=== PATIENT | female | born 1945 | race Caucasian/White ===

== ENCOUNTER → 2017-10-24 10:29 | Outpatient (CLI) | payer MEDICARE, SELFPAY ==
--- NOTE | 2017-10-24 10:39 | NM_ITS ---
CLINICAL: 71-year-old female with reported history of carcinoma of the breast presenting for evaluation of resting left ventricular myocardial function. RESTING RADIONUCLIDE VENTRICULOGRAPHY COMPARISON: None available FINDINGS: Following the intravenous administration of 25.8 mCi of 99m Tc Ultratag RBCs, the resting labeled blood pool radionuclide ventriculogram reveals: 1. The left ventricular ejection fraction was calculated to be 59.0 % by equilibrium technique. 2. Left and right ventricular wall motion is considered normal and uniform in all projections. NM/MUGA Rest or Stress - Multi IMPRESSION: 1. NORMAL resting labeled blood pool radionuclide ventriculography. A. Preservation of left ventricular systolic function as described above. Electronically Signed: Rayo Melvin DO at 12:44 EDT Tel , Service support ,
== END ==
PROVIDERS: Visit Provider Internal Medicine Medical Oncology
DX: Z01.818 Encounter for other preprocedural examination (principal); C50.911 Malignant neoplasm of unspecified site of right female breast
CPT/HCPCS: 78473; A9560

== ENCOUNTER 2017-10-28 08:47 | Day surgery (SDC) | payer MEDICARE, SELFPAY ==
[2017-10-28] VITALS (8 sets, daily range): BP systolic 123–142; BP diastolic 61–89; PULSE 53–79; RESP 14–18; TEMP 36.4–36.6; O2SAT 92–100; BMI 32.3
[2017-10-28] MEDS: Cefazolin 2 GM in 0.9% Normal Saline 100 ML IV (10:00)
[2017-10-28] MEDS: Bupivacaine Mpf 0.5% 30 ML VIAL (10:18)
--- NOTE | 2017-10-28 11:00 | RAD_ITS ---
STUDY: X-RAY CHEST REASON FOR EXAM: Female, 71 years old. Post port placement. TECHNIQUE: Single AP portable view of the chest. COMPARISON: None. FINDINGS: A left-sided portacatheter has been inserted. The tip is in the midportion of the superior vena cava. Scattered calcified granulomas. Mild lingular scarring. There is no demonstrated pleural abnormality. Normal size heart. Normal mediastinum and rah. Normal visualized pulmonary arteries. There is atherosclerotic calcification of the aortic arch with tortuosity. Normal visualized thoracic spine. Normal visualized ribs, clavicles, and shoulders. There is no demonstrated abnormality of the visualized soft tissue structures of the upper abdomen. RAD/Chest 1 View (Portable) IMPRESSION: The tip of the port is in the midportion of the superior vena cava. Electronically Signed: Chang Shepard MD at 11:59 EDT Tel [phone], Service support ,
--- NOTE | 2017-10-28 11:16 | DCINST_ITS ---
Discharge Diet: No Restrictions - Pain medication may cause nausea. You should typically eat light foods as you take your pain medication. Discharge Activity: Return to Normal Activity, May Shower - with your bandage in place in 1-2 days after surgery. DO NOT SHOWER WHEN YOUR PORT IS ACCESSED. Call your doctor if your incision/area has: Continuous Slow Oozing, Sudden Increased Bleeding, Increased Pain/ Swelling, Increased Redness Call your doctor if you observe: Fever of 101 or Higher Remove Dressing in (days):: 2 - When you remove the bandage, leave the steri- strips intact until they fall off. Allergies/Adverse Reactions: Allergies No Known Allergies Allergy (Verified 10/24/17 09:32) Medications to take at Discharge Albuterol Aerosols [Ventolin Aerosols] PRN 10/21/17 Albuterol Inhaler [Ventolin Hfa] INHALATION DAILY 10/21/17 Fluticasone/Vilanterol [Breo Ellipta 200-25 Mcg INH] INHALATION QODAY 10/21/17 Levothyroxine [Synthroid] 137 mcg PO DAILY 10/21/17 Metformin HCl [Metformin HCl ER] 500 mg PO DAILY 10/21/17 Primary Care Physician: Bessy Asher [Primary Care Provider] - Please Follow Up With: Laith English MD When: call tomorrow to make 7-10 day appt for suture removal [phone]
--- NOTE | 2017-10-28 11:16 | PCM.OPRPT ---
Problem List (1) Breast cancer, right breast Status: Chronic Qualifiers: Breast location: upper outer quadrant of breast Estrogen receptor status: positive Patient sex: female Qualified Code(s): C50.411 - Malignant neoplasm of upper-outer quadrant of right female breast; Z17.0 - Estrogen receptor positive status [ER+] (2) Encounter for insertion of venous access port Status: Acute Report of Operation Date of Procedure: 10/28/17 Pre-Operative Diagnosis: Breast cancer. Encounter for venous vascular device Post-Operative Diagnosis: Same Surgery/Procedure Performed:: Ultrasound and fluoroscopy-guided left chest port placement utilizing left IJ Description of Procedure: After obtaining informed consent patient was brought back to the operating room MAC anesthesia was induced and the left chest and neck were prepped in normal sterile fashion. Ultrasound was used to evaluate both IJ is in the left IJ was selected. Next, using a needle, the left IJ was accessed and a guidewire was passed on into the superior vena cava under fluoroscopy guidance. A small incision was made over the puncture site and the dilator introducer was placed over the guidewire. Next this was capped and the pocket was made for the port. 1% lidocaine with epinephrine was injected in the proposed port site. An incision was made with scalpel. Electrocautery was used to make a pocket under the skin and subcutaneous tissue. Hemostasis was obtained. Next, the catheter was tunneled up to the neck incision site and placed through the introducer. The peel-away introducer was removed and the position of the catheter was confirmed on fluoroscopy. Next, the catheter was trimmed and attached to the port with the locking device. Interrupted 2-0 PDS were used to anchor the port to the chest wall and then the port was placed inside the pocket. The pocket was then flushed with saline and the port irrigated with saline. There was good blood return and the port flushed easily. Next, heparin was injected into the port. The skin was closed with subcutaneous interrupted 3-0 Vicryl sutures and interrupted skin 3-0 nylon sutures. A single 3-0 Vicryl sutures placed under the skin at the neck incision site. Steri-Strips were placed as well as op sites. Patient tolerated procedure well, was taken to PACU in stable condition. Chest x-ray will be obtained. Grafts/Implants Used: 8 [employer] - Admit VTE Documentation VTE Present on Admission: Yes
== END 2017-10-28 13:01 | disposition home or self-care (01) ==
LOC: SDC 08:48 → AC 08:50
PROVIDERS: Visit Provider Surgery
PROC: (CPT 36561; principal; 2017-10-28 10:15)
DX: Z45.2 Encounter for adjustment and management of vascular access device (principal); C50.411 Malignant neoplasm of upper-outer quadrant of right female breast; Z17.0 Estrogen receptor positive status [ER+]; F17.200 Nicotine dependence, unspecified, uncomplicated; J45.909 Unspecified asthma, uncomplicated
CPT/HCPCS: 36561; 96372; 71045; 77001; J7120; C1788

== ENCOUNTER → 2018-01-06 14:17 | Outpatient (CLI) | payer MEDICARE, SELFPAY ==
--- NOTE | 2018-01-06 14:20 | ECHOD_ITS ---
Reason For Study: Breast Cancer, high risk meds. Procedure This was a 2D Doppler, Color Flow transthoracic echocardiogram. The study was technically difficult. Exam performed in department. Left Ventricle Normal LV size. Left ventricular systolic function is normal. The estimated ejection fraction is 55 %. No regional wall motion abnormalities noted. Right Ventricle Normal RV size. Normal systolic function. Atria The left atrium is mildly enlarged. Normal right atrium. No doppler evidence for ASD. Mitral Valve There is no mitral annular calcification. Mild focal mitral valve calcification of the posterior leaflet. Mild (1+) mitral valve insufficiency. Tricuspid Valve Normal tricuspid valve. Trivial tricuspid valve insufficiency. Unable to estimate RV systolic pressure/pulmonary artery pressure due to technically difficult study. Aortic Valve The aortic valve is not well visualized. Pulmonic Valve The pulmonic valve is not well visualized. Great Vessels Normal sized aortic root. Pericardium/Pleural No pericardial effusion. MMode/2D Measurements & Calculations LVIDd: 5.3 cm IVSd: 1.1 cm Ao root diam: 2.6 cm LVIDs: 3.2 cm LVPWd: 1.2 cm LA dimension: 3.9 cm RVDd: 3.5 cm FS: 39.0 % LAV(MOD-bp): 90.8 ml LA A4 area: 25.0 cm2 RA A4 area: 14.8 cm2 LAV(MOD-bp) Indexed: 49.4 ml/m2 LAV(MOD-sp2): 87.8 ml LAV(MOD-sp4): 88.2 ml Doppler Measurements & Calculations MV E max jefry: 109.0 cm/sec Lat Peak E' Jefry: 9.7 cm/sec Med Peak E' Jefry: 8.0 cm/sec MV A max jefry: 103.1 cm/sec E/E' lat: 11.2 E/E' med: 13.6 MV E/A: 1.1 Ao V2 max: 148.7 cm/sec LV V1 max: 106.4 cm/sec PA V2 max: 91.3 cm/sec Ao max P.8 mmHg LV V1 max P.5 mmHg Interpretation Summary The study was technically difficult. Left ventricular systolic function is normal. The estimated ejection fraction is 55 %. The left atrium is mildly enlarged. Mild focal mitral valve calcification of the posterior leaflet. Mild (1+) mitral valve insufficiency. Trivial tricuspid valve insufficiency. Unable to estimate RV systolic pressure/pulmonary artery pressure due to technically difficult study. Transmitral diastolic flow velocities suggest diastolic dysfunction (pseudonormal pattern). Ordering Physician: Eloise New Referring Physician: Gayle Asher Performed By: Carissa Chow, ALEXANDRA, RVT
== END ==
DX: C50.919 Malignant neoplasm of unspecified site of unspecified female breast (principal); Z79.899 Other long term (current) drug therapy
CPT/HCPCS: 93306

== ENCOUNTER → 2018-02-10 11:52 | Outpatient (CLI) | payer MEDICARE, SELFPAY | PROVIDERS: Visit Provider Internal Medicine Medical Oncology | DX: R19.7 Diarrhea, unspecified (principal) | CPT/HCPCS: 87493 ==

== ENCOUNTER 2018-02-12 12:16 | Inpatient (IN) | payer MEDICARE, SELFPAY ==
[2018-02-12] VITALS (12 sets, daily range): BP systolic 108–127; BP diastolic 38–94; PULSE 69–116; RESP 16–19; TEMP 36.5–37.4; O2SAT 95–100; BMI 27.8; BMI 28.0; BMI 28.1
--- NOTE | 2018-02-12 12:51 | EKG12_ITS ---
Test Reason : ABN LABS Blood Pressure : / mmHG Vent. Rate : 090 BPM Atrial Rate : 090 BPM P-R Int : 150 ms QRS Dur : 084 ms QT Int : 378 ms P-R-T Axes : 034 072 257 degrees QTc Int : 462 ms Sinus rhythm with Premature atrial complexes ST & T wave abnormality, consider inferior ischemia ST & T wave abnormality, consider anterolateral ischemia Abnormal ECG Confirmed by JAZMINE SALDIVAR, ELLIOT ([id number]), make up editor KATLYN ALBERTO ([id number]) on 02/16/2018 3:01:11 PM Referred By: ANANT Confirmed By:ELLIOT LUCERO MD
[2018-02-12] MEDS: Ondansetron 4 MG/2 ML Vial IV ×2 (12:57→20:14)
[2018-02-12] MEDS: 0.9% Normal Saline 1,000 ML 150 ML IV ×2 (12:57→19:28)
--- NOTE | 2018-02-12 12:57 | ED.RN ---
NO OLD EKG
--- NOTE | 2018-02-12 13:25 | HP.PCM_ITS ---
Problem List (1) Diarrhea Status: Acute Qualifiers: Diarrhea type: unspecified type Qualified Code(s): R19.7 - Diarrhea, unspecified (2) Chemotherapy-induced nausea Status: Acute (3) Asthma with COPD Status: Chronic (4) Tobacco use Status: Chronic (5) History of alcohol abuse Status: Chronic (6) Prediabetes Status: Chronic (7) Hypothyroidism (acquired) Status: Chronic (8) Breast cancer, right breast Status: Chronic Qualifiers: Breast location: upper outer quadrant of breast Estrogen receptor status: positive Patient sex: female Qualified Code(s): C50.411 - Malignant neoplasm of upper-outer quadrant of right female breast; Z17.0 - Estrogen receptor positive status [ER+] History of Present Illness Date of Admission: 02/12/18 Chief Complaint: Malaise, Weakness, Diarrhea, Electrolyte disturbances The patient is a 72 y/o F w/ PMHx: Asthma w/ Suspected Chronic COPD, Ongoing Tobacco use, Prediabetes, History of EtOH Abuse, Hyperthyroidism s/p irradiation -->hypothyroidism, 07/2017 Dx R Breast CA right breast specifically invasive ductal carcinoma, and metastatic disease in Right Axillary lymph node, ER/CA positive, HER-2 3+ positive following w/ Dr. Hoyt who presents to the [facility] ED on 02/12/18 per recommendation of oncology with history of recent treatment change to C5D1 on 02/03/2018 with following onset more severe than prior nausea, emesis and profuse diarrhea starting on 02/08/18 and ongoing without improvement w/ imodium administration with Oncology visit x 3 with notable hypokalemia on day of current presentation prompting referral. . She developed nausea/vomiting and watery diarrhea on 02/08/2018. She was noted to have had her stool assessed for c- diff per Oncology office at onset which was noted to be negative. She was also given IVF supplementation in their office but did not improve. She notes she has only been able to tolerate clears and has had no appetite. In the ED work- up included T 97.7, heart rate 86, BP 116/64, respiratory rate 16, 100% on room air, recent oncology obtained CBC with WBC 15.7, hemoglobin 11, platelet 179 with noted recent administration of Neulasta, CMP with potassium 2.4, glucose 118, AST/ALT 13/24, alkaline phosphatase 140, EKG with nonspecific ST and T- wave changes. In the emergency room patient administered potassium chloride 40 mEq IV, normal saline 1 L, Zofran. Past Medical History Past Medical History (Chronic Problems): Chronic Problems (Last Reviewed 02/12/18 @ 11:29 by Didi Chahal) Breast cancer, right breast (Chronic) Asthma with COPD (Chronic) Tobacco use (Chronic) History of alcohol abuse (Chronic) Prediabetes (Chronic) Hypothyroidism (acquired) (Chronic) Medical History: Medical History (Last Reviewed 02/12/18 @ 11:29 by Didi Chahal) Fracture, skull S02.91XA Abnormal breast biopsy R89.7 right breast 08/19/17 Asthma J45.909 Breast cancer C50.919 History of elevated glucose Z86.39 pre-diabetic Hyperthyroidism E05.90 port placement 10-28-17 Allergies No Known Allergies Allergy (Verified 02/12/18 12:19) Home Medications: Ambulatory Orders Medication Instructions Recorded Albuterol Aerosols [Ventolin 1 puff INHALATION DAILY 10/21/17 Aerosols] Albuterol Inhaler [Ventolin Hfa] 1 puff INHALATION DAILY 10/21/17 Fluticasone/Vilanterol [Breo 1 puff INHALATION QODAY 10/21/17 Ellipta 200-25 Mcg INH] Levothyroxine [Synthroid] 137 mcg PO DAILY 10/21/17 Metformin HCl [Metformin HCl ER] 500 mg PO DAILY 10/21/17 Dexamethasone [Decadron] 8 mg PO BID 63 Days #36 tab 10/30/17 Lidocaine/Prilocaine 30 gm TP DAILY PRN PRN 30 Days #1 10/30/17 [Lidocaine-Prilocaine Cream] cream..g. Ondansetron HCl [Zofran] 4 mg PO Q8H PRN PRN 10 Days #30 tab 10/30/17 Surgical History: Surgical History (Last Reviewed 02/12/18 @ 11:29 by Didi Chahal) H/O toe surgery Z98.890 cyst removed History of appendectomy Z90.49 History of back surgery Z98.890 Surgical History: - - Lumbar back surgery, left great toe surgery, port placement, appendectomy, possible intervention for fracture school as , right breast node ?2 and lymph node biopsies. Psychiatric History: No pertinent psych hx [employer] History: No pertinent [employer] history Lives: Spouse/ Significant Other - Patient lives with her spouse who she notes is in the initial stages of mild to moderate dementia. Smoking Status: Current every day smoker Tobacco Use: Cigarettes - Patient continues to smoke, notes less than 1 pack per day since age 19 years old. Alcohol: Sober - Patient has been sober since October 2017 but prior to this drink at least 4 beers per day. Drugs: None - *Family History Maternal Family History: Family History (Last Reviewed 02/12/18 @ 11:29 by Didi Chahal) Brother Cancer Father Lung cancer Aunt Cancer History Items: - - Patient notes a maternal family history of heart disease including heart failure in addition to pulmonary ongoing issues during her lifetime with history of premature . Paternal Family History: Family History (Last Reviewed 02/12/18 @ 11:29 by Didi Chahal) Brother Cancer Father Lung cancer Aunt Cancer History Items: - - She notes a paternal family history of lung cancer but is unclear the type and states that it was outside the lung but progressed into the lung. Review of Systems Constitutional: Reports: Anorexia, Malaise, Weakness, Fatigue. Denies: Chills, Fever, Weight Change HEENT: Denies: Head Aches, Sinus Congestion, Sinus Drainage Cardiovascular: Denies: Chest Pain, Palpitations Respiratory: Reports: Shortness of breath upon exertion, Wheezing. Denies: Cough, Shortness of breath at rest, Sputum production Gastrointestinal: Reports: Abdominal Pain, Diarrhea, Nausea, Vomiting Genitourinary: Denies: Dysuria Musculoskeletal: Denies: Joint Pain, Joint Tenderness Skin: Denies: Rash, Wounds Neurological: Denies: Numbness, Tingling, Focal weakness Psychiatric: Denies: Anxiety, Depression, Homicidal Ideations, Suicidal Ideations Hematologic/ Lymphatic: Reports: Anemia. Denies: Easy Bruising, Easy Bleeding VTE Information - Inpt Only VTE Present on Admission: No VTE Mechan Device Prophylaxis: SCD's VTE Pharm Prophylaxis ordered?: Yes Patient Problems: Active and Suspected Problems (Last Reviewed 02/12/18 @ 11:29 by Didi Chahal) Educational circumstance (Acute) Chemotherapy-induced nausea (Acute) Encounter for monitoring cardiotoxic drug therapy (Acute) Chemotherapy management, encounter for (Acute) Exertional dyspnea (Acute) Chemotherapy management, encounter for (Acute) Diarrhea (Acute) - Physical Exam Vital Signs Temp Pulse Resp BP Pulse Ox 97.7 F L 109 H 18 119/59 L 98 02/12/18 12:17 02/12/18 13:21 02/12/18 13:21 02/12/18 13:21 02/12/18 13:21 Oxygen Delivery Method Room Air Weight: 162 lb Body Mass Index (BMI) 27.8 Assessment/Plan All Active Problems (Last Reviewed 02/12/18 @ 11:29 by Didi Chahal) Encounter for insertion of venous access port (Acute) Educational circumstance (Acute) Chemotherapy-induced nausea (Acute) Encounter for monitoring cardiotoxic drug therapy (Acute) Chemotherapy management, encounter for (Acute) Exertional dyspnea (Acute) Sore throat (Resolved) Perineal pain (Resolved) Chemotherapy management, encounter for (Acute) Diarrhea (Acute) The patient is a 72 y/o F w/ PMHx: Asthma w/ Suspected Chronic COPD, Ongoing Tobacco use, Prediabetes, History of EtOH Abuse, Hyperthyroidism s/p irradiation -->hypothyroidism, 07/2017 Dx R Breast CA right breast specifically invasive ductal carcinoma, and metastatic disease in Right Axillary lymph node, ER/CA positive, HER-2 3+ positive following w/ Dr. Hoyt who presents to the [facility] ED on 02/12/18 per recommendation of oncology with history of recent treatment change to C5D1 on 02/03/2018 with following onset more severe than prior nausea, emesis and profuse diarrhea starting on 02/08/18 and ongoing without improvement w/ imodium administration with Oncology visit x 3 with notable hypokalemia on day of current presentation prompting referral. (1) N/V/D, ? Gastroenteritis, Suspected more likely secondary to her New Chemotherapeutic Agent: Will admit to telemetry given severe hypokalemia, will continue aggressive hydration, will obtain c-diff, stool cx, O[place] with repeat AM CBC. Will not start antibiotics at this time given unclear source pending stool studies and as noted suspect more likely secondary to her chemotherapy. Anti-emetics, pain regimen PRN. (2) Invasive ductal carcinoma, R Breast w/ Metastatic Disease: 07/2017 Dx R Breast CA right breast specifically invasive ductal carcinoma, and metastatic disease in Right Axillary lymph node, ER/CA positive, HER-2 3+ positive following w/ Dr. Hoyt, mag 1.8, given 1 gm and obtain phos level with supplementation as needed. Presentation may be secondary to recent new chemotherapeutic agent. If stool cultures negative may consider initiation of immodium and if needed may consider sandostatin. (3) Hypokalemia: Admission K+ 2.4, supplementation given in the ED, will repeat level this evening and repeat level in AM. (4) Prediabetes: Hold oral home regimen, clears-->ADA diet once able to tolerate , accu checks w/ ISS, HgbA1c. (5) Asthma w/ Suspected Chronic COPD: ATC duonebs, PRN albuterol, HOB, IS parameters. (6) History of alcohol abuse: Patient sober since 10/2017 but prior to this noted at least 4 EtOH drinks per day prior. Maintain on MVI, thiamine and folic acid. (7) Tobacco Abuse: Encouraged cessation, inpatient consultation per RT, NR if desired. (8) Hypothyroidism: Continue home synthroid regimen, history of hyperthyroidism s/p irradiation. (9) GERD: Famotidine. (10) Chronic Anemia, Macrocytic, secondary to her Chemotherapeutic and #2: As noted given EtOH history also started on MVI, thiamine and folic acid. Fe panel , ferritin, vitamin B12 and folic acid levels pending. (11) DVT Prophylaxis: SCDs, lovenox. (12) CODE status: Patient does have living will in place and HCPOA. Currently it is listed as 1st her who has dementia thus it would pass to her 2nd listed her son. She notes this has not been updated in ~ 20 years. Encouraged her to review this and make updates given the prolonged time of review. Discussed CODE status at length including difference between FULL code, DNR-CCA and DNR-CC status. Following discussions about the differences in these status, requested Full Code status w/ her Living Will to then transition to withdrawal of care if futile. Advanced Care Planning Face to Face Time: 17 minutes. Code Visit Inpatient E&M: 20829 Init Hosp L3
--- NOTE | 2018-02-12 13:56 | NURSING ---
CALLED BETSY IN ER. [facility] TO SEND PT TO FLOOR.
--- NOTE | 2018-02-12 14:11 | ED.DCSUM_ITS ---
- ER Visit Summary Date of Service: 02/12/18 Chief Complaint: Nausea, vomiting, diarrhea History of Present Illness: The patient is a 72 F with history of breast cancer for which she is undergoing treatment. She finished her last chemotherapy cycle on February 03. She has had diarrhea over the past 6 days. She was seen by the oncology office twice this week. Outpatient C. difficile test was reportedly negative. Repeat labs at today's visit shows potassium of 2.4. Patient continues to have nausea with mild vomiting as well as copious diarrhea. She states she gets abdominal cramping just before bowel movements. She denies fever. Physical Examination: Vital signs are unremarkable. Patient sitting upright in bed no acute distress. Heart is regular rate and rhythm. Lung sounds are clear. Abdomen is soft nontender. Active bowel sounds noted throughout. Test Results: Lab results from this morning are reviewed. White count is 15.7 but I was advised she had recently received Neulasta. Hemoglobin is 11.0. Chemistry studies were potassium of 2.4 and glucose of 118. EKG obtained here shows mild inferior lateral ST depression with sinus rhythm at a rate of 90. There are no prior studies available for comparison. Emergency Department Course and Treatment: Patient is given IV fluids and Zofran. Potassium chloride IV is started. Patient was discussed with Dr. Bueno and will be admitted for further treatment. Treatment Plan: [] Disposition: Admit Impression: Hypokalemia This note was generated with [employer] dictation software. It may contain incorrect words, spelling, and punctuation that were not noted in review of the chart prior to signing ED Disposition - Plan for ED Patient: Disposition: Acute Care Hospital [facility] Chief Complaint: Abn Labs
[2018-02-12] MEDS: Ipratropium/Albuterol Sulfate 3 ML AMPUL.NEB INHALATION (15:25)
--- NOTE | 2018-02-12 15:51 | ONC.CONS.INP ---
Subjective Date of Service:: 02/12/18 Chief Complaint: Breast cancer History of Present Illness: Ms. Berenice Larose is a very pleasant 72-year-old woman with a PMH for COPD, tobacco use and hypothyroidism, diagnosed with invasive ductal carcinoma, stage IIB on 08/22/17. 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 No other evidence to suggest distant metastatic disease. Thus, she began neoadjuvant, HER2 targeted therapy with Taxotere/Cytoxan/Perjeta/Herceptin on 11/10/17. Has tolerated fair with the exception of fatigue, nausea-typically well controlled with PO antiemetics and diarrhea-again typically well controlled with supportive medications. She received cycle 5 on 02/03/18, supported with G-CSF on day 2. Developed vomiting and diarrhea on 02/08/18. Was evaluated in the ambulatory clinic setting, supported with IV hydration. Stool for Cdiff was found to be negative at that time, however diarrhea persisted. Found to exhibit severe hypokalemia, taken to [facility] ED and subsequently admitted for management of hypokalemia and diarrhea. Upon entering the room, patient is sitting upright in bed eating sherbet. States I feel better already in terms of dizziness and nausea. Although admits to 2 episodes of diarrhea in the last 2 hours. Continues to describe as watery and black. Otherwise denies any outstanding complaints since she was evaluated by me earlier today in clinic. Past Medical History: Chronic Problems (Last Reviewed 02/12/18 @ 11:29 by Didi Chahal) Breast cancer, right breast (Chronic) Asthma with COPD (Chronic) Tobacco use (Chronic) History of alcohol abuse (Chronic) Prediabetes (Chronic) Hypothyroidism (acquired) (Chronic) Past Medical/Surgical History: Past Medical History - Most Recent Inpatient Visit Past Medical History Start: 02/12/18 14:30 Text: Status: Complete Freq: ONCE Protocol: Document 02/12/18 14:59 MJO (Rec: 02/12/18 15:03 MJO [id number]) BMI Required to complete PMH What is Patient's BMI 28.1 Past Medical History Unable History Recalled Yes Query Text:Pt Unable/Family Not Present Neurologic Medical History Hx Stroke/TIA No Hx Dementia/Alzheimer's No Hx Parkinson's Disease No Hx Seizures No Hx Multiple Sclerosis No Hx Migraines Yes Cardiac Medical History VTE Present on Admission No Hx of Deep Vein Thrombosis/VTE/PE No Hx Hypertension No Hx Chest Pain/Angina No Hx Heart Attack No Hx Cardiac Surgery/Stents/Etc. No Hx Heart Failure No Hx Pacemaker/AICD No Hx Irregular Heartbeat and/or Afib No Hx Anticoagulant Therapy No Query Text:(Coumadin, Aspirin, Plavix, Xarelto, etc.) Hx Pain in Legs when Walking/Leg Cramps No Respiratory Medical History Hx COPD No Hx Emphysema No Hx Smoking Yes Smoking Status Current every day smoker Tobacco Use Cigarettes Years Smoking 40 Hx Smoking Cessation Counseling No Hx Smoking Exposure Yes Hx Tobacco Use in last 12 months Yes Sent to PSN Yes Hx of Pipe Smoking No Hx of Cigar Smoking No Hx Sleep Apnea No Do you snore loudly (louder than talking No or can be heard through closed doors)? Do you often feel tired/ fatigued/ No sleepy during daytime? Has anyone observed you stop breathing No during sleep? STOP Results Negative GI Medical History Hx Ulcer No Hx Hepatitis No Hx Cirrhosis No Hx GI Bleed No Hx Unplanned Weight Loss Yes Genitourinary Medical History Indwelling Catheter in Place on Arrival/ No Admission Hx Renal Disease No Hx Dialysis No Musculoskeletal History Hx Arthritis Yes: fingers Hx Rheumatoid Arthritis No Endocrine Medical History Hx Diabetes Yes: pre diabetes Hx Thyroid Disease Yes: on meds Hematologic Medical History Hx of Blood Transfusion No Hx of Transfusion in last 3 Months No Ever experience any problems with No transfusion(s)? Hx of Preganancy in last 3 Months No Nurse Filling Out Transfusion & MORR Questions: Date: 02/12/18 Time: 15:02 Psycho/Social Medical History Hx Depression No Hx Anxiety No Hx Behavior Disorder No Hx Alcohol Use Yes: 4 beers and several drinks daily Hx Substance Use No Other Medical History Hx Blood Disorders No Hx Anemia No Hx Cancer Yes: BREAST Hx Drug Resistant Organism No Wound/Pressure Injury Present on Arrival No /Admission Query Text:If yes, chart assessment in Shift/Clinical Findings Central Line/PICC/VAD Present on Arrival Yes /Admission Antibiotics within last 7 days? No Methicillin Resistant Staphylococcus aureus Screening Active MRSA No Risk for Readmission Number of Risk Factors 6 At Risk for Readmission Patient is At Risk For Readmission Patient is eligible for Call Back Y Past Medical History (Last Reviewed 02/12/18 @ 11:29 by Didi Chahal) Fracture, skull (Acute) Abnormal breast biopsy (Acute) Asthma (Acute) Breast cancer (Acute) History of elevated glucose (Acute) Hyperthyroidism (Acute) port placement (Acute) Past Surgical History (Last Reviewed 02/12/18 @ 11:29 by Didi Chahal) H/O toe surgery (Acute) History of appendectomy (Acute) History of back surgery (Acute) Maternal Family History: Family History (Last Reviewed 02/12/18 @ 11:29 by Didi Chahal) Brother Cancer Father Lung cancer Aunt Cancer Family History: - - Patient notes a maternal family history of heart disease including heart failure in addition to pulmonary ongoing issues during her lifetime with history of premature . Paternal Family History: Family History (Last Reviewed 02/12/18 @ 11:29 by Didi Chahal) Brother Cancer Father Lung cancer Aunt Cancer Family History: - - She notes a paternal family history of lung cancer but is unclear the type and states that it was outside the lung but progressed into the lung. - Social History Lives: Spouse/ Significant Other - Patient lives with her spouse who she notes is in the initial stages of mild to moderate dementia. Smoking Status: Current every day smoker Tobacco Use: Cigarettes Alcohol: Sober - Patient has been sober since October 2017 but prior to this drink at least 4 beers per day. Drugs: None Allergies/Adverse Reactions: Allergy/AdvReac Type Severity Reaction Status Date / Time No Known Allergies Allergy Verified 02/12/18 12:19 Review of Systems Constitutional:: Reports: Weakness, Fatigue. Denies: Fever, Sweats, Weight loss, Appetite change, Chills Cardiovascular:: Reports: Dyspnea on exertion. Denies: Chest pain, Palpitations, Orthopnea, PND, Shortness of breath Respiratory: Reports: Cough, Wheezing. Denies: Hemoptysis, Shortness of Breath Gastrointestinal:: Reports: Nausea, Diarrhea. Denies: Abdominal pain, Vomiting, Constipation, Hematochezia Genitourinary: Denies: Dysuria, Hematuria, Abnormal vaginal bleeding, Flank pain Musculoskeletal:: Denies: Back pain, Myalgia, Arthralgia Skin: Denies: Rash, Skin Changes, Wounds Neurological:: Denies: Headache, Dizziness, Numbness, Tingling, Visual changes, Tinnitus, Hearing loss Psychiatric: Denies: Anxiety, Depression, Homicidal Ideations, Suicidal Ideations Vital Signs Height 5 ft 4 in Weight: 163 lb 9.328 oz Weight in Pounds 163.6 lbs Pulse Ox 99 Temperature 99.4 F Pulse Rate 69 Respiratory Rate 16 Blood Pressure 123/67 Blood Pressure Position Semi-Fowlers - Physical Exam General: Alert, Oriented x3, No apparent distress HEENT: Atraumatic, Normocephalic, - - wears glasses Oropharynx:: Dry mucosa. Negative for: Ulcerated lesions Neck:: Supple, Trachea midline. Negative for: JVD, bilateral Cardiac:: Regular rate, Regular rhythm, Normal S1, Normal S2 Lungs: Wheezes - faint expiratory, Diminished, Excusion symmetrical. Negative for: Rhonchi, Tachypneic, Increased respiratory effort Abdomen:: Bowel sounds x 4, Soft, Non-tender, Non-distended. Negative for: Hepatosplenomegaly Extremities:: Negative for: Cyanosis, Edema Neurological: Neuro grossly intact Skin:: - - port right upper chest accessed with gripper covered with DSD. Negative for: Lesions, Rash, Petechiae, Ecchymosis Psychiatric:: Appropriate affect, Euthymic Lymphatics:: Negative for: Cervical lymphadenopathy, Supraclavicular lymphadenopathy, Axillary lymphadenopathy Assessment and Plan 1. Stage IIB(cT2 cN1 M0), invasive ductal carcinoma upper outer quadrant right breast, ER/[place] positive, Her2 3+ positive by IHC- Began neoadjuvant Taxotere/carboplatin/Perjeta/Herceptin on 11/10/17. Overall, has tolerated treatment and Neulasta well with c/o N/V/D controlled with Zofran and Imodium and moderate to severe fatigue although subsequent to cycle 5 administered on 02/03/18 toxicity seems to have increased. Echo 01/06/18 shows normal LV function and ejection fraction 55%. CBC values are acceptable for GOPI, leukocytosis reflects support with Neulasta on day 2. 2. Hypokalemia secondary to diarrhea- as evidenced by K 2.4. Being addressed by primary team. 3. Diarrhea- Cdiff obtained 02/10/18 negative. It appears orders have been placed for enteric pathogen panel, cx and O&P. May consider adding guaiac given her description of black stools. Then if stools studies negative, aggressive management at least initially, with loperamide. 4. Chemotherapy induced anemia- As evidenced by Hgb 11 today. Continue to monitor. She was in agreement with the aforementioned plan. Eloise New, MSN, [employer], AOCNP Medications: Medications Added to Medication List This Visit Category Date Time Status 0.9% Normal Saline 1,000 ml Med 02/12/18 15:20 Active IV 150 mls/hr 0.9% Normal Saline 1,000 ml Med 02/12/18 15:20 Active IV 999 mls/hr 0.9% Saline Lock Med 02/12/18 15:06 Active 5 - 30 ml IV UD PRN Albuterol Aerosols [Ventolin Aerosols] Med 02/12/18 14:25 Active 2.5 mg INHALATION Q2H PRN PRN Enoxaparin [Lovenox] Med 02/13/18 10:00 Active 40 mg SC DAILY@1000 Ensure Clear Med 02/12/18 18:00 Active 120 ml PO 4X/DAY Famotidine [Pepcid] Med 02/12/18 22:00 Active 20 mg PO BID Folic Acid Med 02/13/18 08:00 Active 1 mg PO DAILY@0800 Hydrocodone Bitart/Apap 5-325 [[place] 5MG-325MG] Med 02/12/18 14:25 Active 1 - 2 tablet PO Q6H PRN PRN Insulin Lispro [Humalog kwikpen (BKC)] Med 02/12/18 16:00 Active See Protocol SC ACHS Ipratropium/Albuterol Sulfate [Duoneb] Med 02/12/18 14:25 Active 3 ml INHALATION Q6HWA.RT Labetalol [Trandate] Med 02/12/18 15:19 Active 10 mg IV Q4H PRN PRN Mag Hydrox/Al Hydrox/Simeth [Mylanta II] Med 02/12/18 14:25 Active 30 ml PO Q6H PRN PRN Magnesium Hydroxide [Milk Of Magnesia] Med 02/12/18 14:25 Active 30 ml PO DAILY PRN Magnesium Sulfate 1 gm Med 02/12/18 15:00 Active 0.9% Normal Saline 100 ml IV X1 Multivitamins,Ther W-Minerals [Multivitamin With Med 02/13/18 08:00 Active Minerals] 1 tablet PO DAILYCM Nicotine [Nicoderm Cq (PBKC)] Med 02/12/18 14:25 Active 7 mg TRANSDERM. DAILY PRN Ondansetron [Zofran] Med 02/12/18 14:25 Active 4 mg IV Q8H PRN PRN Temazepam [Restoril] Med 02/12/18 14:25 Active 15 mg PO QHS PRN PRN Thiamine Hydrochloride [Vitamin B1] Med 02/13/18 08:00 Active 100 mg PO DAILYCM morphine Inj Med 02/12/18 14:25 Active 1 - 2 mg IV Q4H PRN PRN proMETHazine [Phenergan] Med 02/12/18 14:25 Active 12.5 mg IV Q6H PRN PRN Primary Care Provider: Mike Asher MD Referring Provider: - Problem List (1) Breast cancer, right breast Status: Chronic Qualifiers: Breast location: upper outer quadrant of breast Estrogen receptor status: positive Patient sex: female Qualified Code(s): C50.411 - Malignant neoplasm of upper-outer quadrant of right female breast; Z17.0 - Estrogen receptor positive status [ER+] (2) Diarrhea Status: Acute Qualifiers: Diarrhea type: unspecified type Qualified Code(s): R19.7 - Diarrhea, unspecified (3) Chemotherapy-induced nausea Status: Acute
--- NOTE | 2018-02-12 16:00 | CON.PCM_ITS ---
Subjective Date of Service:: 02/12/18 Chief Complaint: Breast cancer History of Present Illness: Ms. Berenice Larose is a very pleasant 72-year-old woman with a PMH for COPD, tobacco use and hypothyroidism, diagnosed with invasive ductal carcinoma, stage IIB on 08/22/17. 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 No other evidence to suggest distant metastatic disease. Thus, she began neoadjuvant, HER2 targeted therapy with Taxotere/Cytoxan/Perjeta/ Herceptin on 11/10/17. Has tolerated fair with the exception of fatigue, nausea- typically well controlled with PO antiemetics and diarrhea-again typically well controlled with supportive medications. She received cycle 5 on 02/03/18, supported with G-CSF on day 2. Developed vomiting and diarrhea on 02/08/18. Was evaluated in the ambulatory clinic setting, supported with IV hydration. Stool for Cdiff was found to be negative at that time, however diarrhea persisted. Found to exhibit severe hypokalemia, taken to [facility] ED and subsequently admitted for management of hypokalemia and diarrhea. Upon entering the room, patient is sitting upright in bed eating sherbet. States I feel better already in terms of dizziness and nausea. Although admits to 2 episodes of diarrhea in the last 2 hours. Continues to describe as watery and black. Otherwise denies any outstanding complaints since she was evaluated by me earlier today in clinic. Past Medical History: Chronic Problems (Last Reviewed 02/12/18 @ 11:29 by Didi Chahal) Breast cancer, right breast (Chronic) Asthma with COPD (Chronic) Tobacco use (Chronic) History of alcohol abuse (Chronic) Prediabetes (Chronic) Hypothyroidism (acquired) (Chronic) Past Medical/Surgical History: Past Medical History - Most Recent Inpatient Visit Past Medical History Start: 02/12/18 14: 30 Text: Status: Complete Freq: ONCE Protocol: Document 02/12/18 14:59 MJO (Rec: 02/12/18 15:03 MJO [id number]) BMI Required to complete PMH What is Patient's BMI 28.1 Past Medical History Unable History Recalled Yes Query Text:Pt Unable/Family Not Present Neurologic Medical History Hx Stroke/TIA No Hx Dementia/Alzheimer's No Hx Parkinson's Disease No Hx Seizures No Hx Multiple Sclerosis No Hx Migraines Yes Cardiac Medical History VTE Present on Admission No Hx of Deep Vein Thrombosis/VTE/PE No Hx Hypertension No Hx Chest Pain/Angina No Hx Heart Attack No Hx Cardiac Surgery/Stents/Etc. No Hx Heart Failure No Hx Pacemaker/AICD No Hx Irregular Heartbeat and/or Afib No Hx Anticoagulant Therapy No Query Text:(Coumadin, Aspirin, Plavix, Xarelto, etc.) Hx Pain in Legs when Walking/Leg Cramps No Respiratory Medical History Hx COPD No Hx Emphysema No Hx Smoking Yes Smoking Status Current every day smoker Tobacco Use Cigarettes Years Smoking 40 Hx Smoking Cessation Counseling No Hx Smoking Exposure Yes Hx Tobacco Use in last 12 months Yes Sent to PSN Yes Hx of Pipe Smoking No Hx of Cigar Smoking No Hx Sleep Apnea No Do you snore loudly (louder than talking No or can be heard through closed doors)? Do you often feel tired/ fatigued/ No sleepy during daytime? Has anyone observed you stop breathing No during sleep? STOP Results Negative GI Medical History Hx Ulcer No Hx Hepatitis No Hx Cirrhosis No Hx GI Bleed No Hx Unplanned Weight Loss Yes Genitourinary Medical History Indwelling Catheter in Place on Arrival/ No Admission Hx Renal Disease No Hx Dialysis No Musculoskeletal History Hx Arthritis Yes: fingers Hx Rheumatoid Arthritis No Endocrine Medical History Hx Diabetes Yes: pre diabetes Hx Thyroid Disease Yes: on meds Hematologic Medical History Hx of Blood Transfusion No Hx of Transfusion in last 3 Months No Ever experience any problems with No transfusion(s)? Hx of Preganancy in last 3 Months No Nurse Filling Out Transfusion & MORR Questions: Date: 02/12/18 Time: 15:02 Psycho/Social Medical History Hx Depression No Hx Anxiety No Hx Behavior Disorder No Hx Alcohol Use Yes: 4 beers and several drinks daily Hx Substance Use No Other Medical History Hx Blood Disorders No Hx Anemia No Hx Cancer Yes: BREAST Hx Drug Resistant Organism No Wound/Pressure Injury Present on Arrival No /Admission Query Text:If yes, chart assessment in Shift/Clinical Findings Central Line/PICC/VAD Present on Arrival Yes /Admission Antibiotics within last 7 days? No Methicillin Resistant Staphylococcus aureus Screening Active MRSA No Risk for Readmission Number of Risk Factors 6 At Risk for Readmission Patient is At Risk For Readmission Patient is eligible for Call Back Y Past Medical History (Last Reviewed 02/12/18 @ 11:29 by Didi Chahal) Fracture, skull (Acute) Abnormal breast biopsy (Acute) Asthma (Acute) Breast cancer (Acute) History of elevated glucose (Acute) Hyperthyroidism (Acute) port placement (Acute) Past Surgical History (Last Reviewed 02/12/18 @ 11:29 by Didi Chahal) H/O toe surgery (Acute) History of appendectomy (Acute) History of back surgery (Acute) Maternal Family History: Family History (Last Reviewed 02/12/18 @ 11:29 by Didi Chahal) Brother Cancer Father Lung cancer Aunt Cancer Family History: - - Patient notes a maternal family history of heart disease including heart failure in addition to pulmonary ongoing issues during her lifetime with history of premature . Paternal Family History: Family History (Last Reviewed 02/12/18 @ 11:29 by Didi Chahal) Brother Cancer Father Lung cancer Aunt Cancer Family History: - - She notes a paternal family history of lung cancer but is unclear the type and states that it was outside the lung but progressed into the lung. - Social History Lives: Spouse/ Significant Other - Patient lives with her spouse who she notes is in the initial stages of mild to moderate dementia. Smoking Status: Current every day smoker Tobacco Use: Cigarettes Alcohol: Sober - Patient has been sober since October 2017 but prior to this drink at least 4 beers per day. Drugs: None Allergies/Adverse Reactions: Allergy/AdvReac Type Severity Reaction Status Date / Time No Known Allergies Allergy Verified 02/12/18 12:19 Review of Systems Constitutional:: Reports: Weakness, Fatigue. Denies: Fever, Sweats, Weight loss , Appetite change, Chills Cardiovascular:: Reports: Dyspnea on exertion. Denies: Chest pain, Palpitations , Orthopnea, PND, Shortness of breath Respiratory: Reports: Cough, Wheezing. Denies: Hemoptysis, Shortness of Breath Gastrointestinal:: Reports: Nausea, Diarrhea. Denies: Abdominal pain, Vomiting , Constipation, Hematochezia Genitourinary: Denies: Dysuria, Hematuria, Abnormal vaginal bleeding, Flank pain Musculoskeletal:: Denies: Back pain, Myalgia, Arthralgia Skin: Denies: Rash, Skin Changes, Wounds Neurological:: Denies: Headache, Dizziness, Numbness, Tingling, Visual changes, Tinnitus, Hearing loss Psychiatric: Denies: Anxiety, Depression, Homicidal Ideations, Suicidal Ideations Vital Signs Height 5 ft 4 in Weight: 163 lb 9.328 oz Weight in Pounds 163.6 lbs Pulse Ox 99 Temperature 99.4 F Pulse Rate 69 Respiratory Rate 16 Blood Pressure 123/67 Blood Pressure Position Semi-Fowlers - Physical Exam General: Alert, Oriented x3, No apparent distress HEENT: Atraumatic, Normocephalic, - - wears glasses Oropharynx:: Dry mucosa. Negative for: Ulcerated lesions Neck:: Supple, Trachea midline. Negative for: JVD, bilateral Cardiac:: Regular rate, Regular rhythm, Normal S1, Normal S2 Lungs: Wheezes - faint expiratory, Diminished, Excusion symmetrical. Negative for: Rhonchi, Tachypneic, Increased respiratory effort Abdomen:: Bowel sounds x 4, Soft, Non-tender, Non-distended. Negative for: Hepatosplenomegaly Extremities:: Negative for: Cyanosis, Edema Neurological: Neuro grossly intact Skin:: - - port right upper chest accessed with gripper covered with DSD. Negative for: Lesions, Rash, Petechiae, Ecchymosis Psychiatric:: Appropriate affect, Euthymic Lymphatics:: Negative for: Cervical lymphadenopathy, Supraclavicular lymphadenopathy, Axillary lymphadenopathy Assessment and Plan 1. Stage IIB(cT2 cN1 M0), invasive ductal carcinoma upper outer quadrant right breast, ER/[place] positive, Her2 3+ positive by IHC- Began neoadjuvant Taxotere/ carboplatin/Perjeta/Herceptin on 11/10/17. Overall, has tolerated treatment and Neulasta well with c/o N/V/D controlled with Zofran and Imodium and moderate to severe fatigue although subsequent to cycle 5 administered on toxicity seems to have increased. Echo 01/06/18 shows normal LV function and ejection fraction 55%. CBC values are acceptable for GOPI, leukocytosis reflects support with Neulasta on day 2. 2. Hypokalemia secondary to diarrhea- as evidenced by K 2.4. Being addressed by primary team. 3. Diarrhea- Cdiff obtained 02/10/18 negative. It appears orders have been placed for enteric pathogen panel, cx and O&P. May consider adding guaiac given her description of black stools. Then if stools studies negative, aggressive management at least initially, with loperamide. 4. Chemotherapy induced anemia- As evidenced by Hgb 11 today. Continue to monitor. She was in agreement with the aforementioned plan. Eloise New, MSN, [employer]ATOR-[employer], AOCNP Medications: Medications Added to Medication List This Visit Category Date Time Status 0.9% Normal Saline 1,000 ml Med 02/12/18 15:20 Active IV 150 mls/hr 0.9% Normal Saline 1,000 ml Med 02/12/18 15:20 Active IV 999 mls/hr 0.9% Saline Lock Med 02/12/18 15:06 Active 5 - 30 ml IV UD PRN Albuterol Aerosols [Ventolin Aerosols] Med 02/12/18 14:25 Active 2.5 mg INHALATION Q2H PRN PRN Enoxaparin [Lovenox] Med 02/13/18 10:00 Active 40 mg SC DAILY@1000 Ensure Clear Med 02/12/18 18:00 Active 120 ml PO 4X/DAY Famotidine [Pepcid] Med 02/12/18 22:00 Active 20 mg PO BID Folic Acid Med 02/13/18 08:00 Active 1 mg PO DAILY@0800 Hydrocodone Bitart/Apap 5-325 [[place] 5MG-325MG] Med 02/12/18 14:25 Active 1 - 2 tablet PO Q6H PRN PRN Insulin Lispro [Humalog kwikpen (BKC)] Med 02/12/18 16:00 Active See Protocol SC ACHS Ipratropium/Albuterol Sulfate [Duoneb] Med 02/12/18 14:25 Active 3 ml INHALATION Q6HWA.RT Labetalol [Trandate] Med 02/12/18 15:19 Active 10 mg IV Q4H PRN PRN Mag Hydrox/Al Hydrox/Simeth [Mylanta II] Med 02/12/18 14:25 Active 30 ml PO Q6H PRN PRN Magnesium Hydroxide [Milk Of Magnesia] Med 02/12/18 14:25 Active 30 ml PO DAILY PRN Magnesium Sulfate 1 gm Med 02/12/18 15:00 Active 0.9% Normal Saline 100 ml IV X1 Multivitamins,Ther W-Minerals [Multivitamin With Med 02/13/18 08:00 Active Minerals] 1 tablet PO DAILYCM Nicotine [Nicoderm Cq (PBKC)] Med 02/12/18 14:25 Active 7 mg TRANSDERM. DAILY PRN Ondansetron [Zofran] Med 02/12/18 14:25 Active 4 mg IV Q8H PRN PRN Temazepam [Restoril] Med 02/12/18 14:25 Active 15 mg PO QHS PRN PRN Thiamine Hydrochloride [Vitamin B1] Med 02/13/18 08:00 Active 100 mg PO DAILYCM morphine Inj Med 02/12/18 14:25 Active 1 - 2 mg IV Q4H PRN PRN proMETHazine [Phenergan] Med 02/12/18 14:25 Active 12.5 mg IV Q6H PRN PRN Primary Care Provider: Mike Asher MD Referring Provider: - Problem List (1) Breast cancer, right breast Status: Chronic Qualifiers: Breast location: upper outer quadrant of breast Estrogen receptor status: positive Patient sex: female Qualified Code(s): C50.411 - Malignant neoplasm of upper-outer quadrant of right female breast; Z17.0 - Estrogen receptor positive status [ER+] (2) Diarrhea Status: Acute Qualifiers: Diarrhea type: unspecified type Qualified Code(s): R19.7 - Diarrhea, unspecified (3) Chemotherapy-induced nausea Status: Acute
[2018-02-12 16:10] LABS: Ferritin 833 ng/mL (8-252); Hemoglobin A1c 5.4 % (4.2-6.3); Iron 90 ug/dL (50-170); Iron Binding Capacity,Total 246 ug/dL (250-450); PERCENT IRON SATURATION 36.6 % (15.0-55.0); Phosphorus 3.9 mg/dL (2.5-4.9)
[2018-02-12 16:26] LABS: Bedside Glucose 93 mg/dL (70-110)
[2018-02-12] MEDS: 0.9% Normal Saline 1,000 ML 999 ML IV (18:15)
[2018-02-12] MEDS: Magnesium Sulfate 1 GM in 0.9% Normal Saline 100 ML IV (19:28)
[2018-02-12] MEDS: 0.9% NaCl Peripheral Flush Adult/Peds IV ×2 (20:14→22:37)
[2018-02-12 21:40] LABS: Anion Gap 10 (5-15); BUN 14 mg/dL (7-18); BUN/Creat Ratio 20.8 RATIO (10-20); Calcium,Total 7.5 mg/dL (8.5-10.1); Chloride 109 mmol/L (98-107); Creatinine, Serum 0.67 mg/dL (0.55-1.02); EST Glomerular Filtration Rate 92 mL/min (>60); Est Glom Filt Rate - Afr Amer 111 mL/min (>60); Glucose 88 mg/dL (74-106); Potassium 2.3 mmol/L (3.5-5.1); Sodium Level 142 mmol/L (136-145)
[2018-02-12] MEDS: Famotidine 20 MG Tablet PO (22:26)
[2018-02-12] MEDS: proMETHazine 25 MG/ML Syringe 12.5 MG IV (22:37)
[2018-02-12 22:50] LABS: Bedside Glucose 96 mg/dL (70-110)
[2018-02-13] VITALS (13 sets, daily range): BP systolic 98–118; BP diastolic 44–61; PULSE 62–94; RESP 16–18; TEMP 36.6–37; O2SAT 97–99
[2018-02-13] MEDS: 0.9% Normal Saline 1,000 ML 150 ML IV ×3 (02:34→15:58)
[2018-02-13] MEDS: Levothyroxine 137 MCG Tablet PO (05:27)
[2018-02-13] MEDS: 0.9% NaCl Peripheral Flush Adult/Peds IV ×3 (05:38→19:35)
[2018-02-13 06:08] LABS: AST(SGOT) 13 U/L (15-37); Alanine Aminotransfer ALT/SGPT 22 U/L (13-56); Albumin, Serum 2.7 g/dL (3.2-5.0); Alkaline Phosphatase 113 U/L (45-117); Anion Gap 9 (5-15); BUN 9 mg/dL (7-18); BUN/Creat Ratio 17.9 RATIO (10-20); Calcium,Total 7.5 mg/dL (8.5-10.1); Chloride 111 mmol/L (98-107); EST Glomerular Filtration Rate 128 mL/min (>60); Est Glom Filt Rate - Afr Amer 155 mL/min (>60); Globulin 2.6 g/dL (2.2-4.2); Glucose 72 mg/dL (74-106); Magnesium 1.9 mg/dL (1.6-2.6); Phosphorus 2.7 mg/dL (2.5-4.9); Protein, Total 5.3 g/dL (6.4-8.2); Sodium Level 144 mmol/L (136-145)
[2018-02-13 06:12] LABS: Absolute Lymphocyte Count 1.62 X10^3/ul (0.83-4.51); Absolute Neutrophil Count 17.6 X10^3/uL (2.0-7.7); Basophil# 0.04 X10^3/uL; Basophil% 0.2 % (0-1); Hematocrit 26.5 % (37-47); Hemoglobin 8.9 g/dl (12.0-15.0); Lymphocyte # 1.62 X10^3/ul (4.0); Lymphocyte % 7.7 % (19-41); Mean Corp Hgb Conc 33.6 g/gl (32-36); Mean Corpuscular Hgb 35.3 pg (27.0-32.0); Mean Corpuscular Volume 105.2 fL (81-99); Monocyte# 1.38 X10^3/uL; Monocyte% 6.6 % (0-10); Neutrophil # 17.58 X10^3/uL (2.7-7.7); Neutrophil % 83.8 % (47-70); Platelet Count 152 K/mm3 (150-450); RBC Distribution Width CV 19.3 % (11.6-14.6); RBC Distribution Width SD 70.4 fl (35.1-43.9); Red Blood Count 2.52 M/mm3 (4.2-5.4)
[2018-02-13 06:14] LABS: Differential Indicated SCAN CRITERIA MET; POSITIVE COUNT NO; POSITIVE DIFFERENTIAL NO; POSITIVE MORPHOLOGY YES
[2018-02-13 06:55] LABS: Bedside Glucose 64 mg/dL (70-110)
[2018-02-13] MEDS: Ipratropium/Albuterol Sulfate 3 ML AMPUL.NEB INHALATION ×3 (07:19→21:24)
[2018-02-13 08:32] LABS: Vitamin B12 > 2000 pg/mL (211-911)
[2018-02-13] MEDS: Folic Acid 1 MG Tablet PO (09:11)
[2018-02-13] MEDS: Multivitamins,Ther W-Minerals Tablet 1 TABLET PO (09:11)
[2018-02-13] MEDS: Enoxaparin 40 MG/0.4 ML Syringe SC (09:11)
[2018-02-13] MEDS: Thiamine Hydrochloride 100 MG Tablet PO (09:11)
[2018-02-13] MEDS: Famotidine 20 MG Tablet PO (09:11)
[2018-02-13] MEDS: Diphenoxylate/Atrop 1 Tablet 2 TABLET PO ×2 (10:41→13:43)
--- NOTE | 2018-02-13 10:52 | CASEMGMT ---
Face to Face with patient for initial transition planning/care coordination assessment. RN ALONDRA introduced self and role at [facility], pt voices understanding and consents to assessment at this time. Pt is sitting up in bed in no distress at this time. Pt is A/Ox4 at this time and answers all questions appropriately at this time. Care providers, pharmacy, and demographics verified. See attached link. Pt voices no further concerns/needs at this time. Advised pt to ask for CM if any further questions/concerns/needs arise, voices understanding. CM to follow for any further discharge planning/needs. PLAN: [place] [facility]
[2018-02-13 11:55] LABS: Bedside Glucose 86 mg/dL (70-110)
[2018-02-13] MEDS: Glucerna Shake 120 ML LIQUID PO (13:36)
[2018-02-13] MEDS: Mag Hydrox/Al Hydrox/Simeth 30 ML UDC PO (15:59)
[2018-02-13 16:10] LABS: Bedside Glucose 99 mg/dL (70-110)
--- NOTE | 2018-02-13 16:37 | PCM.PN.HOSP ---
Patient Problems: Active and Suspected Problems (Last Reviewed 02/12/18 @ 11:29 by Didi Chahal) Educational circumstance (Acute) Chemotherapy-induced nausea (Acute) Encounter for monitoring cardiotoxic drug therapy (Acute) Chemotherapy management, encounter for (Acute) Exertional dyspnea (Acute) Chemotherapy management, encounter for (Acute) Diarrhea (Acute) Subjective: f/u for intractable diarrhea, weakness and feeling unwell Had initially been feeling better this morning, however over the last few hours has begun to feel worse with upper abdominal distension, cramping discomfort, nausea and vomiting. States she feels like she is Only abdominal surgery she has ever had was an appendicectomy as a kid Vitals/I&O's: Vital Signs Temp Pulse Resp BP Pulse Ox 97.8 F 73 16 110/48 L 99 02/13/18 15:05 02/13/18 15:09 02/13/18 15:05 02/13/18 15:05 02/13/18 15:05 Oxygen Delivery Method Room Air Weight: 74.2 kg Body Mass Index (BMI) 28.0 Intake and Output for Last 24 Hours 02/11/18 02/12/18 02/13/18 23:59 23:59 23:59 Intake Total 3332 / 3332 2254 / 2254 Balance 3332 / 3332 2254 / 2254 General: Alert, Oriented x3, - - acutely ill looking and in distress and restless as well HEENT: Atraumatic Oral: Dry Mucosa Neck: Supple Lungs: - - non labored Cardiovascular: Regular rate Abdomen: Hyperactive Bowel Sounds, Distended, Obese, - - abdomin distended especailly upper abdomen, tympanitic to percussion, BS are hyperactive, mild tenderness but no guarding diffusely Extremities: No clubbing Skin: No rashes Neurological: Cranial nerves II-XII grossly intact, Neuro grossly intact Psych/Mental Status: Normal Affect, Appropriate, Agitated, Anxious Microbiology Past 72 Hours 02/12/18 15:41 Stool C. difficile DNA Amplification - Final Laboratory Results 02/12/18 20:35: Sodium 142, Potassium 2.3 L*, Chloride 109 H, Carbon Dioxide 23.0, Anion Gap 10, BUN 14, Creatinine 0.67, Estim Creat Clear Calc 45.20, Est GFR (MDRD) Af Amer 111, Est GFR (MDRD) Non-Af 92, BUN/Creatinine Ratio 20.8 H, Glucose 88, Calcium 7.5 L 02/12/18 22:26: POC Glucose 96 02/13/18 05:35: WBC 21.0 H, RBC 2.52 L, Hgb 8.9 L, Hct 26.5 L, MCV 105.2 H, MCH 35.3 H, MCHC 33.6, RDW 19.3 H, RDW Differential 70.4 H, Plt Count 152, MPV 10.0, Immature Gran % (Auto) 1.700 H, Neut % (Auto) 83.8 H, Lymph % (Auto) 7.7 L, Aiken % (Auto) 6.6, Eos % (Auto) 0.0, Baso % (Auto) 0.2, Absolute Neuts (auto) 17.6 H, Absolute Lymphs (auto) 1.62, Total Counted Not Reportable 02/13/18 05:35: Sodium 144, Potassium 3.0 L, Chloride 111 H, Carbon Dioxide 24.0, Anion Gap 9, BUN 9, Creatinine 0.50 L, Estim Creat Clear Calc 45.20, Est GFR (MDRD) Af Amer 155, Est GFR (MDRD) Non-Af 128, BUN/Creatinine Ratio 17.9, Glucose 72 L, Calcium 7.5 L, Phosphorus 2.7, Magnesium 1.9, Total Bilirubin 0.30, AST 13 L, ALT 22, Alkaline Phosphatase 113, Total Protein 5.3 L, Albumin 2.7 L, Globulin 2.6, Albumin/Globulin Ratio 1.0 02/13/18 06:46: POC Glucose 64 L 02/13/18 11:47: POC Glucose 86 02/13/18 16:00: POC Glucose 99 Current Medications Al Hydroxide/Mg Hydroxide (Mylanta Ii) 30 ml PO Q4H PRN PRN PRN Reason: INDIGESTION Last Admin: 02/13/18 15:59 Dose: 30 ml Albuterol Sulfate (Ventolin Aerosols) 2.5 mg INHALATION Q2H PRN PRN PRN Reason: dyspnea, wheezing Albuterol/Ipratropium (Duoneb) 3 ml INHALATION Q6HWA.RT LAVON Last Admin: 02/13/18 13:28 Dose: 3 ml Enoxaparin Sodium (Lovenox) 40 mg SC DAILY@1000 LAVON Last Admin: 02/13/18 09:11 Dose: 40 mg Insulin Human Lispro (Humalog Kwikpen (Bkc)) 0 unit SC ACHS [facility] PRN Reason: Protocol Last Admin: 02/13/18 16:01 Dose: Not Given Labetalol HCl (Trandate) 10 mg IV Q4H PRN PRN PRN Reason: SBP > 160, hold for HR < 60 Levothyroxine Sodium (Synthroid) 137 mcg PO DAILY@0600 [facility] Last Admin: 02/13/18 05:27 Dose: 137 mcg Morphine Sulfate () 1 - 2 mg IV Q4H PRN PRN PRN Reason: PAIN Nicotine (Nicoderm Cq (Pbkc)) 7 mg TRANSDERM. DAILY PRN PRN Reason: Nicotine Craving Ondansetron HCl (Zofran) 4 mg IV Q8H PRN PRN PRN Reason: NAUSEA Last Admin: 02/12/18 20:14 Dose: 4 mg Promethazine HCl (Phenergan) 12.5 mg IV Q6H PRN PRN PRN Reason: NAUSEA/VOMITING Last Admin: 02/12/18 22:37 Dose: 12.5 mg Sodium Chloride () 5 - 30 ml IV UD PRN PRN Reason: SALINE FLUSH Last Admin: 02/13/18 05:39 Dose: 10 ml Temazepam (Restoril) 15 mg PO QHS PRN PRN PRN Reason: insomnia Thiamine HCl (Vitamin B1) 100 mg PO DAILYCM [facility] Last Admin: 02/13/18 09:11 Dose: 100 mg Medical Necessity - Tobacco Use Smoking Status: Current every day smoker Tobacco Use: Cigarettes Assessment/Plan All Active Problems (Last Reviewed 02/12/18 @ 11:29 by Didi Chahal) Encounter for insertion of venous access port (Acute) Educational circumstance (Acute) Chemotherapy-induced nausea (Acute) Encounter for monitoring cardiotoxic drug therapy (Acute) Chemotherapy management, encounter for (Acute) Exertional dyspnea (Acute) Sore throat (Resolved) Perineal pain (Resolved) Chemotherapy management, encounter for (Acute) Diarrhea (Acute) 1. Intractable diarrhea. Suspected to be secondary to side-effects of chemotherapy or some other infectious gastroenteritis. C. diff testing x 2 has been negative. 2. Suspected small bowel obstruction. Uncertain of the cause but will need to consider ileus from hypokalemia and antidiarrheals. Will stop all antidiarrheals, keep NPO, maintain on IV fluids. KUB stat. Consult general surgery if required. 3. 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 Leukocytosis. Was recently treated with Neulasta. Will monitor for now._ Code Visit Inpatient E&M: 62324 Subs Hosp L3
--- NOTE | 2018-02-13 16:41 | PN_ITS ---
Patient Problems: Active and Suspected Problems (Last Reviewed 02/12/18 @ 11:29 by Didi Chahal) Educational circumstance (Acute) Chemotherapy-induced nausea (Acute) Encounter for monitoring cardiotoxic drug therapy (Acute) Chemotherapy management, encounter for (Acute) Exertional dyspnea (Acute) Chemotherapy management, encounter for (Acute) Diarrhea (Acute) Subjective: f/u for intractable diarrhea, weakness and feeling unwell Had initially been feeling better this morning, however over the last few hours has begun to feel worse with upper abdominal distension, cramping discomfort, nausea and vomiting. States she feels like she is Only abdominal surgery she has ever had was an appendicectomy as a kid Vitals/I&O's: Vital Signs Temp Pulse Resp BP Pulse Ox 97.8 F 73 16 110/48 L 99 02/13/18 15:05 02/13/18 15:09 02/13/18 15:05 02/13/18 15:05 02/13/18 15:05 Oxygen Delivery Method Room Air Weight: 74.2 kg Body Mass Index (BMI) 28.0 Intake and Output for Last 24 Hours 02/11/18 02/12/18 02/13/18 23:59 23:59 23:59 Intake Total 3332 / 3332 2254 / 2254 Balance 3332 / 3332 2254 / 2254 General: Alert, Oriented x3, - - acutely ill looking and in distress and restless as well HEENT: Atraumatic Oral: Dry Mucosa Neck: Supple Lungs: - - non labored Cardiovascular: Regular rate Abdomen: Hyperactive Bowel Sounds, Distended, Obese, - - abdomin distended especailly upper abdomen, tympanitic to percussion, BS are hyperactive, mild tenderness but no guarding diffusely Extremities: No clubbing Skin: No rashes Neurological: Cranial nerves II-XII grossly intact, Neuro grossly intact Psych/Mental Status: Normal Affect, Appropriate, Agitated, Anxious Microbiology Past 72 Hours 02/12/18 15:41 Stool C. difficile DNA Amplification - Final Laboratory Results 02/12/18 20:35: Sodium 142, Potassium 2.3 L*, Chloride 109 H, Carbon Dioxide 23.0, Anion Gap 10, BUN 14, Creatinine 0.67, Estim Creat Clear Calc 45.20, Est GFR (MDRD) Af Amer 111, Est GFR (MDRD) Non-Af 92, BUN/Creatinine Ratio 20.8 H, Glucose 88, Calcium 7.5 L 02/12/18 22:26: POC Glucose 96 02/13/18 05:35: WBC 21.0 H, RBC 2.52 L, Hgb 8.9 L, Hct 26.5 L, MCV 105.2 H, MCH 35.3 H, MCHC 33.6, RDW 19.3 H, RDW Differential 70.4 H, Plt Count 152, MPV 10.0 , Immature Gran % (Auto) 1.700 H, Neut % (Auto) 83.8 H, Lymph % (Auto) 7.7 L, Dougherty % (Auto) 6.6, Eos % (Auto) 0.0, Baso % (Auto) 0.2, Absolute Neuts (auto) 17.6 H, Absolute Lymphs (auto) 1.62, Total Counted Not Reportable 02/13/18 05:35: Sodium 144, Potassium 3.0 L, Chloride 111 H, Carbon Dioxide 24.0 , Anion Gap 9, BUN 9, Creatinine 0.50 L, Estim Creat Clear Calc 45.20, Est GFR ( MDRD) Af Amer 155, Est GFR (MDRD) Non-Af 128, BUN/Creatinine Ratio 17.9, Glucose 72 L, Calcium 7.5 L, Phosphorus 2.7, Magnesium 1.9, Total Bilirubin 0.30 , AST 13 L, ALT 22, Alkaline Phosphatase 113, Total Protein 5.3 L, Albumin 2.7 L , Globulin 2.6, Albumin/Globulin Ratio 1.0 02/13/18 06:46: POC Glucose 64 L 02/13/18 11:47: POC Glucose 86 02/13/18 16:00: POC Glucose 99 Current Medications Al Hydroxide/Mg Hydroxide (Mylanta Ii) 30 ml PO Q4H PRN PRN PRN Reason: INDIGESTION Last Admin: 02/13/18 15:59 Dose: 30 ml Albuterol Sulfate (Ventolin Aerosols) 2.5 mg INHALATION Q2H PRN PRN PRN Reason: dyspnea, wheezing Albuterol/Ipratropium (Duoneb) 3 ml INHALATION Q6HWA.RT LAVON Last Admin: 02/13/18 13:28 Dose: 3 ml Enoxaparin Sodium (Lovenox) 40 mg SC DAILY@1000 [facility] Last Admin: 02/13/18 09:11 Dose: 40 mg Insulin Human Lispro (Humalog Kwikpen (Bkc)) 0 unit SC ACHS [facility] PRN Reason: Protocol Last Admin: 02/13/18 16:01 Dose: Not Given Labetalol HCl (Trandate) 10 mg IV Q4H PRN PRN PRN Reason: SBP > 160, hold for HR < 60 Levothyroxine Sodium (Synthroid) 137 mcg PO DAILY@0600 [facility] Last Admin: 02/13/18 05:27 Dose: 137 mcg Morphine Sulfate () 1 - 2 mg IV Q4H PRN PRN PRN Reason: PAIN Nicotine (Nicoderm Cq (Pbkc)) 7 mg TRANSDERM. DAILY PRN PRN Reason: Nicotine Craving Ondansetron HCl (Zofran) 4 mg IV Q8H PRN PRN PRN Reason: NAUSEA Last Admin: 02/12/18 20:14 Dose: 4 mg Promethazine HCl (Phenergan) 12.5 mg IV Q6H PRN PRN PRN Reason: NAUSEA/VOMITING Last Admin: 02/12/18 22:37 Dose: 12.5 mg Sodium Chloride () 5 - 30 ml IV UD PRN PRN Reason: SALINE FLUSH Last Admin: 02/13/18 05:39 Dose: 10 ml Temazepam (Restoril) 15 mg PO QHS PRN PRN PRN Reason: insomnia Thiamine HCl (Vitamin B1) 100 mg PO DAILYCM [facility] Last Admin: 02/13/18 09:11 Dose: 100 mg Medical Necessity - Tobacco Use Smoking Status: Current every day smoker Tobacco Use: Cigarettes Assessment/Plan All Active Problems (Last Reviewed 02/12/18 @ 11:29 by Didi Chahal) Encounter for insertion of venous access port (Acute) Educational circumstance (Acute) Chemotherapy-induced nausea (Acute) Encounter for monitoring cardiotoxic drug therapy (Acute) Chemotherapy management, encounter for (Acute) Exertional dyspnea (Acute) Sore throat (Resolved) Perineal pain (Resolved) Chemotherapy management, encounter for (Acute) Diarrhea (Acute) 1. Intractable diarrhea. Suspected to be secondary to side-effects of chemotherapy or some other infectious gastroenteritis. C. diff testing x 2 has been negative. 2. Suspected small bowel obstruction. Uncertain of the cause but will need to consider ileus from hypokalemia and antidiarrheals. Will stop all antidiarrheals , keep NPO, maintain on IV fluids. KUB stat. Consult general surgery if required. 3. 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 Leukocytosis. Was recently treated with Neulasta. Will monitor for now._ Code Visit Inpatient E&M: 68886 Subs Hosp L3
--- NOTE | 2018-02-13 17:20 | RAD_ITS ---
STUDY: X-RAY - ABDOMEN/PELVIS REASON FOR EXAM: Female, 72 years old. Distention. Pain and vomiting. Breast cancer. TECHNIQUE: AP supine and upright views of the abdomen and pelvis. COMPARISON: None. FINDINGS: Normal visualized lung bases. Abnormal bowel gas pattern showing numerous distended loops of mostly large bowel , with numerous air-fluid levels. There is relatively decreased distal bowel gas. Findings are suggestive of severe ileus or bowel obstruction. There is no demonstrated free abdominal air. The visualized liver, spleen and kidneys are grossly normal in size and morphology. Normal soft tissue structures. Normal visualized osseous structures. RAD/Abd Inc Decub and/or Erect IMPRESSION: Abnormal bowel gas pattern suggestive of severe ileus or obstruction. Electronically Signed: Afshin Luong MD at 17:50 EDT , Service support ,
[2018-02-13 17:45] LABS: Anion Gap 9 (5-15); BUN 6 mg/dL (7-18); BUN/Creat Ratio 10.2 RATIO (10-20); Calcium,Total 7.7 mg/dL (8.5-10.1); Chloride 110 mmol/L (98-107); Creatinine, Serum 0.59 mg/dL (0.55-1.02); EST Glomerular Filtration Rate 108 mL/min (>60); Est Glom Filt Rate - Afr Amer 130 mL/min (>60); Glucose 86 mg/dL (74-106); Potassium 2.7 mmol/L (3.5-5.1); Sodium Level 141 mmol/L (136-145)
--- NOTE | 2018-02-13 18:14 | CT_ITS ---
STUDY: CT ABDOMEN AND PELVIS WITHOUT CONTRAST REASON FOR EXAM: Female, 72 years old. Pain. Bowel obstruction. Breast cancer chemotherapy. RADIATION DOSAGE (If Supplied By Facility): CTDIvol = ( 15.25 ) mGy, DLP = ( 739.02 ) mGycm TECHNIQUE: Transaxial images were obtained from the dome of the diaphragm to the symphysis pubis without oral contrast, and without intravenous contrast. Sagittal and coronal images were reconstructed. Individualized dose optimization techniques were used for this CT. COMPARISON: None. FINDINGS: Limited views through the lower chest show thickening of the lower extent of the right major fissure, and some pleural-parenchymal scarring in the posterior lower left hemithorax. Normal liver. Normal gallbladder and extrahepatic biliary system. Normal spleen. Normal pancreas. Normal bilateral adrenal glands. Normal right kidney. Normal left kidney. Evaluation of the GI tract is limited without oral contrast. There is moderate fluid-filled distention of the stomach. There are numerous loops of fluid-filled distended small bowel all the way to the terminal ileum, and there is fluid distention of the cecum with what appears to be thickening of the cecal wall and pericolonic stranding. A specific obstruction is not seen, but cannot exclude inflammatory or neoplastic process in the cecum. Colonoscopy is recommended. There is diffuse atherosclerotic calcification of the abdominal aorta, without a demonstrated aneurysm. Normal inferior vena cava. Normal retroperitoneum. Normal urinary bladder. There is atrophy of the uterus. There is a left-sided inguinal hernia containing adipose tissue. There are diffuse degenerative changes of the visualized lumbar spine. CT/Abdomen/Pelvis without Cont IMPRESSION: Evaluation of the GI tract is limited without oral contrast but there is clearly fluid-filled distention of the stomach and entire small bowel and an abnormal appearance of the cecum. Question inflammatory or neoplastic process of the cecum. Colonoscopy is recommended. Electronically Signed: Afshin Luong MD at 19:19 EDT , Service support ,
--- NOTE | 2018-02-13 19:07 | CON.PCM_ITS ---
Problem List (1) Nausea vomiting and diarrhea Status: Acute Comment: r11.2 Reason for Consult Date of Consultation: 02/13/18 History of Present Illness: Ms. Berenice Larose is a very pleasant 72-year-old woman with a PMH for COPD, tobacco use and hypothyroidism, diagnosed with invasive ductal carcinoma, stage IIB on 08/22/17. 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 No other evidence to suggest distant metastatic disease. Thus, she began neoadjuvant, HER2 targeted therapy with Taxotere/Cytoxan/Perjeta/ Herceptin on 11/10/17. Has tolerated fair with the exception of fatigue, nausea- typically well controlled with PO antiemetics and diarrhea-again typically well controlled with supportive medications. She received cycle 5 on 02/03/18, supported with G-CSF on day 2. Developed vomiting and diarrhea on 02/08/18. Was evaluated in the ambulatory clinic setting, supported with IV hydration. Stool for Cdiff was found to be negative at that time, however diarrhea persisted. Found to exhibit severe hypokalemia, taken to [facility] ED and subsequently admitted for management of hypokalemia and diarrhea. She has continued to pass flatus and was feeling better but then this afternoon started to develop increasing abdominal pain and crampiness. X-ray shows severe ileus versus obstruction and a CAT scan is being ordered and being done at the time that I am seeing the patient. Past Medical History Past Medical History (Chronic Problems): Chronic Problems (Last Reviewed 02/13/18 @ 19:06 by Killian Duke MD) Breast cancer, right breast (Chronic) Asthma with COPD (Chronic) Tobacco use (Chronic) History of alcohol abuse (Chronic) Prediabetes (Chronic) Hypothyroidism (acquired) (Chronic) Medical History: Medical History (Last Reviewed 02/13/18 @ 19:06 by Killian Duke MD) Fracture, skull S02.91XA Abnormal breast biopsy R89.7 right breast 08/19/17 Asthma J45.909 Breast cancer C50.919 History of elevated glucose Z86.39 pre-diabetic Hyperthyroidism E05.90 port placement 10-28-17 Allergies No Known Allergies Allergy (Verified 02/12/18 12:19) Home Medications: Ambulatory Orders Medication Instructions Recorded Albuterol Aerosols [Ventolin 1 puff INHALATION DAILY 10/21/17 Aerosols] Albuterol Inhaler [Ventolin Hfa] 1 puff INHALATION DAILY 10/21/17 Fluticasone/Vilanterol [Breo 1 puff INHALATION QODAY 10/21/17 Ellipta 200-25 Mcg INH] Levothyroxine [Synthroid] 137 mcg PO DAILY 10/21/17 Metformin HCl [Metformin HCl ER] 500 mg PO DAILY 10/21/17 Dexamethasone [Decadron] 8 mg PO BID 63 Days #36 tab 10/30/17 Lidocaine/Prilocaine 30 gm TP DAILY PRN PRN 30 Days #1 10/30/17 [Lidocaine-Prilocaine Cream] cream..g. Ondansetron HCl [Zofran] 4 mg PO Q8H PRN PRN 10 Days #30 tab 10/30/17 Surgical History: Surgical History (Last Reviewed 02/13/18 @ 19:06 by Killian Duke MD) H/O toe surgery Z98.890 cyst removed History of appendectomy Z90.49 History of back surgery Z98.890 Surgical History: - - Lumbar back surgery, left great toe surgery, port placement, appendectomy, possible intervention for fracture school as , right breast node ?2 and lymph node biopsies. 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 Smoking Status: Current every day smoker Tobacco Use: Cigarettes Alcohol: Sober - Patient has been sober since October 2017 but prior to this drink at least 4 beers per day. Drugs: None - *Family History Maternal Family History: Family History (Last Reviewed 02/12/18 @ 11:29 by Didi Chahal) Brother Cancer Father Lung cancer Aunt Cancer History Items: - - Patient notes a maternal family history of heart disease including heart failure in addition to pulmonary ongoing issues during her lifetime with history of premature . Paternal Family History: Family History (Last Reviewed 02/12/18 @ 11:29 by Didi Chahal) Brother Cancer Father Lung cancer Aunt Cancer History Items: - - She notes a paternal family history of lung cancer but is unclear the type and states that it was outside the lung but progressed into the lung. Review of Systems Constitutional: Reports: Weakness, Fatigue Cardiovascular: Denies: Chest Pain, Chest Pressure, Chest Tightness, Palpitations Respiratory: Denies: Cough, Hemoptysis, Shortness of breath at rest, Shortness of breath upon exertion, Wheezing Gastrointestinal: Reports: Abdominal Pain, Diarrhea, Nausea, Vomiting - Patient states she feels like she is . Musculoskeletal: Denies: Joint Pain Skin: Denies: Lesions, Rash, Wounds Neurological: Denies: Change in Speech, Confusion, Numbness, Tingling, Seizures Patient Problems: Active and Suspected Problems (Last Reviewed 02/13/18 @ 19:06 by Killian Duke MD) Educational circumstance (Acute) Chemotherapy-induced nausea (Acute) Encounter for monitoring cardiotoxic drug therapy (Acute) Chemotherapy management, encounter for (Acute) Exertional dyspnea (Acute) Chemotherapy management, encounter for (Acute) Diarrhea (Acute) Nausea vomiting and diarrhea (Acute) r11.2 - Physical Exam General: Alert, Oriented x3 Lungs: Clear to auscultation Cardiovascular: Regular rate, Regular Rhythm, No murmurs Abdomen: Distended - Patient does not appear to have any signs of rebound guarding or peritoneal signs. She is very tympanitic. Extremities: No clubbing, No cyanosis, No edema Skin: No rashes, No breakdown Vital Signs Temp Pulse Resp BP Pulse Ox 97.8 F 73 16 110/48 L 99 02/13/18 15:05 02/13/18 15:09 02/13/18 15:05 02/13/18 15:05 02/13/18 15:05 Oxygen Delivery Method Room Air Weight: 163 lb 9.328 oz Body Mass Index (BMI) 28.0 Intake and Output for Last 24 Hours 02/11/18 02/12/18 02/13/18 23:59 23:59 23:59 Intake Total 3332 / 3332 3336 / 3336 Output Total 150 / 150 Balance 3332 / 3332 3186 / 3186 Microbiology Past 72 Hours 02/12/18 15:41 Enteric Bacteriology - Final Stool 02/12/18 15:41 C. difficile DNA Amplification - Final Stool Laboratory Tests Past 24 Hrs 02/12/18 02/13/18 02/13/18 20:35 05:35 05:35 WBC 21.0 H RBC 2.52 L Hgb 8.9 L Hct 26.5 L MCV 105.2 H MCH 35.3 H MCHC 33.6 RDW 19.3 H RDW Differential 70.4 H Plt Count 152 MPV 10.0 Immature Gran % (Auto) 1.700 H Neut % (Auto) 83.8 H Lymph % (Auto) 7.7 L Stevens % (Auto) 6.6 Eos % (Auto) 0.0 Baso % (Auto) 0.2 Absolute Neuts (auto) 17.6 H Absolute Lymphs (auto) 1.62 Total Counted Not Reportable Sodium 142 144 Potassium 2.3 L* 3.0 L Chloride 109 H 111 H Carbon Dioxide 23.0 24.0 Anion Gap 10 9 BUN 14 9 Creatinine 0.67 0.50 L Estim Creat Clear Calc 45.20 45.20 Est GFR (MDRD) Af Amer 111 155 Est GFR (MDRD) Non-Af 92 128 BUN/Creatinine Ratio 20.8 H 17.9 Glucose 88 72 L Calcium 7.5 L 7.5 L Phosphorus 2.7 Magnesium 1.9 Total Bilirubin 0.30 AST 13 L ALT 22 Alkaline Phosphatase 113 Total Protein 5.3 L Albumin 2.7 L Globulin 2.6 Albumin/Globulin Ratio 1.0 02/13/18 17:14 WBC RBC Hgb Hct MCV MCH MCHC RDW RDW Differential Plt Count MPV Immature Gran % (Auto) Neut % (Auto) Lymph % (Auto) Stevens % (Auto) Eos % (Auto) Baso % (Auto) Absolute Neuts (auto) Absolute Lymphs (auto) Total Counted Sodium 141 Potassium 2.7 L* Chloride 110 H Carbon Dioxide 22.0 Anion Gap 9 BUN 6 L Creatinine 0.59 Estim Creat Clear Calc 45.20 Est GFR (MDRD) Af Amer 130 Est GFR (MDRD) Non-Af 108 BUN/Creatinine Ratio 10.2 Glucose 86 Calcium 7.7 L Phosphorus Magnesium Total Bilirubin AST ALT Alkaline Phosphatase Total Protein Albumin Globulin Albumin/Globulin Ratio POC Glucose 02/13/18 02/13/18 02/13/18 16:00 11:47 06:46 POC Glucose 99 86 64 L 02/12/18 22:26 POC Glucose 96 Assessment/Plan All Active Problems (Last Reviewed 02/13/18 @ 19:06 by Killian Duke MD) Encounter for insertion of venous access port (Acute) Educational circumstance (Acute) Chemotherapy-induced nausea (Acute) Encounter for monitoring cardiotoxic drug therapy (Acute) Chemotherapy management, encounter for (Acute) Exertional dyspnea (Acute) Sore throat (Resolved) Perineal pain (Resolved) Chemotherapy management, encounter for (Acute) Diarrhea (Acute) Nausea vomiting and diarrhea (Acute) I have reviewed the CAT scan with the final report is not in I do not see an obvious transition point and she is not striking me as somebody who is acutely obstructed but rather has a significant ileus. I would recommend ambulating this patient avoiding an NG tube unless she vomits again and replace her electrolytes appropriately. At the present time I have no surgical interventions planned for her.
[2018-02-13 22:20] LABS: Bedside Glucose 104 mg/dL (70-110)
[2018-02-14] VITALS (16 sets, daily range): BP systolic 102–129; BP diastolic 45–68; PULSE 61–109; RESP 16–18; TEMP 36.3–36.9; O2SAT 95–98
[2018-02-14] MEDS: 0.9% NaCl Peripheral Flush Adult/Peds IV ×2 (06:03→12:49)
[2018-02-14 06:14] LABS: Absolute Lymphocyte Count 1.22 X10^3/ul (0.83-4.51); Absolute Neutrophil Count 15.8 X10^3/uL (2.0-7.7); Basophil# 0.01 X10^3/uL; Basophil% 0.1 % (0-1); Hematocrit 25.7 % (37-47); Hemoglobin 8.4 g/dl (12.0-15.0); Lymphocyte # 1.22 X10^3/ul (4.0); Lymphocyte % 6.8 % (19-41); Mean Corp Hgb Conc 32.7 g/gl (32-36); Mean Platelet Vol. 9.8 fl (6.2-12.0); Monocyte# 0.87 X10^3/uL; Monocyte% 4.8 % (0-10); Neutrophil # 15.77 X10^3/uL (2.7-7.7); Neutrophil % 87.5 % (47-70); Platelet Count 150 K/mm3 (150-450); RBC Distribution Width CV 20.3 % (11.6-14.6); RBC Distribution Width SD 75.9 fl (35.1-43.9); Red Blood Count 2.47 M/mm3 (4.2-5.4)
[2018-02-14 06:15] LABS: Differential Indicated SCAN CRITERIA MET; POSITIVE COUNT NO; POSITIVE DIFFERENTIAL NO; POSITIVE MORPHOLOGY YES
[2018-02-14 06:29] LABS: ALB/GLOB Ratio 0.9 RATIO (0.9-2.4); AST(SGOT) 19 U/L (15-37); Alanine Aminotransfer ALT/SGPT 21 U/L (13-56); Albumin, Serum 2.5 g/dL (3.2-5.0); Alkaline Phosphatase 123 U/L (45-117); Anion Gap 7 (5-15); BUN 4 mg/dL (7-18); BUN/Creat Ratio 8.5 RATIO (10-20); Calcium,Total 7.3 mg/dL (8.5-10.1); Chloride 111 mmol/L (98-107); Creatinine, Serum 0.47 mg/dL (0.55-1.02); EST Glomerular Filtration Rate 140 mL/min (>60); Est Glom Filt Rate - Afr Amer 169 mL/min (>60); Globulin 2.8 g/dL (2.2-4.2); Glucose 76 mg/dL (74-106); Potassium 3.2 mmol/L (3.5-5.1); Protein, Total 5.3 g/dL (6.4-8.2); Sodium Level 142 mmol/L (136-145)
[2018-02-14] MEDS: Levothyroxine 137 MCG Tablet PO (06:32)
[2018-02-14 06:45] LABS: Bedside Glucose 80 mg/dL (70-110)
[2018-02-14 06:53] LABS: Anisocytosis 1+; Differential Comment SCAN; Macrocytosis 1+; Polychromasia 1+
--- NOTE | 2018-02-14 07:28 | PCM.PN.SRG ---
Patient Problems: Active and Suspected Problems (Last Reviewed 02/13/18 @ 19:06 by Killian Duke MD) Educational circumstance (Acute) Chemotherapy-induced nausea (Acute) Encounter for monitoring cardiotoxic drug therapy (Acute) Chemotherapy management, encounter for (Acute) Exertional dyspnea (Acute) Chemotherapy management, encounter for (Acute) Diarrhea (Acute) Nausea vomiting and diarrhea (Acute) r11.2 Subjective: Patient states that she feels much softer. She is having flatus and diarrhea. Objective: Abdomen is soft nontender slightly distended no rebound guarding or peritoneal signs - Physical Exam Vital Signs Temp Pulse Resp BP Pulse Ox 97.4 F L 74 16 112/59 L 96 02/14/18 03:05 02/14/18 03:05 02/14/18 03:05 02/14/18 03:05 02/14/18 03:05 Oxygen Delivery Method Room Air Weight: 163 lb 9.328 oz Body Mass Index (BMI) 28.0 Intake and Output for Last 24 Hours 02/12/18 02/13/18 02/14/18 23:59 23:59 23:59 Intake Total 3332 / 3332 3563 / 3563 200 / 200 Output Total 150 / 150 Balance 3332 / 3332 3413 / 3413 200 / 200 Microbiology Past 72 Hours 02/12/18 15:41 Enteric Bacteriology - Final Stool 02/12/18 15:41 C. difficile DNA Amplification - Final Stool Laboratory Tests Past 24 Hrs 02/13/18 02/14/18 02/14/18 17:14 06:00 06:00 WBC 18.0 H RBC 2.47 L Hgb 8.4 L Hct 25.7 L MCV 104.0 H MCH 34.0 H MCHC 32.7 RDW 20.3 H RDW Differential 75.9 H Plt Count 150 MPV 9.8 Immature Gran % (Auto) 0.800 Neut % (Auto) 87.5 H Lymph % (Auto) 6.8 L [place] % (Auto) 4.8 Eos % (Auto) 0.0 Baso % (Auto) 0.1 Absolute Neuts (auto) 15.8 H Absolute Lymphs (auto) 1.22 Total Counted Not Reportable Differential Comment SCAN Polychromasia 1+ Anisocytosis 1+ Macrocytosis 1+ Sodium 141 142 Potassium 2.7 L* 3.2 L Chloride 110 H 111 H Carbon Dioxide 22.0 24.0 Anion Gap 9 7 BUN 6 L 4 L Creatinine 0.59 0.47 L Estim Creat Clear Calc 45.20 45.20 Est GFR (MDRD) Af Amer 130 169 Est GFR (MDRD) Non-Af 108 140 BUN/Creatinine Ratio 10.2 8.5 L Glucose 86 76 Calcium 7.7 L 7.3 L Total Bilirubin 0.30 AST 19 ALT 21 Alkaline Phosphatase 123 H Total Protein 5.3 L Albumin 2.5 L Globulin 2.8 Albumin/Globulin Ratio 0.9 POC Glucose 02/14/18 02/13/18 02/13/18 06:35 22:04 16:00 POC Glucose 80 104 99 02/13/18 11:47 POC Glucose 86 Medical Necessity - Tobacco Use Smoking Status: Current every day smoker Tobacco Use: Cigarettes Assessment/Plan All Active Problems (Last Reviewed 02/13/18 @ 19:06 by Killian Duke MD) Encounter for insertion of venous access port (Acute) Educational circumstance (Acute) Chemotherapy-induced nausea (Acute) Encounter for monitoring cardiotoxic drug therapy (Acute) Chemotherapy management, encounter for (Acute) Exertional dyspnea (Acute) Sore throat (Resolved) Perineal pain (Resolved) Chemotherapy management, encounter for (Acute) Diarrhea (Acute) Nausea vomiting and diarrhea (Acute) Patient ileus is resolving. Okay to start diet
[2018-02-14] MEDS: Ipratropium/Albuterol Sulfate 3 ML AMPUL.NEB INHALATION ×3 (07:37→18:56)
[2018-02-14] MEDS: Enoxaparin 40 MG/0.4 ML Syringe SC (09:00)
[2018-02-14] MEDS: Thiamine Hydrochloride 100 MG Tablet PO (09:00)
[2018-02-14 10:46] LABS: Bedside Glucose 73 mg/dL (70-110)
[2018-02-14 15:36] LABS: Bedside Glucose 69 mg/dL (70-110)
[2018-02-14 15:36] LABS: Bedside Glucose 71 mg/dL (70-110)
--- NOTE | 2018-02-14 19:21 | PCM.PN.HOSP ---
Patient Problems: Active and Suspected Problems (Last Reviewed 02/13/18 @ 19:06 by Killian Duke MD) Educational circumstance (Acute) Chemotherapy-induced nausea (Acute) Encounter for monitoring cardiotoxic drug therapy (Acute) Chemotherapy management, encounter for (Acute) Exertional dyspnea (Acute) Chemotherapy management, encounter for (Acute) Diarrhea (Acute) Nausea vomiting and diarrhea (Acute) r11.2 Subjective: f/u for enteritis Feeling better Vitals/I&O's: Vital Signs Temp Pulse Resp BP Pulse Ox 97.5 F L 84 18 129/68 H 95 02/14/18 17:38 02/14/18 17:38 02/14/18 17:38 02/14/18 17:38 02/14/18 17:38 Oxygen Delivery Method Room Air Weight: 74.2 kg Body Mass Index (BMI) 28.0 Intake and Output for Last 24 Hours 02/12/18 02/13/18 02/14/18 23:59 23:59 23:59 Intake Total 3332 / 3332 3563 / 3563 1383 / 1383 Output Total 150 / 150 Balance 3332 / 3332 3413 / 3413 1383 / 1383 General: Alert, Oriented x3, Cooperative HEENT: Atraumatic Oral: Moist Mucosa Neck: Supple Lungs: - - non labored Abdomen: Obese, - - less distended Neurological: Cranial nerves II-XII grossly intact, Neuro grossly intact Psych/Mental Status: Normal Affect, Appropriate Microbiology Past 72 Hours 02/12/18 15:41 Stool Enteric Bacteriology - Final 02/12/18 15:41 Stool C. difficile DNA Amplification - Final Laboratory Results 02/13/18 22:04: POC Glucose 104 02/14/18 06:00: WBC 18.0 H, RBC 2.47 L, Hgb 8.4 L, Hct 25.7 L, MCV 104.0 H, MCH 34.0 H, MCHC 32.7, RDW 20.3 H, RDW Differential 75.9 H, Plt Count 150, MPV 9.8, Immature Gran % (Auto) 0.800, Neut % (Auto) 87.5 H, Lymph % (Auto) 6.8 L, [place] % (Auto) 4.8, Eos % (Auto) 0.0, Baso % (Auto) 0.1, Absolute Neuts (auto) 15.8 H, Absolute Lymphs (auto) 1.22, Total Counted Not Reportable, Differential Comment SCAN, Polychromasia 1+, Anisocytosis 1+, Macrocytosis 1+ 02/14/18 06:00: Sodium 142, Potassium 3.2 L, Chloride 111 H, Carbon Dioxide 24.0, Anion Gap 7, BUN 4 L, Creatinine 0.47 L, Estim Creat Clear Calc 45.20, Est GFR (MDRD) Af Amer 169, Est GFR (MDRD) Non-Af 140, BUN/Creatinine Ratio 8.5 L, Glucose 76, Calcium 7.3 L, Total Bilirubin 0.30, AST 19, ALT 21, Alkaline Phosphatase 123 H, Total Protein 5.3 L, Albumin 2.5 L, Globulin 2.8, Albumin/Globulin Ratio 0.9 02/14/18 06:35: POC Glucose 80 02/14/18 10:42: POC Glucose 73 02/14/18 14:33: POC Glucose 69 L 02/14/18 15:19: POC Glucose 71 Current Medications Al Hydroxide/Mg Hydroxide (Mylanta Ii) 30 ml PO Q4H PRN PRN PRN Reason: INDIGESTION Last Admin: 02/13/18 15:59 Dose: 30 ml Albuterol Sulfate (Ventolin Aerosols) 2.5 mg INHALATION Q2H PRN PRN PRN Reason: dyspnea, wheezing Albuterol/Ipratropium (Duoneb) 3 ml INHALATION Q6HWA.RT [facility] Last Admin: 02/14/18 18:56 Dose: 3 ml Enoxaparin Sodium (Lovenox) 40 mg SC DAILY@1000 [facility] Last Admin: 02/14/18 09:00 Dose: 40 mg Insulin Human Lispro (Humalog Kwikpen (Bkc)) 0 unit SC ACHS [facility] PRN Reason: Protocol Last Admin: 02/14/18 15:57 Dose: Not Given Labetalol HCl (Trandate) 10 mg IV Q4H PRN PRN PRN Reason: SBP > 160, hold for HR < 60 Levothyroxine Sodium (Synthroid) 137 mcg PO DAILY@0600 [facility] Last Admin: 02/14/18 06:32 Dose: 137 mcg Morphine Sulfate () 1 - 2 mg IV Q4H PRN PRN PRN Reason: PAIN Nicotine (Nicoderm Cq (Pbkc)) 7 mg TRANSDERM. DAILY PRN PRN Reason: Nicotine Craving Ondansetron HCl (Zofran) 4 mg IV Q8H PRN PRN PRN Reason: NAUSEA Last Admin: 02/12/18 20:14 Dose: 4 mg Potassium Bicarb/Potassium Chloride (Potassium Chl 25 Meq Eff (For Liquid)) 50 meq PO BIDCM [facility] Stop: 02/16/18 08:01 Last Admin: 02/14/18 16:04 Dose: 50 meq Promethazine HCl (Phenergan) 12.5 mg IV Q6H PRN PRN PRN Reason: NAUSEA/VOMITING Last Admin: 02/12/18 22:37 Dose: 12.5 mg Sodium Chloride () 5 - 30 ml IV UD PRN PRN Reason: SALINE FLUSH Last Admin: 02/14/18 12:49 Dose: 10 ml Temazepam (Restoril) 15 mg PO QHS PRN PRN PRN Reason: insomnia Thiamine HCl (Vitamin B1) 100 mg PO DAILYCM [facility] Last Admin: 02/14/18 09:00 Dose: 100 mg Medical Necessity - Tobacco Use Smoking Status: Current every day smoker Tobacco Use: Cigarettes Assessment/Plan All Active Problems (Last Reviewed 02/13/18 @ 19:06 by Killian Duke MD) Encounter for insertion of venous access port (Acute) Educational circumstance (Acute) Chemotherapy-induced nausea (Acute) Encounter for monitoring cardiotoxic drug therapy (Acute) Chemotherapy management, encounter for (Acute) Exertional dyspnea (Acute) Sore throat (Resolved) Perineal pain (Resolved) Chemotherapy management, encounter for (Acute) Diarrhea (Acute) Nausea vomiting and diarrhea (Acute) 1. Intractable diarrhea. Suspected to be secondary to side-effects of chemotherapy or some other infectious gastroenteritis. C. diff testing x 2 has been negative. May be improving 2. Suspected bowel obstruction. KUB and CT done and other clinical parameters suggesting a functional bowel obstruction essentially in the large bowel. Ileus Improving. Appreciate input from general surgery 3. 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 Leukocytosis. Was recently treated with Neulasta. Will monitor for now. 5. Hypokalemia. Only slightly better. will continue dottie replete_ Code Visit Inpatient E&M: 83580 Subs Hosp L2
--- NOTE | 2018-02-14 19:24 | PN_ITS ---
Patient Problems: Active and Suspected Problems (Last Reviewed 02/13/18 @ 19:06 by Killian Duke MD) Educational circumstance (Acute) Chemotherapy-induced nausea (Acute) Encounter for monitoring cardiotoxic drug therapy (Acute) Chemotherapy management, encounter for (Acute) Exertional dyspnea (Acute) Chemotherapy management, encounter for (Acute) Diarrhea (Acute) Nausea vomiting and diarrhea (Acute) r11.2 Subjective: f/u for enteritis Feeling better Vitals/I&O's: Vital Signs Temp Pulse Resp BP Pulse Ox 97.5 F L 84 18 129/68 H 95 02/14/18 17:38 02/14/18 17:38 02/14/18 17:38 02/14/18 17:38 02/14/18 17:38 Oxygen Delivery Method Room Air Weight: 74.2 kg Body Mass Index (BMI) 28.0 Intake and Output for Last 24 Hours 02/12/18 02/13/18 02/14/18 23:59 23:59 23:59 Intake Total 3332 / 3332 3563 / 3563 1383 / 1383 Output Total 150 / 150 Balance 3332 / 3332 3413 / 3413 1383 / 1383 General: Alert, Oriented x3, Cooperative HEENT: Atraumatic Oral: Moist Mucosa Neck: Supple Lungs: - - non labored Abdomen: Obese, - - less distended Neurological: Cranial nerves II-XII grossly intact, Neuro grossly intact Psych/Mental Status: Normal Affect, Appropriate Microbiology Past 72 Hours 02/12/18 15:41 Stool Enteric Bacteriology - Final 02/12/18 15:41 Stool C. difficile DNA Amplification - Final Laboratory Results 02/13/18 22:04: POC Glucose 104 02/14/18 06:00: WBC 18.0 H, RBC 2.47 L, Hgb 8.4 L, Hct 25.7 L, MCV 104.0 H, MCH 34.0 H, MCHC 32.7, RDW 20.3 H, RDW Differential 75.9 H, Plt Count 150, MPV 9.8, Immature Gran % (Auto) 0.800, Neut % (Auto) 87.5 H, Lymph % (Auto) 6.8 L, [place] % (Auto) 4.8, Eos % (Auto) 0.0, Baso % (Auto) 0.1, Absolute Neuts (auto) 15.8 H , Absolute Lymphs (auto) 1.22, Total Counted Not Reportable, Differential Comment SCAN, Polychromasia 1+, Anisocytosis 1+, Macrocytosis 1+ 02/14/18 06:00: Sodium 142, Potassium 3.2 L, Chloride 111 H, Carbon Dioxide 24.0 , Anion Gap 7, BUN 4 L, Creatinine 0.47 L, Estim Creat Clear Calc 45.20, Est GFR (MDRD) Af Amer 169, Est GFR (MDRD) Non-Af 140, BUN/Creatinine Ratio 8.5 L, Glucose 76, Calcium 7.3 L, Total Bilirubin 0.30, AST 19, ALT 21, Alkaline Phosphatase 123 H, Total Protein 5.3 L, Albumin 2.5 L, Globulin 2.8, Albumin/ Globulin Ratio 0.9 02/14/18 06:35: POC Glucose 80 02/14/18 10:42: POC Glucose 73 02/14/18 14:33: POC Glucose 69 L 02/14/18 15:19: POC Glucose 71 Current Medications Al Hydroxide/Mg Hydroxide (Mylanta Ii) 30 ml PO Q4H PRN PRN PRN Reason: INDIGESTION Last Admin: 02/13/18 15:59 Dose: 30 ml Albuterol Sulfate (Ventolin Aerosols) 2.5 mg INHALATION Q2H PRN PRN PRN Reason: dyspnea, wheezing Albuterol/Ipratropium (Duoneb) 3 ml INHALATION Q6HWA.RT [facility] Last Admin: 02/14/18 18:56 Dose: 3 ml Enoxaparin Sodium (Lovenox) 40 mg SC DAILY@1000 [facility] Last Admin: 02/14/18 09:00 Dose: 40 mg Insulin Human Lispro (Humalog Kwikpen (Bkc)) 0 unit SC ACHS [facility] PRN Reason: Protocol Last Admin: 02/14/18 15:57 Dose: Not Given Labetalol HCl (Trandate) 10 mg IV Q4H PRN PRN PRN Reason: SBP > 160, hold for HR < 60 Levothyroxine Sodium (Synthroid) 137 mcg PO DAILY@0600 [facility] Last Admin: 02/14/18 06:32 Dose: 137 mcg Morphine Sulfate () 1 - 2 mg IV Q4H PRN PRN PRN Reason: PAIN Nicotine (Nicoderm Cq (Pbkc)) 7 mg TRANSDERM. DAILY PRN PRN Reason: Nicotine Craving Ondansetron HCl (Zofran) 4 mg IV Q8H PRN PRN PRN Reason: NAUSEA Last Admin: 02/12/18 20:14 Dose: 4 mg Potassium Bicarb/Potassium Chloride (Potassium Chl 25 Meq Eff (For Liquid)) 50 meq PO BIDCM [facility] Stop: 02/16/18 08:01 Last Admin: 02/14/18 16:04 Dose: 50 meq Promethazine HCl (Phenergan) 12.5 mg IV Q6H PRN PRN PRN Reason: NAUSEA/VOMITING Last Admin: 02/12/18 22:37 Dose: 12.5 mg Sodium Chloride () 5 - 30 ml IV UD PRN PRN Reason: SALINE FLUSH Last Admin: 02/14/18 12:49 Dose: 10 ml Temazepam (Restoril) 15 mg PO QHS PRN PRN PRN Reason: insomnia Thiamine HCl (Vitamin B1) 100 mg PO DAILYCM [facility] Last Admin: 02/14/18 09:00 Dose: 100 mg Medical Necessity - Tobacco Use Smoking Status: Current every day smoker Tobacco Use: Cigarettes Assessment/Plan All Active Problems (Last Reviewed 02/13/18 @ 19:06 by Killian Duke MD) Encounter for insertion of venous access port (Acute) Educational circumstance (Acute) Chemotherapy-induced nausea (Acute) Encounter for monitoring cardiotoxic drug therapy (Acute) Chemotherapy management, encounter for (Acute) Exertional dyspnea (Acute) Sore throat (Resolved) Perineal pain (Resolved) Chemotherapy management, encounter for (Acute) Diarrhea (Acute) Nausea vomiting and diarrhea (Acute) 1. Intractable diarrhea. Suspected to be secondary to side-effects of chemotherapy or some other infectious gastroenteritis. C. diff testing x 2 has been negative. May be improving 2. Suspected bowel obstruction. KUB and CT done and other clinical parameters suggesting a functional bowel obstruction essentially in the large bowel. Ileus Improving. Appreciate input from general surgery 3. 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 Leukocytosis. Was recently treated with Neulasta. Will monitor for now. 5. Hypokalemia. Only slightly better. will continue dottie replete_ Code Visit Inpatient E&M: 99815 Subs Hosp L2
[2018-02-14 22:35] LABS: Bedside Glucose 85 mg/dL (70-110)
[2018-02-15] VITALS (14 sets, daily range): BP systolic 107–133; BP diastolic 56–60; PULSE 60–104; RESP 18–20; TEMP 36.7–37.1; O2SAT 93–99
[2018-02-15] MEDS: 0.9% NaCl Peripheral Flush Adult/Peds IV (00:20)
[2018-02-15] MEDS: Ondansetron 4 MG/2 ML Vial IV (00:21)
[2018-02-15 06:25] LABS: Albumin, Serum 2.7 g/dL (3.2-5.0); BUN 3 mg/dL (7-18); BUN/Creat Ratio 7.3 RATIO (10-20); Calcium,Total 7.7 mg/dL (8.5-10.1); Chloride 107 mmol/L (98-107); Creatinine, Serum 0.41 mg/dL (0.55-1.02); EST Glomerular Filtration Rate 162 mL/min (>60); Est Glom Filt Rate - Afr Amer 196 mL/min (>60); Glucose 80 mg/dL (74-106); Phosphorus 2.9 mg/dL (2.5-4.9); Potassium 3.3 mmol/L (3.5-5.1); Sodium Level 141 mmol/L (136-145)
[2018-02-15] MEDS: Levothyroxine 137 MCG Tablet PO (06:43)
[2018-02-15 06:45] LABS: Bedside Glucose 80 mg/dL (70-110)
[2018-02-15] MEDS: Thiamine Hydrochloride 100 MG Tablet PO (08:15)
--- NOTE | 2018-02-15 10:28 | PCM.PN.SRG ---
Patient Problems: Active and Suspected Problems (Last Reviewed 02/13/18 @ 19:06 by Killian Duke MD) Educational circumstance (Acute) Chemotherapy-induced nausea (Acute) Encounter for monitoring cardiotoxic drug therapy (Acute) Chemotherapy management, encounter for (Acute) Exertional dyspnea (Acute) Chemotherapy management, encounter for (Acute) Diarrhea (Acute) Nausea vomiting and diarrhea (Acute) r11.2 Subjective: Patient up walking the halls this morning. Still has difficulty with waxing and waning bowel movements. Objective: Abdomen is soft - Physical Exam Vital Signs Temp Pulse Resp BP Pulse Ox 98.8 F 62 18 107/56 L 93 02/15/18 04:30 02/15/18 06:59 02/15/18 04:30 02/15/18 04:30 02/15/18 09:38 Oxygen Delivery Method Room Air Weight: 163 lb 9.328 oz Body Mass Index (BMI) 28.0 Intake and Output for Last 24 Hours 02/13/18 02/14/18 02/15/18 23:59 23:59 23:59 Intake Total 3563 / 3563 1783 / 1783 Output Total 150 / 150 125 / 125 Balance 3413 / 3413 1658 / 1658 Microbiology Past 72 Hours 02/12/18 15:41 Enteric Bacteriology - Final Stool 02/12/18 15:41 C. difficile DNA Amplification - Final Stool Laboratory Tests Past 24 Hrs 02/15/18 05:36 Sodium 141 Potassium 3.3 L Chloride 107 Carbon Dioxide 24.0 BUN 3 L Creatinine 0.41 L Estim Creat Clear Calc 45.20 Est GFR (MDRD) Af Amer 196 Est GFR (MDRD) Non-Af 162 BUN/Creatinine Ratio 7.3 L Glucose 80 Calcium 7.7 L Phosphorus 2.9 Albumin 2.7 L POC Glucose 02/15/18 02/14/18 02/14/18 06:39 22:29 15:19 POC Glucose 80 85 71 02/14/18 02/14/18 14:33 10:42 POC Glucose 69 L 73 Medical Necessity - Tobacco Use Smoking Status: Current every day smoker Tobacco Use: Cigarettes Assessment/Plan All Active Problems (Last Reviewed 02/13/18 @ 19:06 by Killian Duke MD) Encounter for insertion of venous access port (Acute) Educational circumstance (Acute) Chemotherapy-induced nausea (Acute) Encounter for monitoring cardiotoxic drug therapy (Acute) Chemotherapy management, encounter for (Acute) Exertional dyspnea (Acute) Sore throat (Resolved) Perineal pain (Resolved) Chemotherapy management, encounter for (Acute) Diarrhea (Acute) Nausea vomiting and diarrhea (Acute) No surgical interventions needed at this time.
[2018-02-15] MEDS: Enoxaparin 40 MG/0.4 ML Syringe SC (10:33)
[2018-02-15 10:40] LABS: Bedside Glucose 81 mg/dL (70-110)
[2018-02-15] MEDS: Potassium Chloride 40 MEQ in 0.45% Normal Saline 1,000 ML 100 MEQ IV (11:09)
--- NOTE | 2018-02-15 16:30 | PCM.PN.HOSP ---
Patient Problems: Active and Suspected Problems (Last Reviewed 02/13/18 @ 19:06 by Killian Duke MD) Nausea vomiting and diarrhea (Acute) r11.2 Subjective: f/u for gastroenteritis Seen and examined Still having waxing and waning symptoms No fever or chills Vitals/I&O's: Vital Signs Temp Pulse Resp BP Pulse Ox 98.1 F 62 18 110/59 L 98 02/15/18 16:15 02/15/18 16:15 02/15/18 16:15 02/15/18 16:15 02/15/18 16:15 Oxygen Delivery Method Room Air Weight: 74.2 kg Body Mass Index (BMI) 28.0 Intake and Output for Last 24 Hours 02/13/18 02/14/18 02/15/18 23:59 23:59 23:59 Intake Total 3563 / 3563 1783 / 1783 1545 / 1545 Output Total 150 / 150 125 / 125 Balance 3413 / 3413 1658 / 1658 1545 / 1545 General: Alert, Oriented x3, Cooperative HEENT: Atraumatic Oral: Moist Mucosa Neck: Supple Lungs: Diminished, Rhonchi, Short of Breath, Tachypneic, Wheezes Cardiovascular: Regular rate Abdomen: - - mildly distended, less tympanitic, less tender Psych/Mental Status: Normal Affect, Appropriate, Alert and oriented to time, place, person, mood and affect Microbiology Past 72 Hours 02/12/18 15:41 Stool Enteric Bacteriology - Final 02/12/18 15:41 Stool C. difficile DNA Amplification - Final Laboratory Results 02/14/18 22:29: POC Glucose 85 02/15/18 05:36: Sodium 141, Potassium 3.3 L, Chloride 107, Carbon Dioxide 24.0, BUN 3 L, Creatinine 0.41 L, Estim Creat Clear Calc 45.20, Est GFR (MDRD) Af Amer 196, Est GFR (MDRD) Non-Af 162, BUN/Creatinine Ratio 7.3 L, Glucose 80, Calcium 7.7 L, Phosphorus 2.9, Albumin 2.7 L 02/15/18 06:39: POC Glucose 80 02/15/18 10:33: POC Glucose 81 Current Medications Al Hydroxide/Mg Hydroxide (Mylanta Ii) 30 ml PO Q4H PRN PRN PRN Reason: INDIGESTION Last Admin: 02/13/18 15:59 Dose: 30 ml Albuterol/Ipratropium (Duoneb) 3 ml INHALATION Q6HWA.RT [facility] Last Admin: 02/15/18 12:19 Dose: Not Given Enoxaparin Sodium (Lovenox) 40 mg SC DAILY@1000 [facility] Last Admin: 02/15/18 10:33 Dose: 40 mg Potassium Chloride 40 meq/ (Dextrose/Sodium Chloride) 1,020 mls @ 100 mls/hr IV .[id number] [facility] Insulin Human Lispro (Humalog Kwikpen (Bkc)) 0 unit SC ACHS [facility] PRN Reason: Protocol Last Admin: 02/15/18 16:23 Dose: Not Given Levothyroxine Sodium (Synthroid) 137 mcg PO DAILY@0600 [facility] Last Admin: 02/15/18 06:43 Dose: 137 mcg Morphine Sulfate () 1 - 2 mg IV Q4H PRN PRN PRN Reason: PAIN Nicotine (Nicoderm Cq (Pbkc)) 7 mg TRANSDERM. DAILY PRN PRN Reason: Nicotine Craving Ondansetron HCl (Zofran) 4 mg IV Q8H PRN PRN PRN Reason: NAUSEA Last Admin: 02/15/18 00:21 Dose: 4 mg Potassium Bicarb/Potassium Chloride (Potassium Chl 25 Meq Eff (For Liquid)) [facility]: 02/16/18 08:01 Last Admin: 02/15/18 16:14 Dose: 50 meq Promethazine HCl (Phenergan) 12.5 mg IV Q6H PRN PRN PRN Reason: NAUSEA/VOMITING Last Admin: 02/12/18 22:37 Dose: 12.5 mg Sodium Chloride () 5 - 30 ml IV UD PRN PRN Reason: SALINE FLUSH Last Admin: 02/15/18 00:20 Dose: 10 ml Temazepam (Restoril) 15 mg PO QHS PRN PRN PRN Reason: insomnia Thiamine HCl (Vitamin B1) [facility] Last Admin: 02/15/18 08:15 Dose: 100 mg Medical Necessity - Tobacco Use Smoking Status: Current every day smoker Tobacco Use: Cigarettes Assessment/Plan All Active Problems (Last Reviewed 02/13/18 @ 19:06 by Killian Duke MD) Encounter for insertion of venous access port (Acute) Educational circumstance (Acute) Chemotherapy-induced nausea (Acute) Encounter for monitoring cardiotoxic drug therapy (Acute) Chemotherapy management, encounter for (Acute) Exertional dyspnea (Acute) Sore throat (Resolved) Perineal pain (Resolved) Chemotherapy management, encounter for (Acute) Diarrhea (Acute) Nausea vomiting and diarrhea (Acute) 1. Intractable diarrhea. Suspected to be secondary to side-effects of chemotherapy or some other infectious gastroenteritis. C. diff testing x 2 has been negative. still having symptoms 2. Suspected bowel obstruction. KUB and CT done and other clinical parameters suggesting a functional bowel obstruction essentially in the large bowel. Ileus Improving. Appreciate input from general surgery 3. 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 Leukocytosis. Was recently treated with Neulasta. Will monitor for now. 5. Hypokalemia. Only slightly better still, likely due to continued GI losses from diarrhea. Will continue to replete_ Code Visit Inpatient E&M: [id number] Subs Hosp L2
--- NOTE | 2018-02-15 16:34 | PN_ITS ---
Patient Problems: Active and Suspected Problems (Last Reviewed 02/13/18 @ 19:06 by Killian Duke MD) Nausea vomiting and diarrhea (Acute) r11.2 Subjective: f/u for gastroenteritis Seen and examined Still having waxing and waning symptoms No fever or chills Vitals/I&O's: Vital Signs Temp Pulse Resp BP Pulse Ox 98.1 F 62 18 110/59 L 98 02/15/18 16:15 02/15/18 16:15 02/15/18 16:15 02/15/18 16:15 02/15/18 16:15 Oxygen Delivery Method Room Air Weight: 74.2 kg Body Mass Index (BMI) 28.0 Intake and Output for Last 24 Hours 02/13/18 02/14/18 02/15/18 23:59 23:59 23:59 Intake Total 3563 / 3563 1783 / 1783 1545 / 1545 Output Total 150 / 150 125 / 125 Balance 3413 / 3413 1658 / 1658 1545 / 1545 General: Alert, Oriented x3, Cooperative HEENT: Atraumatic Oral: Moist Mucosa Neck: Supple Lungs: Diminished, Rhonchi, Short of Breath, Tachypneic, Wheezes Cardiovascular: Regular rate Abdomen: - - mildly distended, less tympanitic, less tender Psych/Mental Status: Normal Affect, Appropriate, Alert and oriented to time, place, person, mood and affect Microbiology Past 72 Hours 02/12/18 15:41 Stool Enteric Bacteriology - Final 02/12/18 15:41 Stool C. difficile DNA Amplification - Final Laboratory Results 02/14/18 22:29: POC Glucose 85 02/15/18 05:36: Sodium 141, Potassium 3.3 L, Chloride 107, Carbon Dioxide 24.0, BUN 3 L, Creatinine 0.41 L, Estim Creat Clear Calc 45.20, Est GFR (MDRD) Af Amer 196, Est GFR (MDRD) Non-Af 162, BUN/Creatinine Ratio 7.3 L, Glucose 80, Calcium 7.7 L, Phosphorus 2.9, Albumin 2.7 L 02/15/18 06:39: POC Glucose 80 02/15/18 10:33: POC Glucose 81 Current Medications Al Hydroxide/Mg Hydroxide (Mylanta Ii) 30 ml PO Q4H PRN PRN PRN Reason: INDIGESTION Last Admin: 02/13/18 15:59 Dose: 30 ml Albuterol/Ipratropium (Duoneb) 3 ml INHALATION Q6HWA.RT [facility] Last Admin: 02/15/18 12:19 Dose: Not Given Enoxaparin Sodium (Lovenox) 40 mg SC DAILY@1000 [facility] Last Admin: 02/15/18 10:33 Dose: 40 mg Potassium Chloride 40 meq/ (Dextrose/Sodium Chloride) 1,020 mls @ 100 mls/hr IV .[id number] [facility] Insulin Human Lispro (Humalog Kwikpen (Bkc)) 0 unit SC ACHS [facility] PRN Reason: Protocol Last Admin: 02/15/18 16:23 Dose: Not Given Levothyroxine Sodium (Synthroid) 137 mcg PO DAILY@0600 [facility] Last Admin: 02/15/18 06:43 Dose: 137 mcg Morphine Sulfate () 1 - 2 mg IV Q4H PRN PRN PRN Reason: PAIN Nicotine (Nicoderm Cq (Pbkc)) 7 mg TRANSDERM. DAILY PRN PRN Reason: Nicotine Craving Ondansetron HCl (Zofran) 4 mg IV Q8H PRN PRN PRN Reason: NAUSEA Last Admin: 02/15/18 00:21 Dose: 4 mg Potassium Bicarb/Potassium Chloride (Potassium Chl 25 Meq Eff (For Liquid)) [facility] Stop: 02/16/18 08:01 Last Admin: 02/15/18 16:14 Dose: 50 meq Promethazine HCl (Phenergan) 12.5 mg IV Q6H PRN PRN PRN Reason: NAUSEA/VOMITING Last Admin: 02/12/18 22:37 Dose: 12.5 mg Sodium Chloride () 5 - 30 ml IV UD PRN PRN Reason: SALINE FLUSH Last Admin: 02/15/18 00:20 Dose: 10 ml Temazepam (Restoril) 15 mg PO QHS PRN PRN PRN Reason: insomnia Thiamine [facility] ([facility]itamin B1) [facility] Last Admin: 02/15/18 08:15 Dose: 100 mg Medical Necessity - Tobacco Use Smoking Status: Current every day smoker Tobacco Use: Cigarettes Assessment/Plan All Active Problems (Last Reviewed 02/13/18 @ 19:06 by Killian Duke MD) Encounter for insertion of venous access port (Acute) Educational circumstance (Acute) Chemotherapy-induced nausea (Acute) Encounter for monitoring cardiotoxic drug therapy (Acute) Chemotherapy management, encounter for (Acute) Exertional dyspnea (Acute) Sore throat (Resolved) Perineal pain (Resolved) Chemotherapy management, encounter for (Acute) Diarrhea (Acute) Nausea vomiting and diarrhea (Acute) 1. Intractable diarrhea. Suspected to be secondary to side-effects of chemotherapy or some other infectious gastroenteritis. C. diff testing x 2 has been negative. still having symptoms 2. Suspected bowel obstruction. KUB and CT done and other clinical parameters suggesting a functional bowel obstruction essentially in the large bowel. Ileus Improving. Appreciate input from general surgery 3. 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 Leukocytosis. Was recently treated with Neulasta. Will monitor for now. 5. Hypokalemia. Only slightly better still, likely due to continued GI losses from diarrhea. Will continue to replete_ Code Visit Inpatient E&M: 12657 Subs Hosp L2
[2018-02-15 17:50] LABS: Bedside Glucose 66 mg/dL (70-110)
[2018-02-15 17:50] LABS: Bedside Glucose 74 mg/dL (70-110)
[2018-02-15] MEDS: Potassium Chloride 40 MEQ in Dextrose 5%/0.9% NaCl 1,000 ML 100 MEQ IV (18:46)
[2018-02-15] MEDS: Ipratropium/Albuterol Sulfate 3 ML AMPUL.NEB INHALATION (20:06)
[2018-02-15] MEDS: Mag Hydrox/Al Hydrox/Simeth 30 ML UDC PO (20:37)
[2018-02-15 22:51] LABS: Bedside Glucose 95 mg/dL (70-110)
[2018-02-16] VITALS (7 sets, daily range): BP systolic 98–108; BP diastolic 48–55; PULSE 58–88; RESP 16–20; TEMP 36.9–37.2; O2SAT 94–99
[2018-02-16] MEDS: Potassium Chloride 40 MEQ in Dextrose 5%/0.9% NaCl 1,000 ML 100 MEQ IV (05:05)
[2018-02-16] MEDS: Levothyroxine 137 MCG Tablet PO (06:34)
[2018-02-16 06:45] LABS: Bedside Glucose 73 mg/dL (70-110)
[2018-02-16 07:04] LABS: Anion Gap 5 (5-15); BUN 2 mg/dL (7-18); BUN/Creat Ratio 4.2 RATIO (10-20); Chloride 113 mmol/L (98-107); Creatinine, Serum 0.48 mg/dL (0.55-1.02); EST Glomerular Filtration Rate 137 mL/min (>60); Est Glom Filt Rate - Afr Amer 166 mL/min (>60); Glucose 68 mg/dL (74-106); Potassium 4.6 mmol/L (3.5-5.1); Sodium Level 143 mmol/L (136-145)
[2018-02-16] MEDS: Ipratropium/Albuterol Sulfate 3 ML AMPUL.NEB INHALATION ×2 (07:04→12:47)
[2018-02-16] MEDS: Enoxaparin 40 MG/0.4 ML Syringe SC (08:17)
[2018-02-16] MEDS: Thiamine Hydrochloride 100 MG Tablet PO (08:17)
--- NOTE | 2018-02-16 10:21 | PCM.PN.SRG ---
Patient Problems: Active and Suspected Problems (Last Reviewed 02/13/18 @ 19:06 by Killian Duke MD) Nausea vomiting and diarrhea (Acute) r11.2 Subjective: Patient evaluated resting comfortably in bed. No nausea, vomiting. She continues to note diarrhea/loose stools. She denies abdominal pain/discomfort. - Physical Exam General: Alert, Oriented x3, Cooperative Abdomen: Bowel Sounds Present, Soft, Non Tender, Non-Distended Vital Signs Temp Pulse Resp BP Pulse Ox 98.9 F 76 16 98/48 L 97 02/16/18 08:30 02/16/18 08:30 02/16/18 08:30 02/16/18 08:30 02/16/18 08:30 Oxygen Delivery Method Room Air Weight: 163 lb 9.328 oz Body Mass Index (BMI) 28.0 Intake and Output for Last 24 Hours 02/14/18 02/15/18 02/16/18 23:59 23:59 23:59 Intake Total 1783 / 1783 2973 / 2973 1395 / 1395 Output Total 125 / 125 Balance 1658 / 1658 2973 / 2973 1395 / 1395 Microbiology Past 72 Hours 02/12/18 15:41 Enteric Bacteriology - Final Stool Laboratory Tests Past 24 Hrs 02/16/18 06:10 Sodium 143 Potassium 4.6 Chloride 113 H Carbon Dioxide 25.0 Anion Gap 5 BUN 2 L Creatinine 0.48 L Estim Creat Clear Calc 45.20 Est GFR (MDRD) Af Amer 166 Est GFR (MDRD) Non-Af 137 BUN/Creatinine Ratio 4.2 L Glucose 68 L Calcium 8.0 L POC Glucose 02/16/18 02/15/18 02/15/18 06:32 22:45 17:46 POC Glucose 73 95 74 02/15/18 02/15/18 16:15 10:33 POC Glucose 66 L 81 Medical Necessity - Tobacco Use Smoking Status: Current every day smoker Tobacco Use: Cigarettes Assessment/Plan All Active Problems (Last Reviewed 02/13/18 @ 19:06 by Killian Duke MD) Encounter for insertion of venous access port (Acute) Educational circumstance (Acute) Chemotherapy-induced nausea (Acute) Encounter for monitoring cardiotoxic drug therapy (Acute) Chemotherapy management, encounter for (Acute) Exertional dyspnea (Acute) Sore throat (Resolved) Perineal pain (Resolved) Chemotherapy management, encounter for (Acute) Diarrhea (Acute) Nausea vomiting and diarrhea (Acute) I am following this patient in conjunction with Dr. Duke Impression: Diarrhea; side-effect related to chemotherapy Potassium within normal range Advance diet as tolerated May be discharge once cleared by medicine and oncology No surgical intervention needed at this time Code Visit Inpatient E&M: 19836 Subs Hosp L1
[2018-02-16 11:40] LABS: Bedside Glucose 71 mg/dL (70-110)
--- NOTE | 2018-02-16 12:52 | PCM.DC ---
- Discharge Diagnoses Current Active Problems: Current Active and Chronic Problems (Last Reviewed 02/13/18 @ 19:06 by Killian Duke MD) Asthma with COPD (Chronic) Tobacco use (Chronic) History of alcohol abuse (Chronic) Prediabetes (Chronic) Hypothyroidism (acquired) (Chronic) Nausea vomiting and diarrhea (Acute) r11.2 You will use the following diet at home:: No restrictions, Regular Your food should be the consistency of: Regular Discharge Activity: Return to Normal Activity, No Restrictions, May Drive Allergies/Adverse Reactions: Allergies No Known Allergies Allergy (Verified 02/12/18 12:19) Medications to take at Discharge Albuterol Aerosols [Ventolin Aerosols] 1 puff INHALATION DAILY 10/21/17 Albuterol Inhaler [Ventolin Hfa] 1 puff INHALATION DAILY 10/21/17 Fluticasone/Vilanterol [Breo Ellipta 200-25 Mcg INH] 1 puff INHALATION QODAY 10/21/17 Levothyroxine [Synthroid] 137 mcg PO DAILY 10/21/17 Metformin HCl [Metformin HCl ER] 500 mg PO DAILY 10/21/17 Dexamethasone [Decadron] 8 mg PO BID 63 Days #36 tab 10/30/17 Lidocaine/Prilocaine [Lidocaine-Prilocaine Cream] 30 gm TP DAILY PRN PRN 30 Days #1 cream..g. 10/30/17 Ondansetron HCl [Zofran] 4 mg PO Q8H PRN PRN 10 Days #30 tab 10/30/17 Primary Care Physician: Mike Asher MD [Primary Care Provider] - Test Results: Test results from this visit will be discussed in further detail at your follow-up appointment, if applicable. Please Follow Up With: Mike Asher MD Proposed Discharge Date: 02/16/18
--- NOTE | 2018-02-16 12:53 | PCM.DC.SUM ---
Discharge Date and Diagnosis - Problem List Patient Problems: Active and Suspected Problems (Last Reviewed 02/13/18 @ 19:06 by Killian Duke MD) Nausea vomiting and diarrhea (Acute) r11.2 Large bowel obstruction (Acute) Ileus (Acute) Hypokalemia due to loss of potassium (Acute) Date of Admission: 02/12/18 Date of Discharge: 02/16/18 - Primary Discharge Diagnosis Active and Suspected Problems (Last Reviewed 02/13/18 @ 19:06 by Killian Duke MD) Nausea vomiting and diarrhea (Acute) r11.2 Hypokalemia large bowel obstruction Ileus - Secondary Discharge Diagnosis Chronic Problems (Last Reviewed 02/13/18 @ 19:06 by Killian Duke MD) Breast cancer, right breast (Chronic) Asthma with COPD (Chronic) Tobacco use (Chronic) History of alcohol abuse (Chronic) Prediabetes (Chronic) Hypothyroidism (acquired) (Chronic) Hospital Course and Treatment Operations: None Procedures: None Summary of Care Provided: The patient is a 72 year old F who is currently undergoing chemotherapy for stage II breast cancer. Admitted on account of persistent and intractable nausea, vomiting and diarrhea. This was deemed to be related and secondary to her chemotherapy and patient was treated symptomatically with antiemetics and IV fluids. After a day or two after symptoms initially appeared to be improving, patient developed worsening and increasing abdominal distension and worsening of vomiting. Bowel obstruction was suspected and so patient had KUB and CT which confirmed an ileus and no mechanical obstruction. Severe hypokalemia noted and this was aggressively repleted and ileus managed conservatively and general surgery consulted. Today patient is doing better now and tolerating regular diet it seems. She is stable for discharge and surgery is also ok with this.[] Discharge Diet: No Restrictions Discharge Activity: Return to Normal Activity, No Restrictions, May Drive Home Medications: Medications to take at Discharge Albuterol Aerosols [Ventolin Aerosols] 1 puff INHALATION DAILY 10/21/17 Albuterol Inhaler [Ventolin Hfa] 1 puff INHALATION DAILY 10/21/17 Fluticasone/Vilanterol [Breo Ellipta 200-25 Mcg INH] 1 puff INHALATION QODAY 10/21/17 Levothyroxine [Synthroid] 137 mcg PO DAILY 10/21/17 Metformin HCl [Metformin HCl ER] 500 mg PO DAILY 10/21/17 Dexamethasone [Decadron] 8 mg PO BID 63 Days #36 tab 10/30/17 Lidocaine/Prilocaine [Lidocaine-Prilocaine Cream] 30 gm TP DAILY PRN PRN 30 Days #1 cream..g. 10/30/17 Ondansetron HCl [Zofran] 4 mg PO Q8H PRN PRN 10 Days #30 tab 10/30/17 Primary Care Physician: Mike Asher MD [Primary Care Provider] - Please Follow Up With: Mike Asher MD Disposition: Home Minutes spent on discharge:: 36 Patient Condition:: Stable Medical Necessity - Tobacco Use Smoking Status: Current every day smoker Tobacco Use: Cigarettes Meaningful Use Info Meaningful Use Diagnoses (Choose all that apply): None applicable Code Visit Inpatient E&M: 18337 Disch Hosp
--- NOTE | 2018-02-16 12:57 | NURSING ---
pt notified that she is supposed to have labs drawn through oncology 02/17, wondering if she can have labs done today so she doesn't have to come back next day. contacted Dr Hoyt's office, stated it's okay for pt to have labs drawn here, they need a CBC, Mag, CMP & also, pt does not need to come to appt with Ratna on 02/17, can just come 02/24 for her next treatment.
--- NOTE | 2018-02-16 13:02 | DS.PCM_ITS ---
Discharge Date and Diagnosis - Problem List Patient Problems: Active and Suspected Problems (Last Reviewed 02/13/18 @ 19:06 by Killian Duke MD) Nausea vomiting and diarrhea (Acute) r11.2 Large bowel obstruction (Acute) Ileus (Acute) Hypokalemia due to loss of potassium (Acute) Date of Admission: 02/12/18 Date of Discharge: 02/16/18 - Primary Discharge Diagnosis Active and Suspected Problems (Last Reviewed 02/13/18 @ 19:06 by Killian Duke MD) Nausea vomiting and diarrhea (Acute) r11.2 Hypokalemia large bowel obstruction Ileus - Secondary Discharge Diagnosis Chronic Problems (Last Reviewed 02/13/18 @ 19:06 by Killian Duke MD) Breast cancer, right breast (Chronic) Asthma with COPD (Chronic) Tobacco use (Chronic) History of alcohol abuse (Chronic) Prediabetes (Chronic) Hypothyroidism (acquired) (Chronic) Hospital Course and Treatment Operations: None Procedures: None Summary of Care Provided: The patient is a 72 year old F who is currently undergoing chemotherapy for stage II breast cancer. Admitted on account of persistent and intractable nausea , vomiting and diarrhea. This was deemed to be related and secondary to her chemotherapy and patient was treated symptomatically with antiemetics and IV fluids. After a day or two after symptoms initially appeared to be improving, patient developed worsening and increasing abdominal distension and worsening of vomiting. Bowel obstruction was suspected and so patient had KUB and CT which confirmed an ileus and no mechanical obstruction. Severe hypokalemia noted and this was aggressively repleted and ileus managed conservatively and general surgery consulted. Today patient is doing better now and tolerating regular diet it seems. She is stable for discharge and surgery is also ok with this.[] Discharge Diet: No Restrictions Discharge Activity: Return to Normal Activity, No Restrictions, May Drive Home Medications: Medications to take at Discharge Albuterol Aerosols [Ventolin Aerosols] 1 puff INHALATION DAILY 10/21/17 Albuterol Inhaler [Ventolin Hfa] 1 puff INHALATION DAILY 10/21/17 Fluticasone/Vilanterol [Breo Ellipta 200-25 Mcg INH] 1 puff INHALATION QODAY Levothyroxine [Synthroid] 137 mcg PO DAILY 10/21/17 Metformin HCl [Metformin HCl ER] 500 mg PO DAILY 10/21/17 Dexamethasone [Decadron] 8 mg PO BID 63 Days #36 tab 10/30/17 Lidocaine/Prilocaine [Lidocaine-Prilocaine Cream] 30 gm TP DAILY PRN PRN 30 Days #1 cream..g. 10/30/17 Ondansetron HCl [Zofran] 4 mg PO Q8H PRN PRN 10 Days #30 tab 10/30/17 Primary Care Physician: Mike Asher MD [Primary Care Provider] - Please Follow Up With: Mike Asher MD Disposition: Home Minutes spent on discharge:: 36 Patient Condition:: Stable Medical Necessity - Tobacco Use Smoking Status: Current every day smoker Tobacco Use: Cigarettes Meaningful Use Info Meaningful Use Diagnoses (Choose all that apply): None applicable Code Visit Inpatient E&M: 65233 Disch Hosp
[2018-02-16] MEDS: 0.9% NaCl Peripheral Flush Adult/Peds IV ×3 (13:15→18:41)
[2018-02-16 13:25] LABS: Absolute Lymphocyte Count 1.49 X10^3/ul (0.83-4.51); Absolute Neutrophil Count 11.9 X10^3/uL (2.0-7.7); Basophil# 0.03 X10^3/uL; Basophil% 0.2 % (0-1); Eosinophil# 0.01 X10^3/uL; Eosinophils% 0.1 % (0-5); Hematocrit 27.6 % (37-47); Hemoglobin 9.3 g/dl (12.0-15.0); Lymphocyte # 1.49 X10^3/ul (4.0); Lymphocyte % 10.4 % (19-41); Mean Corp Hgb Conc 33.7 g/gl (32-36); Mean Corpuscular Hgb 36.2 pg (27.0-32.0); Mean Corpuscular Volume 107.4 fL (81-99); Mean Platelet Vol. 9.8 fl (6.2-12.0); Monocyte# 0.78 X10^3/uL; Monocyte% 5.4 % (0-10); Neutrophil # 11.85 X10^3/uL (2.7-7.7); Neutrophil % 82.8 % (47-70); Platelet Count 126 K/mm3 (150-450); RBC Distribution Width CV 20.2 % (11.6-14.6); RBC Distribution Width SD 75.2 fl (35.1-43.9); Red Blood Count 2.57 M/mm3 (4.2-5.4); White Blood Count 14.3 K/mm3 (4.4-11.0)
[2018-02-16 13:28] LABS: Differential Indicated SCAN CRITERIA MET; POSITIVE COUNT NO; POSITIVE DIFFERENTIAL NO; POSITIVE MORPHOLOGY YES
[2018-02-16 13:42] LABS: ALB/GLOB Ratio 0.9 RATIO (0.9-2.4); AST(SGOT) 16 U/L (15-37); Alanine Aminotransfer ALT/SGPT 25 U/L (13-56); Albumin, Serum 2.9 g/dL (3.2-5.0); Alkaline Phosphatase 139 U/L (45-117); Anion Gap 8 (5-15); BUN 3 mg/dL (7-18); BUN/Creat Ratio 5.6 RATIO (10-20); Calcium,Total 7.9 mg/dL (8.5-10.1); Chloride 112 mmol/L (98-107); Creatinine, Serum 0.53 mg/dL (0.55-1.02); EST Glomerular Filtration Rate 121 mL/min (>60); Est Glom Filt Rate - Afr Amer 146 mL/min (>60); Globulin 3.1 g/dL (2.2-4.2); Glucose 90 mg/dL (74-106); Magnesium 1.7 mg/dL (1.6-2.6); Potassium 4.6 mmol/L (3.5-5.1); Sodium Level 142 mmol/L (136-145)
--- NOTE | 2018-02-16 18:46 | NURSING ---
MAGNESIUM SULFATE INFUSION COMPLETE, FLUSHED LINE WITH 10 ML NS & 5 ML HEPARIN. DEACCESSED PORT. PT TOLERATED WELL.
--- NOTE | 2018-02-18 14:25 | CASEMGMT ---
[facility]U Discharge F/U Phone Call LACE: 12 Strata: 4 Discharge date: 02/16/18 Call date: 02/18/18 Call time: [id number] Duration: 2 minutes Admission dx: Hypokalemia, diarrhea, gastroenteritis Pt states has been doing 'pretty good' and states is headed out to get groceries at this time. Pt states no questions regarding discharge instructions or medications at this time. Pt states has f/u appts scheduled and plans to keep them at this time. Pt states no suggestions for [facility] at this time. Pt states 'everyone treated me very well and took great care of me.' Pt voices no further questions/concerns/needs at this time. [place] [facility]
== END 2018-02-16 18:49 | disposition home or self-care (01) | DRG 394 ==
LOC: ED 12:46 → PCU 13:54
PROVIDERS: Hospitalist; Admitting Provider Family Medicine; Emergency Provider Emergency Medicine; Visit Provider Internal Medicine
DX: K52.1 Toxic gastroenteritis and colitis (principal); C77.3 Secondary and unspecified malignant neoplasm of axilla and upper limb lymph nodes; K56.7 Ileus, unspecified; T45.1X5A Adverse effect of antineoplastic and immunosuppressive drugs, initial encounter; E87.6 Hypokalemia; C50.411 Malignant neoplasm of upper-outer quadrant of right female breast; Z17.0 Estrogen receptor positive status [ER+]; R73.03 Prediabetes; F17.210 Nicotine dependence, cigarettes, uncomplicated; E89.0 Postprocedural hypothyroidism; J44.9 Chronic obstructive pulmonary disease, unspecified; D64.81 Anemia due to antineoplastic chemotherapy
CPT/HCPCS: 36415; 74019; 74176; 80048; 80053; 80069; 82607; 82728; 82746; 82962; 83036; 83540; 83550; 83735; 84100; 85025; 87177; 87209; 87493; 87506; 93005; 94640; 97161; 97165; 99282; J7030; J7040; A4216; J2405; J3490

== ENCOUNTER → 2018-03-10 11:47 | Outpatient (CLI) | payer MEDICARE, SELFPAY ==
--- NOTE | 2018-03-10 12:10 | RAD_ITS ---
STUDY: X-RAY CHEST REASON FOR EXAM: Female, 72 years old. Shortness of breath for 2 days. History of breast cancer. TECHNIQUE: PA and lateral chest COMPARISON: 10/28/2017 chest x-ray. FINDINGS: Left Mediport catheter with tip in mid SVC, stable. Clear bilateral lungs. Normal cardiomediastinal silhouette, rah and pleural margins. No acute osseous or upper abdominal process. Mild scoliosis. RAD/Chest PA and Lateral IMPRESSION: No acute cardiopulmonary process. Electronically Signed: Rayo Mac, at 13:07 EDT Tel , Service support ,
== END ==
PROVIDERS: Referring Provider Nurse Practitioner Family; Visit Provider Nurse Practitioner Family
DX: R05 Cough (principal); R06.09 Other forms of dyspnea
CPT/HCPCS: 71046

== ENCOUNTER → 2018-03-20 13:41 | Outpatient (CLI) | payer MEDICARE, SELFPAY ==
--- NOTE | 2018-03-20 13:46 | ECHODONC_ITS ---
Reason For Study: Pre Op Procedure This was a 2D Doppler, Color Flow transthoracic echocardiogram. Myocardial strain analysis was performed in this exam to aid in the assessment of cardiac function. The exam was of adequate technical quality. Exam performed in department. Left Ventricle Normal LV size. Apical false tendon noted. Left ventricular systolic function is normal. The estimated ejection fraction is 60 %. The global longitudinal strain = -20 % (normal). Diastolic function is indeterminate. No regional wall motion abnormalities noted. Right Ventricle Normal RV size. Normal systolic function. Atria The left atrium is mildly enlarged. Normal right atrium. No doppler evidence for ASD. Mitral Valve There is mild mitral annular calcification. Normal mitral valve. Mild (1+) mitral valve insufficiency. Tricuspid Valve Normal tricuspid valve. Trivial tricuspid valve insufficiency. Aortic Valve Trisinus/trileaflet aortic valve. Mild focal aortic valve thickening. Pulmonic Valve The pulmonic valve is not well visualized. Mild (1+) pulmonic valve insufficiency. Great Vessels Normal sized aortic root. Pericardium/Pleural No pericardial effusion. MMode/2D Measurements & Calculations LVIDd: 5.2 cm IVSd: 1.1 cm LVOT diam: 2.0 cm LVIDs: 3.4 cm LVPWd: 0.89 cm LVOT area: 3.1 cm2 RVDd: 3.6 cm FS: 33.9 % Ao root diam: 3.0 cm LAV(MOD-bp): 64.5 ml LVAd ap4: 24.1 cm2 LA dimension: 4.2 cm LAV(MOD-bp) Indexed: 35.9 ml/m2 EDV(MOD-sp4): 63.9 ml LAV(MOD-sp2): 54.1 ml EDV(sp4-el): 66.6 ml LAV(MOD-sp4): 68.4 ml LVAs ap4: 15.4 cm2 ESV(MOD-sp4): 32.7 ml ESV(sp4-el): 31.2 ml EF(MOD-sp4): 48.8 % EF(sp4-el): 53.1 % SV(MOD-sp4): 31.2 ml SV(sp4-el): 35.4 ml LA A4 area: 21.1 cm2 RA A4 area: 12.6 cm2 Time Measurements MV dec time: 0.23 sec Doppler Measurements & Calculations MV E max jefry: 131.6 cm/sec Lat Peak E' Jefry: 10.8 cm/sec Med Peak E' Jefry: 8.9 cm/sec MV A max jefry: 101.4 cm/sec E/E' lat: 12.2 E/E' med: 14.8 MV E/A: 1.3 MV V2 max: 130.7 cm/sec MV P1/2t max jefry: 130.7 cm/sec Ao V2 max: 145.6 cm/sec MV max P.8 mmHg MV P1/2t: 98.4 msec Ao max P.5 mmHg MV V2 mean: 76.0 cm/sec MV dec slope: 388.9 cm/sec2 Ao V2 mean: 102.5 cm/sec MV mean P.7 mmHg MVA(P1/2t): 2.2 cm2 Ao mean P.6 mmHg MV V2 VTI: 37.2 cm Ao V2 VTI: 34.2 cm MVA(VTI): 2.3 cm2 ALLAN(I,D): 2.5 cm2 ALLAN(V,D): 2.6 cm2 LV V1 max: 123.3 cm/sec SV(LVOT): 86.5 ml PA V2 max: 116.5 cm/sec LV V1 max P.1 mmHg LV V1 mean P.9 mmHg LV V1 mean: 80.3 cm/sec LV V1 VTI: 28.2 cm PI dec slope: 265.9 cm/sec2 Interpretation Summary Left ventricular systolic function is normal. The estimated ejection fraction is 60 %. The global longitudinal strain = -20 % (normal). The left atrium is mildly enlarged. There is mild mitral annular calcification. Mild (1+) mitral valve insufficiency. Trivial tricuspid valve insufficiency. Mild focal aortic valve thickening. Mild (1+) pulmonic valve insufficiency. Diastolic function is indeterminate. Ordering Physician: Eloise New Referring Physician: Eloise New Performed By: Brodwolf, Daryn, RCS
== END ==
PROVIDERS: Referring Provider Nurse Practitioner Family; Visit Provider Nurse Practitioner Family
DX: Z01.818 Encounter for other preprocedural examination (principal); C50.919 Malignant neoplasm of unspecified site of unspecified female breast; Z79.899 Other long term (current) drug therapy; Z51.81 Encounter for therapeutic drug level monitoring; Z92.21 Personal history of antineoplastic chemotherapy
CPT/HCPCS: 0399T; 93306

== ENCOUNTER → 2018-05-12 08:38 | Outpatient (CLI) | payer MEDICARE, SELFPAY ==
[2018-05-07 14:21] VITALS: BMI 27.6
--- NOTE | 2018-05-12 08:48 | BD_ITS ---
STUDY: DUAL ENERGY X-RAY ABSORPTIOMETRY / DXA REASON FOR EXAM: Female, 72 years old. The patient is postmenopausal. TECHNIQUE: Bone Mineral Density (BMD) measurements of lumbar spine and bilateral hips were obtained. COMPARISON: None. FINDINGS: Lumbar Spine (L1-L4): g/cm2 (1.180) / T-score (0.0) / Z-score (1.7) Findings are suggestive of normal bone density with a low fracture risk. Left Femur Total: g/cm2 (0.833) / T-score (-1.4) / Z-score (0.1) Left Femoral Neck: g/cm2 (0.720) / T-score (-2.3) / Z-score (-0.6) Right Femur Total: g/cm2 (0.833) / T-score (-1.4) / Z-score (0.1) Right Femoral Neck: g/cm2 (0.7-0) / T-score (-2.3) / Z-score (-0.6) BD/Dexa Bone Density Study IMPRESSION: The patient is considered osteopenic as outlined below according to World Isacc Organization (WHO) criteria with a high fracture risk. Reference Information: The T-score is the number of standard deviations above or below the standard which is normal for young adults at their peak bone mineral density. The World Health Organization (WHO) interprets the T-scores as follows: Above -1 Normal bone density Between -1 and -2.5 Osteopenia Equal to / or below -2.5 Osteoporosis As a practical clinical guideline, osteopenia may be graded as follows: Mild -1 through -1.5 Moderate -1.6 through -2.0 Severe -2.1 through -2.4 The Z-score is the number of standard deviations above or below age-matched controls. A Z-score of less than -1.5 would be considered abnormal. References: 1. NIH Osteoporosis and Related Bone Diseases http://www.osteo.org 2. International Society for Clinical Densitometry http://www.iscd.org 3. National Osteoporosis Foundation http://www.nof.org Electronically Signed: Chang Shepard MD at 14:45 EST Tel [phone], Service support ,
--- OUTSIDE RECORDS SUMMARY | 2018-06-28 07:00 | XMS RPT_ITS ---
:1945 Author Organization OHIP Support Name Relationship Address Phone [address] + [place] [address] R Unavailable Unavailable Unavailable SPRANG, STERLING Unavailable Unavailable + IDALIAAUDREYTHUSEAMUS Unavailable [address] + [place] [address] R Unavailable Unavailable Unavailable SPRANG, STERLING Unavailable Unavailable + [address] + [place] [address] R Unavailable Unavailable Unavailable SPRANG, STERLING Unavailable [address] + [place] [address] KOMISEAMUS ANDINO Unavailable [address] + [place] [address] R Unavailable Unavailable Unavailable SPRANG, STERLING Unavailable [address] + [place] [address] KOMISEAMUS ANDINO Unavailable [address] + [place] [address] R Unavailable Unavailable Unavailable SPRANG, STERLING Unavailable [address] + [place] [address] SEAMUS S[address] Un[address] + [place] [address] R Unavailable Unavailable Unavailable SPRANG, STERLING Unavailable [address] + [place] [address] SEAMUS S[address]H Un[address] + [place] [address] R Unavailable Unavailable Unavailable SPRANG, STERLING Unavailable [address] + [place] [address] + [place] [address] R Unavailable Unavailable Unavailable SPRANG, STERLING Unavailable [address] + [place] [address] KOMIVES, SEAMUS Unavailable [address] + [place] [address] R Unavailable Unavailable Unavailable SPRANG, STERLING Unavailable [address] + [place] [address] KOMIVES, CHRISTIAN Unavailable Unavailable Unavailable SPRANG, JAMES Unavailable Unavailable Unavailable SPRANG, NURYS Unavailable Unavailable Unavailable KOMIVES, CHRISTIAN Unavailable Unavailable Unavailable SPRANG, JAMES Unavailable Unavailable Unavailable SPRANG, NURYS Unavailable Unavailable Unavailable KOMIVES, CHRISTIAN Unavailable Unavailable Unavailable SPRANG, JAMES Unavailable Unavailable Unavailable SPRANG, NURYS Unavailable Unavailable Unavailable KOMIVES, SEAMUS Unavailable [address] + [place] [address] R Unavailable Unavailable Unavailable SPRANG, STERLING Unavailable [address] + [place] [address] KOMIVES, SEAMUS Unavailable [address] + [place] [address] R Unavailable Unavailable Unavailable SPRANG, STERLING Unavailable [address] + [place] [address] KOMIVES, SEAMUS Unavailable [address] + [place] [address] R Unavailable Unavailable Unavailable SPRANG, STERLING Unavailable [address] + [place] [address] KOMIVES, SEAMUS Unavailable [address] + [place] [address] R Unavailable Unavailable Unavailable SPRANG, STERLING Unavailable [address] + [place] [address] KOMIVES, CHRISTIAN Unavailable Unavailable Unavailable SPRANG, JAMES Unavailable Unavailable Unavailable SPRANG, NURYS Unavailable Unavailable Unavailable KOMIVES, CHRISTIAN Unavailable Unavailable Unavailable SPRANG, JAMES Unavailable Unavailable Unavailable SPRANG, NURYS Unavailable Unavailable Unavailable KOMIVES, CHRISTIAN Unavailable Unavailable Unavailable SPRANG, JAMES Unavailable Unavailable Unavailable SPRANG, NURYS Unavailable Unavailable Unavailable KOMIVES, CHRISTIAN Unavailable Unavailable Unavailable SPRANG, JAMES Unavailable Unavailable Unavailable SPRANG, NURYS Unavailable Unavailable Unavailable KOMIVES, CHRISTIAN Unavailable Unavailable Unavailable SPRANG, JAMES Unavailable Unavailable Unavailable SPRANG, NURYS Unavailable Unavailable Unavailable KOMIVES, CHRISTIAN Unavailable Unavailable Unavailable SPRANG, JAMES Unavailable Unavailable Unavailable SPRANG, NURYS Unavailable Unavailable Unavailable KOMIVES, SEAMUS Unavailable [address] + [place] [address] R Unavailable Unavailable Unavailable SPRANG, STERLING Unavailable [address] + [place] [address] KOMIVES, SEAMUS Unavailable [address] + [place] [address] R Unavailable Unavailable Unavailable SPRANG, STERLING Unavailable [address] + [place] [address] KOMIVES, CHRISTIAN Unavailable Unavailable Unavailable SPRANG, JAMES Unavailable Unavailable Unavailable SPRANG, NURYS Unavailable Unavailable Unavailable KOMIVES, CHRISTIAN Unavailable Unavailable Unavailable SPRANG, JAMES Unavailable Unavailable Unavailable SPRANG, NURYS Unavailable Unavailable Unavailable KOMIVES, CHRISTIAN Unavailable Unavailable Unavailable SPRANG, JAMES Unavailable Unavailable Unavailable SPRANG, NURYS Unavailable Unavailable Unavailable KOMIVES, CHRISTIAN Unavailable Unavailable Unavailable SPRANG, JAMES Unavailable Unavailable Unavailable SPRANG, NURYS Unavailable Unavailable Unavailable KOMIVES, SEAMUS Unavailable [address] + [place] [address] R Unavailable Unavailable Unavailable SPRANG, STERLING Unavailable [address] + [place] [address] KOMIVES, SEAMUS Unavailable [address] + [place] [address] R Unavailable Unavailable Unavailable SPRANG, STERLING Unavailable [address] + [place] [address] KOMIVES, SEAMUS Unavailable [address] + [place] [address] R Unavailable Unavailable Unavailable SPRANG, STERLING Unavailable [address] + [place] [address] KOMIVES, CHRISTIAN Unavailable Unavailable Unavailable SPRANG, JAMES Unavailable Unavailable Unavailable SPRANG, NURYS Unavailable Unavailable Unavailable KOMIVES, CHRISTIAN Unavailable Unavailable Unavailable SPRANG, JAMES Unavailable Unavailable Unavailable SPRANG, NURYS Unavailable Unavailable Unavailable KOMIVES, CHRISTIAN Unavailable Unavailable Unavailable SPRANG, JAMES Unavailable Unavailable Unavailable SPRANG, NURYS Unavailable Unavailable Unavailable KOMIVES, SEAMUS Unavailable [address] + [place] [address] R Unavailable Unavailable Unavailable SPRANG, STERLING Unavailable [address] + [place] [address] KOMIVES, SEAMUS Unavailable [address] + [place] [address] R Unavailable Unavailable Unavailable SPRANG, STERLING Unavailable [address] + [place] [address] KOMIVES, SEAMUS Unavailable [address] + [place] [address] R Unavailable Unavailable Unavailable SPRANG, STERLING Unavailable [address] + [place] [address] KOMIVES, SEAMUS Unavailable [address] + [place] [address] R Unavailable Unavailable Unavailable SPRANG, STERLING Unavailable [address] + [place] [address] KOMIVES, SEAMUS Unavailable [address] + [place] [address] R Unavailable Unavailable Unavailable SPRANG, STERLING Unavailable [address] + [place] [address] KOMIVES, SEAMUS Unavailable [address] + [place] [address] R Unavailable Unavailable Unavailable SPRANG, STERLING Unavailable [address] + [place] [address] KOMIVES, SEAMUS Unavailable [address] + [place] [address] R Unavailable Unavailable Unavailable SPRANG, STERLING Unavailable [address] + [place] [address] KOMIVES, SEAMUS Unavailable [address] + [place] [address] R Unavailable Unavailable Unavailable SPRANG, STERLING Unavailable [address] + [place] [address] KOMIVES, SEAMUS Unavailable [address] + [place] [address] R Unavailable Unavailable Unavailable SPRANG, STERLING Unavailable [address] + [place] [address] KOMIVES, SEAMUS Unavailable [address] + [place] [address] R Unavailable Unavailable Unavailable SPRANG, STERLING Unavailable [address] + [place] [address] KOMIVES, SEAMUS Unavailable Unavailable + R Unavailable Unavailable Unavailable SPRANG, STERLING Unavailable Unavailable + KOMIVES, SEAMUS Unavailable [address] + [place] [address] R Unavailable Unavailable Unavailable SPRANG, STERLING Unavailable [facility] + [place] [address] KOMIVES, SEAMUS Unavailable [address] + [place] [address] R Unavailable Unavailable Unavailable SPRANG, STERLING Unavailable [facility] + [place] [address] KOMIVES, SEAMUS Unavailable Unavailable + R Unavailable Unavailable Unavailable SPRANG, STERLING Unavailable Unavailable + KOMIVES, SEAMUS Unavailable Unavailable + R Unavailable Unavailable Unavailable SPRANG, STERLING Unavailable Unavailable + KOMIVES, SEAMUS Unavailable Unavailable + R Unavailable Unavailable Unavailable SPRANG, STERLING Unavailable Unavailable + KOMIVES, SEAMUS Unavailable Unavailable + R Unavailable Unavailable Unavailable SPRANG, STERLING Unavailable Unavailable + KOMIVES CHRISTIAN Unavailable Unavailable Unavailable SPRANG, JAMES Unavailable Unavailable Unavailable SPRANG, NURYS Unavailable Unavailable Unavailable KOMIVES, SEAMUS Unavailable . + [place] [address] R Unavailable Unavailable Unavailable SPRANG, STERLING Unavailable . + [place] [address] KOMIVES, SEAMUS Unavailable . + [place] [address] R Unavailable Unavailable Unavailable SPRANG, STERLING Unavailable . + [place] [address] KOMIVES, SEAMUS Unavailable . + [place] [address] R Unavailable Unavailable Unavailable SPRANG, STERLING Unavailable . + [place] [address] KOMIVES, SEAMUS Unavailable . + [place] [address] R Unavailable Unavailable Unavailable SPRANG, STERLING Unavailable . + [place] [address] KOMIVES, SEAMUS Unavailable . + [place] [address] R Unavailable Unavailable Unavailable SPRANG, STERLING Unavailable . + [place] [address] KOMIVES, SEAMUS Unavailable . + [place] [address] R Unavailable Unavailable Unavailable SPRANG, STERLING Unavailable . + [place] [address] KOMIVES, SEAMUS Unavailable . + [place] [address] R Unavailable Unavailable Unavailable SPRANG, STERLING Unavailable . + [place] [address] KOMIVES, SEAMUS Unavailable Unavailable + R Unavailable Unavailable Unavailable SPRANG, STERLING Unavailable Unavailable + KOMIVES, SEAMUS Unavailable Unavailable + R Unavailable Unavailable Unavailable SPRANG, STERLING Unavailable Unavailable + KOMIVES, SEAMUS Unavailable Unavailable + R Unavailable Unavailable Unavailable SPRANG, STERLING Unavailable Unavailable + KOMIVES, SEAMUS Unavailable Unavailable + R Unavailable Unavailable Unavailable SPRANG, STERLING Unavailable Unavailable + KOMIVES, SEAMUS Unavailable Unavailable + R Unavailable Unavailable Unavailable SPRANG, STERLING Unavailable Unavailable + KOMIVES, SEAMUS Unavailable . + ., [place] . [place] Unavailable Unavailable Unavailable SPRANG, STERL[place] Unavailable . + ., [place] . KOMIVES, SEAMUS Unavailable . + ., [place] . [place] Unavailable Unavailable Unavailable SPRANG, STERLING Unavailable . + ., [place] . KOMIVES, CHRISTIAN Unavailable Unavailable Unavailable SPRANG, JAMES Unavailable Unavailable Unavailable SPRANG, NURYS Unavailable Unavailable Unavailable KOMIVES, CHRISTIAN Unavailable Unavailable Unavailable SPRANG, JAMES Unavailable Unavailable Unavailable SPRANG, NURYS Unavailable Unavailable Unavailable KOMIVES, CHRISTIAN Unavailable Unavailable Unavailable SPRANG, JAMES Unavailable Unavailable Unavailable SPRANG, NURYS Unavailable Unavailable Unavailable KOMIVES, CHRISTIAN Unavailable Unavailable Unavailable SPRANG, JAMES Unavailable Unavailable Unavailable SPRANG, NURYS Unavailable Unavailable Unavailable KOMIVES, CHRISTIAN Unavailable Unavailable Unavailable SPRANG, JAMES Unavailable Unavailable Unavailable SPRANG, NURYS Unavailable Unavailable Unavailable KOMIVES, CHRISTIAN Unavailable Unavailable Unavailable SPRANG, JAMES Unavailable Unavailable Unavailable SPRANG, NRUYS Unavailable Unavailable Unavailable KOMIVES, CHRISTIAN Unavailable Unavailable Unavailable SPRANG, JAMES Unavailable Unavailable Unavailable SPRANG, NURYS Unavailable Unavailable Unavailable KOMIVES, CHRISTIAN Unavailable Unavailable Unavailable SPRANG, JAMES Unavailable Unavailable Unavailable SPRANG, NURYS Unavailable Unavailable Unavailable KOMIVES, CHRISTIAN Unavailable Unavailable Unavailable SPRANG, JAMES Unavailable Unavailable Unavailable SPRANG, NURYS Unavailable Unavailable Unavailable KOMIVES, CHRISTIAN Unavailable Unavailable Unavailable SPRANG, JAMES Unavailable Unavailable Unavailable SPRANG, NURYS Unavailable Unavailable Unavailable KOMIVES, CHRISTIAN Unavailable Unavailable Unavailable SPRANG, JAMES Unavailable Unavailable Unavailable SPRANG, NURYS Unavailable Unavailable Unavailable KOMIVES, CHRISTIAN Unavailable Unavailable Unavailable SPRANG, JAMES Unavailable Unavailable Unavailable SPRANG, NURYS Unavailable Unavailable Unavailable KOMIVES, CHRISTIAN Unavailable Unavailable Unavailable SPRANG, JAMES Unavailable Unavailable Unavailable SPRANG, NURYS Unavailable Unavailable Unavailable KOMIVES, CHRISTIAN Unavailable Unavailable Unavailable SPRANG, JAMES Unavailable Unavailable Unavailable SPRANG, NURYS Unavailable Unavailable Unavailable KOMIVES, CHRISTIAN Unavailable Unavailable Unavailable SPRANG, JAMES Unavailable Unavailable Unavailable SPRANG, NURYS Unavailable Unavailable Unavailable KOMIVES, CHRISTIAN Unavailable Unavailable Unavailable SPRANG, JAMES Unavailable Unavailable Unavailable SPRANG, NURYS Unavailable Unavailable Unavailable SPRANG, NURYS Unavailable Unavailable Unavailable KOMIVES, CHRISTIAN Unavailable Unavailable Unavailable SPRANG, JAMES Unavailable Unavailable Unavailable SPRANG, NURYS Unavailable Unavailable Unavailable KOMIVES, CHRISTIAN Unavailable Unavailable Unavailable SPRANG, JAMES Unavailable Unavailable Unavailable SPRANG, NURYS Unavailable Unavailable Unavailable KOMIVES, CHRISTIAN Unavailable Unavailable Unavailable SPRANG, JAMES Unavailable Unavailable Unavailable SPRANG, NURYS Unavailable Unavailable Unavailable KOMIVES, CHRISTIAN Unavailable Unavailable Unavailable SPRANG, JAMES Unavailable Unavailable Unavailable SPRANG, NURYS Unavailable Unavailable Unavailable Care Team Providers Name Role Phone Ignacio Hoyt Attending Unavailable ASHER, THERES Primary Care Unavailable Ignacio Hoyt Attending Unavailable ASHER, JAGDISHS Referring Unavailable ASHER, THERES Primary Care Unavailable PraIgnacio mcerloy Consulting Unavailable Shaq, Eloise Attending Unavailable ASHER, THERES Primary Care Unavailable Pralilibeth, Ignacio Consulting Unavailable Pralilibeth, Ignacio Referring Unavailable Shaq, Eloise Attending Unavailable ASHER, JAGDISHS Referring Unavailable ASHER, THERES Primary Care Unavailable PraIgnacio mcelroy Consulting Unavailable Shaq, Eloise Attending Unavailable Shaq, Eloise Referring Unavailable ASHER, THERES Primary Care Unavailable Shaq, Eloise Attending Unavailable ASHER, THERES Referring Unavailable ASHER, THERES Primary Care Unavailable Prah, Ignacio Consulting Unavailable Shaq, Eloise Attending Unavailable ASHER, THERES Referring Unavailable ASHER, THERES Primary Care Unavailable Prah, Ignacio Consulting Unavailable Prah, Ignacio Attending Unavailable ASHER, THERES Referring Unavailable ASHER, THERES Primary Care Unavailable Prah, Ignacio Consulting Unavailable Shaq, Eloise Attending Unavailable ASHER, THERES Referring Unavailable ASHER, THERES Primary Care Unavailable Prah, Ignacio Consulting Unavailable Calabretta Laith Attending Unavailable ASHER, THERES Referring Unavailable Alford PA-C, Spring Attending Unavailable ASHER, THERES Referring Unavailable ASHER, THERES Primary Care Unavailable Alford PA-C, Spring Attending Unavailable ASHER, THERES Referring Unavailable ASHER, THERES Primary Care Unavailable Shaq, Eloise Attending Unavailable ASHER, THERES Referring Unavailable ASHER, THERES Primary Care Unavailable Prah, Ignacio Consulting Unavailable Prah Ignacio Attending Unavailable ASHER, THERES Referring Unavailable ASHER, THERES Primary Care Unavailable Prah, Ignacio Consulting Unavailable Calabrsabra, Laith Attending Unavailable Calabretta, Laith Referring Unavailable ASHER, THERES Primary Care Unavailable CalabrCory montañoony Consulting Unavailable Calabretta, Laith Attending Unavailable Calabretta, Laith Referring Unavailable ASHER, THERES Primary Care Unavailable PrahIgnacio Attending Unavailable ASHER, THERES Primary Care Unavailable Prah, Ignacio Consulting Unavailable Laith English Attending Unavailable Prah, Ignacio Referring Unavailable ASHER, THERES Primary Care Unavailable PrahIgnacio Attending Unavailable Prah, Ignacio Referring Unavailable ASHER, THERES Primary Care Unavailable Arvind Wills Attending Unavailable ASHER, THERES Referring Unavailable ASHER, THERES Primary Care Unavailable Prah, Ignacio Consulting Unavailable Arvind Wills Attending Unavailable ASHER, THERES Referring Unavailable ASHER, THERES Primary Care Unavailable Prah, Ignacio Consulting Unavailable Arvind Wills Attending Unavailable Arvind Wills Referring Unavailable PrahIgnacio Attending Unavailable ASHER, THERES Referring Unavailable ASHER, THERES Primary Care Unavailable Prah, Ignacio Consulting Unavailable Arvind Wills Attending Unavailable ASHER, THERES Referring Unavailable ASHER, THERES Primary Care Unavailable Prah, Ignacio Consulting Unavailable Arvind Wills Attending Unavailable Elma, Arvind Referring Unavailable Prah, Ignacio Attending Unavailable ASHER, THERES Primary Care Unavailable ASHER, THERES Referring Unavailable Feliciano Herzog Attending Unavailable Elma, Arvind Attending Unavailable Elma, Arvind Attending Unavailable Elma, Arvind Referring Unavailable Prah, Ignacio Attending Unavailable ASHER, THERES Referring Unavailable ASHER, THERES Primary Care Unavailable Prah, Ignacio Consulting Unavailable Sridhar Willse Attending Unavailable ASHER, THERES Referring Unavailable ASHER, THERES Primary Care Unavailable Prah, Ignacio Consulting Unavailable White, Lindsay Admitting Unavailable White, Lindsay Attending Unavailable Asher, Andrei Primary Care Unavailable White, Lindsay Consulting Unavailable Asher, Andrei Primary Care Unavailable White, Lindsay Admitting Unavailable Prah, Ignacio Consulting Unavailable Olehebere, Ifijen Attending Unavailable Isckarus, Mansour Consulting Unavailable Srikanth, Killian Consulting Unavailable Prah, Ignacio Attending Unavailable ASHER, THERE Primary Care Unavailable Prah, Ignacio Attending Unavailable ASHER, THERES Referring Unavailable ASHER, THERES Primary Care Unavailable Pralilibeth, Ignacio Consulting Unavailable Dalton Toscano Attending Unavailable Shaq, Eloise Referring Unavailable Prah, Ignacio Attending Unavailable ASHER, THERES Referring Unavailable ASHER, THERES Primary Care Unavailable Prah, Ignacio Consulting Unavailable Shaq, Eloise Attending Unavailable ASHER, THERES Primary Care Unavailable Pralilibeth, Ignacio Consulting Unavailable Lai, Ignacio Referring Unavailable Dalton Toscano Attending Unavailable Shaq, Eloise Referring Unavailable Shaq, Eloise Attending Unavailable Shaq, Eloise Referring Unavailable ASHER, THERES Primary Care Unavailable PAMELLA GRAHAM Consulting Unavailable Shaq, Eloise Attending Unavailable ASHER, THERES Referring Unavailable ASHER, THERES Primary Care Unavailable Prah, Ignacio Consulting Unavailable Shaq, Eloise Attending Unavailable Shaq, Eloise Referring Unavailable ASHER, THERES Primary Care Unavailable Prah, Ignacio Attending Unavailable ASHER, THERES Referring Unavailable ASHER, THERES Primary Care Unavailable Prah, Ignacio Consulting Unavailable White, Lindsay Admitting Unavailable [facility] Andrei Primary Care Unavailable Prah, Ignacio Consulting Unavailable Zaira Hartman Attending Unavailable Isckarus, Mansour Consulting Unavailable Srikanth, Killian Consulting Unavailable Oleghe, Ifijen Consulting Unavailable White, Lindsay Admitting Unavailable Spring Alford PA-C Attending Unavailable [facility] Primary Care Unavailable Prah, Ignacio Consulting Unavailable Isckarus, Mansour Consulting Unavailable Ashby, Killian Consulting Unavailable Oleghe, Ifijen Consulting Unavailable SementiZaira Attending Unavailable White, Lindsay Admitting Unavailable AsherAndrei castillo Primary Care Unavailable Prah, Ignacio Consulting Unavailable Isckarus, Mansour Consulting Unavailable Ashby, Killian Consulting Unavailable Oleghe, Ifijen Consulting Unavailable White, Lindsay Admitting Unavailable SrikanthMooel Attending Unavailable [facility] Andrei Primary Care Unavailable Prah, Ignacio Consulting Unavailable Isckarus, Mansour Consulting Unavailable Srikanth, Killian Consulting Unavailable Oleghe, Ifijen Consulting Unavailable Sementi, Zaira Attending Unavailable White, Lindsay Admitting Unavailable AsherAndrei Primary Care Unavailable Prah, Ignacio Consulting Unavailable Isckarus, Mansour Consulting Unavailable Ashby, Killian Consulting Unavailable Oleghe, Ifijen Consulting Unavailable White, Lindsay Admitting Unavailable Ashby, Killian Attending Unavailable AsherAndrei [facility] Care Unavailable Prah, Ignacio Consulting Unavailable Isckarus, Mansour Consulting Unavailable Srikanth, Killian Consulting Unavailable Oleghe, Ifijen Consulting Unavailable SementiZaira Attending Unavailable White, Lindsay Admitting Unavailable AsherAndrei [facility] Care Unavailable Prah, Ignacio Consulting Unavailable Isckarus, Mansour Consulting Unavailable Oleghe, Ifijen Consulting Unavailable ChaitanyaerLobito Admitting Unavailable Lobito Avendano Attending Unavailable Lobito Avendano Primary Care Unavailable HelediserLobito Admitting Unavailable Lobito Avendano Attending Unavailable Lobito Avendano Primary Care Unavailable Lobito Avendano Primary Care Unavailable Andrei Asher Admitting Unavailable Andrei Asher Attending Unavailable CashMing lao Consulting Unavailable Lobito Avendano Primary Care Unavailable Religion, Genia Admitting Unavailable Religion, Genia Attending Unavailable RUBY GORE Attending Unavailable RUBY GORE Referring Unavailable ANDREI ASHER Primary Care Unavailable THOMAS VALENTIN Attending Unavailable ANDREI ASHER Referring Unavailable ANDREI ASHER Primary Care Unavailable KEV JIMENEZ Attending Unavailable SELF, SELF Referring Unavailable ANDREI ASHER Primary Care Unavailable THOMAS VALENTIN Attending Unavailable THOMAS VALENTIN Referring Unavailable THOMAS VALENTIN Attending Unavailable THOMAS VALENTIN Referring Unavailable THOMAS VALENTIN Attending Unavailable THOMAS VALENTIN Referring Unavailable HOMERO, THOMAS Lazaro Attending Unavailable THOMAS VALENTIN Referring Unavailable HOMEROTOHMAS Attending Unavailable RUBY GORE Referring Unavailable ANDREI ASHER Primary Care Unavailable HOMERO, THOMAS Lazaro Attending Unavailable REBEL SAEZ Referring Unavailable ANDREI ASHER Primary Care Unavailable HOMERO, THOMAS Lazaro Attending Unavailable RUBY GORE Referring Unavailable ANDREI ASHER Primary Care Unavailable REINBOLT, KEV E Attending Unavailable REINBOLT, KEV E Referring Unavailable ANDREI ASHER Primary Care Unavailable REINBOLT, KEV E Attending Unavailable REINBOLT, KEV E Referring Unavailable ANDREI ASHER Primary Care Unavailable REINBOLT, KEV E Attending Unavailable REINBOLT, KEV E Referring Unavailable ANDREI ASHER Primary Care Unavailable REINBOLT, KEV E Attending Unavailable REINBOLT, KEV E Referring Unavailable ANDREI ASHER Primary Care Unavailable HOMEROTHOMAS Attending Unavailable ANDREI ASHER Referring Unavailable ANDREI ASHER Primary Care Unavailable FERN SKINNER Attending Unavailable REINBOLT, KEV E Referring Unavailable ANDREI ASHER Primary Care Unavailable ANA M VILLEDA Attending Unavailable JON FLORES Referring Unavailable ANDREI ASHER Primary Care Unavailable SUNNY HERNANDEZ Attending Unavailable RAY TROTTER Referring Unavailable ANDREI ASHER Primary Care Unavailable SUNNY HERNANDEZ Attending Unavailable SUNNY HERNANDEZ Referring Unavailable ANDREI ASHER Primary Care Unavailable ELROY BUENO Attending Unavailable RUBY GORE Referring Unavailable ANDREI ASHER Primary Care Unavailable SOBIABOLT, KEV Osorio Attending Unavailable ELROY BUENO Referring Unavailable ANDREI ASHER Primary Care Unavailable HOMEROTHOMAS Attending Unavailable ANDREI ASHER Referring Unavailable ANDREI ASHER Primary Care Unavailable HOMEROTHOMAS SNIDER Attending Unavailable THOMAS VALENTIN Referring Unavailable ANDREI ASHER Primary Care Unavailable HOMEROTHOMAS SNIDER Attending Unavailable THOMAS VALENTIN Referring Unavailable ANDREI ASHER Primary Care Unavailable THOMAS VALENTIN Attending Unavailable THOMAS VALENTIN Referring Unavailable ANDREI ASHER Primary Care Unavailable HOMEROTHOMAS SNIDER Admitting Unavailable HOMEROTHOMAS Ling Attending Unavailable TARA, ANDREI L Referring Unavailable ASHER, ANDREI L Primary Care Unavailable HOMERO, THOMAS Lazaro Attending Unavailable ASHER, ANDREI L Referring Unavailable ASHER, ANDREI L Primary Care Unavailable HOMERO, THOMAS Lazaro Attending Unavailable CONFUCIANIST, GENIA Referring Unavailable ASHER, ANDREI L Primary Care Unavailable HOMERO, THOMAS Lazaro Attending Unavailable CONFUCIANIST, GENIA Referring Unavailable ASHER, ANDREI L Primary Care Unavailable HOMERO, THOMAS Lazaro Attending Unavailable CONFUCIANIST, GENIA Referring Unavailable ASHER, ANDREI L Primary Care Unavailable HOMERO, THOMAS Lazaro Attending Unavailable ASHER, ANDREI L Referring Unavailable ASHER, ANDREI L Primary Care Unavailable HOMERO, THOMAS Lazaro Attending Unavailable ASHER, ANDREI L Referring Unavailable ASHER, ANDREI L Primary Care Unavailable HOMERO, THOMAS Lazaro Attending Unavailable ASHER, ANDREI L Referring Unavailable ASHER, ANDREI L Primary Care Unavailable HOMERO, THOMAS Lazaro Attending Unavailable ASHER, ANDREI L Referring Unavailable ASHER, ANDREI L Primary Care Unavailable HOMERO, THOMAS Lazaro Attending Unavailable HOMERO, THOMAS Lazaro Referring Unavailable ASHER, ANDREI L Primary Care Unavailable HOMERO, THOMAS Lazaro Attending Unavailable HOMERO, THOMAS Lazaro Referring Unavailable ASHER, ANDREI L Primary Care Unavailable HOMERO, THOMAS Lazaro Attending Unavailable ASHER, ANDREI L Referring Unavailable ASHER, ANDREI L Primary Care Unavailable HOMERO, THOMAS Lazaro Referring Unavailable ASHER, ANDREI L Primary Care Unavailable HOMERO, THOMAS Lazaro Attending Unavailable PROBLEMS PROBLEMS DATE TYPE CONDITION / CODE ATTENDING STATUS SOURCE 06/23/2018 Unknown C50.411 - Malignant JarrodIgnacio mcelroy Active [facility] neoplasm of [facility] of right female Repository breast / C50.411(ICD-10) 06/04/2018 Unknown Z79.899 - Other long JarrodIgnacio mcelroy Active [place] term (current) drug Community therapy / Hospital Z79.899(ICD-10) Repository 06/04/2018 Unknown C50.911 - Malignant JarrodIgnacio mcelroy Active [facility] neoplasm of Community unspecified site of Hospital right female breast Repository / C50.911(ICD-10) 05/19/2018 Admitting Malignant neoplasm HOMERO, Active [facility] diagnosis of overlapping sites THOMAS Lazaro [facility] breast / Center C50.811(ICD-10) Repository 05/19/2018 Admitting Lymphedema, not HOMERO, Active [place] [facility] diagnosis elsewhere classified [facility] / I89.0(ICD-10) [facility] Repository 05/19/2018 Admitting Counseling, HOMERO, Active 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 diagnosis positive status [facility] (ER+) / [facility] Z17.0(ICD-10) Center Repository 03/12/2018 Admitting Encounter for other HOMERO, Active [facility] diagnosis preprocedural [facility] examination / [facility] Z01.818(ICD-10) Center Repository 03/12/2018 Admitting Personal history of HOMERO, Active [place] [facility] diagnosis antineoplastic [facility] chemotherapy / [facility] Z92.21(ICD-10) Center Repository 03/17/2018 Unknown R05 - Cough / Shaq, Active [facility] R05(ICD-10) [facility] Hospital Repository 03/17/2018 Unknown R06.09 - Other forms Shaq, Active [place] of dyspnea / [place] [facility] R06.09(ICD-10) Hospital Repository 03/17/2018 Unknown J44.1 - Chronic Shaq, Active [facility] obstructive [facility] pulmonary disease Hospital with (acute) Repository exacerbation / J44.1(ICD-10) 02/19/2018 Admitting Malignant neoplasm HOMERO, Active [place] [facility] diagnosis of unspecified site [facility] of right female [facility] breast / Center C50.911(ICD-10) Repository 02/19/2018 Admitting Secondary and HOMERO, Active [place] [facility] diagnosis unspecified [facility] malignant neoplasm [facility] of axilla and upper Center limb lymph nodes / Repository C77.3(ICD-10) 02/10/2018 Unknown C50.919 - Malignant Shaq, Active [place] neoplasm of [place] Community unspecified site of Hospital unspecified female Repository breast / C50.919(ICD-10) 12/22/2017 Unknown Z51.81 - Encounter Shaq, Active [facility] for therapeutic drug [place] Community level monitoring / Hospital Z51.81(ICD-10) Repository 12/01/2017 Unknown D70.1 - Ignacio Hoyt Active [facility] Agranulocytosis Community secondary to cancer Hospital chemotherapy / Repository D70.1(ICD-10) 10/28/2017 Unknown Z01.818 - Encounter Ignacio Hoyt Active [place] for other Community preprocedural Hospital examination / Repository Z01.818(ICD-10) 10/09/2017 Admitting New Patient / [facility], Active [facility] diagnosis [id number] [facility] Repository 09/08/2017 Admitting Neoplasm of REINBOLT, Active [facility] diagnosis unspecified behavior [facility] / [facility] D49.3(ICD-10) Center Repository 09/02/2017 Admitting Other abnormal and HOMERO, Active [facility] diagnosis inconclusive [facility] findings on [facility] diagnostic imaging Center of breast / Repository R92.8(ICD-10) PROCEDURES PROCEDURES No Procedure Records FoundRESULTS RESULTS RADIATION ONCOLOGY Observed: 06/17/2018 Status: F Source: DODGE VISIT 11:49 AM [facility] REPOSITORY [facility] [address] [place] [address] OFFICE VISIT Date of Service: 06/17/18 1145 MR#: [id number] Acct: [id number] Name: NURYS DIAZ Rep #: [id number] : 1945 From: Arvind Wills DO Age/Sex: 72/F Location: [facility] Status: Signed Date of Service: 06/17/18 Diagnosis: Nurys Diaz is a 72 year-old female diagnosed with (cT2 N1 (fn) M0, ypT1c ypN1mi) grade 2 invasive ductal carcinoma (ER >95%, NM 21%, Her2 3+ IHC) of the right breast status post neoadjuvant chemotherapy consisting of TCH + P x 6 cycles (11/10/2017 - 02/24/18) and modified radical mastectomy (03/25/18). Plan was made to treat with adjuvant radiation therapy to the right chest wall and undissected regional lymph nodes consisting of 5000 cGy delivered in 25 fractions. Treatment Data: Treatment Site: Right chestwall and regional LNs Current total dose/Total dose planned: 2400 cGy / 5000 cGy Fraction number: Chemotherapy: none concurrent Subjective: Tolerating therapy well overall Skin: mild erythema, no desquamation or rash Fatigue: mild, occasional nap Swallowing: no dysphagia or odynophagia Resp: stable cough and reduced smoking Lymphedema: wearing sleeve during the day, receives lymphedema treatment in [place] Nausea: occasional since starting tamoxifen, prn zofran Height/Weight/BMI: Height: 5 ft 4 in Weight: 72.212 kg Vital Signs Temperature 98.7 F 06/17/18 11:39 Temperature Source Oral 06/17/18 11:39 Pulse Rate 76 06/17/18 11:39 Respiratory Rate 16 06/17/18 11:39 Blood Pressure 92/70 06/17/18 11:39 BP a little low today but asymptomatic Objective: Gen: NAD Skin: faint erythema involving right CW. No desquamation or rash. Well healed mastectomy scar without dehiscence Assessment: Tolerating therapy well overall. All treatment related imaging reviewed and approved Fatigue: grade 1 Skin: Faint erythema BP decreased today, eating and drinking well, no BP meds, asymptomatic. Will recheck tomorrow. Plan: Continue treatment as planned Skin: discussed skin care instructions, Remedy bid Fatigue: discussed nutrition, good sleep hygiene at night, staying active during the day Lymphedema: mild at baseline prior to RT, wearing sleeve and getting treatment. Was referred locally from lymphedema clinic at [facility] patient to discuss nausea with med onc tomorrow continue zofran for now (very mild and rarely taking) Follow up next week or sooner if needed Thank you for allowing me to participate in the management and care of your patient. If I may answer any questions in the interim, please do not hesitate to contact me at any time. Arvind Wills DO, MS Heel Compressor, Department of Radiation Oncology [facility] 06/17/18 1149 <Electronically signed by Arvind Wills DO> Date Arvind Wills DO Cosigner Signature: Date (if applicable) CC: RADIATION ONCOLOGY Observed: 06/10/2018 Status: F Source: DODGE VISIT 11:12 AM [facility] Medical Oncology [facility] [place] [address] OFFICE VISIT Date of Service: 06/10/18 1109 MR#: [id number] Acct: [id number] Name: NURYS DIAZ Rep #: [id number] : 1945 From: Arvind Wills DO Age/Sex: 72/F Location: [facility] Status: Signed Date of Service: 06/10/18 Diagnosis: Nurys Diaz is a 72 year-old female diagnosed with (cT2 N1 (fn) M0, ypT1c ypN1mi) grade 2 invasive ductal carcinoma (ER >95%, NM 21%, Her2 3+ IHC) of the right breast status post neoadjuvant chemotherapy consisting of TCH + P x 6 cycles (11/10/2017 - 02/24/18) and modified radical mastectomy (03/25/18). Plan was made to treat with adjuvant radiation therapy to the right chest wall and undissected regional lymph nodes consisting of 5000 cGy delivered in 25 fractions. Treatment Data: Treatment Site: Right chestwall and regional LNs Current total dose/Total dose planned: 1400 cGy / 5000 cGy Fraction number: Chemotherapy: none concurrent Subjective: Tolerating therapy well overall Skin: no erythema, desquamation, or rash Fatigue: mild, occasional nap Swallowing: no dysphagia or odynophagia Resp: stable cough and reduced smoking Lymphedema: wearing sleeve during the day, receives lymphedema treatment in [place] Height/Weight/BMI: Height: 5 ft 4 in Weight: 72.212 kg Vital Signs Temperature 98.2 F 06/10/18 10:53 Temperature Source Oral 06/10/18 10:53 Pulse Rate 79 06/10/18 10:53 Respiratory Rate 16 06/10/18 10:53 Blood Pressure 113/54 L 06/10/18 10:53 Objective: Gen: NAD Skin: no erythema, desquamation, or rash. Well healed mastectomy scar without dehiscence Assessment: Tolerating therapy well overall. All treatment related imaging reviewed and approved Fatigue: grade 1 Plan: Continue treatment as planned Skin: discussed skin care instructions, Remedy Fatigue: discussed nutrition, good sleep hygiene at night, staying active during the day Lymphedema: mild at baseline prior to RT, wearing sleeve and getting treatment. Was referred locally from lymphedema clinic at [facility] Follow up next week or sooner if needed Thank you for allowing me to participate in the management and care of your patient. If I may answer any questions in the interim, please do not hesitate to contact me at any time. Arvind Wills DO, MS Heel Compressor, Department of Radiation Oncology [facility] 06/10/18 1112 <Electronically signed by Arvind Wills DO> Date Arvind Elizaldeign Signature: Date (if applicable) CC: ONCOLOGY VISIT REPORT Observed: 06/04/2018 Status: F Source: MAE 11:01 AM [facility] Oncology [address] [place] [address] OFFICE VISIT Date of Service: 06/04/18 1051 MR#: [id number] Acct: [id number] Name: NURYS DIAZ Rep #: [id number] : 1945 From: Ignacio Hoyt MD Age/Sex: 72/F Location: [facility] Status: Signed Subjective - Date of Service Date of Service:: 06/04/18 - Chief Complaint F/U for adjuvant therapy of R breast cancer. - History of Present Illness 72-year-old woman noticed a right breast mass in July 2017, ultrasound/mammogram on 08/13/2017 showed irregular spiculated solid mass at 9 o'clock position measuring 2.5 cm in addition to enlarged lymph nodes in the axilla. She had right breast and axillary lymph node biopsy on August 27, 2017 which showed right breast invasive ductal carcinoma, and metastatic disease in Right Axillary lymph node, ER/NM positive, Her2 3+ positive. She was seen at [facility] by Dr. Jimenez, declined chemotherapy. CT chest/abdomen/pelvis showed right breast nodules with multiple right axillary lymph nodes, no murmurs pulmonary nodules, atherosclerotic disease with coronary calcifications, pulmonary hypertension, and emphysematous changes. There was no evidence of metastatic disease in abdomen or pelvis. She had CT-guided needle biopsy of lung nodule on 09/25/2017, Pathology showed pulmonary Langerhans cell histiocytosis. She had a change of heart and now willing to consider neoadjuvant chemotherapy with Her2 targeted therapy and has elected to do it in [facility]. Port placed 10/28/[address] English and MUGA scan obtained 10/24/2017 showed EF 59%. She started therapy with TCH+P on 11/10/2017. Received C5D1 on 02/03/2018. She developed nausea/vomiting and watery diarrhea on 02/08/2018. Evaluated in clinic on 02/09/18, supported with IVFs. Stool negative for C diff on 02/09/18. Diarrhea continued so was admitted to Hospital from 02/12/2018 to 02/16/2018. Received cycle 6 on 02/24/18, Taxotere and carboplatin reduced because of diarrhea requiring admission. She have R MRM and axillary dissection at [facility] on 03/25/2018. Pathology showed residual Invasive ductal carcinoma with treatment effects, tumor size 1.8cm, Lymph nodes 06/28 positive. Pathologic staging ypT1c ypN1mi. She started adjuvant therapy with Perjeta, Herceptin and hormonal therapy on 05/14/2018. Comes for 2nd maintenance therapy. Gets diarrhea 1-2 times a week, resolves with Imodium. - Past Medical/Social History Past Medical History Cancer: Breast cancer Social History Social History: No changes Smoking Status Current every day smoker Review of Systems Constitutional:: Denies: Fever, Sweats, Weight loss, Appetite change, Chills Cardiovascular:: Denies: Chest pain, Palpitations, Dyspnea on exertion, Orthopnea, PND, Shortness of breath Respiratory: Denies: Cough, Hemoptysis, Shortness of Breath, Wheezing Gastrointestinal:: Denies: Abdominal pain, Nausea, Vomiting, Diarrhea, Constipation, Hematochezia Genitourinary: Denies: Dysuria, Hematuria, 15, Flank pain Musculoskeletal:: Denies: Back pain, Myalgia, Arthralgia Skin: Denies: Rash, Skin Changes, Wounds Neurological:: Denies: Headache, Dizziness, Visual changes, Tinnitus, Hearing loss Psychiatric: Denies: Anxiety, Depression, Homicidal Ideations, Suicidal Ideations Vital Signs Height 5 ft 4 in Weight: 72.756 kg Weight in Pounds 160.4 lbs BMI 27.5 Pulse Ox 95 - Physical Exam General: Alert, Oriented x3, No apparent distress HEENT: Atraumatic, PERRLA, EOMI, Normocephalic Oropharynx:: Dry mucosa Neck:: Supple, Trachea midline. Negative for: JVD, bilateral Cardiac:: Regular rate, Regular rhythm, Normal S1, Normal S2. Negative for: Murmur Lungs: Clear to auscultation, Excusion symmetrical. Negative for: Rhonchi, Wheezes Abdomen:: Bowel sounds x 4, Soft, Non-tender, Non-distended. Negative for: Hepatosplenomegaly Extremities:: Negative for: Cyanosis, Edema Neurological: Neuro grossly intact Skin:: Negative for: Lesions, Rash, Petechiae, Ecchymosis Psychiatric:: Appropriate affect, Euthymic Lymphatics:: Negative for: Cervical lymphadenopathy, Supraclavicular lymphadenopathy, Axillary lymphadenopathy Breast:: - - R mastectomy scar. Laboratory Data: Laboratory Tests WBC 6.0 (4.4-11.0) K/mm3 RBC 4.21 (4.2-5.4) M/mm3 Hgb 13.9 (12.0-15.0) g/dl Assessment and Plan Right breast cancer stage IIB(cT2 cN1 M0), UO quadrant, ER/NM positive, Her2 3+ positive by IHC. S/P neoadjuvant therapy with P-TCH. Has R MRM and axillary dissection on 03/25/2018. Pulmonary Histocytosis. EF 60% on 03/20/2018. S/P Port placement. Counts and chem are OK. Osteopenia. On adjuvant Perjeta/Herceptin maintenance and Tamoxifen. Plan is to continue adjuvant therapy with Perjeta and Herceptin q 3 wks C2. To start adjuvant Tamoxifen 20mg PO daily x 10yrs. Did not get it. RTC 3 weeks with CBC/CMP to start therapy with maintenance Perjeta and Herceptin C3. Medications: Prescriptions This Visit Medication Instructions Recorded Albuterol Aerosols [Ventolin 1 puff INHALATION DAILY 10/21/17 Aerosols] Albuterol Inhaler [Ventolin Hfa] 1 puff INHALATION DAILY 10/21/17 Primary Care Provider: Lesley Asher Referring Provider: Ignacio Hoyt MD - Problem List (1) Breast cancer, right breast Status: Chronic Qualifiers: Breast location: upper outer quadrant of breast Estrogen receptor status: positive Patient sex: female Qualified Code(s): C50.411 - Malignant neoplasm of upper-outer quadrant of right female breast; Z17.0 - Estrogen receptor positive status [ER+] (2) Chemotherapy management, encounter for Status: Acute Code Visit Office Visits / Consults: [id number] OV L5 Est 06/04/18 1101 <Electronically signed by Ignacio Hoyt MD> Date Ignacio Hoyt MD Cosigner Signature: Date (if applicable) CC: COMPREHENSIVE METABOLIC Collected: 06/04/2018 Status: F Source: MAE PROFIL 9:37 AM [facility] REPOSITORY Order Comment: Reason for Laboratory Test . TYPE CODE TESTS RESULT OUT OF RANGE REFERENCE UNITS LAB L501.0100 74-106 mg/dL Normal GLU 82 Result Comment: Please note revised GLUCOSE reference range effective 2017. LAB L501.1000 7-18 mg/dL Normal BUN 9 LAB L501.1100 0.55-1.02 mg/dL Normal CREAT,SERUM 0.60 Result Comment: The validity of the calculated GFR AND GFRAA in patients over 70 years has not been determined. Clinical correlation is essential. LAB L501.1110 >60 mL/min Normal EST GFR 105 Result Comment: Non- GFR Calc LAB L501.1115 >60 mL/min Normal EST GFR - AA 127 Result Comment: GFR Calc LAB L501.1255 ml/min Normal Estimated CRCL 45.20 LAB L501.1300 10-20 RATIO Normal BUN/CRE 15.0 LAB L501.1500 6.4-8. g/dL Normal 2 T PROT 6.9 LAB L501.1800 3.2-5. g/dL Normal 0 ALB 3.5 LAB L501.1950 2.2-4. g/dL Normal 2 GLOB 3.4 LAB L501.2000 0.9-2. RATIO Normal 4 A/G 1.0 LAB L501.2200 8.5-10 mg/dL Normal .1 CA 8.5 LAB L501.4100 15-37 U/L Low AST 12 LAB L501.4305 45-117 U/L High ALK P 128 LAB L501.4405 13-56 U/L Normal ALT 21 LAB L501.4600 0.20-1 mg/dL Normal .00 T BILI 0.50 LAB L501.5300 136-14 mmol/L Normal 5 NA 142 LAB L501.5600 3.5-5. mmol/L Normal 1 K 4.2 LAB L501.5900 98-107 mmol/L Normal CL 104 LAB L501.6100 21.0-3 mmol/L Normal 2.0 CO2 31.0 LAB L501.6200 5-15 Normal GAP 7 Performed By: #### L500.4050 #### [facility] [address] [place], [place], [id number] CBC W/DIFF, AUTOMATED Collected: 06/04/2018 Status: F Source: DODGE 9:37 AM [facility] REPOSITORY Order Comment: Reason for Laboratory Test . TYPE CODE TESTS RESULT OUT OF RANGE REFERENCE UNITS LAB L100.1000 4.4-11.0 K/mm3 Normal WBC 6.0 LAB L100.1200 4.2-5.4 M/mm3 Normal RBC 4.21 LAB L100.1300 12.0-15.0 g/dl Normal HGB 13.9 LAB L100.1400 37-47 % Normal HCT 42.9 LAB L100.1500 81-99 fL High MCV 101.9 LAB L100.1600 27.0-32.0 pg High MCH 33.0 LAB L100.1700 32-36 g/gl Normal MCHC 32.4 LAB L100.1810 11.6-14.6 % Normal RDW CV 13.8 LAB L100.1820 35.1-43.9 fl High RDW SD 51.7 LAB L100.1900 150-450 K/mm3 Normal PLT 215 LAB L100.2000 6.2-12.0 fl Normal MPV 9.5 LAB L100.2100 47-70 % High NEUT% 70.9 LAB L100.2200 19-41 % Normal LY% 19.6 LAB L100.2300 0-10 % Normal MONO% 7.4 LAB L100.2400 0-5 % Normal EO% 1.5 LAB L100.2500 0-1 % Normal BASO% 0.3 LAB L100.2550 0.0-0.9 % Normal IM GRAN % 0.300 Result Comment: IG% - Immature Granulocytes (promyelocytes, myelocytes and metamyelocytes) > 1% indicates that a LEFT SHIFT is Present. LAB L100.2620 2.0-7.7 X10 3/uL Normal Absolute Neut 4.2 LAB L100.2720 0.83-4.51 X10 3/ul Normal Absolute Lymph 1.17 Performed By: #### L100.0100 #### [facility] [address] [place], [address] RADIATION ONCOLOGY Observed: 06/03/2018 Status: F Source: DODGE VISIT 11:53 AM [facility] REPOSITORY [facility] On[facility] [address] [place] [address] OFFICE VISIT Date of Service: 06/03/18 1148 MR#: [id number] Acct: [id number] Name: NURYS DIAZ #: [id number] : 1945 From: Arvind Wills DO Age/Sex: 72/F Location: [facility] Status: Signed Date of Service: 06/03/18 Diagnosis: Nurys Diaz is a 72 year-old female diagnosed with (cT2 N1 (fn) M0, ypT1c ypN1mi) grade 2 invasive ductal carcinoma (ER >95%, NM 21%, Her2 3+ IHC) of the right breast status post neoadjuvant chemotherapy consisting of TCH + P x 6 cycles (11/10/2017 - 02/24/18) and modified radical mastectomy (03/25/18). Plan was made to treat with adjuvant radiation therapy to the right chest wall and undissected regional lymph nodes consisting of 5000 cGy delivered in 25 fractions. Treatment Data: Treatment Site: Right chestwall and regional LNs Current total dose/Total dose planned: 400 cGy / 5000 cGy Fraction number: Chemotherapy: none concurrent Subjective: Tolerating therapy well overall, no complaints Skin: no erythema, desquamation, or rash Fatigue: none Swallowing: no dysphagia or odynophagia Resp: stable cough and reduced smoking Height/Weight/BMI: Height: 5 ft 4 in Weight: 72.212 kg Vital Signs Temperature 98.2 F 06/03/18 11:27 Temperature Source Oral 06/03/18 11:27 Pulse Rate 87 06/03/18 11:27 Respiratory Rate 16 06/03/18 11:27 Blood Pressure 110/80 06/03/18 11:27 Objective: Gen: NAD Skin: no erythema, desquamation, or rash. Well healed mastectomy scar without dehiscence Assessment: Tolerating therapy well overall. All treatment related imaging reviewed and approved No current treatment related toxicity Plan: Continue treatment as planned Skin: discussed skin care instructions, Remedy Follow up next week or sooner if needed Thank you for allowing me to participate in the management and care of your patient. If I may answer any questions in the interim, please do not hesitate to contact me at any time. Arvind Wills DO, MS Heel Compressor, Department of Radiation Oncology [facility] 06/03/18 1152 <Electronically signed by Arvind Wills DO> Date Arvind Wills DO Barrios Signature: Date (if applicable) CC: ONCOLOGY VISIT REPORT Observed: 05/14/2018 Status: F Source: DODGE 10:38 AM [facility] REPOSITORY [facility] [place] [place] [address] OFFICE VISIT Date of Service: 05/14/18 1014 MR#: [id number] Acct: [id number] Name: NURYS DIAZ Rep #: [id number] : 1945 From: Ignacio Hoyt MD Age/Sex: 72/F Location: [facility] Status: Signed Subjective - Date of Service Date of Service:: 05/14/18 - Chief Complaint F/U for adjuvant therapy of R breast cancer. - History of Present Illness 72-year-old woman noticed a right breast mass in July 2017, ultrasound/mammogram on 08/13/2017 showed irregular spiculated solid mass at 9 o'clock position measuring 2.5 cm in addition to enlarged lymph nodes in the axilla. She had right breast and axillary lymph node biopsy on August 27, 2017 which showed right breast invasive ductal carcinoma, and metastatic disease in Right Axillary lymph node, ER/NM positive, Her2 3+ positive. She was seen at [facility] by Dr. Jimenez, declined chemotherapy. CT chest/abdomen/pelvis showed right breast nodules with multiple right axillary lymph nodes, no murmurs pulmonary nodules, atherosclerotic disease with coronary calcifications, pulmonary hypertension, and emphysematous changes. There was no evidence of metastatic disease in abdomen or pelvis. She had CT-guided needle biopsy of lung nodule on 09/25/2017, Pathology showed pulmonary Langerhans cell histiocytosis. She had a change of heart and now willing to consider neoadjuvant chemotherapy with Her2 targeted therapy and has elected to do it in [place] [facility]. Port placed 10/28/[address] English and MUGA scan obtained 10/24/2017 showed EF 59%. She started therapy with TCH+P on 11/10/2017. Received C5D1 on 02/03/2018. She developed nausea/vomiting and watery diarrhea on 02/08/2018. Evaluated in clinic on 02/09/18, supported with IVFs. Stool negative for C diff on 02/09/18. Diarrhea continued so was admitted to Hospital from 02/12/2018 to 02/16/2018. Received cycle 6 on 02/24/18, Taxotere and carboplatin reduced because of diarrhea requiring admission. She have R MRM and axillary dissection at [facility] on 03/25/2018. Pathology showed residual Invasive ductal carcinoma with treatment effects, tumor size 1.8cm, Lymph nodes 06/28 positive. Pathologic staging ypT1c ypN1mi. She comes in to continue adjuvant therapy with Perjeta, Herceptin and hormonal therapy. - Past Medical/Social History Past Medical History Cancer: Breast cancer Social History Social History: No changes Smoking Status Current every day smoker Review of Systems Constitutional:: Denies: Fever, Sweats, Weight loss, Appetite change, Chills Cardiovascular:: Denies: Chest pain, Palpitations, Dyspnea on exertion, Orthopnea, PND, Shortness of breath Respiratory: Denies: Cough, Hemoptysis, Shortness of Breath, Wheezing Gastrointestinal:: Denies: Abdominal pain, Nausea, Vomiting, Diarrhea, Constipation, Hematochezia Genitourinary: Denies: Dysuria, Hematuria, 15, Flank pain Musculoskeletal:: Denies: Back pain, Myalgia, Arthralgia Skin: Denies: Rash, Skin Changes, Wounds Neurological:: Denies: Headache, Dizziness, Visual changes, Tinnitus, Hearing loss Psychiatric: Denies: Anxiety, Depression, Homicidal Ideations, Suicidal Ideations Vital Signs Height 5 ft 4 in Weight: 72.802 kg Weight in Pounds 160.5 lbs BMI 27.5 Pulse Ox 93 - Physical Exam General: Alert, Oriented x3, No apparent distress Diagnostic Data: 05/12/2018 bone density reviewed. BD/Dexa Bone Density Study IMPRESSION: The patient is considered osteopenic as outlined below according to World Isacc Organization (WHO) criteria with a high fracture risk. Assessment and Plan Right breast cancer stage IIB(cT2 cN1 M0), UO quadrant, ER/NM positive, Her2 3+ positive by IHC. S/P neoadjuvant therapy with P-TCH. Has R MRM and axillary dissection on 03/25/2018. Pulmonary Histocytosis. EF 60% on 03/20/2018. S/P Port placement. Counts and chem are OK. Osteopenia. Discussed Hormonal therapy with Tamoxifen vs Anastrozole and Prolia for osteopenia. Pt prefers Tamoxifen. Discussed risks, benefits and side effects. Plan is to start adjuvant therapy with Perjeta and Herceptin q 3 wks from today to complete a yr of therapy. To start adjuvant Tamoxifen 20mg PO daily x 10yrs. RTC 3 weeks with CBC/CMP to start therapy with maintenance Perjeta and Herceptin C2. Medications: Prescriptions This Visit Medication Instructions Recorded Albuterol Aerosols [Ventolin 1 puff INHALATION DAILY 10/21/17 Primary Care Provider: Lesley Asher Referring Provider: Ignacio Hoyt MD - Problem List (1) Breast cancer, right breast Status: Chronic Qualifiers: Breast location: upper outer quadrant of breast Estrogen receptor status: positive Patient sex: female Qualified Code(s): C50.411 - Malignant neoplasm of upper-outer quadrant of right female breast; Z17.0 - Estrogen receptor positive status [ER+] (2) Chemotherapy management, encounter for Status: Acute Code Visit Office Visits / Consults: [id number] OV L5 Est 05/14/18 1038 <Electronically signed by Ignacio Hoyt MD> Date Ignacio Hoyt MD Cosigner Signature: Date (if applicable) CC: CONSULTATION Observed: 05/12/2018 Status: F Source: MAE 11:34 AM [facility] REPOSITORY [facility] Medical Records Department [address] [place] [address] Consultation 05/12/18 1111 MR#: [id number] Acct: [id number] Name: NURYS DIAZ Rep #: [id number] : 1945 72 From: Arvind Wills DO PCP: LESLEY ASHER Status: REG RCR Y Location: [facility] Date of Service: 05/12/18 Referring Provider: Dr. Hoyt Diagnosis: Nurys Diaz is a 72 year-old female diagnosed with (cT2 N1 (fn) M0, ypT1c ypN1mi) grade 2 invasive ductal carcinoma (ER >95%, NM 21%, Her2 3+ IHC) of the right breast status post neoadjuvant chemotherapy consisting of TCH + P x 6 cycles (11/10/2017 - 02/24/18) and modified radical mastectomy (03/25/18). History of Present Illness: July 2017: Patient noticed a right breast mass. 08/13/2017: Mammogram and ultrasound were performed which demonstrated an irregular spiculated hypoechoic solid mass at the 9 o'clock position 7 cm from the nipple measuring 2.5 x 1.7 x 1.8 cm which is suspicious for a neoplastic process. In addition enlarged lymph nodes are seen in the axilla. 08/19/2017: Patient underwent right breast and axillary lymph node biopsies. Pathology demonstrated grade 2 invasive ductal carcinoma (ER >95%, NM 21%, Her2 3+ IHC). Lymph node biopsy demonstrated metastatic carcinoma measuring 0.7 cm. 09/02/2017: Patient evaluated by [facility] medical oncology and declined neoadjuvant treatment. 09/02/2017: Patient seen by [facility] surgery and on exam there was an ill-defined palpable mass at the 10:00 axis of the right breast measuring about 3 x 2 cm with some ill-defined nodularity in the right axilla. 09/02/2017: Right breast ultrasound was performed which demonstrated the known mass at 9:00 identified measuring 2.5 x 2.2 x 2.0 cm. At the 10 to 11 o'clock position there is a subareolar irregular hypoechoic mass associated with calcifications measuring 0.7 x 0.5 x 0.8 cm which is 3.5 cm from the nipple and 3.5 cm medial to the known carcinoma. 2 probably benign structures are identified in the left breast. 09/02/2017: Ultrasound-guided biopsy of the right breast mass next to the known lesion demonstrated grade 1 DCIS (ER 100%, NM 70%) 09/08/2017: CT chest abdomen and pelvis was completed which demonstrated numerous indeterminate bilateral pulmonary nodules and groundglass nodular opacities. For example left upper lobe lesion measures 1 x 1 cm and middle lobe measures 1.6 x 1 cm. There is a 1.5 x 1 cm lymph node in the right inferior axillary/right lateral chest wall region as well as some additional small/borderline enlarged enhancing right axillary/lateral chest wall lymph nodes such as a 1.3 x 0.9 cm lymph node. There are no supraclavicular lymph nodes that are enlarged. There is a punctate sclerotic focus apparently at the T5/T6 intervertebral disc suggestive of disc calcifications but this is nonspecific recommend attention to follow-up. There is no evidence of metastatic disease within the abdomen or pelvis. 09/08/2017: Bone scan was completed which showed no definite evidence of osteoblastic metastatic disease. 09/25/2017 CT-guided biopsy of a lung nodule was performed which demonstrated pulmonary Langerhans' cell histiocytosis 10/13/2017: Patient was evaluated by [facility] radiation oncology who discussed options for breast conservation versus mastectomy and that regardless of the selected surgery adjuvant radiation therapy would be recommended given the axillary travis involvement. 11/10/2017 - 02/24/18: Patient received neoadjuvant chemotherapy consisting of TCH + P x 6 cycles. Taxotere and carboplatin dose reduced on cycle 6 because of diarrhea requiring admission. 03/25/2018: Patient underwent modified radical mastectomy with complete axillary lymph node dissection. Pathology demonstrated residual invasive ductal carcinoma (ER 99%, NM 20%, Her2 3+) with treatment effect measuring 1.8 cm in greatest dimension in the breast. Lymphovascular invasion was not identified, margins are negative with closest margin at 1.9 cm from invasive disease. 27 lymph nodes were removed and one contained metastatic carcinoma measuring 1 mm. ypT1c ypN1mi. Radiation Treatment History: No previous history of radiation therapy. No diagnosis of collagen vascular disease. No pacemaker. Interval History: Patient presents for initial consultation. She reports that she palpated her breast mass but does not remember feeling lymph nodes in her underarm. She denied having any other associated symptoms when discovering her breast cancer. She reports tolerating chemotherapy fairly well other than experiencing fatigue and nausea/vomiting with diarrhea after the fifth cycle requiring a dose reduction for cycle 6. She recovered well and tolerated surgery well. She reports having continued chest wall tightness but is able to abduct her arm fairly well and denies pain. She does have numbness overlying the right chest wall and into the underarm. She notes having extensive scabbing involving the mastectomy scar which has recently begun to heal. She continues to use recommended washing and antibiotic ointment per her surgery team. She denies bleeding, dehiscence, or seroma. She believes her right arm has mildly increased in size when compared to her left, she believes this started when her drains were removed. She has been evaluated by physical therapy at [facility] but has not yet been fitted for a sleeve. Of note she does have a chronic smoking history of 1/2-1 pack/day for about 50 years and has a chronic cough as well as asthma. She does complain of shortness of breath on exertion which worsened with chemotherapy. She will get short of breath with 1 flight of stairs. She does report to being able to complete all activities of daily living without any difficulty and does most of the work around the house without assistance. She denies headaches, vision changes, bone pain, or other problems at this time. Family History (Last Reviewed 05/12/18 @ 09:31 by Ronna Palomares, AIME) Brother Cancer Father Lung cancer Aunt Cancer Medical History (Last Reviewed 05/12/18 @ 09:30 by Ronna Palomares, AIME) Fracture, skull (Acute) 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 (Acute) #27 [facility] 03/2018 Abnormal breast biopsy (Acute) right breast 08/19/17 Asthma (Acute) Breast cancer (Acute) History of elevated glucose (Acute) pre-diabetic Hyperthyroidism (Acute) port placement (Acute) 10-28-17 Surgical History (Last Reviewed 05/12/18 @ 09:30 by Ronna Palomares, AIME) H/O toe surgery (Acute) cyst removed H/O ultrasound guided needle biopsy (Acute) RIGHT BREAST [facility] AUGUST 2017 History of appendectomy (Acute) History of back surgery (Acute) History of modified radical mastectomy of right breast (Acute) [facility] 03/2018 Social History - Tobacco Smoking Status Current every day smoker Years used: 50 Passive smoke exposure: No Social History - Substance Drug use: No Caffeine use [drinks/day]: 0 Alcohol use: Yes Type of alcohol: Beer or whiskey Social History - Living Arrangements Patients Living Arrangements With Significant Other Home Medications Medication Instructions Recorded Albuterol Aerosols [Ventolin 1 puff INHALATION DAILY 10/21/17 Allergy/AdvReac Type Severity Reaction Status Date / Time No Known Allergies Allergy Verified 05/12/18 09:27 Health Maintenance Do you regularly see your Yes primary care physician? Have you ever had a No colonoscopy? I have reviewed the medical, surgical, and other pertinent history in details and have updated medication and allergy information in the electronic medical record. Review of Systems: A 12-point review of systems was completed and was negative except for what is noted in the HPI/Interval History and by the nurse. Height/Weight/BMI: Height: 5 ft 4 in Weight: 160.5 lbs Vital Signs Temperature 98.6 F 05/12/18 09:29 Temperature Source Oral 05/12/18 09:29 Pulse Rate 74 05/12/18 09:29 Respiratory Rate 16 05/12/18 09:29 Blood Pressure 126/73 H 05/12/18 09:29 Physical Exam: ECO KARNOFSKY SCORE: 80% CONSTITUTIONAL: Well-developed, well-nourished, and in no apparent distress. HEENT: Mucous membranes moist. No evidence of thrush or lesions within the visualized oropharynx or oral cavity. No trismus. Pupils are equal, round, and reactive to light and accommodation. Extraocular movements are intact. Sclerae are anicteric. NECK: Supple,with no thyromegaly, and non-tender. Trachea midline. No cervical or supraclavicular adenopathy noted. CARDIAC: Regular rate and rhythm. Normal S1, S2. No murmurs, rubs, or gallops. PULMONARY/CHEST: Lungs are clear to auscultation and percussion bilaterally. Inspiratory and expiratory rhonchi noted. No wheezing or crackles appreciated. No increased work of breathing. Reduced air movement in the bilateral superior lung fraga. ABDOMINAL: Abdomen soft, non-tender, non-distended. No hepatomegaly. Normoactive bowel sounds in all four quadrants. No guarding, rebound. BACK: Straight and aligned. No CVA tenderness. Axial skeleton non-tender to percussion. BREAST: The right chest wall and left breast were examined in the seated and supine position. There is a 15 cm horizontal mastectomy incision that is intact without dehiscence. Medially there is a 7 cm raised black scab and more laterally there is a 2 cm raised black scab. There is pectoralis tightness involving the right chest wall with arm abduction but range of motion is adequate. No palpable masses or lesions are noted in the left breast or either axilla. EXTREMITIES: Full range of motion in all four extremities, with normal strength equally and symmetrically. No evidence of edema. No clubbing. NEUROLOGICAL EXAM: Alert and oriented x 3. Cranial nerves II through XII are grossly intact. No focal neurological deficit. Speech is fluent. There is no upper or lower extremity sensory deficit or motor deficit. Muscle strength is 5/5 in all muscle groups. Gait and posture are steady. PSYCHIATRIC: Appropriate mood and affect for the clinical situation. Imaging: As per HPI Laboratory Data: Laboratory Tests Calcium 8.3 L Alkaline Phosphatase 126 H 05/07/2018: CBC and CMP unremarkable Assessment: Nurys Diaz is a 72 year-old female diagnosed with (cT2 N1 (fn) M0, ypT1c ypN1mi) grade 2 invasive ductal carcinoma (ER >95%, NM 21%, Her2 3+ IHC) of the right breast status post neoadjuvant chemotherapy consisting of TCH + P x 6 cycles (11/10/2017 - 02/24/18) and modified radical mastectomy (03/25/18). I had a detailed discussion with the patient regarding the diagnosis of stage II breast cancer and various treatment recommendations. I reviewed the pre- chemotherapy imaging which in addition to the disease located in the right breast demonstrates at least 2 lymph nodes that appear abnormal 1 of which was biopsied and confirmed to have metastatic involvement. I reviewed with the patient that traditionally post mastectomy radiation therapy recommendations were determined largely by the pathologic assessment of disease following surgery. In the era of neoadjuvant chemotherapy there is more ambiguity regarding who benefits from adjuvant radiation therapy following neoadjuvant chemotherapy and surgery. I reviewed that in her particular case she appeared to have relatively low risk clinical stage II disease with older age, hormone positive disease, small clinical T2 primary tumor (2.5-3 cm), and higher risk features being 2 abnormal appearing lymph nodes (albeit small measuring less than 1.[address] scan). I reviewed in detail the pathologic data found at the time of surgery demonstrating persistent disease within the breast measuring 1.8 cm and a solitary lymph node with 1 mm of disease remaining. Other pathologic data included negative lymphovascular invasion, 26 negative lymph nodes, and widely negative margins at 1.9 cm from invasive disease. I reviewed that if she had had T2 N1 (clinical stage) or T1c N1mi (pathologic stage) in the setting with no neoadjuvant chemotherapy that it would likely be possible to avoid postmastectomy radiation therapy given all the other low risk features. However, the fact that she did not completely respond to neoadjuvant chemotherapy and because there is ambiguity in the initial staging as there can be inaccuracies in clinical staging that are cleared up with pathologic staging, it becomes more unclear if she would benefit from postmastectomy radiation therapy. I discussed with her that treatment decisions based on pathologic response after neoadjuvant chemotherapy is a subject of a current trial (NSABP B-51/RTOG-1308) which includes patients who have node positive disease prior to chemotherapy and then become pathologically node-negative and if they undergo mastectomy then the randomized to having postmastectomy radiation therapy including the regional lymph nodes versus no radiation therapy. However this trial only enrolls patients who are node negative at the time of surgery and therefore she would not be eligible as she would be deemed too hich risk based on the residual travis disease. I reviewed the limited data that evaluated risk of recurrence post neoadjuvant chemotherapy in patients who did not receive radiation therapy. This risk was studied with the combined analysis of NSABP B-18 and B-27 (Gaby et al, JCO 2012) in patients who received neoadjuvant chemotherapy and surgery but no radiation therapy, and in patients with mastectomy and residual disease within the lymph nodes the risk of recurrence was about 16% at 10 years if the lymph nodes were clinically positive as was true in her case (nodularity in the right axilla documented on exam) and this risk did not depend on size of the primary tumor. When summarizing all the pertinent data is very difficult to determine her absolute benefit for post mastectomy radiation therapy, but strictly adhering to the limited data would suggest that post mastectomy radiation therapy may benefit her as she could have a risk of recurrence greater than 10% at 10 years. I discussed the risks, benefits, and alternatives to radiation therapy and all questions and concerns were answered to the best of my ability. I explained the logistics of radiation therapy. In particular, I discussed that the radiation proceeds over several weeks and is delivered with daily fractionation. The process of planning radiation therapy was also discussed including the need for CT simulation, placement of tattoos or other marking, completion of the CT scan, and treatment planning including a verification simulation prior to initiation of treatment. I then discussed the possibility of acute side effects from radiation which would include but are not limited to skin erythema/tanning, chest wall discomfort, chest wall swelling, mild esophagitis, possibly a cough/pneumnitis, and fatigue. The temporary nature of the symptoms, supportive therapies that are available, as well as the expected average timeline for the resolution was all discussed. The risk of permanent complications was then discussed and these would include but are not limited to, a 10-15% risk of permanent skin color/texture change in the area of the treated skin, lymphedema which would generally be about 5-10% after sentinel lymph node biopsy and 15-25% after axillary lymph node dissection (additional 5% risk with travis irradiation), 3-5% risk for muscle fibrosis causing decreased arm range of motion, risk for poor cosmetic outcome/capsular contracture that could require further surgery, chest wall fibrosis that could result in pain or reduced range of motion, <5% risk of radiation pneumonitis or lung fibrosis, small risk of rib fracture underlying the treated chest wall, poor wound healing in the event of future surgery to the radiated site, and a less than 1% long-term risk of secondary malignancy. After full discussion patient was interested in pursuing adjuvant radiation therapy to maximally reduce the risk of disease recurrence and informed consent was obtained. Of note she is a current everyday smoker and I spoke at length with my preference that she quit smoking prior to radiation therapy in an effort to reduce risk for developing lung cancer in the future. I reviewed my desire to start radiation therapy no later than 12 weeks after surgery given data suggesting less than 8 weeks is ideal but 8-12 weeks is acceptable and after 12 weeks there is reduced efficacy of adjuvant radiation therapy. Currently she is 6 weeks post surgery and has had delay due to poor wound healing. Also she appears to have mild lymphedema per measurements today which may just be acute changes following drain removal but I would recommend that she obtain a sleeve and she will see physical therapy at [facility] in follow up next week. Clinically the patient is healing slowly from surgery but I believe is nearly ready to initiate treatment planning. She will see her surgeon and physical therapy next 05/19/2018 and I tentatively will schedule her for CT simulation on 05/20/2018. She was instructed to call with any further questions or concerns in the interim. Thank you for allowing me to participate in the management and care of your patient. If I may answer any questions in the interim, please do not hesitate to contact me at any time. Arvind Wills DO, MS Heel [employer]ressor, Department of Radiation Oncology [facility] 05/12/18 1134 <Electronically signed by Arvind Wills DO> Date Arvind Wills DO Cosigner Signature (if applicable): Date CC: Ignacio Hoyt MD; LESLEY ASHER; Eloise New BASIC ACOUSTIC ANALYST; Thomas Valentin MD Signed DEXA BONE DENSITY Observed: 05/12/2018 Status: F Source: DODGE STUDY 8:41 AM [facility] REPOSITORY [facility] Imaging Services [address] [place] [id number] Dexa Bone Density Study MR#: [id number] Acct: [id number] Name: NURYS DIAZ Iveth Rep #: [id number] : 1945 F 72 From: Chang Shepard MD PCP: LESLEY ASHER Status: REG CLI Study: Dexa Bone Density Study Date of Exam: 05/12/18 Exam# [id number] Ordering Dr: Ignacio Hoyt MD STUDY: DUAL ENERGY X-RAY ABSORPTIOMETRY / DXA REASON FOR EXAM: Female, 72 years old. The patient is postmenopausal. TECHNIQUE: Bone Mineral Density (BMD) measurements of lumbar spine and bilateral hips were obtained. COMPARISON: None. FINDINGS: Lumbar Spine (L1-L4): g/cm2 (1.180) / T-score (0.0) / Z-score (1.7) Findings are suggestive of normal bone density with a low fracture risk. Left Femur Total: g/cm2 (0.833) / T-score (-1.4) / Z- score (0.1) Left Femoral Neck: g/cm2 (0.720) / T-score (-2.3) / Z- score (-0.6) Right Femur Total: g/cm2 (0.833) / T-score (-1.4) / Z- score (0.1) Right Femoral Neck: g/cm2 (0.7-0) / T-score (-2.3) / Z-score (-0.6) BD/Dexa Bone Density Study IMPRESSION: The patient is considered osteopenic as outlined below according to World Isacc Organization (WHO) criteria with a high fracture risk. Reference Information: The T-score is the number of standard deviations above or below the standard which is normal for young adults at their peak bone mineral density. The World Health Organization (WHO) interprets the T-scores as follows: Above -1 Normal bone density Between -1 and -2.5 Osteopenia Equal to / or below -2.5 Osteoporosis As a practical clinical guideline, osteopenia may be graded as follows: Mild -1 through -1.5 Moderate -1.6 through -2.0 Severe -2.1 through -2.4 The Z-score is the number of standard deviations above or below age-matched controls. A Z-score of less than -1.5 would be considered abnormal. References: 1. NIH Osteoporosis and Related Bone Diseases http://www.osteo.org 2. International Society for Clinical Densitometry http://www.iscd.org 3. National Osteoporosis Foundation http://www.nof.org Electronically Signed: Chang Shepard MD at 14:45 EST Tel [phone], Service support , CC: Ignacio Hoyt MD; LESLEY ASHER Batch Tester: Signed ONCOLOGY VISIT REPORT Observed: 05/07/2018 Status: F Source: DODGE 4:25 PM [facility] REPOSITORY [facility] Medical Oncology [facility] [place] [address] OFFICE VISIT Date of Service: 05/07/18 1500 MR#: [id number] Acct: [id number] Name: NURYS DIAZ Rep #: [id number] : 1945 From: Ignacio Hoyt MD Age/Sex: 72/F Location: [facility] Status: Signed Subjective - Date of Service Date of Service:: 05/07/18 - Chief Complaint F/U for adjuvant therapy of R breast cancer. - History of Present Illness 72-year-old woman noticed a right breast mass in July 2017, ultrasound/mammogram on 08/13/2017 showed irregular spiculated solid mass at 9 o'clock position measuring 2.5 cm in addition to enlarged lymph nodes in the axilla. She had right breast and axillary lymph node biopsy on August 27, 2017 which showed right breast invasive ductal carcinoma, and metastatic disease in Right Axillary lymph node, ER/NM positive, Her2 3+ positive. She was seen at [facility] by Dr. Jimenez, declined chemotherapy. CT chest/abdomen/pelvis showed right breast nodules with multiple right axillary lymph nodes, no murmurs pulmonary nodules, atherosclerotic disease with coronary calcifications, pulmonary hypertension, and emphysematous changes. There was no evidence of metastatic disease in abdomen or pelvis. She had CT-guided needle biopsy of lung nodule on 09/25/2017, Pathology showed pulmonary Langerhans cell histiocytosis. She had a change of heart and now willing to consider neoadjuvant chemotherapy with Her2 targeted therapy and has elected to do it in [facility]. Port placed 10/28/[address] English and MUGA scan obtained 10/24/2017 showed EF 59%. She started therapy with TCH+P on 11/10/2017. Received C5D1 on 02/03/2018. She developed nausea/vomiting and watery diarrhea on 02/08/2018. Evaluated in clinic on 02/09/18, supported with IVFs. Stool negative for C diff on 02/09/18. Diarrhea continued so was admitted to Hospital from 02/12/2018 to 02/16/2018. Received cycle 6 on 02/24/18, Taxotere and carboplatin reduced because of diarrhea requiring admission. She have R MRM and axillary dissection at [facility] on 03/25/2018. Pathology showed residual Invasive ductal carcinoma with treatment effects, tumor size 1.8cm, Lymph nodes 06/28 positive. Pathologic staging ypT1c ypN1mi. She comes in to continue adjuvant therapy. - Past Medical/Social History Past Medical History Cancer: Breast cancer Social History Social History: No changes Smoking Status Current every day smoker Review of Systems Constitutional:: Denies: Fever, Sweats, Weight loss, Appetite change, Chills Cardiovascular:: Denies: Chest pain, Palpitations, Dyspnea on exertion, Orthopnea, PND, Shortness of breath Respiratory: Denies: Cough, Hemoptysis, Shortness of Breath, Wheezing Gastrointestinal:: Denies: Abdominal pain, Nausea, Vomiting, Diarrhea, Constipation, Hematochezia Genitourinary: Denies: Dysuria, Hematuria, 15, Flank pain Musculoskeletal:: Denies: Back pain, Myalgia, Arthralgia Skin: Denies: Rash, Skin Changes, Wounds Neurological:: Denies: Headache, Dizziness, Visual changes, Tinnitus, Hearing loss Psychiatric: Denies: Anxiety, Depression, Homicidal Ideations, Suicidal Ideations Vital Signs Height 5 ft 4 in Weight: 73.028 kg Weight in Pounds 161.0 lbs Pulse Ox 93 - Physical Exam General: Alert, Oriented x3, No apparent distress Breast:: - - Dressed R mastectomy area. Laboratory Data: Laboratory Tests WBC 6.9 (4.4-11.0) K/mm3 RBC 3.99 L (4.2-5.4) M/mm3 Hgb 13.5 (12.0-15.0) g/dl Diagnostic Data: 03/20/2018 Echocardiogram reviewed, EF 60%. Assessment and Plan Right breast cancer stage IIB(cT2 cN1 M0), UO quadrant, ER/NM positive, Her2 3+ positive by IHC. S/P neoadjuvant therapy with P-TCH. Has R MRM and axillary dissection on 03/25/2018. Pulmonary Histocytosis. EF 59%. S/P Port placement. Counts and chem are OK. Plan is to do adjuvant therapy with Perjeta and Herceptin q 3 wks to complete a yr of therapy. Obtain bone density then decide on Hormonal therapy. RTC 1 week with CBC/CMP to start therapy with Perjeta and Herceptin. Medications: Prescriptions This Visit Medication Instructions Recorded Albuterol Aerosols [Ventolin 1 puff INHALATION DAILY 05/22/18 Aerosols] Albuterol Inhaler [Ventolin Hfa] 1 puff INHALATION DAILY 10/21/17 Primary Care Provider: Lesley Asher Referring Provider: Ignacio Hoyt MD - Problem List (1) Breast cancer, right breast Status: Chronic Qualifiers: Breast location: upper outer quadrant of breast Estrogen receptor status: positive Patient sex: female Qualified Code(s): C50.411 - Malignant neoplasm of upper-outer quadrant of right female breast; Z17.0 - Estrogen receptor positive status [ER+] (2) Chemotherapy management, encounter for Status: Acute Code Visit Office Visits / Consults: [id number] OV L5 Est 05/07/18 1625 <Electronically signed by Ignacio Hoyt MD> Date Ignacio Hoyt MD Cosigner Signature: Date (if applicable) CC: CBC W/DIFF, AUTOMATED Collected: 05/07/2018 Status: F Source: [facility] 1:58 PM [facility] REPOSITORY Order Comment: Reason for Laboratory Test . TYPE CODE TESTS RESULT OUT OF RANGE REFERENCE UNITS LAB L100.1000 4.4-11.0 K/mm3 Normal WBC 6.9 LAB L100.1200 4.2-5.4 M/mm3 Low RBC 3.99 LAB L100.1300 12.0-15.0 g/dl Normal HGB 13.5 LAB L100.1400 37-47 % Normal HCT 41.8 LAB L100.1500 81-99 fL High MCV 104.8 LAB L100.1600 27.0-32.0 pg High MCH 33.8 LAB L100.1700 32-36 g/gl Normal MCHC 32.3 LAB L100.1810 11.6-14.6 % Normal RDW CV 13.4 LAB L100.1820 35.1-43.9 fl High RDW SD 51.5 LAB L100.1900 150-450 K/mm3 Normal PLT 202 LAB L100.2000 6.2-12.0 fl Normal MPV 9.3 LAB L100.2100 47-70 % Normal NEUT% 68.2 LAB L100.2200 19-41 % Normal LY% 22.1 LAB L100.2300 0-10 % Normal MONO% 8.0 LAB L100.2400 0-5 % Normal EO% 1.6 LAB L100.2500 0-1 % Normal BASO% 0.1 LAB L100.2550 0.0-0.9 % Normal IM GRAN % 0.000 Result Comment: IG% - Immature Granulocytes (promyelocytes, myelocytes and metamyelocytes) > 1% indicates that a LEFT SHIFT is Present. LAB L100.2620 2.0-7.7 X10 3/uL Normal Absolute Neut 4.7 LAB L100.2720 0.83-4.51 X10 3/ul Normal Absolute Lymph 1.52 Performed By: #### L100.0100 #### [facility] [address] [place], [place], [address] COMPREHENSIVE METABOLIC Collected: 05/07/2018 Status: F Source: [facility] 1:58 PM [facility] REPOSITORY Order Comment: Reason for Laboratory Test . TYPE CODE TESTS RESULT OUT OF RANGE REFERENCE UNITS LAB L501.0100 74-106 mg/dL High GLU 113 Result Comment: Fasting Glucose result from 100 to 125 mg/dL suggests IMPAIRED HOMEOSTASIS per A.D.A. criteria. Please note revised GLUCOSE reference range effective 2017. LAB L501.1000 7-18 mg/dL Normal BUN 9 LAB L501.1100 0.55-1.02 mg/dL Normal CREAT,SERUM 0.59 Result Comment: The validity of the calculated GFR AND GFRAA in patients over 70 years has not been determined. Clinical correlation is essential. LAB L501.1110 >60 mL/min Normal EST GFR 108 Result Comment: Non- GFR Calc LAB L501.1115 >60 mL/min Normal EST GFR - AA 130 Result Comment: GFR Calc LAB L501.1255 ml/min Normal Estimated CRCL 45.20 LAB L501.1300 10-20 RATIO Normal BUN/CRE 15.3 LAB L501.1500 6.4-8. g/dL Normal 2 T PROT 6.8 LAB L501.1800 3.2-5. g/dL Normal 0 ALB 3.4 LAB L501.1950 2.2-4. g/dL Normal 2 GLOB 3.4 LAB L501.2000 0.9-2. RATIO Normal 4 A/G 1.0 LAB L501.2200 8.5-10 mg/dL Low .1 CA 8.3 LAB L501.4100 15-37 U/L Low AST 13 LAB L501.4305 45-117 U/L High ALK P 126 LAB L501.4405 13-56 U/L Normal ALT 18 LAB L501.4600 0.20-1 mg/dL Normal .00 T BILI 0.50 LAB L501.5300 136-14 mmol/L Normal 5 NA 140 LAB L501.5600 3.5-5. mmol/L Normal 1 K 4.1 LAB L501.5900 98-107 mmol/L Normal CL 104 LAB L501.6100 21.0-3 mmol/L Normal 2.0 CO2 31.0 LAB L501.6200 5-15 Normal GAP 5 Performed By: #### L500.4050 #### [facility] [address] [place] [address]. [place], [address] SURGICAL PATHOLOGY Observed: 03/25/2018 Status: F Source: [facility] 11:05 AM [facility] REPOSITORY Surgical Pathology Report Patient Name: NURYS DIAZ [facility]. Rec #: [id number] Submitting Physician: THOMAS VALENTIN --- Clinical History --- Preop diagnosis: Malignant neoplasm of overlapping sites of right breast in female, estrogen receptor positive. Medical history: History of chemotherapy. C50.811 Z17.0 ---Final Pathologic Diagnosis--- A. Right breast and axillary contents, modified radical mastectomy: - Residual invasive ductal carcinoma with treatment effects, measuring 1.8 cm in greatest dimension, status post neoadjuvant chemotherapy, see synoptic report - Invasive carcinoma is 1.9 cm from the nearest margin (deep) - Lobular carcinoma in situ (LCIS) - Biopsy sites (x2) changes - Metastatic carcinoma present in 1 of 27 lymph nodes with treatment effects, measuring up to 0.1 cm - 2 of the negative lymph nodes also show treatment effects SYNOPTIC REPORT FOR INVASIVE BREAST CANCER POST NEOADJUVANT THERAPY Specimen (P=partial resection, M=mastectomy): M Laterality (R=right, L=left): R Residual invasive carcinoma in breast (P=present, N=not identified): P Focality (U=unifocal, M=multifocal): U Maximum tumor size (cm): 1.8 Scattered single cells and small clusters, over a maximum span of 1.8 cm Residual Cancer Crowell (NA=not applicable): NA Residual Cancer Crowell Class (0-III, NA=not applicable): NA Histologic type: ductal Calhoun grade: CANNOT BE DETERMINED Treatment effect (P=present, N=not identified): P Tumor extent (P=positive, N=negative, NA=not applicable): Involvement of skin, nipple epidermis, skeletal muscle: N Lymphovascular invasion (P=present, N=not identified): N Margins of main specimen (P=positive, N=negative): N Distance to closest margin of main specimen (cm): 1.9 Designation of closest margin of main specimen: deep Re-resection margin status (P=positive, N=negative, NA=not applicable): NA DCIS (P=present, N=not identified): N Regional lymph nodes: Total number of lymph nodes (sentinel and non-sentinel): 27 Number of sentinel lymph nodes: 0 Number of lymph nodes with macrometastases (greater than 2.0mm): 0 Number of lymph nodes with micrometastases (greater than 0.2mm and </=2.0mm): 1 Number of lymph nodes with isolated tumor cells (</=0.2mm): 0 Size of largest travis metastasis (mm): 1 Size of extranodal extension (mm) (N=not identified): No definitive extranodal extension identified Possible treatment effect (P=present, N=not identified): P (multiple small clusters in fibrotic background) Estrogen receptor: positive (99%, strong intensity) Progesterone receptor: positive (20%, moderate intensity) HER2 IHC: positive (score: 3+) HER2 FISH: NA Specimen in which ER/NM/HER2 performed: pTNM: ypT1c ypN1mi Additional pathologic findings: Biopsy sites (x2) changes, extensive lobular carcinoma in situ, minute intraductal papillomas, columnar cell change, fibroadenomatoid change, sclerosing adenosis and microcalcifications. Skin with a hemangioma. Comments: none. The above synoptic report complies, in slightly modified form, with the guidelines of the [employer] and the Association of Directors of Anatomic and Surgical Pathology for the reporting of cancer specimens clin44/XCUI:03/30/2018 Electronically Signed By Romero Stover MD, PhD 03/30/2018 11:56:43 Professional Interpretation performed at location: [address] [place] [address]. [place] [address] ---MICROSCOPIC:--- A microscopic examination was performed. All controls show appropriate reactivity. All immunohistochemistry, in situ hybridization, and histochemical tests were developed by and are performed at the [facility], [address] [place] [address], [place] [address]. All tests reported here, except those addressing HER2 overexpression as a predictive marker, have not been cleared by or approved by the US Food and Drug Administration (FDA). The laboratory is regulated under CLIA as qualified to perform high-complexity testing. The tests are used for clinical purposes. They should not be regarded as investigational or for research. ---SPECIMEN(S) RECEIVED:--- SR A: Breast, mastectomy with lymph nodes ---GROSS DESCRIPTION:--- The specimen is received in one properly labeled container with the patient's name and accession number. A. The specimen is designated right breast, stitch = axillary lymph nodes and consists of a 792 gram breast with axillary contents. The breast alone is 23 x 21.5 x 3.5 cm and is partially surfaced by an ellipse of garcia-pink skin, measuring 19 x 9.0 cm. There is a paracentrally non-retracted nipple. Additionally, there is a red patch on the skin located 5.5 cm lateral to the nipple that measures 0.5 x 0.5 cm and is located 1.5 cm from the closest (inferior-lateral) skin margin. The specimen is oriented with a stitch = axillary lymph nodes. The margins are inked as follows: Superior-anterior = blue, inferior-anterior = green, and deep/posterior = black. There is an irregular, garcia-white, firm mass located along the 9 o'clock axis that appears to measure 1.8 x 1.7 x 1.4 cm. The mass is 1.3 cm from the skin and is located deep to the aforementioned red patch. The mass is 5.5 cm from the nipple, 2 cm from the inferior-anterior margin, 3 cm from the superior-anterior, and 1.9 cm from the deep/posterior margin. Additionally, there is a biopsy cavity containing a barbell biopsy clip located in the subareolar aspect. The biopsy cavity measures 0.8 cm in greatest dimension and is located 3.2 cm from the mass. The biopsy cavity is 1 cm from the skin, 2 cm from the nipple, 3 cm from the deep/posterior margin, 4.5 cm from the superior-anterior margin, and 4 cm from the inferior-anterior margin. The remainder of the breast parenchyma is composed of approximately 15% fibrous tissue and 85% adipose tissue. The axillary contents measures 13.5 x 8 x 2.8 cm. The lymph nodes range from 0.2, up to 2.0 cm in greatest dimension. The largest lymph node is suspicious for tumor involvement and possible extranodal extension. RS26 Summary of Cassettes: A1, skin with red patch; A2, nipple; A3, tissue between mass and subareolar biopsy cavity; A4, deep margin overlying mass, perpendicular sections; A5, inferior-anterior margin, perpendicular; A6-9, sections of mass along the longest axis; A10, deep/posterior margin overlying subareolar biopsy cavity, perpendicular; A11-13, subareolar biopsy cavity and surrounding tissue; A14, upper-outer quadrant including perpendicular section of superior-anterior margin; A15, upper-inner quadrant; A16, lower-inner quadrant; A17-18, largest lymph node suspicious for tumor involvement, serially sectioned (each section is 0.2 cm in thickness); A19, one small lymph node, trisected; A20, one trisected lymph node; A21, one bisected lymph node; A22, one quadrisected lymph node; A23-25, each contains six lymph nodes; A26, four lymph nodes Time of specimen removal from patient: 03/25/2018 at 0833 Time specimen placed in formalin: 03/25/2018 at 0903 Cold Ischemia Time: 30 minutes Time specimen removed from formalin: 03/25/2018 at 22:50 Total Fixation Time: 13 hours 47 minutes Lab Use Only: JobID [id number] Gross description by: Isiah Barnard Performed By: #### SURGP #### [facility] [address] [place] [id number] [facility] [address] [place], [place] [address] XR CHEST PORTABLE - Observed: 03/25/2018 Status: F Source: [facility] FOREIGN BODY 10:11 AM [facility] REPOSITORY EXAM: XR CHEST PORTABLE - FOREIGN BODY, 03/25/2018 09:26 AM CLINICAL INDICATIONS: Foreign Body TIMES: pCXR Ordered: 03/25/2018 09:00 AM pCXR Requested: 03/25/2018 09:[address] Researcher arrival in OR: 03/25/2018 09:04 AM Completion of Exam: 03/25/2018 09:26 AM Radiology Attending communication of results to Surgery Attending (Time): 10:07 A.M. DETAILS: Specific missing device: Missing needle Attending Surgeon receiving results: Dr. Valentin Confounding issues: Incomplete image. The patient underwent a right mastectomy, however the right hemithorax is incompletely imaged. FINDINGS: (Adequate technique) Implanted Devices: Stable left port. Surgical drain overlies the right hemithorax. ET tube is in the mid trachea. Chest Wall: Imaged portions of the chest wall are normal. Rah: Normal Mediastinum: Normal Pleural Spaces: No pleural effusion. No pneumothorax. Lungs: Clear, without mass, interstitial disease, or consolidation. Cardiac Silhouette: Normal, without overall or specific chamber enlargement, or abnormal calcification Thoracic Aorta: Normal Pulmonary Vessels: Normal, without PVH IMPRESSION: Limited exam. Patient underwent a right mastectomy with incomplete imaging of the right hemithorax. No radiopaque foreign body is identified within the imaged portions of the thorax. Dr. Valentin confirmed that he approved the image when taken and that the missing needle had been found. *POC GLUCOSE BATTERY Collected: 03/25/2018 Status: F Source: [facility] [facility] 6:17 AM [facility] REPOSITORY TYPE CODE TESTS RESULT OUT OF REFERENCE UNITS RANGE LAB GLUP 70-99 mg/dL Glucose (poc 83 device) Result Comment: No BRAVE per RN: PATIENT TYPE LAB PCSTYP *POC SAMPLE TYPE Venous ONC ECHOCARDIOGRAM Observed: 03/20/2018 Status: F Source: [facility] COMPLETE 9:29 PM [facility] REPOSITORY [facility] [address] [place] [address] ONC Echo Complete 03/20/18 1358 MR#: [id number] Acct: [id number] Name: NRUYS DIAZ Rep #: [id number] : 1945 72 From: Dalton Toscano MD Attending Dr: Eloise New NP Status: REG CLI Ordering Dr: Eloise New NP-Lisa Date: 03/20/18 Location: [facility]S Sex: F C Admitted: Reason For Study: Pre Op Procedure This was a 2D Doppler, Color Flow transthoracic echocardiogram. Myocardial strain analysis was performed in this exam to aid in the assessment of cardiac function. The exam was of adequate technical quality. Exam performed in department. Left Ventricle Normal LV size. Apical false tendon noted. Left ventricular systolic function is normal. The estimated ejection fraction is 60 %. The global longitudinal strain = -20 % (normal). Diastolic function is indeterminate. No regional wall motion abnormalities noted. Right Ventricle Normal RV size. Normal systolic function. Atria The left atrium is mildly enlarged. Normal right atrium. No doppler evidence for ASD. Mitral Valve There is mild mitral annular calcification. Normal mitral valve. Mild (1+) mitral valve insufficiency. Tricuspid Valve Normal tricuspid valve. Trivial tricuspid valve insufficiency. Aortic Valve Trisinus/trileaflet aortic valve. Mild focal aortic valve thickening. Pulmonic Valve The pulmonic valve is not well visualized. Mild (1+) pulmonic valve insufficiency. Great Vessels Normal sized aortic root. Pericardium/Pleural No pericardial effusion. MMode/2D Measurements AND Calculations LVIDd: 5.2 cm IVSd: 1.1 cm LVOT diam: 2.0 cm LVIDs: 3.4 cm LVPWd: 0.89 cm LVOT area: 3.1 cm2 RVDd: 3.6 cm FS: 33.9 % Ao root diam: 3.0 cm LAV(MOD-bp): 64.5 ml LVAd ap4: 24.1 cm2 LA dimension: 4.2 cm LAV(MOD-bp) Indexed: 35.9 ml/m2 EDV(MOD-sp4): 63.9 ml LAV(MOD-sp2): 54.1 ml EDV(sp4-el): 66.6 ml LAV(MOD-sp4): 68.4 ml LVAs ap4: 15.4 cm2 ESV(MOD-sp4): 32.7 ml ESV(sp4-el): 31.2 ml EF(MOD-sp4): 48.8 % EF(sp4-el): 53.1 % SV(MOD-sp4): 31.2 ml SV(sp4-el): 35.4 ml LA A4 area: 21.1 cm2 RA A4 area: 12.6 cm2 Time Measurements MV dec time: 0.23 sec Doppler Measurements AND Calculations MV E max romeo: 131.6 cm/sec Lat Peak E' Romeo: 10.8 cm/sec Med Peak E' Romeo: 8.9 cm/sec MV A max romeo: 101.4 cm/sec E/E' lat: 12.2 E/E' med: 14.8 MV E/A: 1.3 MV V2 max: 130.7 cm/sec MV P1/2t max romeo: 130.7 cm/sec Ao V2 max: 145.6 cm/sec MV max P.8 mmHg MV P1/2t: 98.4 msec Ao max P.5 mmHg MV V2 mean: 76.0 cm/sec MV dec slope: 388.9 cm/sec2 Ao V2 mean: 102.5 cm/sec MV mean P.7 mmHg MVA(P1/2t): 2.2 cm2 Ao mean P.6 mmHg MV V2 VTI: 37.2 cm Ao V2 VTI: 34.2 cm MVA(VTI): 2.3 cm2 ALLAN(I,D): 2.5 cm2 ALLAN(V,D): 2.6 cm2 LV V1 max: 123.3 cm/sec SV(LVOT): 86.5 ml PA V2 max: 116.5 cm/sec LV V1 max P.1 mmHg LV V1 mean P.9 mmHg LV V1 mean: 80.3 cm/sec LV V1 VTI: 28.2 cm PI dec slope: 265.9 cm/sec2 Interpretation Summary Left ventricular systolic function is normal. The estimated ejection fraction is 60 %. The global longitudinal strain = -20 % (normal). The left atrium is mildly enlarged. There is mild mitral annular calcification. Mild (1+) mitral valve insufficiency. Trivial tricuspid valve insufficiency. Mild focal aortic valve thickening. Mild (1+) pulmonic valve insufficiency. Diastolic function is indeterminate. Ordering Physician: Eloise New Referring Physician: Eloise New Performed By: Daryn Guerrero RCS 03/20/182128 Date Dalton Toscano MD CC: LESLEY New BASIC ACOUSTIC ANALYST Date Dictated: 03/20/18 1358 Date Transcribed: 03/20/182128 Batch Tester: Signed XR CHEST PA AND Observed: 03/12/2018 Status: F Source: [facility] LATERAL 2:46 PM [facility] REPOSITORY EXAM: XR CHEST PA AND LATERAL, 03/12/2018 13:19 PM COMPARISON: No prior studies available for comparison. CLINICAL INDICATIONS: see comment RELEVANT CLINICAL HISTORY: Z01.818:Preop testing Preop testing for upcoming right modified radical mastectomy; FINDINGS: (Adequate technique) Implanted Devices: Left subcutaneous port with tip in mid SVC. Chest Wall: Normal Rah: Normal Mediastinum: Normal Pleural Spaces: No pleural effusion. No pneumothorax. Lungs: Bilateral basilar atelectasis. Cardiac Silhouette: Normal, without overall or specific chamber enlargement, or abnormal calcification Thoracic Aorta: Mild calcifications. Pulmonary Vessels: Normal, without PVH IMPRESSION: No acute cardiopulmonary findings LOGY VISIT REPORT Observed: 03/10/2018 Status: F Source: [facility] 1:07 PM [facility] REPOSITORY [facility] [place] [address] [address] OFFICE VISIT Date of Service: 03/10/18 1104 MR#: [id number] Acct: [id number] Name: NURYS DIAZ Rep #: [id number] : 1945 From: Eloise ALY Age/Sex: 72/F Location: [facility] Status: Signed Subjective - Date of Service Date of Service:: 03/10/18 - Chief Complaint Cycle 6 Toxicity Assessment - History of Present Illness 72-year-old woman noticed a right breast mass in July 2017, ultrasound/mammogram on 08/13/2017 showed irregular spiculated solid mass at 9 o'clock position measuring 2.5 cm in addition to enlarged lymph nodes in the axilla. She had right breast and axillary lymph node biopsy on August 27, 2017 which showed right breast invasive ductal carcinoma, and metastatic disease in Right Axillary lymph node, ER/NM positive, HER-2 3+ positive. She was seen at [facility] by Dr. Jimenez, declined chemotherapy. CT chest/abdomen/pelvis showed right breast nodules with multiple right axillary lymph nodes, no murmurs pulmonary nodules, atherosclerotic disease with coronary calcifications, pulmonary hypertension, and emphysematous changes. There was no evidence of metastatic disease in abdomen or pelvis. She had CT-guided needle biopsy of lung nodule on 09/25/2017, Pathology showed pulmonary Langerhans cell histiocytosis. She had a change of heart and now willing to consider neoadjuvant chemotherapy with Her2 targeted therapy and has elected to do it in [facility]. Port placed 10/28/[address] English and MUGA scan obtained 10/24/2017 showed EF 59%. She started therapy with TCH+P on 11/10/2017. Received C5D1 on 02/03/2018. She developed nausea/vomiting and watery diarrhea on 02/08/2018. Evaluated in clinic on 02/09/18, supported with IVFs. Stool negative for C diff on 02/09/18. Diarrhea continued so was admitted to Hospital from 02/12/2018 to 02/16/2018. Received cycle 6 on 02/24/18, Taxotere dose reduced by and carboplatin reduced by . - Interval History The patient is presenting to clinic for 2 week follow up. States she did experience 1-2 episodes of diarrhea well controlled with Imodium and nausea well controlled with Zofran, no episodes of emesis. Both symptoms last week- now resolved. Appetite improved. Describes fatigue as mild to moderate now. Has pre op visit with Dr. Farrell on 03/12/18. C/o sinus drainage, productive cough and increased SOB x 2 days. Denies fever/chills, sweats, palpitations, abd pain and swelling/pain of her extremities. Using Breo and has used albuterol rescue inhaler today. Did not use albuterol via nebulizer. - Past Medical/Social History Past Medical History Cancer: Breast cancer Social History Social History: No changes Smoking Status Current every day smoker Review of Systems Constitutional:: Denies: Fever, Sweats, Weight loss, Appetite change, Chills Cardiovascular:: Denies: Chest pain, Palpitations, Orthopnea, PND, Shortness of breath Respiratory: Reports: Cough, Shortness of breath at rest. Denies: Hemoptysis, Wheezing Gastrointestinal:: Reports: Nausea - see HPI, Diarrhea - see HPI. Denies: Abdominal pain, Vomiting, Constipation, Hematochezia Genitourinary: Denies: Dysuria, Hematuria, 15, Flank pain Musculoskeletal:: Denies: Back pain, Myalgia, Arthralgia Skin: Reports: - - port left upper chest accessed with gripper covered with DSD. Denies: Rash, Skin Changes, Wounds Neurological:: Reports: Muscle weakness. Denies: Headache, Dizziness, Numbness, Tingling, Visual changes, Tinnitus, Hearing loss Psychiatric: Denies: Anxiety, Depression, Homicidal Ideations, Suicidal Ideations Vital Signs Height 5 ft 4 in Weight: 167 lb 6.4 oz Weight in Pounds 167.4 lbs Pulse Ox 96 - Physical Exam General: Alert, Oriented x3, No apparent distress HEENT: Atraumatic, Normocephalic, - - wears glasses Oropharynx:: Negative for: Dry mucosa, Ulcerated lesions Neck:: Supple, Trachea midline. Negative for: JVD, bilateral Cardiac:: Regular rate, Regular rhythm, Normal S1, Normal S2. Negative for: Murmur Lungs: Rhonchi, Wheezes, Increased respiratory effort - pursed lip breathing, Excusion symmetrical Abdomen:: Bowel sounds x 4, Soft, Non-tender, Non-distended. Negative for: Hepatosplenomegaly Extremities:: Negative for: Cyanosis, Edema Neurological: Neuro grossly intact Skin:: Negative for: Lesions, Rash, Petechiae, Ecchymosis Psychiatric:: Appropriate affect, Euthymic Lymphatics:: Negative for: Cervical lymphadenopathy, Supraclavicular lymphadenopathy, Axillary lymphadenopathy Laboratory Data: Laboratory Tests WBC 7.8 (4.4-11.0) K/mm3 RBC 2.63 L (4.2-5.4) M/mm3 Hgb 9.6 L (12.0-15.0) g/dl Hct 29.7 L (37-47) % Assessment and Plan 1. Stage IIB(cT2 cN1 M0), invasive ductal carcinoma UO quadrant right breast, ER/NM positive, Her2 3+ positive by IHC- Began neoadjuvant Taxotere/carboplatin/Perjeta/Herceptin on 11/10/17. Overall, has tolerated treatment and Neulasta well with c/o N/V/D controlled with Zofran and Imodium and moderate to severe fatigue. Echo 01/06/18 shows normal LV function and ejection fraction 55%. Doses attenuated with cycle 6 administered on 02/24/18 d/t GI toxicity. Demonstrates improved tolerance. Scheduled for pre op visit with Dr. Farrell at [facility] on 03/12/18, surgery tentatively scheduled for 03/25/18. Due for echo, however patient would like completed at [facility]. 2. Exertional dyspnea-according to the patient worsened from baseline accompanied by productive cough and sinus drainage. Afebrile. SpO2 95% on RA (baseline 96%). Sent for CXR, imaging does not demonstrate acute findings such as pneumonia. H/O COPD. Rx for Zpak provided. Recommended she administer with otc guaifenesin, dextromethorphan and phenylephrine preparation, use inhalants as advised by pcp and to notify our office immediately if she develops fever. 3. Chemotherapy induced anemia- As evidenced by Hgb 9.6 today. Will continue to monitor. RTO 3-4 weeks post op to discuss findings with Dr. Hoyt. Eloise New, MSN, TRANSITION COACH, AOCNP Medications: Prescriptions This Visit Medication Instructions Recorded Primary Care Provider: Lesley Asher Referring Provider: Ignacio Hoyt MD - Problem List (1) Breast cancer, right breast Status: Chronic Qualifiers: Breast location: upper outer quadrant of breast Estrogen receptor status: positive Patient sex: female Qualified Code(s): C50.411 - Malignant neoplasm of upper-outer quadrant of right female breast; Z17.0 - Estrogen receptor positive status [ER+] (2) Encounter for monitoring cardiotoxic drug therapy Status: Acute (3) Exertional dyspnea Status: Acute (4) Antineoplastic chemotherapy induced anemia Status: Acute 03/10/18 1307 <Electronically signed by Eloise ALY> Date Eloise ALY Cosigner Signature: Date (if applicable) CC: CHEST PA AND LATERAL Observed: 03/10/2018 Status: F Source: [facility] 11:50 AM [facility] REPOSITORY [facility] Imaging Services [address] [place] [id number] Chest PA and Lateral MR#: [id number] Acct: [id number] Name: NURYS DIAZ Rep #: [id number] : 1945 F 72 From: Rayo Mac MD PCP: LESLEY ASHER Status: REG CLI Study: Chest PA and Lateral Date of Exam: 03/10/18 Exam# [id number] Ordering Dr: Eloise New STUDY: X-RAY CHEST REASON FOR EXAM: Female, 72 years old. Shortness of breath for 2 days. History of breast cancer. TECHNIQUE: PA and lateral chest COMPARISON: 10/28/2017 chest x-ray. FINDINGS: Left Mediport catheter with tip in mid SVC, stable. Clear bilateral lungs. Normal cardiomediastinal silhouette, rah and pleural margins. No acute osseous or upper abdominal process. Mild scoliosis. RAD/Chest PA and Lateral IMPRESSION: No acute cardiopulmonary process. Electronically Signed: Rayo Mac, at 13:07 EDT Tel , Service support , CC: LESLEY ASHER; Eloise New BASIC ACOUSTIC ANALYST Batch Tester: Signed CBC W/DIFF, AUTOMATED Collected: 03/10/2018 Status: F Source: [facility] 10:15 AM [facility] REPOSITORY Order Comment: Reason for Laboratory Test . TYPE CODE TESTS RESULT OUT OF RANGE REFERENCE UNITS LAB L100.1000 4.4-11.0 K/mm3 Normal WBC 7.8 LAB L100.1200 4.2-5.4 M/mm3 Low RBC 2.63 LAB L100.1300 12.0-15.0 g/dl Low HGB 9.6 LAB L100.1400 37-47 % Low HCT 29.7 LAB L100.1500 81-99 fL High MCV 112.9 LAB L100.1600 27.0-32.0 pg High MCH 36.5 LAB L100.1700 32-36 g/gl Normal MCHC 32.3 LAB L100.1810 11.6-14.6 % High RDW CV 17.7 LAB L100.1820 35.1-43.9 fl High RDW SD 70.7 LAB L100.1900 150-450 K/mm3 Low PLT 127 LAB L100.2000 6.2-12.0 fl Normal MPV 9.4 LAB L100.2100 47-70 % High NEUT% 87.2 LAB L100.2200 19-41 % Low LY% 6.2 LAB L100.2300 0-10 % Normal MONO% 5.9 LAB L100.2400 0-5 % Normal EO% 0.0 LAB L100.2500 0-1 % Normal BASO% 0.3 LAB L100.2550 0.0-0.9 % Normal IM GRAN % 0.400 Result Comment: IG% - Immature Granulocytes (promyelocytes, myelocytes and metamyelocytes) > 1% indicates that a LEFT SHIFT is Present. LAB L100.2620 2.0-7.7 X10 3/uL Normal Absolute Neut 6.8 LAB L100.2720 0.83-4.51 X10 3/ul Low Absolute Lymph 0.48 LAB L100.7300 ANISO Normal 1+ Performed By: #### L100.0100, L500.4050, L501.5200 #### [facility] [address] [place], [address] COMPREHENSIVE METABOLIC Collected: 03/10/2018 Status: F [facility]: [facility] 10:15 AM [facility] REPOSITORY Order Comment: Reason for Laboratory Test . TYPE CODE TESTS RESULT OUT OF RANGE REFERENCE UNITS LAB L501.0100 74-106 mg/dL High GLU 138 Result Comment: Fasting Glucose result greater than or equal to 126 mg/dL suggests DIABETES MELLITUS per A.D.A. criteria. Please note revised GLUCOSE reference range effective 2017. LAB L501.1000 7-18 mg/dL Normal BUN 7 LAB L501.1100 0.55-1.02 mg/dL Low CREAT,SERUM 0.53 Result Comment: The validity of the calculated GFR AND GFRAA in patients over 70 years has not been determined. Clinical correlation is essential. LAB L501.1110 >60 mL/min Normal EST GFR 122 Result Comment: Non- GFR Calc LAB L501.1115 >60 mL/min Normal EST GFR - AA 147 Result Comment: GFR Calc LAB L501.1255 ml/min Normal Estimated CRCL 45.20 LAB L501.1300 10-20 RATIO Normal BUN/CRE 13.3 LAB L501.1500 6.4-8. g/dL Normal 2 T PROT 6.6 LAB L501.1800 3.2-5. g/dL Low 0 ALB 3.1 LAB L501.1950 2.2-4. g/dL Normal 2 GLOB 3.5 LAB L501.2000 0.9-2. RATIO Normal 4 A/G 0.9 LAB L501.2200 8.5-10 mg/dL Low .1 CA 8.4 LAB L501.4100 15-37 U/L Normal AST 24 LAB L501.4305 45-117 U/L High ALK P 174 LAB L501.4405 13-56 U/L Normal ALT 43 LAB L501.4600 0.20-1 mg/dL Normal .00 T BILI 0.40 LAB L501.5300 136-14 mmol/L Normal 5 NA 141 LAB L501.5600 3.5-5. mmol/L Normal 1 K 3.6 LAB L501.5900 98-107 mmol/L Normal CL 104 LAB L501.6100 21.0-3 mmol/L Normal 2.0 CO2 31.0 LAB L501.6200 5-15 Normal GAP 6 Performed By: #### L100.0100, L500.4050, L501.5200 #### [facility] [address] [place], [address] MAGNESIUM Collected: 03/10/2018 Status: F Source: [facility] 10:15 AM [facility] REPOSITORY Order Comment: Reason for Laboratory Test . TYPE CODE TESTS RESULT OUT OF RANGE REFERENCE UNITS LAB L501.5200 1.6-2.6 mg/dL Normal MG 2.0 Performed By: #### L100.0100, L500.4050, L501.5200 #### [facility] [address] [place], [address] ONCOLOGY VISIT REPORT Observed: 02/24/2018 Status: F Source: [facility] 5:10 PM [facility] REPOSITORY [facility] [address] [place] [address] OFFICE VISIT Date of Service: 02/24/18 0942 MR#: [id number] Acct: [id number] Name: NURYS DIAZ Rep #: [id number] : 1945 From: Ignacio Hoyt MD Age/Sex: 72/F Location: ONC Status: Signed Subjective - Date of Service Date of Service:: 02/24/18 - Chief Complaint Acute visit- N/V/D - History of Present Illness 72-year-old woman noticed a right breast mass in July 2017, ultrasound/mammogram on 08/13/2017 showed irregular spiculated solid mass at 9 o'clock position measuring 2.5 cm in addition to enlarged lymph nodes in the axilla. She had right breast and axillary lymph node biopsy on August 27, 2017 which showed right breast invasive ductal carcinoma, and metastatic disease in Right Axillary lymph node, ER/NM positive, HER-2 3+ positive. She was seen at [facility] by Dr. Reinbolt, declined chemotherapy. CT chest/abdomen/pelvis showed right breast nodules with multiple right axillary lymph nodes, no murmurs pulmonary nodules, atherosclerotic disease with coronary calcifications, pulmonary hypertension, and emphysematous changes. There was no evidence of metastatic disease in abdomen or pelvis. She had CT-guided needle biopsy of lung nodule on 09/25/2017, Pathology showed pulmonary Langerhans cell histiocytosis. She had a change of heart and now willing to consider neoadjuvant chemotherapy with Her2 targeted therapy and has elected to do it in [facility]. Port placed 10/28/[address] English and MUGA scan obtained 10/24/2017 showed EF 59%. She started therapy with TCH+P on 11/10/2017. Received C5D1 on 02/03/2018. She developed nausea/vomiting and watery diarrhea on 02/08/2018. Evaluated in clinic on 02/09/18, supported with IVFs. Stool negative for C diff on 02/09/18. Diarrhea continued so was admitted to Hospital from 02/12/2018 to 02/16/2018. Comes for C6. - Past Medical/Social History Past Medical History Cancer: Breast cancer Social History Social History: No changes Smoking Status Current every day smoker Review of Systems Constitutional:: Denies: Fever, Sweats, Weight loss, Appetite change, Chills Cardiovascular:: Denies: Chest pain, Palpitations, Dyspnea on exertion, Orthopnea, PND, Shortness of breath Respiratory: Denies: Cough, Hemoptysis, Shortness of Breath, Wheezing Gastrointestinal:: Denies: Abdominal pain, Nausea, Vomiting, Diarrhea, Constipation, Hematochezia Genitourinary: Denies: Dysuria, Hematuria, 15, Flank pain Musculoskeletal:: Denies: Back pain, Myalgia, Arthralgia Skin: Denies: Rash, Skin Changes, Wounds Neurological:: Denies: Headache, Dizziness, Visual changes, Tinnitus, Hearing loss Psychiatric: Denies: Anxiety, Depression, Homicidal Ideations, Suicidal Ideations Vital Signs Height 5 ft 4 in Weight: 76.657 kg Weight in Pounds 169.0 lbs Pulse Ox 95 - Physical Exam General: Alert, Oriented x3, No apparent distress, - - Port L IC area. HEENT: Atraumatic, PERRLA, EOMI, Normocephalic Oropharynx:: Dry mucosa Neck:: Supple, Trachea midline. Negative for: JVD, bilateral Cardiac:: Regular rate, Regular rhythm, Normal S1, Normal S2. Negative for: Murmur Lungs: Clear to auscultation, Excusion symmetrical. Negative for: Rhonchi, Wheezes Abdomen:: Bowel sounds x 4, Soft, Non-tender, Non-distended. Negative for: Hepatosplenomegaly Extremities:: Negative for: Cyanosis, Edema Neurological: Neuro grossly intact Skin:: Negative for: Lesions, Rash, Petechiae, Ecchymosis Psychiatric:: Appropriate affect, Euthymic Lymphatics:: Negative for: Cervical lymphadenopathy, Supraclavicular lymphadenopathy, Axillary lymphadenopathy Laboratory Data: Laboratory Tests Assessment and Plan Right breast cancer stage IIB(cT2 cN1 M0), UO quadrant, ER/NM positive, Her2 3+ positive by IHC on P-TCH Pulmonary Histocytosis. EF 59%. S/P Port placement. Counts and chem are OK. Diarrhea related to Taxotere. Plan is to proceed with C6 TCH+P with decreased dose of Taxotere and Carboplatin. RTC 2 weeks with CBC/CMP. Medications: Prescriptions This Visit Medication Instructions Recorded Primary Care Provider: Lesley Asher Referring Provider: Ignacio Hoyt MD - Problem List (1) Breast cancer, right breast Status: Chronic Qualifiers: Breast location: upper outer quadrant of breast Estrogen receptor status: positive Patient sex: female Qualified Code(s): C50.411 - Malignant neoplasm of upper-outer quadrant of right female breast; Z17.0 - Estrogen receptor positive status [ER+] (2) Chemotherapy management, encounter for Status: Acute Code Visit Office Visits / Consults: [id number] OV L5 Est 02/24/18 1710 <Electronically signed by Ignacio Hoyt MD> Date Ignacio Hoyt MD Cosigner Signature: Date (if applicable) CC: CBC W/DIFF, AUTOMATED Collected: 02/24/2018 Status: F Source: [facility] 8:16 AM [facility] REPOSITORY TYPE CODE TESTS RESULT OUT OF RANGE REFERENCE UNITS LAB L100.1000 4.4-11.0 K/mm3 Normal WBC 10.4 LAB L100.1200 4.2-5.4 M/mm3 Low RBC 2.60 LAB L100.1300 12.0-15.0 g/dl Low HGB 9.3 LAB L100.1400 37-47 % Low HCT 28.1 LAB L100.1500 81-99 fL High MCV 108.1 LAB L100.1600 27.0-32.0 pg High MCH 35.8 LAB L100.1700 32-36 g/gl Normal MCHC 33.1 LAB L100.1810 11.6-14.6 % High RDW CV 19.9 LAB L100.1820 35.1-43.9 fl High RDW SD 78.6 LAB L100.1900 150-450 K/mm3 Normal PLT 158 LAB L100.2000 6.2-12.0 fl Normal MPV 9.7 LAB L100.2100 47-70 % High NEUT% 86.4 LAB L100.2200 19-41 % Low LY% 6.1 LAB L100.2300 0-10 % Normal MONO% 7.4 LAB L100.2400 0-5 % Normal EO% 0.0 LAB L100.2500 0-1 % Normal BASO% 0.0 LAB L100.2550 0.0-0.9 % Normal IM GRAN % 0.100 Result Comment: IG% - Immature Granulocytes (promyelocytes, myelocytes and metamyelocytes) > 1% indicates that a LEFT SHIFT is Present. LAB L100.2620 2.0-7.7 X10 3/uL High Absolute Neut 8.9 LAB L100.2720 0.83-4.51 X10 3/ul Low Absolute Lymph 0.63 LAB L100.4500 SMEAR Normal COMMENT Result Comment: SLIDE SCANNED - 1+ ANISO. Performed By: #### L100.0100 #### [facility] [place], [address] COMPREHENSIVE METABOLIC Collected: 02/24/2018 Status: F Source: [facility] 8:15 AM [facility] REPOSITORY Order Comment: Reason for Laboratory Test Chemotherapy TYPE CODE TESTS RESULT OUT OF RANGE REFERENCE UNITS LAB L501.0100 74-106 mg/dL High GLU 162 Result Comment: Fasting Glucose result greater than or equal to 126 mg/dL suggests DIABETES MELLITUS per A.D.A. criteria. Please note revised GLUCOSE reference range effective 2017. LAB L501.1000 7-18 mg/dL Normal BUN 11 LAB L501.1100 0.55-1.02 mg/dL Normal CREAT,SERUM 0.63 Result Comment: The validity of the calculated GFR AND GFRAA in patients over 70 years has not been determined. Clinical correlation is essential. LAB L501.1110 >60 mL/min Normal EST GFR 99 Result Comment: Non- GFR Calc LAB L501.1115 >60 mL/min Normal EST GFR - AA 120 Result Comment: GFR Calc LAB L501.1255 ml/min Normal Estimated CRCL 45.20 LAB L501.1300 10-20 RATIO Normal BUN/CRE 17.5 LAB L501.1500 6.4-8. g/dL Normal 2 T PROT 6.7 LAB L501.1800 3.2-5. g/dL Low 0 ALB 3.1 LAB L501.1950 2.2-4. g/dL Normal 2 GLOB 3.6 LAB L501.2000 0.9-2. RATIO Normal 4 A/G 0.9 LAB L501.2200 8.5-10 mg/dL Normal .1 CA 8.5 LAB L501.4100 15-37 U/L Low AST 11 LAB L501.4305 45-117 U/L Normal ALK P 112 LAB L501.4405 13-56 U/L Normal ALT 26 LAB L501.4600 0.20-1 mg/dL Normal .00 T BILI 0.20 LAB L501.5300 136-14 mmol/L Normal 5 NA 138 LAB L501.5600 3.5-5. mmol/L Normal 1 K 3.8 LAB L501.5900 98-107 mmol/L Normal CL 102 LAB L501.6100 21.0-3 mmol/L Normal 2.0 CO2 28.0 LAB L501.6200 5-15 Normal GAP 8 Performed By: #### L500.4050, L501.5200 #### [facility] [address] [place], [place], [id number] MAGNESIUM Collected: 02/24/2018 Status: F Source: [facility] 8:15 AM [facility] REPOSITORY Order Comment: Reason for Laboratory Test Chemotherapy TYPE CODE TESTS RESULT OUT OF RANGE REFERENCE UNITS LAB L501.5200 1.6-2.6 mg/dL Normal MG 1.9 Performed By: #### L500.4050, L501.5200 #### [facility] [address] [place], [address] US BREAST LIMITED Observed: 02/19/2018 Status: F Source: [facility] 12:37 PM [facility] REPOSITORY EXAM: MAMMO DIAGNOSTIC RIGHT, US BREAST LIMITED BILATERAL, 02/19/2018 11:00 AM (accession [id number]), 02/19/2018 12:22 PM (accession [id number]) CLINICAL INDICATIONS: 72-year-old female presenting with known right breast invasive ductal carcinoma and right breast DCIS/LCIS on neoadjuvant chemotherapy presenting for resizing. Six-month follow-up of probably benign left breast structures. COMPARISON: Bilateral mammogram February 19, 2018, July 30, 2017, June 08, 2013 and bilateral breast ultrasound September 02, 2017. MAMMOGRAM TECHNIQUE: Digital MLO and CC views of the right breast were obtained. Computer aided detection was utilized. MAMMOGRAPHIC FINDINGS: The breast is heterogeneously dense, which may obscure small masses. A hydromark biopsy clip is present within the upper outer quadrant right breast about 7 cm from the nipple with interval decrease size of the known invasive carcinoma. There is also a barbell shaped biopsy clip within the upper outer quadrant subareolar region right breast. Stable consultations are noted throughout the right breast. No new discrete mass, area of architectural distortion or suspicious microcalcifications. ULTRASOUND TECHNIQUE: Multiple real-time shin-scale images of bilateral breast were obtained. Color Doppler was used to assess vascular flow. ULTRASOUND FINDINGS: Right breast: Known invasive carcinoma the 9:00 position zone 2-3 measures 1.9 x 0.7 x 1.8 cm about 7.5 cm from the nipple and previously measured 2.5 x 2.2 x 3.0 cm. The biopsy clip is noted along the anterior margin of this mass. Previously biopsied right breast DCIS/LCIS at the 10-11 o'clock positions of the areolar region demonstrates post biopsy changes including biopsy clip within overall measurement of 0.4 x 0.3 x 0.47 m previously measuring 0.7 x 0.5 x 0.8 cm. Left breast: Previously described incidentally noted probably benign structure the 4:00 position zone 1 measures 1.2 x 0.3 x 1.2 cm previously measuring 1.4 x 0.5 x 1.8 cm. IMPRESSION: 1. Interval decreased size of the known invasive carcinoma at the 9:00 position zone 2-3 right breast consistent with response to therapy. 2. Decrease size of known DCIS at the 10 to 11:00 position subareolar region. 3. Previously described incidental probably benign structure at the 4:00 position zone 1 left breast is slightly smaller in size. Recommend repeat ultrasound in 6 months. BI-RADS: 6: Known biopsy proven malignancy Recommendation: Surgical excision when clinically appropriate. Recommendation Laterality: Right O DIAGNOSTIC RIGHT Observed: 02/19/2018 Status: F Source: [facility] 12:37 PM [facility] REPOSITORY EXAM: MAMMO DIAGNOSTIC RIGHT, US BREAST LIMITED BILATERAL, 02/19/2018 11:00 AM (accession [id number]), 02/19/2018 12:22 PM (accession [id number]) CLINICAL INDICATIONS: 72-year-old female presenting with known right breast invasive ductal carcinoma and right breast DCIS/LCIS on neoadjuvant chemotherapy presenting for resizing. Six-month follow-up of probably benign left breast structures. COMPARISON: Bilateral mammogram February 19, 2018, July 30, 2017, June 08, 2013 and bilateral breast ultrasound September 02, 2017. MAMMOGRAM TECHNIQUE: Digital MLO and CC views of the right breast were obtained. Computer aided detection was utilized. MAMMOGRAPHIC FINDINGS: The breast is heterogeneously dense, which may obscure small masses. A hydromark biopsy clip is present within the upper outer quadrant right breast about 7 cm from the nipple with interval decrease size of the known invasive carcinoma. There is also a barbell shaped biopsy clip within the upper outer quadrant subareolar region right breast. Stable consultations are noted throughout the right breast. No new discrete mass, area of architectural distortion or suspicious microcalcifications. ULTRASOUND TECHNIQUE: Multiple real-time shin-scale images of bilateral breast were obtained. Color Doppler was used to assess vascular flow. ULTRASOUND FINDINGS: Right breast: Known invasive carcinoma the 9:00 position zone 2-3 measures 1.9 x 0.7 x 1.8 cm about 7.5 cm from the nipple and previously measured 2.5 x 2.2 x 3.0 cm. The biopsy clip is noted along the anterior margin of this mass. Previously biopsied right breast DCIS/LCIS at the 10-11 o'clock positions of the areolar region demonstrates post biopsy changes including biopsy clip within overall measurement of 0.4 x 0.3 x 0.47 m previously measuring 0.7 x 0.5 x 0.8 cm. Left breast: Previously described incidentally noted probably benign structure the 4:00 position zone 1 measures 1.2 x 0.3 x 1.2 cm previously measuring 1.4 x 0.5 x 1.8 cm. IMPRESSION: 1. Interval decreased size of the known invasive carcinoma at the 9:00 position zone 2-3 right breast consistent with response to therapy. 2. Decrease size of known DCIS at the 10 to 11:00 position subareolar region. 3. Previously described incidental probably benign structure at the 4:00 position zone 1 left breast is slightly smaller in size. Recommend repeat ultrasound in 6 months. BI-RADS: 6: Known biopsy proven malignancy Recommendation: Surgical excision when clinically appropriate. Recommendation Laterality: Right ORY AND PHYSICAL Observed: 02/16/2018 Status: F Source: [facility] EXAM 3:17 PM [facility] REPOSITORY [facility] Medical Records Department [address] [place] [address] History and Physical 02/12/18 1325 MR#: [id number] Acct: [id number] Name: NURYS DIAZ Rep #: [id number] : 1945 72 From: Lindsay Bueno PCP: Andrei Asher MD Status: ADM IN Y Location: [place] [id number] ADDENDUM by Lindsay Bueno on 02/16/18 at 5096 Code Visit Procedures: 48033 Advncd Care Plan 30 Min - Did not get added initially. Please add [id number]. 02/16/18 1517 <Electronically signed by Lindsay Bueno > Date Lindsay Bueno cc: Lindsay Bueno; Andrei Asher MD * Signed Problem List (1) Diarrhea Status: Acute Qualifiers: Diarrhea type: unspecified type Qualified Code(s): R19.7 - Diarrhea, unspecified (2) Chemotherapy-induced nausea Status: Acute (3) Asthma with COPD Status: Chronic (4) Tobacco use Status: Chronic (5) History of alcohol abuse Status: Chronic (6) Prediabetes Status: Chronic (7) Hypothyroidism (acquired) Status: Chronic (8) Breast cancer, right breast Status: Chronic Qualifiers: Breast location: upper outer quadrant of breast Estrogen receptor status: positive Patient sex: female Qualified Code(s): C50.411 - Malignant neoplasm of upper-outer quadrant of right female breast; Z17.0 - Estrogen receptor positive status [ER+] History of Present Illness Date of Admission: 02/12/18 Chief Complaint: Malaise, Weakness, Diarrhea, Electrolyte disturbances The patient is a 72 y/o F w/ PMHx: Asthma w/ Suspected Chronic COPD, Ongoing Tobacco use, Prediabetes, History of EtOH Abuse, Hyperthyroidism s/p irradiation-->hypothyroidism, 07/2017 Dx R Breast CA right breast specifically invasive ductal carcinoma, and metastatic disease in Right Axillary lymph node, ER/NM positive, HER-2 3+ positive following w/ Dr. Hoyt who presents to the [facility] ED on 02/12/18 per recommendation of oncology with history of recent treatment change to C5D1 on 02/03/2018 with following onset more severe than prior nausea, emesis and profuse diarrhea starting on 02/08/18 and ongoing without improvement w/ imodium administration with Oncology visit x 3 with notable hypokalemia on day of current presentation prompting referral. . She developed nausea/vomiting and watery diarrhea on 02/08/2018. She was noted to have had her stool assessed for c-diff per Oncology office at onset which was noted to be negative. She was also given IVF supplementation in their office but did not improve. She notes she has only been able to tolerate clears and has had no appetite. In the ED work-up included T 97.7, heart rate 86, BP 116/64, respiratory rate 16, 100% on room air, recent oncology obtained CBC with WBC 15.7, hemoglobin 11, platelet 179 with noted recent administration of Neulasta, CMP with potassium 2.4, glucose 118, AST/ALT 13/24, alkaline phosphatase 140, EKG with nonspecific ST and T-wave changes. In the emergency room patient administered potassium chloride 40 mEq IV, normal saline 1 L, Zofran. Past Medical History Past Medical History (Chronic Problems): Chronic Problems (Last Reviewed 02/12/18 @ 11:29 by Didi Chahal) Breast cancer, right breast (Chronic) Asthma with COPD (Chronic) Tobacco use (Chronic) History of alcohol abuse (Chronic) Prediabetes (Chronic) Hypothyroidism (acquired) (Chronic) Medical History: Medical History (Last Reviewed 02/12/18 @ 11:29 by Didi Chahal) Fracture, skull S02.91XA Abnormal breast biopsy R89.7 right breast 08/19/17 Asthma J45.909 Breast cancer C50.919 History of elevated glucose Z86.39 pre-diabetic Hyperthyroidism E05.90 port placement 10-28-17 Allergies No Known Allergies Allergy (Verified 02/12/18 12:19) Home Medications: Ambulatory Orders Medication Instructions Recorded Surgical History: Surgical History (Last Reviewed 02/12/18 @ 11:29 by Didi Chahal) H/O toe surgery Z98.890 cyst removed History of appendectomy Z90.49 History of back surgery Z98.890 Surgical History: - - Lumbar back surgery, left great toe surgery, port placement, appendectomy, possible intervention for fracture school as , right breast node 2 and lymph node biopsies. 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 Smoking Status: Current every day smoker Tobacco Use: Cigarettes - Patient continues to smoke, notes less than 1 pack per day since age 19 years old. Alcohol: Sober - Patient has been sober since October 2017 but prior to this drink at least 4 beers per day. Drugs: None - *Family History Maternal Family History: Family History (Last Reviewed 02/12/18 @ 11:29 by Didi Chahal) Brother Cancer Father Lung cancer Aunt Cancer History Items: - - Patient notes a maternal family history of heart disease including heart failure in addition to pulmonary ongoing issues during her lifetime with history of premature . Paternal Family History: Family History (Last Reviewed 02/12/18 @ 11:29 by Didi Chahal) Brother Cancer Father Lung cancer Aunt Cancer History Items: - - She notes a paternal family history of lung cancer but is unclear the type and states that it was outside the lung but progressed into the lung. Review of Systems Constitutional: Reports: Anorexia, Malaise, Weakness, Fatigue. Denies: Chills, Fever, Weight Change HEENT: Denies: Head Aches, Sinus Congestion, Sinus Drainage Cardiovascular: Denies: Chest Pain, Palpitations Respiratory: Reports: Shortness of breath upon exertion, Wheezing. Denies: Cough, Shortness of breath at rest, Sputum production Gastrointestinal: Reports: Abdominal Pain, Diarrhea, Nausea, Vomiting Genitourinary: Denies: Dysuria Musculoskeletal: Denies: Joint Pain, Joint Tenderness Skin: Denies: Rash, Wounds Neurological: Denies: Numbness, Tingling, Focal weakness Psychiatric: Denies: Anxiety, Depression, Homicidal Ideations, Suicidal Ideations Hematologic/ Lymphatic: Reports: Anemia. Denies: Easy Bruising, Easy Bleeding VTE Information - Inpt Only VTE Present on Admission: No VTE Mechan Device Prophylaxis: SCD's VTE Pharm Prophylaxis ordered?: Yes Patient Problems: Active and Suspected Problems (Last Reviewed 02/12/18 @ 11:29 by Didi Chahal) Educational circumstance (Acute) Chemotherapy-induced nausea (Acute) Encounter for monitoring cardiotoxic drug therapy (Acute) Chemotherapy management, encounter for (Acute) Exertional dyspnea (Acute) Chemotherapy management, encounter for (Acute) Diarrhea (Acute) - Physical Exam Vital Signs Temp Pulse Resp BP Pulse Ox 97.7 F L 109 H 18 119/59 L 98 02/12/18 12:17 02/12/18 13:21 02/12/18 13:21 02/12/18 13:21 02/12/18 13:21 Oxygen Delivery Method Room Air Weight: 162 lb Body Mass Index (BMI) 27.8 Assessment/Plan All Active Problems (Last Reviewed 02/12/18 @ 11:29 by Didi Chahal) Encounter for insertion of venous access port (Acute) Educational circumstance (Acute) Chemotherapy-induced nausea (Acute) Encounter for monitoring cardiotoxic drug therapy (Acute) Chemotherapy management, encounter for (Acute) Exertional dyspnea (Acute) Sore throat (Resolved) Perineal pain (Resolved) Chemotherapy management, encounter for (Acute) Diarrhea (Acute) The patient is a 72 y/o F w/ PMHx: Asthma w/ Suspected Chronic COPD, Ongoing Tobacco use, Prediabetes, History of EtOH Abuse, Hyperthyroidism s/p irradiation-->hypothyroidism, 07/2017 Dx R Breast CA right breast specifically invasive ductal carcinoma, and metastatic disease in Right Axillary lymph node, ER/NM positive, HER-2 3+ positive following w/ Dr. Hoyt who presents to the [facility] ED on 02/12/18 per recommendation of oncology with history of recent treatment change to C5D1 on 02/03/2018 with following onset more severe than prior nausea, emesis and profuse diarrhea starting on 02/08/18 and ongoing without improvement w/ imodium administration with Oncology visit x 3 with notable hypokalemia on day of current presentation prompting referral. (1) N/V/D, ? Gastroenteritis, Suspected more likely secondary to her New Chemotherapeutic Agent: Will admit to telemetry given severe hypokalemia, will continue aggressive hydration, will obtain c-diff, stool cx, O+P [place] with repeat AM CBC. Will not start antibiotics at this time given unclear source pending stool studies and as noted suspect more likely secondary to her chemotherapy. Anti-emetics, pain regimen PRN. (2) Invasive ductal carcinoma, R Breast w/ Metastatic Disease: 07/2017 Dx R Breast CA right breast specifically invasive ductal carcinoma, and metastatic disease in Right Axillary lymph node, ER/NM positive, HER-2 3+ positive following w/ Dr. Hoyt, mag 1.8, given 1 gm and obtain phos level with supplementation as needed. Presentation may be secondary to recent new chemotherapeutic agent. If stool cultures negative may consider initiation of immodium and if needed may consider sandostatin. (3) Hypokalemia: Admission K+ 2.4, supplementation given in the ED, will repeat level this evening and repeat level in AM. (4) Prediabetes: Hold oral home regimen, clears-->ADA diet once able to tolerate, accu checks w/ ISS, HgbA1c. (5) Asthma w/ Suspected Chronic COPD: ATC duonebs, PRN albuterol, HOB, IS parameters. (6) History of alcohol abuse: Patient sober since 10/2017 but prior to this noted at least 4 EtOH drinks per day prior. Maintain on MVI, thiamine and folic acid. (7) Tobacco Abuse: Encouraged cessation, inpatient consultation per RT, NR if desired. (8) Hypothyroidism: Continue home synthroid regimen, history of hyperthyroidism s/p irradiation. (9) GERD: Famotidine. (10) Chronic Anemia, Macrocytic, secondary to her Chemotherapeutic and #2: As noted given EtOH history also started on MVI, thiamine and folic acid. Fe panel, ferritin, vitamin B12 and folic acid levels pending. (11) DVT Prophylaxis: SCDs, lovenox. (12) CODE status: Patient does have living will in place and HCPOA. Currently it is listed as 1st her who has dementia thus it would pass to her 2nd listed her son. She notes this has not been updated in 20 years. Encouraged her to review this and make updates given the prolonged time of review. Discussed CODE status at length including difference between FULL code, DNR-CCA and DNR-CC status. Following discussions about the differences in these status, requested Full Code status w/ her Living Will to then transition to withdrawal of care if futile. Advanced Care Planning Face to Face Time: 17 minutes. Code Visit Inpatient E AND M: 25399 Init Hosp L3 02/12/18 1409 <Electronically signed by Lindsay Bueno > Date Lindsay Bueno Cosigner Signature: Date (if applicable) CC: Lindsay Bueno; Andrei Asher MD Signed 12 LEAD ELECTROCARDIOGRAM Observed: 02/16/2018 Status: F Source: [facility] 3:01 PM [facility] REPOSITORY [facility] Cardiovascular Services [address] [place] [address] 12 Lead EKG 02/12/18 1315 MR#: [id number] Acct: [id number] Name: NURYS DIAZ Rep #: [id number] : 1945 72 From: Thomas Paz MD Attending Dr: Jose Kirk M.D. Status: ADM IN Ordering Dr: Anna lÁvarez MD Date: 02/12/18 Location: [facility] Sex: F C Admitted: 02/12/18 Test Reason : ABN LABS Blood Pressure : / mmHG Vent. Rate : 090 BPM Atrial Rate : 090 BPM P-R Int : 150 ms QRS Dur : 084 ms QT Int : 378 ms P-R-T Axes : 034 072 257 degrees QTc Int : 462 ms Sinus rhythm with Premature atrial complexes ST AND T wave abnormality, consider inferior ischemia ST AND T wave abnormality, consider anterolateral ischemia Abnormal ECG Confirmed by JAZMINE SALDIVAR, THOMAS ([id number]), department editor KATLYN ALBERTO ([id number]) on 02/16/2018 3:01:11 PM Referred By: ANANT Confirmed By:THOMAS PAZ MD 02/16/18 1501 Date Thomas Paz MD CC: Andrei Asher MD; Jose Kirk M.D.; Anna Álvarez MD Signed CBC W/DIFF, AUTOMATED Collected: 02/16/2018 Status: F Source: [facility] 1:10 PM [facility] REPOSITORY TYPE CODE TESTS RESULT OUT OF RANGE REFERENCE UNITS LAB L100.1000 4.4-11.0 K/mm3 High WBC 14.3 LAB L100.1200 4.2-5.4 M/mm3 Low RBC 2.57 LAB L100.1300 12.0-15.0 g/dl Low HGB 9.3 LAB L100.1400 37-47 % Low HCT 27.6 LAB L100.1500 81-99 fL High MCV 107.4 LAB L100.1600 27.0-32.0 pg High MCH 36.2 LAB L100.1700 32-36 g/gl Normal MCHC 33.7 LAB L100.1810 11.6-14.6 % High RDW CV 20.2 LAB L100.1820 35.1-43.9 fl High RDW SD 75.2 LAB L100.1900 150-450 K/mm3 Low PLT 126 LAB L100.2000 6.2-12.0 fl Normal MPV 9.8 LAB L100.2100 47-70 % High NEUT% 82.8 LAB L100.2200 19-41 % Low LY% 10.4 LAB L100.2300 0-10 % Normal MONO% 5.4 LAB L100.2400 0-5 % Normal EO% 0.1 LAB L100.2500 0-1 % Normal BASO% 0.2 LAB L100.2550 0.0-0.9 % High IM GRAN % 1.100 Result Comment: IG% - Immature Granulocytes (promyelocytes, myelocytes and metamyelocytes) > 1% indicates that a LEFT SHIFT is Present. LAB L100.2620 2.0-7.7 X10 3/uL High Absolute Neut 11.9 LAB L100.2720 0.83-4.51 X10 3/ul Normal Absolute Lymph 1.49 LAB L100.4500 Normal SMEAR COMMENT COMMENT Result Comment: SLIDE SCANNED - 1+ ANISO. Performed By: #### L100.0100 #### [facility] [address]. [place], [place], [id number] COMPREHENSIVE METABOLIC Collected: 02/16/2018 Status: F Source: [facility] 1:10 PM [facility] REPOSITORY TYPE CODE TESTS RESULT OUT OF RANGE REFERENCE UNITS LAB L501.0100 74-106 mg/dL Normal GLU 90 Result Comment: Please note revised GLUCOSE reference range effective 2017. LAB L501.1000 7-18 mg/dL Low BUN 3 LAB L501.1100 0.55-1.02 mg/dL Low CREAT,SERUM 0.53 Result Comment: The validity of the calculated GFR AND GFRAA in patients over 70 years has not been determined. Clinical correlation is essential. LAB L501.1110 >60 mL/min Normal EST GFR 121 Result Comment: Non- GFR Calc LAB L501.1115 >60 mL/min Normal EST GFR - AA 146 Result Comment: GFR Calc LAB L501.1255 ml/min Normal Estimated CRCL 45.20 LAB L501.1300 10-20 RATIO Low BUN/CRE 5.6 LAB L501.1500 6.4-8. g/dL Low 2 T PROT 6.0 LAB L501.1800 3.2-5. g/dL Low 0 ALB 2.9 LAB L501.1950 2.2-4. g/dL Normal 2 GLOB 3.1 LAB L501.2000 0.9-2. RATIO Normal 4 A/G 0.9 LAB L501.2200 8.5-10 mg/dL Low .1 CA 7.9 LAB L501.4100 15-37 U/L Normal AST 16 LAB L501.4305 45-117 U/L High ALK P 139 LAB L501.4405 13-56 U/L Normal ALT 25 LAB L501.4600 0.20-1 mg/dL Normal .00 T BILI 0.60 LAB L501.5300 136-14 mmol/L Normal 5 NA 142 LAB L501.5600 3.5-5. mmol/L Normal 1 K 4.6 LAB L501.5900 98-107 mmol/L High CL 112 LAB L501.6100 21.0-3 mmol/L Normal 2.0 CO2 22.0 LAB L501.6200 5-15 Normal GAP 8 Performed By: #### L500.4050, L501.5200 #### [facility] [address] [place], [address] MAGNESIUM Collected: 02/16/2018 Status: F Source: [facility] 1:10 PM [facility] REPOSITORY TYPE CODE TESTS RESULT OUT OF RANGE REFERENCE UNITS LAB L501.5200 1.6-2.6 mg/dL Normal MG 1.7 Performed By: #### L500.4050, L501.5200 #### [facility] [address] [place], [address] DISCHARGE SUMMARY Observed: 02/16/2018 Status: F Source: [place] 1:03 PM [facility] REPOSITORY [facility] Medical Records Department [address] [place] [id number] Discharge Summary 02/16/18 1253 MR#: [id number] Acct: [id number] Name: NURYS DIAZ Rep #: [id number] : 1945 72 From: Jose Kirk MD PCP: Andrei Asher MD Status: ADM IN Y Location: [place] [address] Discharge Date and Diagnosis - Problem List Patient Problems: Active and Suspected Problems (Last Reviewed 02/13/18 @ 19:06 by Killian Duke MD) Nausea vomiting and diarrhea (Acute) r11.2 Large bowel obstruction (Acute) Ileus (Acute) Hypokalemia due to loss of potassium (Acute) Date of Admission: 02/12/18 Date of Discharge: 02/16/18 - Primary Discharge Diagnosis Active and Suspected Problems (Last Reviewed 02/13/18 @ 19:06 by Killian Duke MD) Nausea vomiting and diarrhea (Acute) r11.2 Hypokalemia large bowel obstruction Ileus - Secondary Discharge Diagnosis Chronic Problems (Last Reviewed 02/13/18 @ 19:06 by Killian Duke MD) Breast cancer, right breast (Chronic) Asthma with COPD (Chronic) Tobacco use (Chronic) History of alcohol abuse (Chronic) Prediabetes (Chronic) Hypothyroidism (acquired) (Chronic) Hospital Course and Treatment Operations: None Procedures: None Summary of Care Provided: The patient is a 72 year old F who is currently undergoing chemotherapy for stage II breast cancer. Admitted on account of persistent and intractable nausea, vomiting and diarrhea. This was deemed to be related and secondary to her chemotherapy and patient was treated symptomatically with antiemetics and IV fluids. After a day or two after symptoms initially appeared to be improving, patient developed worsening and increasing abdominal distension and worsening of vomiting. Bowel obstruction was suspected and so patient had KUB and CT which confirmed an ileus and no mechanical obstruction. Severe hypokalemia noted and this was aggressively repleted and ileus managed conservatively and general surgery consulted. Today patient is doing better now and tolerating regular diet it seems. She is stable for discharge and surgery is also ok with this.[] Discharge Diet: No Restrictions Discharge Activity: Return to Normal Activity, No Restrictions, May Drive Home Medications: Medications to take at Discharge Albuterol Aerosols [Ventolin Aerosols] 1 puff INHALATION DAILY 10/21/17 Albuterol Inhaler [Ventolin Hfa] 1 puff INHALATION DAILY 10/21/17 Fluticasone/Vilanterol [Breo Ellipta 200-25 Mcg INH] 1 puff INHALATION QODAY 10/21/17 Levothyroxine [Synthroid] 137 mcg PO DAILY 10/21/17 Metformin HCl [Metformin HCl ER] 500 mg PO DAILY 10/21/17 Dexamethasone [Decadron] 8 mg PO BID 63 Days #36 tab 10/30/17 Lidocaine/Prilocaine [Lidocaine-Prilocaine Cream] 30 gm TP DAILY PRN PRN 30 Days #1 cream..g. 10/30/17 Ondansetron HCl [Zofran] 4 mg PO Q8H PRN PRN 10 Days #30 tab 10/30/17 Primary Care Physician: Andrei Asher MD [Primary Care Provider] - Please Follow Up With: Andrei Asher MD Disposition: Home Minutes spent on discharge:: 36 Patient Condition:: Stable Medical Necessity - Tobacco Use Smoking Status: Current every day smoker Tobacco Use: Cigarettes Meaningful Use Info Meaningful Use Diagnoses (Choose all that apply): None applicable Code Visit Inpatient E AND M: 39377 Disch Hosp 02/16/18 1303 <Electronically signed by Jose Kirk MD> Date Jose Kirk MD Cosigner Signature (if applicable): Date CC: Andrei Asher MD; Jose Kirk M.D. Signed DISCHARGE INSTRUCTION Observed: 02/16/2018 Status: F Source: [facility] 12:53 PM [facility] REPOSITORY [facility] Medical Records Department [address] [place] [address] Instructions for Home/Discharge Instructions 02/16/18 1252 MR#: [id number] Acct: [id number] Name: NURYS DIAZ Rep #: [id number] : 1945 72 From: Jose Kirk MD PCP: Andrei Asher MD Status: ADM IN - Discharge Diagnoses Current Active Problems: Current Active and Chronic Problems (Last Reviewed 02/13/18 @ 19:06 by Killian Duke MD) Asthma with COPD (Chronic) Tobacco use (Chronic) History of alcohol abuse (Chronic) Prediabetes (Chronic) Hypothyroidism (acquired) (Chronic) Nausea vomiting and diarrhea (Acute) r11.2 You will use the following diet at home:: No restrictions, Regular Your food should be the consistency of: Regular Discharge Activity: Return to Normal Activity, No Restrictions, May Drive Allergies/Adverse Reactions: Allergies No Known Allergies Allergy (Verified 02/12/18 12:19) Medications to take at Discharge Albuterol Aerosols [Ventolin Aerosols] 1 puff INHALATION DAILY 10/21/17 Albuterol Inhaler [Ventolin Hfa] 1 puff INHALATION DAILY 10/21/17 Fluticasone/Vilanterol [Breo Ellipta 200-25 Mcg INH] 1 puff INHALATION QODAY 10/21/17 Levothyroxine [Synthroid] 137 mcg PO DAILY 10/21/17 Metformin HCl [Metformin HCl ER] 500 mg PO DAILY 10/21/17 Dexamethasone [Decadron] 8 mg PO BID 63 Days #36 tab 10/30/17 Lidocaine/Prilocaine [Lidocaine-Prilocaine Cream] 30 gm TP DAILY PRN PRN 30 Days #1 cream..g. 10/30/17 Ondansetron HCl [Zofran] 4 mg PO Q8H PRN PRN 10 Days #30 tab 10/30/17 Primary Care Physician: Andrei Asher MD [Primary Care Provider] - Test Results: Test results from this visit will be discussed in further detail at your follow-up appointment, if applicable. Please Follow Up With: Andrei Asher MD Proposed Discharge Date: 02/16/18 02/16/18 9363 <Electronically signed by Jose Kirk MD> Date Jose Kirk MD CC: Killian Duke MD; Andrei Asher MD; Ignacio Hoyt MD; Idris Bull MD CONSULTATION Observed: 02/16/2018 Status: F Source: [facility] 11:49 AM [facility] REPOSITORY [facility] Medical Records Department [address] [place] [address] Consultation 02/12/18 1551 MR#: [id number] Acct: [id number] Name: NURYS DIAZ Rep #: [id number] : 1945 72 From: Eloise New BASIC ACOUSTIC ANALYST-C PCP: Andrei Asher MD Status: ADM IN Y Location: [place] [address] Subjective Date of Service:: 02/12/18 Chief Complaint: Breast cancer History of Present Illness: Ms. Nurys Diaz is a very pleasant 72-year-old woman with a PMH for COPD, tobacco use and hypothyroidism, diagnosed with invasive ductal carcinoma, stage IIB on 08/22/17. 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 No other evidence to suggest distant metastatic disease. Thus, she began neoadjuvant, HER2 targeted therapy with Taxotere/Cytoxan/Perjeta/Herceptin on 11/10/17. Has tolerated fair with the exception of fatigue, nausea-typically well controlled with PO antiemetics and diarrhea-again typically well controlled with supportive medications. She received cycle 5 on 02/03/18, supported with G-CSF on day 2. Developed vomiting and diarrhea on 02/08/18. Was evaluated in the ambulatory clinic setting, supported with IV hydration. Stool for Cdiff was found to be negative at that time, however diarrhea persisted. Found to exhibit severe hypokalemia, taken to [facility] ED and subsequently admitted for management of hypokalemia and diarrhea. Upon entering the room, patient is sitting upright in bed eating sherbet. States I feel better already in terms of dizziness and nausea. Although admits to 2 episodes of diarrhea in the last 2 hours. Continues to describe as watery and black. Otherwise denies any outstanding complaints since she was evaluated by me earlier today in clinic. Past Medical History: Chronic Problems (Last Reviewed 02/12/18 @ 11:29 by Didi Chahal) Breast cancer, right breast (Chronic) Asthma with COPD (Chronic) Tobacco use (Chronic) History of alcohol abuse (Chronic) Prediabetes (Chronic) Hypothyroidism (acquired) (Chronic) Past Medical/Surgical History: Past Medical History - Most Recent Inpatient Visit Past Medical History Start: 02/12/18 14:30 Text: Status: Complete Freq: ONCE Protocol: Document 02/12/18 14:59 [facility] [place]Rec: 02/12/18 15:03 [facility] [id number] BMI Required to complete PMH What is Patient's BMI 28.1 Past Medical History Unable History Recalled Yes Query Text:Pt Unable/Family Not Present Neurologic Medical History Hx Stroke/TIA No Hx Dementia/Alzheimer's No Hx Parkinson's Disease No Hx Seizures No Hx Multiple Sclerosis No Hx Migraines Yes Cardiac Medical History VTE Present on Admission No Hx of Deep Vein Thrombosis/VTE/PE No Hx Hypertension No Hx Chest Pain/Angina No Hx Heart Attack No Hx Cardiac Surgery/Stents/Etc. No Hx Heart Failure No Hx Pacemaker/AICD No Hx Irregular Heartbeat and/or Afib No Hx Anticoagulant Therapy No Query Text:(Coumadin, Aspirin, Plavix, Xarelto, etc.) Hx Pain in Legs when Walking/Leg Cramps No Respiratory Medical History Hx COPD No Hx Emphysema No Hx Smoking Yes Smoking Status Current every day smoker Tobacco Use Cigarettes Years Smoking 40 Hx Smoking Cessation Counseling No Hx Smoking Exposure Yes Hx Tobacco Use in last 12 months Yes Sent to [facility] Yes Hx of Pipe Smoking No Hx of Cigar Smoking No Hx Sleep Apnea No Do you snore loudly (louder than talking No or can be heard through closed doors)? Do you often feel tired/ fatigued/ No sleepy during daytime? Has anyone observed you stop breathing No during sleep? STOP Results Negative GI Medical History Hx Ulcer No Hx Hepatitis No Hx Cirrhosis No Hx GI Bleed No Hx Unplanned Weight Loss Yes Genitourinary Medical History Indwelling Catheter in Place on Arrival/ No Admission Hx Renal Disease No Hx Dialysis No Musculoskeletal History Hx Arthritis Yes: fingers Hx Rheumatoid Arthritis No Endocrine Medical History Hx Diabetes Yes: pre diabetes Hx Thyroid Disease Yes: on meds Hematologic Medical History Hx of Blood Transfusion No Hx of Transfusion in last 3 Months No Ever experience any problems with No transfusion(s)? Hx of Preganancy in last 3 Months No Nurse Filling Out Transfusion AND MORR Questions: Date: 02/12/18 Time: 15:02 Psycho/Social Medical History Hx Depression No Hx Anxiety No Hx Behavior Disorder No Hx Alcohol Use Yes: 4 beers and several drinks daily Hx Substance Use No Other Medical History Hx Blood Disorders No Hx Anemia No Hx Cancer Yes: BREAST Hx Drug Resistant Organism No Wound/Pressure Injury Present on Arrival No /Admission Query Text:If yes, chart assessment in Shift/Clinical Findings Central Line/PICC/VAD Present on Arrival Yes /Admission Antibiotics within last 7 days? No Methicillin Resistant Staphylococcus aureus Screening Active MRSA No Risk for Readmission Number of Risk Factors 6 At Risk for Readmission Patient is At Risk For Readmission Patient is eligible for Call Back Y Past Medical History (Last Reviewed 02/12/18 @ 11:29 by Didi Chahal) Fracture, skull (Acute) Abnormal breast biopsy (Acute) Asthma (Acute) Breast cancer (Acute) History of elevated glucose (Acute) Hyperthyroidism (Acute) port placement (Acute) Past Surgical History (Last Reviewed 02/12/18 @ 11:29 by Didi Chahal) H/O toe surgery (Acute) History of appendectomy (Acute) History of back surgery (Acute) Maternal Family History: Family History (Last Reviewed 02/12/18 @ 11:29 by Didi Chahal) Brother Cancer Father Lung cancer Aunt Cancer Family History: - - Patient notes a maternal family history of heart disease including heart failure in addition to pulmonary ongoing issues during her lifetime with history of premature . Paternal Family History: Family History (Last Reviewed 02/12/18 @ 11:29 by Didi Chahal) Brother Cancer Father Lung cancer Aunt Cancer Family History: - - She notes a paternal family history of lung cancer but is unclear the type and states that it was outside the lung but progressed into the lung. - Social History Lives: Spouse/ Significant Other - Patient lives with her spouse who she notes is in the initial stages of mild to moderate dementia. Smoking Status: Current every day smoker Tobacco Use: Cigarettes Alcohol: Sober - Patient has been sober since October 2017 but prior to this drink at least 4 beers per day. Drugs: None Allergies/Adverse Reactions: Allergy/AdvReac Type Severity Reaction Status Date / Time No Known Allergies Allergy Verified 02/12/18 12:19 Review of Systems Constitutional:: Reports: Weakness, Fatigue. Denies: Fever, Sweats, Weight loss, Appetite change, Chills Cardiovascular:: Reports: Dyspnea on exertion. Denies: Chest pain, Palpitations, Orthopnea, PND, Shortness of breath Respiratory: Reports: Cough, Wheezing. Denies: Hemoptysis, Shortness of Breath Gastrointestinal:: Reports: Nausea, Diarrhea. Denies: Abdominal pain, Vomiting, Constipation, Hematochezia Genitourinary: Denies: Dysuria, Hematuria, Abnormal vaginal bleeding, Flank pain Musculoskeletal:: Denies: Back pain, Myalgia, Arthralgia Skin: Denies: Rash, Skin Changes, Wounds Neurological:: Denies: Headache, Dizziness, Numbness, Tingling, Visual changes, Tinnitus, Hearing loss Psychiatric: Denies: Anxiety, Depression, Homicidal Ideations, Suicidal Ideations Vital Signs Height 5 ft 4 in Weight: 163 lb 9.328 oz Weight in Pounds 163.6 lbs Pulse Ox 99 - Physical Exam General: Alert, Oriented x3, No apparent distress HEENT: Atraumatic, Normocephalic, - - wears glasses Oropharynx:: Dry mucosa. Negative for: Ulcerated lesions Neck:: Supple, Trachea midline. Negative for: JVD, bilateral Cardiac:: Regular rate, Regular rhythm, Normal S1, Normal S2 Lungs: Wheezes - faint expiratory, Diminished, Excusion symmetrical. Negative for: Rhonchi, Tachypneic, Increased respiratory effort Abdomen:: Bowel sounds x 4, Soft, Non-tender, Non-distended. Negative for: Hepatosplenomegaly Extremities:: Negative for: Cyanosis, Edema Neurological: Neuro grossly intact Skin:: - - port right upper chest accessed with gripper covered with DSD. Negative for: Lesions, Rash, Petechiae, Ecchymosis Psychiatric:: Appropriate affect, Euthymic Lymphatics:: Negative for: Cervical lymphadenopathy, Supraclavicular lymphadenopathy, Axillary lymphadenopathy Assessment and Plan 1. Stage IIB(cT2 cN1 M0), invasive ductal carcinoma upper outer quadrant right breast, ER/NM positive, Her2 3+ positive by IHC- Began neoadjuvant Taxotere/carboplatin/Perjeta/Herceptin on 11/10/17. Overall, has tolerated treatment and Neulasta well with c/o N/V/D controlled with Zofran and Imodium and moderate to severe fatigue although subsequent to cycle 5 administered on 02/03/18 toxicity seems to have increased. Echo 01/06/18 shows normal LV function and ejection fraction 55%. CBC values are acceptable for GOPI, leukocytosis reflects support with Neulasta on day 2. 2. Hypokalemia secondary to diarrhea- as evidenced by K 2.4. Being addressed by primary team. 3. Diarrhea- Cdiff obtained 02/10/18 negative. It appears orders have been placed for enteric pathogen panel, cx and O AND P. May consider adding guaiac given her description of black stools. Then if stools studies negative, aggressive management at least initially, with loperamide. 4. Chemotherapy induced anemia- As evidenced by Hgb 11 today. Continue to monitor. She was in agreement with the aforementioned plan. Eloise New, MSN, [employer], AOCNP Medications: Medications Added to Medication List This Visit 0.9% Normal Saline 1,000 ml Med 02/12/18 15:20 Active IV 150 mls/hr 0.9% Normal Saline 1,000 ml Med 02/12/18 15:20 Active Primary Care Provider: Andrei Asher MD Referring Provider: - Problem List (1) Breast cancer, right breast Status: Chronic Qualifiers: Breast location: upper outer quadrant of breast Estrogen receptor status: positive Patient sex: female Qualified Code(s): C50.411 - Malignant neoplasm of upper-outer quadrant of right female breast; Z17.0 - Estrogen receptor positive status [ER+] (2) Diarrhea Status: Acute Qualifiers: Diarrhea type: unspecified type Qualified Code(s): R19.7 - Diarrhea, unspecified (3) Chemotherapy-induced nausea Status: Acute 02/16/18 1149 <Electronically signed by Eloise ALY> Date Eloise ALY Cosigner Signature (if applicable): Date CC: Killian Duke MD; Andrei Asher MD; Ignacio Hoyt MD; Idris Bull MD Signed BEDSIDE GLUCOSE Collected: 02/16/2018 Status: F Source: MAE 11:36 AM [facility] REPOSITORY TYPE CODE TESTS RESULT OUT OF RANGE REFERENCE UNITS LAB L501.080 70-110 mg/dL Normal BEDSIDE GLU 71 Result Comment: MANAGEMENT OF PATIENT CARE PER NURSING PROTOCOL Performed By: #### L501.080 #### [facility] Point of Care [address] [place] [address] BEDSIDE GLUCOSE Collected: 02/16/2018 Status: F Source: MAE 6:32 AM [facility] REPOSITORY TYPE CODE TESTS RESULT OUT OF RANGE REFERENCE UNITS LAB L501.080 70-110 mg/dL Normal BEDSIDE GLU 73 Result Comment: MANAGEMENT OF PATIENT CARE PER NURSING PROTOCOL Performed By: #### L501.080 #### [facility] Point of Care [address] [place] [address] BASIC METABOLIC Collected: 02/16/2018 Status: F Source: MAE PROFILE (BMP) 6:10 AM [facility] REPOSITORY TYPE CODE TESTS RESULT OUT OF RANGE REFERENCE UNITS LAB L501.0100 74-106 mg/dL Low GLU 68 Result Comment: Please note revised GLUCOSE reference range effective 2017. LAB L501.1000 7-18 mg/dL Low BUN 2 LAB L501.1100 0.55-1.02 mg/dL Low CREAT,SERUM 0.48 Result Comment: The validity of the calculated GFR AND GFRAA in patients over 70 years has not been determined. Clinical correlation is essential. LAB L501.1110 >60 mL/min Normal EST GFR 137 Result Comment: Non- GFR Calc LAB L501.1115 >60 mL/min Normal EST GFR - AA 166 Result Comment: GFR Calc LAB L501.1255 ml/min Normal Estimated CRCL 45.20 LAB L501.1300 10-20 RATIO Low BUN/CRE 4.2 LAB L501.2200 8.5-10 mg/dL Low .1 CA 8.0 LAB L501.5300 136-14 mmol/L Normal 5 NA 143 LAB L501.5600 3.5-5. mmol/L Normal 1 K 4.6 LAB L501.5900 98-107 mmol/L High CL 113 LAB L501.6100 21.0-3 mmol/L Normal 2.0 CO2 25.0 LAB L501.6200 5-15 Normal GAP 5 Performed By: #### L500.2500 #### [facility] [address] [place], [place], [id number] BEDSIDE GLUCOSE Collected: 02/15/2018 Status: F Source: MAE 10:45 PM [facility] REPOSITORY TYPE CODE TESTS RESULT OUT OF RANGE REFERENCE UNITS LAB L501.080 70-110 mg/dL Normal BEDSIDE GLU 95 Result Comment: MANAGEMENT OF PATIENT CARE PER NURSING PROTOCOL Performed By: #### L501.080 #### [facility] Point of Care [address] [place] [address] BEDSIDE GLUCOSE Collected: 02/15/2018 Status: F Source: MAE 5:46 PM [facility] REPOSITORY TYPE CODE TESTS RESULT OUT OF RANGE REFERENCE UNITS LAB L501.080 70-110 mg/dL Normal BEDSIDE GLU 74 Result Comment: MANAGEMENT OF PATIENT CARE PER NURSING PROTOCOL Performed By: #### L501.080 #### [facility] Point of Care [address] [place] [address] BEDSIDE GLUCOSE Collected: 02/15/2018 Status: F Source: MAE 4:15 PM [facility] REPOSITORY TYPE CODE TESTS RESULT OUT OF REFERENCE UNITS RANGE LAB L501.080 70-110 mg/dL Low BEDSIDE GLU 66 Result Comment: MANAGEMENT OF PATIENT CARE PER NURSING PROTOCOL Performed By: #### L501.080 #### [facility] Point of Care [address] [place] [address] BEDSIDE GLUCOSE Collected: 02/15/2018 Status: F Source: MAE 10:33 AM [facility] REPOSITORY TYPE CODE TESTS RESULT OUT OF RANGE REFERENCE UNITS LAB L501.080 70-110 mg/dL Normal BEDSIDE GLU 81 Result Comment: MANAGEMENT OF PATIENT CARE PER NURSING PROTOCOL Performed By: #### L501.080 #### [facility] Point of Care [address] [place] [address] BEDSIDE GLUCOSE Collected: 02/15/2018 Status: F Source: MAE 6:39 AM [facility] REPOSITORY TYPE CODE TESTS RESULT OUT OF RANGE REFERENCE UNITS LAB L501.080 70-110 mg/dL Normal BEDSIDE GLU 80 Result Comment: MANAGEMENT OF PATIENT CARE PER NURSING PROTOCOL Performed By: #### L501.080 #### [facility] Point of Care [address] [place] [address] RENAL PROFILE Collected: 02/15/2018 Status: F Source: MAE 5:36 AM [facility] REPOSITORY TYPE CODE TESTS RESULT OUT OF RANGE REFERENCE UNITS LAB L501.0100 74-106 mg/dL Normal GLU 80 Result Comment: Please note revised GLUCOSE reference range effective 2017. LAB L501.1000 7-18 mg/dL Low BUN 3 LAB L501.1100 0.55-1.02 mg/dL Low CREAT,SERUM 0.41 Result Comment: The validity of the calculated GFR AND GFRAA in patients over 70 years has not been determined. Clinical correlation is essential. LAB L501.1110 >60 mL/min Normal EST GFR 162 Result Comment: Non- GFR Calc LAB L501.1115 >60 mL/min Normal EST GFR - AA 196 Result Comment: GFR Calc LAB L501.1255 ml/min Normal Estimated CRCL 45.20 LAB L501.1300 10-20 RATIO Low BUN/CRE 7.3 LAB L501.1800 3.2-5. g/dL Low 0 ALB 2.7 LAB L501.2200 8.5-10 mg/dL Low .1 CA 7.7 LAB L501.2300 2.5-4. mg/dL Normal 9 PHOS 2.9 LAB L501.5300 136-14 mmol/L Normal 5 NA 141 LAB L501.5600 3.5-5. mmol/L Low 1 K 3.3 LAB L501.5900 98-107 mmol/L Normal CL 107 LAB L501.6100 21.0-3 mmol/L Normal 2.0 CO2 24.0 Performed By: #### L500.3600 #### [facility] [address] [place], [address] BEDSIDE GLUCOSE Collected: 02/14/2018 Status: F Source: MAE 10:29 PM [facility] REPOSITORY TYPE CODE TESTS RESULT OUT OF RANGE REFERENCE UNITS LAB L501.080 70-110 mg/dL Normal BEDSIDE GLU 85 Result Comment: MANAGEMENT OF PATIENT CARE PER NURSING PROTOCOL Performed By: #### L501.080 #### [facility] Point of Care [address] [place] [address] BEDSIDE GLUCOSE Collected: 02/14/2018 Status: F Source: MAE 3:19 PM [facility] REPOSITORY TYPE CODE TESTS RESULT OUT OF RANGE REFERENCE UNITS LAB L501.080 70-110 mg/dL Normal BEDSIDE GLU 71 Result Comment: MANAGEMENT OF PATIENT CARE PER NURSING PROTOCOL Performed By: #### L501.080 #### [facility] Point of Care [address] [place], [place] [id number] BEDSIDE GLUCOSE Collected: 02/14/2018 Status: F Source: MAE 2:33 PM [facility] REPOSITORY TYPE CODE TESTS RESULT OUT OF REFERENCE UNITS RANGE LAB L501.080 70-110 mg/dL Low BEDSIDE GLU 69 Result Comment: MANAGEMENT OF PATIENT CARE PER NURSING PROTOCOL Performed By: #### L501.080 #### [facility] Point of Care [address] [place] [address] BEDSIDE GLUCOSE Collected: 02/14/2018 Status: F Source: MAE 10:42 AM [facility] REPOSITORY TYPE CODE TESTS RESULT OUT OF RANGE REFERENCE UNITS LAB L501.080 70-110 mg/dL Normal BEDSIDE GLU 73 Result Comment: MANAGEMENT OF PATIENT CARE PER NURSING PROTOCOL Performed By: #### L501.080 #### [facility] Point of Care [address] [place], [place] [id number] BEDSIDE GLUCOSE Collected: 02/14/2018 Status: F Source: MAE 6:35 AM [facility] REPOSITORY TYPE CODE TESTS RESULT OUT OF RANGE REFERENCE UNITS LAB L501.080 70-110 mg/dL Normal BEDSIDE GLU 80 Result Comment: MANAGEMENT OF PATIENT CARE PER NURSING PROTOCOL Performed By: #### L501.080 #### [facility] Point of Care [address] [place], [place] [id number] CBC W/DIFF, AUTOMATED Collected: 02/14/2018 Status: F Source: MAE 6:00 AM [facility] REPOSITORY Order Comment: SPECIMEN OBTAINED FROM LINE DRAW TYPE CODE TESTS RESULT OUT OF RANGE REFERENCE UNITS LAB L100.1000 4.4-11.0 K/mm3 High WBC 18.0 LAB L100.1200 4.2-5.4 M/mm3 Low RBC 2.47 LAB L100.1300 12.0-15.0 g/dl Low HGB 8.4 LAB L100.1400 37-47 % Low HCT 25.7 LAB L100.1500 81-99 fL High MCV 104.0 LAB L100.1600 27.0-32.0 pg High MCH 34.0 LAB L100.1700 32-36 g/gl Normal MCHC 32.7 LAB L100.1810 11.6-14.6 % High RDW CV 20.3 LAB L100.1820 35.1-43.9 fl High RDW SD 75.9 LAB L100.1900 150-450 K/mm3 Normal PLT 150 LAB L100.2000 6.2-12.0 fl Normal MPV 9.8 LAB L100.2100 47-70 % High NEUT% 87.5 LAB L100.2200 19-41 % Low LY% 6.8 LAB L100.2300 0-10 % Normal MONO% 4.8 LAB L100.2400 0-5 % Normal EO% 0.0 LAB L100.2500 0-1 % Normal BASO% 0.1 LAB L100.2550 0.0-0.9 % Normal IM GRAN % 0.800 Result Comment: IG% - Immature Granulocytes (promyelocytes, myelocytes and metamyelocytes) > 1% indicates that a LEFT SHIFT is Present. LAB L100.2620 2.0-7.7 X10 3/uL Absolute Neut High 15.8 LAB L100.2720 0.83-4.51 X10 3/ul Absolute Lymph Normal 1.22 LAB L100.4500 SMEAR COMMENT Normal SCAN LAB L100.7300 ANISO Normal 1+ LAB L100.7500 POLYCHROMASIA Normal 1+ LAB L100.7800 MACROCYTE Normal 1+ Performed By: #### L100.0100 #### [facility] [address] [place], [address] COMPREHENSIVE METABOLIC Collected: 02/14/2018 Status: F [facility] AM [facility] REPOSITORY Order Comment: SPECIMEN OBTAINED FROM LINE DRAW TYPE CODE TESTS RESULT OUT OF RANGE REFERENCE UNITS LAB L501.0100 74-106 mg/dL Normal GLU 76 Result Comment: Please note revised GLUCOSE reference range effective 2017. LAB L501.1000 7-18 mg/dL Low BUN 4 LAB L501.1100 0.55-1.02 mg/dL Low CREAT,SERUM 0.47 Result Comment: The validity of the calculated GFR AND GFRAA in patients over 70 years has not been determined. Clinical correlation is essential. LAB L501.1110 >60 mL/min Normal EST GFR 140 Result Comment: Non- GFR Calc LAB L501.1115 >60 mL/min Normal EST GFR - AA 169 Result Comment: GFR Calc LAB L501.1255 ml/min Normal Estimated CRCL 45.20 LAB L501.1300 10-20 RATIO Low BUN/CRE 8.5 LAB L501.1500 6.4-8. g/dL Low 2 T PROT 5.3 LAB L501.1800 3.2-5. g/dL Low 0 ALB 2.5 LAB L501.1950 2.2-4. g/dL Normal 2 GLOB 2.8 LAB L501.2000 0.9-2. RATIO Normal 4 A/G 0.9 LAB L501.2200 8.5-10 mg/dL Low .1 CA 7.3 LAB L501.4100 15-37 U/L Normal AST 19 Result Comment: Moderate Hemolysis, Result may be falsely increased. LAB L501.4305 45-117 U/L High ALK P 123 LAB L501.4405 13-56 U/L Normal ALT 21 LAB L501.4600 0.20-1.00 mg/dL Normal T BILI 0.30 LAB L501.5300 136-145 mmol/L Normal NA 142 LAB L501.5600 3.5-5.1 mmol/L Low K 3.2 Result Comment: Moderate Hemolysis, Result may be falsely increased. LAB L501.5900 98-107 mmol/L High CL 111 LAB L501.6100 21.0-32.0 mmol/L Normal CO2 24.0 LAB L501.6200 5-15 Normal 7 GAP Performed By: #### L500.4050 #### [facility] [address] [place], [address] BEDSIDE GLUCOSE Collected: 02/13/2018 Status: F Source: MAE 10:04 PM [facility] REPOSITORY TYPE CODE TESTS RESULT OUT OF RANGE REFERENCE UNITS LAB L501.080 70-110 mg/dL Normal BEDSIDE GLU 104 Result Comment: MANAGEMENT OF PATIENT CARE PER NURSING PROTOCOL Performed By: #### L501.080 #### [facility] Point of Care [address] [place] [address] CONSULTATION Observed: 02/13/2018 Status: F Source: DODGE 7:11 PM [facility] REPOSITORY [facility] Medical Records Department [address] [place] [address] Consultation 02/13/18 1904 MR#: [id number] Acct: [id number] Name: NURYS DIAZ Rep #: [id number] : 1945 72 From: Killian Duke MD PCP: Andrei Asher MD Status: ADM IN Y Location: [place] [address] Problem List (1) Nausea vomiting and diarrhea Status: Acute Comment: r11.2 Reason for Consult Date of Consultation: 02/13/18 History of Present Illness: Ms. Nurys Diaz is a very pleasant 72-year-old woman with a PMH for COPD, tobacco use and hypothyroidism, diagnosed with invasive ductal carcinoma, stage IIB on 08/22/17. 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 No other evidence to suggest distant metastatic disease. Thus, she began neoadjuvant, HER2 targeted therapy with Taxotere/Cytoxan/Perjeta/Herceptin on 11/10/17. Has tolerated fair with the exception of fatigue, nausea-typically well controlled with PO antiemetics and diarrhea-again typically well controlled with supportive medications. She received cycle 5 on 02/03/18, supported with G-CSF on day 2. Developed vomiting and diarrhea on 02/08/18. Was evaluated in the ambulatory clinic setting, supported with IV hydration. Stool for Cdiff was found to be negative at that time, however diarrhea persisted. Found to exhibit severe hypokalemia, taken to [facility] ED and subsequently admitted for management of hypokalemia and diarrhea. She has continued to pass flatus and was feeling better but then this afternoon started to develop increasing abdominal pain and crampiness. X-ray shows severe ileus versus obstruction and a CAT scan is being ordered and being done at the time that I am seeing the patient. Past Medical History Past Medical History (Chronic Problems): Chronic Problems (Last Reviewed 02/13/18 @ 19:06 by Killian Duke MD) Breast cancer, right breast (Chronic) Asthma with COPD (Chronic) Tobacco use (Chronic) History of alcohol abuse (Chronic) Prediabetes (Chronic) Hypothyroidism (acquired) (Chronic) Medical History: Medical History (Last Reviewed 02/13/18 @ 19:06 by Killian Duke MD) Fracture, skull S02.91XA Abnormal breast biopsy R89.7 right breast 08/19/17 Asthma J45.909 Breast cancer C50.919 History of elevated glucose Z86.39 pre-diabetic Hyperthyroidism E05.90 port placement 10-28-17 Allergies No Known Allergies Allergy (Verified 02/12/18 12:19) Home Medications: Ambulatory Orders Medication Instructions Recorded Surgical History: Surgical History (Last Reviewed 02/13/18 @ 19:06 by Killian Duke MD) H/O toe surgery Z98.890 cyst removed History of appendectomy Z90.49 History of back surgery Z98.890 Surgical History: - - Lumbar back surgery, left great toe surgery, port placement, appendectomy, possible intervention for fracture school as infant, right breast node 2 and lymph node biopsies. 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 Smoking Status: Current every day smoker Tobacco Use: Cigarettes Alcohol: Sober - Patient has been sober since October 2017 but prior to this drink at least 4 beers per day. Drugs: None - *Family History Maternal Family History: Family History (Last Reviewed 02/12/18 @ 11:29 by Didi Chahal) Brother Cancer Father Lung cancer Aunt Cancer History Items: - - Patient notes a maternal family history of heart disease including heart failure in addition to pulmonary ongoing issues during her lifetime with history of premature . Paternal Family History: Family History (Last Reviewed 02/12/18 @ 11:29 by Didi Chahal) Brother Cancer Father Lung cancer Aunt Cancer History Items: - - She notes a paternal family history of lung cancer but is unclear the type and states that it was outside the lung but progressed into the lung. Review of Systems Constitutional: Reports: Weakness, Fatigue Cardiovascular: Denies: Chest Pain, Chest Pressure, Chest Tightness, Palpitations Respiratory: Denies: Cough, Hemoptysis, Shortness of breath at rest, Shortness of breath upon exertion, Wheezing Gastrointestinal: Reports: Abdominal Pain, Diarrhea, Nausea, Vomiting - Patient states she feels like she is . Musculoskeletal: Denies: Joint Pain Skin: Denies: Lesions, Rash, Wounds Neurological: Denies: Change in Speech, Confusion, Numbness, Tingling, Seizures Patient Problems: Active and Suspected Problems (Last Reviewed 02/13/18 @ 19:06 by Killian Duke MD) Educational circumstance (Acute) Chemotherapy-induced nausea (Acute) Encounter for monitoring cardiotoxic drug therapy (Acute) Chemotherapy management, encounter for (Acute) Exertional dyspnea (Acute) Chemotherapy management, encounter for (Acute) Diarrhea (Acute) Nausea vomiting and diarrhea (Acute) r11.2 - Physical Exam General: Alert, Oriented x3 Lungs: Clear to auscultation Cardiovascular: Regular rate, Regular Rhythm, No murmurs Abdomen: Distended - Patient does not appear to have any signs of rebound guarding or peritoneal signs. She is very tympanitic. Extremities: No clubbing, No cyanosis, No edema Skin: No rashes, No breakdown Vital Signs Temp Pulse Resp BP Pulse Ox 97.8 F 73 16 110/48 L 99 02/13/18 15:05 02/13/18 15:09 02/13/18 15:05 02/13/18 15:05 02/13/18 15:05 Oxygen Delivery Method Room Air Weight: 163 lb 9.328 oz Body Mass Index (BMI) 28.0 Intake and Output for Last 24 Hours Intake Total 3332 / 3332 3336 / 3336 Output Total 150 / 150 Balance 3332 / 3332 3186 / 3186 Microbiology Past 72 Hours 02/12/18 15:41 Enteric Bacteriology - Final Stool 02/12/18 15:41 C. difficile DNA Amplification - Final Stool Laboratory Tests Past 24 Hrs WBC 21.0 H RBC 2.52 L WBC RBC Hgb Hct MCV MCH MCHC RDW RDW Differential Plt Count MPV POC Glucose POC Glucose 99 86 64 L POC Glucose 96 Assessment/Plan All Active Problems (Last Reviewed 02/13/18 @ 19:06 by Killian Duke MD) Encounter for insertion of venous access port (Acute) Educational circumstance (Acute) Chemotherapy-induced nausea (Acute) Encounter for monitoring cardiotoxic drug therapy (Acute) Chemotherapy management, encounter for (Acute) Exertional dyspnea (Acute) Sore throat (Resolved) Perineal pain (Resolved) Chemotherapy management, encounter for (Acute) Diarrhea (Acute) Nausea vomiting and diarrhea (Acute) I have reviewed the CAT scan with the final report is not in I do not see an obvious transition point and she is not striking me as somebody who is acutely obstructed but rather has a significant ileus. I would recommend ambulating this patient avoiding an NG tube unless she vomits again and replace her electrolytes appropriately. At the present time I have no surgical interventions planned for her. 02/13/181910 <Electronically signed by Killian Duke MD> Date Killian Duke MD Cosigner Signature (if applicable): Date CC: Killain Duke MD; Andrei Asher MD; Ignacio Hoyt MD; Idris Bull MD Signed ABDOMEN/PELVIS WITHOUT Observed: 02/13/2018 Status: F Source: [facility] CONT 6:16 PM [facility] REPOSITORY [facility] Imaging Services [address] [place] [id number] Abdomen/Pelvis without Cont MR#: [id number] Acct: [id number] Name: NURYS DIAZ Rep #: [id number] : 1945 F 72 From: Afshin Luong MD PCP: Andrei Asher MD Status: ADM IN Study: Abdomen/Pelvis without Cont Date of Exam: 02/13/18 Exam# [id number] Ordering Dr: Jose Kirk MD STUDY: CT ABDOMEN AND PELVIS WITHOUT CONTRAST REASON FOR EXAM: Female, 72 years old. Pain. Bowel obstruction. Breast cancer chemotherapy. RADIATION DOSAGE (If Supplied By Facility): CTDIvol = ( 15.25 ) mGy, DLP = ( 739.02 ) mGycm TECHNIQUE: Transaxial images were obtained from the dome of the diaphragm to the symphysis pubis without oral contrast, and without intravenous contrast. Sagittal and coronal images were reconstructed. Individualized dose optimization techniques were used for this CT. COMPARISON: None. FINDINGS: Limited views through the lower chest show thickening of the lower extent of the right major fissure, and some pleural-parenchymal scarring in the posterior lower left hemithorax. Normal liver. Normal gallbladder and extrahepatic biliary system. Normal spleen. Normal pancreas. Normal bilateral adrenal glands. Normal right kidney. Normal left kidney. Evaluation of the GI tract is limited without oral contrast. There is moderate fluid-filled distention of the stomach. There are numerous loops of fluid-filled distended small bowel all the way to the terminal ileum, and there is fluid distention of the cecum with what appears to be thickening of the cecal wall and pericolonic stranding. A specific obstruction is not seen, but cannot exclude inflammatory or neoplastic process in the cecum. Colonoscopy is recommended. There is diffuse atherosclerotic calcification of the abdominal aorta, without a demonstrated aneurysm. Normal inferior vena cava. Normal retroperitoneum. Normal urinary bladder. There is atrophy of the uterus. There is a left-sided inguinal hernia containing adipose tissue. There are diffuse degenerative changes of the visualized lumbar spine. CT/Abdomen/Pelvis without Cont IMPRESSION: Evaluation of the GI tract is limited without oral contrast but there is clearly fluid-filled distention of the stomach and entire small bowel and an abnormal appearance of the cecum. Question inflammatory or neoplastic process of the cecum. Colonoscopy is recommended. Electronically Signed: Afshin Luong MD at 19:19 EDT , Service support , CC: Andrei Asher MD; Jose Kirk M.D. Batch Tester: Signed BASIC METABOLIC Collected: 02/13/2018 Status: F Source: MAE PROFILE (BMP) 5:14 PM [facility] REPOSITORY TYPE CODE TESTS RESULT OUT OF RANGE REFERENCE UNITS LAB L501.0100 74-106 mg/dL Normal GLU 86 Result Comment: Please note revised GLUCOSE reference range effective 2017. LAB L501.1000 7-18 mg/dL Low BUN 6 LAB L501.1100 0.55-1.02 mg/dL Normal CREAT,SERUM 0.59 Result Comment: The validity of the calculated GFR AND GFRAA in patients over 70 years has not been determined. Clinical correlation is essential. LAB L501.1110 >60 mL/min Normal EST GFR 108 Result Comment: Non- GFR Calc LAB L501.1115 >60 mL/min Normal EST GFR - AA 130 Result Comment: GFR Calc LAB L501.1255 ml/min Normal Estimated CRCL 45.20 LAB L501.1300 10-20 RATIO Normal BUN/CRE 10.2 LAB L501.2200 8.5-10 mg/dL Low .1 CA 7.7 LAB L501.5300 136-14 mmol/L Normal 5 NA 141 LAB L501.5600 3.5-5. mmol/L Low 1 K alert 2.7 Result Comment: Critical Result(s) Called at: 17:44:16 02/13/2018 by: Angela Perez to MOrr LAB L501.5900 98-107 mmol/L High CL 110 LAB L501.6100 21.0-32.0 mmol/L Normal CO2 22.0 LAB L501.6200 5-15 Normal 9 GAP Performed By: #### L500.2500 #### [facility] [address] [place], [address] ABD INC DECUB Observed: 02/13/2018 Status: F Source: MAE AND/OR ERECT 4:25 PM [facility] REPOSITORY [facility] Imaging Services [address] [place] [address] Abd Inc Decub and/or Erect MR#: [id number] Acct: [id number] Name: JOENURYS B Rep #: [id number] : 1945 F 72 From: Afshin Luong MD PCP: Andrei Asher MD Status: ADM IN Study: Abd Inc Decub and/or Erect Date of Exam: 02/13/18 Exam# [id number] Ordering Dr: Jose Kirk MD STUDY: X-RAY - ABDOMEN/PELVIS REASON FOR EXAM: Female, 72 years old. Distention. Pain and vomiting. Breast cancer. TECHNIQUE: AP supine and upright views of the abdomen and pelvis. COMPARISON: None. FINDINGS: Normal visualized lung bases. Abnormal bowel gas pattern showing numerous distended loops of mostly large bowel , with numerous air-fluid levels. There is relatively decreased distal bowel gas. Findings are suggestive of severe ileus or bowel obstruction. There is no demonstrated free abdominal air. The visualized liver, spleen and kidneys are grossly normal in size and morphology. Normal soft tissue structures. Normal visualized osseous structures. RAD/Abd Inc Decub and/or Erect IMPRESSION: Abnormal bowel gas pattern suggestive of severe ileus or obstruction. Electronically Signed: Afshin Luong MD at 17:50 EDT , Service support , CC: Andrei Asher MD; Jose Kirk M.D. Batch Tester: Signed BEDSIDE GLUCOSE Collected: 02/13/2018 Status: F Source: MAE 4:00 PM [facility] REPOSITORY TYPE CODE TESTS RESULT OUT OF RANGE REFERENCE UNITS LAB L501.080 70-110 mg/dL Normal BEDSIDE GLU 99 Result Comment: MANAGEMENT OF PATIENT CARE PER NURSING PROTOCOL Performed By: #### L501.080 #### [facility] Point [place] [address] BEDSIDE GLUCOSE Collected: 02/13/2018 Status: F Source: MAE 11:47 AM [facility] REPOSITORY TYPE CODE TESTS RESULT OUT OF RANGE REFERENCE UNITS LAB L501.080 70-110 mg/dL Normal BEDSIDE GLU 86 Result Comment: MANAGEMENT OF PATIENT CARE PER NURSING PROTOCOL Performed By: #### L501.080 #### [facility] Point of Care [address] [place] [address] BEDSIDE GLUCOSE Collected: 02/13/2018 Status: F Source: MAE 6:46 AM [facility] REPOSITORY TYPE CODE TESTS RESULT OUT OF REFERENCE UNITS RANGE LAB L501.080 70-110 mg/dL Low BEDSIDE GLU 64 Result Comment: MANAGEMENT OF PATIENT CARE PER NURSING PROTOCOL Performed By: #### L501.080 #### [facility] Point of Care [address] [place] [address] COMPREHENSIVE METABOLIC Collected: 02/13/2018 Status: F Source: MAE PROFIL 5:35 AM [facility] REPOSITORY Order Comment: SPECIMEN OBTAINED FROM LINE DRAW TYPE CODE TESTS RESULT OUT OF RANGE REFERENCE UNITS LAB L501.0100 74-106 mg/dL Low GLU 72 Result Comment: Please note revised GLUCOSE reference range effective 2017. LAB L501.1000 7-18 mg/dL Normal BUN 9 LAB L501.1100 0.55-1.02 mg/dL Low CREAT,SERUM 0.50 Result Comment: The validity of the calculated GFR AND GFRAA in patients over 70 years has not been determined. Clinical correlation is essential. LAB L501.1110 >60 mL/min Normal EST GFR 128 Result Comment: Non- GFR Calc LAB L501.1115 >60 mL/min Normal EST GFR - AA 155 Result Comment: GFR Calc LAB L501.1255 ml/min Normal Estimated CRCL 45.20 LAB L501.1300 10-20 RATIO Normal BUN/CRE 17.9 LAB L501.1500 6.4-8. g/dL Low 2 T PROT 5.3 LAB L501.1800 3.2-5. g/dL Low 0 ALB 2.7 LAB L501.1950 2.2-4. g/dL Normal 2 GLOB 2.6 LAB L501.2000 0.9-2. RATIO Normal 4 A/G 1.0 LAB L501.2200 8.5-10 mg/dL Low .1 CA 7.5 LAB L501.4100 15-37 U/L Low AST 13 LAB L501.4305 45-117 U/L Normal ALK P 113 LAB L501.4405 13-56 U/L Normal ALT 22 LAB L501.4600 0.20-1 mg/dL Normal .00 T BILI 0.30 LAB L501.5300 136-14 mmol/L Normal 5 NA 144 LAB L501.5600 3.5-5. mmol/L Low 1 K 3.0 LAB L501.5900 98-107 mmol/L High CL 111 LAB L501.6100 21.0-3 mmol/L Normal 2.0 CO2 24.0 LAB L501.6200 5-15 Normal GAP 9 Performed By: #### L500.4050, L501.2300, L501.5200 #### [facility] [address] [place], [address] PHOSPHORUS Collected: 02/13/2018 Status: F Source: DODGE 5:35 AM [facility] REPOSITORY Order Comment: SPECIMEN OBTAINED FROM LINE DRAW TYPE CODE TESTS RESULT OUT OF RANGE REFERENCE UNITS LAB L501.2300 2.5-4.9 mg/dL Normal PHOS 2.7 Performed By: #### L500.4050, L501.2300, L501.5200 #### [facility] [address] [place], [place], [id number] MAGNESIUM Collected: 02/13/2018 Status: F Source: DODGE 5:35 AM [facility] REPOSITORY Order Comment: SPECIMEN OBTAINED FROM LINE DRAW TYPE CODE TESTS RESULT OUT OF RANGE REFERENCE UNITS LAB L501.5200 1.6-2.6 mg/dL Normal MG 1.9 Performed By: #### L500.4050, L501.2300, L501.5200 #### [facility] [address] [place], [place], [id number] CBC W/DIFF, AUTOMATED Collected: 02/13/2018 Status: F Source: DODGE 5:35 AM [facility] REPOSITORY Order Comment: SPECIMEN OBTAINED FROM LINE DRAW TYPE CODE TESTS RESULT OUT OF RANGE REFERENCE UNITS LAB L100.1000 4.4-11.0 K/mm3 High WBC 21.0 LAB L100.1200 4.2-5.4 M/mm3 Low RBC 2.52 LAB L100.1300 12.0-15.0 g/dl Low HGB 8.9 LAB L100.1400 37-47 % Low HCT 26.5 LAB L100.1500 81-99 fL High MCV 105.2 LAB L100.1600 27.0-32.0 pg High MCH 35.3 LAB L100.1700 32-36 g/gl Normal MCHC 33.6 LAB L100.1810 11.6-14.6 % High RDW CV 19.3 LAB L100.1820 35.1-43.9 fl High RDW SD 70.4 LAB L100.1900 150-450 K/mm3 Normal PLT 152 LAB L100.2000 6.2-12.0 fl Normal MPV 10.0 LAB L100.2100 47-70 % High NEUT% 83.8 LAB L100.2200 19-41 % Low LY% 7.7 LAB L100.2300 0-10 % Normal MONO% 6.6 LAB L100.2400 0-5 % Normal EO% 0.0 LAB L100.2500 0-1 % Normal BASO% 0.2 LAB L100.2550 0.0-0.9 % High IM GRAN % 1.700 Result Comment: IG% - Immature Granulocytes (promyelocytes, myelocytes and metamyelocytes) > 1% indicates that a LEFT SHIFT is Present. LAB L100.2620 2.0-7.7 X10 3/uL High Absolute Neut 17.6 LAB L100.2720 0.83-4.51 X10 3/ul Normal Absolute Lymph 1.62 Performed By: #### L100.0100 #### [facility] [address] [place], [place], [address] BEDSIDE GLUCOSE Collected: 02/12/2018 Status: F Source: DODGE 10:26 PM [facility] REPOSITORY TYPE CODE TESTS RESULT OUT OF RANGE REFERENCE UNITS LAB L501.080 70-110 mg/dL Normal BEDSIDE GLU 96 Result Comment: MANAGEMENT OF PATIENT CARE PER NURSING PROTOCOL Performed By: #### L501.080 #### [facility] Point of Care [address] [facility] [place] [address] Observed: 02/12/2018 Status: F Source: MAE OVA AND PARASITES 9:35 PM [facility] REPOSITORY O + P OVA AND PARASITES EXAM, ROUTINE These results were obtained using wet preparation(s) and trichrome stained smear. This test does not include testing for Crytosporidium parvum, Cyclospora, or Microsporidia. TESTING PERFORMED AT [facility]. ORIGINAL REPORT ON FILE IN LAB CONTAINS ADDITIONAL TEST SITE INFORMATION. Ova/Parasite Exam NO OVA, CYSTS, OR PARASITES FOUND. Performed By: #### M600.5000 #### [facility] [place], [address] BASIC METABOLIC Collected: 02/12/2018 Status: F Source: MAE PROFILE (BMP) 8:35 PM [facility] REPOSITORY TYPE CODE TESTS RESULT OUT OF RANGE REFERENCE UNITS LAB L501.0100 74-106 mg/dL Normal GLU 88 Result Comment: Please note revised GLUCOSE reference range effective 2017. LAB L501.1000 7-18 mg/dL Normal BUN 14 LAB L501.1100 0.55-1.02 mg/dL Normal CREAT,SERUM 0.67 Result Comment: The validity of the calculated GFR AND GFRAA in patients over 70 years has not been determined. Clinical correlation is essential. LAB L501.1110 >60 mL/min Normal EST GFR 92 Result Comment: Non- GFR Calc LAB L501.1115 >60 mL/min Normal EST GFR - AA 111 Result Comment: GFR Calc LAB L501.1255 ml/min Normal Estimated CRCL 45.20 LAB L501.1300 10-20 RATIO High BUN/CRE 20.8 LAB L501.2200 8.5-10 mg/dL Low .1 CA 7.5 LAB L501.5300 136-14 mmol/L Normal 5 NA 142 LAB L501.5600 3.5-5. mmol/L Low 1 K alert 2.3 Result Comment: CALLED RICHARD MARQUEZ PCU WITH CRITICAL K 02-12-18 AT 2139PM BY JESSEE READ BACK BY SAME LAB L501.5900 98-107 mmol/L High CL 109 LAB L501.6100 21.0-32.0 mmol/L Normal CO2 23.0 LAB L501.6200 5-15 Normal GAP 10 Performed By: #### L500.2500 #### [facility] [address] [place], [address] EMERGENCY DEPARTMENT Observed: 02/12/2018 Status: F Source: DODGE SUMMARY 4:32 PM [facility] REPOSITORY [facility] Medical Records Department [address] [facility] [place] [address] Emergency Department Summary 02/12/18 1409 MR#: [id number] Acct: [id number] Name: NURYS DIAZ Rep #: [id number] : 1945 72 From: Anna Álvarez MD PCP: Andrei Asher MD Status: ADM IN - ER Visit Summary Date of Service: 02/12/18 Chief Complaint: Nausea, vomiting, diarrhea History of Present Illness: The patient is a 72 F with history of breast cancer for which she is undergoing treatment. She finished her last chemotherapy cycle on February 03. She has had diarrhea over the past 6 days. She was seen by the oncology office twice this week. Outpatient C. difficile test was reportedly negative. Repeat labs at today's visit shows potassium of 2.4. Patient continues to have nausea with mild vomiting as well as copious diarrhea. She states she gets abdominal cramping just before bowel movements. She denies fever. Physical Examination: Vital signs are unremarkable. Patient sitting upright in bed no acute distress. Heart is regular rate and rhythm. Lung sounds are clear. Abdomen is soft nontender. Active bowel sounds noted throughout. Test Results: Lab results from this morning are reviewed. White count is 15.7 but I was advised she had recently received Neulasta. Hemoglobin is 11.0. Chemistry studies were potassium of 2.4 and glucose of 118. EKG obtained here shows mild inferior lateral ST depression with sinus rhythm at a rate of 90. There are no prior studies available for comparison. Emergency Department Course and Treatment: Patient is given IV fluids and Zofran. Potassium chloride IV is started. Patient was discussed with Dr. Bueno and will be admitted for further treatment. Treatment Plan: [] Disposition: Admit Impression: Hypokalemia This note was generated with [employer] dictation software. It may contain incorrect words, spelling, and punctuation that were not noted in review of the chart prior to signing ED Disposition - Plan for ED Patient: Disposition: Acute Care Hospital [facility] Chief Complaint: Abn Labs What to do if you have Problems For any increased pain, shortness of breath, bleeding, nausea or vomiting, chest pain, or any unexpected problems, contact your Primary Care Provider. Call [facility] ([phone]) or report to the closest Emergency Room. Call 911 if necessary. 02/12/18 1632 <Electronically signed by Anna Álvarez MD> Date Anna Álvarez MD Cosigner Signature (If Indicated): Date CC: Andrei Asher MD BEDSIDE GLUCOSE Collected: 02/12/2018 Status: F Source: DODGE 4:17 PM [facility] REPOSITORY TYPE CODE TESTS RESULT OUT OF RANGE REFERENCE UNITS LAB L501.080 70-110 mg/dL Normal BEDSIDE GLU 93 Result Comment: MANAGEMENT OF PATIENT CARE PER NURSING PROTOCOL Performed By: #### L501.080 #### [facility] Point of Care [address] [place] [address] Observed: 02/12/2018 Status: F Source: MAE CDIFF (MOLECULAR) 3:41 PM [facility] REPOSITORY Is the patient receiving laxatives? N New/unexplained onset of 3 or more stools in past 24 hrs? Y Cdiff-Molecular Normal Reference Range = Negative C. Diff DNA Negative- No toxigenic C. Diff DNA Detected NAAT METHOD Testing was performed using nucleic acid amplification Performed By: #### M100.6796 #### [facility] [address] [place], [address] Observed: 02/12/2018 Status: F Source: DODGE ENTERIC PATHOGEN 3:41 PM [facility] PANEL STOOL REPOSITORY PANEL STOOL Normal Reference Range = Not Detected Not detected for Campylobacter group, Salmonella species, Shigella species, Vibrio Group, Yersinia enterocolitica, EHEC (Shiga Toxin 1, Shiga Toxin 2), Norovirus Gl/Gll, and Rotavirus A. Other common stool pathogens are not detected on this panel include: Aeromonas/Plesiomonas or parasites. Order testing for these organisms separately if suspected. This is an amplified DNA test which makes it both specific and sensitive. CAMPYLOBACTER Not Detected Salmonella Not Detected Shigella sp. Not Detected Shiga Toxin Not Detected Yersinia Not Detected VIBRIO Not Detected Norovirus Not Detected Rotavirus Not Detected Performed By: #### M100.637 #### [facility] [address] [facility] [place], [address] ONCOLOGY VISIT REPORT Observed: 02/12/2018 Status: F Source: DODGE 12:24 PM [facility] REPOSITORY [facility] [address] [place] [address]. [place] [address] OFFICE VISIT Date of Service: 02/12/18 1058 MR#: [id number] Acct: [id number] Name: NURYS DIAZ Rep #: [id number] : 1945 From: Eloise ALY Age/Sex: 72/F Location: ONC Status: Signed Subjective - Date of Service Date of Service:: 02/12/18 - Chief Complaint Acute visit- N/V/D - History of Present Illness 72-year-old woman noticed a right breast mass in July 2017, ultrasound/mammogram on 08/13/2017 showed irregular spiculated solid mass at 9 o'clock position measuring 2.5 cm in addition to enlarged lymph nodes in the axilla. She had right breast and axillary lymph node biopsy on August 27, 2017 which showed right breast invasive ductal carcinoma, and metastatic disease in Right Axillary lymph node, ER/NM positive, HER-2 3+ positive. She was seen at [facility] by Dr. Jimenez, declined chemotherapy. CT chest/abdomen/pelvis showed right breast nodules with multiple right axillary lymph nodes, no murmurs pulmonary nodules, atherosclerotic disease with coronary calcifications, pulmonary hypertension, and emphysematous changes. There was no evidence of metastatic disease in abdomen or pelvis. She had CT-guided needle biopsy of lung nodule on 09/25/2017, Pathology showed pulmonary Langerhans cell histiocytosis. She had a change of heart and now willing to consider neoadjuvant chemotherapy with Her2 targeted therapy and has elected to do it in [facility]. Port placed 10/28/[address] English and MUGA scan obtained 10/24/2017 showed EF 59%. She started therapy with TCH+P on 11/10/2017. Received C5D1 on 02/03/2018. She developed nausea/vomiting and watery diarrhea on 02/08/2018. Evaluated in clinic on 02/09/18, supported with IVFs. Stool negative for C diff on 02/09/18. - Interval History The patient is presenting to clinic accompanied by friend for an acute visit with c/o continued diarrhea, nausea and vomiting. States upon discharge from the infusion suite subsequent to receiving IVFs she felt better in terms of dizziness aned weakness. Later that evening experienced 1 episode of diarrhea and described as alarming because it was black water and has been black since. Estimates 8-9 episodes of loose stool yesterday, took 2 doses of Imodium and Zofran x2. C/o 5 incidences of loose stool this am and countless episodes of dry heaves also this morning. She has not taken any antidiarrheals nor antiemetics today. Notes dizziness simply sitting in her wheelchair. Appetite poor. PO fluid intake likely inadequate. Denies fever/chills, sweats, headache, CP, palpitations, swelling/pain of her extremities and any episodes otherwise of overt bleeding/abnormal bruising. - Past Medical/Social History Past Medical History Cancer: Breast cancer Social History Social History: No changes Smoking Status Current every day smoker Review of Systems Constitutional:: Reports: Weakness, Fatigue, Weight loss. Denies: Fever, Sweats, Appetite change, Chills Cardiovascular:: Reports: Dyspnea on exertion. Denies: Chest pain, Palpitations, Orthopnea, PND, Shortness of breath Respiratory: Reports: Cough, Shortness of Breath, Wheezing. Denies: Hemoptysis Gastrointestinal:: Reports: Abdominal pain - cramping prior to BMs, Nausea. Denies: Vomiting, Diarrhea, Constipation, Hematochezia Genitourinary: Denies: Dysuria, Hematuria, 15, Flank pain Musculoskeletal:: Reports: Back pain. Denies: Myalgia, Arthralgia Skin: Denies: Rash, Skin Changes, Wounds Neurological:: Denies: Headache, Dizziness, Numbness, Tingling, Visual changes, Tinnitus, Hearing loss Psychiatric: Denies: Anxiety, Depression, Homicidal Ideations, Suicidal Ideations Vital Signs Height 5 ft 4 in Weight: 165 lb Weight in Pounds 165.0 lbs Pulse Ox 97 - Physical Exam General: Alert, Oriented x3, No apparent distress, - - unusually ukempt, in wheelchair covered with blankets HEENT: Atraumatic, Normocephalic, - - wears glasses Oropharynx:: Dry mucosa, -. Negative for: Ulcerated lesions Neck:: Supple, Trachea midline. Negative for: JVD, bilateral Cardiac:: Regular rate, Regular rhythm, Normal S1, Normal S2 Lungs: Wheezes - faint expiratory throughout, Diminished, Excusion symmetrical. Negative for: Rhonchi, Tachypneic, Increased respiratory effort Abdomen:: Bowel sounds x 4, Soft, Non-tender, Non-distended. Negative for: Hepatosplenomegaly Extremities:: Negative for: Cyanosis, Edema Neurological: Neuro grossly intact Skin:: Negative for: Lesions, Rash, Petechiae, Ecchymosis Psychiatric:: Depressed affect, - - Tearful during interview Lymphatics:: Negative for: Cervical lymphadenopathy, Supraclavicular lymphadenopathy, Axillary lymphadenopathy Assessment and Plan 1. Stage IIB(cT2 cN1 M0), invasive ductal carcinoma UO quadrant right breast, ER/NM positive, Her2 3+ positive by IHC- Began neoadjuvant Taxotere/carboplatin/Perjeta/Herceptin on 11/10/17. Overall, has tolerated treatment and Neulasta well with c/o N/V/D controlled with Zofran and Imodium and moderate to severe fatigue. Echo 01/06/18 shows normal LV function and ejection fraction 55%. Received cycle 5 on 02/03/18. CBC reviewed and values are acceptable for GOPI, leukocytosis reflects support with Neulasta on day 2. 2. Hypokalemia secondary to diarrhea- as evidenced by K 2.4. Will require cardiac monitoring to correct, thus patient taken to [facility] ED. 3. Diarrhea- Cdiff obtained 02/10/18. Will need stool for enteric pathogen panel, then if negative aggressive management at least initially, with loperamide. (Patient has not been taking as advised at home d/t weakness) Evidence for dehydration requiring IV hydration. 4. Exertional dyspnea-according to the patient this is unchanged from baseline. Now using her Breo inhaler as advised. 5. Chemotherapy induced anemia- As evidenced by Hgb 11 today. Will continue to monitor. Patient to ED. She was in agreement with the aforementioned plan. Eloise New, MSN, TRANSITION COACH, AOCNP Medications: Prescriptions This Visit Medication Instructions Recorded Primary Care Provider: Lesley Asher Referring Provider: Ignacio Hoyt MD - Problem List (1) Breast cancer, right breast Status: Chronic Qualifiers: Breast location: upper outer quadrant of breast Estrogen receptor status: positive Patient sex: female Qualified Code(s): C50.411 - Malignant neoplasm of upper-outer quadrant of right female breast; Z17.0 - Estrogen receptor positive status [ER+] (2) Encounter for monitoring cardiotoxic drug therapy Status: Acute (3) Chemotherapy management, encounter for Status: Acute (4) Exertional dyspnea Status: Acute (5) Sore throat Status: Resolved (6) Perineal pain Status: Resolved 02/12/18 1224 <Electronically signed by Eloise SALMERONC> Date Eloise ALY Cosigner Signature: Date (if applicable) CC: HEMOGLOBIN A1C Collected: 02/12/2018 Status: F Source: MAE 10:57 AM [facility] REPOSITORY TYPE CODE TESTS RESULT OUT OF RANGE REFERENCE UNITS LAB L501.9985 4.2-6.3 % Normal HGB A1C 5.4 Performed By: #### L501.9985 #### [facility] [address] [place], [address] PHOSPHORUS Collected: 02/12/2018 Status: F Source: DODGE 10:57 AM [facility] REPOSITORY TYPE CODE TESTS RESULT OUT OF RANGE REFERENCE UNITS LAB L501.2300 2.5-4.9 mg/dL Normal PHOS 3.9 Performed By: #### L501.2300, L503.6030, L503.6550, L506.0250 #### [facility] [address] [place], [address] IRON+IRON BINDING Collected: 02/12/2018 Status: F Source: [facility] 10:57 AM [facility] REPOSITORY TYPE CODE TESTS RESULT OUT OF RANGE REFERENCE UNITS LAB L503.6075 250-450 ug/dL Low TIBC 246 LAB L503.6150 50-170 ug/dL IRON Normal 90 LAB L503.6250 15.0-55.0 % IRON Normal SATURATION 36.6 Performed By: #### L501.2300, L503.6030, L503.6550, L506.0250 #### [facility] [place], [address] FERRITIN Collected: 02/12/2018 Status: F Source: DODGE 10:57 AM [facility] REPOSITORY TYPE CODE TESTS RESULT OUT OF REFERENCE UNITS RANGE LAB L503.6550 8-252 ng/mL High FERRITIN 833 Performed By: #### L501.2300, L503.6030, L503.6550, L506.0250 #### [facility] [address] [place], [address] FOLATES, (FOLIC ACID) Collected: 02/12/2018 Status: F Source: DODGE 10:57 AM [facility] REPOSITORY TYPE CODE TESTS RESULT OUT OF RANGE REFERENCE UNITS LAB L506.0250 3.1-55.4 ng/mL Normal FOLATES 21.80 Performed By: #### L501.2300, L503.6030, L503.6550, L506.0250 #### [facility] [address] [place], [address] VITAMIN B12 Collected: 02/12/2018 Status: F Source: MAE 10:57 AM [facility] REPOSITORY TYPE CODE TESTS RESULT OUT OF REFERENCE UNITS RANGE LAB L503.0105 211-911 pg/mL High Vitamin B12 > 2000 Performed By: #### L503.0105 #### [facility] [address] [place], [address] COMPREHENSIVE METABOLIC Collected: 02/12/2018 Status: F Source: MAE [facility] 10:56 AM [facility] REPOSITORY Order Comment: Reason for Laboratory Test DIARRHEA TYPE CODE TESTS RESULT OUT OF RANGE REFERENCE UNITS LAB L501.0100 74-106 mg/dL High GLU 118 Result Comment: Fasting Glucose result from 100 to 125 mg/dL suggests IMPAIRED HOMEOSTASIS per A.D.A. criteria. Please note revised GLUCOSE reference range effective 2017. LAB L501.1000 7-18 mg/dL Normal BUN 16 LAB L501.1100 0.55-1.02 mg/dL Normal CREAT,SERUM 0.87 Result Comment: The validity of the calculated GFR AND GFRAA in patients over 70 years has not been determined. Clinical correlation is essential. LAB L501.1110 >60 mL/min Normal EST GFR 69 Result Comment: Non- GFR Calc LAB L501.1115 >60 mL/min Normal EST GFR - AA 83 Result Comment: GFR Calc LAB L501.1255 ml/min Normal Estimated CRCL 51.96 LAB L501.1300 10-20 RATIO Normal BUN/CRE 18.4 LAB L501.1500 6.4-8. g/dL Normal 2 T PROT 6.8 LAB L501.1800 3.2-5. g/dL Normal 0 ALB 3.4 LAB L501.1950 2.2-4. g/dL Normal 2 GLOB 3.4 LAB L501.2000 0.9-2. RATIO Normal 4 A/G 1.0 LAB L501.2200 8.5-10 mg/dL Low .1 CA 8.3 LAB L501.4100 15-37 U/L Low AST 13 LAB L501.4305 45-117 U/L High ALK P 140 LAB L501.4405 13-56 U/L Normal ALT 24 LAB L501.4600 0.20-1 mg/dL Normal .00 T BILI 0.40 LAB L501.5300 136-14 mmol/L Normal 5 NA 137 LAB L501.5600 3.5-5. mmol/L Low 1 K alert 2.4 Result Comment: Critical Result(s) Called at: 11:47:39 02/12/2018 by: Seamus MONTEZ AT [facility] [phone] LAB L501.5900 98-107 mmol/L Normal CL 101 LAB L501.6100 21.0-32.0 mmol/L Normal CO2 25.0 LAB L501.6200 5-15 Normal GAP 11 Performed By: #### L500.4050, L501.5200 #### [facility] [address] [place], [address] MAGNESIUM Collected: 02/12/2018 Status: F Source: [facility] 10:56 AM [facility] REPOSITORY Order Comment: Reason for Laboratory Test DIARRHEA TYPE CODE TESTS RESULT OUT OF RANGE REFERENCE UNITS LAB L501.5200 1.6-2.6 mg/dL Normal MG 1.8 Performed By: #### L500.4050, L501.5200 #### [facility] [address] [place], [address] CBC W/DIFF, AUTOMATED Collected: 02/12/2018 Status: C Source: DODGE 10:56 AM [facility] REPOSITORY Order Comment: Reason for Laboratory Test DIARRHEA TYPE CODE TESTS RESULT OUT OF REFERENCE UNITS RANGE LAB L100.1000 4.4-11.0 K/mm3 WBC High 15.7 LAB L100.1200 4.2-5.4 M/mm3 Low RBC 3.22 LAB L100.1300 12.0-15.0 g/dl Low HGB 11.0 LAB L100.1400 37-47 % Low HCT 33.1 LAB L100.1500 81-99 fL MCV High 102.8 LAB L100.1600 27.0-32.0 pg MCH High 34.2 LAB L100.1700 32-36 g/gl MCHC Normal 33.2 LAB L100.1810 11.6-14.6 % RDW CV High 19.1 LAB L100.1820 35.1-43.9 fl RDW SD High 70.8 LAB L100.1900 150-450 K/mm3 PLT Normal 179 LAB L100.2000 6.2-12.0 fl MPV Normal 10.6 LAB L100.3100 MANUAL DIFF CELLS COUNTED Normal 100 LAB L100.3200 47-70 % SEGS Normal 50 LAB L100.3300 0-5 % BAND High 30 LAB L100.3400 0-1 % META High 6 LAB L100.3500 0-0 MYELO High 1 LAB L100.3800 19-41 % Low LYMPH 6 LAB L100.3900 0-10 % MONOCYTE Normal 7 LAB L100.7300 ANISO Normal RARE LAB L100.7500 POLYCHROMASIA Normal RARE LAB L100.7600 HYPOCHROMASIA Normal RARE LAB L100.9900 PATH REV Normal Reviewed Result Comment: Leukocytosis and Neutrophilic left shift. Macrocytic anemia. Clinical correlation necessary. Zohaib Hartman M.D. 02/13/18 AMENDED REPORT 02/13/18 1016 PATH REV previously reported as: September foll LAB L100.2620 2.0-7.7 X10 3/uL High Absolute Neut 12.6 LAB L100.2720 0.83-4.51 X10 3/ul Normal Absolute Lymph 0.94 Performed By: #### L100.0100 #### [facility] [place], [address] Observed: 02/10/2018 Status: F Source: MAE CDIFF (MOLECULAR) 11:57 AM [facility] REPOSITORY Reason for Laboratory Test . Cdiff-Molecular C. Diff DNA Negative- No toxigenic C. Diff DNA Detected NAAT METHOD Testing was performed using nucleic acid amplification Performed By: #### M100.6796 #### [facility] [place], [address] ONCOLOGY VISIT REPORT Observed: 02/09/2018 Status: F Source: MAE 12:03 PM [facility] REPOSITORY [facility] [address] [place] [address] OFFICE VISIT Date of Service: 02/09/18 1138 MR#: [id number] Acct: [id number] Name: NURYS DIAZ Rep #: [id number] : 1945 From: Ignacio Hoyt MD Age/Sex: 72/F Location: [facility] Status: Signed Subjective - Date of Service Date of Service:: 02/09/18 - Chief Complaint F/u for nausea/vomiting and diarrhea - History of Present Illness 72-year-old woman noticed a right breast mass in July 2017, ultrasound/mammogram on 08/13/2017 showed irregular spiculated solid mass at 9 o'clock position measuring 2.5 cm in addition to enlarged lymph nodes in the axilla. She had right breast and axillary lymph node biopsy on August 27, 2017 which showed right breast invasive ductal carcinoma, and metastatic disease in Right Axillary lymph node, ER/NM positive, HER-2 3+ positive. She was seen at [facility] by Dr. Jimenez, declined chemotherapy. CT chest/abdomen/pelvis showed right breast nodules with multiple right axillary lymph nodes, no murmurs pulmonary nodules, atherosclerotic disease with coronary calcifications, pulmonary hypertension, and emphysematous changes. There was no evidence of metastatic disease in abdomen or pelvis. She had CT-guided needle biopsy of lung nodule on 09/25/2017, Pathology showed pulmonary Langerhans cell histiocytosis. She had a change of heart and now willing to consider neoadjuvant chemotherapy with Her2 targeted therapy and has elected to do it in [facility]. Port placed 10/28/[address] English and MUGA scan obtained 10/24/2017 showed EF 59%. She started therapy with TCH+P on 11/10/2017. Got C5D1 on 02/03/2018. She developed nausea/vomiting and watery diarrhea on 02/08/2018, cannot keep Zofran down. Took Pepto Bismol, has not vomited this morning and no stools. - Past Medical/Social History Past Medical History Cancer: Breast cancer Social History Social History: No changes Smoking Status Current every day smoker Review of Systems Constitutional:: Reports: Fatigue. Denies: Fever, Sweats Cardiovascular:: Denies: Chest pain, Palpitations, Dyspnea on exertion, Orthopnea, PND, Shortness of breath Respiratory: Denies: Cough, Hemoptysis, Shortness of Breath, Wheezing Gastrointestinal:: Reports: Nausea, Vomiting, Diarrhea, - - cramps with diarrhea.. Denies: Abdominal pain, Constipation, Hematochezia Genitourinary: Denies: Dysuria, Hematuria, 15, Flank pain Neurological:: Denies: Headache, Dizziness, Visual changes, Tinnitus, Hearing loss Psychiatric: Denies: Anxiety, Depression, Homicidal Ideations, Suicidal Ideations Vital Signs Height 5 ft 4 in Weight: 74.843 kg Weight in Pounds 165.0 lbs Pulse Ox 97 - Physical Exam General: Alert, Oriented x3, No apparent distress Cardiac:: Regular rate, Regular rhythm, Normal S1, Normal S2. Negative for: Murmur Lungs: Wheezes - bilaterally. Laboratory Data: Laboratory Tests WBC 2.9 L (4.4-11.0) K/mm3 RBC 3.11 L (4.2-5.4) M/mm3 Hgb 10.7 L (12.0-15.0) g/dl Hct 32.3 L (37-47) % Assessment and Plan Nausea/Vomiting and Diarrhea-chemotherapy related vs Gastroenteritis. R/O C.diff. Right breast cancer stage IIB(cT2 cN1 M0), UO quadrant, ER/NM positive, Her2 3+ positive by IHC on P-TCH Pulmonary Histocytosis. EF 59%. S/P Port placement. Counts and chem are OK. Plan is to give IVF-Zofran IV in the clinic. Stool for C.diff. If stable, will discharge from clinic or send to ER. RTC as scheduled. Medications: Prescriptions This Visit Medication Instructions Recorded Primary Care Provider: Lesley Asher Referring Provider: Ignacio Hoyt MD - Problem List (1) Breast cancer, right breast Status: Chronic Qualifiers: Breast location: upper outer quadrant of breast Estrogen receptor status: positive Patient sex: female Qualified Code(s): C50.411 - Malignant neoplasm of upper-outer quadrant of right female breast; Z17.0 - Estrogen receptor positive status [ER+] (2) Chemotherapy-induced nausea Status: Acute (3) Diarrhea Status: Acute Qualifiers: Diarrhea type: unspecified type Qualified Code(s): R19.7 - Diarrhea, unspecified Code Visit Office Visits / Consults: [id number] OV L4 Est 02/09/18 1203 <Electronically signed by Ignacio Hoyt MD> Date Ignacio Barrios Signature: Date (if applicable) CC: CBC W/DIFF, AUTOMATED Collected: 02/09/2018 Status: C Source: MAE 10:37 AM [facility] REPOSITORY Order Comment: Reason for Laboratory Test OV TYPE CODE TESTS RESULT OUT OF RANGE REFERENCE UNITS LAB L100.1000 4.4-11.0 K/mm3 Low WBC 2.9 LAB L100.1200 4.2-5.4 M/mm3 Low RBC 3.11 LAB L100.1300 12.0-15.0 g/dl Low HGB 10.7 LAB L100.1400 37-47 % Low HCT 32.3 LAB L100.1500 81-99 fL High MCV 103.9 LAB L100.1600 27.0-32.0 pg High MCH 34.4 LAB L100.1700 32-36 g/gl Normal MCHC 33.1 LAB L100.1810 11.6-14.6 % High RDW CV 19.5 LAB L100.1820 35.1-43.9 fl High RDW SD 72.2 LAB L100.1900 150-450 K/mm3 Normal PLT 158 LAB L100.2000 6.2-12.0 fl Normal MPV 10.5 LAB L100.2620 2.0-7.7 X10 3/uL Low Absolute Neut 1.2 Result Comment: AMENDED REPORT 02/09/183 Absolute Neut previously reported as: 1.5 L X10^3/uL LAB L100.2720 0.83-4.51 X10 3/ul Low Absolute Lymph 0.60 Result Comment: AMENDED REPORT 02/09/184 Absolute Lymph previously reported as: 0.51 L X10^3/ul LAB L100.3100 MANUAL DIFF CELLS Normal COUNTED 100 LAB L100.3200 47-70 % Low SEGS 27 LAB L100.3300 0-5 % High BAND 15 LAB L100.3400 0-1 % High META 10 LAB L100.3500 0-0 High MYELO 4 LAB L100.3600 0-0 High 1 PROMYELO LAB L100.3700 0-0 % High BLAST 3 alert LAB L100.3800 19-41 % LYMPH 21 Normal LAB L100.3900 0-10 % High 19 MONOCYTE LAB L100.7300 ANISO Normal RARE LAB L100.9900 PATH Normal REV Reviewed Result Comment: Leukopenia, neutropenia. Macrocytic anemia. Clinical correlation necessary. Zohaib Hartman M.D. 02/10/18 AMENDED REPORT 02/10/18 1513 PATH REV previously reported as: September kimberly Performed By: #### L100.0100 #### [facility] [address] [place], [address] COMPREHENSIVE METABOLIC Collected: 02/09/2018 Status: F Source: [facility] 10:37 AM [facility] REPOSITORY Order Comment: Reason for Laboratory Test OV TYPE CODE TESTS RESULT OUT OF RANGE REFERENCE UNITS LAB L501.0100 74-106 mg/dL High GLU 141 Result Comment: Fasting Glucose result greater than or equal to 126 mg/dL suggests DIABETES MELLITUS per A.D.A. criteria. Please note revised GLUCOSE reference range effective 2017. LAB L501.1000 7-18 mg/dL High BUN 21 LAB L501.1100 0.55-1.02 mg/dL Normal CREAT,SERUM 0.84 Result Comment: The validity of the calculated GFR AND GFRAA in patients over 70 years has not been determined. Clinical correlation is essential. LAB L501.1110 >60 mL/min Normal EST GFR 71 Result Comment: Non- GFR Calc LAB L501.1115 >60 mL/min Normal EST GFR - AA 86 Result Comment: GFR Calc LAB L501.1255 ml/min Normal Estimated CRCL 53.81 LAB L501.1300 10-20 RATIO High BUN/CRE 24.9 LAB L501.1500 6.4-8. g/dL Normal 2 T PROT 7.1 LAB L501.1800 3.2-5. g/dL Normal 0 ALB 3.4 LAB L501.1950 2.2-4. g/dL Normal 2 GLOB 3.7 LAB L501.2000 0.9-2. RATIO Normal 4 A/G 0.9 LAB L501.2200 8.5-10 mg/dL Normal .1 CA 8.7 LAB L501.4100 15-37 U/L Low AST 12 LAB L501.4305 45-117 U/L High ALK P 149 LAB L501.4405 13-56 U/L Normal ALT 19 LAB L501.4600 0.20-1 mg/dL Normal .00 T BILI 1.00 LAB L501.5300 136-14 mmol/L Normal 5 NA 137 LAB L501.5600 3.5-5. mmol/L Normal 1 K 3.7 LAB L501.5900 98-107 mmol/L Normal CL 99 LAB L501.6100 21.0-3 mmol/L Normal 2.0 CO2 27.0 LAB L501.6200 5-15 Normal GAP 11 Performed By: #### L500.4050, L501.5200 #### [facility] [address] [facility] [place], [address] MAGNESIUM Collected: 02/09/2018 Status: F Source: [facility] 10:37 AM [facility] REPOSITORY Order Comment: Reason for Laboratory Test OV TYPE CODE TESTS RESULT OUT OF RANGE REFERENCE UNITS LAB L501.5200 1.6-2.6 mg/dL Normal MG 2.1 Performed By: #### L500.4050, L501.5200 #### [facility] [address] [place], [address] ONCOLOGY VISIT REPORT Observed: 02/03/2018 Status: F Source: DODGE 4:30 PM [facility] REPOSITORY [facility] [address] [place] [address]. [place] [address] OFFICE VISIT Date of Service: 02/03/18 0937 MR#: [id number] Acct: [id number] Name: NURYS DIAZ Iveth Rep #: [id number] : 1945 From: Ignacio Hoyt MD Age/Sex: 72/F Location: [facility] Status: Signed Subjective - Date of Service Date of Service:: 02/03/18 - Chief Complaint F/u for chemotherapy. - History of Present Illness 72-year-old woman noticed a right breast mass in July 2017, ultrasound/mammogram on 08/13/2017 showed irregular spiculated solid mass at 9 o'clock position measuring 2.5 cm in addition to enlarged lymph nodes in the axilla. She had right breast and axillary lymph node biopsy on August 27, 2017 which showed right breast invasive ductal carcinoma, and metastatic disease in Right Axillary lymph node, ER/NM positive, HER-2 3+ positive. She was seen at [facility] by Dr. Jimenez, declined chemotherapy. CT chest/abdomen/pelvis showed right breast nodules with multiple right axillary lymph nodes, no murmurs pulmonary nodules, atherosclerotic disease with coronary calcifications, pulmonary hypertension, and emphysematous changes. There was no evidence of metastatic disease in abdomen or pelvis. She had CT-guided needle biopsy of lung nodule on 09/25/2017, Pathology showed pulmonary Langerhans cell histiocytosis. She had a change of heart and now willing to consider neoadjuvant chemotherapy with Her2 targeted therapy and has elected to do it in [facility]. Port placed 10/28/[address] English and MUGA scan obtained 10/24/2017 showed EF 59%. She started therapy with TCH+P on 11/10/2017. Comes in for C5D1. Feels tired. - Past Medical/Social History Past Medical History Cancer: Breast cancer Social History Social History: No changes Smoking Status Current every day smoker Review of Systems Constitutional:: Denies: Fatigue, Fever, Sweats, Weight loss, Appetite change, Chills Cardiovascular:: Denies: Chest pain, Palpitations, Dyspnea on exertion, Orthopnea, PND, Shortness of breath Respiratory: Denies: Cough, Hemoptysis, Shortness of Breath, Wheezing Gastrointestinal:: Denies: Abdominal pain, Nausea, Vomiting, Diarrhea, Constipation, Hematochezia Genitourinary: Denies: Dysuria, Hematuria, 15, Flank pain Musculoskeletal:: Denies: Back pain, Myalgia, Arthralgia Skin: Denies: Rash, Skin Changes, Wounds Neurological:: Denies: Headache, Dizziness, Visual changes, Tinnitus, Hearing loss Psychiatric: Denies: Anxiety, Depression, Homicidal Ideations, Suicidal Ideations Vital Signs Height 5 ft 4 in Weight: 78.471 kg Weight in Pounds 173.0 lbs Pulse Ox 96 - Physical Exam General: Alert, Oriented x3, Cooperative, - - Port L IC area HEENT: Atraumatic, PERRLA, EOMI, Normocephalic Oropharynx:: Dry mucosa Neck:: Supple, Trachea midline. Negative for: JVD, bilateral Cardiac:: Regular rate, Regular rhythm, Normal S1, Normal S2. Negative for: Murmur Lungs: Clear to auscultation, Excusion symmetrical. Negative for: Rhonchi, Wheezes Extremities:: Negative for: Cyanosis, Edema Neurological: Neuro grossly intact Skin:: Negative for: Lesions, Rash, Petechiae, Ecchymosis Psychiatric:: Appropriate affect, Euthymic Lymphatics:: Negative for: Cervical lymphadenopathy, Supraclavicular lymphadenopathy, Axillary lymphadenopathy Laboratory Data: Laboratory Tests WBC 8.7 (4.4-11.0) K/mm3 RBC 2.95 L (4.2-5.4) M/mm3 Hgb 10.0 L (12.0-15.0) g/dl Hct 30.7 L (37-47) % Assessment and Plan Right breast cancer stage IIB(cT2 cN1 M0), UO quadrant, ER/NM positive, Her2 3+ positive by IHC on P-TCH Pulmonary Histocytosis. EF 59%. S/P Port placement. Due for C5. Counts are OK for therapy. Plan is to proceed with Cycle 5 of P-TCH. RTC 2 wks with CBC,CMP for toxicity check. Medications: Prescriptions This Visit Medication Instructions Recorded Primary Care Provider: Lesley Asher Referring Provider: Ignacio Hoyt MD - Problem List (1) Breast cancer, right breast Status: Chronic Qualifiers: Breast location: upper outer quadrant of breast Estrogen receptor status: positive Patient sex: female Qualified Code(s): C50.411 - Malignant neoplasm of upper-outer quadrant of right female breast; Z17.0 - Estrogen receptor positive status [ER+] (2) Chemotherapy management, encounter for Status: Acute Code Visit Office Visits / Consults: [id number] OV L5 Est 02/03/18 1630 <Electronically signed by Ignacio Hoyt MD> Date Ignacio Hoyt MD Cosigner Signature: Date (if applicable) CC: CBC W/DIFF, AUTOMATED Collected: 02/03/2018 Status: F Source: MAE 8:28 AM [facility] REPOSITORY TYPE CODE TESTS RESULT OUT OF RANGE REFERENCE UNITS LAB L100.1000 4.4-11.0 K/mm3 Normal WBC 8.7 LAB L100.1200 4.2-5.4 M/mm3 Low RBC 2.95 LAB L100.1300 12.0-15.0 g/dl Low HGB 10.0 LAB L100.1400 37-47 % Low HCT 30.7 LAB L100.1500 81-99 fL High MCV 104.1 LAB L100.1600 27.0-32.0 pg High MCH 33.9 LAB L100.1700 32-36 g/gl Normal MCHC 32.6 LAB L100.1810 11.6-14.6 % High RDW CV 20.9 LAB L100.1820 35.1-43.9 fl High RDW SD 78.5 LAB L100.1900 150-450 K/mm3 Normal PLT 229 LAB L100.2000 6.2-12.0 fl Normal MPV 9.4 LAB L100.2100 47-70 % High NEUT% 88.6 LAB L100.2200 19-41 % Low LY% 5.5 LAB L100.2300 0-10 % Normal MONO% 5.6 LAB L100.2400 0-5 % Normal EO% 0.0 LAB L100.2500 0-1 % Normal BASO% 0.0 LAB L100.2550 0.0-0.9 % Normal IM GRAN % 0.300 Result Comment: IG% - Immature Granulocytes (promyelocytes, myelocytes and metamyelocytes) > 1% indicates that a LEFT SHIFT is Present. LAB L100.2620 2.0-7.7 X10 3/uL Normal Absolute Neut 7.7 LAB L100.2720 0.83-4.51 X10 3/ul Low Absolute Lymph 0.48 LAB L100.4500 Normal SMEAR COMMENT COMMENT Result Comment: SLIDE SCANNED - LYMPHOPENIA, 1+ ANISO. Performed By: #### L100.0100 #### [facility] [address] [place], [address] COMPREHENSIVE METABOLIC Collected: 02/03/2018 Status: F Source: MAE [place] 8:28 AM [facility] REPOSITORY Order Comment: Reason for Laboratory Test Chemotherapy TYPE CODE TESTS RESULT OUT OF RANGE REFERENCE UNITS LAB L501.0100 74-106 mg/dL High GLU 176 Result Comment: Fasting Glucose result greater than or equal to 126 mg/dL suggests DIABETES MELLITUS per A.D.A. criteria. Please note revised GLUCOSE reference range effective 2017. LAB L501.1000 7-18 mg/dL Normal BUN 10 LAB L501.1100 0.55-1.02 mg/dL Normal CREAT,SERUM 0.64 Result Comment: The validity of the calculated GFR AND GFRAA in patients over 70 years has not been determined. Clinical correlation is essential. LAB L501.1110 >60 mL/min Normal EST GFR 97 Result Comment: Non- GFR Calc LAB L501.1115 >60 mL/min Normal EST GFR - AA 117 Result Comment: GFR Calc LAB L501.1255 ml/min Normal Estimated CRCL 45.20 LAB L501.1300 10-20 RATIO Normal BUN/CRE 15.5 LAB L501.1500 6.4-8. g/dL Normal 2 T PROT 7.4 LAB L501.1800 3.2-5. g/dL Normal 0 ALB 3.4 LAB L501.1950 2.2-4. g/dL Normal 2 GLOB 4.0 LAB L501.2000 0.9-2. RATIO Low 4 A/G 0.8 LAB L501.2200 8.5-10 mg/dL Normal .1 CA 8.9 LAB L501.4100 15-37 U/L Low AST 11 LAB L501.4305 45-117 U/L High ALK P 141 LAB L501.4405 13-56 U/L Normal ALT 24 LAB L501.4600 0.20-1 mg/dL Normal .00 T BILI 0.20 LAB L501.5300 136-14 mmol/L Normal 5 NA 139 LAB L501.5600 3.5-5. mmol/L Normal 1 K 3.8 LAB L501.5900 98-107 mmol/L Normal CL 103 LAB L501.6100 21.0-3 mmol/L Normal 2.0 CO2 27.0 LAB L501.6200 5-15 Normal GAP 9 Performed By: #### L500.4050, L501.5200 #### [facility] [address] [place], [address] MAGNESIUM Collected: 02/03/2018 Status: F Source: [facility] 8:28 AM [facility] REPOSITORY Order Comment: Reason for Laboratory Test Chemotherapy TYPE CODE TESTS RESULT OUT OF RANGE REFERENCE UNITS LAB L501.5200 1.6-2.6 mg/dL Normal MG 2.0 Performed By: #### L500.4050, L501.5200 #### [facility] [address] [place], [address] ONCOLOGY VISIT REPORT Observed: 01/27/2018 Status: F Source: [facility] 11:31 AM [facility] REPOSITORY [facility] [address] [place] [address]. [place] [address] OFFICE VISIT Date of Service: 01/27/18 1059 MR#: [id number] Acct: [id number] Name: NURYS DIAZ Iveth Rep #: [id number] : 1945 From: Eloise ALY Age/Sex: 72/F Location: [facility] Status: Signed Subjective - Date of Service Date of Service:: 01/27/18 - Chief Complaint Cycle 4 TCH+P Toxicity Assessment - History of Present Illness 72-year-old woman noticed a right breast mass in July 2017, ultrasound/mammogram on 08/13/2017 showed irregular spiculated solid mass at 9 o'clock position measuring 2.5 cm in addition to enlarged lymph nodes in the axilla. She had right breast and axillary lymph node biopsy on August 27, 2017 which showed right breast invasive ductal carcinoma, and metastatic disease in Right Axillary lymph node, ER/NM positive, HER-2 3+ positive. She was seen at [facility] by Dr. Jimenez, declined chemotherapy. CT chest/abdomen/pelvis showed right breast nodules with multiple right axillary lymph nodes, no murmurs pulmonary nodules, atherosclerotic disease with coronary calcifications, pulmonary hypertension, and emphysematous changes. There was no evidence of metastatic disease in abdomen or pelvis. She had CT-guided needle biopsy of lung nodule on 09/25/2017, Pathology showed pulmonary Langerhans cell histiocytosis. She had a change of heart and now willing to consider neoadjuvant chemotherapy with Her2 targeted therapy and has elected to do it in [facility]. Port placed 10/28/[address] English and MUGA scan obtained 10/24/2017 showed EF 59%. She started therapy with TCH+P on 11/10/2017. - Interval History The patient is presenting to clinic for cycle 4 toxicity assessment. Concerns today include sore throat and perineal soreness/tenderness. Both symptoms began 01/15 and lasted approx 4 days, symptoms resolved without intervention. Noted discomfort when wiping, otherwise denies vaginal discharge and redness. Experienced significant generalized weakness, fatigue and taste disturbance now improved. Did not interfere with ADLs. Denies any increase in chronic cough and exertional dyspnea from baseline. Nausea minimal, required 2 doses of prn antiemetics, did not result in any episodes of emesis. No diarrhea. No dizziness. - Past Medical/Social History Past Medical History Cancer: Breast cancer Social History Social History: No changes Smoking Status Current every day smoker Review of Systems Constitutional:: Reports: Weakness, Fatigue. Denies: Fever, Sweats, Weight loss, Appetite change, Chills Cardiovascular:: Reports: Dyspnea on exertion. Denies: Chest pain, Palpitations, Orthopnea, PND, Shortness of breath Respiratory: Reports: Wheezing - unchanged. Denies: Cough, Hemoptysis Gastrointestinal:: Reports: Nausea. Denies: Abdominal pain, Vomiting, Diarrhea, Constipation, Melena, Hematochezia Genitourinary: Denies: Dysuria, Hematuria, 15, Flank pain Musculoskeletal:: Denies: Back pain, Myalgia, Arthralgia Skin: Denies: Rash, Skin Changes, Wounds Neurological:: Denies: Headache, Dizziness, Numbness, Tingling, Visual changes, Tinnitus, Hearing loss Psychiatric: Denies: Anxiety, Depression, Homicidal Ideations, Suicidal Ideations Vital Signs Height 5 ft 4 in Weight: 173 lb Weight in Pounds 173.0 lbs Pulse Ox 96 - Physical Exam General: Alert, Oriented x3, No apparent distress HEENT: Atraumatic, Normocephalic, - - wears glasses Oropharynx:: Dry mucosa. Negative for: Ulcerated lesions Neck:: Supple, Trachea midline. Negative for: JVD, bilateral Cardiac:: Regular rate, Regular rhythm, Normal S1, Normal S2 Lungs: Wheezes - faint expiratory throughout, Excusion symmetrical. Negative for: Rhonchi, Tachypneic, Increased respiratory effort Abdomen:: Bowel sounds x 4, Soft, Non-tender, Non-distended. Negative for: Hepatosplenomegaly Extremities:: Negative for: Cyanosis, Edema Neurological: Neuro grossly intact Skin:: - - Port left upper chest accessed with gripper covered with DSD. Negative for: Lesions, Rash, Petechiae, Ecchymosis Psychiatric:: Appropriate affect, Euthymic Lymphatics:: Negative for: Cervical lymphadenopathy, Supraclavicular lymphadenopathy, Axillary lymphadenopathy Assessment and Plan 1. Stage IIB(cT2 cN1 M0), invasive ductal carcinoma UO quadrant right breast, ER/NM positive, Her2 3+ positive by IHC- Began neoadjuvant Taxotere/carboplatin/Perjeta/Herceptin on 11/10/17. Overall, has tolerated treatment and Neulasta well with c/o N/V/D controlled with Zofran and Imodium and moderate to severe fatigue now improved. Echo 01/06/18 shows normal LV function and ejection fraction 55%. CBC reviewed and values are acceptable for GOPI. No other > grade 1 symptoms of toxicity. Declined offer of IVFs today. 2. Exertional dyspnea-according to the patient this is unchanged from baseline. Now using her Breo inhaler as advised. 3. Sore throat/perineal pain- Limited to 5 days and symptoms resolved without intervention. Based on her description, possible candidiasis. 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 4. Chemotherapy induced anemia- As evidenced by Hgb 9.4 today. Will continue to monitor. RTC in 1 week for consideration of cycle 5 TCH+P. Eloise New, MSN, TRANSITION COACH, AOCNP Medications: Prescriptions This Visit Medication Instructions Recorded Primary Care Provider: Lesley Asher Referring Provider: Ignacio Hoyt MD - Problem List (1) Breast cancer, right breast Status: Chronic Qualifiers: Breast location: upper outer quadrant of breast Estrogen receptor status: positive Patient sex: female Qualified Code(s): C50.411 - Malignant neoplasm of upper-outer quadrant of right female breast; Z17.0 - Estrogen receptor positive status [ER+] (2) Encounter for monitoring cardiotoxic drug therapy Status: Acute (3) Chemotherapy management, encounter for Status: Acute (4) Exertional dyspnea Status: Acute (5) Sore throat Status: Resolved (6) Perineal pain Status: Resolved 01/27/18 1131 <Electronically signed by Eloise New NP-C> Date Eloise New BASIC ACOUSTIC ANALYST-C Cosigner Signature: Date (if applicable) CC: CBC W/DIFF, AUTOMATED Collected: 01/27/2018 Status: F Source: [facility] 10:28 AM [facility] REPOSITORY Order Comment: Reason for Laboratory Test . TYPE CODE TESTS RESULT OUT OF RANGE REFERENCE UNITS LAB L100.1000 4.4-11.0 K/mm3 Normal WBC 10.7 LAB L100.1200 4.2-5.4 M/mm3 Low RBC 2.82 LAB L100.1300 12.0-15.0 g/dl Low HGB 9.4 LAB L100.1400 37-47 % Low HCT 28.7 LAB L100.1500 81-99 fL High MCV 101.8 LAB L100.1600 27.0-32.0 pg High MCH 33.3 LAB L100.1700 32-36 g/gl Normal MCHC 32.8 LAB L100.1810 11.6-14.6 % High RDW CV 20.3 LAB L100.1820 35.1-43.9 fl High RDW SD 73.5 LAB L100.1900 150-450 K/mm3 Low PLT 96 LAB L100.2000 6.2-12.0 fl Normal MPV 9.4 LAB L100.2100 47-70 % High NEUT% 81.9 LAB L100.2200 19-41 % Low LY% 11.1 LAB L100.2300 0-10 % Normal MONO% 6.7 LAB L100.2400 0-5 % Normal EO% 0.0 LAB L100.2500 0-1 % Normal BASO% 0.1 LAB L100.2550 0.0-0.9 % Normal IM GRAN % 0.200 Result Comment: IG% - Immature Granulocytes (promyelocytes, myelocytes and metamyelocytes) > 1% indicates that a LEFT SHIFT is Present. LAB L100.2620 2.0-7.7 X10 3/uL High Absolute Neut 8.7 LAB L100.2720 0.83-4.51 X10 3/ul Normal Absolute Lymph 1.18 Performed By: #### L100.0100, L500.4050 #### [facility] [address] [place], [address] COMPREHENSIVE METABOLIC Collected: 01/27/2018 Status: F Source: [facility] 10:28 AM [facility] REPOSITORY Order Comment: Reason for Laboratory Test . TYPE CODE TESTS RESULT OUT OF RANGE REFERENCE UNITS LAB L501.0100 74-106 mg/dL Normal GLU 105 Result Comment: Fasting Glucose result from 100 to 125 mg/dL suggests IMPAIRED HOMEOSTASIS per A.D.A. criteria. Please note revised GLUCOSE reference range effective 2017. LAB L501.1000 7-18 mg/dL Normal BUN 10 LAB L501.1100 0.55-1.02 mg/dL Low CREAT,SERUM 0.50 Result Comment: The validity of the calculated GFR AND GFRAA in patients over 70 years has not been determined. Clinical correlation is essential. LAB L501.1110 >60 mL/min Normal EST GFR 129 Result Comment: Non- GFR Calc LAB L501.1115 >60 mL/min Normal EST GFR - AA 157 Result Comment: GFR Calc LAB L501.1255 ml/min Normal Estimated CRCL 45.20 LAB L501.1300 10-20 RATIO Normal BUN/CRE 20.0 LAB L501.1500 6.4-8. g/dL Normal 2 T PROT 6.8 LAB L501.1800 3.2-5. g/dL Normal 0 ALB 3.2 LAB L501.1950 2.2-4. g/dL Normal 2 GLOB 3.6 LAB L501.2000 0.9-2. RATIO Normal 4 A/G 0.9 LAB L501.2200 8.5-10 mg/dL Low .1 CA 8.3 LAB L501.4100 15-37 U/L Normal AST 15 LAB L501.4305 45-117 U/L High ALK P 156 LAB L501.4405 13-56 U/L Normal ALT 39 LAB L501.4600 0.20-1 mg/dL Normal .00 T BILI 0.80 LAB L501.5300 136-14 mmol/L Normal 5 NA 137 LAB L501.5600 3.5-5. mmol/L Normal 1 K 3.5 LAB L501.5900 98-107 mmol/L Normal CL 103 LAB L501.6100 21.0-3 mmol/L Normal 2.0 CO2 28.0 LAB L501.6200 5-15 Normal GAP 6 Performed By: #### L100.0100, L500.4050 #### [facility] [address] [place], [address] ONCOLOGY VISIT REPORT Observed: 01/13/2018 Status: F Source: [facility] 10:57 AM [facility] REPOSITORY [facility] [address] [place] [address] OFFICE VISIT Date of Service: 01/13/18 0847 MR#: [id number] Acct: [id number] Name: NURYS DIAZ Rep #: [id number] : 1945 From: Eloise ALY Age/Sex: 72/F Location: ONC Status: Signed Subjective - Date of Service Date of Service:: 01/13/18 - Chief Complaint Cycle 4 TCH+P - History of Present Illness 72-year-old woman noticed a right breast mass in July 2017, ultrasound/mammogram on 08/13/2017 showed irregular spiculated solid mass at 9 o'clock position measuring 2.5 cm in addition to enlarged lymph nodes in the axilla. She had right breast and axillary lymph node biopsy on August 27, 2017 which showed right breast invasive ductal carcinoma, and metastatic disease in Right Axillary lymph node, ER/NM positive, HER-2 3+ positive. She was seen at [facility] by Dr. Jimenez, declined chemotherapy. CT chest/abdomen/pelvis showed right breast nodules with multiple right axillary lymph nodes, no murmurs pulmonary nodules, atherosclerotic disease with coronary calcifications, pulmonary hypertension, and emphysematous changes. There was no evidence of metastatic disease in abdomen or pelvis. She had CT-guided needle biopsy of lung nodule on 09/25/2017, Pathology showed pulmonary Langerhans cell histiocytosis. She had a change of heart and now willing to consider neoadjuvant chemotherapy with Her2 targeted therapy and has elected to do it in [facility]. Port placed 10/28/[address] English and MUGA scan obtained 10/24/2017 showed EF 59%. She started therapy with TCH+P on 11/10/2017. - Interval History The patient is presenting to clinic for an evaluation anticipating she will receive cycle 4 TCH+P. Underwent echo last week which showed EF essentially unchanged. Took her dexamethasone yesterday and the morning as advised. Patient denies any concerns r/t today's visit, stating I feel great, although son who is accompanying her today voices concern about witnessed exertional dyspnea earlier this morning. States episode occurred after walking around her house for a short time immediately subsequent to smoking a cigarette. Patient admits that this did occur although denies chest pain palpitations at the time. Patient states that this is normal and admits that she has not been utilizing her Breo inhaler as advised. Further denies headaches, dizziness, worsening/changes of chronic cough, dyspnea while lying supine and swelling and pain of her extremities. - Past Medical/Social History Past Medical History Cancer: Breast cancer Social History Social History: No changes Smoking Status Current every day smoker Review of Systems Constitutional:: Reports: Weakness, Fatigue. Denies: Fever, Sweats, Weight loss, Appetite change, Chills Cardiovascular:: Reports: Dyspnea on exertion. Denies: Chest pain, Palpitations, Orthopnea, PND, Shortness of breath Respiratory: Reports: Cough, Shortness of Breath. Denies: Hemoptysis, Wheezing Gastrointestinal:: Denies: Abdominal pain, Nausea, Vomiting, Diarrhea, Constipation, Melena, Hematochezia Genitourinary: Denies: Dysuria, Hematuria, 15, Flank pain Musculoskeletal:: Denies: Back pain, Myalgia, Arthralgia Skin: Denies: Rash, Skin Changes, Wounds Neurological:: Denies: Headache, Dizziness, Visual changes, Tinnitus, Hearing loss Psychiatric: Denies: Anxiety, Depression, Homicidal Ideations, Suicidal Ideations Vital Signs Height 5 ft 4 in Weight: 176 lb 6.4 oz Weight in Pounds 176.4 lbs Pulse Ox 94 - Physical Exam General: Alert, Oriented x3, No apparent distress HEENT: Atraumatic, Normocephalic, - - wears glasses Oropharynx:: Negative for: Dry mucosa, Ulcerated lesions Neck:: Supple, Trachea midline. Negative for: JVD, bilateral Cardiac:: Regular rate, Regular rhythm, Normal S1, Normal S2. Negative for: Murmur Lungs: Wheezes - faint expiratory, Diminished, Excusion symmetrical. Negative for: Rhonchi, Increased respiratory effort Abdomen:: Bowel sounds x 4, Soft, Non-tender, Non-distended. Negative for: Hepatosplenomegaly Extremities:: Negative for: Cyanosis, Edema Neurological: Neuro grossly intact Skin:: - - port left upper chest access with gripper covered with DSD. Negative for: Lesions, Rash, Petechiae, Ecchymosis Psychiatric:: Appropriate affect, Euthymic Lymphatics:: Negative for: Cervical lymphadenopathy, Supraclavicular lymphadenopathy, Axillary lymphadenopathy Laboratory Data: Laboratory Tests WBC 10.3 Hgb 10.3 L Plt Count 244 Absolute Neuts (auto) 8.6 H Creatinine 0.68 Diagnostic Data: 01/06/2018 echocardiogram shows normal LV function and ejection fraction 55%. Assessment and Plan 1. Stage IIB(cT2 cN1 M0), invasive ductal carcinoma UO quadrant right breast, ER/NM positive, Her2 3+ positive by IHC- Began neoadjuvant Taxotere/carboplatin/Perjeta/Herceptin on 11/10/17. Overall, has tolerated treatment and Neulasta well with c/o N/V/D controlled with Zofran and Imodium and moderate to severe fatigue now improved. Echo last week shows normal LV function and ejection fraction 55% CBC reviewed and values are within acceptable parameters for treatment. She is otherwise not endorsing any signs or symptoms of toxicity contraindicating chemotherapy today and will proceed with cycle 4 TCH plus P Neulasta tomorrow. 2. Exertional dyspnea-according to the patient this is unchanged from baseline although son who is accompanying her today voices concern. SPO2 98% echocardiogram obtained last week shows ejection fraction 55% and normal LV function. Patient is not endorsing chest pain palpitations or shortness of breath at rest. Given the context of exertional dyspnea occurring immediately subsequent to her smoking a cigarette earlier this morning in addition to the degree of chemotherapy-induced anemia present and the fact that she has not been using her Breo inhaler as advised, no further diagnostic testing to be completed. Patient has been counseled she should seek immediate medical attention if she were to experience an increase in the frequency of dyspnea and/or chest pain in the future. RTC in 2 weeks for cycle 4 toxicity assessment. Eloise New, MSN, TRANSITION COACH, AOCNP Medications: Prescriptions This Visit Medication Instructions Recorded Medications Added to Medication List This Visit 0.9% Normal Saline Med 01/13/18 00:00 Active 250 ml IV UD PRN 0.9% Saline Lock Med 01/13/18 00:00 Active Primary Care Provider: Lesley Asher Referring Provider: Ignacio Hoyt MD - Problem List (1) Breast cancer, right breast Status: Chronic Qualifiers: Breast location: upper outer quadrant of breast Estrogen receptor status: positive Patient sex: female Qualified Code(s): C50.411 - Malignant neoplasm of upper-outer quadrant of right female breast; Z17.0 - Estrogen receptor positive status [ER+] (2) Encounter for monitoring cardiotoxic drug therapy Status: Acute (3) Chemotherapy management, encounter for Status: Acute (4) Exertional dyspnea Status: Acute 01/13/18 1057 <Electronically signed by Eloise SALMERNOC> Date Eloise SALMERONC Cosigner Signature: Date (if applicable) CC: CBC W/DIFF, AUTOMATED Collected: 01/13/2018 Status: F Source: [facility] 8:22 AM [facility] REPOSITORY TYPE CODE TESTS RESULT OUT OF RANGE REFERENCE UNITS LAB L100.1000 4.4-11.0 K/mm3 Normal WBC 10.3 LAB L100.1200 4.2-5.4 M/mm3 Low RBC 3.18 LAB L100.1300 12.0-15.0 g/dl Low HGB 10.3 LAB L100.1400 37-47 % Low HCT 31.5 LAB L100.1500 81-99 fL High MCV 99.1 LAB L100.1600 27.0-32.0 pg High MCH 32.4 LAB L100.1700 32-36 g/gl Normal MCHC 32.7 LAB L100.1810 11.6-14.6 % High RDW CV 19.1 LAB L100.1820 35.1-43.9 fl High RDW SD 67.3 LAB L100.1900 150-450 K/mm3 Normal PLT 244 LAB L100.2000 6.2-12.0 fl Normal MPV 9.5 LAB L100.2100 47-70 % High NEUT% 83.6 LAB L100.2200 19-41 % Low LY% 8.7 LAB L100.2300 0-10 % Normal MONO% 7.5 LAB L100.2400 0-5 % Normal EO% 0.0 LAB L100.2500 0-1 % Normal BASO% 0.0 LAB L100.2550 0.0-0.9 % Normal IM GRAN % 0.200 Result Comment: IG% - Immature Granulocytes (promyelocytes, myelocytes and metamyelocytes) > 1% indicates that a LEFT SHIFT is Present. LAB L100.2620 2.0-7.7 X10 3/uL High Absolute Neut 8.6 LAB L100.2720 0.83-4.51 X10 3/ul Normal Absolute Lymph 0.89 LAB L100.4500 Normal SMEAR COMMENT COMMENT Result Comment: SLIDE SCANNED - 1+ ANISO. Performed By: #### L100.0100, L500.4050, L501.5200 #### [facility] [address] [place], [address] COMPREHENSIVE METABOLIC Collected: 01/13/2018 Status: F Source: [facility] 8:22 AM [facility] REPOSITORY Order Comment: Reason for Laboratory Test Chemotherapy TYPE CODE TESTS RESULT OUT OF RANGE REFERENCE UNITS LAB L501.0100 74-106 mg/dL High GLU 136 Result Comment: Fasting Glucose result greater than or equal to 126 mg/dL suggests DIABETES MELLITUS per A.D.A. criteria. Please note revised GLUCOSE reference range effective 2017. LAB L501.1000 7-18 mg/dL Normal BUN 12 LAB L501.1100 0.55-1.02 mg/dL Normal CREAT,SERUM 0.68 Result Comment: The validity of the calculated GFR AND GFRAA in patients over 70 years has not been determined. Clinical correlation is essential. LAB L501.1110 >60 mL/min Normal EST GFR 91 Result Comment: Non- GFR Calc LAB L501.1115 >60 mL/min Normal EST GFR - AA 111 Result Comment: GFR Calc LAB L501.1255 ml/min Normal Estimated CRCL 45.20 LAB L501.1300 10-20 RATIO Normal BUN/CRE 17.7 LAB L501.1500 6.4-8. g/dL Normal 2 T PROT 7.4 LAB L501.1800 3.2-5. g/dL Normal 0 ALB 3.4 LAB L501.1950 2.2-4. g/dL Normal 2 GLOB 4.0 LAB L501.2000 0.9-2. RATIO Low 4 A/G 0.8 LAB L501.2200 8.5-10 mg/dL Normal .1 CA 9.0 LAB L501.4100 15-37 U/L Low AST 13 LAB L501.4305 45-117 U/L High ALK P 135 LAB L501.4405 13-56 U/L Normal ALT 32 LAB L501.4600 0.20-1 mg/dL Normal .00 T BILI 0.30 LAB L501.5300 136-14 mmol/L Normal 5 NA 139 LAB L501.5600 3.5-5. mmol/L Normal 1 K 4.0 LAB L501.5900 98-107 mmol/L Normal CL 103 LAB L501.6100 21.0-3 mmol/L Normal 2.0 CO2 30.0 LAB L501.6200 5-15 Normal GAP 6 Performed By: #### L100.0100, L500.4050, L501.5200 #### [facility] [address] [place], [address] MAGNESIUM Collected: 01/13/2018 Status: F Source: [facility] 8:22 AM [facility] REPOSITORY Order Comment: Reason for Laboratory Test Chemotherapy TYPE CODE TESTS RESULT OUT OF RANGE REFERENCE UNITS LAB L501.5200 1.6-2.6 mg/dL Normal MG 2.1 Performed By: #### L100.0100, L500.4050, L501.5200 #### [facility] [address] [place], [address] ECHOCARDIOGRAM COMPLETE Observed: 01/06/2018 Status: F Source: [facility] 8:09 PM [facility] REPOSITORY [facility] [address] [place] [address] Echo Complete 01/06/18 1421 MR#: [id number] Acct: [id number] Name: NURYS DIAZ Rep #: [id number] : 1945 72 From: Dalton Toscano MD Attending Dr: Eloise New Status: REG CLI Ordering Dr: Eloise New Date: 01/06/18 Location: [facility] Sex: F C Admitted: Reason For Study: Breast Cancer, high risk meds. Procedure This was a 2D Doppler, Color Flow transthoracic echocardiogram. The study was technically difficult. Exam performed in department. Left Ventricle Normal LV size. Left ventricular systolic function is normal. The estimated ejection fraction is 55 %. No regional wall motion abnormalities noted. Right Ventricle Normal RV size. Normal systolic function. Atria The left atrium is mildly enlarged. Normal right atrium. No doppler evidence for ASD. Mitral Valve There is no mitral annular calcification. Mild focal mitral valve calcification of the posterior leaflet. Mild (1+) mitral valve insufficiency. Tricuspid Valve Normal tricuspid valve. Trivial tricuspid valve insufficiency. Unable to estimate RV systolic pressure/pulmonary artery pressure due to technically difficult study. Aortic Valve The aortic valve is not well visualized. Pulmonic Valve The pulmonic valve is not well visualized. Great Vessels Normal sized aortic root. Pericardium/Pleural No pericardial effusion. MMode/2D Measurements AND Calculations LVIDd: 5.3 cm IVSd: 1.1 cm Ao root diam: 2.6 cm LVIDs: 3.2 cm LVPWd: 1.2 cm LA dimension: 3.9 cm RVDd: 3.5 cm FS: 39.0 % LAV(MOD-bp): 90.8 ml LA A4 area: 25.0 cm2 RA A4 area: 14.8 cm2 LAV(MOD-bp) Indexed: 49.4 ml/m2 LAV(MOD-sp2): 87.8 ml LAV(MOD-sp4): 88.2 ml Doppler Measurements AND Calculations MV E max romeo: 109.0 cm/sec Lat Peak E' Romeo: 9.7 cm/sec Med Peak E' Romeo: 8.0 cm/sec MV A max romeo: 103.1 cm/sec E/E' lat: 11.2 E/E' med: 13.6 MV E/A: 1.1 Ao V2 max: 148.7 cm/sec LV V1 max: 106.4 cm/sec PA V2 max: 91.3 cm/sec Ao max P.8 mmHg LV V1 max P.5 mmHg Interpretation Summary The study was technically difficult. Left ventricular systolic function is normal. The estimated ejection fraction is 55 %. The left atrium is mildly enlarged. Mild focal mitral valve calcification of the posterior leaflet. Mild (1+) mitral valve insufficiency. Trivial tricuspid valve insufficiency. Unable to estimate RV systolic pressure/pulmonary artery pressure due to technically difficult study. Transmitral diastolic flow velocities suggest diastolic dysfunction (pseudonormal pattern). Ordering Physician: Eloise New Referring Physician: Gayle Asher Performed By: Carissa Chow, ALEXANDRA, RVT 01/06/182007 Date Dalton Toscano MD CC: Eloise New; LESLEY ASHER; Eloise New BASIC ACOUSTIC ANALYST Date Dictated: 01/06/18 1421 Date Transcribed: 01/06/182007 Batch Tester: Signed ONCOLOGY VISIT REPORT Observed: 01/06/2018 Status: F Source: [facility] 4:17 PM [facility] REPOSITORY [facility] [address] [place] [address] OFFICE VISIT Date of Service: 01/06/18 1339 MR#: [id number] Acct: [id number] Name: NURYS DIAZ Rep #: [id number] : 1945 From: Eloise ALY Age/Sex: 72/F Location: OMD Status: Signed Subjective - Date of Service Date of Service:: 01/06/18 - Chief Complaint Cycle 3 TCH+P TOXICITY ASSESSMENT - History of Present Illness 72-year-old woman noticed a right breast mass in July 2017, ultrasound/mammogram on 08/13/2017 showed irregular spiculated solid mass at 9 o'clock position measuring 2.5 cm in addition to enlarged lymph nodes in the axilla. She had right breast and axillary lymph node biopsy on August 27, 2017 which showed right breast invasive ductal carcinoma, and metastatic disease in Right Axillary lymph node, ER/NM positive, HER-2 3+ positive. She was seen at [facility] by Dr. Jimenez, declined chemotherapy. CT chest/abdomen/pelvis showed right breast nodules with multiple right axillary lymph nodes, no murmurs pulmonary nodules, atherosclerotic disease with coronary calcifications, pulmonary hypertension, and emphysematous changes. There was no evidence of metastatic disease in abdomen or pelvis. She had CT-guided needle biopsy of lung nodule on 09/25/2017, Pathology showed pulmonary Langerhans cell histiocytosis. She had a change of heart and now willing to consider neoadjuvant chemotherapy with Her2 targeted therapy and has elected to do it in [facility]. Port placed 10/28/[address] English and MUGA scan obtained 10/24/2017 showed EF 59%. She started therapy with TCH+P on 11/10/2017. - Interval History The patient is presenting to clinic for cycle 3 toxicity assessment. Reports mild nausea/vomiting/diarrhea occurring day 5 of cycle, resolved with administration of antiemetics and Imodium. Appetite good, PO fluid intake likely adequate. Fatigue moderate, not interfering with ADLs. Denies worsening of dyspnea from baseline. Met with Dr. Farrell last week. - Past Medical/Social History Past Medical History Cancer: Breast cancer Social History Social History: No changes Smoking Status Current every day smoker Review of Systems Constitutional:: Reports: Fatigue. Denies: Fever, Sweats, Weight loss, Appetite change, Chills Cardiovascular:: Denies: Chest pain, Palpitations, Dyspnea on exertion, Orthopnea, PND, Shortness of breath Respiratory: Reports: Shortness of breath upon exertion - chronic. Denies: Cough, Hemoptysis, Wheezing Gastrointestinal:: Reports: Nausea - see HPI, Vomiting, Diarrhea. Denies: Abdominal pain, Constipation, Hematochezia Genitourinary: Denies: Dysuria, Hematuria, 15, Flank pain Musculoskeletal:: Denies: Back pain, Myalgia, Arthralgia Skin: Denies: Rash, Skin Changes, Wounds Neurological:: Denies: Headache, Dizziness, Numbness, Tingling, Visual changes, Tinnitus, Hearing loss Psychiatric: Denies: Anxiety, Depression, Homicidal Ideations, Suicidal Ideations Vital Signs Height 5 ft 4 in Weight: 176 lb 6.4 oz Weight in Pounds 176.4 lbs Pulse Ox 94 - Physical Exam General: Alert, Oriented x3, No apparent distress HEENT: Atraumatic, Normocephalic, - - wears glasses Oropharynx:: Negative for: Dry mucosa, Ulcerated lesions Neck:: Supple, Trachea midline. Negative for: JVD, bilateral Cardiac:: Regular rate, Regular rhythm, Normal S1, Normal S2. Negative for: Murmur Lungs: Wheezes - faint expiratory throughout, Excusion symmetrical. Negative for: Rhonchi Abdomen:: Bowel sounds x 4, Soft, Non-tender, Non-distended. Negative for: Hepatosplenomegaly Extremities:: Negative for: Cyanosis, Edema Neurological: Neuro grossly intact Skin:: - - port left upper chest accessed with gripper covered with DSD. Negative for: Lesions, Rash, Petechiae, Ecchymosis Psychiatric:: Appropriate affect, Euthymic Lymphatics:: Negative for: Cervical lymphadenopathy, Supraclavicular lymphadenopathy, Axillary lymphadenopathy Laboratory Data: Laboratory Tests WBC 7.6 (4.4-11.0) K/mm3 RBC 3.03 L (4.2-5.4) M/mm3 Hgb 10.0 L (12.0-15.0) g/dl Hct 29.9 L (37-47) % MCV 98.7 (81-99) fL Assessment and Plan 1. Stage IIB(cT2 cN1 M0), invasive ductal carcinoma UO quadrant right breast, ER/NM positive, Her2 3+ positive by IHC- MUGA shows 59%. Began neoadjuvant Taxotere/carboplatin/Perjeta/Herceptin on 11/10/17. Overall, has tolerated treatment and Neulasta well with c/o N/V/D controlled with Zofran and Imodium and moderate to severe fatigue now improved. CBC reviewed and values are consistent with expectations during [facility]I. Echocardiogram scheduled for later this afternoon. RTC 01/12/18 for consideration of cycle 4 TC and to review results of echocardiogram. Eloise New, MSN, TRANSITION COACH, AOCNP Medications: Prescriptions This Visit Medication Instructions Recorded Primary Care Provider: Lesley Asher Referring Provider: Ignacio Hoyt MD - Problem List (1) Breast cancer, right breast Status: Chronic Qualifiers: Breast location: upper outer quadrant of breast Estrogen receptor status: positive Patient sex: female Qualified Code(s): C50.411 - Malignant neoplasm of upper-outer quadrant of right female breast; Z17.0 - Estrogen receptor positive status [ER+] (2) Encounter for monitoring cardiotoxic drug therapy Status: Acute 01/06/18 7447 <Electronically signed by Eloise New BASIC ACOUSTIC ANALYST-C> Date Eloise Shaq BASIC ACOUSTIC ANALYST-C Cosigner Signature: Date (if applicable) CC: CBC W/DIFF, AUTOMATED Collected: 01/06/2018 Status: F Source: [facility] 12:32 PM [facility] REPOSITORY Order Comment: Reason for Laboratory Test , TYPE CODE TESTS RESULT OUT OF RANGE REFERENCE UNITS LAB L100.1000 4.4-11.0 K/mm3 Normal WBC 7.6 LAB L100.1200 4.2-5.4 M/mm3 Low RBC 3.03 LAB L100.1300 12.0-15.0 g/dl Low HGB 10.0 LAB L100.1400 37-47 % Low HCT 29.9 LAB L100.1500 81-99 fL Normal MCV 98.7 LAB L100.1600 27.0-32.0 pg High MCH 33.0 LAB L100.1700 32-36 g/gl Normal MCHC 33.4 LAB L100.1810 11.6-14.6 % High RDW CV 16.8 LAB L100.1820 35.1-43.9 fl High RDW SD 53.5 LAB L100.1900 150-450 K/mm3 Low PLT 115 LAB L100.2000 6.2-12.0 fl Normal MPV 9.6 LAB L100.2100 47-70 % High NEUT% 77.9 LAB L100.2200 19-41 % Low LY% 13.9 LAB L100.2300 0-10 % Normal MONO% 7.5 LAB L100.2400 0-5 % Normal EO% 0.1 LAB L100.2500 0-1 % Normal BASO% 0.1 LAB L100.2550 0.0-0.9 % Normal IM GRAN % 0.500 Result Comment: IG% - Immature Granulocytes (promyelocytes, myelocytes and metamyelocytes) > 1% indicates that a LEFT SHIFT is Present. LAB L100.2620 2.0-7.7 X10 3/uL Normal Absolute Neut 5.9 LAB L100.2720 0.83-4.51 X10 3/ul Normal Absolute Lymph 1.05 Performed By: #### L100.0100, L500.4050, L501.5200 #### [facility] [address] [place], [address] COMPREHENSIVE METABOLIC Collected: 01/06/2018 Status: F Source: [facility] 12:32 PM [facility] REPOSITORY Order Comment: Reason for Laboratory Test . TYPE CODE TESTS RESULT OUT OF RANGE REFERENCE UNITS LAB L501.0100 74-106 mg/dL Normal GLU 96 Result Comment: Please note revised GLUCOSE reference range effective 2017. LAB L501.1000 7-18 mg/dL Normal BUN 11 LAB L501.1100 0.55-1.02 mg/dL Low CREAT,SERUM 0.50 Result Comment: The validity of the calculated GFR AND GFRAA in patients over 70 years has not been determined. Clinical correlation is essential. LAB L501.1110 >60 mL/min Normal EST GFR 128 Result Comment: Non- GFR Calc LAB L501.1115 >60 mL/min Normal EST GFR - AA 155 Result Comment: GFR Calc LAB L501.1255 ml/min Normal Estimated CRCL 45.20 LAB L501.1300 10-20 RATIO High BUN/CRE 21.8 LAB L501.1500 6.4-8. g/dL Normal 2 T PROT 6.9 LAB L501.1800 3.2-5. g/dL Low 0 ALB 3.1 LAB L501.1950 2.2-4. g/dL Normal 2 GLOB 3.8 LAB L501.2000 0.9-2. RATIO Low 4 A/G 0.8 LAB L501.2200 8.5-10 mg/dL Low .1 CA 8.4 LAB L501.4100 15-37 U/L Normal AST 22 LAB L501.4305 45-117 U/L High ALK P 158 LAB L501.4405 13-56 U/L Normal ALT 46 LAB L501.4600 0.20-1 mg/dL Normal .00 T BILI 0.50 LAB L501.5300 136-14 mmol/L Normal 5 NA 140 LAB L501.5600 3.5-5. mmol/L Normal 1 K 3.6 LAB L501.5900 98-107 mmol/L Normal CL 104 LAB L501.6100 21.0-3 mmol/L Normal 2.0 CO2 31.0 LAB L501.6200 5-15 Normal GAP 5 Performed By: #### L100.0100, L500.4050, L501.5200 #### [facility] [address] [place], [address] MAGNESIUM Collected: 01/06/2018 Status: F Source: [facility] 12:32 PM [facility] REPOSITORY Order Comment: Reason for Laboratory Test . TYPE CODE TESTS RESULT OUT OF RANGE REFERENCE UNITS LAB L501.5200 1.6-2.6 mg/dL Normal MG 2.0 Performed By: #### L100.0100, L500.4050, L501.5200 #### [facility] [address] [place], [address] ONCOLOGY VISIT REPORT Observed: 12/22/2017 Status: F Source: [facility] 12:24 PM [facility] REPOSITORY [facility] [place] [address] OFFICE VISIT Date of Service: 12/22/17 0850 MR#: [id number] Acct: [id number] Name: NURYS DIAZ Iveth Rep #: [id number] : 1945 From: Eloise ALY Age/Sex: 71/F Location: ONC Status: Signed Subjective - Date of Service Date of Service:: 12/22/17 - Chief Complaint Cycle 3 TCH+P - History of Present Illness 71-year-old woman noticed a right breast mass in July 2017, ultrasound/mammogram on 08/13/2017 showed irregular spiculated solid mass at 9 o'clock position measuring 2.5 cm in addition to enlarged lymph nodes in the axilla. She had right breast and axillary lymph node biopsy on August 27, 2017 which showed right breast invasive ductal carcinoma, and metastatic disease in Right Axillary lymph node, ER/NM positive, HER-2 3+ positive. She was seen at [facility] by Dr. Jimenez, declined chemotherapy. CT chest/abdomen/pelvis showed right breast nodules with multiple right axillary lymph nodes, no murmurs pulmonary nodules, atherosclerotic disease with coronary calcifications, pulmonary hypertension, and emphysematous changes. There was no evidence of metastatic disease in abdomen or pelvis. She had CT-guided needle biopsy of lung nodule on 09/25/2017, Pathology showed pulmonary Langerhans cell histiocytosis. She had a change of heart and now willing to consider neoadjuvant chemotherapy with Her2 targeted therapy and has elected to do it in [facility]. Port placed 10/28/[address] English and MUGA scan obtained 10/24/2017 showed EF 59%. She started therapy with TCH+P on 11/10/2017. - Interval History The patient is presenting to clinic accompanied by son, Seamus for evaluation anticipating she will receive cycle 3 P-TCH. States she has felt like myself. Admits that she inadvertently took her prn antiemetics yesterday BID instead of dexamethasone as advised. Did take dex this am. LBM 12/22/17. Appetite good, PO fluid intake likely adequate. Denies headaches, CP, palpitations, N/V, abd pain and swelling/pain of her extremities. Exertional dyspnea and chronic cough unchanged from baseline. - Past Medical/Social History Past Medical History Cancer: Breast cancer Social History Social History: No changes Smoking Status Current every day smoker Review of Systems Constitutional:: Reports: Fatigue - mild to moderate depends on day of cycle. Denies: Fever, Sweats, Weight loss, Appetite change, Chills Cardiovascular:: Reports: Dyspnea on exertion. Denies: Chest pain, Palpitations, Orthopnea, PND, Shortness of breath Respiratory: Reports: Cough, Shortness of Breath. Denies: Hemoptysis, Wheezing Gastrointestinal:: Denies: Abdominal pain, Nausea, Vomiting, Diarrhea, Constipation, Melena, Hematochezia Genitourinary: Denies: Dysuria, Hematuria, Urinary frequency, Flank pain Musculoskeletal:: Denies: Back pain, Myalgia, Arthralgia Skin: Denies: Rash, Skin Changes, Wounds Neurological:: Denies: Headache, Dizziness, Numbness, Tingling, Visual changes, Tinnitus, Hearing loss Psychiatric: Denies: Anxiety, Depression, Homicidal Ideations, Suicidal Ideations Vital Signs Height 5 ft 4 in Weight: 179 lb 9.6 oz Weight in Pounds 179.6 lbs Pulse Ox 94 - Physical Exam General: Alert, Oriented x3, No apparent distress HEENT: Atraumatic, Normocephalic, - - wears glasses Oropharynx:: Negative for: Dry mucosa, Ulcerated lesions Neck:: Supple, Trachea midline. Negative for: JVD, bilateral Cardiac:: Regular rate, Regular rhythm, Normal S1, Normal S2. Negative for: Murmur Lungs: Normal air movement, Wheezes - faint expiratory throughout, Excusion symmetrical. Negative for: Rhonchi, Increased respiratory effort Abdomen:: Bowel sounds x 4, Soft, Non-tender, Non-distended. Negative for: Hepatosplenomegaly Extremities:: Negative for: Cyanosis, Edema Neurological: Neuro grossly intact Skin:: - - port left upper chest accessed with gripper covered with DSD. Negative for: Lesions, Rash, Petechiae, Ecchymosis Psychiatric:: Appropriate affect, Euthymic Lymphatics:: Negative for: Cervical lymphadenopathy, Supraclavicular lymphadenopathy, Axillary lymphadenopathy Breast:: - - deferred Laboratory Data: Laboratory Tests WBC 9.1 (4.4-11.0) K/mm3 RBC 3.45 L (4.2-5.4) M/mm3 Assessment and Plan 1. Stage IIB(cT2 cN1 M0), invasive ductal carcinoma UO quadrant right breast, ER/NM positive, Her2 3+ positive by IHC- MUGA shows 59%. Began neoadjuvant Taxotere/carboplatin/Perjeta/Herceptin on 11/10/17. Overall, has tolerated treatment and Neulasta well with c/o N/V/D controlled with Zofran and Imodium and moderate to severe fatigue now improved. CBC reviewed and values are within acceptable parameters for treatment. She is otherwise not endorsing any s/sx of toxicity contraindicating chemotherapy. Thus, will proceed with planned cycle 3 TCH+P. Due for echocardiogram subsequent to today's infusion. RTC 01/05/18 for cycle 3 toxicity assessment and to review results of Echo. Eloise New, MSN, TRANSITION COACH, AOCNP Medications: Prescriptions This Visit Medication Instructions Recorded Medications Added to Medication List This Visit 0.9% Normal Saline Med 12/22/17 00:00 Ordered 250 ml IV UD PRN 0.9% Saline Lock Med 12/22/17 00:00 Ordered Primary Care Provider: Lesley Asher Referring Provider: Ignacio Prah, MD - Problem List (1) Breast cancer, right breast Status: Chronic Qualifiers: Breast location: upper outer quadrant of breast Estrogen receptor status: positive Patient sex: female Qualified Code(s): C50.411 - Malignant neoplasm of upper-outer quadrant of right female breast; Z17.0 - Estrogen receptor positive status [ER+] (2) Chemotherapy-induced nausea Status: Acute (3) Encounter for monitoring cardiotoxic drug therapy Status: Acute 12/22/17 1224 <Electronically signed by Eloise ALY> Date Eloise New NP-C Cosigner Signature: Date (if applicable) CC: CBC W/DIFF, AUTOMATED Collected: 12/22/2017 Status: F Source: [facility]E 8:10 AM [facility] REPOSITORY TYPE CODE TESTS RESULT OUT OF RANGE REFERENCE UNITS LAB L100.1000 4.4-11.0 K/mm3 Normal WBC 9.1 LAB L100.1200 4.2-5.4 M/mm3 Low RBC 3.45 LAB L100.1300 12.0-15.0 g/dl Low HGB 10.8 LAB L100.1400 37-47 % Low HCT 33.6 LAB L100.1500 81-99 fL Normal MCV 97.4 LAB L100.1600 27.0-32.0 pg Normal MCH 31.3 LAB L100.1700 32-36 g/gl Normal MCHC 32.1 LAB L100.1810 11.6-14.6 % High RDW CV 15.7 LAB L100.1820 35.1-43.9 fl High RDW SD 54.5 LAB L100.1900 150-450 K/mm3 Normal PLT 278 LAB L100.2000 6.2-12.0 fl Normal MPV 9.1 LAB L100.2100 47-70 % High NEUT% 89.6 LAB L100.2200 19-41 % Low LY% 5.3 LAB L100.2300 0-10 % Normal MONO% 4.3 LAB L100.2400 0-5 % Normal EO% 0.2 LAB L100.2500 0-1 % Normal BASO% 0.2 LAB L100.2550 0.0-0.9 % Normal IM GRAN % 0.400 Result Comment: IG% - Immature Granulocytes (promyelocytes, myelocytes and metamyelocytes) > 1% indicates that a LEFT SHIFT is Present. LAB L100.2620 2.0-7.7 X10 3/uL High Absolute Neut 8.1 LAB L100.2720 0.83-4.51 X10 3/ul Low Absolute Lymph 0.48 LAB L100.4500 Normal SMEAR COMMENT COMMENT Result Comment: SLIDE SCANNED - LYMPHOPENIA NOTED. Performed By: #### L100.0100 #### [facility] [address] [place], [address] COMPREHENSIVE METABOLIC Collected: 12/22/2017 Status: F Source: [facility] 8:10 AM [facility] REPOSITORY Order Comment: Reason for Laboratory Test Chemotherapy TYPE CODE TESTS RESULT OUT OF RANGE REFERENCE UNITS LAB L501.0100 74-106 mg/dL High GLU 164 Result Comment: Fasting Glucose result greater than or equal to 126 mg/dL suggests DIABETES MELLITUS per A.D.A. criteria. Please note revised GLUCOSE reference range effective 2017. LAB L501.1000 7-18 mg/dL Normal BUN 7 LAB L501.1100 0.55-1.02 mg/dL Normal CREAT,SERUM 0.69 Result Comment: The validity of the calculated GFR AND GFRAA in patients over 70 years has not been determined. Clinical correlation is essential. LAB L501.1110 >60 mL/min Normal EST GFR 89 Result Comment: Non- GFR Calc LAB L501.1115 >60 mL/min Normal EST GFR - AA 108 Result Comment: GFR Calc LAB L501.1255 ml/min Normal Estimated CRCL 45.85 LAB L501.1300 10-20 RATIO Normal BUN/CRE 10.1 LAB L501.1500 6.4-8. g/dL Normal 2 T PROT 6.9 LAB L501.1800 3.2-5. g/dL Low 0 ALB 3.1 LAB L501.1950 2.2-4. g/dL Normal 2 GLOB 3.8 LAB L501.2000 0.9-2. RATIO Low 4 A/G 0.8 LAB L501.2200 8.5-10 mg/dL Low .1 CA 8.4 LAB L501.4100 15-37 U/L Low AST 13 LAB L501.4305 45-117 U/L High ALK P 132 LAB L501.4405 13-56 U/L Normal ALT 26 LAB L501.4600 0.20-1 mg/dL Normal .00 T BILI 0.20 LAB L501.5300 136-14 mmol/L Normal 5 NA 138 LAB L501.5600 3.5-5. mmol/L Normal 1 K 4.0 LAB L501.5900 98-107 mmol/L Normal CL 102 LAB L501.6100 21.0-3 mmol/L Normal 2.0 CO2 31.0 LAB L501.6200 5-15 Normal GAP 5 Performed By: #### L500.4050, L501.5200 #### [facility] [address] [place], [address] MAGNESIUM Collected: 12/22/2017 Status: F Source: [facility] 8:10 AM [facility] REPOSITORY Order Comment: Reason for Laboratory Test Chemotherapy TYPE CODE TESTS RESULT OUT OF RANGE REFERENCE UNITS LAB L501.5200 1.6-2.6 mg/dL Normal MG 2.2 Performed By: #### L500.4050, L501.5200 #### [facility] [address] [place], [address] ONCOLOGY VISIT REPORT Observed: 12/15/2017 Status: F Source: [facility] 11:14 AM [facility] REPOSITORY [facility] [address] [place] [address] OFFICE VISIT Date of Service: 12/15/17 1050 MR#: [id number] Acct: [id number] Name: NURYS DIAZ Rep #: [id number] : 1945 From: Eloise ALY Age/Sex: 71/F Location: ONC Status: Signed Subjective - Date of Service Date of Service:: 12/15/17 - Chief Complaint Cycle 2 P-TCH Toxicity Assessment - History of Present Illness 71-year-old woman noticed a right breast mass in July 2017, ultrasound/mammogram on 08/13/2017 showed irregular spiculated solid mass at 9 o'clock position measuring 2.5 cm in addition to enlarged lymph nodes in the axilla. She had right breast and axillary lymph node biopsy on August 27, 2017 which showed right breast invasive ductal carcinoma, and metastatic disease in Right Axillary lymph node, ER/NM positive, HER-2 3+ positive. She was seen at [facility] by Dr. Jimenez, declined chemotherapy. CT chest/abdomen/pelvis showed right breast nodules with multiple right axillary lymph nodes, no murmurs pulmonary nodules, atherosclerotic disease with coronary calcifications, pulmonary hypertension, and emphysematous changes. There was no evidence of metastatic disease in abdomen or pelvis. She had CT-guided needle biopsy of lung nodule on 09/25/2017, Pathology showed pulmonary Langerhans cell histiocytosis. She had a change of heart and now willing to consider neoadjuvant chemotherapy with Her2 targeted therapy and has elected to do it in [facility]. Port placed 10/28/[address] English and MUGA scan obtained 10/24/2017 showed EF 59%. She started therapy with P-TCH on 11/10/2017. - Interval History The patient is presenting to clinic for toxicity assessment. Received cycle 2 P-TCH on 12/01/17. C/o nausea and fatigue. Describes fatigue as moderate- severe notably 2nd week of cycle. Modest improvement today. Reports 1 episode of diarrhea this morning, well controlled with Imodium. No bloody/mucous-like stools. Nausea intermittent, well controlled with prn antiemetics. Chronic cough and exertional dyspnea continue, continues to smoke 1/2 ppd. Appetite good, PO fluid intake likely inadequate. - Past Medical/Social History Past Medical History Cancer: Breast cancer Social History Social History: No changes Smoking Status Current every day smoker Review of Systems Constitutional:: Reports: Fatigue, Weight loss. Denies: Fever, Sweats, Appetite change, Chills Cardiovascular:: Reports: Dyspnea on exertion. Denies: Chest pain, Palpitations, Orthopnea, PND, Shortness of breath Respiratory: Reports: Cough, Shortness of breath upon exertion. Denies: Hemoptysis, Wheezing Gastrointestinal:: Reports: Nausea, Diarrhea. Denies: Abdominal pain, Vomiting, Constipation, Hematochezia Genitourinary: Denies: Dysuria, Hematuria, Urinary frequency, Abnormal vaginal bleeding, Flank pain Musculoskeletal:: Reports: Arthralgia. Denies: Myalgia Skin: Denies: Rash, Skin Changes, Wounds Neurological:: Denies: Headache, Dizziness, Numbness, Tingling, Visual changes, Tinnitus, Hearing loss Psychiatric: Denies: Anxiety, Depression, Homicidal Ideations, Suicidal Ideations Vital Signs Height 5 ft 4 in Weight: 178 lb 3.2 oz Weight in Pounds 178.2 lbs Pulse Ox 94 - Physical Exam General: Alert, Oriented x3, No apparent distress HEENT: Atraumatic, Normocephalic, - - wears glasses Oropharynx:: Negative for: Dry mucosa, Ulcerated lesions Neck:: Supple, Trachea midline. Negative for: JVD, bilateral Cardiac:: Regular rate, Regular rhythm, Normal S1, Normal S2. Negative for: Murmur Lungs: Clear to auscultation, Excusion symmetrical. Negative for: Rhonchi, Wheezes, Increased respiratory effort Abdomen:: Bowel sounds x 4, Soft, Non-tender, Non-distended. Negative for: Hepatosplenomegaly Extremities:: Negative for: Cyanosis, Edema Neurological: Neuro grossly intact Skin:: Negative for: Lesions, Rash, Petechiae, Ecchymosis Psychiatric:: Appropriate affect, Euthymic Lymphatics:: Negative for: Cervical lymphadenopathy, Supraclavicular lymphadenopathy, Axillary lymphadenopathy Laboratory Data: Laboratory Tests WBC 12.8 H (4.4-11.0) K/mm3 RBC 3.57 L (4.2-5.4) M/mm3 Hgb 11.1 L (12.0-15.0) g/dl Hct 33.9 L (37-47) % Assessment and Plan 1. Stage IIB(cT2 cN1 M0), invasive ductal carcinoma UO quadrant right breast, ER/NM positive, Her2 3+ positive by IHC- MUGA shows 59%. Began neoadjuvant Taxotere/carboplatin/Perjeta/Herceptin on 11/10/17. Overall, tolerated treatment and Neulasta well with c/o N/V/D on days 5-7 controlled with Zofran and Imodium and moderate to severe fatigue now improved. CBC reviewed and values are within parameters expected during GOPI. Objectively, she has lost 5 lbs in the last 2 weeks. Offered IV hydration today, patient declined. RTC 12/22/17 for consideration of cycle 3 TCH+P, sooner if issues arise. Echo due subsequent to cycle 3. Eloise New, MSN, TRANSITION COACH, AOCNP Medications: Prescriptions This Visit Medication Instructions Recorded Primary Care Provider: Lesley Asher Referring Provider: Ignacio Hoyt MD - Problem List (1) Breast cancer, right breast Status: Chronic Qualifiers: Breast location: upper outer quadrant of breast Estrogen receptor status: positive Patient sex: female Qualified Code(s): C50.411 - Malignant neoplasm of upper-outer quadrant of right female breast; Z17.0 - Estrogen receptor positive status [ER+] (2) Chemotherapy-induced nausea Status: Acute (3) Encounter for monitoring cardiotoxic drug therapy Status: Acute 12/15/17 1114 <Electronically signed by Eloise New BASIC ACOUSTIC ANALYST-C> Date Eloise New BASIC ACOUSTIC ANALYST-C Cosigner Signature: Date (if applicable) CC: CBC W/DIFF, AUTOMATED Collected: 12/15/2017 Status: F Source: [facility] 10:27 AM [facility] REPOSITORY TYPE CODE TESTS RESULT OUT OF RANGE REFERENCE UNITS LAB L100.1000 4.4-11.0 K/mm3 High WBC 12.8 LAB L100.1200 4.2-5.4 M/mm3 Low RBC 3.57 LAB L100.1300 12.0-15.0 g/dl Low HGB 11.1 LAB L100.1400 37-47 % Low HCT 33.9 LAB L100.1500 81-99 fL Normal MCV 95.0 LAB L100.1600 27.0-32.0 pg Normal MCH 31.1 LAB L100.1700 32-36 g/gl Normal MCHC 32.7 LAB L100.1810 11.6-14.6 % High RDW CV 14.7 LAB L100.1820 35.1-43.9 fl High RDW SD 49.8 LAB L100.1900 150-450 K/mm3 Low PLT 123 LAB L100.2000 6.2-12.0 fl Normal MPV 10.1 LAB L100.2100 47-70 % High NEUT% 87.6 LAB L100.2200 19-41 % Low LY% 6.2 LAB L100.2300 0-10 % Normal MONO% 5.5 LAB L100.2400 0-5 % Normal EO% 0.0 LAB L100.2500 0-1 % Normal BASO% 0.2 LAB L100.2550 0.0-0.9 % Normal IM GRAN % 0.500 Result Comment: IG% - Immature Granulocytes (promyelocytes, myelocytes and metamyelocytes) > 1% indicates that a LEFT SHIFT is Present. LAB L100.2620 2.0-7.7 X10 3/uL High Absolute Neut 11.2 LAB L100.2720 0.83-4.51 X10 3/ul Low Absolute Lymph 0.80 Performed By: #### L100.0100 #### [facility] [address] [place], [place], [address] COMPREHENSIVE METABOLIC Collected: 12/15/2017 Status: F Source: [facility] 10:27 AM [facility] REPOSITORY TYPE CODE TESTS RESULT OUT OF RANGE REFERENCE UNITS LAB L501.0100 74-106 mg/dL High GLU 140 Result Comment: Fasting Glucose result greater than or equal to 126 mg/dL suggests DIABETES MELLITUS per A.D.A. criteria. Please note revised GLUCOSE reference range effective 2017. LAB L501.1000 7-18 mg/dL Normal BUN 11 LAB L501.1100 0.55-1.02 mg/dL Normal CREAT,SERUM 0.64 Result Comment: The validity of the calculated GFR AND GFRAA in patients over 70 years has not been determined. Clinical correlation is essential. LAB L501.1110 >60 mL/min Normal EST GFR 97 Result Comment: Non- GFR Calc LAB L501.1115 >60 mL/min Normal EST GFR - AA 117 Result Comment: GFR Calc LAB L501.1255 ml/min Normal Estimated CRCL 45.85 LAB L501.1300 10-20 RATIO Normal BUN/CRE 17.1 LAB L501.1500 6.4-8. g/dL Normal 2 T PROT 7.2 LAB L501.1800 3.2-5. g/dL Low 0 ALB 3.1 LAB L501.1950 2.2-4. g/dL Normal 2 GLOB 4.1 LAB L501.2000 0.9-2. RATIO Low 4 A/G 0.8 LAB L501.2200 8.5-10 mg/dL Normal .1 CA 8.6 LAB L501.4100 15-37 U/L Low AST 14 LAB L501.4305 45-117 U/L High ALK P 182 LAB L501.4405 13-56 U/L Normal ALT 36 LAB L501.4600 0.20-1 mg/dL Normal .00 T BILI 0.80 LAB L501.5300 136-14 mmol/L Normal 5 NA 138 LAB L501.5600 3.5-5. mmol/L Normal 1 K 3.5 LAB L501.5900 98-107 mmol/L Normal CL 101 LAB L501.6100 21.0-3 mmol/L Normal 2.0 CO2 31.0 LAB L501.6200 5-15 Normal GAP 6 Performed By: #### L500.4050 #### [facility] [facility] [place], [address] ONCOLOGY VISIT REPORT Observed: 12/01/2017 Status: F Source: [facility] 2:38 PM [facility] REPOSITORY [facility] [address] [place] [address] OFFICE VISIT Date of Service: 12/01/17 0955 MR#: [id number] Acct: [id number] Name: KORYMITZY DELUCAELMER Lazaro Rep #: [id number] : 1945 From: Ignacio Hoyt MD Age/Sex: 71/F Location: ONC Status: Signed Subjective - Date of Service Date of Service:: 12/01/17 - Chief Complaint F/u for chemotherapy. - History of Present Illness 71-year-old woman noticed a right breast mass in July 2017, ultrasound/mammogram on 08/13/2017 showed irregular spiculated solid mass at 9 o'clock position measuring 2.5 cm in addition to enlarged lymph nodes in the axilla. She had right breast and axillary lymph node biopsy on August 27, 2017 which showed right breast invasive ductal carcinoma, and metastatic disease in Right Axillary lymph node, ER/NM positive, HER-2 3+ positive. She was seen at [facility] by Dr. Jimenez, declined chemotherapy. CT chest/abdomen/pelvis showed right breast nodules with multiple right axillary lymph nodes, no murmurs pulmonary nodules, atherosclerotic disease with coronary calcifications, pulmonary hypertension, and emphysematous changes. There was no evidence of metastatic disease in abdomen or pelvis. She had CT-guided needle biopsy of lung nodule on 09/25/2017, Pathology showed pulmonary Langerhans cell histiocytosis. She had a change of heart and now willing to consider neoadjuvant chemotherapy with Her2 targeted therapy and has elected to do it in [facility]. Port placed 10/28/[address] English and MUGA scan obtained 10/24/2017 showed EF 59%. She started therapy with P-TCH on 11/10/2017, now due for 2nd cycle. She feels well. She had nausea which was controlled with Zofran, Diarrhea which was controlled with Imodium. - Past Medical/Social History Past Medical History Cancer: Breast cancer Social History Social History: No changes Smoking Status Current every day smoker Review of Systems Constitutional:: Denies: Fever, Sweats, Weight loss, Appetite change, Chills Cardiovascular:: Denies: Chest pain, Palpitations, Dyspnea on exertion, Orthopnea, PND, Shortness of breath Respiratory: Denies: Cough, Hemoptysis, Shortness of Breath, Wheezing Gastrointestinal:: Denies: Abdominal pain, Nausea, Vomiting, Diarrhea, Constipation, Hematochezia Genitourinary: Denies: Dysuria, Hematuria, 15, Flank pain Musculoskeletal:: Denies: Back pain, Myalgia, Arthralgia Skin: Denies: Rash, Skin Changes, Wounds Neurological:: Denies: Headache, Dizziness, Visual changes, Tinnitus, Hearing loss Psychiatric: Denies: Anxiety, Depression, Homicidal Ideations, Suicidal Ideations Vital Signs Height 5 ft 4 in Weight: 83.007 kg Weight in Pounds 183.0 lbs Pulse Ox 96 - Physical Exam General: Alert, Oriented x3, No apparent distress, - - Port L IC HEENT: Atraumatic, PERRLA, EOMI, Normocephalic Oropharynx:: Dry mucosa Neck:: Supple, Trachea midline. Negative for: JVD, bilateral Cardiac:: Regular rate, Regular rhythm, Normal S1, Normal S2. Negative for: Murmur Lungs: Clear to auscultation, Excusion symmetrical. Negative for: Rhonchi, Wheezes Abdomen:: Bowel sounds x 4, Soft, Non-tender, Non-distended. Negative for: Hepatosplenomegaly Extremities:: Negative for: Cyanosis, Edema Neurological: Neuro grossly intact Skin:: Negative for: Lesions, Rash, Petechiae, Ecchymosis Psychiatric:: Appropriate affect, Euthymic Lymphatics:: Negative for: Cervical lymphadenopathy, Supraclavicular lymphadenopathy, Axillary lymphadenopathy Breast:: - - No mass in the R breast or axilla. L breast normal. Laboratory Data: Laboratory Tests WBC 17.2 H (4.4-11.0) K/mm3 RBC 3.91 L (4.2-5.4) M/mm3 Hgb 12.2 (12.0-15.0) g/dl Assessment and Plan Right breast cancer stage IIB(cT2 cN1 M0), UO quadrant, ER/NM positive, Her2 3+ positive by IHC on P-TCH Pulmonary Histocytosis. EF 59%. S/P Port placement. Plan is to proceed with Cycle 2 of P-TCH. RTC 2 wks with CBC,CMP for toxicity check. Medications: Prescriptions This Visit Medication Instructions Recorded Primary Care Provider: Lesley Asher Referring Provider: Ignacio Hoyt MD - Problem List (1) Breast cancer, right breast Status: Chronic Qualifiers: Breast location: upper outer quadrant of breast Estrogen receptor status: positive Patient sex: female Qualified Code(s): C50.411 - Malignant neoplasm of upper-outer quadrant of right female breast; Z17.0 - Estrogen receptor positive status [ER+] Code Visit Office Visits / Consults: [id number] OV L5 Est 12/01/17 1438 <Electronically signed by Ignacio Hoyt MD> Date Ignacio Hoyt MD Cosigner Signature: Date (if applicable) CC: CBC W/DIFF, AUTOMATED Collected: 12/01/2017 Status: F Source: MAE 8:40 AM [facility] REPOSITORY Order Comment: Reason for Laboratory Test . TYPE CODE TESTS RESULT OUT OF RANGE REFERENCE UNITS LAB L100.1000 4.4-11.0 K/mm3 High WBC 17.2 LAB L100.1200 4.2-5.4 M/mm3 Low RBC 3.91 LAB L100.1300 12.0-15.0 g/dl Normal HGB 12.2 LAB L100.1400 37-47 % Normal HCT 37.4 LAB L100.1500 81-99 fL Normal MCV 95.7 LAB L100.1600 27.0-32.0 pg Normal MCH 31.2 LAB L100.1700 32-36 g/gl Normal MCHC 32.6 LAB L100.1810 11.6-14.6 % Normal RDW CV 14.4 LAB L100.1820 35.1-43.9 fl High RDW SD 50.1 LAB L100.1900 150-450 K/mm3 Normal PLT 409 LAB L100.2000 6.2-12.0 fl Normal MPV 9.1 LAB L100.2100 47-70 % High NEUT% 88.7 LAB L100.2200 19-41 % Low LY% 9.5 LAB L100.2300 0-10 % Normal MONO% 1.2 LAB L100.2400 0-5 % Normal EO% 0.0 LAB L100.2500 0-1 % Normal BASO% 0.1 LAB L100.2550 0.0-0.9 % Normal IM GRAN % 0.500 Result Comment: IG% - Immature Granulocytes (promyelocytes, myelocytes and metamyelocytes) > 1% indicates that a LEFT SHIFT is Present. LAB L100.2620 2.0-7.7 X10 3/uL High Absolute Neut 15.2 LAB L100.2720 0.83-4.51 X10 3/ul Normal Absolute Lymph 1.63 Performed By: #### L100.0100, L500.4050, L501.5200 #### [facility] [place], [address] COMPREHENSIVE METABOLIC Collected: 12/01/2017 Status: F Source: MAE PROFIL 8:40 AM [facility] REPOSITORY Order Comment: PLEASE ADD THE MG ON TO C127 FROM THIS MORNING TYPE CODE TESTS RESULT OUT OF RANGE REFERENCE UNITS LAB L501.0100 74-106 mg/dL High GLU 111 Result Comment: Fasting Glucose result from 100 to 125 mg/dL suggests IMPAIRED HOMEOSTASIS per A.D.A. criteria. Please note revised GLUCOSE reference range effective 2017. LAB L501.1000 7-18 mg/dL Normal BUN 11 LAB L501.1100 0.55-1.02 mg/dL Normal CREAT,SERUM 0.71 Result Comment: The validity of the calculated GFR AND GFRAA in patients over 70 years has not been determined. Clinical correlation is essential. LAB L501.1110 >60 mL/min Normal EST GFR 87 Result Comment: Non- GFR Calc LAB L501.1115 >60 mL/min Normal EST GFR - AA 105 Result Comment: GFR Calc LAB L501.1255 ml/min Normal Estimated CRCL 45.85 LAB L501.1300 10-20 RATIO Normal BUN/CRE 15.5 LAB L501.1500 6.4-8. g/dL Normal 2 T PROT 7.4 LAB L501.1800 3.2-5. g/dL Normal 0 ALB 3.2 LAB L501.1950 2.2-4. g/dL Normal 2 GLOB 4.2 LAB L501.2000 0.9-2. RATIO Low 4 A/G 0.8 LAB L501.2200 8.5-10 mg/dL Normal .1 CA 9.1 LAB L501.4100 15-37 U/L Low AST 10 LAB L501.4305 45-117 U/L High ALK P 142 LAB L501.4405 13-56 U/L Normal ALT 27 LAB L501.4600 0.20-1 mg/dL Normal .00 T BILI 0.20 LAB L501.5300 136-14 mmol/L Normal 5 NA 139 LAB L501.5600 3.5-5. mmol/L Normal 1 K 5.0 LAB L501.5900 98-107 mmol/L Normal CL 103 LAB L501.6100 21.0-3 mmol/L Normal 2.0 CO2 30.0 LAB L501.6200 5-15 Normal GAP 6 Performed By: #### L100.0100, L500.4050, L501.5200 #### [facility] [address] [place], [address] MAGNESIUM Collected: 12/01/2017 Status: F Source: DODGE 8:40 AM [facility] REPOSITORY Order Comment: PLEASE ADD THE MG ON TO C127 FROM THIS MORNING TYPE CODE TESTS RESULT OUT OF RANGE REFERENCE UNITS LAB L501.5200 1.6-2.6 mg/dL Normal MG 2.3 Performed By: #### L100.0100, L500.4050, L501.5200 #### [facility] [address] [place], [address] ONCOLOGY VISIT REPORT Observed: 11/24/2017 Status: F Source: DODGE 11:07 AM [facility] REPOSITORY [facility] [address] [place] [address] OFFICE VISIT Date of Service: 11/24/17 1015 MR#: [id number] Acct: [id number] Name: NURYS DIAZ Iveth Rep #: [id number] : 1945 From: Eloise ALY Age/Sex: 71/F Location: OMD Status: Signed Subjective - Date of Service Date of Service:: 11/24/17 - Chief Complaint Breast cancer management - History of Present Illness 71-year-old woman noticed a right breast mass in July 2017, ultrasound/mammogram on 08/13/2017 showed irregular spiculated solid mass at 9 o'clock position measuring 2.5 cm in addition to enlarged lymph nodes in the axilla. She had right breast and axillary lymph node biopsy on August 27, 2017 which showed right breast invasive ductal carcinoma, and metastatic disease in Right Axillary lymph node, ER/NM positive, HER-2 3+ positive. She was seen at [facility] by Dr. Jimenez, declined chemotherapy. CT chest/abdomen/pelvis showed right breast nodules with multiple right axillary lymph nodes, no murmurs pulmonary nodules, atherosclerotic disease with coronary calcifications, pulmonary hypertension, and emphysematous changes. There was no evidence of metastatic disease in abdomen or pelvis. She had CT-guided needle biopsy of lung nodule on 09/25/2017, Pathology showed pulmonary Langerhans cell histiocytosis. She had a change of heart and now willing to consider neoadjuvant chemotherapy with Her2 targeted therapy and has elected to do it in [facility]. Port placed 10/28/[address] English and MUGA scan obtained 10/24/2017 showed EF 59%. - Interval History The patient is presenting to clinic for 2 week toxicity assessement. She received cycle 1 TCH+P on 11/10/17. Reports nausea accompanied by 3 episodes of emesis on days 4-7, improved after administration of ondansetron. Experienced mild diarrhea on same days. Imodium helpful. Denies bloody, mucous-like stools. Diarrhea/nausea now resolved. Specifically, she denies headaches, dizziness, CP, palpitations, SOB, bone pain, and swelling/pain of her extremities. Confirmed she administered Decadron as advised. - Past Medical/Social History Past Medical History Cancer: Breast cancer Social History Social History: No changes Smoking Status Current every day smoker Review of Systems Constitutional:: Reports: Fatigue, Weight loss. Denies: Fever, Sweats, Appetite change, Chills Cardiovascular:: Denies: Chest pain, Palpitations, Dyspnea on exertion, Orthopnea, PND, Shortness of breath Respiratory: Reports: Cough - chronic, Wheezing - occasionally. Denies: Hemoptysis, Shortness of Breath Gastrointestinal:: Reports: Nausea - see HPI, Vomiting, Diarrhea. Denies: Abdominal pain, Constipation, Hematochezia Genitourinary: Denies: Dysuria, Hematuria, 15, Flank pain Musculoskeletal:: Denies: Back pain, Myalgia, Arthralgia Skin: Denies: Rash, Skin Changes, Wounds Neurological:: Denies: Headache, Dizziness, Numbness, Tingling, Visual changes, Tinnitus, Hearing loss Psychiatric: Denies: Anxiety, Depression, Homicidal Ideations, Suicidal Ideations Vital Signs Height 5 ft 4 in Weight: 183 lb Weight in Pounds 183.0 lbs Pulse Ox 96 - Physical Exam General: Alert, Oriented x3, No apparent distress HEENT: Atraumatic, PERRLA, EOMI, Normocephalic Oropharynx:: Negative for: Dry mucosa, Ulcerated lesions Neck:: Supple, Trachea midline. Negative for: JVD, bilateral Cardiac:: Regular rate, Regular rhythm, Normal S1, Normal S2. Negative for: Murmur Lungs: Diminished - throughout, Excusion symmetrical. Negative for: Rhonchi, Wheezes Abdomen:: Bowel sounds x 4, Soft, Non-tender, Non-distended. Negative for: Hepatosplenomegaly Extremities:: Negative for: Cyanosis, Edema Neurological: Neuro grossly intact Skin:: - - Port left upper chest accessed with gripper covered with DSD. Negative for: Lesions, Rash, Petechiae, Ecchymosis Psychiatric:: Appropriate affect, Euthymic Lymphatics:: Negative for: Cervical lymphadenopathy, Supraclavicular lymphadenopathy, Axillary lymphadenopathy Laboratory Data: Laboratory Tests WBC 13.7 H Hgb 12.0 Plt Count 166 Absolute Neuts (auto) 11.7 H Alkaline Phosphatase 228 H Assessment and Plan 1. Stage IIB(cT2 cN1 M0), invasive ductal carcinoma UO quadrant right breast, ER/NM positive, Her2 3+ positive by IHC- MUGA shows 59%. Began neoadjuvant Taxotere/carboplatin/Perjeta/Herceptin on 11/10/17. Overall, tolerated treatment and Neulasta well with c/o N/V/D on days 5-7 controlled with Zofran and Imodium. CBC reviewed and values are within parameters expected during GOPI. CMP shows elevated Alk phos. Noted to have elevated alk phos prior to commencing with cycle 1. Discussed case with primary oncologist. Per Dr. Hoyt, no bone scan, continue to monitor. Encouraged to increase PO fluids and protein. RTC 12/01/17 for consideration of cycle 2 TCH+P, sooner if issues arise. Eloise New, MSN, TRANSITION COACH, AOCNP Medications: Prescriptions This Visit Medication Instructions Recorded Primary Care Provider: Lesley Asher Referring Provider: Ignacio Hoyt MD - Problem List (1) Breast cancer, right breast Status: Chronic Qualifiers: Breast location: upper outer quadrant of breast Estrogen receptor status: positive Patient sex: female Qualified Code(s): C50.411 - Malignant neoplasm of upper-outer quadrant of right female breast; Z17.0 - Estrogen receptor positive status [ER+] 11/24/17 1107 <Electronically signed by Eloise ALY> Date Eloise New BASIC ACOUSTIC ANALYST-C Cosigner Signature: Date (if applicable) CC: CBC W/DIFF, AUTOMATED Collected: 11/24/2017 Status: F Source: MAE 9:51 AM [facility] REPOSITORY Order Comment: Reason for Laboratory Test . TYPE CODE TESTS RESULT OUT OF RANGE REFERENCE UNITS LAB L100.1000 4.4-11.0 K/mm3 High WBC 13.7 LAB L100.1200 4.2-5.4 M/mm3 Low RBC 3.79 LAB L100.1300 12.0-15.0 g/dl Normal HGB 12.0 LAB L100.1400 37-47 % Low HCT 36.0 LAB L100.1500 81-99 fL Normal MCV 95.0 LAB L100.1600 27.0-32.0 pg Normal MCH 31.7 LAB L100.1700 32-36 g/gl Normal MCHC 33.3 LAB L100.1810 11.6-14.6 % Normal RDW CV 14.2 LAB L100.1820 35.1-43.9 fl High RDW SD 49.5 LAB L100.1900 150-450 K/mm3 Normal PLT 166 LAB L100.2000 6.2-12.0 fl Normal MPV 9.5 LAB L100.2100 47-70 % High NEUT% 85.7 LAB L100.2200 19-41 % Low LY% 6.3 LAB L100.2300 0-10 % Normal MONO% 6.4 LAB L100.2400 0-5 % Normal EO% 0.1 LAB L100.2500 0-1 % Normal BASO% 0.1 LAB L100.2550 0.0-0.9 % High IM GRAN % 1.400 Result Comment: IG% - Immature Granulocytes (promyelocytes, myelocytes and metamyelocytes) > 1% indicates that a LEFT SHIFT is Present. LAB L100.2620 2.0-7.7 X10 3/uL High Absolute Neut 11.7 LAB L100.2720 0.83-4.51 X10 3/ul Normal Absolute Lymph 0.86 Performed By: #### L100.0100, L500.4050 #### [facility] [address] [place], [place], [address] COMPREHENSIVE METABOLIC Collected: 11/24/2017 Status: F Source: MAE PIZANO 9:51 AM [facility] REPOSITORY Order Comment: Reason for Laboratory Test . TYPE CODE TESTS RESULT OUT OF RANGE REFERENCE UNITS LAB L501.0100 74-106 mg/dL High GLU 108 Result Comment: Fasting Glucose result from 100 to 125 mg/dL suggests IMPAIRED HOMEOSTASIS per A.D.A. criteria. Please note revised GLUCOSE reference range effective 2017. LAB L501.1000 7-18 mg/dL Normal BUN 7 LAB L501.1100 0.55-1.02 mg/dL Normal CREAT,SERUM 0.57 Result Comment: The validity of the calculated GFR AND GFRAA in patients over 70 years has not been determined. Clinical correlation is essential. LAB L501.1110 >60 mL/min Normal EST GFR 112 Result Comment: Non- GFR Calc LAB L501.1115 >60 mL/min Normal EST GFR - AA 136 Result Comment: GFR Calc LAB L501.1255 ml/min Normal Estimated CRCL 45.85 LAB L501.1300 10-20 RATIO Normal BUN/CRE 12.3 LAB L501.1500 6.4-8. g/dL Normal 2 T PROT 6.7 LAB L501.1800 3.2-5. g/dL Low 0 ALB 2.9 LAB L501.1950 2.2-4. g/dL Normal 2 GLOB 3.8 LAB L501.2000 0.9-2. RATIO Low 4 A/G 0.8 LAB L501.2200 8.5-10 mg/dL Low .1 CA 8.2 LAB L501.4100 15-37 U/L Normal AST 17 LAB L501.4305 45-117 U/L High ALK P 228 LAB L501.4405 13-56 U/L Normal ALT 53 LAB L501.4600 0.20-1 mg/dL Normal .00 T BILI 0.70 LAB L501.5300 136-14 mmol/L Normal 5 NA 138 LAB L501.5600 3.5-5. mmol/L Normal 1 K 3.6 LAB L501.5900 98-107 mmol/L Normal CL 101 LAB L501.6100 21.0-3 mmol/L Normal 2.0 CO2 32.0 LAB L501.6200 5-15 Normal GAP 5 Performed By: #### L100.0100, L500.4050 #### [facility] [address] [place], [address] DOWNTIME REPORT Observed: 11/20/2017 Status: F Source: DODGE 12:05 PM [facility] REPOSITORY [facility] Medical Records Department [address] [place] [address] Downtime Report MR#: [id number] Acct: [id number] Name: NURYS DIAZ Rep #: [id number] : 1945 71 From: Tyler Alberto PCP: LESLEY ASHER Status: REG RCR This patient was seen during an EMR downtime November 03, 2017 - November 10, 2017. This patient may have a combination of paper and electronic documentation or all paper documentation. All documentation is viewable within the e-chart portion of [facility] for each patient visit. CBC W/DIFF, AUTOMATED Collected: 11/10/2017 Status: F Source: DODGE 8:51 AM [facility] REPOSITORY TYPE CODE TESTS RESULT OUT OF RANGE REFERENCE UNITS LAB L100.1000 4.4-11.0 K/mm3 High WBC 14.4 LAB L100.1200 4.2-5.4 M/mm3 Normal RBC 4.54 LAB L100.1300 12.0-15.0 g/dl Normal HGB 14.4 LAB L100.1400 37-47 % Normal HCT 43.3 LAB L100.1500 81-99 fL Normal MCV 95.4 LAB L100.1600 27.0-32.0 pg Normal MCH 31.7 LAB L100.1700 32-36 g/gl Normal MCHC 33.3 LAB L100.1810 11.6-14.6 % Normal RDW CV 14.6 LAB L100.1820 35.1-43.9 fl High RDW SD 51.4 LAB L100.1900 150-450 K/mm3 Normal PLT 257 LAB L100.2000 6.2-12.0 fl Normal MPV 10.0 LAB L100.2100 47-70 % High NEUT% 90.3 LAB L100.2200 19-41 % Low LY% 9.0 LAB L100.2300 0-10 % Normal MONO% 0.1 LAB L100.2400 0-5 % Normal EO% 0.0 LAB L100.2500 0-1 % Normal BASO% 0.0 LAB L100.2550 0.0-0.9 % Normal IM GRAN % 0.600 Result Comment: IG% - Immature Granulocytes (promyelocytes, myelocytes and metamyelocytes) > 1% indicates that a LEFT SHIFT is Present. LAB L100.2620 2.0-7.7 X10 3/uL High Absolute Neut 13.0 LAB L100.2720 0.83-4.51 X10 3/ul Normal Absolute Lymph 1.30 Performed By: #### L100.0100, L500.4050, L501.5200 #### [facility] [address] [place], [address] COMPREHENSIVE METABOLIC Collected: 11/10/2017 Status: F Source: [facility] 8:51 AM [facility] REPOSITORY Order Comment: Reason for Laboratory Test Chemotherapy TYPE CODE TESTS RESULT OUT OF RANGE REFERENCE UNITS LAB L501.0100 74-106 mg/dL High GLU 176 Result Comment: Fasting Glucose result greater than or equal to 126 mg/dL suggests DIABETES MELLITUS per A.D.A. criteria. Please note revised GLUCOSE reference range effective 2017. LAB L501.1000 7-18 mg/dL Normal BUN 14 LAB L501.1100 0.55-1.02 mg/dL Normal CREAT,SERUM 0.76 Result Comment: The validity of the calculated GFR AND GFRAA in patients over 70 years has not been determined. Clinical correlation is essential. LAB L501.1110 >60 mL/min Normal EST GFR 80 Result Comment: Non- GFR Calc LAB L501.1115 >60 mL/min Normal EST GFR - AA 97 Result Comment: GFR Calc LAB L501.1255 ml/min Normal Estimated CRCL 45.85 LAB L501.1300 10-20 RATIO Normal BUN/CRE 18.4 LAB L501.1500 6.4-8. g/dL Normal 2 T PROT 7.6 LAB L501.1800 3.2-5. g/dL Normal 0 ALB 3.4 LAB L501.1950 2.2-4. g/dL Normal 2 GLOB 4.2 LAB L501.2000 0.9-2. RATIO Low 4 A/G 0.8 LAB L501.2200 8.5-10 mg/dL Normal .1 CA 9.0 LAB L501.4100 15-37 U/L Low AST 14 Result Comment: Slight Hemolysis, Result may be falsely increased. LAB L501.4305 45-117 U/L High ALK P 147 LAB L501.4405 13-56 U/L Normal ALT 52 LAB L501.4600 0.20-1.00 mg/dL Normal T BILI 0.40 LAB L501.5300 136-145 mmol/L Low NA 135 LAB L501.5600 3.5-5.1 mmol/L Normal K 4.3 Result Comment: Slight Hemolysis, Result may be falsely increased. LAB L501.5900 98-107 mmol/L Normal CL 99 LAB L501.6100 21.0-32.0 mmol/L Normal CO2 28.0 LAB L501.6200 5-15 Normal GAP 8 Performed By: #### L100.0100, L500.4050, L501.5200 #### [facility] [address] [facility] [place], [place], [id number] MAGNESIUM Collected: 11/10/2017 Status: F Source: MAE 8:51 AM [facility] REPOSITORY Order Comment: Reason for Laboratory Test Chemotherapy TYPE CODE TESTS RESULT OUT OF RANGE REFERENCE UNITS LAB L501.5200 1.6-2.6 mg/dL Normal MG 2.1 Result Comment: Slight Hemolysis, Result may be falsely increased. Performed By: #### L100.0100, L500.4050, L501.5200 #### [facility] [address] [place], [place], [address] ONCOLOGY VISIT REPORT Observed: 10/30/2017 Status: F Source: DODGE 12:30 PM [facility] REPOSITORY [facility] [place] [place] [address] OFFICE VISIT Date of Service: 10/30/17 1038 MR#: [id number] Acct: [id number] Name: NURYS DIAZ Rep #: [id number] : 1945 From: Eloise ALY Age/Sex: 71/F Location: OMD Status: Signed Subjective - Date of Service Date of Service:: 10/30/17 - Chief Complaint Chemotherapy education- P-TCH + Neulasta - History of Present Illness 71-year-old woman noticed a right breast mass in July 2017, ultrasound/mammogram on 08/13/2017 showed irregular spiculated solid mass at 9 o'clock position measuring 2.5 cm in addition to enlarged lymph nodes in the axilla. She had right breast and axillary lymph node biopsy on August 27, 2017 which showed right breast invasive ductal carcinoma, and metastatic disease in Right Axillary lymph node, ER/NM positive, HER-2 3+ positive. She was seen at [facility] by Dr. Jimenez, declined chemotherapy. CT chest/abdomen/pelvis showed right breast nodules with multiple right axillary lymph nodes, no murmurs pulmonary nodules, atherosclerotic disease with coronary calcifications, pulmonary hypertension, and emphysematous changes. There was no evidence of metastatic disease in abdomen or pelvis. She had CT-guided needle biopsy of lung nodule on 09/25/2017, Pathology showed pulmonary Langerhans cell histiocytosis. She had a change of heart and now willing to consider neoadjuvant chemotherapy with Her2 targeted therapy and has elected to do it in [facility] [place]. Port placed 10/28/[address] English and MUGA scan obtained 10/24/2017 showed EF 59%. - Interval History The patient is presenting to clinic for chemotherapy education. Denies any outstanding complaints since her visit with Dr. Hoyt yesterday. Reports good support system at home by way of spouse and son. - Past Medical/Social History Past Medical History Cancer: Breast cancer Social History Social History: No changes Smoking Status Current every day smoker Review of Systems Constitutional:: Reports: Fatigue. Denies: Fever, Sweats, Weight loss, Appetite change, Chills Cardiovascular:: Denies: Chest pain, Palpitations, Dyspnea on exertion, Orthopnea, PND, Shortness of breath Respiratory: Reports: Cough - chronic. Denies: Hemoptysis, Shortness of Breath, Wheezing Gastrointestinal:: Denies: Abdominal pain, Nausea, Vomiting, Diarrhea, Constipation, Hematochezia Genitourinary: Denies: Dysuria, Hematuria, 15, Flank pain Musculoskeletal:: Reports: Arthralgia - chronic, generalized. Denies: Back pain, Myalgia Skin: Denies: Rash, Skin Changes, Wounds Neurological:: Denies: Headache, Dizziness, Numbness, Tingling, Frequent falls, Visual changes, Tinnitus, Hearing loss Psychiatric: Denies: Anxiety, Depression, Homicidal Ideations, Suicidal Ideations Vital Signs Height 5 ft 4 in Weight: 190 lb 9.6 oz Weight in Pounds 190.6 lbs Pulse Ox 90 - Physical Exam General: Alert, Oriented x3, No apparent distress HEENT: Atraumatic, Normocephalic Oropharynx:: Negative for: Dry mucosa, Ulcerated lesions Neck:: Supple, Trachea midline. Negative for: JVD, bilateral Cardiac:: Regular rate, Regular rhythm, Normal S1, Normal S2. Negative for: Murmur Lungs: Clear to auscultation, Excusion symmetrical. Negative for: Rhonchi, Wheezes Abdomen:: Bowel sounds x 4, Soft, Non-tender, Non-distended. Negative for: Hepatosplenomegaly Extremities:: Negative for: Cyanosis, Edema Skin:: - - port left upper chest with sutures in place, surrounding integument ecchymotic. Negative for: Lesions, Rash, Petechiae, Ecchymosis Psychiatric:: Appropriate affect, Euthymic Lymphatics:: Negative for: Cervical lymphadenopathy, Supraclavicular lymphadenopathy Assessment and Plan 1. Stage IIB(cT2 cN1 M0), invasive ductal carcinoma UO quadrant right breast, ER/NM positive, Her2 3+ positive by IHC- MUGA shows 59%. It has been proposed the patient initiate treatment with neoadjuvant Taxotere/carboplatin/Perjeta/Herceptin x 6 cycles. The patient has been thoroughly educated to risks/benefits associated with chemotherapy. Specifically, she has been educated to potential side effects, recommendations for symptom management, and circumstances in which she should contact provider immediately, such as the development of any signs/symptoms of infection inclusive of temperature > 100.4. Encouraged to go directly to ED should fever occur outside normal clinic hours. She has been provided written educational information and after hours contact information and prescriptions for prn antiemetics/EMLA cream and dexamethasone. Greater than 50% of this one hour visit was spent in counseling and a significant amount of time was allotted for questions. All the patient's concerns were addressed to her satisfaction and she is agreeable to proceed. Central venous access has already been obtained. Tentatively, she will commence with cycle 1 on 11/03/2017. Eloise New, MSN, TRANSITION COACH, AOCNP Medications: Prescriptions This Visit Medication Instructions Recorded Albuterol Aerosols [Ventolin 1 puff INHALATION DAILY 10/21/17 Aerosols] Albuterol Inhaler [Ventolin Hfa] 1 puff INHALATION DAILY 10/21/17 Fluticasone/Vilanterol [Breo 1 puff INHALATION QODAY 10/21/17 Primary Care Provider: Lesley Asher Referring Provider: Ignacio Hoyt MD - Problem List (1) Breast cancer, right breast Status: Chronic Qualifiers: Breast location: upper outer quadrant of breast Estrogen receptor status: positive Patient sex: female Qualified Code(s): C50.411 - Malignant neoplasm of upper-outer quadrant of right female breast; Z17.0 - Estrogen receptor positive status [ER+] (2) Educational circumstance Status: Acute 10/30/17 1230 <Electronically signed by Eloise ALY> Date Eloise ALY Cosigner Signature: Date (if applicable) CC: ONCOLOGY VISIT REPORT Observed: 10/28/2017 Status: F Source: MAE 4:55 PM [facility] REPOSITORY [facility] [place] [address] OFFICE VISIT Date of Service: 10/28/17 1531 MR#: [id number] Acct: [id number] Name: NURYS DIAZ Rep #: [id number] : 1945 From: Ignacio Hoyt MD Age/Sex: 71/F Location: OMD Status: Signed Subjective - Date of Service Date of Service:: 10/28/17 - Chief Complaint For management of Right breast cancer. - History of Present Illness 71-year-old woman noticed a right breast mass in July 2017, ultrasound/mammogram on 08/13/2017 showed irregular spiculated solid mass at 9 o'clock position measuring 2.5 cm in addition to enlarged lymph nodes in the axilla. She had right breast and axillary lymph node biopsy on August 27, 2017 which showed right breast invasive ductal carcinoma, and metastatic disease in Right Axillary lymph node, ER/NM positive, HER-2 3+ positive. She was seen at [facility] by Dr. Jimenez, declined chemotherapy. CT chest/abdomen/pelvis showed right breast nodules with multiple right axillary lymph nodes, no murmurs pulmonary nodules, atherosclerotic disease with coronary calcifications, pulmonary hypertension, and emphysematous changes. There was no evidence of metastatic disease in abdomen or pelvis. She had CT-guided needle biopsy of lung nodule on 09/25/2017, Pathology showed pulmonary Langerhans cell histiocytosis. She had a change of heart and now willing to consider neoadjuvant chemotherapy with Her2 targeted therapy and has elected to do it in [facility]. She was referred for Port placement and MUGA scan, comes for follow up. - Past Medical/Social History Past Medical History Cancer: Breast cancer Social History Smoking Status Current every day smoker Review of Systems Constitutional:: Reports: Pain - L side of neck from port.. Denies: Fever, Sweats, Weight loss, Appetite change, Chills Cardiovascular:: Denies: Chest pain, Palpitations, Dyspnea on exertion, Orthopnea, PND, Shortness of breath Respiratory: Denies: Cough, Hemoptysis, Shortness of Breath, Wheezing Gastrointestinal:: Denies: Abdominal pain, Nausea, Vomiting, Diarrhea, Constipation, Hematochezia Genitourinary: Denies: Dysuria, Hematuria, 15, Flank pain Musculoskeletal:: Denies: Back pain, Myalgia, Arthralgia Skin: Denies: Rash, Skin Changes, Wounds Neurological:: Denies: Headache, Dizziness, Visual changes, Tinnitus, Hearing loss Psychiatric: Denies: Anxiety, Depression, Homicidal Ideations, Suicidal Ideations Vital Signs Height 5 ft 4 in Weight: 87.09 kg Weight in Pounds 192.0 lbs Pulse Ox 95 - Physical Exam General: Alert, Oriented x3, No apparent distress, - - + Port Left infraclavicular area. Laboratory Data: Laboratory Tests WBC 6.0 (4.4-11.0) K/mm3 RBC 4.29 (4.2-5.4) M/mm3 Hgb 13.5 (12.0-15.0) g/dl Hct 41.4 (37-47) % MCV 96.5 (81-99) fL Diagnostic Data: 10/24/2017 MUGA reviewed, EF 59%. Assessment and Plan Right breast cancer stage IIB(cT2 cN1 M0), UO quadrant, ER/NM positive, Her2 3+ positive by IHC. Pulmonary Histocytosis. EF 59%. S/P Port placement. Discussed management of early breast cancer including surgery, neoadjuvant/adjuvant therapy, role of radiation therapy when lumpectomy is done. She wants to do Perjeta, Herceptin, Taxotere and Carboplatin. Discussed treatment with 6 cycles, risks,benefits and side effects. Plan is to start P-TCH on 11/03/2017. RTC 2 wks with CBC,CMP for toxicity check. Medications: Prescriptions This Visit Medication Instructions Recorded Albuterol Aerosols [Ventolin PRN 10/21/17 Aerosols] Albuterol Inhaler [Ventolin Hfa] INHALATION DAILY 10/21/17 Primary Care Provider: Lesley Asher Referring Provider: Ignacio Hoyt MD - Problem List (1) Breast cancer, right breast Status: Chronic Qualifiers: Breast location: upper outer quadrant of breast Estrogen receptor status: positive Patient sex: female Qualified Code(s): C50.411 - Malignant neoplasm of upper-outer quadrant of right female breast; Z17.0 - Estrogen receptor positive status [ER+] Code Visit Office Visits / Consults: 90802 OV L5 Est 10/28/17 9435 <Electronically signed by Ignacio Hoyt MD> Date Ignacio Hoyt MD Cosigner Signature: Date (if applicable) CC: OPERATIVE REPORT Observed: 10/28/2017 Status: F Source: MAE 11:17 AM [facility] REPOSITORY [facility] Medical Records Department [address] [place] [address] Operative Report 10/28/17 1116 MR#: [id number] Acct: [id number] Name: NURYS DIAZ Rep #: [id number] : 1945 71 From: Laith English MD PCP: LESLEY ASHER Status[place] [facility] [place] Location: [place] [address] Problem List (1) Breast cancer, right breast Status: Chronic Qualifiers: Breast location: upper outer quadrant of breast Estrogen receptor status: positive Patient sex: female Qualified Code(s): C50.411 - Malignant neoplasm of upper-outer quadrant of right female breast; Z17.0 - Estrogen receptor positive status [ER+] (2) Encounter for insertion of venous access port Status: Acute Report of Operation Date of Procedure: 10/28/17 Pre-Operative Diagnosis: Breast cancer. Encounter for venous vascular device Post-Operative Diagnosis: Same Surgery/Procedure Performed:: Ultrasound and fluoroscopy-guided left chest port placement utilizing left IJ Description of Procedure: After obtaining informed consent patient was brought back to the operating room MAC anesthesia was induced and the left chest and neck were prepped in normal sterile fashion. Ultrasound was used to evaluate both IJ is in the left IJ was selected. Next, using a needle, the left IJ was accessed and a guidewire was passed on into the superior vena cava under fluoroscopy guidance. A small incision was made over the puncture site and the dilator introducer was placed over the guidewire. Next this was capped and the pocket was made for the port. 1% lidocaine with epinephrine was injected in the proposed port site. An incision was made with scalpel. Electrocautery was used to make a pocket under the skin and subcutaneous tissue. Hemostasis was obtained. Next, the catheter was tunneled up to the neck incision site and placed through the introducer. The peel-away introducer was removed and the position of the catheter was confirmed on fluoroscopy. Next, the catheter was trimmed and attached to the port with the locking device. Interrupted 2-0 PDS were used to anchor the port to the chest wall and then the port was placed inside the pocket. The pocket was then flushed with saline and the port irrigated with saline. There was good blood return and the port flushed easily. Next, heparin was injected into the port. The skin was closed with subcutaneous interrupted 3-0 Vicryl sutures and interrupted skin 3-0 nylon sutures. A single 3-0 Vicryl sutures placed under the skin at the neck incision site. Steri-Strips were placed as well as op sites. Patient tolerated procedure well, was taken to PACU in stable condition. Chest x-ray will be obtained. Grafts/Implants Used: 8 [employer] PowerPort - Admit VTE Documentation VTE Present on Admission: Yes 10/28/17 1117 <Electronically signed by Laith English MD> Date Laith English MD CC: Laith English MD; LESLEY ASHER Signed DISCHARGE INSTRUCTION Observed: 10/28/2017 Status: F Source: DODGE 11:16 AM [facility] REPOSITORY [facility] Medical Records Department [address] [place] [address] Instructions for Home/Discharge Instructions 10/28/17 1115 MR#: [id number] Acct: [id number] Name: KORYSANDRINENURYS B Rep #: [id number] : 1945 71 From: Laith English MD PCP: LESLEY ASHER Status: REG SDC Discharge Diet: No Restrictions - Pain medication may cause nausea. You should typically eat light foods as you take your pain medication. Discharge Activity: Return to Normal Activity, May Shower - with your bandage in place in 1-2 days after surgery. DO NOT SHOWER WHEN YOUR PORT IS ACCESSED. Call your doctor if your incision/area has: Continuous Slow Oozing, Sudden Increased Bleeding, Increased Pain/ Swelling, Increased Redness Call your doctor if you observe: Fever of 101 or Higher Remove Dressing in (days):: 2 - When you remove the bandage, leave the steri-strips intact until they fall off. Allergies/Adverse Reactions: Allergies No Known Allergies Allergy (Verified 10/24/17 09:32) Medications to take at Discharge Albuterol Aerosols [Ventolin Aerosols] PRN 10/21/17 Albuterol Inhaler [Ventolin Hfa] INHALATION DAILY 10/21/17 Fluticasone/Vilanterol [Breo Ellipta 200-25 Mcg INH] INHALATION QODAY 10/21/17 Levothyroxine [Synthroid] 137 mcg PO DAILY 10/21/17 Metformin HCl [Metformin HCl ER] 500 mg PO DAILY 10/21/17 Primary Care Physician: Lesley Asher [Primary Care Provider] - Please Follow Up With: Laith English MD When: call tomorrow to make 7-10 day appt for suture removal [phone] 10/28/17 1113 <Electronically signed by Laith English MD> Date Laith English MD CC: LESLEY ASHER CHEST 1 VIEW Observed: 10/28/2017 Status: F Source: DODGE (PORTABLE) 11:02 AM [facility] REPOSITORY [facility] Imaging Services [address] [place] [id number] Chest 1 View (Portable) MR#: [id number] Acct: [id number] Name: NURYS DIAZ Rep #: [id number] : 1945 F 71 From: Chang Shepard MD PCP: LESLEY ASHER [place] [facility] [place]: Chest 1 View (Portable) Date of Exam: 10/28/17 Exam# [id number] Ordering Dr: Laith English MD STUDY: X-RAY CHEST REASON FOR EXAM: Female, 71 years old. Post port placement. TECHNIQUE: Single AP portable view of the chest. COMPARISON: None. FINDINGS: A left-sided portacatheter has been inserted. The tip is in the midportion of the superior vena cava. Scattered calcified granulomas. Mild lingular scarring. There is no demonstrated pleural abnormality. Normal size heart. Normal mediastinum and rah. Normal visualized pulmonary arteries. There is atherosclerotic calcification of the aortic arch with tortuosity. Normal visualized thoracic spine. Normal visualized ribs, clavicles, and shoulders. There is no demonstrated abnormality of the visualized soft tissue structures of the upper abdomen. RAD/Chest 1 View (Portable) IMPRESSION: The tip of the port is in the midportion of the superior vena cava. Electronically Signed: Chang Shepard MD at 11:59 EDT Tel [phone], Service support , CC: Laith English MD; LESLEY ASHER Batch Tester: Signed CBC W/DIFF, AUTOMATED Collected: 10/28/2017 Status: F Source: MAE 9:59 AM [facility] REPOSITORY Order Comment: Reason for Laboratory Test . TYPE CODE TESTS RESULT OUT OF RANGE REFERENCE UNITS LAB L100.1000 4.4-11.0 K/mm3 Normal WBC 6.0 LAB L100.1200 4.2-5.4 M/mm3 Normal RBC 4.29 LAB L100.1300 12.0-15.0 g/dl Normal HGB 13.5 LAB L100.1400 37-47 % Normal HCT 41.4 LAB L100.1500 81-99 fL Normal MCV 96.5 LAB L100.1600 27.0-32.0 pg Normal MCH 31.5 LAB L100.1700 32-36 g/gl Normal MCHC 32.6 LAB L100.1810 11.6-14.6 % High RDW CV 14.7 LAB L100.1820 35.1-43.9 fl High RDW SD 52.4 LAB L100.1900 150-450 K/mm3 Normal PLT 242 LAB L100.2000 6.2-12.0 fl Normal MPV 9.8 LAB L100.2100 47-70 % Normal NEUT% 60.7 LAB L100.2200 19-41 % Normal LY% 26.6 LAB L100.2300 0-10 % High MONO% 10.7 LAB L100.2400 0-5 % Normal EO% 1.5 LAB L100.2500 0-1 % Normal BASO% 0.3 LAB L100.2550 0.0-0.9 % Normal IM GRAN % 0.200 Result Comment: IG% - Immature Granulocytes (promyelocytes, myelocytes and metamyelocytes) > 1% indicates that a LEFT SHIFT is Present. LAB L100.2620 2.0-7.7 X10 3/uL Normal Absolute Neut 3.6 LAB L100.2720 0.83-4.51 X10 3/ul Normal Absolute Lymph 1.59 Performed By: #### L100.0100, L500.4050, L504.2610 #### [facility] [address] [place], [address] COMPREHENSIVE METABOLIC Collected: 10/28/2017 Status: F Source: [facility] 9:59 AM [facility] REPOSITORY Order Comment: Reason for Laboratory Test . Serial Specimen #1, #2 or #3? 1 TYPE CODE TESTS RESULT OUT OF RANGE REFERENCE UNITS LAB L501.0100 74-106 mg/dL Normal GLU 99 Result Comment: Please note revised GLUCOSE reference range effective 2017. LAB L501.1000 7-18 mg/dL Normal BUN 9 LAB L501.1100 0.55-1.02 mg/dL Normal CREAT,SERUM 0.72 Result Comment: The validity of the calculated GFR AND GFRAA in patients over 70 years has not been determined. Clinical correlation is essential. LAB L501.1110 >60 mL/min Normal EST GFR 86 Result Comment: Non- GFR Calc LAB L501.1115 >60 mL/min Normal EST GFR - AA 104 Result Comment: GFR Calc LAB L501.1255 ml/min Normal Estimated CRCL 45.85 LAB L501.1300 10-20 RATIO Normal BUN/CRE 12.6 LAB L501.1500 6.4-8. g/dL Normal 2 T PROT 6.8 LAB L501.1800 3.2-5. g/dL Normal 0 ALB 3.4 LAB L501.1950 2.2-4. g/dL Normal 2 GLOB 3.4 LAB L501.2000 0.9-2. RATIO Normal 4 A/G 1.0 LAB L501.2200 8.5-10 mg/dL Low .1 CA 8.0 LAB L501.4100 15-37 U/L Low AST 14 LAB L501.4305 45-117 U/L Normal ALK P 96 LAB L501.4405 13-56 U/L Normal ALT 19 LAB L501.4600 0.20-1 mg/dL Normal .00 T BILI 0.80 LAB L501.5300 136-14 mmol/L Normal 5 NA 139 LAB L501.5600 3.5-5. mmol/L Normal 1 K 4.2 LAB L501.5900 98-107 mmol/L Normal CL 106 LAB L501.6100 21.0-3 mmol/L Normal 2.0 CO2 29.0 LAB L501.6200 5-15 Low GAP 4 Performed By: #### L100.0100, L500.4050, L504.2610 #### [facility] [address] [place], [address] LDH Collected: 10/28/2017 Status: F Source: DODGE 9:59 AM [facility] REPOSITORY Order Comment: Reason for Laboratory Test . Serial Specimen #1, #2 or #3? 1 TYPE CODE TESTS RESULT OUT OF RANGE REFERENCE UNITS LAB L504.2610 84-246 U/L Normal LDH 130 Performed By: #### L100.0100, L500.4050, L504.2610 #### [facility] [address] [place], [address] SURGERY VISIT REPORT Observed: 10/24/2017 Status: F Source: DODGE 2:54 PM [facility] REPOSITORY [facility] 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 Analyst Required: No Is patient in pain?: No Allergies No Known Allergies Allergy (Verified 10/24/17 09:32) Medications Albuterol Aerosols [Ventolin Aerosols] PRN 10/21/17 [History Confirmed 10/24/17] Albuterol Inhaler [Ventolin Hfa] INHALATION DAILY 10/21/17 [History Confirmed 10/24/17] Fluticasone/Vilanterol [Breo Ellipta 200-25 Mcg INH] INHALATION QODAY 10/21/17 [History Confirmed 10/24/17] Levothyroxine [Synthroid] 137 mcg PO DAILY 10/21/17 [History Confirmed 10/24/17] Metformin HCl [Metformin HCl ER] 10/21/17 [History Confirmed 10/24/17] [facility] Medical History Abnormal breast biopsy (Acute) Asthma (Acute) Breast cancer (Acute) History of elevated glucose (Acute) Hyperthyroidism (Acute) Surgical History H/O toe surgery (Acute) History of appendectomy (Acute) History of back surgery (Acute) Family History Brother Cancer Father Lung cancer Aunt Cancer Social History Smoking Status: Current every day smoker HPI HPI HPI: NURYS DIAZ, is a 71 F who presents to the office today for chest port placement. The patient was recently diagnosed with right breast carcinoma. She is seeing a surgeon Dr. Valentin at [facility]. She recently saw Dr. Hoyt to set up oncology in [facility] and will be getting her chemotherapy in [facility]. She will be returning to her surgeon at [facility] for definitive breast cancer surgery. She comes to me for chest port placement for her chemotherapy. She reports that she found this right breast cancer a few months ago and her last mammogram was 5 years ago. She has never had a screening colonoscopy and does not want one. ROS General General: Yes fatigue and breast cancer; no weight change, appetite, colon cancer or weakness HEENT HEENT: No difficulty swallowing, eye injury, eye surgery, swollen glands or hoarseness Endo Endocrine: Yes thyroid disease; no diabetes mellitus, thyroid cancer, Hair loss, heat intolerance or cold intolerance Skin Skin: No rash or changing moles Breast Breast: No left breast lump, right breast lump, nipple discharge, breast pain, abnormal mammogram, abnormal US or breast enlargement Additional Details: Breast cancer Musc Musculoskeletal: Yes back problems and arthritis; no rheumatoid arthritis, gout or joint pain Cardio Cardiovascular: No murmur, pacemaker, heart disease, atrial fibrillation, high blood pressure, heart attack, heart stent, palpitations, shortness of breat with exertion or chest pain Psych Psychiatric: Yes depression and anxiety; no hearing voices Resp Respiratory: Yes shortness of breath, No sleep apnea, Yes cough, No COPD, Yes asthma, No emphysema, No wheezing Gastro Gastrointestinal: No abdominal pain, No nausea or vomiting, No diarrhea, No constipation, No blood in stool, No acid reflux, Yes hemorrhoids, No ulcers, No gallbladder problem, No black,tarry stools Vidal Hematologic: No blood thinners, No blood disorders, No bleeding, No anemia, No blood clots Neuro Neurologic: No system reviewed and no additional complaints, except as docu, No as per HPI, No abnormal walking, No abnormal hearing, No abnormal movements, No abnormal speech, No behavioral changes, No burning sensations, No confusion, No seizure-like activity, No unsteadiness, No dizziness, No localized weakness, No frequent falls, No headache(s), No lack of coordination, No loss of vision, No memory loss, No numbness, No other visual disturbances, No radiating pain, No restless legs, No sensory deficit, No fainting, No tingling, No tremor(s), No weakness, No other Exam Const General: cooperative Orientation: alert, oriented x3 Chest Chest palpation AND inspection: normal inspection of the chest Breast Palpation: No nipple discharge, Yes breast mass Resp Effort AND Inspection: normal respiratory effort Auscultation: clear to auscultation bilaterally Cardio Rate: regular rate Rhythm: regular rhythm Heart Sounds: no murmurs GI Inspection: non-distended Palpation: soft, nontender Assessment AND Plan Problems 1. Malignant neoplasm of upper-outer quadrant of right breast in female, estrogen receptor positive C50.411; Z17.0 2. Encounter for insertion of venous access port Z45.2 Plan 1. The patient has newly diagnosed carcinoma of the right breast. I do not have any imaging for her as it was all done in [facility]. She comes to me for port placement for neoadjuvant chemotherapy and will return to her surgeon at [facility] for definitive surgical treatment of her breast cancer. 2. I explained port placement to her in great detail and explained the risks including but not limited to bleeding, infection, pneumothorax. I explained the risks of having an indwelling catheter such as line infection and DVT. The patient understands all the risks and is willing to proceed with surgery. 3. The patient has never had a screening colonoscopy. I highly recommended this to her. She is refusing at this time. Laith English MD Pager: [facility] [address] [place] [address], [address] [place] [address] Office: Coding Level of Care Code Off vis,new,level 3 Diagnoses Malignant neoplasm of upper-outer quadrant of right breast in female, estrogen receptor positive C50.411; Z17.0 Breast location: upper outer quadrant of breast Estrogen receptor status: positive Encounter for insertion of venous access port Z45.2 10/24/17 1454 <Electronically signed by Laith English MD> Date Laith English MD Cosigner Signature: Date (if applicable) CC: Ignacio Hoyt MD; LESLEY ASHER MUGA REST OR Observed: 10/24/2017 Status: F Source: DODGE STRESS - MULTI 10:40 AM [facility] REPOSITORY [facility] Imaging Services [address] [place], [place] [address] [address] MUGA Rest or Stress - Multi MR#: [id number] Acct: [id number] Name: NURYS DIAZ Rep #: [id number] : 1945 F 71 From: Rayo Melvin DO PCP: ASHER,THERES Status: REG CLI Study: MUGA Rest or Stress - Multi Date of Exam: 10/24/17 Exam# [id number] Ordering Dr: Ignacio Hoyt MD CLINICAL: 71-year-old female with reported history of carcinoma of the breast presenting for evaluation of resting left ventricular myocardial function. RESTING RADIONUCLIDE VENTRICULOGRAPHY COMPARISON: None available FINDINGS: Following the intravenous administration of 25.8 mCi of 99m Tc Ultratag RBCs, the resting labeled blood pool radionuclide ventriculogram reveals: 1. The left ventricular ejection fraction was calculated to be 59.0 % by equilibrium technique. 2. Left and right ventricular wall motion is considered normal and uniform in all projections. NM/MUGA Rest or Stress - Multi IMPRESSION: 1. NORMAL resting labeled blood pool radionuclide ventriculography. A. Preservation of left ventricular systolic function as described above. Electronically Signed: Rayo Melvin DO at 12:44 EDT Tel , Service support , CC: Ignacio Hoyt MD; LESLEY ASHER Batch Tester: Signed ONCOLOGY CONSULTATION Observed: 10/24/2017 Status: F Source: DODGE 10:01 AM [facility] REPOSITORY [facility] [address] [place] [address] Oncology Consultation Date of Service: 10/22/17 0956 MR#: [id number] Acct: [id number] Name: NURYS DIAZ Rep #: [id number] : 1945 From: Ignacio Hoyt MD Age/Sex: 71/F Location: [facility] Status: Signed Consult Referring Physician: Dr. Vanesa Jimenez Consult Results: Right breast Cancer. Subjective Date of Service:: 10/22/17 Chief Complaint: Wants breast cancer management here. History of Present Illness: 71-year-old woman noticed a right breast mass in July 2017, ultrasound/mammogram on 08/13/2017 showed irregular spiculated solid mass at 9 o'clock position measuring 2.5 cm in addition to enlarged lymph nodes in the axilla. She had right breast and axillary lymph node biopsy on August 27, 2017 which showed right breast invasive ductal carcinoma, and metastatic disease in Right Axillary lymph node, ER/NM positive, HER-2 3+ positive. She was seen at [facility] by Dr. Jimenez, declined chemotherapy. CT chest/abdomen/pelvis showed right breast nodules with multiple right axillary lymph nodes, no murmurs pulmonary nodules, atherosclerotic disease with coronary calcifications, pulmonary hypertension, and emphysematous changes. There was no evidence of metastatic disease in abdomen or pelvis. She had CT-guided needle biopsy of lung nodule on 09/25/2017, Pathology showed pulmonary Langerhans cell histiocytosis. She had a change of heart and now willing to consider neoadjuvant chemotherapy with Her2 targeted therapy and has elected to do it in [facility]. Health History: Past Medical History Cancer: Breast cancer Past Medical History (Last Reviewed 10/22/17 @ 09:04 by Didi Chahal) Abnormal breast biopsy (Acute) Asthma (Acute) Breast cancer (Acute) History of elevated glucose (Acute) Hyperthyroidism (Acute) Past Surgical History (Last Reviewed 10/22/17 @ 09:04 by Didi Chahal) H/O toe surgery (Acute) History of appendectomy (Acute) History of back surgery (Acute) Family History (Last Reviewed 10/22/17 @ 09:04 by Didi Chahal) Brother Cancer Father Lung cancer Aunt Cancer Allergies/Adverse Reactions: Allergy/AdvReac Type Severity Reaction Status Date / Time No Known Allergies Allergy Verified 10/24/17 09:32 Home Medications Medication Instructions Recorded Albuterol Aerosols [Ventolin PRN 10/21/17 Aerosols] Albuterol Inhaler [Ventolin Hfa] INHALATION DAILY 10/21/17 Review of Systems Constitutional:: Denies: Fever, Sweats, Weight loss, Appetite change, Chills Cardiovascular:: Denies: Chest pain, Palpitations, Dyspnea on exertion, Orthopnea, PND, Shortness of breath Respiratory: Denies: Cough, Hemoptysis, Shortness of Breath, Wheezing Gastrointestinal:: Denies: Abdominal pain, Nausea, Vomiting, Diarrhea, Constipation, Hematochezia Genitourinary: Denies: Dysuria, Hematuria, 15, Flank pain Musculoskeletal:: Denies: Back pain, Myalgia, Arthralgia Skin: Denies: Rash, Skin Changes, Wounds Neurological:: Denies: Headache, Dizziness, Visual changes, Tinnitus, Hearing loss Psychiatric: Denies: Anxiety, Depression, Homicidal Ideations, Suicidal Ideations Vital Signs Height 5 ft 4 in Weight: 86.183 kg Weight in Pounds 190.0 lbs Pulse Ox 93 - Physical Exam General: Alert, Oriented x3, No apparent distress HEENT: Atraumatic, PERRLA, EOMI, Normocephalic Oropharynx:: Dry mucosa Neck:: Supple, Trachea midline. Negative for: JVD, bilateral Cardiac:: Regular rate, Regular rhythm, Normal S1, Normal S2. Negative for: Murmur Lungs: Clear to auscultation, Excusion symmetrical. Negative for: Rhonchi, Wheezes Abdomen:: Bowel sounds x 4, Soft, Non-tender, Non-distended. Negative for: Hepatosplenomegaly Extremities:: Negative for: Cyanosis, Edema Neurological: Neuro grossly intact Skin:: Negative for: Lesions, Rash, Petechiae, Ecchymosis Psychiatric:: Appropriate affect, Euthymic Lymphatics:: Negative for: Cervical lymphadenopathy, Supraclavicular lymphadenopathy, Axillary lymphadenopathy Breast:: - - R breast + 2cm UO mass, L breast- no masses. Assessment and Plan Right breast cancer stage IIB(cT2 cN1 M0), UO quadrant, ER/NM positive, Her2 3+ positive. Wants to do neoadjuvant therapy as suggested by Dr. Vanesa Jimenez. Discussed management of early breast cancer including surgery, neoadjuvant/adjuvant therapy, role of radiation therapy when lumpectomy is done. Plan is to obtain MUGA to assess EF then decide on therapy. Surgery referral for breast cancer mgmt and port placement. RTC 1 wk with CBC,CMP. Medications: Prescriptions This Visit Medication Instructions Recorded Albuterol Aerosols [Ventolin PRN 10/21/17 Aerosols] Albuterol Inhaler [Ventolin Hfa] INHALATION DAILY 10/21/17 Primary Care Provider: Lesley Asher Referring Provider: Ignacio Hoyt MD - Problem List (1) Breast cancer, right breast Status: Chronic Qualifiers: Breast location: upper outer quadrant of breast Estrogen receptor status: positive Patient sex: female Qualified Code(s): C50.411 - Malignant neoplasm of upper-outer quadrant of right female breast; Z17.0 - Estrogen receptor positive status [ER+] Code Visit Office Visits / Consults: [id number] OP Consult L5 10/24/17 1001 <Electronically signed by Ignacio Hoyt MD> Date Ignacio Hoyt MD [facility] Signature: Date (if applicable) CC: Andrei Asher MD; LESLEY ASHER CT LUNG/MEDIASTINUM BIOPSY Observed: 09/25/2017 Status: F Source: [facility] 4:54 PM [facility] REPOSITORY EXAM: [facility] CT LUNG/MEDIASTINUM BIOPSY, 09/25/2017 11:35 AM CLINICAL INDICATIONS: newly dx breast cancer, please obtain er/pr/her2 testing thank you RELEVANT CLINICAL HISTORY: C50.811:Malignant neoplasm of overlapping sites of right female breast Z17.0:Estrogen receptor positive status (ER+) C50.911:Malignant neoplasm of unspecified site of right female breast C77.3:Secondary and unspecified malignant neoplasm of axilla and upper limb lymph nodes COMPARISON: CT chest September 08, 2017 OPERATORS: Fern Skinner MD and Ana M Villeda MD PROCEDURE/TECHNIQUE: DLP: 93 mGy x cm kVp: 100 Consent: Written, informed consent was obtained after explaining the procedure to the patient, including benefits and risks, and answering the patient's questions. Moderate Sedation: Intravenous Fentanyl and Versed were administered during the procedure. Continuous physiologic monitoring of vital signs for moderate procedural sedation was performed by the radiology nursing staff for 45 minutes. Position: The patient was placed on the CT table in prone position, and initial axial images through the region of interest in chest were obtained. A radiopaque marker was then placed, and the patient rescanned to confirm position. Preparation: Time out was performed. Measurements were made to a lesion in the left lung. The patient was then prepped and draped in sterile fashion. Local anesthesia was provided using 2% Lidocaine. Procedure: The [id number] Mermaid biopsy gun was advanced into the targeted area using CT fluoroscopic guidance. Multiple core samples were taken. The specimens were placed in formalin solution and sent to pathology for analysis. Post-procedure: The patient tolerated the procedure well, with no immediate complications. IMPRESSION: Successful CT-guided biopsy of a left lung nodule. Fern Skinner MD was in the room and participated during all cooper portions of this procedure. I personally viewed and interpreted these images and I have reviewed and approved this report. CHEST PORTABLE Observed: 09/25/2017 Status: F Source: [facility] 3:59 PM [facility] REPOSITORY EXAM: XR CHEST PORTABLE, 09/25/2017 14:38 PM COMPARISON: CT-guided biopsy from the same date. CLINICAL INDICATIONS: post biopsy RELEVANT CLINICAL HISTORY: FINDINGS: (Adequate technique) Life Support Devices: None Chest Wall: Normal Rah: Normal Mediastinum: Normal Pleural Spaces: No definite pleural effusion. No definite pneumothorax. Lungs: Multiple nodules not visible on the chest radiograph. Cardiac Silhouette: Normal, without overall or specific chamber enlargement, or abnormal calcification Thoracic Aorta: Normal Pulmonary Vessels: Normal, without PVH IMPRESSION: No pneumothorax status post biopsy of a right lung nodule. ICAL PATHOLOGY Observed: 09/25/2017 Status: F Source: [facility] 11:40 AM [facility] REPOSITORY Surgical Pathology Report Patient Name: [facility]URYS DIAZ [facility]. Rec #: [id number] Submitting Physician: JON FLORES --- Clinical History --- Clinical History: New dx breast cancer, please obtain ER/NM/Her2. ---Final Pathologic Diagnosis--- A. Lung, nodule, biopsy: - Pulmonary Langerhans cell histiocytosis. COMMENT: The diagnosis is supported on immunostains for AE1/3, CD68, S100 and CD1a (performed on block A1) and immunostains for S100 and CD1a (performed on block A2). The case was reviewed with Dr. Romero Stover from breast pathology service. [id number]:10/01/2017 Electronically Signed By Richard Hernandez MD 10/01/2017 14:09:27 Professional Interpretation performed at location: [address] [place] [address] ---MICROSCOPIC:--- All controls show appropriate reactivity. All immunohistochemistry, in situ hybridization, and histochemical tests were developed by and are performed at the [facility], [address] [place] [address]. All tests reported here, except those addressing HER2 overexpression as a predictive marker, have not been cleared by or approved by the [place] Food and Drug Administration (FDA). The laboratory is regulated under CLIA as qualified to perform high-complexity testing. The tests are used for clinical purposes. They should not be regarded as investigational or for research. ---SPECIMEN(S) RECEIVED:--- SBX A: Lung /Bronchus, BX ---GROSS DESCRIPTION:--- The specimen is received in one properly labeled container with the patient's name and accession number. A. The specimen is designated lung nodule and consists of six cores of garcia-pink soft tissue that range in length from 0.1 to 0.8 cm and an average diameter of 0.1 cm. TE 2 Time of specimen removal from patient: 09/25/2017 at 11:20 a.m. Time specimen placed in formalin: 09/25/2017 at 11:20 a.m. Cold Ischemia Time: 0 minutes Time specimen removed from formalin: 09/25/2017 at 22:50 Total Fixation Time: 11 hours 30 minutes Lab Use Only: JobID [id number] Gross description by: Keri Santos Performed By: #### SURGP #### [place] [id number] HEMOGRAM (CBC AND Collected: 09/25/2017 Status: F Source: [facility] PLATELET) 9:24 AM [facility] REPOSITORY TYPE CODE TESTS RESULT OUT OF REFERENCE UNITS RANGE LAB WBC 3.98-10.04 K/uL WBC Count 7.14 LAB RBC 3.93-5.22 M/uL RBC Count 4.75 LAB HGB 11.2-15.7 g/dL Hemoglobin 15.5 LAB HCT 34.1-44.9 % Hematocrit High 45.2 LAB MCV 79.4-94.8 fL Mean Cell High Volume 95.2 LAB MCH 25.6-32.2 pg Mean Cell Hgb High 32.6 LAB MCHC 32.2-35.5 g/dL Mean Cell Hgb Conc 34.3 LAB RDW 11.7-14.4 % RBC High Distribution 14.7 LAB PLT 182-369 K/uL Platelet Count 264 LAB MPV 9.4-12.3 fL Mean Platelet Volume 10.0 LAB NRBC 0.0-0.2 /100 WBC NUCLEATED RBC 0.0 Performed By: #### HEMOGC, PTI #### [facility] [address] [place] [id number] [place] [address] [address] [place], [place] [address] PT/INR BATTERY Collected: 09/25/2017 Status: F Source: [facility] 9:24 AM [facility] REPOSITORY TYPE CODE TESTS RESULT OUT OF RANGE REFERENCE UNITS LAB PT 11.9-14.2 sec PT 12.0 LAB INR 0.9-1.1 INR 0.9 Performed By: #### HEMOGC, PTI #### [facility] [address] [place] [id number] [place] [address] [place] [id number] ABDOMEN/PELVIS WITH Observed: 09/09/2017 Status: F Source: [facility] CONTRAST 7:33 AM [facility] REPOSITORY EXAM: CT ABDOMEN/PELVIS WITH CONTRAST, 09/08/2017 13:08 PM COMPARISON: No prior studies available for comparison. CLINICAL INDICATIONS: Staging, newly diagnosed breast cancer; Patient with history of breast cancer; compare with previous exam. Measurements per RECIST criteria where applicable.; C50.811:Malignant neoplasm of overlapping sites of right female breast Z17.0:Estrogen receptor positive status (ER+) C50.911:Malignant neoplasm of unspecified site of right female breast C77.3:Secondary and unspecified malignant neoplasm of axilla and upper limb lymph nodes D49.3:Neoplasm of unspecified behavior of breast TECHNIQUE: Helical axial images of the abdomen and pelvis were performed from the lung bases through the ischial tuberosities following the administration of oral and intravenous contrast. Coronal 2 mm reconstructions were also made. CONTRAST: iohexol (OMNIPAQUE) 300 MG/ML vial 50 mL; Route of Administration: Oral; Dose: 50 mL. iohexol (OMNIPAQUE) 350 MG/ML injection 1-171 mL; Route of Administration: Intravenous; Dose: 90 mL. This patient underwent a CT examination using radiation exposure as low as reasonably achievable. CTDIvol and DLP radiation exposure values for each series were: Exposure: 1; Series: 2; Anatomy: Chest; Phantom: 32 cm; CTDIvol: 8; DLP: 270 Exposure: 2; Series: 3; Anatomy: Abdomen; Phantom: 32 cm; CTDIvol: 17; DLP: 846 The following accession numbers are related to this dose report {[id number]}: [id number] The dose indicators for CT are the volume Computed Tomography (CT) Dose Index (CTDIvol) and the Dose Length Product (DLP), and are measured in units of mGy and mGy-cm, respectively. These indicators are not patient dose, but values generated from the CT scanner acquisition factors and may substantially underestimate or overestimate the absorbed dose based on patient size and other factors. FINDINGS: Lung Bases: Please see dedicated chest CT scan of the same date for full description of the intra-thoracic contents. ABDOMEN Liver: Liver is normal in size and CT density. No focal lesions. Biliary/Gallbladder: The gallbladder is normal without evidence of radiopaque stones. The biliary tree is nondilated. Spleen: Spleen is normal in size and CT density. A few small nodular densities anterior to the spleen in the left upper quadrant are likely security systems sales representative of splenules. Pancreas: Pancreas is normal. There is no evidence of pancreatic mass or peripancreatic fluid. Kidneys: Kidneys are normal in size. There are no stones or hydronephrosis. A few tiny cortical hypodensities in the right kidney are too small to characterize, but most likely represent incidental cysts. Adrenals: Mild nodular thickening of the adrenal glands noted, nonspecific. Retroperitoneal/Vasculature: The abdominal aorta is normal in course and caliber. Aortoiliac atherosclerotic disease noted. The main portal vein and principal branch vessels are patent. No retroperitoneal adenopathy is identified. Gastrointestinal/Mesentery: Small diverticulum arising from the third portion of the duodenum. The bowel loops are non-dilated without wall thickening or mass. A submucosal lipoma is noted in the sigmoid colon measuring 2.0 x 1.3 cm. Suggestion of suture material along the inferior cecum, possibly related to appendectomy. PELVIS Bladder: The bladder is normal. Genital: This is The uterus and adnexal structures are unremarkable. Other: No intraperitoneal free air or free fluid. Bony Structures: Visualized bony structures are consistent with the patient's age. Demonstrate degenerative changes commensurate with age. No suspicious osseous lesion. IMPRESSION: 1. No convincing evidence of metastatic disease in the abdomen or pelvis. 2. Mild nodular thickening of the adrenal glands, nonspecific. Findings may relate to adrenal hyperplasia. Attention requested on follow- up imaging. 3. Additional ancillary findings as above. BONE SCAN WHOLE Observed: 09/08/2017 Status: F Source: [facility] BODY 4:24 PM [facility] REPOSITORY EXAM: NUC BONE SCAN WHOLE BODY, 09/08/2017 14:56 PM CLINICAL INDICATIONS: Neoplasm: breast, staging; Staging, newly diagnosed breast cancer; COMPARISON: No prior studies available for comparison. TECHNIQUE: 27.4 mCi Tc 99m MDP was administered IV per protocol. Whole body scintigrams were obtained in the anterior and posterior projection approximately 3 hours post injection of radiopharmaceutical. FINDINGS: Soft tissue tracer distribution is unremarkable. Physiologic tracer excretion is seen in the kidneys and bladder. Mild heterogeneity in the spine is likely degenerative. There is no suspicious focus of increased radiotracer uptake in the axial or visualized appendicular skeleton. IMPRESSION: No definite scintigraphic evidence of osteoblastic metastatic disease. CHEST WITH Observed: 09/08/2017 Status: F Source: [facility] 1:44 PM [facility] REPOSITORY EXAM: CT CHEST WITH CONTRAST, 09/08/2017 13:08 PM COMPARISON: No prior chest CT is available for comparison at this time. CLINICAL INDICATIONS: Staging, newly diagnosed breast cancer; RELEVANT CLINICAL HISTORY: C50.811:Malignant neoplasm of overlapping sites of right female breast Z17.0:Estrogen receptor positive status (ER+) C50.911:Malignant neoplasm of unspecified site of right female breast C77.3:Secondary and unspecified malignant neoplasm of axilla and upper limb lymph nodes D49.3:Neoplasm of unspecified behavior of breast Patient with history of breast cancer; compare with previous exam. Measurements per RECIST criteria where applicable.; TECHNIQUE: Following the administration of intravenous contrast, axial CT images were reconstructed from the volumetric data set, from the thoracic inlet through the adrenal glands. Coronal MIP images were also reconstructed. CONTRAST: iohexol (OMNIPAQUE) 300 MG/ML vial 50 mL; Route of Administration: Oral; Dose: 50 mL. iohexol (OMNIPAQUE) 350 MG/ML injection 1-171 mL; Route of Administration: Intravenous; Dose: 90 mL. This patient underwent a CT examination using radiation exposure as low as reasonably achievable. CTDIvol and DLP radiation exposure values for each series were: Exposure: 1; Series: 2; Anatomy: Chest; Phantom: 32 cm; CTDIvol: 8; DLP: 270 Exposure: 2; Series: 3; Anatomy: Abdomen; Phantom: 32 cm; CTDIvol: 17; DLP: 846 The following accession numbers are related to this dose report {[id number]}: [id number] The dose indicators for CT are the volume Computed Tomography (CT) Dose Index (CTDIvol) and the Dose Length Product (DLP), and are measured in units of mGy and mGy-cm, respectively. These indicators are not patient dose, but values generated from the CT scanner acquisition factors and may substantially underestimate or overestimate the absorbed dose based on patient size and other factors. FINDINGS: Lungs and Pleura: Bilateral upper lung predominant centrilobular and paraseptal emphysematous changes. Numerous indeterminate bilateral pulmonary nodules and groundglass nodular opacities. For example, left upper lobe 1.0 x 1.0 cm nodule (image 14) and middle lobe 1.6 x 1.0 cm peribronchial nodule (image 38). Left lower lobe and lingular segment curvilinear atelectasis and/or scarring near the base. Areas of mild mosaic attenuation suggestive of air trapping and small airways disease. No dense lung consolidation or pleural effusion. Tracheobronchial tree: Mild bilateral peribronchial thickening as well as focal left lower lobe mucous plugging (images 38 through 40). Mediastinum/Rah: No mediastinal or hilar lymphadenopathy. Mediastinal/right hilar calcified granulomas. Axilla and Supraclavicular Region: Right inferior axillary/lateral chest wall 1.5 x 1.0 cm lymph node (image 22) as well as some additional small/borderline enlarged enhancing right axillary/lateral chest wall lymph nodes, such as 1.3 x 0.9 cm lymph node (image 19). No supraclavicular or left axillary lymphadenopathy. Visualized thyroid gland is unremarkable. Cardiovascular: The cardiac chambers and pericardium are within normal limits. Aortic and branch vessel as well as scattered coronary artery atherosclerotic plaque/calcifications. Enlarged pulmonary trunk measuring 3.3 cm suggestive of pulmonary arterial hypertension.. Upper Abdomen: Please see separate abdomen/pelvis CT report of this same date for evaluation of the visualized upper abdominal structures. Bones and Soft Tissue: Punctate sclerotic focus at the level of the T5/T6 intervertebral disc most likely disc calcification/degenerative change (image 25). Multilevel degenerative changes in the spine. Right lateral breast 1.6 x 1.5 cm nodule (image 31). Right breast calcification or biopsy clip with additional indeterminate nodular opacity in this area (image 30). Nonspecific right breast skin thickening. IMPRESSION: 1. Indeterminate right breast nodules could be related to patient's known history of breast cancer. Multiple right axillary/lateral chest wall small and mildly enlarged lymph nodes are concerning for metastatic disease. 2. Numerous bilateral indeterminate pulmonary nodules. These are suspicious for metastatic disease. Other possible etiologies would include infectious/inflammatory nodules. Recommend follow-up chest CT to evaluate for stability/resolution and an interval of 6-8 weeks is suggested. 3. Mild emphysematous changes with associated infectious/inflammatory bronchitis. Focal left lower lobe mucous plugging. 4. Punctate sclerotic focus apparently at the T5/T6 intervertebral disc suggestive of disc calcifications but is nonspecific. Recommend attention to this area on follow-up exam to confirm stability. 5. Pulmonary mosaic attenuation suggestive of air trapping and nonspecific small airways disease. 6. Atherosclerotic disease including coronary calcifications. Pulmonary arterial hypertension. 7. Please see separate abdomen/pelvis CT report of this same date for evaluation of the visualized upper abdominal structures. *CRE/GFR POC DEVICE Collected: 09/08/2017 Status: F Source: [facility] 12:14 PM [facility] REPOSITORY TYPE CODE TESTS RESULT OUT OF REFERENCE UNITS RANGE LAB CREPC 0.50-1.20 mg/dL Creatinine (poc 0.90 device) LAB GFRPC >60 mL/min/1.7 3 sq m est GFR, (poc device) >60 US GUIDED BIOPSY Observed: 09/04/2017 Status: F Source: [facility] BREAST RIGHT 1:37 PM [facility] REPOSITORY EXAM: US GUIDED BIOPSY BREAST RIGHT, 09/02/2017 15:15 PM PRE-PROCEDURE DIAGNOSIS: 71-year-old female with known right breast carcinoma undergoing ultrasound-guided biopsy of a suspicious structure in the right breast 10-11 o'clock. POST-PROCEDURE DIAGNOSIS: 71-year-old female with known right breast carcinoma undergoing ultrasound-guided biopsy of a suspicious structure in the right breast 10-11 o'clock. PERFORMING PHYSICIAN: Sunny Mcpherson MD DIRECTOR CHILD ABUSE THERAPY: Sacha Miller MD COMPARISON: September 02, 2017, September 01, 2017, August 19, 2017. FINDINGS: Consent: Following a thorough discussion of the risks, benefits and alternatives of the procedure written informed consent was obtained. Time out was performed. Position: The patient was placed in a supine position on the US table and a preliminary scan was obtained. The abnormality again identified in the right breast. The deeper tissues of the breast adjacent biopsy site were further anesthetized with a 1% lidocaine solution containing epinephrine. Preparation: The patient's skin was cleansed, and the skin and subcutaneous tissues anesthetized with 1% buffered lidocaine solution. Procedure: A small chase was placed in the skin with a #11 scalpel. An 8-gauge vacuum-assisted biopsy device was inserted into the target area. Multiple core samples were obtained. A Mammostar biopsy clip was positioned into the site. The biopsy device was removed and handheld pressure was applied. The estimated blood loss is none. The patient tolerated the procedure well without evidence of immediate complications. Post-procedure: A right digital mammogram in the ML and CC projections was submitted for review. This demonstrates biopsy clip in appropriate position. IMPRESSION: Technically successful ultrasound-guided biopsy of the breast. 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 This result is concordant with the imaging. Sunny Mcpherson MD was in the room and participated during all cooper portions of this procedure. I personally viewed and interpreted these images and I have reviewed and approved this report. ICAL PATHOLOGY Observed: 09/04/2017 Status: F Source: [facility] 9:32 AM [facility] REPOSITORY Surgical Pathology Report Patient Name: [facility]URYS DIAZ [facility]. Rec #: [id number] Submitting Physician: THOMAS VALENTIN --- Clinical History --- Request for second opinion consultation by Dr. Thomas Valentin. Please review breast slides from outside institution. Dr. Valentin Preoperative Diagnosis: Rt breast mass/Rt axilla lymph node enlargement. ---Final Pathologic Diagnosis--- Outside Slides [id number] (08/19/17) A. Right breast, core biopsy: - Invasive ductal carcinoma, grade 2 (score: tubule 3, nuclear 2, mitotic 1), 0.8 cm in greatest length Manual immunohistochemical quantification using stains performed at the outside institution on the invasive carcinoma: Estrogen Receptor: positive (99%, strong intensity) Progesterone Receptor: positive (20%, moderate intensity) HER2: positive (Score 3+) Submitted controls show appropriate reactivity. Comment: Submitted immunostain of E-cadherin shows strong membranous staining, supporting the ductal differentiation. B. Right axilla lymph node, core biopsy: - Metastatic carcinoma involving lymph node, morphologically compatible with a breast primary, measuring 0.7 cm in greatest length bel/RACHEL:09/07/2017 Electronically Signed By Romero Stover MD, PhD 09/07/2017 13:02:08 Professional Interpretation performed at location: [address] [place] [address] ---MICROSCOPIC:--- A microscopic examination was performed. ---SPECIMEN(S) RECEIVED:--- SC A: 2nd opinion consultation, 1 case ---SLIDE/BLOCK DESCRIPTION:--- The following material(s) are received from [facility], [address] [place] [address] with an identifying Surgical Pathology Report, along with the [facility] report [id number]: 5 H&E, 8 non-H&E and 4 unstained (A1) slides, including ER, NM and HER2, and 2 paraffin blocks (A,B) labeled [id number]. Outside materials are returned in sixty (60) days under separate cover with our number recorded on them. Performed By: #### SURGP #### [facility] [address] [place] [address] SURGICAL PATHOLOGY Observed: 09/02/2017 Status: F Source: [facility] 6:28 PM [facility] REPOSITORY Surgical Pathology Report Patient Name: [facility] DIAZ [facility]. Rec #: [id number] Submitting Physician: RUBY GORE --- Clinical History --- Clinical History: Newly diagnosed right breast cancer, second suspicious lesion, R/O cancer. Associated Diagnosis: Malignant neoplasm of overlapping sites of right breast in female, estrogen receptor positive [ICD10 C50.811, Z17.0]. 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 ---Final Pathologic Diagnosis--- A. Right breast, 10-11 o'clock subareolar, ultrasound-guided vacuum-assisted biopsy: - Ductal carcinoma in situ (DCIS), low nuclear grade, cribriform pattern, 0.2 cm in greatest length - Lobular carcinoma in situ (LCIS) Manual immunohistochemical quantification using stains performed at [facility] (block A1): Estrogen Receptor: Positive (100%, strong intensity) Progesterone Receptor: Positive (70%, moderate intensity) Comment: Additional immunohistochemical stains (on block A1) show that foci of DCIS are positive for E-cadherin and p120, and foci of LCIS are negative for E-cadherin and p120 (cytoplasmic), supporting the diagnosis. [id number]:09/04/2017 Electronically Signed By Bradley Mccray M.D. 09/04/2017 13:30:04 Professional Interpretation performed at location: [address] [place] [address] ---MICROSCOPIC:--- All controls show appropriate reactivity. Estrogen receptor (ER) and progesterone receptor (NM) are evaluated by manual quantitative immunohistochemistry on formalin-fixed (for >6 hours and <72 hours if possible), paraffin-embedded tissue, using clone [id number] ([place]) for ER, clone [id number] ([place]) for NM, and Leica/Mitchell polymer detection system on a Leica/Mitchell or DAKO auto-stainer. For both ER and NM, the percentage of positive tumor cell nuclei is determined; <1% considered negative, and d1% positive. For both ER and NM, the overall intensity of staining in the tumor is categorized as weak, moderate, or strong. If the specimen has been decalcified, exceeds cold-ischemic time, or is outside the recommended range for formalin fixation time, the results should be interpreted with caution. This assay has not been validated for decalcified specimens, cytology specimens, and specimens in which the cold ischemic time/fixation time is unknown. All immunohistochemistry, in situ hybridization, and histochemical tests were developed by and are performed at the [facility], [address] [place] [address]. All tests reported here, except those addressing HER2 overexpression as a predictive marker, have not been cleared by or approved by the US Food and Drug Administration (FDA). The laboratory is regulated under CLIA as qualified to perform high-complexity testing. The tests are used for clinical purposes. They should not be regarded as investigational or for research. References: Arch Pathol Lab Med. 2009;134(6):907-22 ---SPECIMEN(S) RECEIVED:--- SBX A: Breast, needle or small BX ---GROSS DESCRIPTION:--- The specimen is received in one properly labeled container with the patient's name and accession number. A. The specimen is designated US-guided vac-assisted right breast Bx at 10-11 o'clock subareolar and consists of two yellow- garcia fibroadipose tissue cores measuring 2.0 cm in length and 0.5 cm in diameter each. TE 1 Time of specimen removal from patient: 09/02/2017 at 1512 Time specimen placed in formalin: 09/02/2017 at 1512 Cold Ischemia Time: 0 minutes Time specimen removed from formalin: 09/02/2017 at 22:50 Total Fixation Time: 7 hours 38 minutes Lab Use Only: JobID [id number] Gross description by: Diana Rust Performed By: #### SURGP #### [place] [address] US BREAST LIMITED Observed: 09/02/2017 Status: F Source: [facility] BILATERAL 12:38 PM [facility] REPOSITORY EXAM: MAMMO DIAGNOSTIC WITH GRAZYNA BILATERAL, US BREAST LIMITED BILATERAL, 09/02/2017 10:47 AM CLINICAL INDICATIONS: The patient is a 71-year-old female with recent diagnosis of right breast invasive carcinoma with metastatic adenopathy presenting for a second opinion. COMPARISON: Bilateral mammogram one 2013 and bilateral mammogram July 22, 2017 as well as right breast ultrasound August 13, 2017 and right breast ultrasound guided biopsy and post biopsy mammogram August 19, 2017. MAMMOGRAM TECHNIQUE: 2-D MLO and CC views were obtained of the bilateral breasts. 3-D MLO and CC digital tomosynthesis images were also acquired. Computer aided detection was utilized. MAMMOGRAPHIC FINDINGS: The breasts are heterogeneously dense, which may obscure small masses. Along the 9:00 axis right breast approximately 6 m from the nipple, related hyperdense mass is identified correlating with the known carcinoma. A coil-shaped biopsy clip is noted along the lateral margin of the mass. Second mass with associated amorphous calcifications is noted approximately the 12:00 position 2 cm from the nipple measuring about 0.8 cm and is further evaluated with the below ultrasound. Focal asymmetry is identified within the lateral left breast along the 3:00 axis 9.5 cm from the nipple. There are scattered benign-appearing calcifications bilaterally. Right adenopathy again noted. ULTRASOUND TECHNIQUE: Multiple real-time shin-scale images of bilateral breast were obtained. Color Doppler was used to assess vascular flow. ULTRASOUND FINDINGS: Right breast: At the 9:00 position zone 2-3 known carcinoma is identified measuring 2.5 x 2.2 x 2.0 cm. Biopsy clip is noted along the lateral margin of the mass. At the 10 to 11:00 position subareolar region right breast, there is a irregular hypoechoic mass with associated calcifications measuring is 0.7 x 0.5 x 0.8 cm approximately 3.5 cm from the nipple. This mass is approximately 3.5 cm medial to the known carcinoma. Structure labeled 3 at the 10 to 11:00 position subareolar region right breast is a anechoic cyst measuring about 0.7 cm. Left breast: Structure one at the 4:00 position zone 3 is an ovoid circumscribed hypoechoic structure measuring 0.5 x 0.2 x 0.3 cm about 9.9 cm from the nipple. Structure 2 at the 4:00 position zone 1 was incidentally noted and is an ovoid mixed echogenic structure with anechoic components measuring 1.4 x 0.5 x 1.8 cm approximately 5.6 cm from the nipple. IMPRESSION: 1. Known carcinoma at the 9:00 position mid to posterior depth right breast. Biopsy clip is just lateral to the mass. Right axillary adenopathy also noted. No biopsy clip is identified within the lymph nodes. 2. Suspicious structure identified within the right breast at the 10 to 11:00 position subareolar region labeled structure 2 on this study for which ultrasound guided biopsy is recommended. 3. 2 probably benign structures identified within the left breast for which repeat ultrasound may be obtained in 6 months. BI-RADS: 4: Suspicious Recommendation: Tissue diagnosis. Recommendation Laterality: Right O DIAGNOSTIC WITH Observed: 09/02/2017 Status: F Source: [facility] GRAZYNA BILATERAL 12:38 PM [facility] REPOSITORY EXAM: MAMMO DIAGNOSTIC WITH GRAZYNA BILATERAL, US BREAST LIMITED BILATERAL, 09/02/2017 10:47 AM CLINICAL INDICATIONS: The patient is a 71-year-old female with recent diagnosis of right breast invasive carcinoma with metastatic adenopathy presenting for a second opinion. COMPARISON: Bilateral mammogram one 2013 and bilateral mammogram July 22, 2017 as well as right breast ultrasound August 13, 2017 and right breast ultrasound guided biopsy and post biopsy mammogram August 19, 2017. MAMMOGRAM TECHNIQUE: 2-D MLO and CC views were obtained of the bilateral breasts. 3-D MLO and CC digital tomosynthesis images were also acquired. Computer aided detection was utilized. MAMMOGRAPHIC FINDINGS: The breasts are heterogeneously dense, which may obscure small masses. Along the 9:00 axis right breast approximately 6 m from the nipple, related hyperdense mass is identified correlating with the known carcinoma. A coil-shaped biopsy clip is noted along the lateral margin of the mass. Second mass with associated amorphous calcifications is noted approximately the 12:00 position 2 cm from the nipple measuring about 0.8 cm and is further evaluated with the below ultrasound. Focal asymmetry is identified within the lateral left breast along the 3:00 axis 9.5 cm from the nipple. There are scattered benign-appearing calcifications bilaterally. Right adenopathy again noted. ULTRASOUND TECHNIQUE: Multiple real-time shin-scale images of bilateral breast were obtained. Color Doppler was used to assess vascular flow. ULTRASOUND FINDINGS: Right breast: At the 9:00 position zone 2-3 known carcinoma is identified measuring 2.5 x 2.2 x 2.0 cm. Biopsy clip is noted along the lateral margin of the mass. At the 10 to 11:00 position subareolar region right breast, there is a irregular hypoechoic mass with associated calcifications measuring is 0.7 x 0.5 x 0.8 cm approximately 3.5 cm from the nipple. This mass is approximately 3.5 cm medial to the known carcinoma. Structure labeled 3 at the 10 to 11:00 position subareolar region right breast is a anechoic cyst measuring about 0.7 cm. Left breast: Structure one at the 4:00 position zone 3 is an ovoid circumscribed hypoechoic structure measuring 0.5 x 0.2 x 0.3 cm about 9.9 cm from the nipple. Structure 2 at the 4:00 position zone 1 was incidentally noted and is an ovoid mixed echogenic structure with anechoic components measuring 1.4 x 0.5 x 1.8 cm approximately 5.6 cm from the nipple. IMPRESSION: 1. Known carcinoma at the 9:00 position mid to posterior depth right breast. Biopsy clip is just lateral to the mass. Right axillary adenopathy also noted. No biopsy clip is identified within the lymph nodes. 2. Suspicious structure identified within the right breast at the 10 to 11:00 position subareolar region labeled structure 2 on this study for which ultrasound guided biopsy is recommended. 3. 2 probably benign structures identified within the left breast for which repeat ultrasound may be obtained in 6 months. BI-RADS: 4: Suspicious Recommendation: Tissue diagnosis. Recommendation Laterality: Right MAMM DIAG W/CAD IF Observed: 08/19/2017 Status: F Source: [facility] PERFORMED RT 10:32 AM [facility] REPOSITORY Exam Date/Time: 08/19/2017 10:46 EDT Reason for Exam: S/P Rt Breast Mass Bx w/clip placement;Mass Report RIGHT DIGITAL DIAGNOSTIC MAMMOGRAMS WITH CAD-POST BIOPSY FINDINGS: The right breast is examined in the CC, ML, and exaggerated CC projections. The biopsy clip is seen, within the area of architectural distortion in the upper-outer quadrant of the right breast. An enlarged right axillary lymph node is also seen. IMPRESSION: Documentation of right breast mass biopsy clip. BI-RADS 4 - Findings demonstrate a suspicious abnormality. Assessment / Recommendation: M-P Post procedure mammogram for marker placement - no recommendation required Breast density: Heterogeneously Dense FINAL REPORT Dictated: 08/19/2017 5:27 pm Ming Castrejon MD Signed (Electronic Signature): 08/21/2017 1:37 pm Signed by: Ming Castrejon MD Technologist: SYLVIA Assessment: BI-RADS Category Post procedure mammograms for marker placement Recommendation: No recommendation required US BX BREAST/PLCMT LOCAL Observed: 08/19/2017 Status: F Source: [facility] DEV/SPEC IMAGE/ 9:58 AM [facility] REPOSITORY Exam Date/Time: 08/19/2017 10:24 EDT Reason for Exam: RIGHT BREAST MASS AND RT AXILLARY LYMPH NODE Report 1. PERCUTANEOUS VACUUM ASSISTED BIOPSY RIGHT BREAST MASS UNDER ULTRASOUND GUIDANCE HISTORY: Irregular spiculated hypoechoic solid mass at the 9-o'clock position 7 cm from the nipple. PROCEDURE: The breast was sterilely prepped and draped. Local anesthesia was given with 2% Xylocaine. Under ultrasound guidance, multiple vacuum assisted core biopsies were obtained, utilizing a 13-gauge Mammotome needle. Adequate samples were obtained and have been submitted to pathology. 2. CORE BIOPSIES RIGHT AXILLARY LYMPH NODE UNDER ULTRASOUND GUIDANCE There are two lobulated hypoechoic enlarged right axillary lymph nodes, located 7 cm superior and lateral to the 9-o'clock breast mass. Aseptic precautions were taken. 2% Xylocaine was used for local anesthesia. Under ultrasound guidance, two core biopsies were obtained, utilizing an 18- gauge needle. Adequate samples of the lymph nodes were obtained. IMPRESSION: Core biopsies right axillary lymph nodes. FINAL REPORT Dictated: 08/19/2017 5:25 pm Ming Castrejon MD Signed (Electronic Signature): 08/19/2017 5:25 pm Signed by: Ming Castrejon MD Technologist: ELLEN, IMMUNOHISTOCHEMISTRY Observed: 08/19/2017 Status: F Source: MAE 9:33 AM [facility] REPOSITORY At the request of Dr. Sheila Marie, [facility] path performed IHC. 08/22/17 Patient: NURYS DIAZ : 1945 (71/F) Acct Num: [id number] Phys: Feliciano Herzog MD Unit Num: [id number] Loc: LABSPEC Specimen: [id number] Received: 08/22/17945 Spec Type: IMMUNO TISSUES TISSUES: Right breast, NOS SPECIMEN INFORMATION: Tissue Source: Right breast mass, core biopsy Clinical Info: Right breast mass R92.8 Specimen Number: [id number] CPT code: 45770, 13275 x4 , 33801 x3 METHODOLOGY: Deparaffinized sections of prefer/formalin-fixed tissue or PAP/DQ stained slides are incubated with monoclonal/polyclonal antibodies/oligonucleotide probes. Localization is made via biotin free immunoperoxidase method. Appropriate controls are performed and reacted as expected. Results on target cell population are indicated in the following table: RESULTS: ANTIBODY / CLONE RESULT CK8 ([id number]) positive E-Cad (ECH-6) positive Ki-67 (30-9) positive, moderate CK5-6 (D5 AND 1684) negative P53 (DO-7) positive, weak, a few cells MORPHOMETRIC ANALYSIS ER (clone 6F11) >95%, strong NM (clone 16/1E2) 21%, moderate Her-2Neu (clone CB11) 3+ The prognostic test for HER2 is performed on formalin-fixed paraffin embedded tissue. A 3+ (positive) staining pattern is defined as intense, homogeneous, complete, circumferential membranous staining in >10% of contiguous tumor cells. A similar weak (2+) staining pattern is interpreted as equivocal. AURELIO follow- up testing is recommended for all equivocal cases. Positivity/negativity for ER/ NM is reported if > or < 1% of the tumor cells are immuno- reactive, respectively. The ASCO/CAP criteria is used for scoring. Reference: Journal of Clinical Oncology, 2013; 31:2952-3043 AND 2010; 16:2784- 2795. Duration of fixation : 9 Hrs; Sample Adequate: Yes. These assays have not been validated on decalcified tissues. Results should be interpreted with caution given the likelihood of false negativity on decalcified specimens. These tests were developed and their performance characteristics determined by [facility]. They may not have been cleared or approved by the U.S. Food and Drug Administration. The FDA has determined that such clearance or approval is not necessary. INTERPRETATION: Right breast, core biopsy: Invasive ductal carcinoma. Positive for estrogen receptors (favorable prognostic indicator). Positive for progesterone receptors (favorable prognostic indicator). Positive for overexpression of ARE1pur. SJ:say 08/22/17 PHYSICIAN AND INSTITUTION [place] [address] Treating Physician: Danna Asher DO Signed Zohaib Johnsonin 08/22/17 <signature on file> Performed By: #### PIMM #### [facility] [address] [place], [address] US BREAST UNILATERAL Observed: 08/13/2017 Status: F Source: [facility] RT LIMITED 1:20 PM [facility] REPOSITORY Exam Date/Time: 08/13/2017 13:45 EDT Reason for Exam: RIGHT BREAST ABN MAMMO 07/30/2017 Report ULTRASOUND RIGHT BREAST LIMITED HISTORY: Abnormal mammogram of 07/30/2017. FINDINGS: There is an irregular, spiculated hypoechoic solid mass lesion at the 9 o'clock position 7 cm from the nipple measuring 2.5 x 1.7 x 1.8 cm in size suspicious for a neoplastic lesion. In addition enlarged lymph nodes are seen in the axilla, one measuring 1.9 x 0.7 cm and the other with a rounded appearance, measuring 0.8 x 1.1 cm. IMPRESSION: Highly suspicious mass lesion at the 9 o'clock position with axillary lymphadenopathy. Core biopsies of the mass as well as lymph nodes recommended. BI-RADS Category 4: Suspicious. Assessment / Recommendation: 4-3 Histology using core biopsy Recall interval: Now FINAL REPORT Dictated: 08/13/2017 4:19 pm Ming Castrejon MD Signed (Electronic Signature): 08/13/2017 4:19 pm Signed by: Ming Castrejon MD Technologist: ELLEN WEISS MAMM SCREEN W/CAD Observed: 07/30/2017 Status: F Source: [facility] IF PERFORMED BILAT 1:42 PM [facility] REPOSITORY Exam Date/Time: 07/30/2017 13:57 EST Reason for Exam: SCREENING Report BILATERAL DIGITAL SCREENING MAMMOGRAM, CAD: REASON FOR EXAM: SCREENING. COMPARISON: 06/08/2013, 11/04/2001, and 10/08/2000. TECHNIQUE: Bilateral craniocaudal and mediolateral oblique projections were obtained with additional CAD evaluation. FINDINGS: BREAST COMPOSITION: Heterogeneous fibroglandular tissue density pattern is noted which can obscure small masses. There are bilateral areas of benign-appearing calcification and focal areas of glandular asymmetry seen. Right axillary travis densities are present. A left skin lesion with ring marker is present. There is a new asymmetrical density of approximately 24 x 21 mm with architectural distortion in the mid/posterior outer aspect of the right breast. This warrants additional focal mammographic and ultrasound evaluation. IMPRESSION: New or developing asymmetrical density with architectural distortion in the upper outer posterior aspect of the right breast warranting additional diagnostic mammogram and ultrasound evaluation. BI-RADS 0 - Need additional imaging evaluation at this time. OVERALL ASSESSMENT- NEED ADDITIONAL IMAGING EVALUATION. A letter of notification will be sent to the patient regarding the results. Assessment / Recommendation: 0-3 Spot compression Breast density: Heterogeneously Dense Exam Date/Time: 07/30/2017 13:57 EST Report Recall interval: Now FINAL REPORT Dictated: 07/30/2017 3:37 pm Rayo Beauchamp DO Signed (Electronic Signature): 07/30/2017 3:37 pm Signed by: Rayo Beauchamp DO Technologist: LC Assessment: BI-RADS Category 0-Incomplete: Need additional imaging evaluation Recommendation: Spot compression ALLERGIES ALLERGIES DATE TYPE / CODE NAME / CODE REACTION SEVERITY SOURCE 06/17/2018 Drug No Known Unknown [facility] Allergy/416 Allergies/F70156 Hospital 766778(SNOM 0388(RXNORM) Repository ED CT) Drug/202479 No Known Confucianism 003(SNOMED Allergies [facility] CT) System Repository ENCOUNTERS ENCOUNTERS ADMIT/DISCHARGE ACCOUNT NUMBER ADMITTING ENCOUNTER LOCATION SOURCE CLASS 06/23/2018 [id number] Ambulatory [place] [facility] ding:SOLIS Repository 06/17/2018 [id number] Ambulatory [facility]: [facility] Repository 06/10/2018 [id number] Ambulatory [facility]: [facility] Repository 06/05/2018 [id number] Religion, Ambulatory [facility] ding:[facility] Repository 06/05/2018 [id number] Ambulatory BMSBuilding: [place] BMS.CF[facility] Repository 06/05/2018 [id number] Ambulatory [address] [place] [address] Repository 06/04/2018 [id number] Ambulatory BMSBuilding: [place] BMS.CF.[facility] Repository 06/03/2018 [id number] Ambulatory BMSBuilding: [place] [facility]MS.[facility] Repository 06/01/2018 [id number] Ambulatory [facility]MSBuilding: [facility] Repository 05/28/2018 [id number] Ambulatory [facility]: [facility] Repository 05/20/2018 [id number] Ambulatory [facility]Building: [facility] Repository 05/19/2018 [id number] Ambulatory Building:[facility] Repository 05/19/2018 [id number] Ambulatory Building:[facility] Repository 05/19/2018 [id number] Ambulatory Building:[facility] Repository 05/14/2018 [id number] Ambulatory BMSBuilding: [place] [facility]MS[facility] Repository 05/12/2018 [id number] Ambulatory BMSBuilding: [place] [facility] Repository 05/12/2018 [id number] Ambulatory [facility] ding:OPBD Repository 05/07/2018 [id number] Ambulatory [facility]MSBuilding: [facility] Repository 04/28/2018 [id number] Ambulatory Building:[facility] Repository 04/28/2018 [id number] Ambulatory Building:[facility] Repository 04/21/2018 [id number] Ambulatory Building:[facility] Repository 04/09/2018 [id number] Ambulatory Building:[facility] Repository 04/02/2018 [id number] Ambulatory Building:[facility] Repository 03/25/2018/03/26/20 [id number] HOMERO, Ambulatory Building:[address]: [place] [address]Bed: A [facility] Repository 03/20/2018 [id number] Ambulatory B[facility]Building: [place] [facility] Repository 03/20/2018 [id number] Ambulatory [facility] ding:[facility] Repository 03/12/2018 [id number] Ambulatory Building:[facility] Repository 03/12/2018 [id number] Ambulatory Building:[facility] Repository 03/12/2018 [id number] Ambulatory Building:[facility] Repository 03/12/2018 [id number] Ambulatory Building:[facility] Repository 03/10/2018 [id number] Ambulatory [facility] ding:RAD Repository 03/10/2018 [id number] Ambulatory [facility]MSBuilding: [facility] Repository 02/24/2018 [id number] Ambulatory [facility]MSBuilding: [facility] Repository 02/19/2018 [id number] Ambulatory Building:[facility] Repository 02/19/2018 [id number] Ambulatory Building:[facility] Repository 02/19/2018 [id number] Ambulatory Building:[facility] Repository 02/12/2018 [id number] White, Lindsay Ambulatory BMSBuilding: [place] BMS.[facility] Repository 02/12/2018/02/17/20 [id number] White, Lindsay Inpatient [place] [address] ding:[facility] Repository : GIS632Nrr: 1 02/12/2018 [id number] White, Lindsay Ambulatory BMSBuilding: [facility] BMS.[facility] Repository 02/12/2018 [id number] White, Lindsay Ambulatory BMSBuilding: [place] BMS.CF[facility] Repository 02/12/2018 [id number] White, Lindsay Ambulatory BMSBuilding: [facility] BMS.[facility] Repository 02/12/2018 [id number] White, Lindsay Ambulatory BMSBuilding: [facility] Repository 02/12/2018 [id number] White, Lindsay Ambulatory BMSBuilding: [facility] BMS.[facility] Repository 02/12/2018 [id number] White, Lindsay Ambulatory BMSBuilding: [place] [facility] Repository 02/12/2018 [id number] White, Lindsay Ambulatory BMSBuilding: [facility] BMS.[facility] Repository 02/10/2018 [id number] Ambulatory [facility] ding:[facility] Repository 02/09/2018 [id number] Ambulatory BMSBuilding: [place] BMS.CF.[facility] Repository 02/03/2018 [id number] Ambulatory BMSBuilding: [facility] Repository 01/27/2018 [id number] Ambulatory BMSBuilding: [place] BMS.CF.[facility] Repository 01/13/2018 [id number] Ambulatory BMSBuilding: [place] BMS.CF.[facility] Repository 01/06/2018 [id number] Ambulatory [facility] ding:[facility] Repository 01/06/2018 [id number] Ambulatory BMSBuilding: [facility] Repository 01/06/2018 [id number] Ambulatory BMSBuilding: [place] BMS.[facility] Repository 01/01/2018 [id number] Ambulatory Building:[facility] Repository 12/22/2017 [id number] Ambulatory BMSBuilding: [place] BMS.[facility] Repository 12/15/2017 [id number] Ambulatory BMSBuilding: [place] BMS.[facility] Repository 12/01/2017 [id number] Ambulatory BMSBuilding: [place] BMS.CF.[facility] Repository 11/24/2017 [id number] Ambulatory BMSBuilding: [facility] BMS.[facility] Repository 11/10/2017/11/11/19 [id number] Ambulatory BMSBuilding: [facility] BMS.[facility] Repository 11/07/2017 [id number] Ambulatory BMSBuilding: [place] BMS.[facility] Repository 11/06/2017/11/07/19 [id number] Ambulatory BMSBuilding: [facility] BMS.[facility] Repository 10/30/2017 [id number] Ambulatory BMSBuilding: [facility] BMS.[facility] Repository 10/28/2017 [id number] Ambulatory BMSBuilding: [place] BMS.CF.[facility] Repository 10/28/2017 [id number] Ambulatory BMSBuilding: [place] BMS.CF.[facility] Repository 10/28/2017/10/29/19 [id number] Ambulatory [address] ding:[facility] Repository 10/24/2017 [id number] Ambulatory [facility] ding:[place] Repository 10/24/2017/10/25/19 [id number] Ambulatory BMSBuilding: Mae 18 BMS.[facility] Repository 10/22/2017 [id number] Ambulatory BMSBuilding: Mae BMS.CF.[facility] Repository 10/15/2017 [id number] Ambulatory Building:[facility] Repository 10/13/2017 [id number] Ambulatory Building:[facility] Repository 10/09/2017 [id number] Ambulatory Building:[facility] Repository 10/09/2017 [id number] Ambulatory Building:[facility] Repository 09/25/2017 [id number] Ambulatory Building:[facility] Repository 09/25/2017 [id number] Ambulatory Building:CT4 [facility] Repository 09/09/2017 [id number] Ambulatory Building:[facility] Repository 09/08/2017 [id number] Ambulatory Building:[facility] Repository 09/08/2017 [id number] Ambulatory Building:[facility] Repository 09/08/2017 [id number] Ambulatory Building:[facility] Repository 09/08/2017 [id number] Ambulatory Building:[facility] Repository 09/02/2017 [id number] Ambulatory Building:[facility] Repository 09/02/2017 [id number] Ambulatory Building:[facility] Repository 09/02/2017 [id number] Ambulatory Building:[facility] Repository 09/02/2017 [id number] Ambulatory Building:[facility] Repository 09/02/2017 [id number] Ambulatory Building:[facility] Repository 09/01/2017 [id number] Ambulatory Building:[facility] Repository 08/19/2017/08/20/19 [id number] Andrei Asher [facility] ding:[facility] Repository 08/19/2017 [id number] Ambulatory [facility] ding:[facility] 08/19/2017 [id number] Ambulatory Building:[facility] Repository 08/19/2017 [id number] Ambulatory Building:[facility] Repository 08/13/2017/08/14/19 [id number] Romana, Ambulatory Confucianism Confucianism [address] [place] [address] ding:[facility] Repository 08/13/2017 [id number] Ambulatory Building:[facility] Repository 07/30/2017/07/30/19 [id number] Romana, Ambulatory Confucianism Confucianism [address] [place] [address] ding:[facility] Repository 07/30/2017 [id number] Ambulatory Building:[facility] Repository PAYERS PAYERS ENCOUNTER GUARANTOR PAYER SUBSCRIBER SOURCE 06/23/2018 NURYS Lazaro Primary NURYS [id number] Insurance:HENRRY RODRÍGUEZ: Community [address] [address] [id number] [place], [place] [address]Cbr: ADVANTAPolicy Number: Repository [id number] (HP) Date:7277-16-91NM [address] [place] [address] 35400PN: 06/23/2018 Secondary NURYS B Mae Insurance:CHEMO SPRANGDOB: [facility] [id number] Hospital Number: Repository [id number] Date:2017-10-16 06/23/2018 Tertiary NOT GIVENUNK Mae Insurance:SELF PAY [facility] Number: Effective Repository Date:2017-10-16 06/17/2018 NURYS B Primary NURYS B Mae [id number] CR Insurance:ANTHEM SPRANGDOB: Community [address] [address] [id number] [place], [place] [address]Xky: ADVANTAPolicy Number: Repository [id number] (HP) Date:7329-95-01KN [address] [place] [address] [place] [address]UO: 06/17/2018 Secondary NOT GIVENUNK Mae Insurance:SELF PAY [facility] Number: Effective Repository Date:2018-06-17 06/10/2018 NURYS B Primary NURYS B Mae [id number] CR Insurance:ANTHEM SPRANGDOB: Community [address] [address] [id number] [place], [place] [address]Rps: ADVANTAPolicy Number: Repository [id number] (HP) Date:4712-68-52TE [address] [place] [address] 92943DA: 06/10/2018 Secondary NOT GIVENUNK Mae Insurance:SELF PAY [facility] Number: Effective Repository Date:2018-06-10 06/05/2018 NURYS B Primary NURYS B Confucianism SPRANGDOB: Insurance:ANTHEMPolicy SPRANGDOB: [facility] Number: Effective [id number] [facility] RO[address] Date:2018-05-20 [facility] Repository [address] [place] [address] [id number] Name:CD:[id number] [facility] [address]Aqi: [id number], [place] [address]Dbo: 159[address]KE: (855) (HP) [phone] (HP) () 06/05/2018 NURYS Lazaro Primary NURYS [place] [id number] CR Insurance:[facility] ERB: Community [address] [address] [id number] Hospital , [place] [address]Mkk: ADVANTAPolicy Number: Repository [id number] () Date:8792-44-84JM [address] [place] [address] 63014EV: 06/05/2018 Secondary NOT GIVENUNK [place] Insurance:SELF PAY [facility] Number: Effective Repository Date:2018-06-05 06/05/2018 NURYS Primary NURYS D[facility]DOB[facility] Insurance:[facility] [id number] Hospitals Number: [address] [place] [address] [id number] [address] [place] [address] Date:Plan Name:[facility] [id number]: , [place] [id number]: (UI) () 06/04/2018 NURYS Lazaro Primary NURYS [place] [id number] CR Insurance:[facility]: Community [address] [address] [id number] [place] [address]Hso: ADVANTAPolicy Number: Repository [id number] () Date:8193-41-76NU [address] [place] [address] 78202LO: 06/04/2018 Secondary NOT GIVENUNK Mae Insurance:SELF PAY [facility] Number: Effective Repository Date:2018-06-04 06/03/2018 NURYS Lazaro Primary NURYS [place] [id number] CR Insurance:[facility]: Community [address] [address] [id number] [place], [place] [address]Sms: ADVANTAPolicy Number: Repository [id number] (HP) Date:6394-88-88XG [address] [place] [address] 37105YL: 06/03/2018 Secondary NOT GIVENUNK [place] Insurance:SELF PAY [facility] Number: Effective Repository Date:2018-06-03 06/01/2018 NURYS Lazaro Primary NURYS Lazaro Mae [id number] CR Insurance:ANTHEM SPRANGDOB: Community [address] [address] [id number] [place], [place] [address]Leb: ADVANTAPolicy Number: Repository [id number] (HP) Date:4288-14-87HG [address] [place] [address] 23796AF: 06/01/2018 Secondary NOT GIVENUNK Mae Insurance:SELF PAY [facility] Number: Effective Repository Date:2018-06-01 05/28/2018 NURYS Lazaro Primary NURYS Lazaro Mae [id number] CR Insurance:ANTHEM SPRSANDRINEDOB: Community [address] [address] [id number] [place], [place] [address]Gih: ADVANTAPolicy Number: Repository [id number] (HP) Date:7959-46-71MB [address] [place] [address] 04597AH: 05/28/2018 Secondary NOT GIVENUNK Mae Insurance:SELF PAY [facility] Number: Effective Repository Date:2018-05-28 05/20/2018 NURYS B Primary NURYS Lazaro [place] [id number] CR Insurance:ANTHEM SPRANGDOB: Community [address] [address] [id number] [place], [place] [address]Xbq: ADVANTAPolicy Number: Repository [id number] (HP) Date:5749-92-37CL [address] [place] [address] 28153TC: 05/20/2018 Secondary NOT GIVENUNK [place] Insurance:SELF PAY [facility] Number: Effective Repository Date:2018-05-20 05/19/2018 NURYS Lazaro Primary NURYS Lazaro [facility]: Insurance:MEDICARE SPRANGDOB: [place] [facility] [place] [id number] [place] [address] [address] PP[address]ol[address] Number: [address] [facility]5[place] [id number] [address] [place] [address], Repository , [place] [address]Fmm: Date:2044-58-06Yzlb [place] [address]Ffw: Name:CARE () (HP) 05/19/2018 NURYS B Primary [facility] Insurance:MEDICARE SPRANGDOB: [place] [facility] [place] [id number] [place] [address] [address] PP[address]olicy Number: [address] [place] [address] [id number] [address] [place] [address], [facility] [place] , [place] [address]Bsj: Date:7781-58-29Mqdp [place] [address]Bxh: Name:CARE (HP) (HP) 05/19/2018 NURYS B Primary NURYS Lazaro [facility]: Insurance:MEDICARE SPRANGDOB: [place] [facility] [place] [id number] [place] [address] PP[address]olicy Number: [address] [place] [address] [id number] [address] [place] [address], Repository , [place] [address]Ndk: Date:6012-94-66Hibf [place] [address]Uaq: Name:CARE (HP) (HP) 05/14/2018 NURYS B Primary NURYS Lazaro [facility]2740 CR Insurance:[facility]: Community [address] [address] [id number] [place], [place] [address]Jlx: ADVANTAPolicy Number: Repository [id number] (HP) Date:5317-29-43VY ALEX ALEGRIA [address]JU: 05/14/2018 Secondary NOT GIVENUNK [place] Insurance:SELF PAY [facility] Number: Effective Repository Date:2018-05-14 05/12/2018 NURYS Lazaro Primary NURYS [place] [id number] CR Insurance:ANTHEM SPRANGDOB: Community [address] [address] [id number] [place] [address]Buh: ADVANTAPolicy Number: Repository [id number] (HP) Date:8704-98-10HW [address] [place] [address] 39811NW: 05/12/2018 Secondary NOT GIVENUNK Mae Insurance:SELF PAY [facility] Number: Effective Repository Date:2018-05-12 05/12/2018 NURYS Lazaro Primary NURYS Lazaro Mae [id number] CR Insurance:ANTHEM [facility]: Community [address] [address] [id number] [place] , [place] [address]Hgq: ADVANTAPolicy Number: Repository [id number] (HP) Date:6227-53-18UM [address] [place] [address] 53957RY: 05/12/2018 Secondary NOT GIVENUNK [place] Insurance:SELF PAY [facility] Number: Effective Repository Date:2018-05-07 05/07/2018 NURYS Lazaro Primary NURYS Lazaro [place] [id number] CR Insurance:ANTHEM SPRANGDOB: Community [address] [address] [id number] [facility] , [place] [address]Jvq: ADVANTAPolicy Number: Repository [id number] (HP) Date:1827-70-71SQ [address]BZ[address] [place] [place] [address] 82555QT: 05/07/2018 Secondary NOT GIVENUNK Mae Insurance:SELF PAY [facility] Number: Effective Repository Date:2018-05-07 04/28/2018 NURYS Lazaro Primary NURYS Lazaro [facility] SPRANGDOB: Insurance:MEDICARE SPRANGDOB: [place] [id number] [facility] [place] [id number] [facility] CT RD PPOPolicy Number: [address] [id number] [facility], Repository , [place] [address]Pef: Date:2088-12-97Mpsc [place] [address]Cpl: Name:CARE (HP) (HP) 04/28/2018 NURYS Iveth Primary NURYS B [facility]: Insurance:MEDICARE SPRANGDOB: [place] [facility] [place] [id number] [facility] CT RD PPOPolicy Number: [address] [facility] [id number] 1075[facility] [place], Repository , [place] [address]Hnm: Date:6942-04-68Evvd [place] [address]Ish: Name:CARE (HP) (HP) 04/21/2018 NURYS Lazaro Primary NURYS B [facility]: Insurance:MEDICARE SPRANGDOB: [place] [id number] [facility] [place] [id number] [facility] CT RD PPOPolicy Number: [address] [facility] [id number] 1075[facility], Repository , [place] [address]Jrp: Date:3232-32-13Gscv [place] [address]Psr: Name:CARE (HP) (HP) 04/09/2018 NURYS Iveth Primary NURYS B [facility]: Insurance:MEDICARE SPRANGDOB: [place] [facility] [place] [id number] [facility] CT RD PPOPolicy Number: [address] [place] [id number] 1075[facility], Repository , [place] [address]Bgv: Date:0403-02-42Hvgb [place] [address]Qvj: Name:CARE (HP) (HP) 04/02/2018 NURYS Lazaro Primary NURYS [facility]azaro [facility]: Insurance:MEDICARE SPRANGDOB: [place] [facility] [place] [id number] [facility] RD PPOPolicy Number: [address] [place] [address] [id number] [address] [place] [address], [facility] [place] , [place] [address]Lan: Date:8673-32-69Bqox [place] [address]Myw: Name:CARE (HP) (HP) 03/25/2018 NURYS Lazaro Primary NURYS Lazaro [facility]: Insurance:MEDICARE SPRANGDOB: [place] [facility] [place] [id number] [facility] RD PPOPolicy Number: [address] [place] [address] [id number] [address] [place] [address], [facility] [place] , [place] [address]Beb: Date:2111-36-62Ziaw [place] [address]Lyc: Name:CARE (HP) (HP) 03/20/2018 NURYS Lazaro Primary NURYS Wall [id number] CR Insurance:[facility]: Community [address] [address] [id number] [place] [address]Kup: ADVANTAPolicy Number: Repository [id number] (HP) Date:8180-09-90EE [address]UGB[address] [place] [place] [address] 26048LD: 03/20/2018 Secondary NOT GIVENUNK Mae Insurance:SELF PAY [facility] Number: Effective Repository Date:2018-03-20 03/20/2018 NURYS Lazaro Primary NURYS [place] [id number] CR Insurance:[facility]: Community [address] [address] [id number] [place], [place] [address]Wsy: ADVANTAPolicy Number: Repository [id number] () Date:9576-04-41XO [address]UESMBCG[address] [place] [place] [address] 98503ON: 03/20/2018 Secondary NOT GIVENUNK [place] Insurance:SELF PAY [facility] Number: Effective Repository Date:2018-03-16 03/12/2018 NURYS Lazaro Primary NURYS Lazaro [facility] NorthDOB: Insurance:MEDICARE [facility]: [place] [facility] [place] [id number] [facility] CT RD PPOPolicy Number: [address] [id number] [facility]5[place], Repository , [place] [address]Hes: Date:2955-93-86Wdye [place] [address]Xdu: Name:CARE () (HP) 03/12/2018 NURYS Iveth Primary NURYS Lazaro [facility]: Insurance:MEDICARE SPRANGDOB: [place] [facility] [place] [id number] [facility] CT RD PPOPolicy Number: [address] [facility] [id number] 1075[facility], Repository , [place] [address]Uvf: Date:6998-50-92Qpum [place] [address]Pku: Name:CARE (HP) (HP) 03/12/2018 NURYS B Primary NURYS Lazaro [facility] NorthDOB: Insurance:MEDICARE SPRANGDOB: [place] [id number] [facility] [place] [id number] [facility] CT RD PPOPolicy Number: [address] [facility] [id number] 1075[facility], Repository , [place] [address]Jvs: Date:0625-71-32Thgv [place] [address]Jmj: Name:CARE (HP) (HP) 03/12/2018 NURYS B Primary NURYS B [facility] NorthDOB: Insurance:MEDICARE SPRANGDOB: [place] [facility] [place] [id number] PPOPolicy Number: [address] [place] [address] [id number] [place] [address] , [place] [address]New: Date:6877-06-16Phxo [place] [address]Oxv: Name:[facility] () (HP) 03/10/2018 NURYS B Primary NURYS Lazaro [place] [id number] CR Insurance:[facility] ERB: Community [address] [address] [id number] [place] [address]Mdh: ADVANTAPolicy Number: Repository [id number] (HP) Date:2325-84-23PG [address] [place] [address] 58907SX: 03/10/2018 Secondary NOT GIVENUNK [place] Insurance:SELF PAY [facility] Number: Effective Repository Date:2018-03-10 03/10/2018 NURYS B Primary NURYS B [place] [id number] CR Insurance:[facility]: Community [address] [address] [id number] [place] [address]Tng: ADVANTAPolicy Number: Repository [id number] (HP) Date:9469-02-62KI [address] [place] [address] 87610PE: 03/10/2018 Secondary NOT GIVENUNK [place] Insurance:SELF PAY [facility] Number: Effective Repository Date:2018-03-10 02/24/2018 NURYS B Primary NURYS B Mae [id number] CR Insurance:[facility]: Community [address] [address] [id number] [place] [address]Wri: ADVANTAPolicy Number: Repository [id number] (HP) Date:0326-78-24MO [address] [place] [address] 95757CP: 02/24/2018 Secondary NOT GIVENUNK Mae Insurance:SELF PAY [facility] Number: Effective Repository Date:2018-02-24 02/19/2018 NURYS Lazaro Primary NURYS Lazaro [facility]: Insurance:MEDICARE SPRANGDOB: [place] [facility] [place] [id number] [facility] CT RD PPOPolicy Number: [address] [place] [address] [id number] [address] [place] [address], Repository , [place] [address]Csp: Date:7514-96-99Fckh [place] [address]Qqb: Name:CARE () (HP) 02/19/2018 NURYS Lazaro Primary NURYS Lazaro [facility]: Insurance:MEDICARE SPRANGDOB: [place] [facility] [place] [id number] [place] [address] [address] PP[address]olicy Number: [address] [place] [address] [id number] [address] [place] [address], [facility] [place] , [place] [address]Xxq: Date:8982-21-06Gkna [place] [address]Oby: Name:CARE () (HP) 02/19/2018 NURYS Lazaro Primary NURYS Lazaro [facility]: Insurance:MEDICARE SPRANGDOB: [place] [facility] [place] [id number] [place] [address] [address] PP[address]olicy Number: [address] [place] [address] [id number] [address] [place] [address], Repository , [place] [address]Hyl: Date:0676-05-11Cfmd [place] [address]Ekz: Name:CARE (HP) (HP) 02/12/2018 NURYS Lazaro Primary NURYS Lazaro [facility]2740 Insurance:[facility] ERB: Community [address] [address] [id number] [place] , [place] [address]Ame: ADVANTAPolicy Number: Repository [id number] (HP) Date:1018-01-67CW [address]NRYXDCS[address] [place] [address] 11363GQ: 02/12/2018 Secondary NOT GIVENUNK Mae Insurance:SELF PAY [facility] Number: Effective Repository Date:2018-02-12 02/12/2018 NURYS Lzaaro Primary NURYS Lazaro [place] [id number] CR Insurance:ANTHEM SPRANGDOB: Community [address] [address] 1948-07-27[facility] [place] [address]Yai: ADVANTAPolicy Number: Repository [id number] (HP) Date:5933-04-91MH [address] [place] [address] 403[address]NQ: 02/12/2018 Secondary NOT GIVENUNK [place] Insurance:SELF PAY [facility] Number: Effective Repository Date:2018-02-12 02/12/2018 NURYS Lazaro Primary NURYS Lazaro Mae [id number] CR Insurance:ANTHEM SPRANGDOB: Community [address] [address] 1948-07-27[facility] [place] [address]Suu: ADVANTAPolicy Number: Repository [id number] (HP) Date:3817-83-34HE [address] [place] [address] 10758HU: 02/12/2018 Secondary NOT GIVENUNK Mae Insurance:SELF PAY [facility] Number: Effective Repository Date:2018-02-12 02/12/2018 NURYS B Primary NURYS B Mae [id number] CR Insurance:ANTHEM SPRANGDOB: Community [address] [address] 1946-07-27[facility] [place] [address]Nys: ADVANTAPolicy Number: Repository [id number] (HP) Date:3142-22-87BM [address] [place] [address] [place] [address]ZR: 02/12/2018 Secondary NOT GIVENUNK [place] Insurance:SELF PAY [facility] Number: Effective Repository Date:2018-02-12 02/12/2018 NURYS B Primary NURYS B Mae [id number] CR Insurance:ANTHEM SPRANGDOB: Community [address] [address] 1946-07-27[facility] [place] [address]Pok: ADVANTAPolicy Number: Repository [id number] (HP) Date:4879-50-54CK [address]FORSTLV [place] [address]KQ: 02/12/2018 Secondary NOT GIVENUNK [place] Insurance:SELF PAY [facility] Number: Effective Repository Date:2018-02-12 02/12/2018 NURYS B Primary NURYS B [place] [id number] CR Insurance:HENRRY PICKENSB: Community [address] [address] 1946-07-27[facility] [place] [address]Tpj: ADVANTAPolicy Number: Repository [id number] (HP) Date:8306-81-34JL [address] [place] [address] [place] [address]QF: 02/12/2018 Secondary NOT GIVENUNK Mae Insurance:SELF PAY [facility] Number: Effective Repository Date:2018-02-12 02/12/2018 NURYS B Primary NURYS B [place] [id number] CR Insurance:HENRRY PICKENSB: Community [address] [address] 1948-07-27[facility] [place] [address]Que: ADVANTAPolicy Number: Repository [id number] (HP) Date:1312-57-35QD [address]OZOSKPI [place] [address]EQ: 02/12/2018 Secondary NOT GIVENUNK [place] Insurance:SELF PAY [facility] Number: Effective Repository Date:2018-02-12 02/12/2018 NURYS B Primary NURYS B Mae [id number] CR Insurance:HENRRY PICKENSB: Community [address] [address] 1946-07-27[facility] [place] [address]Bkh: ADVANTAPolicy Number: Repository [id number] (HP) Date:0852-82-42[address]JEAUHNB, [place] [address]IE: 02/12/2018 Secondary NOT GIVENUNK [place] Insurance:SELF PAY [facility] Number: Effective Repository Date:2018-02-12 02/12/2018 NURYS Lazaro Primary NURYS Lazaro Mae [id number] [address] Insurance:ANTHEM JOEDOB: Community [address] [facility] [id number] [place] [id number]: [employer] Number: Repository [id number] (HP) Date:[id number] [address] [place] [id number]: 02/12/2018 Secondary NOT GIVENUNK [place] Insurance:SELF PAY [facility] Number: Effective Repository Date:2018-02-12 02/10/2018 NURYS Lazaro Primary NURYS Lazaro Mae [id number] CR Insurance[facility] [address] [id number] [facility] , [place] [id number]: [employer] Number: Repository [id number] (HP) Date:[id number] [address] [place] [id number]: 02/10/2018 Secondary NOT GIVENUNK [place] Insurance:SELF PAY [facility] Number: Effective Repository Date:2018-02-10 02/09/2018 NURYS Lazaro Primary NURYS Lazaro Mae [id number] CR Insurance:ANTHEM JOEDOB: Community [address] [id number] [place] , [place] [id number]: [employer] Number: Repository [id number] (HP) Date:[id number] [address] [place] [id number]: 02/09/2018 Secondary NOT GIVENUNK [place] Insurance:SELF PAY [facility] Number: Effective Repository Date:2018-02-09 02/03/2018 NURYS Lazaro Primary NURYS Lazaro [place] [id number] CR Insurance:ANTHEM SPRANGDOB: Community [address] 1946-07-27Round [place], [place] [address]Sik: ADVANTAPolicy Number: Repository [id number] (HP) Date:7368-51-15GL [address] [place] [address] [place] [address]GN: 02/03/2018 Secondary NOT GIVENUNK Mae Insurance:SELF PAY [facility] Number: Effective Repository Date:2018-02-03 01/27/2018 NURYS B Primary NURYS B [place] [id number] CR Insurance:ANTHEM SPRANGDOB: Community [address] [id number] [place], [place] [address]Cxh: ADVANTAPolicy Number: Repository [id number] (HP) Date:6857-92-99VJ [address] [place] [address] [place] 16247OM: 01/27/2018 Secondary NOT GIVENUNK [place] Insurance:SELF PAY [facility] Number: Effective Repository Date:2018-01-27 01/13/2018 NURYS B Primary NURYS B Mae [id number] CR Insurance:ANTHEM SPRANGDOB: Community [address] [address] [id number] [place], [place] [address]Ivf: ADVANTAPolicy Number: Repository [id number] (HP) Date:6263-96-96DT [address] [place] [address] PA [address]JI: 01/13/2018 Secondary NOT GIVENUNK Mae Insurance:SELF PAY [facility] Number: Effective Repository Date:2018-01-13 01/06/2018 NURYS B Primary NURYS B Mae [id number] CR Insurance:ANTHEM [facility]: Community [address] [address] [id number] [place], [place] [address]Gbz: ADVANTAPolicy Number: Repository [id number] (HP) Date:3401-74-48GP [address]SYUMZMX [place] [address]OH: 01/06/2018 Secondary NOT GIVENUNK Mae Insurance:SELF PAY [facility] Number: Effective Repository Date:2017-12-22 01/06/2018 NURYS Lazaro Primary NURYS Lazaro Mae [id number] CR Insurance:[facility] ERB: Community [address] 1946-07-27[facility] , [place] [address]Oxo: ADVANTAPolicy Number: Repository [id number] (HP) Date:8677-87-99TC [address] [place] [address] 738[address]LK: 01/06/2018 Secondary NOT GIVENUNK [place] Insurance:SELF PAY [facility] Number: Effective Repository Date:2018-01-06 01/06/2018 NURYS Lazaro Primary NURYS Lazaro Mae [id number] CR Insurance:[facility] ERB: Community [address] [address] 1946-07-27[facility] , [place] [address]Rdh: ADVANTAPolicy Number: Repository [id number] (HP) Date:1626-09-56ZK [address] [place] [address] 16923PT: 01/06/2018 Secondary NOT GIVENUNK [place] Insurance:SELF PAY [facility] Number: Effective Repository Date:2018-01-06 01/01/2018 NURYS Lazaro Primary NURYS Lazaro [facility] SPRANGDOB: Insurance:[facility]ARE [facility]: [place] [id number] [facility] [place] [id number] [place] [address] PP[address]olicy Number: [address] [place] [address] [id number] [address] [place] [address], Repository , [place] [address]Mni: Date:8986-11-22Bnli [place] [address]Wsv: Name:CARE (HP) (HP) 12/22/2017 NURYS Lazaro Primary NURYS [place] [id number] CR Insurance:[facility]: Community [address] 1946-07-27[facility] [place] [address]Zcb: ADVANTAPolicy Number: Repository [id number] (HP) Date:2349-67-18CH [address] [place] [address] 928[address]FQ: 12/22/2017 Secondary NOT GIVENUNK Mae Insurance:SELF PAY [facility] Number: Effective Repository Date:2017-12-22 12/15/2017 NURYS Lazaro Primary NURYS Lazaro [place] [id number] CR Insurance:ANTHEM SPRANGDOB: Community [address] [address] 1946-07-27[facility] , [place] [address]Ecr: ADVANTAPolicy Number: Repository [id number] (HP) Date:6661-43-16VR [address] [place] [address] 775[address]NV: 12/15/2017 Secondary NOT GIVENUNK Mae Insurance:SELF PAY [facility] Number: Effective Repository Date:2017-12-15 12/01/2017 NURYS B Primary NURYS B Mae [id number] CR Insurance:ANTHEM SPRANGDOB: Community [address] 1946-07-27[facility] [place] [address]Mjo: ADVANTAPolicy Number: Repository [id number] (HP) Date:7951-27-92MB [address] [place] [address] 20703UN: 12/01/2017 Secondary NOT GIVENUNK [place] Insurance:SELF PAY [facility] Number: Effective Repository Date:2017-12-01 11/24/2017 NURYS B Primary NURYS B Mae [id number] CR Insurance:ANTHEM SPRANGDOB: Community [address] [id number] , [place] [address]Rxh: ADVANTAPolicy Number: Repository [id number] (HP) Date:4707-33-17YP [address] [place] [address] 32149TP: 11/24/2017 Secondary NOT GIVENUNK Mae Insurance:SELF PAY [facility] Number: Effective Repository Date:2017-11-24 11/10/2017 NURYS B Primary NURYS B Mae [id number] CR Insurance:ANTHEM [facility] [address] [address] 1946-07-27[facility] , [place] [address]Nzu: ADVANTAPolicy Number: Repository [id number] 9-6 (HP) Date:9770-59-80SA [address] [place] [address] 80261OK: 11/10/2017 Secondary NOT GIVENUNK Mae Insurance:SELF PAY [facility] Number: Effective Repository Date:2017-11-14 11/07/2017 NURYS Lazaro Primary NURYS Lazaro Mae [id number] CR Insurance:ANTHEM JOEDOB: Community [address] [address] 1946-07-27[facility] , [place] [address]Kyt: ADVANTAPolicy Number: Repository [id number] (HP) Date:8144-99-01BB [address] [place] [address] 92756KT: 11/07/2017 Secondary NOT GIVENUNK [place] Insurance:SELF PAY [facility] Number: Effective Repository Date:2017-10-29 11/06/2017 NURYS Lazaro Primary NURYS Lazaro [place] [id number] CR Insurance:ANTHPARTH DIAZDOB: Community [address] 1946-07-27[facility] , [place] [address]Tzg: ADVANTAPolicy Number: Repository [id number] (HP) Date:6148-41-40CJ [address] [place] [address] 18781JV: 11/06/2017 Secondary NOT GIVENUNK [place] Insurance:SELF PAY [facility] Number: Effective Repository Date:2017-11-20 10/30/2017 NURYS Lazaro Primary NURYS Lazaro Mae [id number] CR Insurance:ANTHEM JOEDOB: Community [address] [address] 1946-07-27[facility] , [place] [address]Nwv: ADVANTAPolicy Number: Repository [id number] [id number] (HP) Date:4789-46-39MR [address]KFYLMYP, [place] [address]DV: 10/30/2017 Secondary NOT GIVENUNK Mae Insurance:SELF PAY [facility] Number: Effective Repository Date:2017-10-30 10/28/2017 NURYS Lazaro Primary NURYS Lazaro [place] [id number] CR Insurance:ANTHEM [facility]ENTERD[facility]: Community [address] [address] 1946-07-27[place] [address]Tgt: ADVANTAPolicy Number: Repository [phone] 9-6 (HP) Date:1983-85-94[address]FCCEBSK, [place] [address]IP: 10/28/2017 Secondary NOT GIVENUNK Mae Insurance:SELF PAY [facility] Number: Effective Repository Date:2017-10-28 10/28/2017 NURYS Lazaro Primary NURYS Lazaro Mae [id number] CR Insurance:ANTHEM SPRANGDOB: Community [address] [address] 1946-07-27[facility] , [place] [address]Exs: ADVANTAPolicy Number: Repository [id number] 9-6 (HP) Date:5040-85-06OT [address]DBFUPUM, [place] [address]YD: 10/28/2017 Secondary NOT GIVENUNK Mae Insurance:SELF PAY [facility] Number: Effective Repository Date:2017-10-28 10/28/2017 NURYS Lazaro Primary NURYS Lazaro [place] [id number] CR Insurance:ANTHEM SPRSANDRINEDOB: Community [address] [address] 1946-07-27[facility] , [place] [address]Zib: ADVANTAPolicy Number: Repository [id number] 9-6 (HP) Date:7357-51-11ZU [address]ZVTAPMB, [place] [address]ZD: 10/28/2017 Secondary NOT GIVENUNK [place] Insurance:SELF PAY [facility] Number: Effective Repository Date:2017-10-24 10/24/2017 NURYS B Primary NURYS B Mae [id number] CR Insurance:ANTHEM SPRANGDOB: Community [address] [address] [id number] [place] [address]Vfm: ADVANTAPolicy Number: Repository [id number] 9-6 (HP) Date:2425-42-74RT [address] [place] [address]MZ: 10/24/2017 Secondary NOT GIVENUNK [place] Insurance:SELF PAY [facility] Number: Effective Repository Date:2017-10-22 10/24/2017 NURYS Lazaro Primary NURYS Lazaro [place] [id number] CR Insurance:[facility] [address] Number: [id number] [place], [place] [address]Ila: [id number] Repository [phone] Date:0556-46-07UU [address] (HP) [address] [place] [address] 402[address]UM: 10/24/2017 Secondary NOT GIVENUNK [place] Insurance:SELF PAY [facility] Number: Effective Repository Date:2017-10-22 10/22/2017 NURYS Lazaro Primary NURYS Lazaro Mae [id number] CR Insurance:[facility] CENTERANGDOB: Community [address] [address] [id number] [place] [address]Yzn: ADVANTAPolicy Number: Repository [id number] 9-6 (HP) Date:7261-98-71QA [address] [place] [address] 17149XI: 10/22/2017 Secondary NOT GIVENUNK [place] Insurance:SELF PAY [facility] Number: Effective Repository Date:2017-10-22 10/15/2017 NURYS Lazaro Primary NURYS Lazaro [facility] SPRANGDOB: Insurance:MEDICARE [facility]: [place] [id number] ANTHEM [place]MO [place] [id number] [place] [address] [address] PPOPolicy Number: [address] [place] [address] [id number] [facility], [place] , [place] [address]Bwr: Date:6011-58-18Vess [place] [address]Usc: Name:CARE (HP) (HP) 10/13/2017 NURYS Iveth Primary NURYS Lazaro [facility]: [facility]:MEDICARE SPRANGDOB: [place] [facility] [place] [id number] [place] [address] [address] PPOPolicy Number: [address] [id number] [facility], [place] , [place] [address]Cnp: Date:3124-74-73Gfdb [place] [address]Oax: Name:CARE (HP) (HP) 10/09/2017 NURYS Iveth Primary NURYS Iveth [facility]: Insurance:MEDICARE SPRANGDOB: [place] [facility] [place] [id number] [place] [address] [address] PPOPolicy Number: [address] [id number] [facility], [place] , [place] [address]Xjw: Date:9007-70-25Geeh [place] [address]Nja: Name:CARE (HP) (HP) 10/09/2017 NURYS Lazaro Primary NURYS Lazaro [facility]: Insurance:MEDICARE SPRANGDOB: [place] [facility] [place] [id number] [place] [address] [address] PPOPolicy Number: [address] [place] [id number] [address], Rep[place] , [place] [address]Ryd: Date:2584-59-92Xgqp [place] [address]Skj: Name:CARE (HP) (HP) 09/25/2017 NURYS Lazaro Primary NURYS Iveth [facility]: Insurance:MEDICARE SPRANGDOB: [place] [facility] [place] [id number] [facility] CT RD PPOPolicy Number: [address] [facility] [id number] [facility], [place] , [place] [address]Zop: Date:8469-68-59Wowx [place] [address]Ccw: Name:CARE (HP) (HP) 09/25/2017 NURYS Iveth Primary NURYS [facility]: Insurance:MEDICARE SPRANGDOB: [place] [id number] [facility] [place] [id number] [facility] CT RD PPOPolicy Number: [address] [facility] [id number] [facility], Rep[place] , [place] [address]Aco: Date:5200-49-65Ykfs [place] [address]Fnt: Name:CARE (HP) (HP) 09/09/2017 NURYS Lazaro Primary NURYS [facility]: Insurance:MEDICARE SPRANGDOB: [place] [id number] [facility] [place] [id number] [facility] CT RD PPOPolicy Number: [address] [facility] [id number] 1075[facility], Rep[place] , [place] [address]Xuw: Date:5388-32-65Nuai [place] [address]Jfo: Name:CARE (HP) (HP) 09/08/2017 NURYS Lazaro Primary NURYS B [facility]: Insurance:MEDICARE SPRANGDOB: [place] [id number] [facility] [place] [id number] [facility] CT RD PPOPolicy Number: [address] [place] [id number] 1075[facility], Rep[place] , [place] [address]Cjk: Date:2303-38-52Ninj [place] [address]Hff: Name:CARE (HP) (HP) 09/08/2017 NURYS Lazaro Primary NURYS Lazaro [facility]: Insurance:MEDICARE SPRANGDOB: [place] [facility] [place] [id number] [facility] CT RD PPOPolicy Number: [address] [facility] [id number] 1075[facility]UL[facility], [place] , [place] [address]Kbb: Date:3777-64-00Huts [place] [address]Flc: Name:CARE (HP) (HP) 09/08/2017 NURYS Lazaro Primary NURYS Lazaro [facility]: Insurance:MEDICARE SPRANGDOB: [place] [facility] [place] [id number] [facility] CT RD PPOPolicy Number: [address] [facility] [id number] 1075[facility], Rep[place] , [place] [address]Lse: Date:4318-57-02Spwv [place] [address]Zwi: Name:CARE (HP) (HP) 09/08/2017 NURYS B Primary NURYS Lazaro [facility]: Insurance:MEDICARE SPRANGDOB: [place] [facility] [place] [id number] [facility] CT RD PPOPolicy Number: [address] Center [facility] [id number] [address], Rep[place] , [place] [address]Yap: Date:4086-46-90Hudn [place] [address]Thy: Name:CARE (HP) (HP) 09/02/2017 NURYS NUNO [facility]: Insurance:MEDICARE [id number] [place] [facility] O [place] [address] [facility] RD PPOPolicy Number: [facility], Center 10[facility] [id number] [place] [address]Gay: Rep[place] , [place] [address]Lll: Date:6109-32-61Ciqa Name:CARE () () 09/02/2017 NURYS [facility] NURYS PICKENSB: [facility]: Insurance:MEDICARE [id number] [place] ANTHEM HMO [place] [address] [facility] [address] PPOPolicy Number: [place] [address] [id number] [place] [address]Uyd: Repository , [place] [address]Bpq: Date:4012-23-79Lfqg Name:CARE () () 09/02/2017 NURYS [facility] NURYS PICKENSB: [facility]: Insurance:MEDICARE [id number] University ANTHEM HMO [place] [address] [facility] [address] PPOPolicy Number: 1075[facility] [address] [id number] [place] [address]Uwr: Rep[place] , [place] [address]Ipm: Date:6586-21-14Xrrx Name:CARE () () 09/02/2017 NURYS [facility] NURYS PICKENSB: [facility]: Insurance:MEDICARE [id number] [place] ANTHEM HMO [place] [address] [facility] [address] PPOPolicy Number: [id number] [address] [id number] [place] [address]Kow: Repository , [place] [address]Vjx: Date:5253-88-92Pthn Name:CARE () () 09/02/2017 NURYS [facility] NURYS PICKENSB: [facility]: Insurance:MEDICARE [id number] [place] ANTHEM HMO [place] [address] [facility] [address] PPOPoly Number: 1075[facility] [address] [id number] [place] [address]Cnl: Repository , [place] [address]Jwh: Date:6621-70-36Lqze Name:CARE (HP) (HP) 09/01/2017 NURYS Primary NURYS DIAZDOB: [facility] SPRANGDOB: Insurance:MEDICARE [id number] [place] ANTHEM HMO [place] [address] [facility] CT RD OPolmercy[facility] Number: 1075[facility] [address] [id number] [place] [address]Dpu: Repository , [place] [address]Mbk: Date:2509-66-23Uraj Name:CARE (HP) (HP) 08/19/2017 NURYS Lazaro Primary NURYSELMER DIAZDOB: Insurance:ANTHEMPolicy SPRANGDOB: [facility] [id number] Number: Effective [id number] [facility] Date:2017-08-14 [facility] Repository [address] [place] [address] [id number] Name:CD:[id number] [facility] [address]Sqk: 405100UYCPSDM, [place] [address]Hfa: [address]YM: [phone] ([phone] (HP) () 08/19/2017 Primary Insurance:SELF NOT GIVENUNK Mae [facility]: Effective Hospital Date:2017-08-19 Repository 08/13/2017 NURYS Lazaro Primary NURYS PICKENSB: Insurance:ANTHEMPolicy SPRANGDOB: [facility] [id number] Number: Effective [id number] [place] [address] Date:2017-07-31 [facility] [address] Repository [address] [place] [address] 2408-84-48Mztf [address] [place] [address] Name:CD:[id number] [facility] [address]Epy: [id number], [place] [address]Xhl: [address]HB: [phone] (HP) [phone] (HP) (WP) 07/30/2017 NURYS Lazaro Primary NURYS Lazaro [facility]: Insurance:[facility]: [facility] [id number] Number: Effective [id number] [facility] RO[address] Date:2017-07-[address] [id number] [place] [address] Name:CD:[id number] [facility] [address]Slv: 845407[place]CLNVIGLUCK, [place] [address]Ggx: [address]25[address]QW: [phone] (HP) [phone] (HP) (WP)
== END ==
PROVIDERS: Visit Provider Internal Medicine Medical Oncology
DX: C50.411 Malignant neoplasm of upper-outer quadrant of right female breast (principal); Z78.0 Asymptomatic menopausal state; Z79.899 Other long term (current) drug therapy
CPT/HCPCS: 77080

== ENCOUNTER → 2018-06-30 08:50 | Outpatient (CLI) | payer MEDICARE, OTHER, SELFPAY ==
[2018-05-12 09:29] VITALS: BMI 27.5
[2018-06-25 11:34] VITALS: BMI 27.3
--- NOTE | 2018-06-30 08:51 | ECHODONC_ITS ---
Reason For Study: DYSPNEA/ SOB/ HIGH RISK MEDS Procedure This was a 2D Doppler, Color Flow transthoracic echocardiogram. Myocardial strain analysis was performed in this exam to aid in the assessment of cardiac function. The study was technically difficult. Exam performed in department. Left Ventricle Normal LV size. Apical false tendon noted. Left ventricular systolic function is normal. The estimated ejection fraction is 60 %. The global longitudinal strain = -19 % (normal). No regional wall motion abnormalities noted. Right Ventricle Normal RV size. Normal systolic function. Atria The left atrium is mildly enlarged. Normal right atrium. No doppler evidence for ASD. Mitral Valve There is mild mitral annular calcification. Normal mitral valve. Mild (1+) mitral valve insufficiency. Tricuspid Valve Normal tricuspid valve. Trivial tricuspid valve insufficiency. Unable to estimate RV systolic pressure/pulmonary artery pressure due to technically difficult study. Aortic Valve Trisinus/trileaflet aortic valve. Mild focal aortic valve thickening. Pulmonic Valve The pulmonic valve is not well visualized. Great Vessels Normal sized aortic root. Pericardium/Pleural No pericardial effusion. MMode/2D Measurements & Calculations LVIDd: 4.6 cm IVSd: 0.98 cm Ao root diam: 2.6 cm LVIDs: 3.0 cm LVPWd: 0.99 cm RVDd: 3.5 cm FS: 34.2 % LAV(MOD-bp): 62.9 ml LVAd ap4: 24.4 cm2 SV(MOD-sp4): 39.8 ml LAV(MOD-bp) Indexed: 35.5 ml/m2 EDV(MOD-sp4): 67.0 ml LAV(MOD-sp2): 57.4 ml EDV(sp4-el): 69.1 ml LAV(MOD-sp4): 60.9 ml LVAs ap4: 13.7 cm2 ESV(MOD-sp4): 27.3 ml ESV(sp4-el): 26.7 ml EF(MOD-sp4): 59.3 % EF(sp4-el): 61.3 % SV(sp4-el): 42.4 ml LA A4 area: 20.2 cm2 LA dimension(2D): 3.2 cm RA A4 area: 11.6 cm2 Time Measurements MV dec time: 0.16 sec Doppler Measurements & Calculations MV E max jefry: 111.8 cm/sec Lat Peak E' Jefry: 10.9 cm/sec Med Peak E' Jefry: 7.3 cm/sec MV A max jefry: 105.8 cm/sec E/E' lat: 10.2 E/E' med: 15.3 MV E/A: 1.1 Ao V2 max: 142.5 cm/sec LV V1 max: 101.9 cm/sec PA V2 max: 115.4 cm/sec Ao max P.1 mmHg LV V1 max P.2 mmHg Interpretation Summary The study was technically difficult. Left ventricular systolic function is normal. The estimated ejection fraction is 60 %. The global longitudinal strain = -19 % (normal). Apical false tendon noted. The left atrium is mildly enlarged. There is mild mitral annular calcification. Mild (1+) mitral valve insufficiency. Trivial tricuspid valve insufficiency. Mild focal aortic valve thickening. Unable to estimate RV systolic pressure/pulmonary artery pressure due to technically difficult study. Transmitral diastolic flow velocities suggest diastolic dysfunction (pseudonormal pattern). Ordering Physician: Ignacio Hoyt Referring Physician: Ignacio Hoyt Performed By: Amelia Obrien, ALEXANDRA, RVT
== END ==
PROVIDERS: Referring Provider Internal Medicine Medical Oncology; Visit Provider Internal Medicine Medical Oncology
DX: R06.02 Shortness of breath (principal); Z79.899 Other long term (current) drug therapy
CPT/HCPCS: 0399T; 93306

== ENCOUNTER → 2018-09-24 | Outpatient (CLI) | payer MEDICARE, SELFPAY ==
[2018-05-12 09:29] VITALS: BMI 27.5
[2018-09-03 11:10] VITALS: BMI 28.1
--- NOTE | 2018-09-24 08:48 | ECHODONC_ITS ---
Reason For Study: high risk meds Procedure This was a 2D Doppler, Color Flow transthoracic echocardiogram. Myocardial strain analysis was performed in this exam to aid in the assessment of cardiac function. The study was technically difficult. Exam performed in department. Left Ventricle Normal size and thickness. The global longitudinal strain = -16.5 % (normal). The prior global longitudinal strain was -19 % . No regional wall motion abnormalities noted. Right Ventricle Normal size and thickness. Normal systolic function. Atria The left atrium is mildly enlarged. Normal right atrium. Normal atrial septum. Mitral Valve The mitral valve is structurally normal. No prolapse or stenosis seen. Tricuspid Valve Normal tricuspid valve. Unable to estimate RV systolic pressure due to inadequate jet, pulmonary artery pressure probably normal. Pulmonic Valve Normal pulmonic valve. Great Vessels Normal aortic root. Normal arch. Normal inferior vena cava. Inferior vena cava collapse with sniff. Pericardium/Pleural No pericardial effusion. MMode/2D Measurements & Calculations LVIDd: 5.1 cm IVSd: 0.99 cm LAV(MOD-bp): 69.6 ml LVIDs: 3.5 cm LVPWd: 0.96 cm LAV(MOD-bp) Indexed: 39.2 ml/m2 RVDd: 3.1 cm FS: 31.6 % LAV(MOD-sp2): 62.2 ml LAV(MOD-sp4): 69.3 ml LA A4 area: 21.8 cm2 LA dimension(2D): 3.9 cm RA A4 area: 14.5 cm2 Time Measurements MV dec time: 0.18 sec Doppler Measurements & Calculations MV E max jefry: 96.4 cm/sec Lat Peak E' Jefry: 10.2 cm/sec Med Peak E' Jefry: 7.0 cm/sec MV A max jefry: 106.3 cm/sec E/E' lat: 9.5 E/E' med: 13.8 MV E/A: 0.91 Ao V2 max: 147.1 cm/sec LV V1 max: 102.2 cm/sec PA V2 max: 108.6 cm/sec Ao max P.7 mmHg LV V1 max P.2 mmHg Interpretation Summary The prior global longitudinal strain was -19 % . Unable to estimate RV systolic pressure due to inadequate jet, pulmonary artery pressure probably normal. Compared to echo report dated 06/30/2018, no appreciable changes noted. Dr Sainz notifed at 1118 am. Ordering Physician: Ignacio Hoyt Referring Physician: Bessy Asher Performed By: Carissa Chow RDCS, RVT
== END | disposition home or self-care (01) ==
LOC: CVS 08:47
PROVIDERS: Referring Provider Internal Medicine Medical Oncology; Visit Provider Internal Medicine Medical Oncology
DX: C50.911 Malignant neoplasm of unspecified site of right female breast (principal); Z79.899 Other long term (current) drug therapy
CPT/HCPCS: 0399T; 93306

== ENCOUNTER → 2019-01-04 13:39 | Outpatient (CLI) | payer MEDICARE, OTHER, SELFPAY ==
[2018-05-12 09:29] VITALS: BMI 27.5
[2018-12-17 11:04] VITALS: BMI 28.5
--- NOTE | 2019-01-04 13:40 | CT_ITS ---
STUDY: CT CHEST WITH CONTRAST REASON FOR EXAM: Female, 73 years old. Restaging breast cancer prior right mastectomy RADIATION DOSAGE (If Supplied By Facility): CTDIvol = ( 13.12 ) mGy, DLP = ( 1313.79 ) mGycm TECHNIQUE: Transaxial imaging was performed following intravenous administration of 100ml IV Isovue 300. Multiplanar coronal and sagittal images were reformatted. Individualized dose optimization techniques were used for this CT. COMPARISON: May 20, 2018 CT chest limited FINDINGS: There is a left-sided Port-A-Cath. The tip is in the atriocaval junction appear There is a pattern of emphysematous change throughout the lungs especially the lung apices. There is no new focal consolidation or pleural effusion. Within the right middle lobe there are 2 small focal 2 mm nodular densities that are not definitively seen on the prior study. This is seen on image #75 and image #77 of the series 2 there is a focus of nodular density within the right middle lobe just above the fissure with central calcification compatible with a small focus of probable prior granulomatous disease that measures 1.0 x 0.8 cm. There is stable left lower lobe scarring. There is no demonstrated pleural abnormality. Normal heart and pericardium. Normal mediastinum. There is a stable punctate calcification within the right hilum with minimal associated soft tissue density. There is also a stable focal nodular density within the right suprahilar region unchanged since prior study that measures approximately 8 mm. Normal enhanced pulmonary arteries. The aorta is partially calcified. The left vertebral artery has its takeoff from the arch. There are multi-level degenerative changes of the thoracic spine. This kyphosis. There are a few nonspecific upper abdominal subcentimeter lymph nodes visualized. There is a small hiatal hernia. There is breast asymmetry compatible with right-sided mastectomy. CT/Chest WITH Contrast IMPRESSION: Visualized 2 small 2 to 3 mm nodules in the right middle lobe recommend follow-up in 6 months to ensure stability. Pulmonary edema chronic obstructive pulmonary disease stable focus of probable old granulomatous disease right middle lobe. Stable small right hilar lymph node. Electronically Signed: Jovita Roche MD at 21:58 EDT Tel , Service support ,
--- NOTE | 2019-01-04 13:40 | CT_ITS ---
STUDY: CT ABDOMEN AND PELVIS WITH CONTRAST REASON FOR EXAM: Female, 73 years old. Right breast cancer RADIATION DOSAGE (If Supplied By Facility): CTDIvol = ( 13.12 ) mGy, DLP = ( 1313.79 ) mGycm TECHNIQUE: Transaxial images were obtained from the dome of the diaphragm to the symphysis pubis with oral contrast. 100ml IV/Oral Isovue 300 was administered. Sagittal and coronal images were reconstructed. Individualized dose optimization techniques were used for this CT. COMPARISON: 02/13/2018 FINDINGS: There are chronic interstitial fibrotic changes of the lung bases. The visualized portions of the heart are within normal limits. Normal liver. Normal gallbladder and extrahepatic biliary system. Normal spleen. Normal pancreas. Normal bilateral adrenal glands. Normal right kidney. Normal left kidney. Normal visualized stomach. Normal small intestine. Retained stool noted in the colon, there is a intramural lipoma within a bowel loop as seen on axial image 74. There is non-visualization of the appendix. There is diffuse atherosclerotic calcification of the abdominal aorta, without a demonstrated aneurysm. Normal inferior vena cava. Scattered subcentimeter mesenteric and retroperitoneal lymph nodes. Normal urinary bladder. Normal visualized uterus. No suspicious adnexal mass or free fluid There is a left-sided inguinal hernia containing adipose tissue. There are diffuse degenerative changes of the visualized lumbar spine, and pelvis. CT/Abdomen/Pelvis WITH Contrast IMPRESSION: No suspicious solid organ abnormality No free intraperitoneal fluid, air, or suspicious adenopathy Atherosclerosis Degenerative bony changes Electronically Signed: Micah Bustamante MD at 14:57 EDT , Service support ,
[2019-01-04] MEDS: 0.9% Saline Lock 10 ML Syringe IV (14:21)
== END ==
PROVIDERS: Referring Provider Internal Medicine Medical Oncology; Visit Provider Internal Medicine Medical Oncology
DX: C50.811 Malignant neoplasm of overlapping sites of right female breast (principal)
CPT/HCPCS: 71260; 74177; Q9967; A4216

== ENCOUNTER → 2019-01-08 | Outpatient (CLI) | payer MEDICARE, OTHER, SELFPAY ==
[2018-05-12 09:29] VITALS: BMI 27.5
[2018-12-17 11:04] VITALS: BMI 28.5
--- NOTE | 2019-01-08 10:19 | NM_ITS ---
CLINICAL: 73-year-old female with reported history of primary breast carcinoma. WHOLE BODY 99m Tc MDP RADIONUCLIDE BONE SCINTIGRAPHY COMPARISON: CT of the chest, abdomen and pelvis reports 01/04/2019 FINDINGS: Following the intravenous administration of 26 mCi mCi of 99m Tc MDP, whole body bone images reveal: 1. Increased radiopharmaceutical concentration is identified in the lower cervical spine posteriorly on the left, visualized right elbow, the left wrist, both hands, the patellofemoral compartments of the bilateral knees, posterior compartments of the right-left ankles, the bilateral mid and forefoot. 2. The remaining skeletal structures are scintigraphically unremarkable with normal-appearing renal images and urinary bladder activity identified. NM/Bone Scan Whole Body IMPRESSION: 1. The increase in radiopharmaceutical concentration finding the cervical spine, right elbow, left wrist, bilateral hands, right and left knees, both ankle articulations, right-left mid and forefoot is most consistent with degenerative arthritis. 2. There is no definitive typical scintigraphic evidence of skeletal metastatic disease on the current examination. Electronically Signed: Rayo Melvin DO at 14:11 EDT Tel , Service support ,
== END | disposition home or self-care (01) ==
PROVIDERS: Referring Provider Internal Medicine Medical Oncology; Visit Provider Internal Medicine Medical Oncology
DX: C50.811 Malignant neoplasm of overlapping sites of right female breast (principal)
CPT/HCPCS: 78306

== ENCOUNTER 2019-06-20 06:12 | Inpatient (IN) | payer MEDICARE, SELFPAY ==
[2018-05-12 09:29] VITALS: BMI 27.5
[2019-05-12 11:06] VITALS: BMI 27.6
[2019-06-20] VITALS (37 sets, daily range): BP systolic 82–118; BP diastolic 56–101; PULSE 76–105; RESP 12–32; TEMP 36.8–37.2; O2SAT 93–100; BMI 26.9
--- NOTE | 2019-06-20 06:09 | ECHOD_ITS ---
Reason For Study: CAD Procedure This was a 2D Doppler, Color Flow transthoracic echocardiogram. Exam performed portable in ICU/CCU. Left Ventricle Normal LV size. The estimated ejection fraction is 40 %. Moderate segmental systolic dysfunction (see wall motion). The global longitudinal strain is severely abnormal. The global longitudinal strain = -10.5% (abnormal). The prior global longitudinal strain was -19 % . [place] : Severely Hypokinetic. Mid-Anterior : Hypokinetic. Mid-Inferior: Hypokinetic. Anterio-Basal: Normal. Lateral- Basal: Normal. Posterior-Basal: Normal. Infero-Basal: Normal. Right Ventricle Normal RV size. Normal systolic function. Atria Normal left atrium. Normal right atrium. Mitral Valve Normal mitral valve. Mild (1+) eccentric mitral valve insufficiency. Tricuspid Valve Normal tricuspid valve. Aortic Valve Normal aortic valve. Pulmonic Valve Normal pulmonic valve. Great Vessels Normal aortic root. The pulmonary artery is normal size. Normal inferior vena cava. Pericardium/Pleural No pericardial effusion. MMode/2D Measurements & Calculations LVIDd: 5.1 cm IVSd: 0.80 cm Ao root diam: 2.3 cm LVIDs: 2.9 cm LVPWd: 0.99 cm RVDd: 3.5 cm FS: 43.2 % LAV(MOD-bp): 55.3 ml LA A4 area: 18.2 cm2 LA dimension(2D): 3.4 cm LAV(MOD-bp) Indexed: 30.4 ml/m2 LAV(MOD-sp2): 46.6 ml LAV(MOD-sp4): 53.2 ml RA A4 area: 13.2 cm2 Time Measurements MV dec time: 0.24 sec Doppler Measurements & Calculations MV E max jefry: 90.7 cm/sec Lat Peak E' Jefry: 6.9 cm/sec Med Peak E' Jefry: 4.8 cm/sec MV A max jefry: 82.9 cm/sec E/E' lat: 13.1 E/E' med: 18.7 MV E/A: 1.1 Ao V2 max: 132.8 cm/sec LV V1 max: 102.4 cm/sec PA V2 max: 125.2 cm/sec Ao max P.1 mmHg LV V1 max P.2 mmHg Interpretation Summary Normal LV size. The estimated ejection fraction is 40 %. Moderate segmental systolic dysfunction (see wall motion). The global longitudinal strain is severely abnormal. The global longitudinal strain = -10.5% (abnormal). The prior global longitudinal strain was -19 % . Ordering Physician: Lindsay Bueno Performed By: Amelia Obrien, ALEXANDRA, RVT
--- NOTE | 2019-06-20 06:40 | NURSING ---
Upon arrival to ICU during admission, this RN asked pt about advanced directives. When asked if pt would want to be intubated if needed, pt states,yes, if its temporary. When asked about CPR, pt states,no way, just let me be. I discussed DNRCCA with intubation with pt, pt agreed that that is the status she would prefer.
--- NOTE | 2019-06-20 07:16 | PCM.HP.STD ---
Problem List (1) Exertional dyspnea Status: Acute (2) Breast cancer, right breast Status: Chronic Qualifiers: Breast location: upper outer quadrant of breast Estrogen receptor status: positive Patient sex: female Qualified Code(s): C50.411 - Malignant neoplasm of upper-outer quadrant of right female breast; Z17.0 - Estrogen receptor positive status [ER+] (3) Chemotherapy-induced nausea Status: Chronic (4) Asthma with COPD Status: Chronic (5) Tobacco use Status: Chronic (6) History of alcohol abuse Status: Chronic (7) Prediabetes Status: Chronic (8) Hypothyroidism (acquired) Status: Chronic (9) Antineoplastic chemotherapy induced anemia Status: Chronic (10) Tobacco use disorder, continuous Status: Chronic History of Present Illness Date of Admission: 06/20/19 Chief Complaint: Shortness of breath The patient is a 73 year old F with past medical history significant for COPD, breast cancer currently receiving chemotherapy history of pulmonary Langerhan cell histiocytosis who presented with shortness of breath. Patient symptoms started 3 days prior to her admission. Per patient shortness of breath has since worsened with minimal activity. Patient also did experience productive cough. Patient also did experience low-grade fever as well as wheezing. In view of worsening condition patient presented to [facility] ED at [place] in [place]. Patient was assessed to be in acute hypoxic respiratory failure placed on BiPAP which she apparently did not tolerate. Was placed on high flow oxygen and subsequently transferred to the [facility] for further management. Past Medical History Past Medical History (Chronic Problems): Chronic Problems (Last Reviewed 05/12/19 @ 11:04 by Didi Chahal) Breast cancer, right breast (Chronic) Chemotherapy-induced nausea (Chronic) Asthma with COPD (Chronic) Tobacco use (Chronic) History of alcohol abuse (Chronic) Prediabetes (Chronic) Hypothyroidism (acquired) (Chronic) Antineoplastic chemotherapy induced anemia (Chronic) Tobacco use disorder, continuous (Chronic) Medical History: Medical History (Last Reviewed 06/20/19 @ 09:45 by Mike Pope MD) Abnormal breast biopsy R89.7 right breast 08/19/17 Asthma J45.909 Breast cancer C50.919 Fracture, skull S02.91XA History of elevated glucose Z86.39 pre-diabetic Hyperthyroidism E05.90 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 #27 [facility] 03/2018 port placement 10-28-17 Allergies No Known Allergies Allergy (Verified 05/12/19 11:06) Home Medications: Ambulatory Orders Medication Instructions Recorded Albuterol Aerosols [Ventolin 1 puff INHALATION DAILY 10/21/17 Aerosols] Albuterol Inhaler [Ventolin Hfa] 1 puff INHALATION DAILY 10/21/17 Fluticasone/Vilanterol [Breo 1 puff INHALATION QODAY 10/21/17 Ellipta 200-25 Mcg INH] Lidocaine/Prilocaine 30 gm TP DAILY PRN PRN 30 Days #1 10/30/17 [Lidocaine-Prilocaine Cream] cream..g. 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 Smoking Status: Current every day smoker - *Family History Maternal Family History: Family History (Last Reviewed 06/20/19 @ 09:46 by Mike Pope MD) Brother Cancer Father Lung cancer Aunt Cancer Review of Systems Constitutional: Reports: Chills, Fever, Fatigue HEENT: Denies: Head Aches, Sinus Congestion, Sinus Drainage Respiratory: Reports: Cough, Shortness of Breath, Wheezing Gastrointestinal: Denies: Abdominal Pain, Hematemesis, Hematochezia, Nausea, Melena, Vomiting Genitourinary: Denies: Dysuria, Frequency, Hematuria, Urgency Musculoskeletal: Denies: Joint Pain, Joint Tenderness Skin: Denies: Rash Neurological: Denies: Focal weakness, Numbness, Tingling Psychiatric: Denies: Homicidal Ideations, Suicidal Ideations Endocrine: Denies: Polydipsia, Polyuria Hematologic/ Lymphatic: Denies: Easy Bruising, Easy Bleeding VTE Information - Inpt Only VTE Present on Admission: No VTE Mechan Device Prophylaxis: None VTE Pharm Prophylaxis ordered?: Yes Objective: GENERAL: cooperative significantly dyspneic at rest using accessory muscles and breathing HEENT: Atraumatic; EYES; Anicteric, Normal Conjunctiva NECK; supple, normal thyroid, RESPIRATORY: Diminished to auscultation, with bilateral wheezes CARDIOVASCULAR: Regular S1 S2, GI: soft, normoactive bowel sounds, : No Renal angle tenderness; EXTREMITIES: No edema, no clubbing, MUSCULOSKELETAL: no muscle waisting NEURO: Awake; no lateralizing signs. SKIN: No Rash PSYCH; Flat affect - Physical Exam Vitals/I&O's: Body Mass Index (BMI) 27.6 Current Medications Acetaminophen (Tylenol) 650 mg PO Q6H PRN PRN PRN Reason: Pain Score 1-3/Temp > 100.7 F Al Hydroxide/Mg Hydroxide (Mylanta Ii) 30 ml PO Q6H PRN PRN PRN Reason: Gastric Burning Albuterol Sulfate (Ventolin Aerosols) 2.5 mg INHALATION Q2H PRN PRN PRN Reason: dyspnea, wheezing Albuterol/Ipratropium (Duoneb) 3 ml INHALATION Q4HWA.RT [facility] Aspirin (Aspirin, Baby) 81 mg PO DAILY@0800 [facility] Dextrose (D50w Syringe) 0 gm IV X1 PRN; Protocol PRN Reason: Hypoglycemia Famotidine (Pepcid) 20 mg PO BID [facility] Glucagon () 1 mg IM .X1 PRN PRN Reason: Hypoglycemia Guaifenesin (Robitussin) 10 ml PO Q4H PRN PRN PRN Reason: COUGH Hydralazine HCl (Apresoline Iv) 10 mg IV Q4H PRN PRN PRN Reason: SBP > 160 Piperacillin Sod/Tazobactam (Sod 3.375 gm/ Sodium Chloride) 50 mls @ 12.5 mls/hr IV Q8 [facility] Vancomycin IV Pharmacy to Dose (1 ea/ Sodium Chloride) 500 mls @ 250 mls/hr IV X1 PRN; Protocol PRN Reason: Rx to Dose Heparin Sodium/Dextrose () 25,000 units in 250 mls @ 11 mls/hr IV .[id number] [facility]ON; Protocol Sodium Chloride () 1,000 mls @ 125 mls/hr IV .Q8H [facility] Piperacillin Sod/Tazobactam (Sod 3.375 gm/ Sodium Chloride) 50 mls @ 12.5 mls/hr IV X1 ONE Stop: 06/20/19 10:29 Vancomycin HCl (Vancomycin) 1,000 mg in 200 mls @ 200 mls/hr IV Q1H [facility] Stop: 06/20/19 08:29 Levothyroxine Sodium (Synthroid) 137 mcg PO DAILY@0600 [facility] Lorazepam (Ativan) 0.5 mg IV Q4H PRN PRN PRN Reason: anxiety with BIPAP Magnesium Hydroxide (Milk Of Magnesia) 30 ml PO DAILY PRN PRN PRN Reason: Constipation Melatonin (Melatonin) 3 mg PO QHS PRN PRN PRN Reason: INSOMNIA Methylprednisolone (Solu-Medrol) 40 mg IV Q8 [facility] Morphine Sulfate () 2 mg IV Q3H PRN PRN PRN Reason: Pain Score 6-10/10 Nitroglycerin (Nitrostat) 0.4 mg SUBLINGUAL Q5M PRN PRN Reason: CARDIAC/CHEST PAIN Ondansetron HCl (Zofran) 4 mg IV Q8H PRN PRN PRN Reason: NAUSEA/VOMITING Oxycodone HCl (Oxyir) 5 mg PO Q4H PRN PRN PRN Reason: Pain Score 4-5/10 Prochlorperazine Edisylate (Compazine Iv) 5 mg IV Q4H PRN PRN PRN Reason: Breakthrough Nausea/Vomiting Tamoxifen Citrate (Nolvadex) 20 mg PO DAILY [facility] Throat Lozenges (Cepacol Sore Throat Lozenge) 1 lozenge MUCOUS MEM Q2H PRN PRN PRN Reason: Sore Throat/Cough Assessment/Plan All Active Problems (Last Reviewed 05/12/19 @ 11:04 by Didi Chahal) Encounter for insertion of venous access port (Resolved) Exertional dyspnea (Acute) Sore throat (Resolved) Perineal pain (Resolved) Diarrhea (Resolved) Nausea vomiting and diarrhea (Resolved) Large bowel obstruction (Resolved) Ileus (Resolved) Hypokalemia due to loss of potassium (Resolved) Patient is a 73-year-old lady presented with progressive shortness of breath 1. Acute hypoxic respiratory failure ?Secondary to community-acquired pneumonia, admitted to the intensive care unit for treatment of underlying condition. Patient was placed on high flow oxygen and consultation placed to pulmonary medicine?Dr. Vyas 2. Community-acquired pneumonia ?With suspected multidrug resistance in view of patient underlying immunocompromised state. Patient was started on Zosyn and vancomycin cultures sent with plans to adjust antibiotic therapy based on culture result. Also did request for nasal MRSA screen if negative will discontinue vancomycin 3. Right breast CA stage IIIb ?Patient was apparently treated with Perjeta/Herceptin which she completed treatment on 12/17/2018 currently on therapy with tamoxifen 4. Hypothyroidism ~patient is on levothyroxine home dose continued 5. Chronic hypoxic respiratory failure ?Secondary to COPD. Patient is on baseline 2 L oxygen at bedtime 6. Tobacco dependence - counseled on cessation, offered nicotine patch for tobacco cravings 7. Pulmonary Langerhan cell histiocytosis ?Management deferred to pulmonary medicine 8. Elevated troponin ?Suspected to be secondary to NSTEMI type II as a result of demand ischemia subsequent serial cardiac enzymes ordered in addition to echo and consultation was placed to cardiology on admission 9. DVT prophylaxis ?Patient on heparin Advance planning; did discuss with the patient regarding advanced directives as well as CODE STATUS. Did explain the various scenarios involved ( FULL CODE, DNR CCA, DNR CCA with no intubation, and DNR CC and what each meant) patient elected remain full code with intubation and CPR if warranted. Order was placed. Time spent on discussion 18 minutes. Code Visit Inpatient E&M: 81724 Init Hosp L3 Procedures: 16242 Advncd Care Plan 30 Min
--- NOTE | 2019-06-20 07:39 | CON.PCM_ITS ---
Reason for Consult Date of Consultation: 06/20/19 Reason for Consultation: Respiratory failure History of Present Illness: The patient is a 73-year-old female, with a history as outlined below, who presented as a direct admit to the intensive care unit on the morning of June 20 from [facility] after having presented with shortness of breath and cough. She apparently has a diagnosis of COPD of unknown severity along with nocturnal hypoxemia, for which she utilizes 2 L/min of supplemental oxygen at night. Outside hospital medical records were personally reviewed. The patient is currently followed by Dr. Hoyt of oncology due to a history of stage IIb right breast cancer. 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 The patient does not currently follow with a industrial custodian. Although pulmonary function studies have been ordered previously, she has never been able to complete them. She is currently prescribed Breo and as needed Ventolin in her home environment. However, she reports that she only utilizes her Brio every other day. She is an active smoker of 0.25 packs/day. Previously, she smoked upwards of 1 pack of cigarettes per day. Initial troponin level was elevated to 0.30. Lactate was normal at 0.7. There was no evidence of an elevated white blood cell count. BNP was normal at 82. Rapid influenza screen was negative. A CTA chest was obtained which apparently demonstrated no evidence for acute PE. There was right hilar lymph node enlargement along with bronchial wall thickening, along with groundglass changes noted throughout the right hemithorax. Emphysematous changes were also noted bilaterally. The patient was treated with bronchodilators, IV steroids, Levaquin and vancomycin. Attempts to utilize BiPAP therapy were unsuccessful due to patient reported claustrophobia. Therefore, the patient was transitioned to Airvo. Past Medical History Past Medical History (Chronic Problems): Chronic Problems (Last Reviewed 06/20/19 @ 09:45 by Mike Pope MD) Breast cancer, right breast (Chronic) Chemotherapy-induced nausea (Chronic) Asthma with COPD (Chronic) Tobacco use (Chronic) History of alcohol abuse (Chronic) Prediabetes (Chronic) Hypothyroidism (acquired) (Chronic) Antineoplastic chemotherapy induced anemia (Chronic) Tobacco use disorder, continuous (Chronic) Medical History: Medical History (Last Reviewed 06/20/19 @ 09:45 by Mike Pope MD) Abnormal breast biopsy R89.7 right breast 08/19/17 Asthma J45.909 Breast cancer C50.919 Fracture, skull S02.91XA History of elevated glucose Z86.39 pre-diabetic Hyperthyroidism E05.90 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 #27 [facility] 03/2018 port placement 10-28-17 Allergies No Known Allergies Allergy (Verified 05/12/19 11:06) Home Medications: Ambulatory Orders Medication Instructions Recorded Albuterol Aerosols [Ventolin 1 puff INHALATION DAILY 10/21/17 Aerosols] Albuterol Inhaler [Ventolin Hfa] 1 puff INHALATION DAILY 10/21/17 Fluticasone/Vilanterol [Breo 1 puff INHALATION QODAY 10/21/17 Ellipta 200-25 Mcg INH] Lidocaine/Prilocaine 30 gm TP DAILY PRN PRN 30 Days #1 10/30/17 [Lidocaine-Prilocaine Cream] cream..g. Levothyroxine [Synthroid] 137 mcg PO DAILY 05/12/19 Tamoxifen Citrate [Nolvadex] 20 mg PO DAILY #90 tab 05/12/19 Surgical History: Surgical History (Last Reviewed 06/20/19 @ 09:46 by Mike Pope MD) H/O toe surgery Z98.890 cyst removed H/O ultrasound guided needle biopsy Z98.890 RIGHT BREAST [facility] AUGUST 2017 History of appendectomy Z90.49 History of back surgery Z98.890 History of modified radical mastectomy of right breast Z90.11 [facility] 03/2018 Surgical History: - Psychiatric History: No pertinent psych hx REQUIREMENTS MANAGER History: No pertinent REQUIREMENTS MANAGER history Smoking Status: Current every day smoker - *Family History Maternal Family History: Family History (Last Reviewed 06/20/19 @ 09:46 by Mike Pope MD) Brother Cancer Father Lung cancer Aunt Cancer Paternal Family History: Family History (Last Reviewed 06/20/19 @ 09:46 by Mike Pope MD) Brother Cancer Father Lung cancer Aunt Cancer Review of Systems Constitutional: Reports: Malaise, Fatigue Eyes: Denies: Blurred vision, Double vision HEENT: Denies: Head Aches, Sinus Congestion, Sinus Drainage Cardiovascular: Denies: Chest Pain, Palpitations Respiratory: Reports: Cough, Shortness of Breath, Wheezing Gastrointestinal: Denies: Abdominal Pain, Nausea, Vomiting Genitourinary: Denies: Dysuria Musculoskeletal: Denies: Joint Pain, Joint Tenderness Skin: Denies: Rash, Wounds Neurological: Denies: Numbness, Tingling, Focal weakness Psychiatric: Denies: Anxiety, Depression, Homicidal Ideations, Suicidal Ideations Hematologic/ Lymphatic: Reports: Anemia Objective: The patient's most recent lab work, culture data and imaging studies have all been personally reviewed. - Physical Exam Vitals/I&O's: Body Mass Index (BMI) 27.6 General: Alert, Cooperative HEENT: Atraumatic, PERRLA, Normocephalic Oral: No Gingival or Mucosal Lesions/ Ulcerations Neck: Supple, No Nodes, Trachea Midline Lungs: Diminished, Tachypneic, Wheezes, - - Prolonged expiratory phase. Chest port in place. Cardiovascular: Regular rate, Regular Rhythm, Normal S1, Normal S2, No murmurs Abdomen: Bowel Sounds Present, Soft, Non Tender Extremities: No clubbing, No cyanosis, No edema Skin: No breakdown Musculoskeletal: No Tenderness to Palpation of Joints or Extremities Lymphatic: No Cervical, Supraclavicular, or Inguinal Adenopathy Neurological: Cranial nerves II-XII grossly intact, Neuro grossly intact Psych/Mental Status: Normal Affect, Appropriate Current Medications Acetaminophen (Tylenol) 650 mg PO Q6H PRN PRN PRN Reason: Pain Score 1-3/Temp > 100.7 F Al Hydroxide/Mg Hydroxide (Mylanta Ii) 30 ml PO Q6H PRN PRN PRN Reason: Gastric Burning Albuterol Sulfate (Ventolin Aerosols) 2.5 mg INHALATION Q2H PRN PRN PRN Reason: dyspnea, wheezing Albuterol/Ipratropium (Duoneb) 3 ml INHALATION Q4HWA.RT [facility] Aspirin (Aspirin, Baby) 81 mg PO DAILY@0800 [facility] Dextrose (D50w Syringe) 0 gm IV X1 PRN; Protocol PRN Reason: Hypoglycemia Famotidine (Pepcid) 20 mg PO BID [facility] Glucagon () 1 mg IM .X1 PRN PRN Reason: Hypoglycemia Guaifenesin (Robitussin) 10 ml PO Q4H PRN PRN PRN Reason: COUGH Hydralazine HCl (Apresoline Iv) 10 mg IV Q4H PRN PRN PRN Reason: SBP > 160 Piperacillin Sod/Tazobactam (Sod 3.375 gm/ Sodium Chloride) 50 mls @ 12.5 mls/hr IV Q8 [facility] Vancomycin IV Pharmacy to Dose (1 ea/ Sodium Chloride) 500 mls @ 250 mls/hr IV X1 PRN; Protocol PRN Reason: Rx to Dose Heparin Sodium/Dextrose () 25,000 units in 250 mls @ 11 mls/hr IV .[id number] [facility]; Protocol Sodium Chloride () 1,000 mls @ 125 mls/hr IV .Q8H [facility] Piperacillin Sod/Tazobactam (Sod 3.375 gm/ Sodium Chloride) 50 mls @ 12.5 mls/hr IV X1 ONE Stop: 06/20/19 10:29 Vancomycin HCl (Vancomycin) 1,000 mg in 200 mls @ 200 mls/hr IV Q1H [facility] Stop: 06/20/19 08:29 Levothyroxine Sodium (Synthroid) 137 mcg PO DAILY@0600 [facility] Lorazepam (Ativan) 0.5 mg IV Q4H PRN PRN PRN Reason: anxiety with BIPAP Magnesium Hydroxide (Milk Of Magnesia) 30 ml PO DAILY PRN PRN PRN Reason: Constipation Melatonin (Melatonin) 3 mg PO QHS PRN PRN PRN Reason: INSOMNIA Methylprednisolone (Solu-Medrol) 40 mg IV Q8 [facility] Morphine Sulfate () 2 mg IV Q3H PRN PRN PRN Reason: Pain Score 6-10/10 Nitroglycerin (Nitrostat) 0.4 mg SUBLINGUAL Q5M PRN PRN Reason: CARDIAC/CHEST PAIN Ondansetron HCl (Zofran) 4 mg IV Q8H PRN PRN PRN Reason: NAUSEA/VOMITING Oxycodone HCl (Oxyir) 5 mg PO Q4H PRN PRN PRN Reason: Pain Score 4-5/10 Prochlorperazine Edisylate (Compazine Iv) 5 mg IV Q4H PRN PRN PRN Reason: Breakthrough Nausea/Vomiting Tamoxifen Citrate (Nolvadex) 20 mg PO DAILY [facility] Throat Lozenges (Cepacol Sore Throat Lozenge) 1 lozenge MUCOUS MEM Q2H PRN PRN PRN Reason: Sore Throat/Cough Assessment/Plan RECOMMENDATIONS: 1. Continue Airvo support, given BiPAP intolerance. Wean FiO2 to maintain oxygen saturations at or above 90%. 2. Continue scheduled bronchodilators and IV steroids. 3. Continue broad-spectrum antimicrobials, pending infectious work-up. 4. Obtain blood, urine and sputum cultures. Check MRSA panel. 5. Check respiratory viral panel. 6. Obtain arterial blood gas. IMPRESSIONS: 1. Acute hypoxemic and hypercarbic respiratory failure The patient was transferred from an outside hospital with presumptive community- acquired pneumonia leading to an exacerbation of the patient's self-reported COPD. The patient does have an extensive smoking history and likely does have a component of underlying obstructive lung disease. However, she has never completed pulmonary function studies previously. At this time, I would recommend continuing supportive measures with BiPAP therapy and Airvo as tolerated by the patient. Bronchodilator therapy will be scheduled [id number]. The patient will remain on scheduled steroids as well. I would have a low threshold for intubation, given the patient's tenuous respiratory status. Echocardiogram is pending as well. 2. Personal history of stage IIb right breast cancer The patient is currently followed by Dr. Hoyt of oncology and is currently being maintained on adjuvant tamoxifen therapy. 3. 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 Continue Synthroid. Smoking cessation counseling was provided. Nicotine replacement therapy can be offered to the patient while admitted to the hospital. The patient wishes to remain full CODE STATUS at this time. TIME: 39 minutes of critical care time, independent of procedures, was spent addressing the patient's acute hypoxemic and hypercarbic respiratory failure, presumptive community-acquired pneumonia, COPD with exacerbation, history of breast cancer, history of Langerhan cell histiocytosis, tobacco dependency, review of all data and collaboration with the care team. ([id number]) Code Visit [id number]: [id number] Critical care first hour
[2019-06-20 07:49] LABS: Hemoglobin 11.7 g/dL (12.0-15.0); Mean Corp Hgb Conc 32.5 g/dL (32-36); Mean Corpuscular Hgb 32.3 pg (27.0-32.0); Mean Corpuscular Volume 99.4 fL (81-99); Mean Platelet Vol. 9.2 fl (6.2-12.0); Platelet Count 195 K/mm3 (150-450); RBC Distribution Width CV 14.4 % (11.6-14.6); RBC Distribution Width SD 52.8 fl (35.1-43.9); Red Blood Count 3.62 M/mm3 (4.2-5.4); White Blood Count 5.1 K/mm3 (4.4-11.0)
[2019-06-20 08:06] LABS: International Normalized Ratio 1.1; Prothrombin Time (Protime)PT. 13.5 SECONDS (11.7-14.9)
[2019-06-20 08:07] LABS: ALB/GLOB Ratio 0.8 RATIO (0.9-2.4); AST(SGOT) 11 U/L (15-37); Alanine Aminotransfer ALT/SGPT 20 U/L (13-56); Albumin, Serum 2.9 g/dL (3.2-5.0); Alkaline Phosphatase 75 U/L (45-117); Anion Gap 5 (5-15); BUN 9 mg/dL (7-18); BUN/Creat Ratio 12.6 RATIO (10-20); Calcium,Total 8.1 mg/dL (8.5-10.1); Chloride 105 mmol/L (98-107); Cholesterol 194 mg/dL (200); Creatinine, Serum 0.72 mg/dL (0.55-1.02); EST Glomerular Filtration Rate 85 mL/min (>60); Est Glom Filt Rate - Afr Amer 103 mL/min (>60); Globulin 3.7 g/dL (2.2-4.2); Glucose 177 mg/dL (74-106); High Density Lipoprotein 87 mg/dL; Magnesium 2.1 mg/dL (1.6-2.6); Partial Thromboplast Time 42.5 Seconds (24.1-36.2); Potassium 4.5 mmol/L (3.5-5.1); Protein, Total 6.6 g/dL (6.4-8.2); Sodium Level 138 mmol/L (136-145); Triglycerides 68 mg/dL; Very Low Density Lipoprotein 14 mg/dL (5-40)
[2019-06-20] MEDS: Vancomycin IV 1,000 MG/200 ML BAG 200 MG IV ×3 (08:22→19:42)
[2019-06-20] MEDS: 0.9% Normal Saline 1,000 ML 125 ML IV ×2 (08:23→16:18)
[2019-06-20 08:41] LABS: Allen Test POS; Base Excess 3 mmol/L (-2 to +2); Bicarbonate 28.5 mmol/L (22-26); Blood Gas Specimen Type ART; FI02 45; PO2 99 mmHG (75-100); SITE L Radial; SO2 97 % (95-99); Time Given 834; Total Carbon Dioxide 30 mmol/L; pCO2 52.6 mmHg (35-45); pH 7.34 (7.35-7.45)
[2019-06-20] MEDS: Albuterol 2.5 MG/3 ML VIAL.NEB. INHALATION (09:18)
[2019-06-20] MEDS: HEPARIN/D5w 25,000 UNITS 25,000 UNITS/250 ML IV.SOLN. 11 UNITS IV (09:23)
--- NOTE | 2019-06-20 10:11 | NURSING ---
patient arrived from [facility] with port accessed, unable to draw blood so removed access. Tried to re-access port without success, no blood return noted so removed needle and established IV access instead. Dr. Vyas notified of all of this.
[2019-06-20] MEDS: Ipratropium/Albuterol Sulfate 3 ML AMPUL.NEB INHALATION ×4 (11:03→23:20)
--- NOTE | 2019-06-20 11:17 | EKG12_ITS ---
Test Reason : RHYTHM CHECK Blood Pressure : / mmHG Vent. Rate : 082 BPM Atrial Rate : 082 BPM P-R Int : 148 ms QRS Dur : 070 ms QT Int : 420 ms P-R-T Axes : 070 060 228 degrees QTc Int : 490 ms Normal sinus rhythm Indeterminate axis Low voltage QRS (Limb Leads) T wave abnormality, consider inferolateral ischemia Abnormal ECG Confirmed by KAUR SALDIVAR, FIOR ([id number]), online editor KATLYN ALBERTO ([id number] on 06/24/2019 1:33:13 PM Referred By: DR. CAPELLAN Confirmed By:FIOR DIETRICH MD
--- NOTE | 2019-06-20 11:25 | PCM.RX.CS ---
Consult Pharmacy has been consulted to manage selected antiobiotic: Vancomycin Type of Consult: New start Suspected Infection: Pneumonia Labs: Sodium 138 mmol/L (136-145) 06/20/19 07:40 Potassium 4.5 mmol/L (3.5-5.1) 06/20/19 07:40 Chloride 105 mmol/L (98-107) 06/20/19 07:40 Carbon Dioxide 28.0 mmol/L (21.0-32.0) 06/20/19 07:40 Anion Gap 5 (5-15) 06/20/19 07:40 BUN 9 mg/dL (7-18) 06/20/19 07:40 Creatinine 0.72 mg/dL (0.55-1.02) 06/20/19 07:40 Est GFR (MDRD) Af Amer 103 mL/min (>60) 06/20/19 07:40 Est GFR (MDRD) Non-Af 85 mL/min (>60) 06/20/19 07:40 BUN/Creatinine Ratio 12.6 RATIO (10-20) 06/20/19 07:40 Glucose 177 mg/dL (74-106) H 06/20/19 07:40 Microbiology: Microbiology 06/20/19 08:20 Mucosa - Nasopharyngeal Respiratory Panel (PCR) - Final RSV A 06/20/19 09:00 Urine Catheter - Catheter Legionella Antigen - Final 06/20/19 09:00 Urine Catheter - Catheter Streptococcus pneumoniae Antigen (M - Final Weight used for dosin kg Estimated Creatinine Clearance: 67ml/min Goal Trough: 15-20 mcg/mL Pharmacy Plan for Drug Dosing: Pt admitted to ICU on the morning of 06/20/19 for pneumonia and sepsis. Pt was given a x1 loading dose of Vancomycin 2000mg on 06/20/19 at 0822. Initial dosing recommendation based on weight and calculated CrCl is for Vancomycin 1000mg IV q12h. Initial maintenance dose will start on 06/20/19 at 2000. Trough will be drawn before the 4th total dose on 06/21/19 at 1930. Pharmacy will adjust dose based on that level. Pharmacy Service will continue to monitor and adjust dosing as required. Follow-Up Labs: Trough Vancomycin - 06/21/19 @ 1930
--- NOTE | 2019-06-20 11:38 | PCM.CONS.C ---
Reason for Consult Date of Consultation: 06/20/19 History of Present Illness: The patient is a 73 year old F [significant for having right breast CA for which she is on adjuvant chemotherapy with tamoxifen, history of chronic tobacco use, history of hypothyroidism and chronic alcohol abuse showed from [facility] in [place] to our hospital for management of acute exacerbation of COPD impending respiratory failure for critical care services. Patient remains on BiPAP at the time of my evaluation and tolerating it well and history is obtained with the patient's family at the bedside as well as nursing staff and existing medical records. There is no prior history of coronary artery disease. No recent work-up for ischemic heart disease. Patient had no symptoms of chest discomfort but she got progressively short of breath and subsequently taken to [facility] where she was diagnosed to be having acute exacerbation of COPD and subsequently transferred to our hospital. Following with an oncologist right breast CA unfortunately she continues to smoke 1/4 pack of cigarettes a day] Though pt was claustrophobic earlier in the admission but now she was able to tolerate the BiPAP with much ease and feels comfortable. Past Medical History Allergies/Adverse Reactions: Allergies No Known Allergies Allergy (Verified 05/12/19 11:06) Home Medications: Ambulatory Orders Medication Instructions Recorded Albuterol Aerosols [Ventolin 1 puff INHALATION DAILY 10/21/17 Aerosols] Albuterol Inhaler [Ventolin Hfa] 1 puff INHALATION DAILY 10/21/17 Fluticasone/Vilanterol [Breo 1 puff INHALATION QODAY 10/21/17 Ellipta 200-25 Mcg INH] Lidocaine/Prilocaine 30 gm TP DAILY PRN PRN 30 Days #1 10/30/17 [Lidocaine-Prilocaine Cream] cream..g. Loratadine/Pseudo 240/10 PO DAILY 09/24/18 [Claritin-D 24 Hr] Levothyroxine [Synthroid] 137 mcg PO DAILY 05/12/19 Tamoxifen Citrate [Nolvadex] 20 mg PO DAILY #90 tab 05/12/19 Past Medical History (Chronic Problems): Chronic Problems (Last Reviewed 06/20/19 @ 09:45 by Mike Pope MD) Breast cancer, right breast (Chronic) Chemotherapy-induced nausea (Chronic) Asthma with COPD (Chronic) Tobacco use (Chronic) History of alcohol abuse (Chronic) Prediabetes (Chronic) Hypothyroidism (acquired) (Chronic) Antineoplastic chemotherapy induced anemia (Chronic) Tobacco use disorder, continuous (Chronic) Surgical History: - Psychiatric History: No pertinent psych hx PACK CHANGER History: No pertinent PACK CHANGER history - *Family History Maternal Family History: Family History (Last Reviewed 06/20/19 @ 09:46 by Mike Pope MD) Brother Cancer Father Lung cancer Aunt Cancer Paternal Family History: Family History (Last Reviewed 06/20/19 @ 09:46 by Mike Pope MD) Brother Cancer Father Lung cancer Aunt Cancer History Items: - - She notes a paternal family history of lung cancer but is unclear the type and states that it was outside the lung but progressed into the lung. Smoking Status: Current every day smoker Review of Systems - Review of Systems General: Denies: Fever, Night Sweats, Fatigue Cardiovascular: Denies: Chest Discomfort, Shortness of Breath, Orthopnea, PND, Peripheral Edema, Palpitations, Lightheadedness, Dizziness, Near Syncope, Syncope Respiratory: Reports: Non Productive Cough, Shortness of Breath. Denies: Cough, Sputum Production, Hemoptysis Gastrointestinal: Denies: Hematemesis, Hematochezia, Melena Genitourinary: Denies: Dysuria, Hematuria Skin: Denies: Rash Objective: Vital Signs Temp Pulse Resp BP Pulse Ox 99 F 81 23 H 91/64 100 06/20/19 07:00 06/20/19 11:03 06/20/19 11:03 06/20/19 10:00 06/20/19 11:01 Oxygen Delivery Method Bi-pap Weight: 166 lb 14.239 oz Body Mass Index (BMI) 26.9 Intake and Output for Last 24 Hours 06/18/19 06/19/19 06/20/19 23:59 23:59 23:59 Intake Total 400 / 400 Balance 400 / 400 06/20/19 07:40: Sodium 138, Potassium 4.5, Chloride 105, Carbon Dioxide 28.0, Anion Gap 5, BUN 9, Creatinine 0.72, Est GFR (MDRD) Af Amer 103, Est GFR (MDRD) Non-Af 85, BUN/Creatinine Ratio 12.6, Glucose 177 H, Calcium 8.1 L, Magnesium 2.1, Total Bilirubin 0.30, Triglycerides 68, Cholesterol 194, LDL Cholesterol 93, VLDL Cholesterol 14, HDL Cholesterol 87 06/20/19 07:40: WBC 5.1, RBC 3.62 L, Hgb 11.7 L, Hct 36.0 L, MCV 99.4 H, MCH 32.3 H, MCHC 32.5, Plt Count 195, MPV 9.2 06/20/19 07:40: PT 13.5, INR 1.1, APTT 42.5 H 06/20/19 07:40: Lactic Acid 1.0 06/20/19 07:40: Troponin I 0.377 H 06/20/19 08:35: pH 7.34 L, Bicarbonate Actual 28.5 H, POC Total CO2 30, Base Excess 3 H, O2 Saturation 97, ABG pCO2 52.6 H, ABG pO2 99, José Miguel Test POS 06/20/19 11:10: Troponin I 0.383 H Rhythm: EKG: Performed at my request this morning showed sinus rhythm rate of 82 beats a minute with low voltage second underlying COPD and poor R wave progression possibly secondary to underlying COPD but there is evidence of T wave inversions in the anterior precordial leads and inferior limb leads suggesting inferior and anterior wall ischemia and possibly old anterior infarction as well. ECHO:pending Stress Test:NOne Cardiac Cath:NONE PCI: CT Surgery: Holter monitor: EPS: PPM: CXR: Chest CT Scan: Assessment/Plan Acute respiratory failure secondary to possible committee acquired pneumonia and acute exacerbation of COPD. This will be addressed by Dr. Vyas from pulmonary services and critical care services. 2. Sinus tachycardia with significantly improved once her respiratory status improved however the EKG that was performed this morning showed evidence of poor R wave progression with T wave inversions in the inferior as well as anterior leads sizing of underlying ischemic heart disease. Though patient has no symptoms of chest discomfort the patient's family in particular the son would like to have a functional to be done prior to the hospital discharge to assess for any underlying ischemic heart disease. The troponins were elevated indicating either demand ischemia or a true non-ST elevation myocardial infarction but will follow through the trend. For now I do agree to continue patient on IV heparin for the next 48 hours. I was requested and pending at the time of this evaluation and a very significant wall motion of normalities then she would probably merit invasive evaluation bypassing the functional study and this will be addressed by my colleagues tomorrow. Will start patient on a small dose of statin therapy. 3. Stage IIb breast cancer for which she remains on tamoxifen 4. Chronic active smoking will reinforce importance quitting smoking completely consider giving her Wellbutrin and nicotine replacement therapy to help in her efforts to quit smoking
[2019-06-20 15:19] LABS: Partial Thromboplast Time 47.6 Seconds (24.1-36.2)
--- NOTE | 2019-06-20 15:28 | CPS ---
Patient asked to take a break from Bipap. Patient put back on Airvo for approximately 30 seconds and stated, I now realize what that Bipap was doing for me and need it back on.. Patient immediately placed back on Bipap.
[2019-06-20] MEDS: 0.9% Saline Lock 10 ML Syringe IV (16:17)
[2019-06-20] MEDS: Heparin Injection (Vial) 5,000 UNIT/ML VIAL IV (16:17)
[2019-06-20 16:48] LABS: M R Staph aureus DNA By PCR Negative (Negative); Probe Check PASS; Specimen Processing Control PASS
[2019-06-20] MEDS: Acetaminophen 325 MG Tablet 650 MG PO (19:50)
[2019-06-20] MEDS: Famotidine 20 MG Tablet PO (21:17)
[2019-06-20 22:23] LABS: Partial Thromboplast Time 71.9 Seconds (24.1-36.2)
[2019-06-21] VITALS (53 sets, daily range): BP systolic 71–122; BP diastolic 47–74; PULSE 48–116; RESP 14–27; TEMP 36.8–37.7; O2SAT 10–100
--- NOTE | 2019-06-21 01:12 | NURSING ---
0112 Dr. Bueno at the bedside 0112 Versed 4mg IV given, Etomidate 20 mg IV given 0115 #8, 24 @ lip placed by Dr. Bueno 0116 bilateral breath sounds 0116 propofol and fentanyl gtts started Per Dr. Bueno 0120 Dr. Bueno gave this RN a verbal order to use Cath flow for port since unable to draw blood 0120 OG placed 0135 portable CXR obtained 0140 Dr. bueno called to view xray, gave orders for RT to pull tube back 1 cm
[2019-06-21] MEDS: Propofol 10MG/Ml 1,000 MG/100 ML Bottle 4.5 MG CONT INF (01:16)
[2019-06-21] MEDS: fentaNYL drip 100 ML 2.5 MCG IV (01:16)
[2019-06-21] MEDS: 0.9% Normal Saline 1,000 ML 125 ML IV ×3 (01:24→20:29)
[2019-06-21] MEDS: Etomidate 20 MG/10 ML Vial IV (01:24)
[2019-06-21] MEDS: Midazolam 2 MG/2 ML Syringe 4 MG IV (01:24)
--- NOTE | 2019-06-21 01:25 | RAD_ITS ---
STUDY: X-RAY - ABDOMEN/PELVIS REASON FOR EXAM: Female, 73 years old. confirm NG placement TECHNIQUE: AP supine and decubitus views of the abdomen and pelvis. COMPARISON: None. FINDINGS: Lung bases reveal mild left basilar atelectasis. There is a nasogastric tube with the tip projecting over the gastric fundus and sidehole at the EG junction. There is nonspecific increase gas pattern and distention of small bowel. There is no demonstrated free abdominal air. The visualized liver, spleen and kidneys are grossly normal in size and morphology. Normal soft tissue structures. Normal visualized osseous structures. RAD/Abdomen Single View (Portable) IMPRESSION: Nasogastric tube is described above, recommend advancing the tube approximately 6.1 cm Left basilar atelectasis. Mild distention of small bowel. Electronically Signed: Christy Peter MD at 2:08 EST , Service support ,
--- NOTE | 2019-06-21 01:25 | RAD_ITS ---
STUDY: X-RAY CHEST REASON FOR EXAM: Female, 73 years old. ETT placement TECHNIQUE: Single AP portable view of the chest. COMPARISON: 06/25/2018. FINDINGS: There is an endotracheal tube with the tip projecting 3 cm above domenic. There is a left-sided chest port with the tip in the distal SVC. The lungs are clear and expanded. There is no demonstrated pleural abnormality. Normal size heart. Normal mediastinum and rah. Normal visualized pulmonary arteries. There is atherosclerotic calcification of the aortic arch with tortuosity. There are diffuse degenerative changes of the visualized thoracic spine. There is degenerative osteoarthritis of the bilateral shoulders. There is no demonstrated abnormality of the visualized soft tissue structures of the upper abdomen. RAD/Chest 1 View (Portable) IMPRESSION: No acute cardiopulmonary disease. Electronically Signed: Christy Peter MD at 2:08 EST , Service support ,
[2019-06-21] MEDS: 0.9% Saline Lock 10 ML Syringe IV ×5 (01:27→21:18)
--- NOTE | 2019-06-21 01:43 | PCM.HOSP.N ---
Hospitalist Note Intubation Note: Patient with evidence of respiratory and/or impending distress. Medications administered: Etomidate 20 mg, Versed 4 mg. ETT size: 8 Patient intubated in standard fashion with visualization of the vocal cords and passage of the ETT. Positioning verified with auscultation. Post-intubation CXR requested. Patient maintained in the ICU with ongoing consultation with ICU physician. Will initiate propofol and fentanyl sedation and continue on vent with ABG, repeat chest x-ray in a.m. and chest x-ray now for verification of position with OG placement as well. Code Visit Procedures: [id number] Insert Emergency Airway
[2019-06-21] MEDS: HEPARIN/D5w 25,000 UNITS 25,000 UNITS/250 ML IV.SOLN. 12 UNITS IV (04:09)
[2019-06-21 04:24] LABS: Absolute Lymphocyte Count 0.35 X10^3/uL (0.83-4.51); Absolute Neutrophil Count 6.2 X10^3/uL (2.0-7.7); Eosinophil# 0.21 X10^3/uL; Eosinophils% 2.9 % (0-5); Hematocrit 31.5 % (37-47); Lymphocyte # 0.35 X10^3/ul (4.0); Lymphocyte % 4.8 % (19-41); Mean Corp Hgb Conc 31.7 g/dL (32-36); Mean Corpuscular Hgb 32.1 pg (27.0-32.0); Mean Platelet Vol. 9.4 fl (6.2-12.0); Monocyte# 0.43 X10^3/uL; Monocyte% 5.9 % (0-10); NRBC Flagged by Analyzer 0 % (0-5); Neutrophil # 6.21 X10^3/uL (2.7-7.7); Neutrophil % 85.8 % (47-70); POSITIVE DIFFERENTIAL YES; Platelet Count 175 K/mm3 (150-450); RBC Distribution Width CV 14.8 % (11.6-14.6); RBC Distribution Width SD 54.5 fl (35.1-43.9); Red Blood Count 3.12 M/mm3 (4.2-5.4); White Blood Count 7.2 K/mm3 (4.4-11.0)
[2019-06-21 04:31] LABS: Differential Indicated SCAN CRITERIA MET
[2019-06-21 04:39] LABS: Anion Gap 3 (5-15); BUN 11 mg/dL (7-18); Calcium,Total 7.6 mg/dL (8.5-10.1); Chloride 106 mmol/L (98-107); Creatinine, Serum 0.79 mg/dL (0.55-1.02); EST Glomerular Filtration Rate 77 mL/min (>60); Est Glom Filt Rate - Afr Amer 93 mL/min (>60); Glucose 161 mg/dL (74-106); Potassium 4.3 mmol/L (3.5-5.1); Sodium Level 138 mmol/L (136-145)
[2019-06-21 05:04] LABS: Differential Comment SCANNED
[2019-06-21 05:22] LABS: Partial Thromboplast Time 92.1 Seconds (24.1-36.2)
[2019-06-21] MEDS: Chlorhexidine 15 ML PO ×3 (05:49→21:16)
--- NOTE | 2019-06-21 05:55 | EKG12_ITS ---
Test Reason : AM Blood Pressure : / mmHG Vent. Rate : 072 BPM Atrial Rate : 072 BPM P-R Int : 138 ms QRS Dur : 072 ms QT Int : 512 ms P-R-T Axes : 004 107 223 degrees QTc Int : 560 ms Sinus rhythm with occasional Premature ventricular complexes Marked T wave abnormality, consider anterolateral ischemia T- wave Abnormalty, consider inferior ischemia Prolonged QT Poor R- wave Progression Abnormal ECG Confirmed by KAUR SALDIVAR, FIOR ([id number]), editor in chief AMANDA WADE ([id number]) on 06/23/2019 10:29:40 AM Referred By: GENA Confirmed By:FIOR DIETRICH MD
[2019-06-21] MEDS: TITRATION PARAMETER CHANGE 1 EACH IV (06:08)
[2019-06-21 06:30] LABS: Allen Test POS; Base Excess 7 mmol/L (-2 to +2); Bicarbonate 31.5 mmol/L (22-26); Blood Gas Specimen Type ART; FI02 60; Mode A-C; O2 Delivery Device Vent; PEEP 5; PO2 283 mmHG (75-100); RR 17; SITE L Radial; SO2 100 % (95-99); Total Carbon Dioxide 33 mmol/L; Vt 450; pCO2 50.2 mmHg (35-45); pH 7.41 (7.35-7.45)
[2019-06-21] MEDS: Ipratropium/Albuterol Sulfate 3 ML AMPUL.NEB INHALATION ×5 (06:35→23:35)
--- NOTE | 2019-06-21 06:47 | CPS ---
results read back to dr. dominique
--- NOTE | 2019-06-21 06:54 | PCM.PN.INT ---
Subjective: Overnight, patient became fatigued from a respiratory standpoint and did require intubation. Patient's respiratory effort is much improved following intubation per nursing and patient response. Patient did have an OG in place, but reportedly could not tolerate, so this was removed. General: Alert, Cooperative, No apparent distress - Good vent synchrony, - - Appears stated age. Following commands. HEENT: Atraumatic, PERRLA, EOMI, Normocephalic, - - No scleral icterus or injection noted Oral: Moist Mucosa, No Gingival or Mucosal Lesions/ Ulcerations Neck: Supple, No JVD, No Nodes, Trachea Midline Lungs: No rhonchi, No rales, Diminished, Wheezes, - - Symmetric expansion. No dullness to percussion. Repeat ABG shows adequate oxygenation and ventilation Cardiovascular: Normal S1, Normal S2, No murmurs, Irregular Rate, No rub noted, No Gallop, - - Several PACs noted on telemetry Abdomen: Bowel Sounds Present, Soft, Non Tender, Non-Distended Extremities: No clubbing, No cyanosis, No edema, Capillary Refill Less than 3 Seconds Skin: No rashes, No breakdown Musculoskeletal: No Tenderness to Palpation of Joints or Extremities Lymphatic: No Cervical, Supraclavicular, or Inguinal Adenopathy Neurological: Cranial nerves II-XII grossly intact, Neuro grossly intact, Motor Exam 5/5 strength throughout Psych/Mental Status: Normal Affect, Appropriate Vital Signs Temp Pulse Resp BP Pulse Ox 37.2 C 77 17 90/60 100 06/21/19 04:00 06/21/19 06:00 06/21/19 06:00 06/21/19 06:00 06/21/19 06:00 Oxygen Delivery Method Mechanical Ventilator Weight: 72.9 kg Body Mass Index (BMI) 26.9 Intake and Output for Last 24 Hours 06/19/19 06/20/19 06/21/19 23:59 23:59 23:59 Intake Total 1989.43 / 2239.43 1613.31 / 1613.31 Output Total 1550 / 1750 400 / 400 Balance 439.43 / 489.43 1213.31 / 1213.31 Labs (Last 48 Hours) 06/20/19 06/20/19 06/20/19 07:40 07:40 07:40 WBC 5.1 RBC 3.62 L Hgb 11.7 L Hct 36.0 L MCV 99.4 H MCH 32.3 H MCHC 32.5 RDW Std Deviation 52.8 H RDW Coeff of Ermelinda 14.4 Plt Count 195 MPV 9.2 Immature Gran % (Auto) Neut % (Auto) Lymph % (Auto) [place] % (Auto) Eos % (Auto) Baso % (Auto) Absolute Neuts (auto) Absolute Lymphs (auto) Nucleated RBC % Differential Comment PT 13.5 INR 1.1 APTT 42.5 H Specimen Type Sample Site pH Bicarbonate Actual POC Total CO2 Base Excess O2 Saturation O2 % ABG pCO2 ABG pO2 José Miguel Test Respiration Rate O2 Delivery Device Minute Volume Vent Mode Tidal Volume POC PEEP Blood Gas Notified Whom Blood Gas Notified Time Sodium 138 Potassium 4.5 Chloride 105 Carbon Dioxide 28.0 Anion Gap 5 BUN 9 Creatinine 0.72 Estim Creat Clear Calc Est GFR (MDRD) Af Amer 103 Est GFR (MDRD) Non-Af 85 BUN/Creatinine Ratio 12.6 Glucose 177 H Lactic Acid Calcium 8.1 L Magnesium 2.1 Total Bilirubin 0.30 AST 11 L ALT 20 Alkaline Phosphatase 75 Troponin I Total Protein 6.6 Albumin 2.9 L Globulin 3.7 Albumin/Globulin Ratio 0.8 L Triglycerides 68 Cholesterol 194 LDL Cholesterol 93 VLDL Cholesterol 14 HDL Cholesterol 87 MRSA (PCR) 06/20/19 06/20/19 06/20/19 07:40 07:40 08:35 WBC RBC Hgb Hct MCV MCH MCHC RDW Std Deviation RDW Coeff of Ermelinda Plt Count MPV Immature Gran % (Auto) Neut % (Auto) Lymph % (Auto) [place] % (Auto) Eos % (Auto) Baso % (Auto) Absolute Neuts (auto) Absolute Lymphs (auto) Nucleated RBC % Differential Comment PT INR APTT Specimen Type ART Sample Site L Radial pH 7.34 L Bicarbonate Actual 28.5 H POC Total CO2 30 Base Excess 3 H O2 Saturation 97 O2 % 45 ABG pCO2 52.6 H ABG pO2 99 José Miguel Test POS Respiration Rate O2 Delivery Device Bi / C PAP Minute Volume Vent Mode Tidal Volume POC PEEP Blood Gas Notified Whom ICU MD Blood Gas Notified Time 834 Sodium Potassium Chloride Carbon Dioxide Anion Gap BUN Creatinine Estim Creat Clear Calc Est GFR (MDRD) Af Amer Est GFR (MDRD) Non-Af BUN/Creatinine Ratio Glucose Lactic Acid 1.0 Calcium Magnesium Total Bilirubin AST ALT Alkaline Phosphatase Troponin I 0.377 H Total Protein Albumin Globulin Albumin/Globulin Ratio Triglycerides Cholesterol LDL Cholesterol VLDL Cholesterol HDL Cholesterol MRSA (PCR) 06/20/19 06/20/19 06/20/19 11:10 14:30 14:30 WBC RBC Hgb Hct MCV MCH MCHC RDW Std Deviation RDW Coeff of Ermelinda Plt Count MPV Immature Gran % (Auto) Neut % (Auto) Lymph % (Auto) [place] % (Auto) Eos % (Auto) Baso % (Auto) Absolute Neuts (auto) Absolute Lymphs (auto) Nucleated RBC % Differential Comment PT INR APTT Specimen Type Sample Site pH Bicarbonate Actual POC Total CO2 Base Excess O2 Saturation O2 % ABG pCO2 ABG pO2 José Miguel Test Respiration Rate O2 Delivery Device Minute Volume Vent Mode Tidal Volume POC PEEP Blood Gas Notified Whom Blood Gas Notified Time Sodium Potassium Chloride Carbon Dioxide Anion Gap BUN Creatinine Estim Creat Clear Calc Est GFR (MDRD) Af Amer Est GFR (MDRD) Non-Af BUN/Creatinine Ratio Glucose Lactic Acid Calcium Magnesium Total Bilirubin AST ALT Alkaline Phosphatase Troponin I 0.383 H 0.374 H Total Protein Albumin Globulin Albumin/Globulin Ratio Triglycerides Cholesterol LDL Cholesterol VLDL Cholesterol HDL Cholesterol MRSA (PCR) Negative 06/20/19 06/20/19 06/20/19 14:30 15:00 21:50 WBC RBC Hgb Hct MCV MCH MCHC RDW Std Deviation RDW Coeff of Ermelinda Plt Count MPV Immature Gran % (Auto) Neut % (Auto) Lymph % (Auto) [place] % (Auto) Eos % (Auto) Baso % (Auto) Absolute Neuts (auto) Absolute Lymphs (auto) Nucleated RBC % Differential Comment PT INR APTT Cancelled 47.6 H 71.9 H Specimen Type Sample Site pH Bicarbonate Actual POC Total CO2 Base Excess O2 Saturation O2 % ABG pCO2 ABG pO2 José Miguel Test Respiration Rate O2 Delivery Device Minute Volume Vent Mode Tidal Volume POC PEEP Blood Gas Notified Whom Blood Gas Notified Time Sodium Potassium Chloride Carbon Dioxide Anion Gap BUN Creatinine Estim Creat Clear Calc Est GFR (MDRD) Af Amer Est GFR (MDRD) Non-Af BUN/Creatinine Ratio Glucose Lactic Acid Calcium Magnesium Total Bilirubin AST ALT Alkaline Phosphatase Troponin I Total Protein Albumin Globulin Albumin/Globulin Ratio Triglycerides Cholesterol LDL Cholesterol VLDL Cholesterol HDL Cholesterol MRSA (PCR) 06/21/19 06/21/19 06/21/19 04:15 04:15 04:15 WBC 7.2 RBC 3.12 L Hgb 10.0 L Hct 31.5 L MCV 101.0 H MCH 32.1 H MCHC 31.7 L RDW Std Deviation 54.5 H RDW Coeff of Ermelinda 14.8 H Plt Count 175 MPV 9.4 Immature Gran % (Auto) 0.600 Neut % (Auto) 85.8 H Lymph % (Auto) 4.8 L [place] % (Auto) 5.9 Eos % (Auto) 2.9 Baso % (Auto) 0.0 Absolute Neuts (auto) 6.2 Absolute Lymphs (auto) 0.35 L Nucleated RBC % 0 Differential Comment SCANNED PT INR APTT 92.1 H* Specimen Type Sample Site pH Bicarbonate Actual POC Total CO2 Base Excess O2 Saturation O2 % ABG pCO2 ABG pO2 José Miguel Test Respiration Rate O2 Delivery Device Minute Volume Vent Mode Tidal Volume POC PEEP Blood Gas Notified Whom Blood Gas Notified Time Sodium 138 Potassium 4.3 Chloride 106 Carbon Dioxide 29.0 Anion Gap 3 L BUN 11 Creatinine 0.79 Estim Creat Clear Calc 48.30 Est GFR (MDRD) Af Amer 93 Est GFR (MDRD) Non-Af 77 BUN/Creatinine Ratio 14.0 Glucose 161 H Lactic Acid Calcium 7.6 L Magnesium Total Bilirubin AST ALT Alkaline Phosphatase Troponin I Total Protein Albumin Globulin Albumin/Globulin Ratio Triglycerides Cholesterol LDL Cholesterol VLDL Cholesterol HDL Cholesterol MRSA (PCR) 06/21/19 06:19 WBC RBC Hgb Hct MCV MCH MCHC RDW Std Deviation RDW Coeff of Ermelinda Plt Count MPV Immature Gran % (Auto) Neut % (Auto) Lymph % (Auto) [place] % (Auto) Eos % (Auto) Baso % (Auto) Absolute Neuts (auto) Absolute Lymphs (auto) Nucleated RBC % Differential Comment PT INR APTT Specimen Type ART Sample Site L Radial pH 7.41 Bicarbonate Actual 31.5 H POC Total CO2 33 Base Excess 7 H O2 Saturation 100 H O2 % 60 ABG pCO2 50.2 H ABG pO2 283 H José Miguel Test POS Respiration Rate 17 O2 Delivery Device Vent Minute Volume 7.00 Vent Mode A-C Tidal Volume 450 POC PEEP 5 Blood Gas Notified Whom ICU MD Blood Gas Notified Time Sodium Potassium Chloride Carbon Dioxide Anion Gap BUN Creatinine Estim Creat Clear Calc Est GFR (MDRD) Af Amer Est GFR (MDRD) Non-Af BUN/Creatinine Ratio Glucose Lactic Acid Calcium Magnesium Total Bilirubin AST ALT Alkaline Phosphatase Troponin I Total Protein Albumin Globulin Albumin/Globulin Ratio Triglycerides Cholesterol LDL Cholesterol VLDL Cholesterol HDL Cholesterol MRSA (PCR) Microbiology 06/20/19 08:20 Mucosa - Nasopharyngeal Respiratory Panel (PCR) - Final RSV A 06/20/19 09:00 Urine Catheter - Catheter Legionella Antigen - Final 06/20/19 09:00 Urine Catheter - Catheter Streptococcus pneumoniae Antigen (M - Final Clinical Impression(s) from Imaging Studies Chest X-Ray 06/21/19 01:25 IMPRESSION: No acute cardiopulmonary disease. Electronically Signed: Christy Peter MD at 2:08 EST , Service support , KUB X-Ray 06/21/19 01:25 IMPRESSION: Nasogastric tube is described above, recommend advancing the tube approximately 6.1 cm Left basilar atelectasis. Mild distention of small bowel. Electronically Signed: Christy Peter MD at 2:08 EST , Service support , Medical Necessity - Tobacco Use Smoking Status: Current every day smoker Tobacco Use: Cigarettes Assessment/Plan All Active Problems (Last Reviewed 06/20/19 @ 09:45 by Mike Pope MD) Encounter for insertion of venous access port (Resolved) Exertional dyspnea (Acute) Sore throat (Resolved) Perineal pain (Resolved) Diarrhea (Resolved) Nausea vomiting and diarrhea (Resolved) Large bowel obstruction (Resolved) Ileus (Resolved) Hypokalemia due to loss of potassium (Resolved) RECOMMENDATIONS: 1. Continue mechanical ventilation. Wean FiO2 to maintain oxygen saturations at or above 90%. 2. Continue scheduled bronchodilators and IV steroids. 3. Continue empiric broad-spectrum antimicrobials, pending infectious work-up. 4. Await blood, urine and sputum cultures. Check MRSA panel. 5. Spontaneous awakening and breathing trials per protocol 6. Possibly place OG later today IMPRESSIONS: 1. Acute hypoxemic and hypercarbic respiratory failure secondary to COPD exacerbation secondary to RSV Extent of respiratory insult is unclear at this time. 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 Patient does have pending cultures at this time. Would continue with empiric antibiotics ending the results of these cultures. Likely discontinue antibiotics at 48 hours if negative. Continue with bronchodilators and steroids. Echocardiogram is currently pending for possible secondary cause. Patient CT scan did not show any pulmonary emboli. 2. Personal history of stage IIb right breast cancer The patient is currently followed by Dr. Hoyt of oncology and is currently being maintained on adjuvant tamoxifen therapy. 3. 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 Continue Synthroid. Nicotine replacement therapy can be offered to the patient while admitted to the hospital. The patient wishes to remain full CODE STATUS at this time. TIME: 33 minutes of critical care time was spent addressing the patient's acute hypoxemic and hypercarbic respiratory failure, presumptive community-acquired pneumonia, COPD with exacerbation, history of breast cancer, history of Langerhan cell histiocytosis, tobacco dependency, review of all data and collaboration with the care team. (5:45 AM to 6:45 AM) Code Visit 9xxxx: [id number] Critical care first hour
--- NOTE | 2019-06-21 08:20 | PN_ITS ---
Reason for Visit: Follow-up on acute respiratory failure Subjective: Patient was seen and examined. She was intubated last night for worsening respiratory failure. She is awake, lightly sedated, able to respond to commands with a nod of the head, cooperative. Vitals/I&O's: Vital Signs Temp Pulse Resp BP Pulse Ox 99.0 F 70 14 81/51 L 10 06/21/19 04:00 06/21/19 07:00 06/21/19 07:00 06/21/19 07:00 06/21/19 07:00 Oxygen Delivery Method Mechanical Ventilator Weight: 72.9 kg Body Mass Index (BMI) 26.9 Intake and Output for Last 24 Hours 06/19/19 06/20/19 06/21/19 23:59 23:59 23:59 Intake Total 1989.43 / 2239.43 1627.71 / 1627.71 Output Total 1550 / 1750 400 / 400 Balance 439.43 / 489.43 1227.71 / 1227.71 General: Alert, Cooperative, - - intubated, on mechanical ventilation, Fi02 60%, PEEP 5 HEENT: Atraumatic, PERRLA, EOMI, Normocephalic Oral: Moist Mucosa Neck: Supple Lungs: Diminished, Wheezes - +++ Cardiovascular: Regular rate, Regular Rhythm, Normal S1, Normal S2 Abdomen: Bowel Sounds Present, Soft, Non Tender, Non-Distended, No Hepato- splenomegaly Extremities: No edema, Capillary Refill Less than 3 Seconds Skin: No rashes, - - IV on right foot Musculoskeletal: No Tenderness to Palpation of Joints or Extremities Lymphatic: No Cervical, Supraclavicular, or Inguinal Adenopathy Neurological: Cranial nerves II-XII grossly intact, Neuro grossly intact Psych/Mental Status: Normal Affect, Appropriate Microbiology Past 72 Hours 06/20/19 08:20 Mucosa - Nasopharyngeal Respiratory Panel (PCR) - Final RSV A 06/20/19 09:00 Urine Catheter - Catheter Legionella Antigen - Final 06/20/19 09:00 Urine Catheter - Catheter Streptococcus pneumoniae Antigen (M - Final Laboratory Results 06/20/19 07:40: Troponin I 0.377 H 06/20/19 08:35: Specimen Type ART, Sample Site L Radial, pH 7.34 L, Bicarbonate Actual 28.5 H, POC Total CO2 30, Base Excess 3 H, O2 Saturation 97, O2 % 45, ABG pCO2 52.6 H, ABG pO2 99, José Miguel Test POS, O2 Delivery Device Bi / C PAP, Blood Gas Notified Whom ICU , Blood Gas Notified Time 834 06/20/19 11:10: Troponin I 0.383 H 06/20/19 14:30: Troponin I 0.374 H 06/20/19 14:30: MRSA (PCR) Negative 06/20/19 14:30: APTT Cancelled 06/20/19 15:00: APTT 47.6 H 06/20/19 21:50: APTT 71.9 H 06/21/19 04:15: WBC 7.2, RBC 3.12 L, Hgb 10.0 L, Hct 31.5 L, MCV 101.0 H, MCH 32.1 H, MCHC 31.7 L, RDW Std Deviation 54.5 H, RDW Coeff of Ermelinda 14.8 H, Plt Count 175, MPV 9.4, Immature Gran % (Auto) 0.600, Neut % (Auto) 85.8 H, Lymph % (Auto) 4.8 L, [place] % (Auto) 5.9, Eos % (Auto) 2.9, Baso % (Auto) 0.0, Absolute Neuts (auto) 6.2, Absolute Lymphs (auto) 0.35 L, Nucleated RBC % 0, Differential Comment SCANNED 06/21/19 04:15: Sodium 138, Potassium 4.3, Chloride 106, Carbon Dioxide 29.0, Anion Gap 3 L, BUN 11, Creatinine 0.79, Estim Creat Clear Calc 48.30, Est GFR (MDRD) Af Amer 93, Est GFR (MDRD) Non-Af 77, BUN/Creatinine Ratio 14.0, Glucose 161 H, Calcium 7.6 L 06/21/19 04:15: APTT 92.1 H* 06/21/19 06:19: Specimen Type ART, Sample Site L Radial, pH 7.41, Bicarbonate Actual 31.5 H, POC Total CO2 33, Base Excess 7 H, O2 Saturation 100 H, O2 % 60, ABG pCO2 50.2 H, ABG pO2 283 H, José Miguel Test POS, Respiration Rate 17, O2 Delivery Device Vent, Minute Volume 7.00, Vent Mode A-C, Tidal Volume 450, POC PEEP 5, Blood Gas Notified Whom ICU MD Current Medications Acetaminophen (Tylenol) 650 mg PO Q6H PRN PRN PRN Reason: Pain Score 1-3/Temp > 100.7 F Last Admin: 06/20/19 19:50 Dose: 650 mg Documented by: Al Hydroxide/Mg Hydroxide (Mylanta Ii) 30 ml PO Q6H PRN PRN PRN Reason: Gastric Burning Albuterol Sulfate (Ventolin Aerosols) 2.5 mg INHALATION Q2H PRN PRN PRN Reason: dyspnea, wheezing Last Admin: 06/20/19 09:18 Dose: 2.5 mg Documented by: Albuterol/Ipratropium (Duoneb) 3 ml INHALATION Q4H.RT [facility] Last Admin: 06/21/19 06:35 Dose: 3 ml Documented by: Aspirin (Aspirin, Baby) 81 mg PO DAILY@0800 [facility] Last Admin: 06/20/19 09:47 Dose: Not Given Documented by: Chlorhexidine Gluconate () 15 ml PO BID [facility] Last Admin: 06/21/19 05:49 Dose: 15 ml Documented by: Dextrose (D50w Syringe) 0 gm IV X1 PRN; Protocol PRN Reason: Hypoglycemia Famotidine (Pepcid) 20 mg PO BID [facility] Last Admin: 06/20/19 21:17 Dose: 20 mg Documented by: Glucagon () 1 mg IM .X1 PRN PRN Reason: Hypoglycemia Guaifenesin (Robitussin) 10 ml PO Q4H PRN PRN PRN Reason: COUGH Heparin Sodium (Porcine) (Heparin Na) 0 unit IV UD PRN; Protocol Last Admin: 06/20/19 16:17 Dose: 1,000 unit Documented by: Hydralazine HCl (Apresoline Iv) 10 mg IV Q4H PRN PRN PRN Reason: SBP > 160 Piperacillin Sod/Tazobactam (Sod 3.375 gm/ Sodium Chloride) 50 mls @ 12.5 mls/hr IV Q8 [facility] Last Admin: 06/21/19 05:42 Dose: 12.5 mls/hr Documented by: Vancomycin IV Pharmacy to Dose (1 ea/ Sodium Chloride) 500 mls @ 250 mls/hr IV X1 PRN; Protocol PRN Reason: Rx to Dose Heparin Sodium/Dextrose () 25,000 units in 250 mls @ 11 mls/hr IV .[id number] [facility]; Protocol Last Titration: 06/21/19 05:23 Dose: 1,100 units/hr, 11 mls/hr Documented by: Sodium Chloride () 1,000 mls @ 125 mls/hr IV .Q8H [facility] Last Infusion: 06/21/19 05:55 Dose: 125 mls/hr Documented by: Vancomycin HCl (Vancomycin) 1,000 mg in 200 mls @ 200 mls/hr IV Q12H [facility] Last Infusion: 06/20/19 20:42 Dose: Infused Documented by: Sodium Chloride () 250 mls @ 15 mls/hr IV .[id number] PRN PRN Reason: Saline Flush Sodium Chloride () 250 mls @ 15 mls/hr IV .[id number] PRN PRN Reason: Additional IVPB Infusion Propofol (Diprivan) 1,000 mg in 100 mls @ 4.374 mls/hr CONT INF .Q12H [facility]; Protocol Last Titration: 06/21/19 07:00 Dose: 10 mcg/kg/min, 4.4 mls/hr Documented by: Fentanyl () 100 mls @ 2.5 mls/hr IV UD [facility]; Protocol Last Titration: 06/21/19 07:00 Dose: 100 mcg/hr, 10 mls/hr Documented by: Levothyroxine Sodium (Synthroid) 137 mcg PO DAILY@0600 [facility] Last Admin: 06/21/19 05:55 Dose: Not Given Documented by: Lorazepam (Ativan) 0.5 mg IV Q4H PRN PRN PRN Reason: anxiety with BIPAP Magnesium Hydroxide (Milk Of Magnesia) 30 ml PO DAILY PRN PRN PRN Reason: Constipation Methylprednisolone (Solu-Medrol) 40 mg IV Q8 [facility] Last Admin: 06/21/19 05:44 Dose: 40 mg Documented by: Nitroglycerin (Nitrostat) 0.4 mg SUBLINGUAL Q5M PRN PRN Reason: CARDIAC/CHEST PAIN Ondansetron HCl (Zofran) 4 mg IV Q8H PRN PRN PRN Reason: NAUSEA/VOMITING Prochlorperazine Edisylate (Compazine Iv) 5 mg IV Q4H PRN PRN PRN Reason: Breakthrough Nausea/Vomiting Sodium Chloride () 10 - 40 ml IV UD PRN PRN Reason: SALINE FLUSH Last Admin: 06/21/19 05:44 Dose: 20 ml Documented by: Tamoxifen Citrate (Nolvadex) 20 mg PO DAILY [facility] Last Admin: 06/20/19 09:48 Dose: Not Given Documented by: Throat Lozenges (Cepacol Sore Throat Lozenge) 1 lozenge MUCOUS MEM Q2H PRN PRN PRN Reason: Sore Throat/Cough STROKE Vital Signs/Narrative: Vital Signs Pulse Resp BP Pulse Ox 06/21/19 07:00 70 14 81/51 L 10 06/21/19 06:00 77 17 90/60 100 06/21/19 05:00 77 14 96/64 100 Medical Necessity - Tobacco Use Smoking Status: Current every day smoker Tobacco Use: Cigarettes Assessment/Plan All Active Problems (Last Reviewed 06/20/19 @ 09:45 by Mike Pope MD) Encounter for insertion of venous access port (Resolved) Exertional dyspnea (Acute) Sore throat (Resolved) Perineal pain (Resolved) Diarrhea (Resolved) Nausea vomiting and diarrhea (Resolved) Large bowel obstruction (Resolved) Ileus (Resolved) Hypokalemia due to loss of potassium (Resolved) 73-year-old female with past medical history of right breast CA, chronic respiratory failure, on 2 L of oxygen, COPD/Langerhans cell histiocytosis who was transferred from [facility] with progressive shortness of breath. 1. Acute hypoxic respiratory failure, likely secondary to RSV related COPD exacerbation Patient was intubated overnight, remains wheezy on exam RSV positive on respiratory panel, negative chest x-ray, blood cultures are pending, urine Legionella and streptococcal antigen negative On IV steroids, breathing treatments 2. Acute NSTEMI, with new T-wave inversions, persistent on telemetry On heparin drip, aspirin, cardiology consulted, continue to monitor 3. Suspected Community-acquired pneumonia, ruled out with negative chest x-ray here Marital screen is negative. On vancomycin and Zosyn 4. Right breast CA stage IIIb, follows in the outpatient with oncology 5. Hypothyroidism, continue on Synthroid 6. Tobacco dependence, advised to quit 7. DVT prophylaxis - On heparin drip 8. Code status: Full code Code Visit Inpatient E&M: 74669 Subs Hosp L2
--- NOTE | 2019-06-21 09:15 | PN.CARD_ITS ---
Subjectve: Patient seen and evaluated. Conscious but mildly sedated and intubated Objective: Vital Signs Temp Pulse Resp BP Pulse Ox 99.0 F 70 14 81/51 L 10 06/21/19 04:00 06/21/19 07:00 06/21/19 07:00 06/21/19 07:00 06/21/19 07:00 Oxygen Delivery Method Mechanical Ventilator Weight: 160 lb 11.472 oz Body Mass Index (BMI) 26.9 Intake and Output for Last 24 Hours 06/19/19 06/20/19 06/21/19 23:59 23:59 23:59 Intake Total 1989.43 / 2239.43 1627.71 / 1627.71 Output Total 1550 / 1750 400 / 400 Balance 439.43 / 489.43 1227.71 / 1227.71 General: Awake, Alert, Oriented x 3 HEENT: PERRL, EOMI, Sclera Non Icteric Neck: Supple, Good ROM, No Lymph Node Enlargement Lungs: Clear to auscultation Cardiovascular: Regular Rhythm, Normal S1, Normal S2, No Murmurs, No Rubs, No Gallops Vascular: No Carotid Bruits, Normal Femoral Pulses, Normal Radial Pulses, Normal Dorsalis Pedal Pulse, Normal Posterior Tibial Pulses Abdomen: Bowel Sounds Present, Soft, Non Tender, No HSM, No Organomegaly Extremities: No Cyanosis, No Clubbing, No edema Musculoskeletal: No Erythema Skin: No Rashes Lymphatic: No Lymph Node Enlargement Neurological: No Focal Motor or Sensory Deficit Psych/Mental Status: Appropriate 06/20/19 07:40: Troponin I 0.377 H 06/20/19 11:10: Troponin I 0.383 H 06/20/19 14:30: Troponin I 0.374 H 06/20/19 14:30: APTT Cancelled 06/20/19 15:00: APTT 47.6 H 06/20/19 21:50: APTT 71.9 H 06/21/19 04:15: WBC 7.2, RBC 3.12 L, Hgb 10.0 L, Hct 31.5 L, MCV 101.0 H, MCH 32.1 H, MCHC 31.7 L, Plt Count 175, MPV 9.4, Immature Gran % (Auto) 0.600, Neut % (Auto) 85.8 H, Lymph % (Auto) 4.8 L, [place] % (Auto) 5.9, Eos % (Auto) 2.9, Baso % (Auto) 0.0, Absolute Neuts (auto) 6.2, Nucleated RBC % 0 06/21/19 04:15: Sodium 138, Potassium 4.3, Chloride 106, Carbon Dioxide 29.0, Anion Gap 3 L, BUN 11, Creatinine 0.79, Est GFR (MDRD) Af Amer 93, Est GFR (MDRD) Non-Af 77, BUN/Creatinine Ratio 14.0, Glucose 161 H, Calcium 7.6 L 06/21/19 04:15: APTT 92.1 H* 06/21/19 06:19: pH 7.41, Bicarbonate Actual 31.5 H, POC Total CO2 33, Base Excess 7 H, O2 Saturation 100 H, ABG pCO2 50.2 H, ABG pO2 283 H, José Miguel Test POS Rhythm: EKG: Normal sinus rhythm with anterior T wave inversions ECHO: Pending Stress Test: Cardiac Cath: PCI: CT Surgery: Holter monitor: EPS: PPM: CXR: Chest CT Scan: Medical Necessity - Tobacco Use Smoking Status: Current every day smoker Tobacco Use: Cigarettes Assessment/Plan 1. Respiratory failure with abnormal cardiac enzymes * Patient presented with respiratory failure and was noted to have mildly abnormal cardiac enzymes and EKG changes suggestive of anterior ischemia. Takotsubo cardiomyopathy cannot be completely excluded. * Would recommend echocardiogram to assess left ventricular function * DC heparin * Start Lovenox 1 mg/kg twice daily * Patient will ultimately need a left heart catheterization to assess her coronary anatomy. * Depending on the findings further recommendations will be made. For now will patient will continue with supportive therapy.
[2019-06-21] MEDS: Vancomycin IV 1,000 MG/200 ML BAG 200 MG IV (10:42)
[2019-06-21] MEDS: fentaNYL drip 100 ML 15 MCG IV (10:47)
--- NOTE | 2019-06-21 11:47 | RAD_ITS ---
STUDY: X-RAY - ABDOMEN/PELVIS REASON FOR EXAM: Female, 73 years old. OG PLACEMENT TECHNIQUE: Single AP view of the abdomen / pelvis. COMPARISON: None. FINDINGS: The tip of the orogastric tube is in the fundal portion of the stomach. RAD/Abdomen Single View (Portable) IMPRESSION: The tip of the orogastric tube is in the fundal portion of the stomach. Electronically Signed: Chang Shepard, at 13:12 EST , Service support ,
[2019-06-21 11:56] LABS: Partial Thromboplast Time 64.9 Seconds (24.1-36.2)
[2019-06-21] MEDS: Famotidine 20mg IV Push Syringe Q24 300 MG IV (11:57)
[2019-06-21 13:17] LABS: CPK Total, Creatine Kinase 40 U/L (26-192); Triglycerides 113 mg/dL
[2019-06-21] MEDS: Enoxaparin 80 MG/0.8 ML Syringe 70 MG SC (14:12)
[2019-06-21] MEDS: Aspirin 81 MG TAB.CHEW PO (15:39)
[2019-06-21] MEDS: Tamoxifen 10 MG Tablet 20 MG PO (15:40)
[2019-06-21] MEDS: Levothyroxine 137 MCG Tablet PO (15:42)
[2019-06-21] MEDS: fentaNYL drip 100 ML 12.5 MCG IV ×2 (15:51→23:33)
--- NOTE | 2019-06-21 16:14 | NURSING ---
ed re chronic illness deferred till acute illness resolving
--- NOTE | 2019-06-21 16:14 | CHAPLAIN ---
Type of Pastoral Visit _x__ Initial Visit ___ Follow-up Visit ___ On-call Visit ___ General Patient Visit ___ Spiritual Assessment ___ Family Conference ___ Bereavement ___ Rapid Response ___ Code Blue ___ Other (describe below) Pastoral Care Referral From _x__ Patient ___ Family ___ Nurse ___ Physician ___ Blade Changer ___ Mdm Sr ___ Other (describe below) Sacrament/Intervention ___ Active listening ___ Anointing ___ Shinto ___ Bereavement ___ Communion ___ Earlene exploration ___ ___ Life review _x__ Prayer ___ Reconciliation ___ Sacrament of Sick _x__ Supportive presence ___ Wedding ___ Other (describe below) Pastoral Comments patient could respond and indicated that prayer would be welcomed; family members in room and support offered
[2019-06-22] VITALS (49 sets, daily range): BP systolic 77–128; BP diastolic 48–88; PULSE 48–136; RESP 12–26; TEMP 37.6–38.2; O2SAT 97–100
[2019-06-22] MEDS: 0.9% Normal Saline 1,000 ML 125 ML IV ×4 (03:25→20:22)
[2019-06-22] MEDS: Ipratropium/Albuterol Sulfate 3 ML AMPUL.NEB INHALATION ×5 (03:54→23:15)
[2019-06-22 04:01] LABS: Absolute Lymphocyte Count 0.57 X10^3/uL (0.83-4.51); Absolute Neutrophil Count 6.8 X10^3/uL (2.0-7.7); Basophil# 0.01 X10^3/uL; Basophil% 0.1 % (0-1); Hematocrit 34.4 % (37-47); Hemoglobin 11.1 g/dL (12.0-15.0); Lymphocyte # 0.57 X10^3/ul (4.0); Lymphocyte % 7.1 % (19-41); Mean Corp Hgb Conc 32.3 g/dL (32-36); Mean Corpuscular Hgb 32.2 pg (27.0-32.0); Mean Corpuscular Volume 99.7 fL (81-99); Mean Platelet Vol. 9.4 fl (6.2-12.0); Monocyte% 7.4 % (0-10); NRBC Flagged by Analyzer 0 % (0-5); Neutrophil # 6.84 X10^3/uL (2.7-7.7); Neutrophil % 84.7 % (47-70); POSITIVE DIFFERENTIAL YES; Platelet Count 189 K/mm3 (150-450); RBC Distribution Width CV 14.9 % (11.6-14.6); RBC Distribution Width SD 54.4 fl (35.1-43.9); Red Blood Count 3.45 M/mm3 (4.2-5.4); White Blood Count 8.1 K/mm3 (4.4-11.0)
[2019-06-22 04:02] LABS: Differential Indicated SCAN CRITERIA MET
[2019-06-22 04:12] LABS: Anion Gap 5 (5-15); BUN 16 mg/dL (7-18); BUN/Creat Ratio 18.3 RATIO (10-20); Calcium,Total 7.5 mg/dL (8.5-10.1); Chloride 113 mmol/L (98-107); Creatinine, Serum 0.87 mg/dL (0.55-1.02); EST Glomerular Filtration Rate 68 mL/min (>60); Est Glom Filt Rate - Afr Amer 82 mL/min (>60); Estimated Creatinine Clearance 55.52 ml/min; Glucose 147 mg/dL (74-106); Potassium 4.3 mmol/L (3.5-5.1); Sodium Level 143 mmol/L (136-145)
[2019-06-22 04:55] LABS: Differential Comment SCANNED
[2019-06-22] MEDS: 0.9% Saline Lock 10 ML Syringe IV (05:16)
[2019-06-22] MEDS: Enoxaparin 80 MG/0.8 ML Syringe 70 MG SC ×2 (05:16→17:45)
[2019-06-22] MEDS: Levothyroxine 137 MCG Tablet PO (05:43)
[2019-06-22 06:16] LABS: Allen Test POS; Base Excess 0 mmol/L (-2 to +2); Bicarbonate 25.4 mmol/L (22-26); Blood Gas Specimen Type ART; FI02 30; Mode CPAP PS; O2 Delivery Device Vent; PEEP 5; PO2 107 mmHG (75-100); PS 5; SITE L Radial; SO2 98 % (95-99); Total Carbon Dioxide 27 mmol/L; pCO2 43.2 mmHg (35-45); pH 7.38 (7.35-7.45)
--- NOTE | 2019-06-22 07:14 | PCM.PN.HOSP ---
Reason for Visit: Follow-up on acute respiratory failure Subjective: Seen and examined. Patient is on Levophed, Precedex and fentanyl. She is lightly sedated. Able to communicate using her iPad. Denies any new complaints. No acute events overnight. Objective: Physical exam: General: Alert, Cooperative, - - intubated, on mechanical ventilation, Fi02 30%, PEEP 5 HEENT: Atraumatic, PERRLA, EOMI, Normocephalic Oral: Moist Mucosa Neck: Supple Lungs: Diminished, Wheezes - ++ Cardiovascular: Regular rate, Regular Rhythm, Normal S1, Normal S2 Abdomen: Bowel Sounds Present, Soft, Non Tender, Non-Distended, No Hepato-splenomegaly Extremities: No edema, Capillary Refill Less than 3 Seconds Skin: No rashes, - - IV on right foot Musculoskeletal: No Tenderness to Palpation of Joints or Extremities Lymphatic: No Cervical, Supraclavicular, or Inguinal Adenopathy Neurological: Cranial nerves II-XII grossly intact, Neuro grossly intact Psych/Mental Status: Normal Affect, Appropriate Vitals/I&O's: Vital Signs Temp Pulse Resp BP Pulse Ox 100.4 F H 72 26 H 121/66 H 98 06/22/19 07:00 06/22/19 07:00 06/22/19 07:00 06/22/19 07:00 06/22/19 07:00 Oxygen Delivery Method Mechanical Ventilator Weight: 76.9 kg Body Mass Index (BMI) 26.9 Intake and Output for Last 24 Hours 06/20/19 06/21/19 06/22/19 23:59 23:59 23:59 Intake Total 1989.43 / 2239.43 5008.82 / 5022.10 1301.35 / 1301.35 Output Total 1550 / 1750 810 / 810 150 / 150 Balance 439.43 / 489.43 4198.82 / 4212.10 1151.35 / 1151.35 Microbiology Past 72 Hours 06/21/19 01:45 Sputum, Expectorated/Coughed Gram Stain - Final 06/20/19 08:20 Mucosa - Nasopharyngeal Respiratory Panel (PCR) - Final RSV A 06/20/19 09:00 Urine Catheter - Catheter Legionella Antigen - Final 06/20/19 09:00 Urine Catheter - Catheter Streptococcus pneumoniae Antigen (M - Final Laboratory Results 06/21/19 04:15: Total Creatine Kinase 40, Triglycerides 113 06/21/19 11:40: APTT 64.9 H 06/22/19 03:50: WBC 8.1, RBC 3.45 L, Hgb 11.1 L, Hct 34.4 L, MCV 99.7 H, MCH 32.2 H, MCHC 32.3, RDW Std Deviation 54.4 H, RDW Coeff of Ermelinda 14.9 H, Plt Count 189, MPV 9.4, Immature Gran % (Auto) 0.700, Neut % (Auto) 84.7 H, Lymph % (Auto) 7.1 L, Rabun % (Auto) 7.4, Eos % (Auto) 0.0, Baso % (Auto) 0.1, Absolute Neuts (auto) 6.8, Absolute Lymphs (auto) 0.57 L, Nucleated RBC % 0, Differential Comment SCANNED 06/22/19 03:50: Sodium 143, Potassium 4.3, Chloride 113 H, Carbon Dioxide 25.0, Anion Gap 5, BUN 16, Creatinine 0.87, Estim Creat Clear Calc 55.52, Est GFR (MDRD) Af Amer 82, Est GFR (MDRD) Non-Af 68, BUN/Creatinine Ratio 18.3, Glucose 147 H, Calcium 7.5 L 06/22/19 06:10: Specimen Type ART, Sample Site L Radial, pH 7.38, Bicarbonate Actual 25.4, POC Total CO2 27, Base Excess 0, O2 Saturation 98, O2 % 30, ABG pCO2 43.2, ABG pO2 107 H, José Miguel Test POS, O2 Delivery Device Vent, Vent Mode CPAP PS, POC PEEP 5, POC Pressure Suppt 5, Blood Gas Notified Whom HOSP Current Medications Acetaminophen (Tylenol) 650 mg PO Q6H PRN PRN PRN Reason: Pain Score 1-3/Temp > 100.7 F Last Admin: 06/20/19 19:50 Dose: 650 mg Documented by: Al Hydroxide/Mg Hydroxide (Mylanta Ii) 30 ml PO Q6H PRN PRN PRN Reason: Gastric Burning Albuterol Sulfate (Ventolin Aerosols) 2.5 mg INHALATION Q2H PRN PRN PRN Reason: dyspnea, wheezing Last Admin: 06/20/19 09:18 Dose: 2.5 mg Documented by: Albuterol/Ipratropium (Duoneb) 3 ml INHALATION Q4H.RT [facility] Last Admin: 06/22/19 06:47 Dose: 3 ml Documented by: Aspirin (Aspirin, Baby) 81 mg PO DAILY@0800 [facility] Last Admin: 06/21/19 15:39 Dose: 81 mg Documented by: Chlorhexidine Gluconate () 15 ml PO BID [facility] Last Admin: 06/21/19 21:16 Dose: 15 ml Documented by: Dextrose (D50w Syringe) 0 gm IV X1 PRN; Protocol PRN Reason: Hypoglycemia Enoxaparin Sodium (Lovenox) 70 mg SC Q12@0600,1800 [facility] Last Admin: 06/22/19 05:16 Dose: 70 mg Documented by: Glucagon () 1 mg IM .X1 PRN PRN Reason: Hypoglycemia Guaifenesin (Robitussin) 10 ml PO Q4H PRN PRN PRN Reason: COUGH Hydralazine HCl (Apresoline Iv) 10 mg IV Q4H PRN PRN PRN Reason: SBP > 160 Piperacillin Sod/Tazobactam (Sod 3.375 gm/ Sodium Chloride) 50 mls @ 12.5 mls/hr IV Q8 [facility] Last Admin: 06/22/19 05:15 Dose: 12.5 mls/hr Documented by: Sodium Chloride () 1,000 mls @ 125 mls/hr IV .Q8H [facility] Last Infusion: 06/22/19 06:00 Dose: 125 mls/hr Documented by: Sodium Chloride () 250 mls @ 15 mls/hr IV .[id number] PRN PRN Reason: Saline Flush Last Infusion: 06/22/19 01:15 Dose: 15 mls/hr Documented by: Sodium Chloride () 250 mls @ 15 mls/hr IV .[id number] PRN PRN Reason: Additional IVPB Infusion Fentanyl () 100 mls @ 2.5 mls/hr IV UD [facility]; Protocol Last Titration: 06/22/19 07:00 Dose: 0 mcg/hr, 0 mls/hr Documented by: Famotidine 20 mg/ Sodium (Chloride) 10 mls @ 300 mls/hr IV Q24 [facility] Last Infusion: 06/21/19 11:59 Dose: Infused Documented by: Dexmedetomidine HCl 400 mcg/ (Sodium Chloride) 100 mls @ 9.113 mls/hr CONT INF .[id number] [facility]; Protocol Last Titration: 06/22/19 07:00 Dose: 0.3 mcg/kg/hr, 5.5 mls/hr Documented by: Norepinephrine Bitartrate 8 mg (/ Sodium Chloride) 250 mls @ 9.375 mls/hr CONT INF .[id number] [facility]; Protocol Last Titration: 06/22/19 07:00 Dose: 5 mcg/min, 9.4 mls/hr Documented by: Levothyroxine Sodium (Synthroid) 137 mcg PO DAILY@0600 [facility] Last Admin: 06/22/19 05:43 Dose: 137 mcg Documented by: Magnesium Hydroxide (Milk Of Magnesia) 30 ml PO DAILY PRN PRN PRN Reason: Constipation Methylprednisolone (Solu-Medrol) 40 mg IV Q8 [facility] Last Admin: 06/22/19 05:16 Dose: 40 mg Documented by: Nitroglycerin (Nitrostat) 0.4 mg SUBLINGUAL Q5M PRN PRN Reason: CARDIAC/CHEST PAIN Ondansetron HCl (Zofran) 4 mg IV Q8H PRN PRN PRN Reason: NAUSEA/VOMITING Prochlorperazine Edisylate (Compazine Iv) 5 mg IV Q4H PRN PRN PRN Reason: Breakthrough Nausea/Vomiting Sodium Chloride () 10 - 40 ml IV UD PRN PRN Reason: SALINE FLUSH Last Admin: 06/22/19 05:16 Dose: 20 ml Documented by: Tamoxifen Citrate (Nolvadex) 20 mg PO DAILY [facility] Last Admin: 06/21/19 15:40 Dose: 20 mg Documented by: Throat Lozenges (Cepacol Sore Throat Lozenge) 1 lozenge MUCOUS MEM Q2H PRN PRN PRN Reason: Sore Throat/Cough STROKE Vital Signs/Narrative: Vital Signs Temp Pulse Resp BP Pulse Ox 06/22/19 07:00 100.4 F H 72 26 H 121/66 H 98 06/22/19 06:00 100.2 F H 58 L 22 H 97/79 99 06/22/19 05:00 100.3 F H 57 L 22 H 117/64 98 06/22/19 04:10 61 16 97 06/22/19 04:00 100.3 F H 53 L 14 100/60 99 06/22/19 03:54 65 15 Medical Necessity - Tobacco Use Smoking Status: Current every day smoker Tobacco Use: Cigarettes Assessment/Plan All Active Problems (Last Reviewed 06/20/19 @ 09:45 by Mike Pope MD) Encounter for insertion of venous access port (Resolved) Exertional dyspnea (Acute) Sore throat (Resolved) Perineal pain (Resolved) Diarrhea (Resolved) Nausea vomiting and diarrhea (Resolved) Large bowel obstruction (Resolved) Ileus (Resolved) Hypokalemia due to loss of potassium (Resolved) 73-year-old female with past medical history of right breast CA, chronic respiratory failure, on 2 L of oxygen, COPD/Langerhans cell histiocytosis who was transferred from [facility] with progressive shortness of breath. 1. 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 Acute NSTEMI, with new T-wave inversions, EKG appears improved Switch from heparin drip to Lovenox therapeutic dosing, aspirin, Cardiology consulted, continue to monitor 3. Suspected Community-acquired pneumonia, ruled out with negative chest x-ray here MRSA screen is negative. On vancomycin and Zosyn pending final blood cultures 4. Right breast CA stage IIIb, follows in the outpatient with oncology 5. Hypothyroidism, continue on Synthroid 6. Tobacco dependence, advised to quit 7. DVT prophylaxis - On Lovenox therapeutic 8. Code status: Full code Code Visit Inpatient E&M: 51817 Subs Hosp L2
--- NOTE | 2019-06-22 07:27 | PCM.PN.INT ---
Subjective: Patient did okay overnight. Patient did have a minimal Levophed requirement, but this did not have to be significantly increased overnight. Patient did have a spontaneous breathing trial this morning and tolerated an hour. ABG looked okay, but on assessment, patient had global wheezing with decreased tidal volumes and tachypnea. Patient reports she had been startled by a phone, but it was determined that extubation was likely premature. No bleeding complications have been reported. General: Alert, Cooperative, No apparent distress, - - RASS +1 on my initial evaluation. Patient was able to type responses on an iPad. HEENT: Atraumatic, PERRLA, EOMI, Normocephalic, - - No scleral icterus or injection noted Oral: Moist Mucosa, No Gingival or Mucosal Lesions/ Ulcerations Neck: Supple, No JVD, No Nodes, Trachea Midline Lungs: No rhonchi, No rales, Diminished, Wheezes - Global, - - Symmetric expansion. No dullness to percussion. Cardiovascular: Normal S1, Normal S2, No murmurs, Irregular Rate, No rub noted, No Gallop Abdomen: Bowel Sounds Present, Soft, Non Tender, Non-Distended Extremities: No clubbing, No cyanosis, Edema - Trace Skin: No rashes, No breakdown Musculoskeletal: No Tenderness to Palpation of Joints or Extremities Lymphatic: No Cervical, Supraclavicular, or Inguinal Adenopathy Neurological: Cranial nerves II-XII grossly intact, Neuro grossly intact, Motor Exam 5/5 strength throughout Psych/Mental Status: Anxious, Restless Vital Signs Temp Pulse Resp BP Pulse Ox 38.0 C H 72 26 H 121/66 H 98 06/22/19 07:00 06/22/19 07:00 06/22/19 07:00 06/22/19 07:00 06/22/19 07:00 Oxygen Delivery Method Mechanical Ventilator Weight: 76.9 kg Body Mass Index (BMI) 26.9 Intake and Output for Last 24 Hours 06/20/19 06/21/19 06/22/19 23:59 23:59 23:59 Intake Total 1989.43 / 2239.43 5008.82 / 5022.10 1301.35 / 1301.35 Output Total 1550 / 1750 810 / 810 150 / 150 Balance 439.43 / 489.43 4198.82 / 4212.10 1151.35 / 1151.35 Labs (Last 48 Hours) 06/20/19 06/20/19 06/20/19 07:40 07:40 07:40 WBC 5.1 RBC 3.62 L Hgb 11.7 L Hct 36.0 L MCV 99.4 H MCH 32.3 H MCHC 32.5 RDW Std Deviation 52.8 H RDW Coeff of Ermelinda 14.4 Plt Count 195 MPV 9.2 Immature Gran % (Auto) Neut % (Auto) Lymph % (Auto) Mon[place] % (Auto) Eos % (Auto) Baso % (Auto) Absolute Neuts (auto) Absolute Lymphs (auto) Nucleated RBC % Differential Comment PT 13.5 INR 1.1 APTT 42.5 H Specimen Type Sample Site pH Bicarbonate Actual POC Total CO2 Base Excess O2 Saturation O2 % ABG pCO2 ABG pO2 José Miguel Test Respiration Rate O2 Delivery Device Minute Volume Vent Mode Tidal Volume POC PEEP POC Pressure Suppt Blood Gas Notified Whom Blood Gas Notified Time Sodium 138 Potassium 4.5 Chloride 105 Carbon Dioxide 28.0 Anion Gap 5 BUN 9 Creatinine 0.72 Estim Creat Clear Calc Est GFR (MDRD) Af Amer 103 Est GFR (MDRD) Non-Af 85 BUN/Creatinine Ratio 12.6 Glucose 177 H Lactic Acid Calcium 8.1 L Magnesium 2.1 Total Bilirubin 0.30 AST 11 L ALT 20 Alkaline Phosphatase 75 Total Creatine Kinase Troponin I Total Protein 6.6 Albumin 2.9 L Globulin 3.7 Albumin/Globulin Ratio 0.8 L Triglycerides 68 Cholesterol 194 LDL Cholesterol 93 VLDL Cholesterol 14 HDL Cholesterol 87 MRSA (PCR) 06/20/19 06/20/19 06/20/19 07:40 07:40 08:35 WBC RBC Hgb Hct MCV MCH MCHC RDW Std Deviation RDW Coeff of Ermelinda Plt Count MPV Immature Gran % (Auto) Neut % (Auto) Lymph % (Auto) Mon[place] % (Auto) Eos % (Auto) Baso % (Auto) Absolute Neuts (auto) Absolute Lymphs (auto) Nucleated RBC % Differential Comment PT INR APTT Specimen Type ART Sample Site L Radial pH 7.34 L Bicarbonate Actual 28.5 H POC Total CO2 30 Base Excess 3 H O2 Saturation 97 O2 % 45 ABG pCO2 52.6 H ABG pO2 99 José Miguel Test POS Respiration Rate O2 Delivery Device Bi / C PAP Minute Volume Vent Mode Tidal Volume POC PEEP POC Pressure Suppt Blood Gas Notified Whom ICU MD Blood Gas Notified Time 834 Sodium Potassium Chloride Carbon Dioxide Anion Gap BUN Creatinine Estim Creat Clear Calc Est GFR (MDRD) Af Amer Est GFR (MDRD) Non-Af BUN/Creatinine Ratio Glucose Lactic Acid 1.0 Calcium Magnesium Total Bilirubin AST ALT Alkaline Phosphatase Total Creatine Kinase Troponin I 0.377 H Total Protein Albumin Globulin Albumin/Globulin Ratio Triglycerides Cholesterol LDL Cholesterol VLDL Cholesterol HDL Cholesterol MRSA (PCR) 06/20/19 06/20/19 06/20/19 11:10 14:30 14:30 WBC RBC Hgb Hct MCV MCH MCHC RDW Std Deviation RDW Coeff of Erme[place]nda Plt Count MPV Immature Gran % (Auto) Neut % (Auto) Lymph % (Auto) [place] % (Auto) Eos % (Auto) Baso % (Auto) Absolute Neuts (auto) Absolute Lymphs (auto) Nucleated RBC % Differential Comment PT INR APTT Specimen Type Sample Site pH Bicarbonate Actual POC Total CO2 Base Excess O2 Saturation O2 % ABG pCO2 ABG pO2 José Miguel Test Respiration Rate O2 Delivery Device Minute Volume Vent Mode Tidal Volume POC PEEP POC Pressure Suppt Blood Gas Notified Whom Blood Gas Notified Time Sodium Potassium Chloride Carbon Dioxide Anion Gap BUN Creatinine Estim Creat Clear Calc Est GFR (MDRD) Af Amer Est GFR (MDRD) Non-Af BUN/Creatinine Ratio Glucose Lactic Acid Calcium Magnesium Total Bilirubin AST ALT Alkaline Phosphatase Total Creatine Kinase Troponin I 0.383 H 0.374 H Total Protein Albumin Globulin Albumin/Globulin Ratio Triglycerides Cholesterol LDL Cholesterol VLDL Cholesterol HDL Cholesterol MRSA (PCR) Negative 06/20/19 06/20/19 06/20/19 14:30 15:00 21:50 WBC RBC Hgb Hct MCV MCH MCHC RDW Std Deviation RDW Coeff of Ermelinda Plt Count MPV Immature Gran % (Auto) Neut % (Auto) Lymph % (Auto) [place] % (Auto) Eos % (Auto) Baso % (Auto) Absolute Neuts (auto) Absolute Lymphs (auto) Nucleated RBC % Differential Comment PT INR APTT Cancelled 47.6 H 71.9 H Specimen Type Sample Site pH Bicarbonate Actual POC Total CO2 Base Excess O2 Saturation O2 % ABG pCO2 ABG pO2 José Miguel Test Respiration Rate O2 Delivery Device Minute Volume Vent Mode Tidal Volume POC PEEP POC Pressure Suppt Blood Gas Notified Whom Blood Gas Notified Time Sodium Potassium Chloride Carbon Dioxide Anion Gap BUN Creatinine Estim Creat Clear Calc Est GFR (MDRD) Af Amer Est GFR (MDRD) Non-Af BUN/Creatinine Ratio Glucose Lactic Acid Calcium Magnesium Total Bilirubin AST ALT Alkaline Phosphatase Total Creatine Kinase Troponin I Total Protein Albumin Globulin Albumin/Globulin Ratio Triglycerides Cholesterol LDL Cholesterol VLDL Cholesterol HDL Cholesterol MRSA (PCR) 06/21/19 06/21/19 06/21/19 04:15 04:15 04:15 WBC 7.2 RBC 3.12 L Hgb 10.0 L Hct 31.5 L MCV 101.0 H MCH 32.1 H MCHC 31.7 L RDW Std Deviation 54.5 H RDW Coeff of Ermelinda 14.8 H Plt Count 175 MPV 9.4 Immature Gran % (Auto) 0.600 Neut % (Auto) 85.8 H Lymph % (Auto) 4.8 L [place]ona % (Auto) 5.9 Eos % (Auto) 2.9 Baso % (Auto) 0.0 Absolute Neuts (auto) 6.2 Absolute Lymphs (auto) 0.35 L Nucleated RBC % 0 Differential Comment SCANNED PT INR APTT 92.1 H* Specimen Type Sample Site pH Bicarbonate Actual POC Total CO2 Base Excess O2 Saturation O2 % ABG pCO2 ABG pO2 José Miguel Test Respiration Rate O2 Delivery Device Minute Volume Vent Mode Tidal Volume POC PEEP POC Pressure Suppt Blood Gas Notified Whom Blood Gas Notified Time Sodium 138 Potassium 4.3 Chloride 106 Carbon Dioxide 29.0 Anion Gap 3 L BUN 11 Creatinine 0.79 Estim Creat Clear Calc 48.30 Est GFR (MDRD) Af Amer 93 Est GFR (MDRD) Non-Af 77 BUN/Creatinine Ratio 14.0 Glucose 161 H Lactic Acid Calcium 7.6 L Magnesium Total Bilirubin AST ALT Alkaline Phosphatase Total Creatine Kinase Troponin I Total Protein Albumin Globulin Albumin/Globulin Ratio Triglycerides Cholesterol LDL Cholesterol VLDL Cholesterol HDL Cholesterol MRSA (PCR) 06/21/19 06/21/19 06/21/19 04:15 06:19 11:40 WBC RBC Hgb Hct MCV MCH MCHC RDW Std Deviation RDW Coeff of Ermelinda Plt Count MPV Immature Gran % (Auto) Neut % (Auto) Lymph % (Auto) [place] % (Auto) Eos % (Auto) Baso % (Auto) Absolute Neuts (auto) Absolute Lymphs (auto) Nucleated RBC % Differential Comment PT INR APTT 64.9 H Specimen Type ART Sample Site L Radial pH 7.41 Bicarbonate Actual 31.5 H POC Total CO2 33 Base Excess 7 H O2 Saturation 100 H O2 % 60 ABG pCO2 50.2 H ABG pO2 283 H José Miguel Test POS Respiration Rate 17 O2 Delivery Device Vent Minute Volume 7.00 Vent Mode A-C Tidal Volume 450 POC PEEP 5 POC Pressure Suppt Blood Gas Notified Whom ICU MD Blood Gas Notified Time Sodium Potassium Chloride Carbon Dioxide Anion Gap BUN Creatinine Estim Creat Clear Calc Est GFR (MDRD) Af Amer Est GFR (MDRD) Non-Af BUN/Creatinine Ratio Glucose Lactic Acid Calcium Magnesium Total Bilirubin AST ALT Alkaline Phosphatase Total Creatine Kinase 40 Troponin I Total Protein Albumin Globulin Albumin/Globulin Ratio Triglycerides 113 Cholesterol LDL Cholesterol VLDL Cholesterol HDL Cholesterol MRSA (PCR) 06/22/19 06/22/19 06/22/19 03:50 03:50 06:10 WBC 8.1 RBC 3.45 L Hgb 11.1 L Hct 34.4 L MCV 99.7 H MCH 32.2 H MCHC 32.3 RDW Std Deviation 54.4 H RDW Coeff of Ermelinda 14.9 H Plt Count 189 MPV 9.4 Immature Gran % (Auto) 0.700 Neut % (Auto) 84.7 H Lymph % (Auto) 7.1 L Monona % (Auto) 7.4 Eos % (Auto) 0.0 Baso % (Auto) 0.1 Absolute Neuts (auto) 6.8 Absolute Lymphs (auto) 0.57 L Nucleated RBC % 0 Differential Comment SCANNED PT INR APTT Specimen Type ART Sample Site L Radial pH 7.38 Bicarbonate Actual 25.4 POC Total CO2 27 Base Excess 0 O2 Saturation 98 O2 % 30 ABG pCO2 43.2 ABG pO2 107 H José Miguel Test POS Respiration Rate O2 Delivery Device Vent Minute Volume Vent Mode CPAP PS Tidal Volume POC PEEP 5 POC Pressure Suppt 5 Blood Gas Notified Whom HOSP MD Blood Gas Notified Time Sodium 143 Potassium 4.3 Chloride 113 H Carbon Dioxide 25.0 Anion Gap 5 BUN 16 Creatinine 0.87 Estim Creat Clear Calc 55.52 Est GFR (MDRD) Af Amer 82 Est GFR (MDRD) Non-Af 68 BUN/Creatinine Ratio 18.3 Glucose 147 H Lactic Acid Calcium 7.5 L Magnesium Total Bilirubin AST ALT Alkaline Phosphatase Total Creatine Kinase Troponin I Total Protein Albumin Globulin Albumin/Globulin Ratio Triglycerides Cholesterol LDL Cholesterol VLDL Cholesterol HDL Cholesterol MRSA (PCR) Microbiology 06/21/19 01:45 Sputum, Expectorated/Coughed Gram Stain - Final 06/20/19 08:20 Mucosa - Nasopharyngeal Respiratory Panel (PCR) - Final RSV A 06/20/19 09:00 Urine Catheter - Catheter Legionella Antigen - Final 06/20/19 09:00 Urine Catheter - Catheter Streptococcus pneumoniae Antigen (M - Final Clinical Impression(s) from Imaging Studies KUB X-Ray 06/21/19 11:47 IMPRESSION: The tip of the orogastric tube is in the fundal portion of the stomach. Electronically Signed: Chang Mehtalatasha, at 13:12 EST , Service support , Medical Necessity - Tobacco Use Smoking Status: Current every day smoker Tobacco Use: Cigarettes Assessment/Plan All Active Problems (Last Reviewed 06/20/19 @ 09:45 by Mike Pope MD) Encounter for insertion of venous access port (Resolved) Exertional dyspnea (Acute) Sore throat (Resolved) Perineal pain (Resolved) Diarrhea (Resolved) Nausea vomiting and diarrhea (Resolved) Large bowel obstruction (Resolved) Ileus (Resolved) Hypokalemia due to loss of potassium (Resolved) RECOMMENDATIONS: 1. Continue mechanical ventilation. Wean FiO2 to maintain oxygen saturations at or above 90%. 2. Continue scheduled bronchodilators and IV steroids. 3. Likely okay to discontinue antimicrobials if blood/sputum cultures negative at 48 hours. 4. Okay to initiate tube feeds 5. Spontaneous awakening and breathing trials per protocol 6. Await cardiology recommendations IMPRESSIONS: 1. Acute hypoxemic and hypercarbic respiratory failure secondary to COPD exacerbation secondary to RSV Extent of respiratory insult is unclear at this time. 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 Patient does have pending cultures at this time. Would continue with empiric antibiotics ending the results of these cultures. Continue with bronchodilators and steroids. Echocardiogram is suggestive of focal wall motion abnormality, so heart catheterization may be required in the future. Patient CT scan did not show any pulmonary emboli. Cardiology is following. 2. Personal history of stage IIb right breast cancer The patient is currently followed by Dr. Hoyt of oncology and is currently being maintained on adjuvant tamoxifen therapy. 3. 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 Continue Synthroid. Nicotine replacement therapy can be offered to the patient while admitted to the hospital. The patient wishes to remain full CODE STATUS at this time. TIME: 37 minutes of critical care time was spent addressing the patient's acute hypoxemic and hypercarbic respiratory failure, presumptive community-acquired pneumonia, COPD with exacerbation, history of breast cancer, history of Langerhan cell histiocytosis, tobacco dependency, review of all data and collaboration with the care team. (6:30 AM to 7:30 AM) Code Visit 9xxxx: [id number] Critical care first hour
[2019-06-22] MEDS: TITRATION PARAMETER CHANGE 1 EACH IV ×2 (08:00→14:14)
--- NOTE | 2019-06-22 08:35 | PN.CARD_ITS ---
Subjectve: Patient seen and evaluated. Appears to be more awake today. Objective: Vital Signs Temp Pulse Resp BP Pulse Ox 100.4 F H 72 26 H 121/66 H 98 06/22/19 07:00 06/22/19 07:00 06/22/19 07:00 06/22/19 07:00 06/22/19 07:00 Oxygen Delivery Method Mechanical Ventilator Weight: 169 lb 8.568 oz Body Mass Index (BMI) 26.9 Intake and Output for Last 24 Hours 06/20/19 06/21/19 06/22/19 23:59 23:59 23:59 Intake Total 1989.43 / 2239.43 5008.82 / 5022.10 1301.35 / 1301.35 Output Total 1550 / 1750 810 / 810 150 / 150 Balance 439.43 / 489.43 4198.82 / 4212.10 1151.35 / 1151.35 General: Awake, Alert, Oriented x 3 HEENT: PERRL, EOMI, Sclera Non Icteric Neck: Supple, Good ROM, No Lymph Node Enlargement Lungs: Clear to auscultation Cardiovascular: Regular Rhythm, Normal S1, Normal S2, No Murmurs, No Rubs, No Gallops 06/21/19 04:15: Triglycerides 113 06/21/19 11:40: APTT 64.9 H 06/22/19 03:50: WBC 8.1, RBC 3.45 L, Hgb 11.1 L, Hct 34.4 L, MCV 99.7 H, MCH 32.2 H, MCHC 32.3, Plt Count 189, MPV 9.4, Immature Gran % (Auto) 0.700, Neut % (Auto) 84.7 H, Lymph % (Auto) 7.1 L, [place] % (Auto) 7.4, Eos % (Auto) 0.0, Baso % (Auto) 0.1, Absolute Neuts (auto) 6.8, Nucleated RBC % 0 06/22/19 03:50: Sodium 143, Potassium 4.3, Chloride 113 H, Carbon Dioxide 25.0, Anion Gap 5, BUN 16, Creatinine 0.87, Est GFR (MDRD) Af Amer 82, Est GFR (MDRD) Non-Af 68, BUN/Creatinine Ratio 18.3, Glucose 147 H, Calcium 7.5 L 06/22/19 06:10: pH 7.38, Bicarbonate Actual 25.4, POC Total CO2 27, Base Excess 0, O2 Saturation 98, ABG pCO2 43.2, ABG pO2 107 H, José Miguel Test POS Rhythm: EKG: ECHO: Stress Test: Cardiac Cath: PCI: CT Surgery: Holter monitor: EPS: PPM: CXR: Chest CT Scan: Medical Necessity - Tobacco Use Smoking Status: Current every day smoker Tobacco Use: Cigarettes Assessment/Plan 1. Respiratory failure with abnormal cardiac enzymes * Patient presented with respiratory failure and was noted to have mildly abnormal cardiac enzymes and EKG changes suggestive of anterior ischemia. Takotsubo cardiomyopathy cannot be completely excluded. * Echocardiogram done demonstrates evidence of left ventricular systolic dysfunction with anterior apical hypokinesis and basal inferior and basal lateral and basal anterior hypokinesis. The above is most likely consistent with Takotsubo cardiomyopathy as well as the EKG changes. * Patient will ultimately need a left heart catheterization to assess her coronary anatomy. * Depending on the findings further recommendations will be made. For now will patient will continue with supportive therapy. Would not change medical management at this particular time. * * Thank you for allowing me to participate in the care of your patient. Please don't hesitate to call if any issues arise
--- NOTE | 2019-06-22 10:58 | CASEMGMT ---
RN ALONDRA Assessment Presentation: RSV, COPD. Resp failure, vent Intro role of CM and purpose of RN CM assessment to patient and her family in room. PT is on ventilator, but wishes to write answers on paper, and was able to do so. Demographics, PCP and Pharmacy verified. When RN ALONDRA asked pt if she wears home oxygen, son stated You don't need to know that. CM replied that it was important for dc planning. Pt wrote yes and [employer] for DME company. Son again said its oxygen, and she usually only wears it at night-that's all you need to know. RN ALONDRA explained to son importance of ascertaining DME company in case changes in script would occur on discharge, especially if script is only written for night time and pt would need continuous. Then portability would need to be arranged. Son then dropped conversation and RNCM resumed speaking with pt. PCP: Specialists: Preferred Pharmacy: Insurance: Prescription Benefit: LNOK: Living Arrangements: Transportation: DME: [facility]/SNF: SW Referral: Patient DC goals: DC PLAN:
--- NOTE | 2019-06-22 11:09 | CASEMGMT ---
Addendum entered by Delonte Bonilla 06/22/19 16:27: Pt also has nebulizer at home. Original Note: RN CM Assessment Presentation: RSV, COPD. Resp failure, vent Intro role of CM and purpose of RN CM assessment to patient and her family in room. PT is on ventilator, but wishes to write answers on paper, and was able to do so. Demographics, PCP and Pharmacy verified. When RN CM asked pt if she wears home oxygen, son stated You don't need to know that. CM replied that it was important for dc planning. Pt wrote yes and [employer] for DME company. Son again said its oxygen, and she usually only wears it at night-that's all you need to know. RN ALONDRA politely explained to son importance of ascertaining DME company in case changes in script would occur on discharge, especially if script is only written for night time and pt would need continuous. Then portability would need to be arranged. Son then dropped conversation and RNCM resumed speaking with pt. PCP: Dr. Mike Asher [facility] Benef[facility]: yes LNOK: Pietro Larose Living Arrangements: Lives independently in one story home. No care needs prior to admission. Transportation: Drives DME: denied ambulatory DME, Home Oxygen through [employer]. Call to [employer]- script is for Nocturnal O2 @ 2L [place]. No portability. HHC/SNF: none SW Referral: no Patient DC goals: Home on discharge DC PLAN: anticipate home. PT/OT evaluations pending. CM will continue to follow and assist with dc needs. May need new oxygen testing prior to dc. Jerardo COSME RN ACM
[2019-06-22] MEDS: Aspirin 81 MG TAB.CHEW PO (11:24)
[2019-06-22] MEDS: Chlorhexidine 15 ML PO ×2 (11:24→21:39)
[2019-06-22] MEDS: Tamoxifen 10 MG Tablet 20 MG PO (11:24)
[2019-06-22] MEDS: Famotidine 20mg IV Push Syringe Q24 300 MG IV ×2 (11:25→21:38)
[2019-06-22] MEDS: fentaNYL drip 100 ML 10 MCG IV (14:00)
[2019-06-22] MEDS: Vital AF 1.2 Cal Liquid 1,000 ML 20 ML GT (14:30)
--- NOTE | 2019-06-22 16:51 | CHAPLAIN ---
Type of Pastoral Visit ___ Initial Visit _x__ Follow-up Visit ___ On-call Visit ___ General Patient Visit ___ Spiritual Assessment ___ Family Conference ___ Bereavement ___ Rapid Response ___ Code Blue ___ Other (describe below) Pastoral Care Referral From _x__ Patient ___ Family ___ Nurse ___ Physician ___ Business Systems Lead ___ Coordinating Producer ___ Other (describe below) Sacrament/Intervention ___ Active listening ___ Anointing ___ Protestant ___ Bereavement ___ Communion ___ Earlene exploration ___ ___ Life review _x__ Prayer ___ Reconciliation ___ Sacrament of Sick _x__ Supportive presence ___ Wedding ___ Other (describe below) Pastoral Comments
[2019-06-22 17:46] LABS: Bedside Glucose 109 mg/dL (70-110)
[2019-06-23] VITALS (43 sets, daily range): BP systolic 84–120; BP diastolic 50–66; PULSE 60–124; RESP 14–27; TEMP 37–38.3; O2SAT 94–99
[2019-06-23] MEDS: fentaNYL drip 100 ML 10 MCG IV (00:56)
[2019-06-23] MEDS: Ipratropium/Albuterol Sulfate 3 ML AMPUL.NEB INHALATION ×6 (03:15→23:09)
[2019-06-23] MEDS: 0.9% Normal Saline 1,000 ML 125 ML IV (04:47)
[2019-06-23] MEDS: Enoxaparin 80 MG/0.8 ML Syringe 70 MG SC ×2 (05:04→17:10)
[2019-06-23] MEDS: Levothyroxine 137 MCG Tablet PO (05:04)
[2019-06-23 06:15] LABS: Allen Test POS; Base Excess 1 mmol/L (-2 to +2); Bicarbonate 25.6 mmol/L (22-26); Blood Gas Specimen Type ART; FI02 30; Mode CPAP PS; O2 Delivery Device Vent; PEEP 5; PO2 82 mmHG (75-100); PS 5; SITE L Radial; SO2 96 % (95-99); Total Carbon Dioxide 27 mmol/L; pCO2 42.2 mmHg (35-45); pH 7.39 (7.35-7.45)
--- NOTE | 2019-06-23 06:49 | PN_ITS ---
Subjective: Patient did well overnight. Patient was tolerating tube feeds at goal prior to spontaneous breathing trial. Patient was taken off of Levophed this morning and blood pressures have been marginal. Patient did have some nonsustained V. tach noted. Patient reports significant improvement in respiratory effort today compared to yesterday. General: Alert, Cooperative, No apparent distress, - - Normal respiratory effort on spontaneous breathing trial. HEENT: Atraumatic, PERRLA, EOMI, Normocephalic, - - No scleral icterus or injection noted Oral: Moist Mucosa, No Gingival or Mucosal Lesions/ Ulcerations Neck: Supple, No JVD, No Nodes, Trachea Midline Lungs: No rhonchi, No rales, Diminished, Wheezes - Improved air exchange compared to yesterday, - - Symmetric expansion. No dullness to percussion. Cardiovascular: Normal S1, Normal S2, No murmurs, Irregular Rate, No rub noted, No Gallop Abdomen: Bowel Sounds Present, Soft, Non Tender, Non-Distended, Obese Extremities: No clubbing, No cyanosis, Edema Skin: No rashes, No breakdown Musculoskeletal: No Tenderness to Palpation of Joints or Extremities Lymphatic: No Cervical, Supraclavicular, or Inguinal Adenopathy Neurological: Cranial nerves II-XII grossly intact, Neuro grossly intact, Motor Exam 5/5 strength throughout Psych/Mental Status: Normal Affect, Appropriate Vital Signs Temp Pulse Resp BP Pulse Ox 37.9 C H 79 12 94/51 L 98 06/23/19 00:00 06/23/19 06:39 06/23/19 06:39 06/23/19 00:00 06/23/19 06:36 Oxygen Delivery Method Mechanical Ventilator Weight: 82.4 kg Body Mass Index (BMI) 26.9 Intake and Output for Last 24 Hours 06/21/19 06/22/19 06/23/19 23:59 23:59 23:59 Intake Total 5008.82 / 5022.10 4250.79 / 4366.29 1276.42 / 1276.42 Output Total 810 / 810 690 / 1030 740 / 740 Balance 4198.82 / 4212.10 3560.79 / 3336.29 536.42 / 536.42 Labs (Last 48 Hours) 01/20/20 01/20/20 01/21/20 04:15 11:40 03:50 WBC 8.1 RBC 3.45 L Hgb 11.1 L Hct 34.4 L MCV 99.7 H MCH 32.2 H MCHC 32.3 RDW Std Deviation 54.4 H RDW Coeff of Ermelinda 14.9 H Plt Count 189 MPV 9.4 Immature Gran % (Auto) 0.700 Neut % (Auto) 84.7 H Lymph % (Auto) 7.1 L [place] % (Auto) 7.4 Eos % (Auto) 0.0 Baso % (Auto) 0.1 Absolute Neuts (auto) 6.8 Absolute Lymphs (auto) 0.57 L Nucleated RBC % 0 Differential Comment SCANNED APTT 64.9 H Specimen Type Sample Site pH Bicarbonate Actual POC Total CO2 Base Excess O2 Saturation O2 % ABG pCO2 ABG pO2 José Miguel Test O2 Delivery Device Vent Mode POC PEEP POC Pressure Suppt Blood Gas Notified Whom Sodium Potassium Chloride Carbon Dioxide Anion Gap BUN Creatinine Estim Creat Clear Calc Est GFR (MDRD) Af Amer Est GFR (MDRD) Non-Af BUN/Creatinine Ratio Glucose Calcium Total Creatine Kinase 40 Triglycerides 113 POC Glucose 06/22/19 06/22/19 06/22/19 03:50 06:10 17:37 WBC RBC Hgb Hct MCV MCH MCHC RDW Std Deviation RDW Coeff of Ermelinda Plt Count MPV Immature Gran % (Auto) Neut % (Auto) Lymph % (Auto) [place] % (Auto) Eos % (Auto) Baso % (Auto) Absolute Neuts (auto) Absolute Lymphs (auto) Nucleated RBC % Differential Comment APTT Specimen Type ART Sample Site L Radial pH 7.38 Bicarbonate Actual 25.4 POC Total CO2 27 Base Excess 0 O2 Saturation 98 O2 % 30 ABG pCO2 43.2 ABG pO2 107 H José Miguel Test POS O2 Delivery Device Vent Vent Mode CPAP PS POC PEEP 5 POC Pressure Suppt 5 Blood Gas Notified Whom HOSP MD Sodium 143 Potassium 4.3 Chloride 113 H Carbon Dioxide 25.0 Anion Gap 5 BUN 16 Creatinine 0.87 Estim Creat Clear Calc 55.52 Est GFR (MDRD) Af Amer 82 Est GFR (MDRD) Non-Af 68 BUN/Creatinine Ratio 18.3 Glucose 147 H Calcium 7.5 L Total Creatine Kinase Triglycerides POC Glucose 109 06/23/19 06:11 WBC RBC Hgb Hct MCV MCH MCHC RDW Std Deviation RDW Coeff of Ermelinda Plt Count MPV Immature Gran % (Auto) Neut % (Auto) Lymph % (Auto) [place] % (Auto) Eos % (Auto) Baso % (Auto) Absolute Neuts (auto) Absolute Lymphs (auto) Nucleated RBC % Differential Comment APTT Specimen Type ART Sample Site L Radial pH 7.39 Bicarbonate Actual 25.6 POC Total CO2 27 Base Excess 1 O2 Saturation 96 O2 % 30 ABG pCO2 42.2 ABG pO2 82 José Miguel Test POS O2 Delivery Device Vent Vent Mode CPAP PS POC PEEP 5 POC Pressure Suppt 5 Blood Gas Notified Whom ICU MD Sodium Potassium Chloride Carbon Dioxide Anion Gap BUN Creatinine Estim Creat Clear Calc Est GFR (MDRD) Af Amer Est GFR (MDRD) Non-Af BUN/Creatinine Ratio Glucose Calcium Total Creatine Kinase Triglycerides POC Glucose Microbiology 06/20/19 09:20 Blood Culture (Wb) - Anticubital Right Blood Culture - Preliminary No growth in 48 hours. 06/20/19 08:25 Blood Culture (Wb) - Left Wrist Blood Culture - Preliminary No growth in 48 hours. 06/21/19 01:45 Sputum, Expectorated/Coughed Gram Stain - Final Medical Necessity - Tobacco Use Smoking Status: Current every day smoker Tobacco Use: Cigarettes Assessment/Plan All Active Problems (Last Reviewed 06/20/19 @ 09:45 by Mike Pope MD) Encounter for insertion of venous access port (Resolved) Exertional dyspnea (Acute) Sore throat (Resolved) Perineal pain (Resolved) Diarrhea (Resolved) Nausea vomiting and diarrhea (Resolved) Large bowel obstruction (Resolved) Ileus (Resolved) Hypokalemia due to loss of potassium (Resolved) RECOMMENDATIONS: 1. Extubate patient to Airvo. Wean FiO2 to maintain oxygen saturations at o r above 90%. 2. Continue scheduled bronchodilators and IV steroids. 3. Discontinue antimicrobials, fentanyl and Precedex 4. Bedside swallow evaluation and p.o. diet as indicated 5. Spontaneous awakening and breathing trials per protocol 6. Await cardiology recommendations IMPRESSIONS: 1. Acute hypoxemic and hypercarbic respiratory failure secondary to COPD exacerbation secondary to RSV Extent of respiratory insult is unclear at this time. 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 Patient does have pending cultures at this time. Patient with much improved air exchange today compared to previous. We will continue steroids at current dosing for another 24 hours, but likely decrease tomorrow. Will extubate to Airvo to help with pulmonary recruitment. 2. Personal history of stage IIb right breast cancer The patient is currently followed by Dr. Hoyt of oncology and is currently being maintained on adjuvant tamoxifen therapy. 3. 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 Continue Synthroid. Nicotine replacement therapy can be offered to the patient [facility] The patient wishes to remain full CODE STATUS at this time. TIME: 34 minutes of critical care time was spent addressing the patient's acute hypoxemic and hypercarbic respiratory failure, presumptive community-acquired pneumonia, COPD with exacerbation, history of breast cancer, history of Langerhan cell histiocytosis, tobacco dependency, review of all data and collaboration with the care team. (5:45 AM to 6:45 AM) Code Visit 9xxxx: [id number] Critical care first hour
--- NOTE | 2019-06-23 07:48 | PN_ITS ---
Reason for Visit: Follow-up on respiratory failure Subjective: Patient was seen and examined. She was extubated this morning and on Airvo. She denied any worsening shortness of breath or fever or chills. Vitals have remained stable. Off levophed. Objective: Physical exam: General: Alert, Cooperative, extubated, on Airvo HEENT: Atraumatic, PERRLA, EOMI, Normocephalic Oral: Moist Mucosa Neck: Supple Lungs: Diminished, Wheezes - ++ Cardiovascular: Regular rate, Regular Rhythm, Normal S1, Normal S2 Abdomen: Bowel Sounds Present, Soft, Non Tender, Non-Distended, No Hepato- splenomegaly Extremities: No edema, Capillary Refill Less than 3 Seconds, IV access on right foot Skin: No rashes, - - IV on right foot Musculoskeletal: No Tenderness to Palpation of Joints or Extremities Lymphatic: No Cervical, Supraclavicular, or Inguinal Adenopathy Neurological: Cranial nerves II-XII grossly intact, Neuro grossly intact Psych/Mental Status: Normal Affect, Appropriate Vitals/I&O's: Vital Signs Temp Pulse Resp BP Pulse Ox 100.2 F H 67 24 H 94/51 L 98 06/23/19 00:00 06/23/19 06:39 06/23/19 06:39 06/23/19 00:00 06/23/19 06:36 Oxygen Delivery Method Mechanical Ventilator Weight: 82.4 kg Body Mass Index (BMI) 26.9 Intake and Output for Last 24 Hours 06/21/19 06/22/19 06/23/19 23:59 23:59 23:59 Intake Total 5008.82 / 5022.10 4250.79 / 4366.29 1536.06 / 1536.06 Output Total 810 / 810 690 / 1030 740 / 740 Balance 4198.82 / 4212.10 3560.79 / 3336.29 796.06 / 796.06 Microbiology Past 72 Hours 06/20/19 09:20 Blood Culture (Wb) - Anticubital Right Blood Culture - Preliminary No growth in 48 hours. 06/20/19 08:25 Blood Culture (Wb) - Left Wrist Blood Culture - Preliminary No growth in 48 hours. 06/21/19 01:45 Sputum, Expectorated/Coughed Gram Stain - Final 06/20/19 08:20 Mucosa - Nasopharyngeal Respiratory Panel (PCR) - Final RSV A 06/20/19 09:00 Urine Catheter - Catheter Legionella Antigen - Final 06/20/19 09:00 Urine Catheter - Catheter Streptococcus pneumoniae Antigen (M - Final Laboratory Results 06/22/19 17:37: POC Glucose 109 06/23/19 06:11: Specimen Type ART, Sample Site L Radial, pH 7.39, Bicarbonate Actual 25.6, POC Total CO2 27, Base Excess 1, O2 Saturation 96, O2 % 30, ABG pCO2 42.2, ABG pO2 82, José Miguel Test POS, O2 Delivery Device Vent, Vent Mode CPAP PS, POC PEEP 5, POC Pressure Suppt 5, Blood Gas Notified Whom ICU MD Current Medications Acetaminophen (Tylenol) 650 mg PO Q6H PRN PRN PRN Reason: Pain Score 1-3/Temp > 100.7 F Last Admin: 06/20/19 19:50 Dose: 650 mg Documented by: Al Hydroxide/Mg Hydroxide (Mylanta Ii) 30 ml PO Q6H PRN PRN PRN Reason: Gastric Burning Albuterol Sulfate (Ventolin Aerosols) 2.5 mg INHALATION Q2H PRN PRN PRN Reason: dyspnea, wheezing Last Admin: 06/20/19 09:18 Dose: 2.5 mg Documented by: Albuterol/Ipratropium (Duoneb) 3 ml INHALATION Q4H.RT [facility] Last Admin: 06/23/19 06:39 Dose: 3 ml Documented by: Aspirin (Aspirin, Baby) 81 mg PO DAILY@0800 [facility] Last Admin: 06/22/19 11:24 Dose: 81 mg Documented by: Chlorhexidine Gluconate () 15 ml PO BID [facility] Last Admin: 06/22/19 21:39 Dose: 15 ml Documented by: Enoxaparin Sodium (Lovenox) 70 mg SC Q12@0600,1800 [facility] Last Admin: 06/23/19 05:04 Dose: 70 mg Documented by: Glucagon () 1 mg IM .X1 PRN PRN Reason: Hypoglycemia Guaifenesin (Robitussin) 10 ml PO Q4H PRN PRN PRN Reason: COUGH Hydralazine HCl (Apresoline Iv) 10 mg IV Q4H PRN PRN PRN Reason: SBP > 160 Sodium Chloride () 250 mls @ 15 mls/hr IV .[id number] PRN PRN Reason: Saline Flush Last Infusion: 06/22/19 19:00 Dose: Infused Documented by: Sodium Chloride () 250 mls @ 15 mls/hr IV .[id number] PRN PRN Reason: Additional IVPB Infusion Norepinephrine Bitartrate 8 mg (/ Sodium Chloride) 250 mls @ 9.375 mls/hr CONT INF .[id number] [facility]; Protocol Last Titration: 06/22/19 23:00 Dose: 1 mcg/min, 1.9 mls/hr Documented by: Famotidine 20 mg/ Sodium (Chloride) 10 mls @ 300 mls/hr IV BID [facility] Last Infusion: 06/22/19 21:48 Dose: Infused Documented by: Enteral Nutritional Formula (Vital Af 1.2 Bony Liquid) 1,000 mls @ 60 mls/hr GT .[id number] [facility] Last Admin: 06/22/19 14:30 Dose: 20 mls/hr Documented by: Levothyroxine Sodium (Synthroid) 137 mcg PO DAILY@0600 [facility] Last Admin: 06/23/19 05:04 Dose: 137 mcg Documented by: Magnesium Hydroxide (Milk Of Magnesia) 30 ml PO DAILY PRN PRN PRN Reason: Constipation Methylprednisolone (Solu-Medrol) 40 mg IV Q8 [facility] Last Admin: 06/23/19 05:04 Dose: 40 mg Documented by: Nicotine (Nicoderm Cq (Pbkc)) 7 mg TRANSDERM. DAILY [facility] Last Admin: 06/23/19 05:17 Dose: 7 mg Documented by: Nitroglycerin (Nitrostat) 0.4 mg SUBLINGUAL Q5M PRN PRN Reason: CARDIAC/CHEST PAIN Ondansetron HCl (Zofran) 4 mg IV Q8H PRN PRN PRN Reason: NAUSEA/VOMITING Prochlorperazine Edisylate (Compazine Iv) 5 mg IV Q4H PRN PRN PRN Reason: Breakthrough Nausea/Vomiting Sodium Chloride () 10 - 40 ml IV UD PRN PRN Reason: SALINE FLUSH Last Admin: 06/22/19 05:16 Dose: 20 ml Documented by: Tamoxifen Citrate (Nolvadex) 20 mg PO DAILY [facility] Last Admin: 06/22/19 11:24 Dose: 20 mg Documented by: Throat Lozenges (Cepacol Sore Throat Lozenge) 1 lozenge MUCOUS MEM Q2H PRN PRN PRN Reason: Sore Throat/Cough STROKE Vital Signs/Narrative: Vital Signs Pulse Resp Pulse Ox 06/23/19 06:39 67 24 H 06/23/19 06:36 64 27 H 98 06/23/19 05:07 15 06/23/19 04:00 68 Medical Necessity - Tobacco Use Smoking Status: Current every day smoker Tobacco Use: Cigarettes Assessment/Plan All Active Problems (Last Reviewed 06/20/19 @ 09:45 by Mike Pope MD) Encounter for insertion of venous access port (Resolved) Exertional dyspnea (Acute) Sore throat (Resolved) Perineal pain (Resolved) Diarrhea (Resolved) Nausea vomiting and diarrhea (Resolved) Large bowel obstruction (Resolved) Ileus (Resolved) Hypokalemia due to loss of potassium (Resolved) 73-year-old female with past medical history of right breast CA, chronic respiratory failure, on 2 L of oxygen, COPD/Langerhans cell histiocytosis who was transferred from [facility] with progressive shortness of breath. 1. Acute hypoxic respiratory failure, likely secondary to RSV related COPD exacerbation Patient is still intubated, wheezy on exam, RSV positive on respiratory panel, negative chest x-ray, blood cultures are pending, urine Legionella and streptococcal antigen negative On IV steroids, breathing treatments, veneer drier following 2. Acute NSTEMI, with new T-wave inversions, EKG appears improved On Lovenox therapeutic dosing, aspirin, Cardiology consulted, continue to monitor 3. Suspected Community-acquired pneumonia, ruled out with negative chest x-ray here MRSA screen is negative. Blood cultures negative, off antibiotics 4. Hypotension/shock, unclear etiology, probable cardiogenic, EF 40%, required use of Levophed Off Levophed, BP have improved, will continue to monitor pressures. 5. Right breast CA stage IIIb, follows in the outpatient with oncology 6. Hypothyroidism, continue on Synthroid 7. Tobacco dependence, advised to quit 8. DVT prophylaxis - On Lovenox therapeutic 9. Code status: Full code Code Visit Inpatient E&M: 98769 Subs Hosp L2
[2019-06-23] MEDS: Tamoxifen 10 MG Tablet 20 MG PO (10:47)
[2019-06-23] MEDS: Aspirin 81 MG TAB.CHEW PO (10:48)
[2019-06-23] MEDS: Famotidine 20mg IV Push Syringe Q24 300 MG IV ×2 (10:48→21:40)
--- NOTE | 2019-06-23 12:10 | CASEMGMT ---
SW spoke w/pt at bedside in regard to discharge plan, alcohol use, palliative care. SW spoke w/pt initially about plan at discharge. Pt still plans to return home at discharge, states her is home and can help. Pt said therapy went okay, it's the breathing that is the issue. SW then spoke w/pt about alcohol consumption. Pt does not identify her alcohol use as a problem and declined any resources or information in regard to alcohol abuse. SW also spoke w/pt about palliative care. Pt states she is not normally symptomatic, and does not feel this would be helpful at this time. Pt also gave pt her insurance card, SW made a copy and will forward it on to registration. JINA Celis
[2019-06-23] MEDS: guaiFENesin 10 ML UDC (200MG/10ML) PO (20:28)
[2019-06-23] MEDS: Albuterol 2.5 MG/3 ML VIAL.NEB. INHALATION (20:53)
[2019-06-23] MEDS: Acetaminophen 325 MG Tablet 650 MG PO (21:44)
[2019-06-24] VITALS (36 sets, daily range): BP systolic 101–149; BP diastolic 62–109; PULSE 64–93; RESP 12–30; TEMP 36.6–37.1; O2SAT 89–100
[2019-06-24] MEDS: guaiFENesin 10 ML UDC (200MG/10ML) PO ×5 (00:38→21:39)
[2019-06-24] MEDS: LORazepam 1 MG Tablet PO (00:40)
[2019-06-24] MEDS: Ipratropium/Albuterol Sulfate 3 ML AMPUL.NEB INHALATION ×6 (02:00→23:00)
[2019-06-24] MEDS: Enoxaparin 80 MG/0.8 ML Syringe 70 MG SC ×2 (05:05→17:00)
[2019-06-24] MEDS: Levothyroxine 137 MCG Tablet PO (05:05)
[2019-06-24 05:36] LABS: Absolute Lymphocyte Count 0.64 X10^3/uL (0.83-4.51); Basophil# 0.01 X10^3/uL; Basophil% 0.1 % (0-1); Hemoglobin 10.6 g/dL (12.0-15.0); Lymphocyte # 0.64 X10^3/ul (4.0); Mean Corp Hgb Conc 33.1 g/dL (32-36); Mean Corpuscular Volume 99.7 fL (81-99); Mean Platelet Vol. 10.2 fl (6.2-12.0); Monocyte# 0.41 X10^3/uL; Monocyte% 5.8 % (0-10); NRBC Flagged by Analyzer 0 % (0-5); Neutrophil % 84.3 % (47-70); Platelet Count 168 K/mm3 (150-450); RBC Distribution Width CV 14.9 % (11.6-14.6); RBC Distribution Width SD 54.5 fl (35.1-43.9); Red Blood Count 3.21 M/mm3 (4.2-5.4); White Blood Count 7.1 K/mm3 (4.4-11.0)
[2019-06-24 05:43] LABS: Anion Gap 1 (5-15); BUN 16 mg/dL (7-18); BUN/Creat Ratio 21.7 RATIO (10-20); Chloride 109 mmol/L (98-107); Creatinine, Serum 0.74 mg/dL (0.55-1.02); EST Glomerular Filtration Rate 82 mL/min (>60); Est Glom Filt Rate - Afr Amer 100 mL/min (>60); Glucose 115 mg/dL (74-106); Magnesium 2.3 mg/dL (1.6-2.6); Phosphorus 3.1 mg/dL (2.5-4.9); Potassium 4.6 mmol/L (3.5-5.1); Sodium Level 141 mmol/L (136-145)
--- NOTE | 2019-06-24 06:01 | PN_ITS ---
Subjective: The patient was seen and examined at the bedside this morning. Events from the last 24 hours have been reviewed. The patient is currently afebrile, hemodynamically stable and maintaining appropriate oxygen saturations on Airvo with an FiO2 requirement of 31%. The patient reports the continued presence of shortness of breath and cough. She is tentatively scheduled for cardiac catheterization tomorrow. Objective: The patient's most recent lab work, culture data and imaging studies have all been personally reviewed. Respiratory viral panel was positive for RSV. Sputum Gram stain was positive for the presence of a gram-positive moises. General: Alert, Cooperative, No apparent distress HEENT: Atraumatic, PERRLA, Normocephalic Oral: No Gingival or Mucosal Lesions/ Ulcerations Neck: Supple, No Nodes, Trachea Midline Lungs: Diminished, Wheezes Cardiovascular: Regular rate, Regular Rhythm, Normal S1, Normal S2 Abdomen: Bowel Sounds Present, Soft, Non Tender Extremities: No clubbing, No cyanosis, Edema Skin: No breakdown Musculoskeletal: No Tenderness to Palpation of Joints or Extremities Lymphatic: No Cervical, Supraclavicular, or Inguinal Adenopathy Neurological: Cranial nerves II-XII grossly intact, Neuro grossly intact Psych/Mental Status: Normal Affect, Appropriate Vital Signs Temp Pulse Resp BP Pulse Ox 98 F 72 23 H 129/70 H 98 06/24/19 04:00 06/24/19 05:00 06/24/19 05:00 06/24/19 05:00 06/24/19 05:00 Oxygen Flow Rate (L/min) 60 Oxygen Delivery Method CPAP Weight: 176 lb 9.444 oz Body Mass Index (BMI) 26.9 Intake and Output for Last 24 Hours 06/22/19 06/23/19 06/24/19 23:59 23:59 23:59 Intake Total 4250.79 / 4366.29 2026.06 / 2506.06 480 / 480 Output Total 690 / 1030 1090 / 1640 550 / 550 Balance 3560.79 / 3336.29 936.06 / 866.06 -70 / -70 Labs (Last 48 Hours) 06/22/19 06/22/19 06/23/19 06:10 17:37 06:11 WBC RBC Hgb Hct MCV MCH MCHC RDW Std Deviation RDW Coeff of Ermelinda Plt Count MPV Immature Gran % (Auto) Neut % (Auto) Lymph % (Auto) [place] % (Auto) Eos % (Auto) Baso % (Auto) Absolute Neuts (auto) Absolute Lymphs (auto) Nucleated RBC % Specimen Type ART ART Sample Site L Radial L Radial pH 7.38 7.39 Bicarbonate Actual 25.4 25.6 POC Total CO2 27 27 Base Excess 0 1 O2 Saturation 98 96 O2 % 30 30 ABG pCO2 43.2 42.2 ABG pO2 107 H 82 José Miguel Test POS POS O2 Delivery Device Vent Vent Vent Mode CPAP PS CPAP PS POC PEEP 5 5 POC Pressure Suppt 5 5 Blood Gas Notified Whom HOSP ICU Sodium Potassium Chloride Carbon Dioxide Anion Gap BUN Creatinine Estim Creat Clear Calc Est GFR (MDRD) Af Amer Est GFR (MDRD) Non-Af BUN/Creatinine Ratio Glucose Calcium Phosphorus Magnesium POC Glucose 109 06/24/19 06/24/19 05:15 05:15 WBC 7.1 RBC 3.21 L Hgb 10.6 L Hct 32.0 L MCV 99.7 H MCH 33.0 H MCHC 33.1 RDW Std Deviation 54.5 H RDW Coeff of Ermelinda 14.9 H Plt Count 168 MPV 10.2 Immature Gran % (Auto) 0.800 Neut % (Auto) 84.3 H Lymph % (Auto) 9.0 L [place] % (Auto) 5.8 Eos % (Auto) 0.0 Baso % (Auto) 0.1 Absolute Neuts (auto) 6.0 Absolute Lymphs (auto) 0.64 L Nucleated RBC % 0 Specimen Type Sample Site pH Bicarbonate Actual POC Total CO2 Base Excess O2 Saturation O2 % ABG pCO2 ABG pO2 José Miguel Test O2 Delivery Device Vent Mode POC PEEP POC Pressure Suppt Blood Gas Notified Whom Sodium 141 Potassium 4.6 Chloride 109 H Carbon Dioxide 31.0 Anion Gap 1 L BUN 16 Creatinine 0.74 Estim Creat Clear Calc 48.30 Est GFR (MDRD) Af Amer 100 Est GFR (MDRD) Non-Af 82 BUN/Creatinine Ratio 21.7 H Glucose 115 H Calcium 8.0 L Phosphorus 3.1 Magnesium 2.3 POC Glucose Microbiology 06/21/19 01:45 Sputum, Expectorated/Coughed Gram Stain - Final 06/21/19 01:45 Sputum, Expectorated/Coughed Respiratory Culture - Final Gram positive moises 06/20/19 09:20 Blood Culture (Wb) - Anticubital Right Blood Culture - Preliminary No growth in 48 hours. 06/20/19 08:25 Blood Culture (Wb) - Left Wrist Blood Culture - Preliminary No growth in 48 hours. Clinical Impression(s) from Imaging Studies Chest X-Ray 06/21/19 01:25 IMPRESSION: No acute cardiopulmonary disease. Electronically Signed: Christy Peter MD at 2:08 EST , Service support , KUB X-Ray 06/21/19 01:25 IMPRESSION: Nasogastric tube is described above, recommend advancing the tube approximately 6.1 cm Left basilar atelectasis. Mild distention of small bowel. Electronically Signed: Christy Peter MD at 2:08 EST , Service support , KUB X-Ray 06/21/19 11:47 IMPRESSION: The tip of the orogastric tube is in the fundal portion of the stomach. Electronically Signed: Chang Shepard, at 13:12 EST , Service support , Medical Necessity - Tobacco Use Smoking Status: Current every day smoker Tobacco Use: Cigarettes Assessment/Plan All Active Problems (Last Reviewed 06/20/19 @ 09:45 by Mike Pope MD) Encounter for insertion of venous access port (Resolved) Exertional dyspnea (Acute) Sore throat (Resolved) Perineal pain (Resolved) Diarrhea (Resolved) Nausea vomiting and diarrhea (Resolved) Large bowel obstruction (Resolved) Ileus (Resolved) Hypokalemia due to loss of potassium (Resolved) RECOMMENDATIONS: 1. Continue scheduled bronchodilators as ordered. 2. Continue IV steroids. The patient can likely be transitioned to prednisone 40 mg daily beginning tomorrow. 3. Wean supplemental oxygen to maintain saturations at or above 90%. 4. Encourage incentive spirometer use and mobilize patient as tolerated. 5. Cardiac catheterization tomorrow. IMPRESSIONS: 1. 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 Respiratory cultures have been unrevealing. The patient was able to be successfully extubated. She will remain on scheduled bronchodilators and steroids. Her oxygen can be weaned to maintain saturations at or above 90%. Encourage incentive spirometer use and mobilize patient as tolerated. 2. Personal history of stage IIb right breast cancer The patient is currently followed by Dr. Hoyt of oncology and is currently being maintained on adjuvant tamoxifen therapy. 3. 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 Continue Synthroid. Smoking cessation counseling was provided. Nicotine replacement therapy can be offered to the patient while admitted to the hospital. The patient wishes to remain full CODE STATUS at this time. This note was generated with [employer] dictation software. It may contain incorrect words, spelling, and punctuation that were not noted in checking the note before signing. Code Visit Inpatient E&M: 49841 Subs Hosp L3
--- NOTE | 2019-06-24 07:13 | PN_ITS ---
Reason for Visit: Follow-up on respiratory failure Subjective: Patient was seen and examined. She complains of feeling more SOB, denies chest pain. Remains on Airvo. Bnpep is elevated; 1050, given 1 dose of Lasix 20mg IV. No fever or chills. Objective: Physical exam: General: Alert, Cooperative, extubated, on Airvo HEENT: Atraumatic, PERRLA, EOMI, Normocephalic Oral: Moist Mucosa Neck: Supple Lungs: Diminished, Wheezes - ++ Cardiovascular: Regular rate, Regular Rhythm, Normal S1, Normal S2 Abdomen: Bowel Sounds Present, Soft, Non Tender, Non-Distended, No Hepato- splenomegaly Extremities: No edema, Capillary Refill Less than 3 Seconds, IV access on right foot Skin: No rashes, - - IV on right foot Musculoskeletal: No Tenderness to Palpation of Joints or Extremities Lymphatic: No Cervical, Supraclavicular, or Inguinal Adenopathy Neurological: Cranial nerves II-XII grossly intact, Neuro grossly intact Psych/Mental Status: Normal Affect, Appropriate Vitals/I&O's: Vital Signs Temp Pulse Resp BP Pulse Ox 98 F 86 23 H 124/75 H 95 06/24/19 04:00 06/24/19 06:00 06/24/19 06:00 06/24/19 06:00 06/24/19 06:00 Oxygen Flow Rate (L/min) 60 Oxygen Delivery Method CPAP Weight: 80.1 kg Body Mass Index (BMI) 26.9 Intake and Output for Last 24 Hours 06/22/19 06/23/19 06/24/19 23:59 23:59 23:59 Intake Total 4250.79 / 4366.29 2026.06 / 2506.06 480 / 480 Output Total 690 / 1030 1090 / 1640 550 / 550 Balance 3560.79 / 3336.29 936.06 / 866.06 -70 / -70 Microbiology Past 72 Hours 06/21/19 01:45 Sputum, Expectorated/Coughed Gram Stain - Final 06/21/19 01:45 Sputum, Expectorated/Coughed Respiratory Culture - Final Gram positive moises 06/20/19 09:20 Blood Culture (Wb) - Anticubital Right Blood Culture - Preliminary No growth in 48 hours. 06/20/19 08:25 Blood Culture (Wb) - Left Wrist Blood Culture - Preliminary No growth in 48 hours. Laboratory Results 06/24/19 05:15: WBC 7.1, RBC 3.21 L, Hgb 10.6 L, Hct 32.0 L, MCV 99.7 H, MCH 33.0 H, MCHC 33.1, RDW Std Deviation 54.5 H, RDW Coeff of Ermelinda 14.9 H, Plt Count 168, MPV 10.2, Immature Gran % (Auto) 0.800, Neut % (Auto) 84.3 H, Lymph % (Auto) 9.0 L, [place] % (Auto) 5.8, Eos % (Auto) 0.0, Baso % (Auto) 0.1, Absolute Neuts (auto) 6.0, Absolute Lymphs (auto) 0.64 L, Nucleated RBC % 0 06/24/19 05:15: Sodium 141, Potassium 4.6, Chloride 109 H, Carbon Dioxide 31.0, Anion Gap 1 L, BUN 16, Creatinine 0.74, Estim Creat Clear Calc 48.30, Est GFR (MDRD) Af Amer 100, Est GFR (MDRD) Non-Af 82, BUN/Creatinine Ratio 21.7 H, Glucose 115 H, Calcium 8.0 L, Phosphorus 3.1, Magnesium 2.3 Current Medications Acetaminophen (Tylenol) 650 mg PO Q6H PRN PRN PRN Reason: Pain Score 1-3/Temp > 100.7 F Last Admin: 06/23/19 21:44 Dose: 650 mg Documented by: Al Hydroxide/Mg Hydroxide (Mylanta Ii) 30 ml PO Q6H PRN PRN PRN Reason: Gastric Burning Albuterol Sulfate (Ventolin Aerosols) 2.5 mg INHALATION Q2H PRN PRN PRN Reason: dyspnea, wheezing Last Admin: 06/23/19 20:53 Dose: 2.5 mg Documented by: Albuterol/Ipratropium (Duoneb) 3 ml INHALATION Q4H.RT [facility] Last Admin: 06/24/19 07:05 Dose: 3 ml Documented by: Aspirin (Aspirin, Baby) 81 mg PO DAILY@0800 [facility] Last Admin: 06/23/19 10:48 Dose: 81 mg Documented by: Enoxaparin Sodium (Lovenox) 70 mg SC Q12@0600,1800 [facility] Last Admin: 06/24/19 05:05 Dose: 70 mg Documented by: Glucagon () 1 mg IM .X1 PRN PRN Reason: Hypoglycemia Guaifenesin (Robitussin) 10 ml PO Q4H PRN PRN PRN Reason: COUGH Last Admin: 06/24/19 05:05 Dose: 10 ml Documented by: Hydralazine HCl (Apresoline Iv) 10 mg IV Q4H PRN PRN PRN Reason: SBP > 160 Sodium Chloride () 250 mls @ 15 mls/hr IV .[id number] PRN PRN Reason: Saline Flush Last Infusion: 06/22/19 19:00 Dose: Infused Documented by: Sodium Chloride () 250 mls @ 15 mls/hr IV .[id number] PRN PRN Reason: Additional IVPB Infusion Famotidine 20 mg/ Sodium (Chloride) 10 mls @ 300 mls/hr IV BID [facility] Last Infusion: 06/23/19 22:22 Dose: Infused Documented by: Dextrose (Dextrose 10%-Water) 250 mls @ 999 mls/hr IV .Q16M PRN; Protocol PRN Reason: HYPOGLYCEMIA Levothyroxine Sodium (Synthroid) 137 mcg PO DAILY@0600 [facility] Last Admin: 06/24/19 05:05 Dose: 137 mcg Documented by: Magnesium Hydroxide (Milk Of Magnesia) 30 ml PO DAILY PRN PRN PRN Reason: Constipation Methylprednisolone (Solu-Medrol) 40 mg IV Q8 [facility] Last Admin: 06/24/19 05:05 Dose: 40 mg Documented by: Nicotine (Nicoderm Cq (Pbkc)) 7 mg TRANSDERM. DAILY [facility] Last Admin: 06/23/19 05:17 Dose: 7 mg Documented by: Nitroglycerin (Nitrostat) 0.4 mg SUBLINGUAL Q5M PRN PRN Reason: CARDIAC/CHEST PAIN Ondansetron HCl (Zofran) 4 mg IV Q8H PRN PRN PRN Reason: NAUSEA/VOMITING Prochlorperazine Edisylate (Compazine Iv) 5 mg IV Q4H PRN PRN PRN Reason: Breakthrough Nausea/Vomiting Sodium Chloride () 10 - 40 ml IV UD PRN PRN Reason: SALINE FLUSH Last Admin: 06/22/19 05:16 Dose: 20 ml Documented by: Tamoxifen Citrate (Nolvadex) 20 mg PO DAILY [facility] Last Admin: 06/23/19 10:47 Dose: 20 mg Documented by: Throat Lozenges (Cepacol Sore Throat Lozenge) 1 lozenge MUCOUS MEM Q2H PRN PRN PRN Reason: Sore Throat/Cough STROKE Vital Signs/Narrative: Vital Signs Temp Pulse Resp BP Pulse Ox 06/24/19 06:00 86 23 H 124/75 H 95 06/24/19 05:00 72 23 H 129/70 H 98 06/24/19 04:00 98 F 71 22 H 124/68 H 97 Medical Necessity - Tobacco Use Smoking Status: Current every day smoker Tobacco Use: Cigarettes Assessment/Plan All Active Problems (Last Reviewed 06/20/19 @ 09:45 by Mike Pope MD) Encounter for insertion of venous access port (Resolved) Exertional dyspnea (Acute) Sore throat (Resolved) Perineal pain (Resolved) Diarrhea (Resolved) Nausea vomiting and diarrhea (Resolved) Large bowel obstruction (Resolved) Ileus (Resolved) Hypokalemia due to loss of potassium (Resolved) 73-year-old female with past medical history of right breast CA, chronic respiratory failure, on 2 L of oxygen, COPD/Langerhans cell histiocytosis who was transferred from [facility] with progressive shortness of breath. 1. Acute hypoxic respiratory failure, likely secondary to RSV related COPD exacerbation, s/p intubation extubated on 06/23/19 On Airvo, RSV positive on respiratory panel, negative chest x-ray, blood cultures are negative, urine Legionella and streptococcal antigen negative On IV steroids, breathing treatments, welfare director following 2. Acute systolic CHF, probable secondary to Takotsubo cardiomyopathy, EF 40% BnPep elevated at 1050, on Lasix IV 3. Acute NSTEMI, with new T-wave inversions, EKG appears improved On Lovenox therapeutic dosing, aspirin, Cardiology consulted, continue to monitor 4. Suspected Community-acquired pneumonia, ruled out with negative chest x-ray here MRSA screen is negative. Blood cultures negative, off antibiotics 5. Hypotension/shock, unclear etiology, probable cardiogenic, EF 40%, required use of Levophed Off Levophed, BP have improved, will continue to monitor pressures. 6. Right breast CA stage IIIb, follows in the outpatient with oncology 7. Hypothyroidism, continue on Synthroid 8. Tobacco dependence, advised to quit 9. DVT prophylaxis - On Lovenox therapeutic 10. Code status: Full code Code Visit Inpatient E&M: 52187 Subs Hosp L2
--- NOTE | 2019-06-24 07:59 | PN.CARD_ITS ---
Subjectve: Patient seen and evaluated Objective: Vital Signs Temp Pulse Resp BP Pulse Ox 98 F 86 23 H 124/75 H 95 06/24/19 04:00 06/24/19 06:00 06/24/19 06:00 06/24/19 06:00 06/24/19 06:00 Oxygen Flow Rate (L/min) 60 Oxygen Delivery Method CPAP Weight: 176 lb 9.444 oz Body Mass Index (BMI) 26.9 Intake and Output for Last 24 Hours 06/22/19 06/23/19 06/24/19 23:59 23:59 23:59 Intake Total 4250.79 / 4366.29 2026.06 / 2506.06 480 / 480 Output Total 690 / 1030 1090 / 1640 550 / 550 Balance 3560.79 / 3336.29 936.06 / 866.06 -70 / -70 General: Awake, Alert, Oriented x 3 HEENT: PERRL, EOMI, Sclera Non Icteric Neck: Supple, Good ROM, No Lymph Node Enlargement Lungs: Clear to auscultation Cardiovascular: Regular Rhythm, Normal S1, Normal S2, No Murmurs, No Rubs, No Gallops Vascular: No Carotid Bruits, Normal Femoral Pulses, Normal Radial Pulses, Normal Dorsalis Pedal Pulse, Normal Posterior Tibial Pulses 06/24/19 05:15: WBC 7.1, RBC 3.21 L, Hgb 10.6 L, Hct 32.0 L, MCV 99.7 H, MCH 33 .0 H, MCHC 33.1, Plt Count 168, MPV 10.2, Immature Gran % (Auto) 0.800, Neut % (Auto) 84.3 H, Lymph % (Auto) 9.0 L, [place] % (Auto) 5.8, Eos % (Auto) 0.0, Baso % (Auto) 0.1, Absolute Neuts (auto) 6.0, Nucleated RBC % 0 06/24/19 05:15: Sodium 141, Potassium 4.6, Chloride 109 H, Carbon Dioxide 31.0, Anion Gap 1 L, BUN 16, Creatinine 0.74, Est GFR (MDRD) Af Amer 100, Est GFR (MDRD) Non-Af 82, BUN/Creatinine Ratio 21.7 H, Glucose 115 H, Calcium 8.0 L, Phosphorus 3.1, Magnesium 2.3 Rhythm: EKG: ECHO: Stress Test: Cardiac Cath: PCI: CT Surgery: Holter monitor: EPS: PPM: CXR: Chest CT Scan: Medical Necessity - Tobacco Use Smoking Status: Current every day smoker Tobacco Use: Cigarettes Assessment/Plan 1. Respiratory failure with abnormal cardiac enzymes * Patient presented with respiratory failure and was noted to have mildly abn ormal cardiac enzymes and EKG changes suggestive of anterior ischemia. Takotsubo cardiomyopathy cannot be completely excluded. * Echocardiogram done demonstrates evidence of left ventricular systolic dysfunction with anterior apical hypokinesis and basal inferior and basal lateral and basal anterior hypokinesis. The above is most likely consistent with Takotsubo cardiomyopathy as well as the EKG changes. * Patient will ultimately need a left heart catheterization to assess her coronary anatomy. * Patient has been successfully extubated and is currently being optimized. Would recommend an natruretic peptide today. Depending on the findings recommendations to be made regarding diuretics. * Depending on the findings further recommendations will be made. For now will patient will continue with supportive therapy. Would not change medical management at this particular time. * * Thank you for allowing me to participate in the care of your patient. Please don't hesitate to call if any issues arise
--- NOTE | 2019-06-24 09:26 | CASEMGMT ---
SW participated in ICU rounds, spoke w/pt again after rounds. Pt continues to say that going home is the only option for her. Pt may be open to home health care however. SW did give her a list of nursing homes with Medicare star ratings that take her insurance, in the event something changes and custodial for rehab is warranted. SW also gave pt a list of home health care agencies with star ratings so she can choose an agency for home health care. SW/CM will continue to follow for discharge needs. JINA Celis
[2019-06-24] MEDS: Aspirin 81 MG TAB.CHEW PO (09:41)
[2019-06-24] MEDS: Benzonatate 100 MG Capsule PO (09:41)
[2019-06-24] MEDS: Tamoxifen 10 MG Tablet 20 MG PO (09:41)
[2019-06-24] MEDS: Famotidine 20mg IV Push Syringe Q24 300 MG IV (09:45)
[2019-06-24 10:31] LABS: BNP,B-Type NATRIURETIC PEPTIDE 1050.7 pg/mL (0-100)
[2019-06-24] MEDS: Furosemide 20 MG/2 ML VIAL IV ×2 (11:29→20:43)
--- NOTE | 2019-06-24 12:55 | CASEMGMT ---
RN CM Note: Spoke with pt re: Home Health on dc for RN, PT/OT. Pt is agreeable and list reviewed with her for [facility] providers. Pt does not have preference. [facility] will be first choice, [facility], [place] [facility]: second choice. [facility] and [facility]. Pt updated. Jerardo HUGHESN RN ACM
[2019-06-24] MEDS: BENZOCAINE/MENTHOL 1 LOZENGE MUCOUS MEM (16:57)
[2019-06-24] MEDS: 0.9% Saline Lock 10 ML Syringe IV ×2 (20:43→21:05)
[2019-06-24] MEDS: CHLORHEXIDINE GLUC 2% CLOTH 1 EACH TOWELETTE TOPICAL (21:05)
[2019-06-24] MEDS: Zolpidem Tartrate 5 MG Tablet PO (21:39)
--- NOTE | 2019-06-24 22:05 | NURSING ---
patient requesting nicotine patch to be removed for the night, stated I cannot wear this it gives me nightmares. Nicotine patch removed from left deltoid at this time.
[2019-06-25] VITALS (37 sets, daily range): BP systolic 94–144; BP diastolic 56–99; PULSE 58–85; RESP 16–30; TEMP 36.6–37.1; O2SAT 92–100
[2019-06-25] MEDS: Ipratropium/Albuterol Sulfate 3 ML AMPUL.NEB INHALATION ×6 (02:52→23:58)
[2019-06-25 04:41] LABS: Absolute Neutrophil Count 6.8 X10^3/uL (2.0-7.7); Basophil# 0.01 X10^3/uL; Basophil% 0.1 % (0-1); Hematocrit 34.7 % (37-47); Hemoglobin 11.5 g/dL (12.0-15.0); Lymphocyte % 7.5 % (19-41); Mean Corp Hgb Conc 33.1 g/dL (32-36); Mean Corpuscular Hgb 32.4 pg (27.0-32.0); Mean Corpuscular Volume 97.7 fL (81-99); Mean Platelet Vol. 10.1 fl (6.2-12.0); Monocyte# 0.52 X10^3/uL; Monocyte% 6.5 % (0-10); NRBC Flagged by Analyzer 0 % (0-5); Neutrophil # 6.78 X10^3/uL (2.7-7.7); Neutrophil % 85.3 % (47-70); POSITIVE DIFFERENTIAL YES; Platelet Count 196 K/mm3 (150-450); RBC Distribution Width CV 14.6 % (11.6-14.6); Red Blood Count 3.55 M/mm3 (4.2-5.4)
[2019-06-25 04:45] LABS: Differential Indicated SCAN CRITERIA MET
[2019-06-25] MEDS: BENZOCAINE/MENTHOL 1 LOZENGE MUCOUS MEM ×2 (04:49→10:34)
[2019-06-25 04:56] LABS: Anion Gap 3 (5-15); BUN 17 mg/dL (7-18); Calcium,Total 8.2 mg/dL (8.5-10.1); Chloride 103 mmol/L (98-107); Creatinine, Serum 0.71 mg/dL (0.55-1.02); EST Glomerular Filtration Rate 87 mL/min (>60); Est Glom Filt Rate - Afr Amer 105 mL/min (>60); Glucose 150 mg/dL (74-106); Potassium 3.9 mmol/L (3.5-5.1); Sodium Level 141 mmol/L (136-145)
[2019-06-25 05:02] LABS: Differential Comment SCANNED
--- NOTE | 2019-06-25 05:36 | EKG12_ITS ---
Test Reason : AM EKG Blood Pressure : / mmHG Vent. Rate : 060 BPM Atrial Rate : 060 BPM P-R Int : 122 ms QRS Dur : 074 ms QT Int : 480 ms P-R-T Axes : 067 090 210 degrees QTc Int : 480 ms Sinus rhythm with Premature supraventricular complexes ST & Marked T wave abnormality, consider anterolateral ischemia Prolonged QT Abnormal ECG When compared with ECG of 22-JUN-2019 08:11, MANUAL COMPARISON REQUIRED, DATA IS UNCONFIRMED Confirmed by JAZMINE SALDIVAR, ELLIOT ([id number]), desk editor KATLYN ALBERTO ([id number]) on 06/30/2019 2:12:54 PM Referred By: FAITH Confirmed By:ELLIOT LUCERO MD
[2019-06-25] MEDS: Aspirin 81 MG TAB.CHEW PO (05:37)
[2019-06-25] MEDS: Levothyroxine 137 MCG Tablet PO (05:37)
[2019-06-25] MEDS: 0.9% Saline Lock 10 ML Syringe IV (05:37)
--- NOTE | 2019-06-25 05:55 | EKG12_ITS ---
Test Reason : AM Blood Pressure : / mmHG Vent. Rate : 077 BPM Atrial Rate : 077 BPM P-R Int : 142 ms QRS Dur : 070 ms QT Int : 476 ms P-R-T Axes : 067 121 208 degrees QTc Int : 538 ms Sinus rhythm with Premature supraventricular complexes and Fusion complexes Marked T wave abnormality, consider anterolateral ischemia Prolonged QT Abnormal ECG When compared with ECG of 20-JUN-2019 11:17, MANUAL COMPARISON REQUIRED, DATA IS UNCONFIRMED Confirmed by MANSOOR SALDIVAR, ALBERTINA ([id number]), writer editor AMANDA WADE ([id number]) on 06/25/2019 2:47:17 PM Referred By: GENA Confirmed By:CHYNA MAX MD
--- NOTE | 2019-06-25 06:49 | PCM.PN.INT ---
Subjective: Patient did well overnight. No acute issues were reported. Patient did receive diuretics with good response. Patient is to have a heart cath this morning and states she is nervous about the lying flat part. Patient has reported a nonproductive cough throughout the evening. General: Alert, Oriented x3, Cooperative, No apparent distress, Well developed, Well nourished, - - No conversational dyspnea. HEENT: Atraumatic, PERRLA, EOMI, Normocephalic, - - No scleral icterus or injection noted Oral: Moist Mucosa, No Gingival or Mucosal Lesions/ Ulcerations Neck: Supple, No JVD, No Nodes, Trachea Midline Lungs: No rhonchi, No wheeze, No rales, Diminished, - Cardiovascular: Normal S1, Normal S2, No murmurs, Irregular Rate, No rub noted, No Gallop Abdomen: Bowel Sounds Present, Soft, Non Tender, Non-Distended Extremities: No clubbing, No cyanosis, Edema Skin: - - No significant change compared to previous Musculoskeletal: No Tenderness to Palpation of Joints or Extremities Lymphatic: No Cervical, Supraclavicular, or Inguinal Adenopathy Neurological: Cranial nerves II-XII grossly intact, Neuro grossly intact, Motor Exam 5/5 strength throughout Psych/Mental Status: Alert and oriented to time, place, person, mood and affect Vital Signs Temp Pulse Resp BP Pulse Ox 36.6 C 62 16 126/61 H 94 06/25/19 04:00 06/25/19 06:46 06/25/19 06:46 06/25/19 06:00 06/25/19 06:46 Oxygen Flow Rate (L/min) 25 Oxygen Delivery Method CPAP Weight: 75.9 kg Body Mass Index (BMI) 26.9 Intake and Output for Last 24 Hours 06/23/19 06/24/19 06/25/19 23:59 23:59 23:59 Intake Total 2026.06 / 2506.06 1240 / 1500 260 / 260 Output Total 1090 / 1640 2475 / 3675 1850 / 1850 Balance 936.06 / 866.06 -1235 / -2175 -1590 / -1590 Labs (Last 48 Hours) 06/24/19 06/24/19 06/24/19 05:15 05:15 05:15 WBC 7.1 RBC 3.21 L Hgb 10.6 L Hct 32.0 L MCV 99.7 H MCH 33.0 H MCHC 33.1 RDW Std Deviation 54.5 H RDW Coeff of Ermelinda 14.9 H Plt Count 168 MPV 10.2 Immature Gran % (Auto) 0.800 Neut % (Auto) 84.3 H Lymph % (Auto) 9.0 L [place] % (Auto) 5.8 Eos % (Auto) 0.0 Baso % (Auto) 0.1 Absolute Neuts (auto) 6.0 Absolute Lymphs (auto) 0.64 L Nucleated RBC % 0 Differential Comment Sodium 141 Potassium 4.6 Chloride 109 H Carbon Dioxide 31.0 Anion Gap 1 L BUN 16 Creatinine 0.74 Estim Creat Clear Calc 48.30 Est GFR (MDRD) Af Amer 100 Est GFR (MDRD) Non-Af 82 BUN/Creatinine Ratio 21.7 H Glucose 115 H Calcium 8.0 L Phosphorus 3.1 Magnesium 2.3 B-Natriuretic Peptide 1050.7 H 06/25/19 06/25/19 04:30 04:30 WBC 8.0 RBC 3.55 L Hgb 11.5 L Hct 34.7 L MCV 97.7 MCH 32.4 H MCHC 33.1 RDW Std Deviation 52.0 H RDW Coeff of Ermelinda 14.6 Plt Count 196 MPV 10.1 Immature Gran % (Auto) 0.600 Neut % (Auto) 85.3 H Lymph % (Auto) 7.5 L [place] % (Auto) 6.5 Eos % (Auto) 0.0 Baso % (Auto) 0.1 Absolute Neuts (auto) 6.8 Absolute Lymphs (auto) 0.60 L Nucleated RBC % 0 Differential Comment SCANNED Sodium 141 Potassium 3.9 Chloride 103 Carbon Dioxide 35.0 H Anion Gap 3 L BUN 17 Creatinine 0.71 Estim Creat Clear Calc 48.30 Est GFR (MDRD) Af Amer 105 Est GFR (MDRD) Non-Af 87 BUN/Creatinine Ratio 24.0 H Glucose 150 H Calcium 8.2 L Phosphorus Magnesium B-Natriuretic Peptide Microbiology 06/21/19 01:45 Sputum, Expectorated/Coughed Gram Stain - Final 06/21/19 01:45 Sputum, Expectorated/Coughed Respiratory Culture - Final Gram positive moises Medical Necessity - Tobacco Use Smoking Status: Current every day smoker Tobacco Use: Cigarettes Assessment/Plan All Active Problems (Last Reviewed 06/20/19 @ 09:45 by Mike Pope MD) Encounter for insertion of venous access port (Resolved) Exertional dyspnea (Acute) Sore throat (Resolved) Perineal pain (Resolved) Diarrhea (Resolved) Nausea vomiting and diarrhea (Resolved) Large bowel obstruction (Resolved) Ileus (Resolved) Hypokalemia due to loss of potassium (Resolved) RECOMMENDATIONS: 1. Continue to wean Airvo as tolerated. Wean FiO2 to maintain oxygen saturations at or above 90%. 2. Continue scheduled bronchodilators, but wean IV steroids. 3. Potentially transfer from the intensive care unit pending results of heart catheterization 4. Patient would likely benefit from continued diuretics after recovery from heart cath 5. Await cardiology recommendations IMPRESSIONS: 1. Acute hypoxemic and hypercarbic respiratory failure secondary to COPD exacerbation secondary to RSV Extent of respiratory insult is unclear at this time. 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 Cultures have been relatively unremarkable. Patient is currently off of antibiotics and doing well. Patient did have an elevated BNP yesterday suggestive of acute on chronic systolic congestive heart failure. Patient is to have a heart catheterization today for evaluation of LAD versus Takotsubu cardiomyopathy. Pending the results of the heart cath, patient may be able to be transferred to the progressive care unit. Patient can have flow increased on AirVo to help with catheterization if necessary. 2. Personal history of stage IIb right breast cancer The patient is currently followed by Dr. Hoyt of oncology and is currently being maintained on adjuvant tamoxifen therapy. 3. 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 Continue Synthroid. Nicotine replacement therapy can be offered to the patient while admitted to the hospital. The patient wishes to remain DNR Comfort Care arrest with intubation at this time. Code Visit Inpatient E&M: 47858 [facility] Hosp L3
--- NOTE | 2019-06-25 07:24 | PCM.PN.HOSP ---
Reason for Visit: Follow-up on respiratory failure Subjective: Patient was seen and examined. She had a cardiac cath today that showed 80% occlusion of mid LAD for which she had a ANUP placed. She was seen post-cath in ICU. She denied any chest pain. She is on 4L oxygen She feels fatigued. Still wheezing. Objective: Physical exam: General: Alert, Cooperative, extubated, on Airvo HEENT: Atraumatic, PERRLA, EOMI, Normocephalic Oral: Moist Mucosa Neck: Supple Lungs: Diminished, Wheezes - ++ Cardiovascular: Regular rate, Regular Rhythm, Normal S1, Normal S2 Abdomen: Bowel Sounds Present, Soft, Non Tender, Non-Distended, No Hepato-splenomegaly Extremities: No edema, Capillary Refill Less than 3 Seconds, IV access on right foot Skin: No rashes, - - IV on right foot Musculoskeletal: No Tenderness to Palpation of Joints or Extremities Lymphatic: No Cervical, Supraclavicular, or Inguinal Adenopathy Neurological: Cranial nerves II-XII grossly intact, Neuro grossly intact Psych/Mental Status: Normal Affect, Appropriate Vitals/I&O's: Vital Signs Temp Pulse Resp BP Pulse Ox 97.8 F 62 16 126/61 H 94 06/25/19 04:00 06/25/19 06:46 06/25/19 06:46 06/25/19 06:00 06/25/19 06:46 Oxygen Flow Rate (L/min) 25 Oxygen Delivery Method CPAP Weight: 75.9 kg Body Mass Index (BMI) 26.9 Intake and Output for Last 24 Hours 06/23/19 06/24/19 06/25/19 23:59 23:59 23:59 Intake Total 2026.06 / 2506.06 1240 / 1500 260 / 260 Output Total 1090 / 1640 2475 / 3675 1850 / 1850 Balance 936.06 / 866.06 -1235 / -2175 -1590 / -1590 Microbiology Past 72 Hours 06/21/19 01:45 Sputum, Expectorated/Coughed Gram Stain - Final 06/21/19 01:45 Sputum, Expectorated/Coughed Respiratory Culture - Final Gram positive moises 06/20/19 09:20 Blood Culture (Wb) - Anticubital Right Blood Culture - Preliminary No growth in 48 hours. 06/20/19 08:25 Blood Culture (Wb) - Left Wrist Blood Culture - Preliminary No growth in 48 hours. Laboratory Results 06/24/19 05:15: B-Natriuretic Peptide 1050.7 H 06/25/19 04:30: WBC 8.0, RBC 3.55 L, Hgb 11.5 L, Hct 34.7 L, MCV 97.7, MCH 32.4 H, MCHC 33.1, RDW Std Deviation 52.0 H, RDW Coeff of Ermelinda 14.6, Plt Count 196, MPV 10.1, Immature Gran % (Auto) 0.600, Neut % (Auto) 85.3 H, Lymph % (Auto) 7.5 L, [place] % (Auto) 6.5, Eos % (Auto) 0.0, Baso % (Auto) 0.1, Absolute Neuts (auto) 6.8, Absolute Lymphs (auto) 0.60 L, Nucleated RBC % 0, Differential Comment SCANNED 06/25/19 04:30: Sodium 141, Potassium 3.9, Chloride 103, Carbon Dioxide 35.0 H, Anion Gap 3 L, BUN 17, Creatinine 0.71, Estim Creat Clear Calc 48.30, Est GFR (MDRD) Af Amer 105, Est GFR (MDRD) Non-Af 87, BUN/Creatinine Ratio 24.0 H, Glucose 150 H, Calcium 8.2 L Current Medications Acetaminophen (Tylenol) 650 mg PO Q6H PRN PRN PRN Reason: Pain Score 1-3/Temp > 100.7 F Last Admin: 06/23/19 21:44 Dose: 650 mg Documented by: Al Hydroxide/Mg Hydroxide (Mylanta Ii) 30 ml PO Q6H PRN PRN PRN Reason: Gastric Burning Albuterol Sulfate (Ventolin Aerosols) 2.5 mg INHALATION Q2H PRN PRN PRN Reason: dyspnea, wheezing Last Admin: 06/23/19 20:53 Dose: 2.5 mg Documented by: Albuterol/Ipratropium (Duoneb) 3 ml INHALATION Q4H.RT [facility] Last Admin: 06/25/19 06:46 Dose: 3 ml Documented by: Aspirin (Aspirin, Baby) 81 mg PO DAILY@0800 [facility] Last Admin: 06/25/19 05:37 Dose: 81 mg Documented by: Benzonatate (Tessalon Perle) 100 mg PO Q4H PRN PRN PRN Reason: COUGH Last Admin: 06/24/19 09:41 Dose: 100 mg Documented by: Enoxaparin Sodium (Lovenox) 70 mg SC Q12@0600,1800 [facility] Last Admin: 06/24/19 20:19 Dose: Not Given Documented by: Glucagon () 1 mg IM .X1 PRN PRN Reason: Hypoglycemia Guaifenesin (Robitussin) 10 ml PO Q4H PRN PRN PRN Reason: COUGH Last Admin: 06/24/19 21:39 Dose: 10 ml Documented by: Hydralazine HCl (Apresoline Iv) 10 mg IV Q4H PRN PRN PRN Reason: SBP > 160 Sodium Chloride () 250 mls @ 15 mls/hr IV .[id number] PRN PRN Reason: Saline Flush Last Infusion: 06/22/19 19:00 Dose: Infused Documented by: Sodium Chloride () 250 mls @ 15 mls/hr IV .[id number] PRN PRN Reason: Additional IVPB Infusion Dextrose (Dextrose 10%-Water) 250 mls @ 999 mls/hr IV .Q16M PRN; Protocol PRN Reason: HYPOGLYCEMIA Sodium Chloride () 1,000 mls @ 15 mls/hr IV .Q48H [facility] Levothyroxine Sodium (Synthroid) 137 mcg PO DAILY@0600 [facility] Last Admin: 06/25/19 05:37 Dose: 137 mcg Documented by: Magnesium Hydroxide (Milk Of Magnesia) 30 ml PO DAILY PRN PRN PRN Reason: Constipation Methylprednisolone (Solu-Medrol) 40 mg IV Q12 [facility] Nicotine (Nicoderm Cq (Pbkc)) 7 mg TRANSDERM. DAILY [facility] Last Admin: 06/24/19 09:41 Dose: 7 mg Documented by: Nitroglycerin (Nitrostat) 0.4 mg SUBLINGUAL Q5M PRN PRN Reason: CARDIAC/CHEST PAIN Ondansetron HCl (Zofran) 4 mg IV Q8H PRN PRN PRN Reason: NAUSEA/VOMITING Prochlorperazine Edisylate (Compazine Iv) 5 mg IV Q4H PRN PRN PRN Reason: Breakthrough Nausea/Vomiting Sodium Chloride () 10 - 40 ml IV UD PRN PRN Reason: SALINE FLUSH Last Admin: 06/25/19 05:37 Dose: 20 ml Documented by: Tamoxifen Citrate (Nolvadex) 20 mg PO DAILY [facility] Last Admin: 06/24/19 09:41 Dose: 20 mg Documented by: Throat Lozenges (Cepacol Sore Throat Lozenge) 1 lozenge MUCOUS MEM Q2H PRN PRN PRN Reason: Sore Throat/Cough Last Admin: 06/25/19 04:49 Dose: 1 lozenge Documented by: STROKE Vital Signs/Narrative: Vital Signs Temp Pulse Resp BP Pulse Ox 06/25/19 06:46 60 16 94 06/25/19 06:00 58 L 23 H 126/61 H 94 06/25/19 05:00 62 23 H 110/62 94 06/25/19 04:00 97.8 F 62 25 H 122/70 H 93 Medical Necessity - Tobacco Use Smoking Status: Current every day smoker Tobacco Use: Cigarettes Assessment/Plan All Active Problems (Last Reviewed 06/20/19 @ 09:45 by Mike Pope MD) Encounter for insertion of venous access port (Resolved) Exertional dyspnea (Acute) Sore throat (Resolved) Perineal pain (Resolved) Diarrhea (Resolved) Nausea vomiting and diarrhea (Resolved) Large bowel obstruction (Resolved) Ileus (Resolved) Hypokalemia due to loss of potassium (Resolved) 73-year-old female with past medical history of right breast CA, chronic respiratory failure, on 2 L of oxygen, COPD/Langerhans cell histiocytosis who was transferred from [facility] with progressive shortness of breath. 1. Acute hypoxic respiratory failure, likely secondary to RSV related COPD exacerbation/Acute on chronic CHF s/p intubation extubated on 06/23/19 RSV positive on respiratory panel, negative chest x-ray, blood cultures are negative, urine Legionella and streptococcal antigen negative Improved, on 4L oxygen, will continue on IV steroids, breathing treatments, account general manager following 2. Acute systolic CHF, probable secondary to Takotsubo cardiomyopathy, EF 40% Given IV lasix today, Will continue with Lasix from tomorrow 3. Acute NSTEMI, CAD, s/p cardiac cath with stent to mid-LAD EKG appears the same Will continue on aspirin,Brilinta, will start on statin Cardiology following 4. Suspected Community-acquired pneumonia, ruled out with negative chest x-ray here MRSA screen is negative. Blood cultures negative, off antibiotics 5. Hypotension/shock, unclear etiology, probable cardiogenic, EF 40%, required use of Levophed Off Levophed, BP have improved, will continue to monitor pressures. 6. Right breast CA stage IIIb, follows in the outpatient with oncology, continue on Tamoxifen 7. Hypothyroidism, continue on Synthroid 8. Tobacco dependence, advised to quit 9. DVT prophylaxis - Will start Heparin SC for DVT PPx- from tomorrow 10. Code status: Full code Code Visit Inpatient E&M: 17220 Subs Hosp L2
--- NOTE | 2019-06-25 07:57 | CASEMGMT ---
RN CM Note. InNetwork tertiary facilities if transfer is recommended. Per [place] website [facility] insurance designation. [facility], [facility], [facility], [facility], [facility], [facility], [facility].
--- NOTE | 2019-06-25 08:09 | PN.CARD_ITS ---
Subjectve: Patient seen and evaluated Objective: Vital Signs Temp Pulse Resp BP Pulse Ox 97.8 F 62 16 126/61 H 94 06/25/19 04:00 06/25/19 06:46 06/25/19 06:46 06/25/19 06:00 06/25/19 06:46 Oxygen Flow Rate (L/min) 25 Oxygen Delivery Method CPAP Weight: 167 lb 5.294 oz Body Mass Index (BMI) 26.9 Intake and Output for Last 24 Hours 06/23/19 06/24/19 06/25/19 23:59 23:59 23:59 Intake Total 2026.06 / 2506.06 1240 / 1500 260 / 260 Output Total 1090 / 1640 2475 / 3675 1850 / 1850 Balance 936.06 / 866.06 -1235 / -2175 -1590 / -1590 General: Awake, Alert, Oriented x 3 HEENT: PERRL, EOMI, Sclera Non Icteric Neck: Supple, Good ROM, No Lymph Node Enlargement Lungs: Clear to auscultation Cardiovascular: Regular Rhythm, Normal S1, Normal S2, No Murmurs, No Rubs, No Gallops Vascular: No Carotid Bruits, Normal Femoral Pulses, Normal Radial Pulses, Normal Dorsalis Pedal Pulse, Normal Posterior Tibial Pulses Abdomen: Bowel Sounds Present, Soft, Non Tender, No HSM, No Organomegaly Extremities: No Cyanosis, No Clubbing, No edema Musculoskeletal: No Erythema Skin: No Rashes Lymphatic: No Lymph Node Enlargement Neurological: No Focal Motor or Sensory Deficit Psych/Mental Status: Appropriate 06/24/19 05:15: B-Natriuretic Peptide 1050.7 H 06/25/19 04:30: WBC 8.0, RBC 3.55 L, Hgb 11.5 L, Hct 34.7 L, MCV 97.7, MCH 32.4 H, MCHC 33.1, Plt Count 196, MPV 10.1, Immature Gran % (Auto) 0.600, Neut % (Auto) 85.3 H, Lymph % (Auto) 7.5 L, [place] % (Auto) 6.5, Eos % (Auto) 0.0, Baso % (Auto) 0.1, Absolute Neuts (auto) 6.8, Nucleated RBC % 0 06/25/19 04:30: Sodium 141, Potassium 3.9, Chloride 103, Carbon Dioxide 35.0 H, Anion Gap 3 L, BUN 17, Creatinine 0.71, Est GFR (MDRD) Af Amer 105, Est GFR (MDRD) Non-Af 87, BUN/Creatinine Ratio 24.0 H, Glucose 150 H, Calcium 8.2 L Rhythm: EKG: ECHO: Stress Test: Cardiac Cath: PCI: CT Surgery: Holter monitor: EPS: PPM: CXR: Chest CT Scan: Medical Necessity - Tobacco Use Smoking Status: Current every day smoker Tobacco Use: Cigarettes Assessment/Plan 1. Respiratory failure with abnormal cardiac enzymes * Patient presented with respiratory failure and was noted to have mildly abnormal cardiac enzymes and EKG changes suggestive of anterior ischemia. She underwent cardiac catheterization with demonstrated the following: Normal left main coronary artery. Left anterior descending artery with proximal 80% stenosis. Left circumflex artery with no significant stenosis. Dominant right coronary artery with no significant stenosis. Based on the above angiographic findings the patient would be scheduled to undergo angioplasty and stenting of the proximal left anterior descending artery. * Echocardiogram done demonstrates evidence of left ventricular systolic dysfunction with anterior apical hypokinesis and basal inferior and basal lateral and basal anterior hypokinesis. * * Would recommend starting low-dose beta-bebe and KRIS inhibitor as well as statin. * * Thank you for allowing me to participate in the care of your patient. Please don't hesitate to call if any issues arise
--- NOTE | 2019-06-25 08:37 | CL.D_ITS ---
Patient Name: NURYS DIAZ Study Date: 06/25/2019 Performing: Thomas Paz MD Ht: 66.14 inches 168 cm : 1945 Wt: 167.55 lbs 76 kg Age: 73 Gender: female BSA: 1.86 PROCEDURE(S) PERFORMED [id number] CLINICAL PROFILE AND INDICATIONS Indications: Suspected CAD Heart Failure: NYHA Class: 3, Newly Diagnosed: Yes Stress/Imaging Stress/Image Study Performed: No CONCLUSIONS Severe single-vessel coronary artery disease with proximal 80% LAD stenosis. Severe low ventricular systolic dysfunction involving the anterior wall apex and inferoapical wall. RECOMMENDATIONS Referred for immediate PCI DESCRIPTION OF PROCEDURE The patient arrived to the procedure lab. The risks and benefits of the procedure as well as a full d escription of our services here and current unavailability of surgical backup were fully explained to the patient and/or their significant other prior to the catheterization. The Timeout was completed, verifying the correct patient and procedure. The patient's procedural site was prepped and draped in the usual fashion. Local anesthetic was given subcutaneously to right groin region with Lidocaine 2%. Using a modified Seldinger technique, arterial access was obtained via the right femoral artery, a 5 Fr sheath was inserted. Left Coronary Artery selective angiography was performed in multiple views u sing a 5 Fr. JL4 catheter. Right Coronary Artery selective angiography was then performed in multiple views using a 5 Fr. 3DRC ([place]) catheter. CORONARY ANGIOGRAPHY DOMINANCE: Right Dominant LEFT HEART ASSESSMENT Left Ventricular Ejection Fraction: by Echo 20 % Anterior Hypokinesis - Severe Depressed Left Ventricular systolic function LEFT MAIN: Angiographically normal LEFT ANTERIOR DESCENDING ARTERY: PROX LAD: 80 % Stenosis CIRCUMFLEX ARTERY: No significant disease noted RIGHT CORONARY ARTERY: No significant disease noted COMPLICATIONS PROCEDURE MEDICATIONS Oxygen: 25 % FiO2 via high flow NC SUMMARY OF HEMODYNAMIC DATA Time AIR REST ECG 07:45:22 AO 93/68 (81) SA 07:55:56 AO 129/55 (83) 08:12:21 Signed By Thomas Paz MD On 06/25/2019 08:36:33 Thomas Paz MD
--- NOTE | 2019-06-25 09:30 | EKG12_ITS ---
Test Reason : Blood Pressure : / mmHG Vent. Rate : 068 BPM Atrial Rate : 068 BPM P-R Int : 122 ms QRS Dur : 076 ms QT Int : 470 ms P-R-T Axes : 081 085 213 degrees QTc Int : 499 ms Normal sinus rhythm ST & Marked T wave abnormality, consider anterolateral ischemia Prolonged QT Abnormal ECG When compared with ECG of 21-JUN-2019 08:23, MANUAL COMPARISON REQUIRED, DATA IS UNCONFIRMED Confirmed by MANSOOR SALDIVAR, ALBERTINA ([id number]), content editor AMANDA WADE ([id number]) on 06/25/2019 2:57:03 PM Referred By: Confirmed By:CHYNA MAX MD
--- NOTE | 2019-06-25 10:00 | EKG12_ITS ---
Test Reason : AM Blood Pressure : / mmHG Vent. Rate : 060 BPM Atrial Rate : 060 BPM P-R Int : 122 ms QRS Dur : 078 ms QT Int : 510 ms P-R-T Axes : 076 089 219 degrees QTc Int : 510 ms Sinus rhythm with Premature supraventricular complexes ST & Marked T wave abnormality, consider anterolateral ischemia Prolonged QT Abnormal ECG When compared with ECG of 25-JUN-2019 09:42, MANUAL COMPARISON REQUIRED, DATA IS UNCONFIRMED Confirmed by JAZMINE SALDIVAR, ELLIOT ([id number]), technical editor AMANDA WADE ([id number]) on 06/29/2019 12:24:25 PM Referred By: FAITH Confirmed By:ELLIOT LUCERO MD
--- NOTE | 2019-06-25 10:00 | CASEMGMT ---
RN CM Note. Anticipate pt will return home with [facility]. Will need oxygen testing and portability for home through [employer] if indicated. Green sheet with script on front of chart. Pt just returned from Heart Cath with stent. [employer] savings card on front of chart for pt to take to her pharmacy when filling prescriptions. Jerardo COSME RN ACM
[2019-06-25] MEDS: Furosemide 20 MG/2 ML VIAL IV ×2 (10:06→17:36)
[2019-06-25] MEDS: Tamoxifen 10 MG Tablet 20 MG PO (10:34)
[2019-06-25] MEDS: guaiFENesin 10 ML UDC (200MG/10ML) PO ×3 (10:34→22:06)
--- NOTE | 2019-06-25 11:04 | CRPHASE1_ITS ---
Patient Communication PHII Cardiac Rehab Discussed with Patient:: Yes Guide to Cardiac Rehab Given to Patient:: Yes Cardiac Rehab Facility Choice List Given to Patient:: Yes Choice Program [facility] CR PHII:: Communication Given to CR, Refer to [facility] [employer] Consultant:: Urmila Kiran Phase II Cardiac Rehab:: Yes Sessions:: 36 sessions - 3 days/wk, 12 weeks Risk Factors/Lifestyle Smoking Status: Current every day smoker Hx Hypertension: No Hx Metabolic Disorders: No Hx Dyslipidemia: Yes Hx Obesity: No Height: 5 ft 6 in - BMI 27.0 Post-Menopausal: Yes Stress: Home/Family Risk Factor for Sedentary Lifestyle: Moderate Risk Family History: Family History (Last Reviewed 06/20/19 @ 09:46 by Mike Pope MD) Brother Cancer Father Lung cancer Aunt Cancer Laboratory Values: Cardiac Rehab Phase I Labs Triglycerides 113 mg/dL (-199) 06/21/19 04:15 Cholesterol 194 mg/dL (200) 06/20/19 07:40 LDL Cholesterol 93 mg/dL (0-130) 06/20/19 07:40 HDL Cholesterol 87 mg/dL (40-) 06/20/19 07:40 Phase I Education Given On:: [place], Nutrition, Antiplatelet medication, Smoking cessation Issues Affecting Care:: None Knowledge of Condition:: Yes Learning Preferences: Verbal, Written Medical/Surgical History CA:: No Cancer:: Yes - BREAST Discharge/Home/Social Eval Discharge Disposition: Home Cardiac Rehabilitation Info Cardiac Rehabilitation Program Information: Cardiac Rehabilitation is important for patients like you who are recovering from a heart problem. Cardiac rehabilitation programs are recognized as integral to the continued care of the patient with coronary heart disease. The cardiac rehabilitation program is designed to optimize a patient's physical, psychological, and social functioning. Health rn progressive care unit work in cardiac rehabilitation programs and assist you with getting the treatments you need to get stronger and healthier - like exercise, healthy eating habits, and medications. Cardiac rehabilitation has been show to help people with heart problems live longer and have better life enjoyment than people who do not go to cardiac rehabilitation. Please contact the Cardiac Rehabilitation Program at [facility] at in two weeks if you have not heard from them.
--- NOTE | 2019-06-25 11:08 | CRPH1.INSTRU ---
General Education CAD and cardiac anatomy and function:: Patient communicates acknowledgment Explanation of diagnoses and procedures:: Patient communicates acknowledgment Sign/Symptoms of TX:: Patient communicates acknowledgment Antiplatelet therapy: Patient communicates acknowledgment Proper use of NTG-SL: Not instructed Emergency procedures and activation of EMS: Patient communicates acknowledgment Compliance of all prescribed medications: Patient communicates acknowledgment Smoking Patient Nicotine/Smoking Risk Factors Are:: Cigarettes Recommendations Include:: Participation in a smoking cessation program Nicotine/Smoking Response Code:: Patient communicates acknowledgment Dyslipidemia Patient Dyslipidemia Risk Factors Are:: Total Cholesterol, Triglycerides, HDL, LDL Recommendations Include:: Lipid profile provided, Reviewed NCEP/ATP guidelines, Therapeutic Lifestyle Change dietary guidelines Dyslipidemia Response Code:: Patient communicates acknowledgment Overweight/Obesity Patient Overweight/Obesity Risk Factors Are:: Overweight = 26-29 Hypertension Patient Hypertension Risk Factors Are:: No documented hx of HTN Heart Disease Heart Disease Response Code:: Patient communicates acknowledgment Diabetes Patient Diabetes Risk Factors Are:: Elevated blood sugars Recommendations Include:: Maintain fasting blood sugars 70-110 md/dL, Maintain HgbA1c of 6% or less, Monitor blood sugar as prescribed, Diabetic dietary guidelines, Decrease/maintain body weight Diabetes:: Patient communicates acknowledgment Metabolic Syndrome Patient Metabolic Syndrome Risk Factors Are [3 of 5]:: Fasting blood sugar > 100 mg/dL Recommendations Include:: Does not meet criteria Metabolic Syndrome Response Code:: Patient communicates acknowledgment Sedentary Patient Sedentary Risk Factors Are:: Lack of regular exercise Recommendations Include:: Aerobic exercise 5-7 times/week for 20-30 minutes continuously, Benefits of regular exercise, Discussed home walking program, Monitored Outpatient Cardiac Rehab Sedentary Response Code:: Patient communicates acknowledgment Stress Recommendations Include:: Identification of stressors, and assessment of coping skills, Stress management techniques Stress Response Code:: Patient communicates acknowledgment
--- NOTE | 2019-06-25 12:28 | CL.I_ITS ---
Patient Name: NURYS DIAZ Study Date: 06/25/2019 Performing: Jen Kiran MD Ht: 66.14 inches 168 cm : 1945 Wt: 167.55 lbs 76 kg Age: 73 Gender: female BSA: 1.86 PROCEDURE(S) PERFORMED [id number] W OR WO PTCA, SINGLE CORONARY ARTERY CLINICAL PROFILE AND CO-MORBIDITIES Indications: Suspected CAD Heart Failure: NYHA Class: 3, Newly Diagnosed: Yes Stress/Imaging Stress/Image Study Performed: No CONCLUSIONS Successful ANUP to pLAD RECOMMENDATIONS ASA Indefinitley Brilinta for at least 12 months Follow up with primary certified anesthesiologist assistant DESCRIPTION OF PROCEDURE The patient arrived to the procedure lab. The risks and benefits of the procedure as well as a full d escription of our services here and current unavailability of surgical backup were fully explained to the patient and/or their significant other prior to the catheterization. The Timeout was completed, verifying the correct patient and procedure. The patient's procedural site was prepped and draped in the usual fashion. Local anesthetic was given subcutaneously to right groin region with Lidocaine 2% Using a modified Seldinger technique,arterial access was obtained via the right femoral artery, a 5Fr sheath was inserted. Left Coronary Artery selective angiography was performed in multiple views usin g a 5 Fr. JL4 catheter. Right Coronary Artery selective angiography was then performed in multiple vi ews using a 5 Fr. 3DRC (Pablito) catheter.The images were reviewed and options discussed. A decision was then made to proceed with an Intervention, IVUS or other adjunct procedure. Arterial sheath was exchanged for a 6 Fr Sheath. XB 3.5 Guide catheter was inserted and engaged i nto the LCA. BMW Guide wire was advanced to the LAD. Angiogram performed pre stent deployment. Synerg y 3.00x16 Drug Eluting stent was inserted. Angiogram performed post stent deployment. Contrast was in jected through the sheath and the Right Iliac and Femoral artery were assessed for possible closure d evice. The arterial sheath was pulled and a Perclose closure device was deployed for hemostasis INTERVENTION INFORMATION LESION SITE: LAD (Proximal) Lesion Complexity: High/C, chronic total occlusion: No, lesion at bifurcation: No, thrombus present: No, lesion length: 14 mm, culprit lesion: Yes, Previously treated lesion: No Pre Stenosis: 80 % Pre intervention ROSA flow: 3 PROCEDURE: Drug Eluting Stent Post Stenosis: 0 % Post intervention ROSA flow: 3 COMPLICATIONS No Complications PROCEDURE MEDICATIONS Oxygen: 25 % FiO2 via high flow NC-Airvo Brilinta 180 mg PO @ 06/25/2019 09:20:37 Heparin 5000 unit(s) IV 06/25/2019 08:55:42 SUMMARY OF HEMODYNAMIC DATA Time AIR REST ECG 07:45:22 AO 93/68 (81) SA 07:55:56 AO 129/55 (83) 08:12:21 Signed By Jen Kiran MD On 06/25/2019 12:27:24 Jen Kiran MD
[2019-06-25] MEDS: TICAGRELOR 90 MG TABLET PO (21:56)
[2019-06-25] MEDS: Atorvastatin Calcium 40 MG Tablet PO (21:57)
[2019-06-25] MEDS: Acetaminophen 325 MG Tablet 650 MG PO (22:02)
[2019-06-26] VITALS (26 sets, daily range): BP systolic 92–121; BP diastolic 54–90; PULSE 61–81; RESP 16–24; TEMP 36.3–37.4; O2SAT 90–98
[2019-06-26] MEDS: Ipratropium/Albuterol Sulfate 3 ML AMPUL.NEB INHALATION ×5 (03:11→23:16)
[2019-06-26 04:30] LABS: Hematocrit 37.5 % (37-47); Hemoglobin 12.5 g/dL (12.0-15.0); Mean Corp Hgb Conc 33.3 g/dL (32-36); Mean Corpuscular Hgb 32.3 pg (27.0-32.0); Mean Corpuscular Volume 96.9 fL (81-99); Mean Platelet Vol. 10.5 fl (6.2-12.0); Platelet Count 210 K/mm3 (150-450); RBC Distribution Width CV 14.8 % (11.6-14.6); RBC Distribution Width SD 52.2 fl (35.1-43.9); Red Blood Count 3.87 M/mm3 (4.2-5.4); White Blood Count 9.5 K/mm3 (4.4-11.0)
[2019-06-26 04:50] LABS: ALB/GLOB Ratio 0.9 RATIO (0.9-2.4); AST(SGOT) 16 U/L (15-37); Alanine Aminotransfer ALT/SGPT 50 U/L (13-56); Albumin, Serum 3.1 g/dL (3.2-5.0); Alkaline Phosphatase 52 U/L (45-117); Anion Gap 4 (5-15); BUN 20 mg/dL (7-18); BUN/Creat Ratio 24.8 RATIO (10-20); Calcium,Total 8.2 mg/dL (8.5-10.1); Chloride 99 mmol/L (98-107); Creatinine, Serum 0.81 mg/dL (0.55-1.02); EST Glomerular Filtration Rate 74 mL/min (>60); Est Glom Filt Rate - Afr Amer 90 mL/min (>60); Estimated Creatinine Clearance 59.64 ml/min; Globulin 3.3 g/dL (2.2-4.2); Glucose 203 mg/dL (74-106); Potassium 3.9 mmol/L (3.5-5.1); Protein, Total 6.4 g/dL (6.4-8.2); Sodium Level 138 mmol/L (136-145)
[2019-06-26] MEDS: Levothyroxine 137 MCG Tablet PO (06:07)
--- NOTE | 2019-06-26 06:50 | PN_ITS ---
Subjective: Patient did well overnight. No acute issues were reported outside of some desaturations with sleep. Patient does report that she normally wears 2 L nasal cannula with sleep at home. Patient had a heart catheterization yesterday showing a significant LAD lesion requiring intervention. No bleeding complications have been reported. Patient did receive Lasix yesterday afternoon after recovery from the heart catheterization. Patient continues to have a cough that is nonproductive and has not changed in character or frequency. General: Alert, Oriented x3, Cooperative, No apparent distress, Well developed, Well nourished, - - No conversational dyspnea. HEENT: Atraumatic, PERRLA, EOMI, Normocephalic, - - No scleral icterus or injection noted Oral: Moist Mucosa, No Gingival or Mucosal Lesions/ Ulcerations Neck: Supple, No JVD, No Nodes, Trachea Midline Lungs: No rhonchi, No wheeze, No rales, Diminished, - - Symmetric expansion. No dullness to percussion. Cardiovascular: Normal S1, Normal S2, No murmurs, Irregular Rate, No rub noted, No Gallop Abdomen: Bowel Sounds Present, Soft, Non Tender, Non-Distended Extremities: No clubbing, No cyanosis, Edema Skin: No rashes, No breakdown Musculoskeletal: No Tenderness to Palpation of Joints or Extremities Lymphatic: No Cervical, Supraclavicular, or Inguinal Adenopathy Neurological: Cranial nerves II-XII grossly intact, Neuro grossly intact, Motor Exam 5/5 strength throughout Psych/Mental Status: Alert and oriented to time, place, person, mood and affect Vital Signs Temp Pulse Resp BP Pulse Ox 36.7 C 64 19 H 113/65 95 06/26/19 00:00 06/26/19 06:39 06/26/19 06:39 06/26/19 05:00 06/26/19 06:39 Oxygen Flow Rate (L/min) 2 Oxygen Delivery Method Nasal Cannula Weight: 75.9 kg Body Mass Index (BMI) 26.9 Intake and Output for Last 24 Hours 06/24/19 06/25/19 06/26/19 23:59 23:59 23:59 Intake Total 1240 / 1500 877.55 / 1117.55 360 / 360 Output Total 2475 / 3675 5250 / 5950 1050 / 1050 Balance -1235 / -2175 -4372.45 / -4832.45 -690 / -690 Labs (Last 48 Hours) 06/24/19 06/25/19 06/25/19 05:15 04:30 04:30 WBC 8.0 RBC 3.55 L Hgb 11.5 L Hct 34.7 L MCV 97.7 MCH 32.4 H MCHC 33.1 RDW Std Deviation 52.0 H RDW Coeff of Ermelinda 14.6 Plt Count 196 MPV 10.1 Immature Gran % (Auto) 0.600 Neut % (Auto) 85.3 H Lymph % (Auto) 7.5 L [place] % (Auto) 6.5 Eos % (Auto) 0.0 Baso % (Auto) 0.1 Absolute Neuts (auto) 6.8 Absolute Lymphs (auto) 0.60 L Nucleated RBC % 0 Differential Comment SCANNED Sodium 141 Potassium 3.9 Chloride 103 Carbon Dioxide 35.0 H Anion Gap 3 L BUN 17 Creatinine 0.71 Estim Creat Clear Calc 48.30 Est GFR (MDRD) Af Amer 105 Est GFR (MDRD) Non-Af 87 BUN/Creatinine Ratio 24.0 H Glucose 150 H Calcium 8.2 L Total Bilirubin AST ALT Alkaline Phosphatase B-Natriuretic Peptide 1050.7 H Total Protein Albumin Globulin Albumin/Globulin Ratio 06/26/19 06/26/19 04:15 04:15 WBC 9.5 RBC 3.87 L Hgb 12.5 Hct 37.5 MCV 96.9 MCH 32.3 H MCHC 33.3 RDW Std Deviation 52.2 H RDW Coeff of Ermelinda 14.8 H Plt Count 210 MPV 10.5 Immature Gran % (Auto) Neut % (Auto) Lymph % (Auto) [place] % (Auto) Eos % (Auto) Baso % (Auto) Absolute Neuts (auto) Absolute Lymphs (auto) Nucleated RBC % Differential Comment Sodium 138 Potassium 3.9 Chloride 99 Carbon Dioxide 35.0 H Anion Gap 4 L BUN 20 H Creatinine 0.81 Estim Creat Clear Calc 59.64 Est GFR (MDRD) Af Amer 90 Est GFR (MDRD) Non-Af 74 BUN/Creatinine Ratio 24.8 H Glucose 203 H Calcium 8.2 L Total Bilirubin 0.60 AST 16 ALT 50 Alkaline Phosphatase 52 B-Natriuretic Peptide Total Protein 6.4 Albumin 3.1 L Globulin 3.3 Albumin/Globulin Ratio 0.9 Microbiology 06/20/19 08:25 Blood Culture (Wb) - Left Wrist Blood Culture - Final No growth in 5 days. 06/20/19 09:20 Blood Culture (Wb) - Anticubital Right Blood Culture - Final No growth in 5 days. Medical Necessity - Tobacco Use Smoking Status: Current every day smoker Tobacco Use: Cigarettes Assessment/Plan All Active Problems (Last Updated 06/25/19 @ 19:03 by Rochelle Cervantes) Acute hypoxemic respiratory failure (Acute 06/20/19) History of non-ST elevation myocardial infarction (NSTEMI) (Acute 06/20/19) Acute systolic (congestive) heart failure (Acute) Ischemic cardiomyopathy (Acute) History of coronary artery stent placement (Acute) Chemotherapy-induced nausea (Resolved) Diarrhea (Resolved) Exertional dyspnea (Resolved) Nausea vomiting and diarrhea (Resolved) Perineal pain (Resolved) Sore throat (Resolved) RECOMMENDATIONS: 1. Discontinue Airvo. Wean FiO2 to maintain oxygen saturations at or above 90%. 2. Continue scheduled bronchodilators. Transition to p.o. steroids and wean over 12 to 14 days 3. Diuresis per cardiology 4. Increase activity as tolerated 5. Okay to leave the intensive care unit from my perspective IMPRESSIONS: 1. Acute hypoxemic and hypercarbic respiratory failure secondary to COPD exacerbation secondary to RSV Extent of respiratory insult is unclear at this time. 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 Cultures have been relatively unremarkable. Patient is currently off of antibiotics and doing well. Patient may have a residual cough related to RSV. Patient also has an element of acute systolic congestive heart failure secondary to LAD lesion that has had a stent placed. Patient okay to leave the intensive care unit from my perspective. Likely okay to leave the intensive care unit. 2. Personal history of stage IIb right breast cancer The patient is currently followed by Dr. Hoyt of oncology and is currently being maintained on adjuvant tamoxifen therapy. 3. 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 Continue Synthroid. Nicotine replacement therapy can be offered to the patient while admitted to the hospital. The patient wishes to remain DNR Comfort Care arrest with intubation at this time. Patient did have a heart stent placed, so decrease in EF likely not secondary to Takotsubu. Defer to cardiology on repeat echocardiogram Code Visit Inpatient E&M: 82359 Subs Hosp L3
--- NOTE | 2019-06-26 07:26 | PN_ITS ---
Patient Problems: Active and Suspected Problems (Last Updated 06/25/19 @ 19:03 by Rochelle Cervantes) Acute hypoxemic respiratory failure (Acute 06/20/19) History of non-ST elevation myocardial infarction (NSTEMI) (Acute 06/20/19) Acute systolic (congestive) heart failure (Acute) Ischemic cardiomyopathy (Acute) History of coronary artery stent placement (Acute) QDI-NAI-Qbei LAD w/ 3.0 x 16 mm Synergy Stent Reason for Visit: Follow-up on resp failure Subjective: Patient was seen and examined. She feels improved. On NC 1.5L oxygen. Denies fever, chills, chest pain. She had an episode of questionable urine retention but was able to void. EKG appears unchanged. Objective: Physical exam: General: Alert, Cooperative, extubated, on Airvo HEENT: Atraumatic, PERRLA, EOMI, Normocephalic Oral: Moist Mucosa Neck: Supple Lungs: Diminished, Wheezes - ++ Cardiovascular: Regular rate, Regular Rhythm, Normal S1, Normal S2 Abdomen: Bowel Sounds Present, Soft, Non Tender, Non-Distended, No Hepato- splenomegaly Extremities: No edema, Capillary Refill Less than 3 Seconds, IV access on right foot Skin: No rashes, - - IV on right foot Musculoskeletal: No Tenderness to Palpation of Joints or Extremities Lymphatic: No Cervical, Supraclavicular, or Inguinal Adenopathy Neurological: Cranial nerves II-XII grossly intact, Neuro grossly intact Psych/Mental Status: Normal Affect, Appropriate Vitals/I&O's: Vital Signs Temp Pulse Resp BP Pulse Ox 98.1 F 64 19 H 102/61 92 06/26/19 00:00 06/26/19 07:00 06/26/19 07:00 06/26/19 07:00 06/26/19 07:00 Oxygen Flow Rate (L/min) 1.5 Oxygen Delivery Method Nasal Cannula Weight: 71.3 kg Body Mass Index (BMI) 26.9 Intake and Output for Last 24 Hours 06/24/19 06/25/19 06/26/19 23:59 23:59 23:59 Intake Total 1240 / 1500 877.55 / 1117.55 360 / 360 Output Total 2475 / 3675 5250 / 5950 1050 / 1050 Balance -1235 / -2175 -4372.45 / -4832.45 -690 / -690 Microbiology Past 72 Hours 06/20/19 08:25 Blood Culture (Wb) - Left Wrist Blood Culture - Final No growth in 5 days. 06/20/19 09:20 Blood Culture (Wb) - Anticubital Right Blood Culture - Final No growth in 5 days. 06/21/19 01:45 Sputum, Expectorated/Coughed Gram Stain - Final 06/21/19 01:45 Sputum, Expectorated/Coughed Respiratory Culture - Final Gram positive moises Laboratory Results 06/26/19 04:15: WBC 9.5, RBC 3.87 L, Hgb 12.5, Hct 37.5, MCV 96.9, MCH 32.3 H, MCHC 33.3, RDW Std Deviation 52.2 H, RDW Coeff of Ermelinda 14.8 H, Plt Count 210, MPV 10.5 06/26/19 04:15: Sodium 138, Potassium 3.9, Chloride 99, Carbon Dioxide 35.0 H, Anion Gap 4 L, BUN 20 H, Creatinine 0.81, Estim Creat Clear Calc 59.64, Est GFR (MDRD) Af Amer 90, Est GFR (MDRD) Non-Af 74, BUN/Creatinine Ratio 24.8 H, Glucose 203 H, Calcium 8.2 L, Total Bilirubin 0.60, AST 16, ALT 50, Alkaline Phosphatase 52, Total Protein 6.4, Albumin 3.1 L, Globulin 3.3, Albumin/Globulin Ratio 0.9 Current Medications Acetaminophen (Tylenol) 650 mg PO Q6H PRN PRN PRN Reason: Pain Score 1-3/Temp > 100.7 F Last Admin: 06/25/19 22:02 Dose: 650 mg Documented by: Al Hydroxide/Mg Hydroxide (Mylanta Ii) 30 ml PO Q6H PRN PRN PRN Reason: Gastric Burning Albuterol Sulfate (Ventolin Aerosols) 2.5 mg INHALATION Q2H PRN PRN PRN Reason: dyspnea, wheezing Last Admin: 06/23/19 20:53 Dose: 2.5 mg Documented by: Albuterol/Ipratropium (Duoneb) 3 ml INHALATION Q4H.RT [facility] Last Admin: 06/26/19 06:39 Dose: 3 ml Documented by: Aspirin (Aspirin, Baby) 81 mg PO DAILY@0800 [facility] Last Admin: 06/25/19 05:37 Dose: 81 mg Documented by: Atorvastatin Calcium (Lipitor) 40 mg PO QHS [facility] Last Admin: 06/25/19 21:57 Dose: 40 mg Documented by: Atropine Sulfate () 0.5 mg IV UD PRN PRN Reason: HR <50 bpm Benzonatate (Tessalon Perle) 100 mg PO Q4H PRN PRN PRN Reason: COUGH Last Admin: 06/24/19 09:41 Dose: 100 mg Documented by: Furosemide (Lasix) 20 mg IV BID@1000,1800 [facility] Last Admin: 06/25/19 17:36 Dose: 20 mg Documented by: Glucagon () 1 mg IM .X1 PRN PRN Reason: Hypoglycemia Guaifenesin (Robitussin) 10 ml PO Q4H PRN PRN PRN Reason: COUGH Last Admin: 06/25/19 22:06 Dose: 10 ml Documented by: Hydralazine HCl (Apresoline Iv) 10 mg IV Q4H PRN PRN PRN Reason: SBP > 160 Sodium Chloride () 250 mls @ 15 mls/hr IV .[id number] PRN PRN Reason: Saline Flush Last Infusion: 06/22/19 19:00 Dose: Infused Documented by: Dextrose (Dextrose 10%-Water) 250 mls @ 999 mls/hr IV .Q16M PRN; Protocol PRN Reason: HYPOGLYCEMIA Sodium Chloride () 1,000 mls @ 15 mls/hr IV .Q48H [facility] Last Admin: 06/25/19 09:57 Dose: Not Given Documented by: Levothyroxine Sodium (Synthroid) 137 mcg PO DAILY@0600 [facility] Last Admin: 06/26/19 06:07 Dose: 137 mcg Documented by: Magnesium Hydroxide (Milk Of Magnesia) 30 ml PO DAILY PRN PRN PRN Reason: Constipation Methylprednisolone (Solu-Medrol) 40 mg IV Q12 [facility] Last Admin: 06/25/19 21:56 Dose: 40 mg Documented by: Nicotine (Nicoderm Cq (Pbkc)) 7 mg TRANSDERM. DAILY [facility] Last Admin: 06/25/19 10:35 Dose: 7 mg Documented by: Nitroglycerin (Nitrostat) 0.4 mg SUBLINGUAL Q5M PRN PRN Reason: CARDIAC/CHEST PAIN Ondansetron HCl (Zofran) 4 mg IV Q8H PRN PRN PRN Reason: NAUSEA/VOMITING Prochlorperazine Edisylate (Compazine Iv) 5 mg IV Q4H PRN PRN PRN Reason: Breakthrough Nausea/Vomiting Sodium Chloride () 10 - 40 ml IV UD PRN PRN Reason: SALINE FLUSH Last Admin: 06/25/19 05:37 Dose: 20 ml Documented by: Tamoxifen Citrate (Nolvadex) 20 mg PO DAILY [facility] Last Admin: 06/25/19 10:34 Dose: 20 mg Documented by: Throat Lozenges (Cepacol Sore Throat Lozenge) 1 lozenge MUCOUS MEM Q2H PRN PRN PRN Reason: Sore Throat/Cough Last Admin: 06/25/19 10:34 Dose: 1 lozenge Documented by: Ticagrelor (Brilinta) 90 mg PO BID [facility] Last Admin: 06/25/19 21:56 Dose: 90 mg Documented by: STROKE Vital Signs/Narrative: Vital Signs Pulse Resp BP Pulse Ox 06/26/19 07:00 64 19 H 102/61 92 06/26/19 06:39 64 19 H 95 06/26/19 06:00 73 22 H 112/67 96 06/26/19 05:00 63 21 H 113/65 98 06/26/19 04:00 64 22 H 121/72 H 97 Medical Necessity - Tobacco Use Smoking Status: Current every day smoker Tobacco Use: Cigarettes Assessment/Plan All Active Problems (Last Updated 06/25/19 @ 19:03 by Rochelle Cervantes) Acute hypoxemic respiratory failure (Acute 06/20/19) History of non-ST elevation myocardial infarction (NSTEMI) (Acute 06/20/19) Acute systolic (congestive) heart failure (Acute) Ischemic cardiomyopathy (Acute) History of coronary artery stent placement (Acute) Chemotherapy-induced nausea (Resolved) Diarrhea (Resolved) Exertional dyspnea (Resolved) Nausea vomiting and diarrhea (Resolved) Perineal pain (Resolved) Sore throat (Resolved) 73-year-old female with past medical history of right breast CA, chronic respiratory failure, on 2 L of oxygen, COPD/Langerhans cell histiocytosis who was transferred from [facility] with progressive shortness of breath. 1. 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 Acute systolic CHF, probable secondary to Takotsubo cardiomyopathy, EF 40% Will continue with oral Lasix 40mg daily 3. Acute NSTEMI, CAD, s/p cardiac cath with stent to mid-LAD EKG appears the same Will continue on aspirin,Brilinta, will start on statin Cardiology following 4. Suspected Community-acquired pneumonia, ruled out with negative chest x-ray here MRSA screen is negative. Blood cultures negative, off antibiotics 5. Hypotension/shock, unclear etiology, probable cardiogenic, EF 40%, required use of Levophed Off Levophed, BP have improved, will continue to monitor pressures. 6. Right breast CA stage IIIb, follows in the outpatient with oncology, continue on Tamoxifen 7. Hypothyroidism, continue on Synthroid 8. Tobacco dependence, advised to quit 9. DVT prophylaxis - Heparin SC 10. Code status: Full code Code Visit Inpatient E&M: 31382 Subs Hosp L2
[2019-06-26] MEDS: Aspirin 81 MG TAB.CHEW PO (08:22)
--- NOTE | 2019-06-26 09:04 | PN.CARD_ITS ---
Subjectve: Patient seen and evaluated. Appears to doing much better this morning. Sitting in chair. Objective: Vital Signs Temp Pulse Resp BP Pulse Ox 97.4 F L 67 16 93/57 L 95 06/26/19 08:00 06/26/19 08:00 06/26/19 08:00 06/26/19 08:00 06/26/19 08:00 Oxygen Flow Rate (L/min) 1.5 Oxygen Delivery Method Nasal Cannula Weight: 157 lb 3.033 oz Body Mass Index (BMI) 26.9 Intake and Output for Last 24 Hours 06/24/19 06/25/19 06/26/19 23:59 23:59 23:59 Intake Total 1240 / 1500 877.55 / 1117.55 360 / 360 Output Total 2475 / 3675 5250 / 5950 1185 / 1185 Balance -1235 / -2175 -4372.45 / -4832.45 -825 / -825 General: Awake, Alert, Oriented x 3 HEENT: PERRL, EOMI, Sclera Non Icteric Neck: Supple, Good ROM, No Lymph Node Enlargement Lungs: Clear to auscultation Cardiovascular: Regular Rhythm, Normal S1, Normal S2, No Murmurs, No Rubs, No Gallops Vascular: No Carotid Bruits, Normal Femoral Pulses, Normal Radial Pulses, Normal Dorsalis Pedal Pulse, Normal Posterior Tibial Pulses Abdomen: Bowel Sounds Present, Soft, Non Tender, No HSM, No Organomegaly Extremities: No Cyanosis, No Clubbing, No edema Musculoskeletal: No Erythema Skin: No Rashes Lymphatic: No Lymph Node Enlargement Neurological: No Focal Motor or Sensory Deficit Psych/Mental Status: Appropriate 06/26/19 04:15: WBC 9.5, RBC 3.87 L, Hgb 12.5, Hct 37.5, MCV 96.9, MCH 32.3 H, MCHC 33.3, Plt Count 210, MPV 10.5 06/26/19 04:15: Sodium 138, Potassium 3.9, Chloride 99, Carbon Dioxide 35.0 H, Anion Gap 4 L, BUN 20 H, Creatinine 0.81, Est GFR (MDRD) Af Amer 90, Est GFR (MDRD) Non-Af 74, BUN/Creatinine Ratio 24.8 H, Glucose 203 H, Calcium 8.2 L, Total Bilirubin 0.60 Rhythm: EKG: ECHO: Stress Test: Cardiac Cath: PCI: CT Surgery: Holter monitor: EPS: PPM: CXR: Chest CT Scan: Medical Necessity - Tobacco Use Smoking Status: Current every day smoker Tobacco Use: Cigarettes Assessment/Plan 1. Respiratory failure with abnormal cardiac enzymes * Patient presented with respiratory failure and was noted to have mildly abnormal cardiac enzymes and EKG changes suggestive of anterior ischemia. She underwent cardiac catheterization with demonstrated the following: Normal left main coronary artery. Left anterior descending artery with proximal 80% stenosis. Left circumflex artery with no significant stenosis. Dominant right coronary artery with no significant stenosis. Based on the above angiographic findings the patient had angioplasty and stenting of the proximal left anterior descending artery. * Echocardiogram done demonstrates evidence of left ventricular systolic dys function with anterior apical hypokinesis and basal inferior and basal lateral and basal anterior hypokinesis. * * Would recommend starting low-dose beta-bebe and KRIS inhibitor as well as statin. * Will recommend transferring to the progressive care unit will also recommend low-dose Lasix * Thank you for allowing me to participate in the care of your patient. Please don't hesitate to call if any issues arise
[2019-06-26] MEDS: Tamoxifen 10 MG Tablet 20 MG PO (09:27)
[2019-06-26] MEDS: TICAGRELOR 90 MG TABLET PO ×2 (09:27→21:40)
[2019-06-26] MEDS: Furosemide 40 MG Tablet PO (09:27)
[2019-06-26] MEDS: predniSONE 20 MG Tablet 40 MG PO (09:27)
--- NOTE | 2019-06-26 10:00 | EKG12_ITS ---
Test Reason : POST CATH Blood Pressure : / mmHG Vent. Rate : 055 BPM Atrial Rate : 055 BPM P-R Int : 122 ms QRS Dur : 078 ms QT Int : 486 ms P-R-T Axes : 079 083 213 degrees QTc Int : [address] & Marked T wave abnormality, consider anterolateral ischemia Abnormal ECG When compared with ECG of 25-JUN-2019 05:36, MANUAL COMPARISON REQUIRED, DATA IS UNCONFIRMED Confirmed by JAZMINE SALDIVAR, ELLIOT ([id number]), publication editor AMANDA WADE ([id number]) on 06/29/2019 12:25:39 PM Referred By: JAZMINE Confirmed By:ELLIOT LUCERO MD
[2019-06-26] MEDS: Heparin Injection (Vial) 5,000 UNIT/ML VIAL 5000 UNIT SC ×2 (13:52→21:42)
--- NOTE | 2019-06-26 16:44 | NURSING ---
Assumed care of patient at this time.
--- NOTE | 2019-06-26 18:17 | NURSING ---
Reviewed and agreed on all charting with Srikanth Delgado RN
[2019-06-26] MEDS: Atorvastatin Calcium 40 MG Tablet PO (21:40)
--- NOTE | 2019-06-26 22:01 | NURSING ---
Verbal report given to Vanesa Arzola RN. She will resume care of patient at this time.
[2019-06-27] VITALS (15 sets, daily range): BP systolic 91–118; BP diastolic 52–67; PULSE 59–84; RESP 16–20; TEMP 36.3–37.2; O2SAT 88–96
[2019-06-27] MEDS: Ipratropium/Albuterol Sulfate 3 ML AMPUL.NEB INHALATION ×5 (03:49→19:05)
[2019-06-27] MEDS: Levothyroxine 137 MCG Tablet PO (05:21)
[2019-06-27] MEDS: Heparin Injection (Vial) 5,000 UNIT/ML VIAL 5000 UNIT SC ×3 (05:22→21:13)
--- NOTE | 2019-06-27 08:39 | CPS ---
PT PLACED ON 2 LPM...96%
--- NOTE | 2019-06-27 08:58 | PCM.PN.INT ---
Subjective: Patient transferred out of the intensive care unit yesterday. Patient continues to require supplemental oxygen, but feels her breathing is improved. Patient continues to have a cough that is dry, but frequency is improving. Patient denies any chest pain. General: Alert, Oriented x3, Cooperative, No apparent distress, Well developed, Well nourished, - - No conversational dyspnea. HEENT: Atraumatic, PERRLA, EOMI, Normocephalic, - - No scleral icterus or injection noted Oral: Moist Mucosa, No Gingival or Mucosal Lesions/ Ulcerations Neck: Supple, No JVD, No Nodes, Trachea Midline Lungs: No rhonchi, No rales, Diminished, Wheezes - At end exhalation Cardiovascular: Normal S1, Normal S2, No murmurs, Irregular Rate, No rub noted, No Gallop Abdomen: Bowel Sounds Present, Soft, Non Tender, Non-Distended Extremities: No clubbing, No cyanosis, No edema, Capillary Refill Less than 3 Seconds Skin: No rashes, No breakdown Musculoskeletal: No Tenderness to Palpation of Joints or Extremities Lymphatic: No Cervical, Supraclavicular, or Inguinal Adenopathy Neurological: Cranial nerves II-XII grossly intact, Neuro grossly intact, Motor Exam 5/5 strength throughout Psych/Mental Status: Alert and oriented to time, place, person, mood and affect Vital Signs Temp Pulse Resp BP Pulse Ox 37.2 C 73 18 99/52 L 96 06/27/19 08:40 06/27/19 08:40 06/27/19 08:40 06/27/19 08:40 06/27/19 08:40 Oxygen Flow Rate (L/min) 1 Oxygen Delivery Method Nasal Cannula Weight: 73.8 kg Body Mass Index (BMI) 26.9 Intake and Output for Last 24 Hours 06/25/19 06/26/19 06/27/19 23:59 23:59 23:59 Intake Total 877.55 / 1117.55 810 / 810 Output Total 5250 / 5950 1185 / 1185 200 / 200 Balance -4372.45 / -4832.45 -375 / -375 -200 / -200 Labs (Last 48 Hours) 06/26/19 06/26/19 04:15 04:15 WBC 9.5 RBC 3.87 L Hgb 12.5 Hct 37.5 MCV 96.9 MCH 32.3 H MCHC 33.3 RDW Std Deviation 52.2 H RDW Coeff of Ermelinda 14.8 H Plt Count 210 MPV 10.5 Sodium 138 Potassium 3.9 Chloride 99 Carbon Dioxide 35.0 H Anion Gap 4 L BUN 20 H Creatinine 0.81 Estim Creat Clear Calc 59.64 Est GFR (MDRD) Af Amer 90 Est GFR (MDRD) Non-Af 74 BUN/Creatinine Ratio 24.8 H Glucose 203 H Calcium 8.2 L Total Bilirubin 0.60 AST 16 ALT 50 Alkaline Phosphatase 52 Total Protein 6.4 Albumin 3.1 L Globulin 3.3 Albumin/Globulin Ratio 0.9 Microbiology 06/20/19 08:25 Blood Culture (Wb) - Left Wrist Blood Culture - Final No growth in 5 days. 06/20/19 09:20 Blood Culture (Wb) - Anticubital Right Blood Culture - Final No growth in 5 days. Medical Necessity - Tobacco Use Smoking Status: Current every day smoker Tobacco Use: Cigarettes Assessment/Plan All Active Problems (Last Updated 06/25/19 @ 19:03 by Rochelle Cervantes) Acute hypoxemic respiratory failure (Acute 06/20/19) History of non-ST elevation myocardial infarction (NSTEMI) (Acute 06/20/19) Acute systolic (congestive) heart failure (Acute) Ischemic cardiomyopathy (Acute) History of coronary artery stent placement (Acute) Chemotherapy-induced nausea (Resolved) Diarrhea (Resolved) Exertional dyspnea (Resolved) Nausea vomiting and diarrhea (Resolved) Perineal pain (Resolved) Sore throat (Resolved) RECOMMENDATIONS: 1. Walking oximetry prior to discharge. Wean FiO2 to maintain oxygen saturations at or above 90%. 2. Continue scheduled bronchodilators. Wean p.o. steroids over 12 to 14 days 3. Diuresis per cardiology 4. Increase activity as tolerated 5. Outpatient complete PFT for quantification and clarification of lung function. Patient may require oxygen at discharge IMPRESSIONS: 1. Acute hypoxemic and hypercarbic respiratory failure secondary to COPD exacerbation secondary to RSV Extent of respiratory insult is unclear at this time. 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 Cultures have been relatively unremarkable. Patient is currently off of antibiotics and doing well. Patient may have a residual cough related to RSV. Patient also has an element of acute systolic congestive heart failure secondary to LAD lesion that has had a stent placed. Patient appears to be doing well from a respiratory standpoint. Patient should have a walking oximetry prior to discharge, but would not be surprised if low-dose nasal cannula oxygen is required, at least on ambulation. This can be followed up as an outpatient. 2. Personal history of stage IIb right breast cancer The patient is currently followed by Dr. Hoyt of oncology and is currently being maintained on adjuvant tamoxifen therapy. 3. 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 Continue Synthroid. Nicotine replacement therapy can be offered to the patient while admitted to the hospital. The patient wishes to remain DNR Comfort Care arrest with intubation at this time. Patient did have a heart stent placed, so decrease in EF likely not secondary to Takotsubu. Defer to cardiology on repeat echocardiogram Code Visit Inpatient E&M: 11496 Subs Hosp L2
--- NOTE | 2019-06-27 09:11 | PN.CARD_ITS ---
Subjectve: Patient seen and evaluated. Appears to be doing much better this morning. Objective: Vital Signs Temp Pulse Resp BP Pulse Ox 98.9 F 73 18 99/52 L 96 06/27/19 08:40 06/27/19 08:40 06/27/19 08:40 06/27/19 08:40 06/27/19 08:40 Oxygen Flow Rate (L/min) 1 Oxygen Delivery Method Nasal Cannula Weight: 162 lb 11.218 oz Body Mass Index (BMI) 26.9 Intake and Output for Last 24 Hours 06/25/19 06/26/19 06/27/19 23:59 23:59 23:59 Intake Total 877.55 / 1117.55 810 / 810 Output Total 5250 / 5950 1185 / 1185 200 / 200 Balance -4372.45 / -4832.45 -375 / -375 -200 / -200 General: Awake, Alert, Oriented x 3 HEENT: PERRL, EOMI, Sclera Non Icteric Neck: Supple, Good ROM, No Lymph Node Enlargement Lungs: Clear to auscultation Cardiovascular: Regular Rhythm, Normal S1, Normal S2, No Murmurs, No Rubs, No Gallops Vascular: No Carotid Bruits, Normal Femoral Pulses, Normal Radial Pulses, Normal Dorsalis Pedal Pulse, Normal Posterior Tibial Pulses Abdomen: Bowel Sounds Present, Soft, Non Tender, No HSM, No Organomegaly Extremities: No Cyanosis, No Clubbing, No edema Musculoskeletal: No Erythema Skin: No Rashes Lymphatic: No Lymph Node Enlargement Neurological: No Focal Motor or Sensory Deficit Psych/Mental Status: Appropriate Rhythm: EKG: ECHO: Stress Test: Cardiac Cath: PCI: CT Surgery: Holter monitor: EPS: PPM: CXR: Chest CT Scan: Medical Necessity - Tobacco Use Smoking Status: Current every day smoker Tobacco Use: Cigarettes Assessment/Plan 1. Respiratory failure with abnormal cardiac enzymes * Patient presented with respiratory failure and was noted to have mildly abnormal cardiac enzymes and EKG changes suggestive of anterior ischemia. She underwent cardiac catheterization with demonstrated the following: Normal left main coronary artery. Left anterior descending artery with proximal 80% stenosis. Left circumflex artery with no significant stenosis. Dominant right coronary artery with no significant stenosis. Based on the above angiographic findings the patient had angioplasty and stenting of the proximal left anterior descending artery. * Echocardiogram done demonstrates evidence of left ventricular systolic dysfunction with anterior apical hypokinesis and basal inferior and basal lateral and basal anterior hypokinesis. * * Would recommend starting low-dose beta-bebe and KRIS inhibitor as well as statin when parameters will allow it.. * * Thank you for allowing me to participate in the care of your patient. Please don't hesitate to call if any issues arise
[2019-06-27] MEDS: predniSONE 20 MG Tablet 40 MG PO (09:54)
[2019-06-27] MEDS: Aspirin 81 MG TAB.CHEW PO (09:54)
[2019-06-27] MEDS: Furosemide 40 MG Tablet PO (09:54)
[2019-06-27] MEDS: TICAGRELOR 90 MG TABLET PO ×2 (09:54→21:13)
[2019-06-27] MEDS: Tamoxifen 10 MG Tablet 20 MG PO (09:55)
[2019-06-27] MEDS: 0.9% Saline Lock 10 ML Syringe IV (10:00)
--- NOTE | 2019-06-27 10:00 | EKG12_ITS ---
Test Reason : AM EKG Blood Pressure : / mmHG Vent. Rate : 056 BPM Atrial Rate : 056 BPM P-R Int : 124 ms QRS Dur : 088 ms QT Int : 482 ms P-R-T Axes : 077 069 206 degrees QTc Int : [address] & Marked T wave abnormality, consider anterolateral ischemia Abnormal ECG When compared with ECG of 26-JUN-2019 06:03, MANUAL COMPARISON REQUIRED, DATA IS UNCONFIRMED Confirmed by JAZMINE SALDIVAR, ELLIOT ([id number]), news assignment editor AMANDA WADE ([id number]) on 06/29/2019 12:17:13 PM Referred By: Confirmed By:ELLIOT LUCERO MD
--- NOTE | 2019-06-27 13:26 | PN_ITS ---
Patient Problems: Active and Suspected Problems (Last Updated 06/25/19 @ 19:03 by Rochelle Cervantes) Acute hypoxemic respiratory failure (Acute 06/20/19) History of non-ST elevation myocardial infarction (NSTEMI) (Acute 06/20/19) Acute systolic (congestive) heart failure (Acute) Ischemic cardiomyopathy (Acute) History of coronary artery stent placement (Acute) [id number] LAD w/ 3.0 x 16 mm Synergy Stent Reason for Visit: Follow-up on resp failure Subjective: Patient was seen and examined. She is running relatvely low in BP. She required continued use of oxygen especially on ambulation. She denied fever or chills. Objective: Physical exam: General: Alert, Cooperative,on 1-2 L oxygen HEENT: Atraumatic, PERRLA, EOMI, Normocephalic Oral: Moist Mucosa Neck: Supple Lungs: Diminished, Wheezes , improved, + Cardiovascular: Regular rate, Regular Rhythm, Normal S1, Normal S2 Abdomen: Bowel Sounds Present, Soft, Non Tender, Non-Distended, No Hepato- splenomegaly Extremities: No edema, Capillary Refill Less than 3 Seconds, IV access on right foot Skin: No rashes, - - IV on right foot Musculoskeletal: No Tenderness to Palpation of Joints or Extremities Lymphatic: No Cervical, Supraclavicular, or Inguinal Adenopathy Neurological: Cranial nerves II-XII grossly intact, Neuro grossly intact Psych/Mental Status: Normal Affect, Appropriate Vitals/I&O's: Vital Signs Temp Pulse Resp BP Pulse Ox 98.9 F 67 16 91/55 L 90 06/27/19 08:40 06/27/19 11:30 06/27/19 11:23 06/27/19 11:30 06/27/19 13:07 Oxygen Flow Rate (L/min) [ 1 AMBULATION with Oxygen] Oxygen Flow Rate (L/min) 1 Oxygen Delivery Method Nasal Cannula Weight: 73.8 kg Body Mass Index (BMI) 26.9 Intake and Output for Last 24 Hours 06/25/19 06/26/19 06/27/19 23:59 23:59 23:59 Intake Total 877.55 / 1117.55 810 / 810 Output Total 5250 / 5950 1185 / 1185 200 / 200 Balance -4372.45 / -4832.45 -375 / -375 -200 / -200 Microbiology Past 72 Hours 06/20/19 08:25 Blood Culture (Wb) - Left Wrist Blood Culture - Final No growth in 5 days. 06/20/19 09:20 Blood Culture (Wb) - Anticubital Right Blood Culture - Final No growth in 5 days. Current Medications Acetaminophen (Tylenol) 650 mg PO Q6H PRN PRN PRN Reason: Pain Score 1-3/Temp > 100.7 F Last Admin: 06/25/19 22:02 Dose: 650 mg Documented by: Al Hydroxide/Mg Hydroxide (Mylanta Ii) 30 ml PO Q6H PRN PRN PRN Reason: Gastric Burning Albuterol Sulfate (Ventolin Aerosols) 2.5 mg INHALATION Q2H PRN PRN PRN Reason: dyspnea, wheezing Last Admin: 06/23/19 20:53 Dose: 2.5 mg Documented by: Albuterol/Ipratropium (Duoneb) 3 ml INHALATION Q4H.RT [facility] Last Admin: 06/27/19 11:26 Dose: 3 ml Documented by: Aspirin (Aspirin, Baby) 81 mg PO DAILY@0800 [facility] Last Admin: 06/27/19 09:54 Dose: 81 mg Documented by: Atorvastatin Calcium (Lipitor) 40 mg PO QHS [facility] Last Admin: 06/26/19 21:40 Dose: 40 mg Documented by: Atropine Sulfate () 0.5 mg IV UD PRN PRN Reason: HR <50 bpm Benzonatate (Tessalon Perle) 100 mg PO Q4H PRN PRN PRN Reason: COUGH Last Admin: 06/24/19 09:41 Dose: 100 mg Documented by: Carvedilol (Coreg) 3.125 mg PO BID [facility] Last Admin: 06/27/19 11:30 Dose: Not Given Documented by: Furosemide (Lasix) 40 mg PO DAILY [facility] Last Admin: 06/27/19 09:54 Dose: 40 mg Documented by: Glucagon () 1 mg IM .X1 PRN PRN Reason: Hypoglycemia Guaifenesin (Robitussin) 10 ml PO Q4H PRN PRN PRN Reason: COUGH Last Admin: 06/25/19 22:06 Dose: 10 ml Documented by: Heparin Sodium (Porcine) (Heparin Na) 5,000 unit SC Q8 [facility] Last Admin: 06/27/19 05:22 Dose: 5,000 unit Documented by: Hydralazine HCl (Apresoline Iv) 10 mg IV Q4H PRN PRN PRN Reason: SBP > 160 Sodium Chloride () 250 mls @ 15 mls/hr IV .[id number] PRN PRN Reason: Saline Flush Last Infusion: 06/22/19 19:00 Dose: Infused Documented by: Dextrose (Dextrose 10%-Water) 250 mls @ 999 mls/hr IV .Q16M PRN; Protocol PRN Reason: HYPOGLYCEMIA Sodium Chloride () 1,000 mls @ 15 mls/hr IV .Q48H [facility] Last Admin: 06/27/19 08:31 Dose: Not Given Documented by: Levothyroxine Sodium (Synthroid) 137 mcg PO DAILY@0600 [facility] Last Admin: 06/27/19 05:21 Dose: 137 mcg Documented by: Magnesium Hydroxide (Milk Of Magnesia) 30 ml PO DAILY PRN PRN PRN Reason: Constipation Nicotine (Nicoderm Cq (Pbkc)) 7 mg TRANSDERM. DAILY [facility] Last Admin: 06/27/19 09:54 Dose: 7 mg Documented by: Nitroglycerin (Nitrostat) 0.4 mg SUBLINGUAL Q5M PRN PRN Reason: CARDIAC/CHEST PAIN Ondansetron HCl (Zofran) 4 mg IV Q8H PRN PRN PRN Reason: NAUSEA/VOMITING Prednisone () 40 mg PO DAILY@0800 [facility] Last Admin: 06/27/19 09:54 Dose: 40 mg Documented by: Prochlorperazine Edisylate (Compazine Iv) 5 mg IV Q4H PRN PRN PRN Reason: Breakthrough Nausea/Vomiting Sodium Chloride () 10 - 40 ml IV UD PRN PRN Reason: SALINE FLUSH Last Admin: 06/27/19 10:00 Dose: 20 ml Documented by: Tamoxifen Citrate (Nolvadex) 20 mg PO DAILY [facility] Last Admin: 06/27/19 09:55 Dose: 20 mg Documented by: Throat Lozenges (Cepacol Sore Throat Lozenge) 1 lozenge MUCOUS MEM Q2H PRN PRN PRN Reason: Sore Throat/Cough Last Admin: 06/25/19 10:34 Dose: 1 lozenge Documented by: Ticagrelor (Brilinta) 90 mg PO BID [facility] Last Admin: 06/27/19 09:54 Dose: 90 mg Documented by: STROKE Vital Signs/Narrative: Vital Signs Pulse Resp BP Pulse Ox Pulse Ox Pulse Ox 06/27/19 13:07 88 89 90 06/27/19 11:30 67 91/55 L 06/27/19 11:23 67 16 Medical Necessity - Tobacco Use Smoking Status: Current every day smoker Tobacco Use: Cigarettes Assessment/Plan All Active Problems (Last Updated 06/25/19 @ 19:03 by Rochelle Cervantes) Acute hypoxemic respiratory failure (Acute 06/20/19) History of non-ST elevation myocardial infarction (NSTEMI) (Acute 06/20/19) Acute systolic (congestive) heart failure (Acute) Ischemic cardiomyopathy (Acute) History of coronary artery stent placement (Acute) Chemotherapy-induced nausea (Resolved) Diarrhea (Resolved) Exertional dyspnea (Resolved) Nausea vomiting and diarrhea (Resolved) Perineal pain (Resolved) Sore throat (Resolved) 73-year-old female with past medical history of right breast CA, chronic respiratory failure, on 2 L of oxygen, COPD/Langerhans cell histiocytosis who was transferred from [facility] with progressive shortness of breath. 1. 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 Acute systolic CHF, probable secondary to Takotsubo cardiomyopathy, EF 40% Will continue with oral Lasix 40mg daily 3. Acute NSTEMI, CAD, s/p cardiac cath with stent to mid-LAD EKG appears the same Will continue on aspirin,Brilinta,statin Cardiology following 4. Suspected Community-acquired pneumonia, ruled out with negative chest x-ray here MRSA screen is negative. Blood cultures negative, off antibiotics 5. Hypotension/shock, unclear etiology, probable cardiogenic, EF 40%, required use of Levophed Off Levophed, BP have improved, will continue to monitor pressures. 6. Right breast CA stage IIIb, follows in the outpatient with oncology, continue on Tamoxifen 7. Hypothyroidism, continue on Synthroid 8. Tobacco dependence, advised to quit 9. DVT prophylaxis - Heparin SC 10. Code status: Full code Code Visit Inpatient E&M: 57726 Subs Hosp L2
[2019-06-27] MEDS: Atorvastatin Calcium 40 MG Tablet PO (21:13)
[2019-06-27] MEDS: Carvedilol 3.125 MG TABLET PO (21:13)
[2019-06-28] VITALS (8 sets, daily range): BP systolic 98–118; BP diastolic 51–60; PULSE 55–81; RESP 16–20; TEMP 36.6–37; O2SAT 87–97
[2019-06-28] MEDS: Heparin Injection (Vial) 5,000 UNIT/ML VIAL 5000 UNIT SC (05:51)
[2019-06-28] MEDS: Levothyroxine 137 MCG Tablet PO (05:51)
[2019-06-28] MEDS: Ipratropium/Albuterol Sulfate 3 ML AMPUL.NEB INHALATION ×2 (07:09→11:36)
--- NOTE | 2019-06-28 08:28 | PN.CARD_ITS ---
Subjectve: Patient seen and evaluated. Appears to be stable. Objective: Vital Signs Temp Pulse Resp BP Pulse Ox 98.0 F 81 18 118/60 97 06/28/19 03:10 06/28/19 07:36 06/28/19 03:10 06/28/19 03:10 06/28/19 03:10 Oxygen Flow Rate (L/min) [ 1 AMBULATION with Oxygen] Oxygen Flow Rate (L/min) 2 Oxygen Delivery Method Nasal Cannula Weight: 160 lb 11.472 oz Body Mass Index (BMI) 26.9 Intake and Output for Last 24 Hours 06/26/19 06/27/19 06/28/19 23:59 23:59 23:59 Intake Total 810 / 810 836 / 956 120 / 120 Output Total 1185 / 1185 420 / 420 Balance -375 / -375 416 / 536 120 / 120 General: Awake, Alert, Oriented x 3 HEENT: PERRL, EOMI, Sclera Non Icteric Neck: Supple, Good ROM, No Lymph Node Enlargement Lungs: Clear to auscultation Cardiovascular: Regular Rhythm, Normal S1, Normal S2, No Murmurs, No Rubs, No Gallops Vascular: No Carotid Bruits, Normal Femoral Pulses, Normal Radial Pulses, Normal Dorsalis Pedal Pulse, Normal Posterior Tibial Pulses Abdomen: Bowel Sounds Present, Soft, Non Tender, No HSM, No Organomegaly Extremities: No Cyanosis, No Clubbing, No edema Neurological: No Focal Motor or Sensory Deficit Rhythm: EKG: ECHO: Stress Test: Cardiac Cath: PCI: CT Surgery: Holter monitor: EPS: PPM: CXR: Chest CT Scan: Medical Necessity - Tobacco Use Smoking Status: Current every day smoker Tobacco Use: Cigarettes Assessment/Plan 1. Respiratory failure with abnormal cardiac enzymes * Patient presented with respiratory failure and was noted to have mildly abnormal cardiac enzymes and EKG changes suggestive of anterior ischemia. She underwent cardiac catheterization with demonstrated the following: Normal left main coronary artery. Left anterior descending artery with proximal 80% stenosis. Left circumflex artery with no significant stenosis. Dominant right coronary artery with no significant stenosis. Based on the above angiographic findings the patient had angioplasty and stenting of the proximal left anterior descending artery. * Echocardiogram done demonstrates evidence of left ventricular systolic dysfunction with anterior apical hypokinesis and basal inferior and basal lateral and basal anterior hypokinesis. * * Would recommend continuing low-dose beta-bebe and KRIS inhibitor as well as statin when parameters will allow it.. * * Thank you for allowing me to participate in the care of your patient. Please don't hesitate to call if any issues arise
[2019-06-28] MEDS: TICAGRELOR 90 MG TABLET PO (08:49)
[2019-06-28] MEDS: predniSONE 20 MG Tablet 40 MG PO (08:49)
[2019-06-28] MEDS: Aspirin 81 MG TAB.CHEW PO (08:49)
--- NOTE | 2019-06-28 11:23 | CASEMGMT ---
Addendum entered by Arleen Lily 06/28/19 12:13: Call back from Kareen at [facility] and she states that they will have a tank here for pt within the hour. Pt also already set up with [facility] for RN, PT/OT at discharge and Angelina at [facility] aware that pt will be discharged today, voices understanding. Pt is updated on all at this time, voices understanding. Pt states that she would like scripts transferred to [facility] retail pharmacy at this time so that she can go home with her meds and won't have to stop. Call to Estefania at [facility] retail pharmacy and she is aware that pt would like meds transferred from [facility] in [place] at this time. Pt voices questions regarding meds at discharge and this AIME CANTU informed Luz, [facility] pharmacist, at this time and she was already on her way into room to speak with pt at this time. Pt is unsure where the Brilinta card she was previously provided with is, so pt provided another savings card at this time by Luz [facility] pharmacist. Pt voices no further questions/concerns/needs at this time. Stephany SALOMON CM Original Note: Pt does qualify for home oxygen 1 liter with ambulation at this time. Pt is currently on 2liters at bedtime with [facility]. New order faxed to [facility] at this time and message left with Kareen at [facility] in regards to new order, that pt to be discharged, and that pt will need a tank for discharge. This RN CM left contact info for [facility] at this time. Stephany SALOMON CM
--- NOTE | 2019-06-28 11:34 | PCM.DC ---
- Discharge Diagnoses Current Active Problems: Current Active and Chronic Problems (Last Updated 06/25/19 @ 19:03 by Rochelle Cervantes) Acute hypoxemic respiratory failure (Acute 06/20/19) History of non-ST elevation myocardial infarction (NSTEMI) (Acute 06/20/19) Acute systolic (congestive) heart failure (Acute) Ischemic cardiomyopathy (Acute) Atherosclerosis of coronary artery of [place] heart without angina pectoris (Chronic) History of coronary artery stent placement (Acute) [id number] LAD w/ 3.0 x 16 mm Synergy Stent Nicotine dependence (Chronic) You will use the following diet at home:: Cardiac Your food should be the consistency of: Regular Your liquids should be the consistency of: Regular/Thin Discharge Activity: Return to Normal Activity Weight Bearing Status: Weight bearing as tolerated Call your doctor if you observe: Fever of 101 or Higher, Shortness of breath, Swelling in the ankles, Chest pain Instructions: Inside the ICU (Intensive Care Unit), Heart Failure, Heart Failure: Medications to Help Your Heart, Heart Attack Additional Instructions: Take lisinopril at noon. Use oxygen as needed for shortness of breath. check BP at home; call your doctor if your BP is low (<110/70) Allergies/Adverse Reactions: Allergies No Known Allergies Allergy (Verified 05/12/19 11:06) Medications to take at Discharge Albuterol Aerosols [Ventolin Aerosols] 1 puff INHALATION DAILY 10/21/17 Albuterol Inhaler [Ventolin Hfa] 1 puff INHALATION DAILY 10/21/17 Fluticasone/Vilanterol [Breo Ellipta 200-25 Mcg INH] 1 puff INHALATION QODAY 10/21/17 Lidocaine/Prilocaine [Lidocaine-Prilocaine Cream] 30 gm TP DAILY PRN PRN 30 Days #1 cream..g. 10/30/17 Levothyroxine [Synthroid] 137 mcg PO DAILY 05/12/19 Tamoxifen Citrate [Nolvadex] 20 mg PO DAILY #90 tab 05/12/19 Aspirin [Aspirin, Baby] 81 mg PO DAILY@0800 #30 tab.chew 06/28/19 Atorvastatin Calcium [Lipitor] 40 mg PO QHS #30 tab 06/28/19 Carvedilol [Coreg (Beta Rosmery)] 3.125 mg PO BID #30 tab 01/27/20 Furosemide [Lasix] 40 mg PO DAILY #30 tab 06/28/19 Lisinopril [Zestril] 2.5 mg PO DAILY #30 tab 06/28/19 Ticagrelor [Brilinta] 90 mg PO BID #60 tab 06/28/19 The following prescriptions were given: Aspirin [Aspirin, Baby] 81 mg PO DAILY@0800 #30 tab.chew Transmission Status: Pending to [facility] Ticagrelor [Brilinta] 90 mg PO BID #60 tab Transmission Status: Pending to [facility] Carvedilol [Coreg (Beta Rosmery)] 3.125 mg PO BID #30 tab Transmission Status: Pending to [facility] Furosemide [Lasix] 40 mg PO DAILY #30 tab Transmission Status: Pending to [facility] Atorvastatin Calcium [Lipitor] 40 mg PO QHS #30 tab Transmission Status: Pending to [facility] Lisinopril [Zestril] 2.5 mg PO DAILY #30 tab Transmission Status: Pending to [facility] Primary Care Physician: Mike Asher MD [Primary Care Provider] - Please follow up with your Primary Care Physician in: ONE WEEK Test Results: Test results from this visit will be discussed in further detail at your follow-up appointment, if applicable. Please Follow Up With: Thomas Paz MD When: 2-3 WEEKS; CALL OFFICE FOR APPOINTMENT Please Follow Up With: Johann Lugo MD When: 1-2 WEEKS; CALL OFFICE FOR APPOINTMENT Proposed Discharge Date: 06/28/19
--- NOTE | 2019-06-28 11:39 | PCM.DC.SUM ---
Discharge Date and Diagnosis - Problem List Patient Problems: Active and Suspected Problems (Last Updated 06/25/19 @ 19:03 by Rochelle Cervantes) Acute hypoxemic respiratory failure (Acute 06/20/19) History of non-ST elevation myocardial infarction (NSTEMI) (Acute 06/20/19) Acute systolic (congestive) heart failure (Acute) Ischemic cardiomyopathy (Acute) History of coronary artery stent placement (Acute) [id number] LAD w/ 3.0 x 16 mm Synergy Stent Date of Admission: 06/20/19 Date of Discharge: 06/28/19 - Primary Discharge Diagnosis Active and Suspected Problems (Last Updated 06/25/19 @ 19:03 by Rochelle Cervantes) Acute hypoxemic respiratory failure (Acute 06/20/19) History of non-ST elevation myocardial infarction (NSTEMI) (Acute 06/20/19) Acute systolic (congestive) heart failure (Acute) Ischemic cardiomyopathy (Acute) History of coronary artery stent placement (Acute) [id number] LAD w/ 3.0 x 16 mm Synergy Stent RSV infection - Secondary Discharge Diagnosis Chronic Problems (Last Updated 06/25/19 @ 19:03 by Rochelle Cervantes) Atherosclerosis of coronary artery of [place] heart without angina pectoris (Chronic) Nicotine dependence (Chronic) Breast cancer, right breast (Chronic) Antineoplastic chemotherapy induced anemia (Chronic) Hospital Course and Treatment Imaging Results: Diagnostic Data Chest X-Ray 06/21/19 01:25 IMPRESSION: No acute cardiopulmonary disease. Electronically Signed: Christy Peter MD at 2:08 EST , Service support , KUB X-Ray 06/21/19 11:47 IMPRESSION: The tip of the orogastric tube is in the fundal portion of the stomach. Electronically Signed: Chang Shepard at 13:12 EST , Service support , cardiology- Dr Paz critical care- Dr Lugo Operations: None Procedures: 2-D Echocardiogram, Cardiac catheterization Summary of Care Provided: The patient is a 73 year old F with an extensive medical history as listed who was admitted through the ED on 06/20/2019 with a complaint of shortness of breath which started 3 days prior to her admission. It was worsened by exertion and she also had a productive cough as well as a low-grade fever and wheezing. She did have a history of chronic respiratory failure due to COPD and was on 2 L of oxygen at home. She initially went to the [facility] ED in [facility] which was diagnosed with acute hypoxic respiratory failure and placed on BiPAP which he did not tolerate. She was therefore placed on high flow oxygen and subsequently transferred to [facility] for further management. On admission, was no elevated white cell count initial troponin was 0.3. BNP was 82 and rapid influenza screen was negative. A CT of the chest was done which showed no evidence of PE and showed right hilar lymph node enlargement along with bronchial wall thickening and groundglass changes throughout the right hemithorax as well as bilateral emphysematous changes. She was admitted and managed for acute hypoxic respiratory failure due to community-acquired pneumonia. She was started on IV Levaquin and vancomycin, bronchodilators and IV steroids. Patient was unable to tolerate BiPAP due to claustrophobia and so she was transitioned to Airvo. Cardiology was also consulted on account of the elevated troponin and sinus tachycardia. Subsequent EKG done showed poor R wave progression with T wave inversions in the inferior as well as the anterior leads. She was started on heparin drip. Patient subsequently became fatigued from a respiratory standpoint and was intubated on 06/20/2019. She also required Levophed at a point on account of hypotension and she did have some nonsustained V. tach as well. She was successfully extubated on 06/23/2019. She subsequently tested positive for RSV. Urine for strep and Legionella were negative. Patient new T wave inversions, she was diagnosed with acute non-STEMI. 2D echocardiogram done showed EF of 40% with moderate segmental systolic dysfunction and global hypokinesis of the left ventricle. Right ventricle was normal in size and function. She had a cardiac catheterization done on 06/25/2019 which showed severe single-vessel coronary artery disease with proximal 80% LAD stenosis and severe left ventricular systolic dysfunction involving the anterior wall apex and inferior apical wall; she had angioplasty with placement of drug-eluting stent in the proximal LAD. Patient remained stable and was transferred to the progressive care unit where her course was uncomplicated. She was placed on aspirin, Brilinta, statin and low-dose lisinopril as well as low-dose carvedilol. She had walking pulse ox done on 06/28/2019 which showed that she desaturated to 87% on room air with ambulation therefore she required oxygen during the day as well. Patient remained stable and was discharged home with home health care on 06/28/2019 with a prescription for p.o. aspirin, statin, Brilinta, carvedilol and lisinopril. Patient was counseled that she should take the lisinopril at noon so that her blood pressure did not drop below. She was also counseled to be checking her blood pressure was at home and to hold off on taking her blood pressure medications and to call her primary care doctor and instructional writer if blood pressure was lower than 110/70 to determine if she should take the meds. She was also discharged with a prescription for 2 L of oxygen to use during the day and at night. She ss to follow-up with her primary care doctor and cardiology within 1 to 2 weeks. Patient seen and examined prior to discharge. She had no complaints and felt well. Review of systems otherwise negative. Labs and vitals reviewed. Home medication reviewed and reconciled. Patient Problems: Active and Suspected Problems (Last Updated 06/25/19 @ 19:03 by Rochelle Cervantes) Acute hypoxemic respiratory failure (Acute 06/20/19) History of non-ST elevation myocardial infarction (NSTEMI) (Acute 06/20/19) Acute systolic (congestive) heart failure (Acute) Ischemic cardiomyopathy (Acute) History of coronary artery stent placement (Acute) [id number] LAD w/ 3.0 x 16 mm Synergy Stent - Physical Exam Vitals/I&O's: Vital Signs Temp Pulse Resp BP Pulse Ox 98.6 F 69 18 108/60 90 06/28/19 10:50 06/28/19 10:50 06/28/19 10:50 06/28/19 10:50 06/28/19 10:50 Oxygen Flow Rate (L/min) [ 1 AMBULATION with Oxygen] Oxygen Flow Rate (L/min) 1 Oxygen Delivery Method Nasal Cannula Weight: 160 lb 11.472 oz Body Mass Index (BMI) 26.9 Intake and Output for Last 24 Hours 06/26/19 06/27/19 06/28/19 23:59 23:59 23:59 Intake Total 810 / 810 836 / 956 120 / 120 Output Total 1185 / 1185 420 / 420 Balance -375 / -375 416 / 536 120 / 120 General: Alert, Oriented x3, Cooperative HEENT: Atraumatic, PERRLA, EOMI, Normocephalic Oral: Moist Mucosa Neck: Supple, No JVD, Negative Carotid Bruits Lungs: - - breath sounds mildly diminished bibasally, no wheees or crackles. on 2L of oxygen Cardiovascular: Regular rate, Regular Rhythm, Normal S1, Normal S2, No murmurs Abdomen: Bowel Sounds Present, Soft, Non Tender, Non-Distended, No Hepato-splenomegaly Extremities: No clubbing, No cyanosis, No edema, Capillary Refill Less than 3 Seconds Skin: No rashes, No breakdown Musculoskeletal: No Tenderness to Palpation of Joints or Extremities Lymphatic: No Cervical, Supraclavicular, or Inguinal Adenopathy Neurological: Cranial nerves II-XII grossly intact, Neuro grossly intact, Motor Exam 5/5 strength throughout Psych/Mental Status: Normal Affect, Appropriate, Alert and oriented to time, place, person, mood and affect Microbiology Past 72 Hours 06/20/19 08:25 Blood Culture (Wb) - Left Wrist Blood Culture - Final No growth in 5 days. 06/20/19 09:20 Blood Culture (Wb) - Anticubital Right Blood Culture - Final No growth in 5 days. Diagnostic Data Chest X-Ray 06/21/19 01:25 IMPRESSION: No acute cardiopulmonary disease. Electronically Signed: Christy Peter MD at 2:08 EST , Service support , KUB X-Ray 06/21/19 11:47 IMPRESSION: The tip of the orogastric tube is in the fundal portion of the stomach. Electronically Signed: Chang Shepard, at 13:12 EST , Service support , Current Medications Acetaminophen (Tylenol) 650 mg PO Q6H PRN PRN PRN Reason: Pain Score 1-3/Temp > 100.7 F Last Admin: 06/25/19 22:02 Dose: 650 mg Documented by: Al Hydroxide/Mg Hydroxide (Mylanta Ii) 30 ml PO Q6H PRN PRN PRN Reason: Gastric Burning Albuterol Sulfate (Ventolin Aerosols) 2.5 mg INHALATION Q2H PRN PRN PRN Reason: dyspnea, wheezing Last Admin: 06/23/19 20:53 Dose: 2.5 mg Documented by: Albuterol/Ipratropium (Duoneb) 3 ml INHALATION Q4H.RT [facility] Last Admin: 06/28/19 11:36 Dose: 3 ml Documented by: Aspirin (Aspirin, Baby) 81 mg PO DAILY@0800 [facility] Last Admin: 06/28/19 08:49 Dose: 81 mg Documented by: Atorvastatin Calcium (Lipitor) 40 mg PO QHS [facility] Last Admin: 06/27/19 21:13 Dose: 40 mg Documented by: Atropine Sulfate () 0.5 mg IV UD PRN PRN Reason: HR <50 bpm Benzonatate (Tessalon Perle) 100 mg PO Q4H PRN PRN PRN Reason: COUGH Last Admin: 06/24/19 09:41 Dose: 100 mg Documented by: Carvedilol (Coreg) 3.125 mg PO BID [facility] Last Admin: 06/27/19 21:13 Dose: 3.125 mg Documented by: Furosemide (Lasix) 40 mg PO DAILY [facility] Last Admin: 06/27/19 09:54 Dose: 40 mg Documented by: Glucagon () 1 mg IM .X1 PRN PRN Reason: Hypoglycemia Guaifenesin (Robitussin) 10 ml PO Q4H PRN PRN PRN Reason: COUGH Last Admin: 06/25/19 22:06 Dose: 10 ml Documented by: Heparin Sodium (Porcine) (Heparin Na) 5,000 unit SC Q8 [facility] Last Admin: 06/28/19 05:51 Dose: 5,000 unit Documented by: Hydralazine HCl (Apresoline Iv) 10 mg IV Q4H PRN PRN PRN Reason: SBP > 160 Sodium Chloride () 250 mls @ 15 mls/hr IV .[id number] PRN PRN Reason: Saline Flush Last Infusion: 06/22/19 19:00 Dose: Infused Documented by: Dextrose (Dextrose 10%-Water) 250 mls @ 999 mls/hr IV .Q16M PRN; Protocol PRN Reason: HYPOGLYCEMIA Sodium Chloride () 1,000 mls @ 15 mls/hr IV .Q48H [facility] Last Admin: 06/27/19 08:31 Dose: Not Given Documented by: Levothyroxine Sodium (Synthroid) 137 mcg PO DAILY@0600 [facility] Last Admin: 06/28/19 05:51 Dose: 137 mcg Documented by: Lisinopril (Zestril) 2.5 mg PO DAILY [facility] Magnesium Hydroxide (Milk Of Magnesia) 30 ml PO DAILY PRN PRN PRN Reason: Constipation Nicotine (Nicoderm Cq (Pbkc)) 7 mg TRANSDERM. DAILY [facility] Last Admin: 06/28/19 08:50 Dose: 7 mg Documented by: Nitroglycerin (Nitrostat) 0.4 mg SUBLINGUAL Q5M PRN PRN Reason: CARDIAC/CHEST PAIN Ondansetron HCl (Zofran) 4 mg IV Q8H PRN PRN PRN Reason: NAUSEA/VOMITING Prednisone () 40 mg PO DAILY@0800 [facility] Last Admin: 06/28/19 08:49 Dose: 40 mg Documented by: Prochlorperazine Edisylate (Compazine Iv) 5 mg IV Q4H PRN PRN PRN Reason: Breakthrough Nausea/Vomiting Sodium Chloride () 10 - 40 ml IV UD PRN PRN Reason: SALINE FLUSH Last Admin: 06/27/19 10:00 Dose: 20 ml Documented by: Tamoxifen Citrate (Nolvadex) 20 mg PO DAILY [facility] Last Admin: 06/28/19 08:50 Dose: Not Given Documented by: Throat Lozenges (Cepacol Sore Throat Lozenge) 1 lozenge MUCOUS MEM Q2H PRN PRN PRN Reason: Sore Throat/Cough Last Admin: 06/25/19 10:34 Dose: 1 lozenge Documented by: Ticagrelor (Brilinta) 90 mg PO BID [facility] Last Admin: 06/28/19 08:49 Dose: 90 mg Documented by: Discharge Diet: Low fat/ Low Cholesterol Discharge Activity: Return to Normal Activity Weight Bearing Status: Weight bearing as tolerated Call your doctor if you observe: Fever of 101 or Higher, Shortness of breath, Swelling in the ankles, Chest pain Home Medications: Medications to take at Discharge Albuterol Aerosols [Ventolin Aerosols] 1 puff INHALATION DAILY 10/21/17 Albuterol Inhaler [Ventolin Hfa] 1 puff INHALATION DAILY 10/21/17 Fluticasone/Vilanterol [Breo Ellipta 200-25 Mcg INH] 1 puff INHALATION QODAY 10/21/17 Lidocaine/Prilocaine [Lidocaine-Prilocaine Cream] 30 gm TP DAILY PRN PRN 30 Days #1 cream..g. 10/30/17 Levothyroxine [Synthroid] 137 mcg PO DAILY 05/12/19 Tamoxifen Citrate [Nolvadex] 20 mg PO DAILY #90 tab 05/12/19 Aspirin [Aspirin, Baby] 81 mg PO DAILY@0800 #30 tab.chew 06/28/19 Atorvastatin Calcium [Lipitor] 40 mg PO QHS #30 tab 06/28/19 Carvedilol [Coreg (Beta Rosmery)] 3.125 mg PO BID #30 tab 06/28/19 Furosemide [Lasix] 40 mg PO DAILY #30 tab 06/28/19 Lisinopril [Zestril] 2.5 mg PO DAILY #30 tab 06/28/19 Ticagrelor [Brilinta] 90 mg PO BID #60 tab 06/28/19 Following Prescrptions Were Given to Patient: Aspirin [Aspirin, Baby] 81 mg PO DAILY@0800 #30 tab.chew Transmission Status: Received by [facility] Ticagrelor [Brilinta] 90 mg PO BID #60 tab Transmission Status: Received by [facility] Carvedilol [Coreg (Beta Rosmery)] 3.125 mg PO BID #30 tab Transmission Status: Received by [facility] Furosemide [Lasix] 40 mg PO DAILY #30 tab Transmission Status: Received by [facility] Atorvastatin Calcium [Lipitor] 40 mg PO QHS #30 tab Transmission Status: Received by [facility] Lisinopril [Zestril] 2.5 mg PO DAILY #30 tab Transmission Status: Received by [facility] Primary Care Physician: Mike Asher MD [Primary Care Provider] - Please follow up with your Primary Care Physician in: ONE WEEK Please Follow Up With: Thomas Paz MD When: 2-3 WEEKS; CALL OFFICE FOR APPOINTMENT Please Follow Up With: Johann Lugo MD When: 1-2 WEEKS; CALL OFFICE FOR APPOINTMENT Patient Instructions: Inside the ICU (Intensive Care Unit), Heart Failure: Medications to Help Your Heart, Heart Failure, Heart Attack Disposition: Home with Home Health Minutes spent on discharge:: 50 Patient Condition:: Stable Medical Necessity - Tobacco Use Smoking Status: Current every day smoker Tobacco Use: Cigarettes Meaningful Use Info Meaningful Use Diagnoses (Choose all that apply): AMI, CHF - AMI/Post PCI/Angioplasty Aspirin given w/in 24hrs of arrival?: Yes ASA at discharge?: Yes Antiplatelet Therapy at Discharge:: Yes Statins at discharge?: Yes Toribio/ARB at discharge?: Yes Beta Rosmery at discharge?: Yes Done w/ Acute PA measure.: Yes Documented LVEF (%): 40 - CHF TORIBIO/ARB ordered at discharge?: Yes Documented LVEF (%): 40 Code Visit Inpatient E&M: [id number] Disch Hosp
--- NOTE | 2019-06-28 12:58 | PHA.DC.MC ---
Pharmacy Service has performed discharge medication reconciliation and counseling for this patient. The patient's discharge medication list was reviewed for discrepancies and discrepancies were resolved. Home Medications Albuterol Aerosols [Ventolin Aerosols] 1 puff INHALATION DAILY 10/21/17 Albuterol Inhaler [Ventolin Hfa] 1 puff INHALATION DAILY 10/21/17 Fluticasone/Vilanterol [Breo Ellipta 200-25 Mcg INH] 1 puff INHALATION QODAY 10/21/17 Lidocaine/Prilocaine [Lidocaine-Prilocaine Cream] 30 gm TP DAILY PRN PRN 30 Days #1 cream..g. 10/30/17 Levothyroxine [Synthroid] 137 mcg PO DAILY 05/12/19 Tamoxifen Citrate [Nolvadex] 20 mg PO DAILY #90 tab 05/12/19 Aspirin [Aspirin, Baby] 81 mg PO DAILY@0800 #30 tab.chew 06/28/19 Atorvastatin Calcium [Lipitor] 40 mg PO QHS #30 tab 06/28/19 Carvedilol [Coreg (Beta Rosmery)] 3.125 mg PO BID #30 tab 06/28/19 Furosemide [Lasix] 40 mg PO DAILY #30 tab 06/28/19 Lisinopril [Zestril] 2.5 mg PO DAILY #30 tab 06/28/19 Ticagrelor [Brilinta] 90 mg PO BID #60 tab 06/28/19 The patient was counseled on the following discharge medications and changes in medications for homegoing were reviewed. 1. ASPIRIN 2. BRILINTA 3. LIPITOR 4. COREG 5. LISINOPRIL 6. LASIX The Reason for Use, instructions for use, and potential side effects were reviewed for all new medications. The patient's questions regarding all of their medications were answered. The patient demonstrated some understanding but would benefit from further education and reinforcement.
[2019-06-28] MEDS: 0.9% Saline Lock 10 ML Syringe IV (13:51)
--- NOTE | 2019-06-28 14:35 | CHAPLAIN ---
very brief visit as patient is going home soon; pt expresses thankfulness for prayers and previous support while in ICU; no other concerns
--- NOTE | 2019-06-29 13:00 | CASEMGMT ---
AIME CANTU DC PHONE CALL DC DATE: 06.28.2019 DC Disposition: Home Diagnosis on Discharge: Acute hypoxemic respiratory failure. LACE/STRATA: 03/04 Intro role of CM to patient via phone. Pt states she is doing well, has prescriptions, no questions re: medications and understands dc instructions. Spoke with pt re: f/u. Pt has appt with PCP on Friday. States she left message with Dr. Paz's office and is awaiting call back, and has appt with Dr. Lugo in August. AIME CANTU discussed seeing Dr. Lugo sooner. Pt is agreeable to having RN CM call office and try to get earlier appt. -Call to sec @ Dr. Lugo's office. Explained pt is post hospital with respiratory failure diagnosis. *appointment made for July 07 @ 1015. Pt called to update on appointment. -No further concerns. No care improvement suggestions were given. -[facility] to see patient tomorrow. Jerardo COSME RN ACM
== END 2019-06-28 14:40 | disposition home health service (06) | DRG 981 ==
LOC: ICU 06-26 08:09 → PCU 06-26 10:41
PROVIDERS: Internal Medicine; Internal Medicine Cardiovascular Disease; Internal Medicine Critical Care Medicine; Specialist; Admitting Provider Family Medicine; Visit Provider Student in an Organized Health Care Education/Training Program
DX: J96.21 Acute and chronic respiratory failure with hypoxia (principal); I21.4 Non-ST elevation (NSTEMI) myocardial infarction; R57.0 Cardiogenic shock; I50.21 Acute systolic (congestive) heart failure; J44.1 Chronic obstructive pulmonary disease with (acute) exacerbation; B97.4 Respiratory syncytial virus as the cause of diseases classified elsewhere; E03.9 Hypothyroidism, unspecified; C50.911 Malignant neoplasm of unspecified site of right female breast; Z99.81 Dependence on supplemental oxygen; Z17.0 Estrogen receptor positive status [ER+]; F17.210 Nicotine dependence, cigarettes, uncomplicated; Z66 Do not resuscitate; I25.5 Ischemic cardiomyopathy; D64.81 Anemia due to antineoplastic chemotherapy; T45.1X5A Adverse effect of antineoplastic and immunosuppressive drugs, initial encounter; Z79.810 Long term (current) use of selective estrogen receptor modulators (SERMs); Z90.11 Acquired absence of right breast and nipple
CPT/HCPCS: 31500; 31720; 36600; 71045; 74018; 80048; 80053; 80061; 82550; 82803; 82962; 83605; 83735; 83880; 84100; 84478; 84484; 85025; 85027; 85610; 85730; 87040; 87070; 87205; 87449; 87633; 87641; 92928; 93005; 93306; 93454; 94002; 94003; 94640; 94660; 94667; 94668; 97110; 97116; 97162; 97163; 97166; 97167; 97530; 97535; 97802; 97803; 99251; 99406; J7030; J7040; J7050; A4216; C1760; C1769; C1874; C1887; C1894; C9600; G0463; J1327; J1940; J3490; Q9967

== ENCOUNTER 2019-10-11 18:17 | Inpatient (IN) | payer MEDICARE, SELFPAY ==
[2018-05-12 09:29] VITALS: BMI 27.5
[2019-08-06 13:26] VITALS: BMI 27.8
[2019-10-11] VITALS (12 sets, daily range): BP systolic 95–129; BP diastolic 64–76; PULSE 72–93; RESP 17–25; TEMP 36.3–36.9; O2SAT 93–99; BMI 26.8; BMI 25.9; BMI 26.0
--- NOTE | 2019-10-11 18:45 | ED.RN ---
RN CALLED FOR EKG, PULLED OLD EKGS FOR
--- NOTE | 2019-10-11 18:53 | EKG12_ITS ---
Test Reason : SOB Blood Pressure : / mmHG Vent. Rate : 084 BPM Atrial Rate : 084 BPM P-R Int : 158 ms QRS Dur : 082 ms QT Int : 402 ms P-R-T Axes : 044 064 097 degrees QTc Int : 475 ms Normal sinus rhythm Normal ECG Confirmed by BRENNAN FARRIS ([id number]), editorial assistant KATLYN ALBERTO ([id number]) on 10/18/2019 1:47:10 PM Referred By: ANANT Confirmed By:BRENNAN FARRIS
--- NOTE | 2019-10-11 19:07 | ED.VIS.GEN ---
History of Present Illness Chief Complaint: Shortness of Breath Informant: Patient Onset: Days Context: Gradual Onset Current Severity: Mild Maximum Severity: Moderate Narrative: Patient present secondary shortness of breath. She is a history of COPD and wears 1-1/2 L of oxygen. Patient states of the past couple days she is had flares of increasing shortness of breath, but today was unable to catch her breath. EMS reportedly documented her O2 sat at 66%. They did comment that the O2 tubing was very long. Patient states that she felt better with a breathing treatment and there oxygen. She reports some mild chest tightness. No fever or chills. No significant cough. She was last on steroids approximately 3 months ago. - Past Medical History (1) COPD (chronic obstructive pulmonary disease) Status: Chronic (2) History of non-ST elevation myocardial infarction (NSTEMI) Status: Chronic (3) Acute systolic (congestive) heart failure Status: Chronic (4) Ischemic cardiomyopathy Status: Chronic (5) Atherosclerosis of coronary artery of [place] heart without angina pectoris Status: Chronic (6) History of coronary artery stent placement Status: Chronic Comment: SYO-PNH-Ajcl LAD w/ 3.0 x 16 mm Synergy Stent (7) Breast cancer, right breast Status: Chronic Past Medical History - Allergies and Home Meds Allergies/Adverse Reactions: Allergies No Known Allergies Allergy (Verified 10/11/19 19:21) Primary Care Physician: Mike Asher MD [Primary Care Provider] - Prior records reviewed: Yes Surgical History: - Smoking Status: Current every day smoker Review of Systems General: Denies: Chills, Fever Eyes: Denies: Visual changes - bilaterally ENT: Denies: Bilateral ear pain Cardiovascular: Reports: Chest pain - Lung tightness Respiratory: Reports: Dyspnea Gastrointestinal: Denies: Abdominal pain, Nausea, Vomiting, Diarrhea Genitourinary: Denies: Dysuria Musculoskeletal: Denies: Swelling, Extremity Pain Skin: Denies: Rash Neurological: Denies: Headache Hematologic: Denies: Easy bruising, Easy bleeding Allergy: Denies: Uticaria Physical Exam Vital Signs/Narrative: Vital Signs Temp Pulse Resp BP Pulse Ox 10/11/19 18:17 97.3 F L 93 23 H 129/76 H 94 Inital Vital Signs reviewed: Yes General: Well nourished, Well developed Head: Normocephalic ENT: Moist mucous membranes Neck: Supple Cardiovascular: Regular rate, Regular rhythm Respiratory: - - Expiratory wheezes throughout Abdomen: Soft, Nontender Extremities: Negative for: Edema, Calf Tenderness Skin: Normal color Neurological: Alert, Oriented x3 Psychological: Normal affect Diagnostic/Tx/Re-eval Impressions Chest X-Ray 10/11/19 19:54 IMPRESSION: Bilateral ill-defined opacities may be secondary to underlying atelectasis and/or evolving pneumonia. Electronically Signed: Birttnee Rousseau MD at 20:13 EDT Tel , Service support , 10/11/19 19:54 Chest 1 View (Portable) [RAD] Stat Laboratory Results 10/11/19 10/11/19 19:15 19:15 WBC 9.6 RBC 3.95 L Hgb 12.2 Hct 37.5 MCV 94.9 MCH 30.9 MCHC 32.5 RDW Std Deviation 49.1 H RDW Coeff of Ermelinda 14.0 Plt Count 207 MPV 10.1 Immature Gran % (Auto) 0.600 Neut % (Auto) 82.1 H Lymph % (Auto) 7.1 L [place] % (Auto) 7.2 Eos % (Auto) 2.5 Baso % (Auto) 0.5 Absolute Neuts (auto) 7.9 H Absolute Lymphs (auto) 0.68 L Nucleated RBC % 0 Sodium 140 Potassium 4.4 Chloride 103 Carbon Dioxide 31.0 Anion Gap 6 BUN 12 Creatinine 0.57 Estim Creat Clear Calc 44.56 Est GFR (MDRD) Af Amer 134 Est GFR (MDRD) Non-Af 111 BUN/Creatinine Ratio 21.1 H Glucose 94 Calcium 8.6 Troponin I 0.064 H - EKG Initial EKG Interpretation: Sinus Rhythm - Sinus at 84. Lateral T wave flattening noted. - Medical Decision Making Patient was given DuoNeb followed by 2 albuterol treatments. She was given Solu-Medrol. On repeat evaluation she does feel significantly improved but does still have moderate wheezing. Her troponin is elevated, although not to the degree it was in June when she required a stent. At that time her cath showed single-vessel disease. Patient is not having chest pain. I recommended hospitalization overnight for cycling of enzymes and further breathing treatments. Patient will be given 3 additional baby aspirin at this time and will be given a dose of doxycycline for COPD flare. ED Disposition - Plan for ED Patient: Disposition: Acute Care Hospital [facility] Diagnosis: COPD exacerbation, Elevated troponin Referrals: Mike Asher MD [Primary Care Provider] -
[2019-10-11] MEDS: Ipratropium/Albuterol Sulfate 3 ML AMPUL.NEB INHALATION (19:15)
[2019-10-11] MEDS: MethylPREDNISolone 125 MG/2 ML Vial IV (19:31)
[2019-10-11] MEDS: Albuterol 2.5 MG/3 ML VIAL.NEB. INHALATION ×2 (19:32)
[2019-10-11 19:33] LABS: Absolute Lymphocyte Count 0.68 X10^3/uL (0.83-4.51); Absolute Neutrophil Count 7.9 X10^3/uL (2.0-7.7); Basophil# 0.05 X10^3/uL; Basophil% 0.5 % (0-1); Eosinophil# 0.24 X10^3/uL; Eosinophils% 2.5 % (0-5); Hematocrit 37.5 % (37-47); Hemoglobin 12.2 g/dL (12.0-15.0); Lymphocyte # 0.68 X10^3/ul (4.0); Lymphocyte % 7.1 % (19-41); Mean Corp Hgb Conc 32.5 g/dL (32-36); Mean Corpuscular Hgb 30.9 pg (27.0-32.0); Mean Corpuscular Volume 94.9 fL (81-99); Mean Platelet Vol. 10.1 fl (6.2-12.0); Monocyte# 0.69 X10^3/uL; Monocyte% 7.2 % (0-10); NRBC Flagged by Analyzer 0 % (0-5); Neutrophil % 82.1 % (47-70); Platelet Count 207 K/mm3 (150-450); RBC Distribution Width SD 49.1 fl (35.1-43.9); Red Blood Count 3.95 M/mm3 (4.2-5.4); White Blood Count 9.6 K/mm3 (4.4-11.0)
--- NOTE | 2019-10-11 19:54 | RAD_ITS ---
STUDY: X-RAY CHEST REASON FOR EXAM: Female, 73 years old. Increased SOB, HX COPD. Found by EMS to be 66% on room air TECHNIQUE: Single frontal view of the chest. COMPARISON: June 21, 2019 FINDINGS: There are bilateral ill-defined opacities. There is a left-sided central venous catheter in place terminating within the expected region of the superior vena cava. Normal size heart. Normal mediastinum and rah. Normal visualized pulmonary arteries. Normal visualized aortic arch and descending thoracic aorta. Normal visualized thoracic spine. Normal visualized ribs, clavicles, and shoulders. There is no demonstrated abnormality of the visualized soft tissue structures of the upper abdomen. RAD/Chest 1 View (Portable) IMPRESSION: Bilateral ill-defined opacities may be secondary to underlying atelectasis and/or evolving pneumonia. Electronically Signed: Brittnee Rousseau MD at 20:13 EDT Tel , Service support ,
[2019-10-11 20:00] LABS: Anion Gap 6 (5-15); BUN 12 mg/dL (7-18); BUN/Creat Ratio 21.1 RATIO (10-20); Calcium,Total 8.6 mg/dL (8.5-10.1); Chloride 103 mmol/L (98-107); Creatinine, Serum 0.57 mg/dL (0.55-1.02); EST Glomerular Filtration Rate 111 mL/min (>60); Est Glom Filt Rate - Afr Amer 134 mL/min (>60); Estimated Creatinine Clearance 44.56 ml/min; Glucose 94 mg/dL (74-106); Potassium 4.4 mmol/L (3.5-5.1); Sodium Level 140 mmol/L (136-145)
[2019-10-11] MEDS: Doxycycline 100 MG CAPSULE PO (22:49)
[2019-10-11] MEDS: Aspirin 81 MG TAB.CHEW 243 MG PO (22:49)
--- NOTE | 2019-10-11 22:59 | HP.PCM_ITS ---
Problem List (1) COPD exacerbation Status: Acute (2) Elevated troponin Status: Acute (3) COPD (chronic obstructive pulmonary disease) Status: Chronic Qualifiers: COPD type: unspecified COPD Qualified Code(s): J44.9 - Chronic obstructive pulmonary disease, unspecified (4) Acute hypoxemic respiratory failure Status: Acute (5) History of non-ST elevation myocardial infarction (NSTEMI) Status: Chronic (6) Acute systolic (congestive) heart failure Status: Chronic (7) Ischemic cardiomyopathy Status: Chronic (8) Atherosclerosis of coronary artery of [place] heart without angina pectoris Status: Chronic (9) History of coronary artery stent placement Status: Chronic Comment: [id number] LAD w/ 3.0 x 16 mm Synergy Stent (10) Nicotine dependence Status: Chronic (11) Breast cancer, right breast Status: Chronic Qualifiers: Breast location: upper outer quadrant of breast Estrogen receptor status: positive Patient sex: female Qualified Code(s): C50.411 - Malignant neoplasm of upper-outer quadrant of right female breast; Z17.0 - Estrogen receptor positive status [ER+] (12) Antineoplastic chemotherapy induced anemia Status: Chronic History of Present Illness Date of Admission: 10/11/19 Chief Complaint: shortness of breath The patient is a 73 year old F who states that she has been progressively short of breath over the past few months since she was last hospitalized with RSV and a non-STEMI. Patient has been on oxygen ranging from 1 to about 1-1/2 L. Today, she just felt very short of breath and I had been coughing and has been productive of phlegm but she does not expectorate it and swallows it. EMS arrived to her house and patient was noted to be 66%. They are concerned the patient may have too longer to being. Patient was brought here put on 2 L where her sats is remained in the mid 90s. Patient did have wheezing and did receive bronchodilators as well as methylprednisolone. Currently improved at this time. She denies any fever or chills, the cough is chronic and not new. [] Past Medical History Past Medical History (Chronic Problems): Chronic Problems (Last Reviewed 08/06/19 @ 16:06 by Sherine Black NP-C) COPD (chronic obstructive pulmonary disease) (Chronic) History of non-ST elevation myocardial infarction (NSTEMI) (Chronic 06/20/19) Acute systolic (congestive) heart failure (Chronic) Ischemic cardiomyopathy (Chronic) Atherosclerosis of coronary artery of [place] heart without angina pectoris (Chronic) History of coronary artery stent placement (Chronic) [id number] LAD w/ 3.0 x 16 mm Synergy Stent Nicotine dependence (Chronic) Breast cancer, right breast (Chronic) Antineoplastic chemotherapy induced anemia (Chronic) Medical History: Medical History (Last Reviewed 10/11/19 @ 23:[address] Guille Voss, DO) History of non-ST elevation myocardial infarction (NSTEMI) (Chronic) Onset Date: 06/20/19 I25.2 Acute systolic (congestive) heart failure (Chronic) I50.21 Ischemic cardiomyopathy (Chronic) I25.5 Atherosclerosis of coronary artery of [place] heart without angina pectoris (Chronic) I25.10 Nicotine dependence (Chronic) F17.200 Breast cancer, right breast (Chronic) C50.911 Antineoplastic chemotherapy induced anemia (Chronic) D64.81, T45.1X5A Abnormal breast biopsy R89.7 right breast 08/19/17 Asthma J45.909 Asthma with COPD J44.9 Breast cancer C50.919 Encounter for monitoring cardiotoxic drug therapy Z51.81, Z79.899 Fracture, skull S02.91XA History of alcohol abuse Z87.898 History of elevated glucose Z86.39 pre-diabetic Hypothyroidism (acquired) E03.9 Prediabetes R73.03 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 #27 [facility] 03/2018 port placement 10-28-17 Encounter for insertion of venous access port Z45.2 Hypokalemia due to loss of potassium E87.6 Ileus K56.7 Large bowel obstruction K56.609 Allergies No Known Allergies Allergy (Verified 10/11/19 19:21) Home Medications: Ambulatory Orders Medication Instructions Recorded Albuterol Aerosols [Ventolin 1 puff INHALATION DAILY 10/21/17 Aerosols] Albuterol Inhaler [Ventolin Hfa] 1 puff INHALATION DAILY 10/21/17 Fluticasone/Vilanterol [Breo 1 puff INHALATION QODAY 10/21/17 Ellipta 200-25 Mcg INH] Levothyroxine [Synthroid] 137 mcg PO DAILY 05/12/19 Tamoxifen Citrate [Nolvadex] 20 mg PO DAILY #90 tab 05/12/19 Aspirin [Aspirin, Baby] 81 mg PO DAILY@0800 #30 tab.chew 06/28/19 carvedilol 3.125 mg tablet 3.125 mg PO BID #30 tab 08/20/19 furosemide 20 mg tablet 20 mg PO DAILY #30 tab 08/20/19 Ticagrelor [Brilinta] 90 mg PO BID 10/11/19 Surgical History: Surgical History (Last Reviewed 10/11/19 @ 23:[address] 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 Guille Voss DO) Brother Cancer Father Lung cancer Aunt Cancer Review of Systems Constitutional: Denies: Anorexia, Fever Eyes: Denies: Blurred vision, Double vision HEENT: Denies: Head Aches, Sinus Congestion, Sinus Drainage Cardiovascular: Denies: Chest Pain, Palpitations Respiratory: Reports: Cough, Shortness of Breath Gastrointestinal: Denies: Abdominal Pain, Nausea, Vomiting Genitourinary: Denies: Dysuria Musculoskeletal: Denies: Joint Pain, Joint Tenderness Skin: Denies: Rash, Wounds Neurological: Denies: Numbness, Tingling, Focal weakness Comment: All review of systems were negative except as mentioned above in the history of present illness and the other review of systems. VTE Information - Inpt Only VTE Present on Admission: No VTE Mechan Device Prophylaxis: None VTE Pharm Prophylaxis ordered?: Yes Patient Problems: Active and Suspected Problems (Last Reviewed 08/06/19 @ 16:06 by JARON GonzalesC) COPD exacerbation (Acute) Elevated troponin (Acute) - Physical Exam Vitals/I&O's: Vital Signs Temp Pulse Resp BP Pulse Ox 36.6 C 73 17 104/65 94 10/11/19 22:52 10/11/19 22:52 10/11/19 22:52 10/11/19 22:52 10/11/19 22:52 Oxygen Flow Rate (L/min) 2 Oxygen Delivery Method Nasal Cannula Weight: 70.8 kg Body Mass Index (BMI) 26.8 General: Alert, Cooperative, No apparent distress, - - No respiratory distress. No conversational dyspnea. HEENT: Atraumatic, Normocephalic, - - No icterus Neck: No JVD, Negative Hepatojugular Reflux Lungs: Normal air movement, Wheezes Cardiovascular: Regular rate, No murmurs Abdomen: Bowel Sounds Present, Soft, Non Tender, Non-Distended Extremities: No edema, No Calf Tenderness Skin: No rashes, No breakdown, - - Port in the left upper chest with no erythema no ulceration Musculoskeletal: No Tenderness to Palpation of Joints or Extremities, No Muscle Wasting Neurological: Motor Exam 5/5 strength throughout, - - No clonus Psych/Mental Status: Normal Affect, Appropriate Laboratory Results 10/11/19 19:15: WBC 9.6, RBC 3.95 L, Hgb 12.2, Hct 37.5, MCV 94.9, MCH 30.9, MCHC 32.5, RDW Std Deviation 49.1 H, RDW Coeff of [place]rm[place] 14.0, Plt Count 207, MPV 10.1, Immature Gran % (Auto) 0.600, Neut % (Auto) 82.1 H, Lymph % (Auto) 7.1 L, [place] % (Auto) 7.2, Eos % (Auto) 2.5, Baso % (Auto) 0.5, Absolute Neuts (auto) 7.9 H, Absolute Lymphs (auto) 0.68 L, Nucleated RBC % 0 10/11/19 19:15: Sodium 140, Potassium 4.4, Chloride 103, Carbon Dioxide 31.0, Anion Gap 6, BUN 12, Creatinine 0.57, Estim Creat Clear Calc 44.56, Est GFR (MDRD) Af Amer 134, Est GFR (MDRD) Non-Af 111, BUN/Creatinine Ratio 21.1 H, Glucose 94, Calcium 8.6, Troponin I 0.064 H EKG reviewed and showed normal sinus rhythm with no acute changes. Chest x-ray reviewed and shows some chronic changes in the bases but no other acute process. Assessment/Plan All Active Problems (Last Reviewed 08/06/19 @ 16:06 by Sherine Black NP-C) COPD exacerbation (Acute) Elevated troponin (Acute) Acute hypoxemic respiratory failure (Acute 06/20/19) Chemotherapy-induced nausea (Resolved) Diarrhea (Resolved) Exertional dyspnea (Resolved) Nausea vomiting and diarrhea (Resolved) Perineal pain (Resolved) Sore throat (Resolved) 1. Acute exacerbation of COPD: Patient was noted to be 6 6% on 1/2 L at home. Currently 96% but with audible wheezing throughout. Plan is to continue with methylprednisolone and bronchodilators. Hold off on additional antibiotics at this time. Patient has a lot of chronic symptoms in no acute suspicion for COVID-19 at this time. 2. Elevated troponins: Suspect related with demand given the patient's hypoxia. Patient denies any chest pain at this time. We will cycle troponins. Less to go up considerably, would not pursue any additional cardiac work-up at this time. 3. Coronary artery disease: Patient has had recent intervention to her LAD. Continue with carvedilol, aspirin and ticagrelor. 4. VTE prophylaxis: Moderate risk. Low molecular weight heparin. 5. Advanced care planning: Discussed with the patient. Patient wishes to be DNR Comfort Care arrest. She is okay with intubation if it is short-term. Inpatient E&M: [id number] In Hosp L3
[2019-10-12] VITALS (14 sets, daily range): BP systolic 93–118; BP diastolic 50–79; PULSE 71–87; RESP 16–20; TEMP 36.8–37.3; O2SAT 92–97
[2019-10-12] MEDS: Tamoxifen 10 MG Tablet 20 MG PO ×2 (00:43→22:50)
[2019-10-12] MEDS: Albuterol 2.5 MG/3 ML VIAL.NEB. INHALATION ×3 (02:55→23:01)
[2019-10-12] MEDS: Levothyroxine 137 MCG Tablet PO (05:29)
[2019-10-12 05:40] LABS: Anion Gap 5 (5-15); BUN 13 mg/dL (7-18); BUN/Creat Ratio 19.8 RATIO (10-20); Calcium,Total 8.5 mg/dL (8.5-10.1); Chloride 102 mmol/L (98-107); Creatinine, Serum 0.66 mg/dL (0.55-1.02); EST Glomerular Filtration Rate 94 mL/min (>60); Est Glom Filt Rate - Afr Amer 114 mL/min (>60); Estimated Creatinine Clearance 44.56 ml/min; Glucose 195 mg/dL (74-106); Potassium 4.1 mmol/L (3.5-5.1); Sodium Level 137 mmol/L (136-145)
[2019-10-12] MEDS: Aspirin 81 MG TAB.CHEW PO (08:59)
[2019-10-12] MEDS: Carvedilol 3.125 MG TABLET PO ×2 (08:59→22:50)
[2019-10-12] MEDS: TICAGRELOR 90 MG TABLET PO ×2 (08:59→22:51)
[2019-10-12] MEDS: Furosemide 20 MG Tablet PO (09:00)
[2019-10-12] MEDS: Enoxaparin 40 MG/0.4 ML Syringe SC (09:00)
--- NOTE | 2019-10-12 10:41 | CASEMGMT ---
Assessment- SW completed assessment with patient as well as confirmed her address and phone numbers. Living situation- Patient lives with her in a 1 story home with 5 entry steps PCP: Dr Mike Asher Specialists: Dr Vyas-Pulmonology and Dr Paz-Cardiology Pharmacy: [facility] [place] DME: [employer] continuous 2L ADL's/IADL's: Patient said she is independent in all her activities of daily living. She drives, bathes herself, and manages her own medications. She assists in cooking and cleaning. Past SNF/rehab: None Past HH: Yes. She thinks [facility] HH LW: Yes and she is aware it is not on file at [facility] POA: Yes and she is aware it is not on file at [facility]. Her Pietro is her POA Plan: At this time the plan is for patient to go home. She does not anticipate any d/c needs. RN CM will continue to follow in the event this changes. Bridgett ZIEGLER PRODUCTION SUPPORT ANALYST
--- NOTE | 2019-10-12 11:25 | PN_ITS ---
<Christina Kim - Last Filed: 10/12/19 11:37> Patient Problems: Active and Suspected Problems (Last Reviewed 10/11/19 @ 23:[address] Guille Voss DO) COPD exacerbation (Acute) Elevated troponin (Acute) Subjective: Patient seen and examined. Reports improvement in breathing. Denies fever, chills. Nonproductive cough which patient reports is fairly chronic for her. - Physical Exam Vitals/I&O's: Vital Signs Temp Pulse Resp BP Pulse Ox 98.2 F 76 18 111/57 L 97 10/12/19 09:00 10/12/19 09:00 10/12/19 09:00 10/12/19 09:00 10/12/19 09:00 Oxygen Flow Rate (L/min) 2 Oxygen Delivery Method Nasal Cannula Weight: 151 lb 7.321 oz Body Mass Index (BMI) 25.9 Intake and Output for Last 24 Hours 10/10/19 10/11/19 10/12/19 23:59 23:59 23:59 Intake Total 240 / 240 120 / 120 Balance 240 / 240 120 / 120 General: Alert, Oriented x3, Cooperative HEENT: Atraumatic, PERRLA, EOMI, Normocephalic Neck: Supple, No JVD, Negative Carotid Bruits Lungs: Diminished, Wheezes Cardiovascular: Regular rate, Regular Rhythm, Normal S1, Normal S2, No murmurs Abdomen: Bowel Sounds Present, Soft, Non Tender, Non-Distended Extremities: No clubbing, No cyanosis, No edema, Capillary Refill Less than 3 Seconds Skin: No rashes, No breakdown Musculoskeletal: No Tenderness to Palpation of Joints or Extremities Neurological: Cranial nerves II-XII grossly intact, Neuro grossly intact Psych/Mental Status: Normal Affect, Appropriate Laboratory Results 10/11/19 19:15: WBC 9.6, RBC 3.95 L, Hgb 12.2, Hct 37.5, MCV 94.9, MCH 30.9, MCHC 32.5, RDW Std Deviation 49.1 H, RDW Coeff of Ermel[place] 14.0, Plt Count 207, MPV 10.1, Immature Gran % (Auto) 0.600, Neut % (Auto) 82.1 H, Lymph % (Auto) 7.1 L, [place] % (Auto) 7.2, Eos % (Auto) 2.5, Baso % (Auto) 0.5, Absolute Neuts (auto) 7.9 H, Absolute Lymphs (auto) 0.68 L, Nucleated RBC % 0 10/11/19 19:15: Sodium 140, Potassium 4.4, Chloride 103, Carbon Dioxide 31.0, Anion Gap 6, BUN 12, Creatinine 0.57, Estim Creat Clear Calc 44.56, Est GFR (MDRD) Af Amer 134, Est GFR (MDRD) Non-Af 111, BUN/Creatinine Ratio 21.1 H, Glucose 94, Calcium 8.6, Troponin I 0.064 H 10/11/19 23:27: Troponin I 0.119 H 10/12/19 02:30: Troponin I 0.166 H 10/12/19 05:10: Sodium 137, Potassium 4.1, Chloride 102, Carbon Dioxide 30.0, Anion Gap 5, BUN 13, Creatinine 0.66, Estim Creat Clear Calc 44.56, Est GFR (MDRD) Af Amer 114, Est GFR (MDRD) Non-Af 94, BUN/Creatinine Ratio 19.8, Glucose 195 H, Calcium 8.5, Troponin I 0.165 H Current Medications Acetaminophen (Tylenol) 650 mg PO Q6H PRN PRN PRN Reason: Pain Score 1-10/Temp > 100.7 F Albuterol Sulfate (Ventolin Aerosols) 2.5 mg INHALATION Q6HWA.RT [facility] Last Admin: 10/12/19 07:53 Dose: 2.5 mg Documented by: Albuterol Sulfate (Ventolin Aerosols) 2.5 mg INHALATION Q2H PRN PRN PRN Reason: SHORTNESS OF BREATH Last Admin: 10/12/19 02:55 Dose: 2.5 mg Documented by: Aspirin (Aspirin, Baby) 81 mg PO DAILY@0800 [facility] Last Admin: 10/12/19 08:59 Dose: 81 mg Documented by: Carvedilol (Coreg) 3.125 mg PO BID [facility] Last Admin: 10/12/19 08:59 Dose: 3.125 mg Documented by: Dextrose (D50w Syringe) 0 gm IV X1 PRN; Protocol PRN Reason: Hypoglycemia Enoxaparin Sodium (Lovenox) 40 mg SC DAILY [facility] Last Admin: 10/12/19 09:00 Dose: 40 mg Documented by: Furosemide (Lasix) 20 mg PO DAILY [facility] Last Admin: 10/12/19 09:00 Dose: 20 mg Documented by: Glucagon () 1 mg IM .X1 PRN PRN Reason: Hypoglycemia Sodium Chloride () 250 mls @ 15 mls/hr IV .[id number] PRN PRN Reason: Saline Flush Sodium Chloride () 250 mls @ 15 mls/hr IV .[id number] PRN PRN Reason: Additional IVPB Infusion Levothyroxine Sodium (Synthroid) 137 mcg PO DAILY@0600 [facility] Last Admin: 10/12/19 05:29 Dose: 137 mcg Documented by: Methylprednisolone (Solu-Medrol) 40 mg IV Q8 [facility] Last Admin: 10/12/19 05:30 Dose: 40 mg Documented by: Nitroglycerin (Nitrostat) 0.4 mg SUBLINGUAL Q5M PRN PRN Reason: CARDIAC/CHEST PAIN Ondansetron HCl (Zofran) 4 mg IV Q8H PRN PRN PRN Reason: NAUSEA/VOMITING Tamoxifen Citrate (Nolvadex) 20 mg PO QHS [facility] Last Admin: 10/12/19 00:43 Dose: 20 mg Documented by: Ticagrelor (Brilinta) 90 mg PO BID [facility] Last Admin: 10/12/19 08:59 Dose: 90 mg Documented by: Medical Necessity - Tobacco Use Smoking Status: Current every day smoker Tobacco Use: Cigarettes Assessment/Plan All Active Problems (Last Reviewed 10/11/19 @ 23:[address] Guille Voss, ) COPD exacerbation (Acute) Elevated troponin (Acute) Acute hypoxemic respiratory failure (Acute 06/20/19) Chemotherapy-induced nausea (Resolved) Diarrhea (Resolved) Exertional dyspnea (Resolved) Nausea vomiting and diarrhea (Resolved) Perineal pain (Resolved) Sore throat (Resolved) 1. Acute exacerbation of COPD with chronic hypoxic respiratory failure-chest x- ray admission shows bilateral opacities, probable atelectasis. Afebrile. No leukocytosis. Continue IV Solu-Medrol. Albuterol and DuoNeb aerosols. Continue supplement oxygen to maintain O2 at or above 90%. Patient wears 2 L nasal cannula at baseline. 2. Elevated troponin-suspect demand ischemia as a result of #1. Patient denies chest pain. No acute EKG changes. 3. CAD-angioplasty with drug-eluting stent proximal LAD June 2019. Continue aspirin, statin, Brilinta, carvedilol. 4. Ischemic cardiomyopathy-echocardiogram in June 2019 demonstrated an ejection fraction of 40%. Continue carvedilol, Lasix. 5. Right breast CA stage IIIb-follows with oncology, continue tamoxifen. 6. Hypothyroidism-continue Synthroid regimen. 7. Tobacco dependence-encourage cessation. DVT prophylaxis-heparin subcu This patient was seen by JERMAIN Escudero under the supervision of Dr. Calhoun. <Gia Calhoun - Last Filed: 10/12/19 12:02> - Physical Exam Vitals/I&O's: Vital Signs Temp Pulse Resp BP Pulse Ox 98.2 F 76 18 111/57 L 97 10/12/19 09:00 10/12/19 09:00 10/12/19 09:00 10/12/19 09:00 10/12/19 09:00 Oxygen Flow Rate (L/min) 2 Oxygen Delivery Method Nasal Cannula Weight: 151 lb 7.321 oz Body Mass Index (BMI) 25.9 Intake and Output for Last 24 Hours 10/10/19 10/11/19 10/12/19 23:59 23:59 23:59 Intake Total 240 / 240 120 / 120 Balance 240 / 240 120 / 120 Laboratory Results 10/11/19 19:15: WBC 9.6, RBC 3.95 L, Hgb 12.2, Hct 37.5, MCV 94.9, MCH 30.9, MCHC 32.5, RDW Std Deviation 49.1 H, RDW Coeff of [place]rm[place] 14.0, Plt Count 207, MPV 10.1, Immature Gran % (Auto) 0.600, Neut % (Auto) 82.1 H, Lymph % (Auto) 7.1 L, [place] % (Auto) 7.2, Eos % (Auto) 2.5, Baso % (Auto) 0.5, Absolute Neuts (auto) 7.9 H, Absolute Lymphs (auto) 0.68 L, Nucleated RBC % 0 10/11/19 19:15: Sodium 140, Potassium 4.4, Chloride 103, Carbon Dioxide 31.0, Anion Gap 6, BUN 12, Creatinine 0.57, Estim Creat Clear Calc 44.56, Est GFR (MDRD) Af Amer 134, Est GFR (MDRD) Non-Af 111, BUN/Creatinine Ratio 21.1 H, Glucose 94, Calcium 8.6, Troponin I 0.064 H 10/11/19 23:27: Troponin I 0.119 H 10/12/19 02:30: Troponin I 0.166 H 10/12/19 05:10: Sodium 137, Potassium 4.1, Chloride 102, Carbon Dioxide 30.0, Anion Gap 5, BUN 13, Creatinine 0.66, Estim Creat Clear Calc 44.56, Est GFR (MDRD) Af Amer 114, Est GFR (MDRD) Non-Af 94, BUN/Creatinine Ratio 19.8, Glucose 195 H, Calcium 8.5, Troponin I 0.165 H Current Medications Acetaminophen (Tylenol) 650 mg PO Q6H PRN PRN PRN Reason: Pain Score 1-10/Temp > 100.7 F Albuterol Sulfate (Ventolin Aerosols) 2.5 mg INHALATION Q2H PRN PRN PRN Reason: SHORTNESS OF BREATH Last Admin: 10/12/19 02:55 Dose: 2.5 mg Documented by: Albuterol/Ipratropium (Duoneb) 3 ml INHALATION Q6HWA.RT [facility] Aspirin (Aspirin, Baby) 81 mg PO DAILY@0800 [facility] Last Admin: 10/12/19 08:59 Dose: 81 mg Documented by: Carvedilol (Coreg) 3.125 mg PO BID [facility] Last Admin: 10/12/19 08:59 Dose: 3.125 mg Documented by: Dextrose (D50w Syringe) 0 gm IV X1 PRN; Protocol PRN Reason: Hypoglycemia Enoxaparin Sodium (Lovenox) 40 mg SC DAILY [facility] Last Admin: 10/12/19 09:00 Dose: 40 mg Documented by: Furosemide (Lasix) 20 mg PO DAILY [facility] Last Admin: 10/12/19 09:00 Dose: 20 mg Documented by: Glucagon () 1 mg IM .X1 PRN PRN Reason: Hypoglycemia Sodium Chloride () 250 mls @ 15 mls/hr IV .[id number] PRN PRN Reason: Saline Flush Sodium Chloride () 250 mls @ 15 mls/hr IV .[id number] PRN PRN Reason: Additional IVPB Infusion Levothyroxine Sodium (Synthroid) 137 mcg PO DAILY@0600 [facility] Last Admin: 10/12/19 05:29 Dose: 137 mcg Documented by: Methylprednisolone (Solu-Medrol) 40 mg IV Q8 [facility] Last Admin: 10/12/19 05:30 Dose: 40 mg Documented by: Nitroglycerin (Nitrostat) 0.4 mg SUBLINGUAL Q5M PRN PRN Reason: CARDIAC/CHEST PAIN Ondansetron HCl (Zofran) 4 mg IV Q8H PRN PRN PRN Reason: NAUSEA/VOMITING Tamoxifen Citrate (Nolvadex) 20 mg PO QHS [facility] Last Admin: 10/12/19 00:43 Dose: 20 mg Documented by: Ticagrelor (Brilinta) 90 mg PO BID [facility] Last Admin: 10/12/19 08:59 Dose: 90 mg Documented by: Assessment/Plan Patient seen by Christina Kim NP-C under my supervision Patient was admitted with a complaint of shortness of breath. When EMS got to her house she was saturating in the 60s. She had associated wheezing and cough which was dry but denied any fever or chills or exposure to anybody with COVID. Chest x-ray on admission showed bilateral opacities with probable atelectasis. She has been managed for acute exacerbation of COPD with acute on chronic hypoxic respiratory failure. She is on IV Solu-Medrol, and DuoNeb aerosols. Patient seen and examined this morning. Shortness of breath is better. She denies any wheezing, any cough or chest pain, any nausea vomiting or diarrhea. She still has difficulty completing sentences but she says is much better than when she came in. Review of systems otherwise negative. Initial troponin was 0.064 and trended up to a peak of 0.166. o/e: Vital Signs Temp Pulse Resp BP Pulse Ox 98.2 F 76 18 111/57 L 97 10/12/19 09:00 10/12/19 09:00 10/12/19 09:00 10/12/19 09:00 10/12/19 09:00 General: Alert, Oriented x3, Cooperative; still in mild respiratory distress HEENT: Atraumatic, PERRLA, EOMI, Normocephalic Neck: Supple, No JVD, Negative Carotid Bruits Lungs: Diminished, in mindl respiratory distress, unable to complete sentences. Cardiovascular: Regular rate, Regular Rhythm, Normal S1, Normal S2, No murmurs Abdomen: Bowel Sounds Present, Soft, Non Tender, Non-Distended Extremities: No clubbing, No cyanosis, No edema, Capillary Refill Less than 3 Seconds Skin: No rashes, No breakdown Musculoskeletal: No Tenderness to Palpation of Joints or Extremities Neurological: Cranial nerves II-XII grossly intact, Neuro grossly intact Psych/Mental Status: Normal Affect, Appropriate Plan is to continue IV Solu-Medrol and breathing treatment with DuoNeb's. Elevated troponin likely due to demand ischemia. Patient was seen in June 2019 for respiratory infection and also had troponin elevation. She had a cardiac cath which demonstrated a proximal high-grade left anterior descending artery lesion and had angioplasty. She is on aspirin, Brilinta and statin plus carvedilol. She is now on her baseline 2 L of oxygen. Titrate oxygen to maintain saturation above 90%. Will check respiratory panel and sputum culture, and start on IV levaquin. This has been her second exacerbation since June. Rest as per Christina Kim RN SURGERY ICU-C's note, which I have reviewed and endorsed. Inpatient E&M: [id number] [facility] [[email or web address]] Hosp L3
[2019-10-12] MEDS: Ipratropium/Albuterol Sulfate 3 ML AMPUL.NEB INHALATION ×2 (13:00→18:53)
[2019-10-12] MEDS: levoFLOXacin IV 750 MG/150 ML BAG 100 MG IV (13:48)
[2019-10-12] MEDS: Atorvastatin Calcium 40 MG Tablet PO (22:50)
[2019-10-12] MEDS: 0.9% Saline Lock 10 ML Syringe IV (22:51)
[2019-10-13] VITALS (9 sets, daily range): BP systolic 103–110; BP diastolic 59–70; PULSE 64–80; RESP 18–24; TEMP 36.8–36.9; O2SAT 91–94
[2019-10-13] MEDS: Albuterol 2.5 MG/3 ML VIAL.NEB. INHALATION ×2 (03:25→10:42)
[2019-10-13] MEDS: Levothyroxine 137 MCG Tablet PO (05:08)
[2019-10-13] MEDS: 0.9% Saline Lock 10 ML Syringe IV ×2 (05:09→12:46)
[2019-10-13] MEDS: Ipratropium/Albuterol Sulfate 3 ML AMPUL.NEB INHALATION ×2 (06:50→14:13)
[2019-10-13] MEDS: Aspirin 81 MG TAB.CHEW PO (07:43)
[2019-10-13 07:45] LABS: Absolute Lymphocyte Count 0.33 X10^3/uL (0.83-4.51); Absolute Neutrophil Count 17.2 X10^3/uL (2.0-7.7); Basophil# 0.01 X10^3/uL; Basophil% 0.1 % (0-1); Hematocrit 35.2 % (37-47); Hemoglobin 11.6 g/dL (12.0-15.0); Lymphocyte # 0.33 X10^3/ul (4.0); Lymphocyte % 1.8 % (19-41); Mean Corpuscular Hgb 30.8 pg (27.0-32.0); Mean Corpuscular Volume 93.4 fL (81-99); Monocyte% 2.2 % (0-10); NRBC Flagged by Analyzer 0 % (0-5); Neutrophil # 17.15 X10^3/uL (2.7-7.7); Neutrophil % 95.2 % (47-70); POSITIVE DIFFERENTIAL YES; Platelet Count 229 K/mm3 (150-450); RBC Distribution Width CV 14.6 % (11.6-14.6); RBC Distribution Width SD 50.4 fl (35.1-43.9); Red Blood Count 3.77 M/mm3 (4.2-5.4)
[2019-10-13 07:51] LABS: Differential Indicated SCAN CRITERIA MET
[2019-10-13 07:57] LABS: Anion Gap 6 (5-15); BUN 17 mg/dL (7-18); BUN/Creat Ratio 21.4 RATIO (10-20); Calcium,Total 8.5 mg/dL (8.5-10.1); Chloride 105 mmol/L (98-107); EST Glomerular Filtration Rate 76 mL/min (>60); Est Glom Filt Rate - Afr Amer 91 mL/min (>60); Glucose 161 mg/dL (74-106); Potassium 3.9 mmol/L (3.5-5.1); Sodium Level 141 mmol/L (136-145)
[2019-10-13 09:24] LABS: Differential Comment SCANNED
[2019-10-13] MEDS: Carvedilol 3.125 MG TABLET PO (09:56)
[2019-10-13] MEDS: TICAGRELOR 90 MG TABLET PO (09:56)
[2019-10-13] MEDS: Enoxaparin 40 MG/0.4 ML Syringe SC (09:56)
--- NOTE | 2019-10-13 11:13 | DCINST_ITS ---
- Discharge Diagnoses Current Active Problems: Current Active and Chronic Problems (Last Reviewed 10/11/19 @ 23:[address] Guille Voss DO) COPD exacerbation (Acute) Elevated troponin (Acute) You will use the following diet at home:: Cardiac Discharge Activity: Return to Normal Activity Call your doctor if you observe: Shortness of breath, Dizziness, Fainting spells, Chest pain Allergies/Adverse Reactions: Allergies No Known Allergies Allergy (Verified 10/11/19 19:21) Medications to take at Discharge Albuterol Aerosols [Ventolin Aerosols] 1 puff INHALATION DAILY 10/21/17 Albuterol Inhaler [Ventolin Hfa] 1 puff INHALATION DAILY 10/21/17 Fluticasone/Vilanterol [Breo Ellipta 200-25 Mcg INH] 1 puff INHALATION QODAY 10/21/17 Levothyroxine [Synthroid] 137 mcg PO DAILY 05/12/19 Tamoxifen Citrate [Nolvadex] 20 mg PO DAILY #90 tab 05/12/19 Aspirin [Aspirin, Baby] 81 mg PO DAILY@0800 #30 tab.chew 06/28/19 carvedilol 3.125 mg tablet 3.125 mg PO BID #30 tab 08/20/19 furosemide 20 mg tablet 20 mg PO DAILY #30 tab 08/20/19 Atorvastatin Calcium 40 mg PO DAILY 10/11/19 Ticagrelor [Brilinta] 90 mg PO BID 10/11/19 Prednisone See Taper PO DAILY #30 tab 10/13/19 levoFLOXacin tablet [Levaquin tablet] 750 mg PO DAILY #5 tab 10/13/19 The following prescriptions were given: levoFLOXacin tablet [Levaquin tablet] 750 mg PO DAILY #5 tab Transmission Status: Pending to [facility] Prednisone See Taper PO DAILY #30 tab Transmission Status: Pending to [facility] Primary Care Physician: Mike Asher MD [Primary Care Provider] - Please follow up with your Primary Care Physician in: 1 Week Test Results: Test results from this visit will be discussed in further detail at your follow- up appointment, if applicable. Please Follow Up With: Ruiz Vyas DO When: 10/28/2019 Please Follow Up With: Thomas Paz MD When: As scheduled 10/29/2019 Proposed Discharge Date: 10/13/19
--- NOTE | 2019-10-13 11:30 | PCM.DC.SUM ---
<Christina Kim - Last Filed: 10/13/19 11:37> Discharge Date and Diagnosis Date of Admission: 10/11/19 Date of Discharge: 10/13/19 - Primary Discharge Diagnosis Active and Suspected Problems (Last Reviewed 10/11/19 @ 23:[address] Guille Voss, ) 1. Acute exacerbation of COPD with chronic hypoxic respiratory failure 2. Elevated troponin-suspect demand ischemia as a result of #1. 3. CAD-angioplasty with drug-eluting stent proximal LAD June 2019. Continue. 4. Ischemic cardiomyopathy 5. Right breast CA stage IIIb 6. Hypothyroidism 7. Tobacco dependence - Secondary Discharge Diagnosis Chronic Problems (Last Reviewed 10/11/19 @ 23:[address] Guille Voss DO) COPD (chronic obstructive pulmonary disease) (Chronic) History of non-ST elevation myocardial infarction (NSTEMI) (Chronic 06/20/19) Acute systolic (congestive) heart failure (Chronic) Ischemic cardiomyopathy (Chronic) Atherosclerosis of coronary artery of standing rock heart without angina pectoris (Chronic) History of coronary artery stent placement (Chronic) [id number] LAD w/ 3.0 x 16 mm Synergy Stent Nicotine dependence (Chronic) Breast cancer, right breast (Chronic) Antineoplastic chemotherapy induced anemia (Chronic) Hospital Course and Treatment Imaging Results: Diagnostic Data Chest X-Ray 10/11/19 19:54 IMPRESSION: Bilateral ill-defined opacities may be secondary to underlying atelectasis and/or evolving pneumonia. Electronically Signed: Brittnee Rousseau MD at 20:13 EDT Tel , Service support , Operations: None Procedures: None Summary of Care Provided: The patient is a 73 year old F admitted 10/11/2019 due to shortness of breath. 1. Acute exacerbation of COPD with chronic hypoxic respiratory failure-chest x-ray admission shows bilateral opacities, probable atelectasis. Afebrile. No leukocytosis. Continue supplement oxygen to maintain O2 at or above 90%. Patient wears 2 L nasal cannula at baseline. Patient has nebulizer at home, continue PRN breathing treatments. Respiratory panel negative. Treat with course of Levaquin empirically. Prednisone taper at discharge. Patient has upcoming follow-up with Dr. Vyas, pulmonary medicine 10/28/2019. 2. Elevated troponin-suspect demand ischemia as a result of #1. Patient denies chest pain. No acute EKG changes. 3. CAD-angioplasty with drug-eluting stent proximal LAD June 2019. Continue aspirin, statin, Brilinta, carvedilol. Patient has follow-up with cardiology 10/29/2019. 4. Ischemic cardiomyopathy-echocardiogram in June 2019 demonstrated an ejection fraction of 40%. Continue carvedilol, Lasix. 5. Right breast CA stage IIIb-follows with oncology, continue tamoxifen. 6. Hypothyroidism-continue Synthroid regimen. 7. Tobacco dependence-encourage cessation. General: Alert, Oriented x3, Cooperative HEENT: Atraumatic, PERRLA, EOMI, Normocephalic Neck: Supple, No JVD, Negative Carotid Bruits Lungs: Diminished, Wheezes Cardiovascular: Regular rate, Regular Rhythm, Normal S1, Normal S2, No murmurs Abdomen: Bowel Sounds Present, Soft, Non Tender, Non-Distended Extremities: No clubbing, No cyanosis, No edema, Capillary Refill Less than 3 Seconds Skin: No rashes, No breakdown Musculoskeletal: No Tenderness to Palpation of Joints or Extremities Neurological: Cranial nerves II-XII grossly intact, Neuro grossly intact Psych/Mental Status: Normal Affect, Appropriate Patient seen and examined prior to discharge. Physical assessment as noted above. Patient is stable for discharge with follow up recommendations as noted above. This patient was seen by JERMAIN Escudero under the supervision of Dr. Calhoun. - Physical Exam Vitals/I&O's: Vital Signs Temp Pulse Resp BP Pulse Ox 98.3 F 80 18 110/60 91 10/13/19 09:53 10/13/19 10:42 10/13/19 10:42 10/13/19 09:53 10/13/19 09:53 Oxygen Flow Rate (L/min) 2 Oxygen Delivery Method Nasal Cannula Weight: 151 lb 7.321 oz Body Mass Index (BMI) 25.9 Intake and Output for Last 24 Hours 10/11/19 10/12/19 10/13/19 23:59 23:59 23:59 Intake Total 240 / 240 1250 / 1250 Output Total 3 / 3 Balance 240 / 240 1247 / 1247 Microbiology Past 72 Hours 10/12/19 13:00 Mucosa - Nose Respiratory Panel (PCR) - Final Laboratory Results 10/13/19 07:36: WBC 18.0 H, RBC 3.77 L, Hgb 11.6 L, Hct 35.2 L, MCV 93.4, MCH 30.8, MCHC 33.0, RDW Std Deviation 50.4 H, RDW Coeff of Ermelinda 14.6, Plt Count 229, MPV 10.0, Immature Gran % (Auto) 0.700, Neut % (Auto) 95.2 H, Lymph % (Auto) 1.8 L, Throckmorton % (Auto) 2.2, Eos % (Auto) 0.0, Baso % (Auto) 0.1, Absolute Neuts (auto) 17.2 H, Absolute Lymphs (auto) 0.33 L, Nucleated RBC % 0, Differential Comment SCANNED 10/13/19 07:36: Sodium 141, Potassium 3.9, Chloride 105, Carbon Dioxide 30.0, Anion Gap 6, BUN 17, Creatinine 0.80, Estim Creat Clear Calc 55.70, Est GFR (MDRD) Af Amer 91, Est GFR (MDRD) Non-Af 76, BUN/Creatinine Ratio 21.4 H, Glucose 161 H, Calcium 8.5 Current Medications Acetaminophen (Tylenol) 650 mg PO Q6H PRN PRN PRN Reason: Pain Score 1-10/Temp > 100.7 F Albuterol Sulfate (Ventolin Aerosols) 2.5 mg INHALATION Q2H PRN PRN PRN Reason: SHORTNESS OF BREATH Last Admin: 10/13/19 10:42 Dose: 2.5 mg Documented by: Albuterol/Ipratropium (Duoneb) 3 ml INHALATION Q6HWA.RT [facility] Last Admin: 10/13/19 06:50 Dose: 3 ml Documented by: Aspirin (Aspirin, Baby) 81 mg PO DAILY@0800 [facility] Last Admin: 10/13/19 07:43 Dose: 81 mg Documented by: Atorvastatin Calcium (Lipitor) 40 mg PO QHS [facility] Last Admin: 10/12/19 22:50 Dose: 40 mg Documented by: Carvedilol (Coreg) 3.125 mg PO BID [facility] Last Admin: 10/13/19 09:56 Dose: 3.125 mg Documented by: Dextrose (D50w Syringe) 0 gm IV X1 PRN; Protocol PRN Reason: Hypoglycemia Enoxaparin Sodium (Lovenox) 40 mg SC DAILY [facility] Last Admin: 10/13/19 09:56 Dose: 40 mg Documented by: Furosemide (Lasix) 20 mg PO DAILY [facility] Last Admin: 10/13/19 09:56 Dose: Not Given Documented by: Glucagon () 1 mg IM .X1 PRN PRN Reason: Hypoglycemia Sodium Chloride () 250 mls @ 15 mls/hr IV .[id number] PRN PRN Reason: Saline Flush Sodium Chloride () 250 mls @ 15 mls/hr IV .[id number] PRN PRN Reason: Additional IVPB Infusion Levofloxacin (Levaquin Iv) 750 mg in 150 mls @ 100 mls/hr IV Q48 [facility] Last Infusion: 10/12/19 15:35 Dose: Infused Documented by: Levothyroxine Sodium (Synthroid) 137 mcg PO DAILY@0600 [facility] Last Admin: 10/13/19 05:08 Dose: 137 mcg Documented by: Methylprednisolone (Solu-Medrol) 40 mg IV Q8 [facility] Last Admin: 10/13/19 05:08 Dose: 40 mg Documented by: Nitroglycerin (Nitrostat) 0.4 mg SUBLINGUAL Q5M PRN PRN Reason: CARDIAC/CHEST PAIN Ondansetron HCl (Zofran) 4 mg IV Q8H PRN PRN PRN Reason: NAUSEA/VOMITING Sodium Chloride () 10 - 40 ml IV UD PRN PRN Reason: SALINE FLUSH Last Admin: 10/13/19 05:09 Dose: 10 ml Documented by: Tamoxifen Citrate (Nolvadex) 20 mg PO QHS [facility] Last Admin: 10/12/19 22:50 Dose: 20 mg Documented by: Ticagrelor (Brilinta) 90 mg PO BID [facility] Last Admin: 10/13/19 09:56 Dose: 90 mg Documented by: Discharge Diet: No Restrictions Discharge Activity: Return to Normal Activity Call your doctor if you observe: Shortness of breath, Dizziness, Fainting spells, Chest pain Home Medications: Medications to take at Discharge Albuterol Aerosols [Ventolin Aerosols] 1 puff INHALATION DAILY 10/21/17 Albuterol Inhaler [Ventolin Hfa] 1 puff INHALATION DAILY 10/21/17 Fluticasone/Vilanterol [Breo Ellipta 200-25 Mcg INH] 1 puff INHALATION QODAY 10/21/17 Levothyroxine [Synthroid] 137 mcg PO DAILY 05/12/19 Tamoxifen Citrate [Nolvadex] 20 mg PO DAILY #90 tab 05/12/19 Aspirin [Aspirin, Baby] 81 mg PO DAILY@0800 #30 tab.chew 06/28/19 carvedilol 3.125 mg tablet 3.125 mg PO BID #30 tab 08/20/19 furosemide 20 mg tablet 20 mg PO DAILY #30 tab 08/20/19 Atorvastatin Calcium 40 mg PO DAILY 10/11/19 Ticagrelor [Brilinta] 90 mg PO BID 10/11/19 Prednisone See Taper PO DAILY #30 tab 10/13/19 levoFLOXacin tablet [Levaquin tablet] 750 mg PO DAILY #5 tab 10/13/19 Following Prescrptions Were Given to Patient: levoFLOXacin tablet [Levaquin tablet] 750 mg PO DAILY #5 tab Transmission Status: Received by [facility] Prednisone See Taper PO DAILY #30 tab Transmission Status: Received by [facility] Primary Care Physician: Mike Asher MD [Primary Care Provider] - Please follow up with your Primary Care Physician in: 1 Week Please Follow Up With: Ruiz Vyas DO When: 10/28/2019 Please Follow Up With: Thomas Paz MD When: As scheduled 10/29/2019 Disposition: Home Minutes spent on discharge:: 35 Patient Condition:: Stable Medical Necessity - Tobacco Use Smoking Status: Current every day smoker Tobacco Use: Cigarettes Meaningful Use Info Meaningful Use Diagnoses (Choose all that apply): None applicable <OdalisgenesisGia Hubera - Last Filed: 10/13/19 15:58> Discharge Date and Diagnosis - Secondary Discharge Diagnosis Chronic Problems (Last Reviewed 10/11/19 @ 23:[address] Guille Voss DO) COPD (chronic obstructive pulmonary disease) (Chronic) History of non-ST elevation myocardial infarction (NSTEMI) (Chronic 06/20/19) Acute systolic (congestive) heart failure (Chronic) Ischemic cardiomyopathy (Chronic) Atherosclerosis of coronary artery of standing rock heart without angina pectoris (Chronic) History of coronary artery stent placement (Chronic) UWM-IAN-Vexn LAD w/ 3.0 x 16 mm Synergy Stent Nicotine dependence (Chronic) Breast cancer, right breast (Chronic) Antineoplastic chemotherapy induced anemia (Chronic) Hospital Course and Treatment Summary of Care Provided: Patient seen by Christina ALY under my supervision The patient is a 73 year old F admitted with a complaint of shortness of breath. She was found to be saturating in the 60s by the paramedics when she was picked up from her house and she had assisted wheezing and cough which was dry. She had no fever or chills or exposure to anyone with COVID. Chest x-ray on admission showed bilateral opacities with probable atelectasis. She was admitted and managed for acute on chronic hypoxic respiratory failure and COPD exacerbation. She was started on IV Solu-Medrol and breathing treatments with duo nebs. Respiratory panel was negative. She was started on IV Levaquin. Patient shortness of breath improved and she came down to her baseline. She was discharged on 10/13/2019 with a prescription for p.o. Levaquin. She is to follow-up with her primary care doctor within 1 week. She was also discharged with a prescription for p.o. prednisone taper. She is take p.o. levofloxacin 750 mg daily for 5 days. She is also to follow-up with her ornamental painter on 10/28/2019 at the scheduled appointment. Patient seen and examined. She has no complaints. Review of symptoms otherwise negative. Labs and vitals reviewed. Home medication reviewed and reconciled. o/e: Vital Signs Temp Pulse Resp BP Pulse Ox 98.3 F 75 19 H 106/59 L 94 10/13/19 11:53 10/13/19 11:53 10/13/19 14:13 10/13/19 11:53 10/13/19 11:53 [] General: Alert, Oriented x3, Cooperative; HEENT: Atraumatic, PERRLA, EOMI, Normocephalic Neck: Supple, No JVD, Negative Carotid Bruits Lungs: Diminished breath sounds bibasally, no wheezes or crackles. on 2L of oxygen, which is her baseline. Cardiovascular: Regular rate, Regular Rhythm, Normal S1, Normal S2, No murmurs Abdomen: Bowel Sounds Present, Soft, Non Tender, Non-Distended Extremities: No clubbing, No cyanosis, No edema, Capillary Refill Less than 3 Seconds Skin: No rashes, No breakdown Musculoskeletal: No Tenderness to Palpation of Joints or Extremities Neurological: Cranial nerves II-XII grossly intact, Neuro grossly intact Psych/Mental Status: Normal Affect, Appropriate Plan is for dc home. Continue using her 2 L of oxygen by nasal cannula at home for shortness of breath as needed. Rest as per Christina Kim [employer]IC[employer] USE MEDICAL COORDINATOR-C's note, which I have reviewed and endorsed. - Physical Exam Vitals/I&O's: Vital Signs Temp Pulse Resp BP Pulse Ox 98.3 F 75 18 106/59 L 94 10/13/19 11:53 10/13/19 11:53 10/13/19 11:53 10/13/19 11:53 10/13/19 11:53 Oxygen Flow Rate (L/min) 2 Oxygen Delivery Method Nasal Cannula Weight: 151 lb 7.321 oz Body Mass Index (BMI) 25.9 Intake and Output for Last 24 Hours 10/11/19 10/12/19 10/13/19 23:59 23:59 23:59 Intake Total 240 / 240 1250 / 1250 400 / 400 Output Total 3 / 3 Balance 240 / 240 1247 / 1247 400 / 400 Microbiology Past 72 Hours 10/12/19 13:00 Mucosa - Nose Respiratory Panel (PCR) - Final Laboratory Results 10/13/19 07:36: WBC 18.0 H, RBC 3.77 L, Hgb 11.6 L, Hct 35.2 L, MCV 93.4, MCH 30.8, MCHC 33.0, RDW Std Deviation 50.4 H, RDW Coeff of Ermelinda 14.6, Plt Count 229, MPV 10.0, Immature Gran % (Auto) 0.700, Neut % (Auto) 95.2 H, Lymph % (Auto) 1.8 L, Throckmorton % (Auto) 2.2, Eos % (Auto) 0.0, Baso % (Auto) 0.1, Absolute Neuts (auto) 17.2 H, Absolute Lymphs (auto) 0.33 L, Nucleated RBC % 0, Differential Comment SCANNED 10/13/19 07:36: Sodium 141, Potassium 3.9, Chloride 105, Carbon Dioxide 30.0, Anion Gap 6, BUN 17, Creatinine 0.80, Estim Creat Clear Calc 55.70, Est GFR (MDRD) Af Amer 91, Est GFR (MDRD) Non-Af 76, BUN/Creatinine Ratio 21.4 H, Glucose 161 H, Calcium 8.5 Current Medications Acetaminophen (Tylenol) 650 mg PO Q6H PRN PRN PRN Reason: Pain Score 1-10/Temp > 100.7 F Albuterol Sulfate (Ventolin Aerosols) 2.5 mg INHALATION Q2H PRN PRN PRN Reason: SHORTNESS OF BREATH Last Admin: 10/13/19 10:42 Dose: 2.5 mg Documented by: Albuterol/Ipratropium (Duoneb) 3 ml INHALATION Q6HWA.RT [facility] Last Admin: 10/13/19 06:50 Dose: 3 ml Documented by: Aspirin (Aspirin, Baby) 81 mg PO DAILY@0800 [facility] Last Admin: 10/13/19 07:43 Dose: 81 mg Documented by: Atorvastatin Calcium (Lipitor) 40 mg PO QHS [facility] Last Admin: 10/12/19 22:50 Dose: 40 mg Documented by: Carvedilol (Coreg) 3.125 mg PO BID [facility] Last Admin: 10/13/19 09:56 Dose: 3.125 mg Documented by: Dextrose (D50w Syringe) 0 gm IV X1 PRN; Protocol PRN Reason: Hypoglycemia Enoxaparin Sodium (Lovenox) 40 mg SC DAILY [facility] Last Admin: 10/13/19 09:56 Dose: 40 mg Documented by: Furosemide (Lasix) 20 mg PO DAILY [facility] Last Admin: 10/13/19 09:56 Dose: Not Given Documented by: Glucagon () 1 mg IM .X1 PRN PRN Reason: Hypoglycemia Sodium Chloride () 250 mls @ 15 mls/hr IV .[id number] PRN PRN Reason: Saline Flush Sodium Chloride () 250 mls @ 15 mls/hr IV .[id number] PRN PRN Reason: Additional IVPB Infusion Levofloxacin (Levaquin Iv) 750 mg in 150 mls @ 100 mls/hr IV Q48 [facility] Last Infusion: 10/12/19 15:35 Dose: Infused Documented by: Levofloxacin (Levaquin Iv) 750 mg in 150 mls @ 100 mls/hr IV X1 ONE Stop: 10/13/19 13:59 Last Admin: 10/13/19 12:46 Dose: 100 mls/hr Documented by: Levothyroxine Sodium (Synthroid) 137 mcg PO DAILY@0600 [facility] Last Admin: 10/13/19 05:08 Dose: 137 mcg Documented by: Methylprednisolone (Solu-Medrol) 40 mg IV Q8 [facility] Last Admin: 10/13/19 12:46 Dose: 40 mg Documented by: Nitroglycerin (Nitrostat) 0.4 mg SUBLINGUAL Q5M PRN PRN Reason: CARDIAC/CHEST PAIN Ondansetron HCl (Zofran) 4 mg IV Q8H PRN PRN PRN Reason: NAUSEA/VOMITING Sodium Chloride () 10 - 40 ml IV UD PRN PRN Reason: SALINE FLUSH Last Admin: 10/13/19 12:46 Dose: 10 ml Documented by: Tamoxifen Citrate (Nolvadex) 20 mg PO QHS [facility] Last Admin: 10/12/19 22:50 Dose: 20 mg Documented by: Ticagrelor (Brilinta) 90 mg PO BID [facility] Last Admin: 10/13/19 09:56 Dose: 90 mg Documented by: Inpatient E&M: [id number] [facility]
--- NOTE | 2019-10-13 12:00 | PHA.DC.MC ---
Pharmacy Service has performed discharge medication reconciliation and counseling for this patient. 1. LEVOFLOXACIN 750MG PO DAILY X 5 DAYS 2. PREDNISONE 40MG PO DAILY X 3 DAYS, THEN 30MG X 3 DAYS, THEN 20MG X 3 DAYS, THEN 10MG X 3 DAYS The patient's discharge medication list was reviewed for discrepancies and discrepancies were resolved. Home Medications Albuterol Aerosols [Ventolin Aerosols] 1 puff INHALATION DAILY 10/21/17 Albuterol Inhaler [Ventolin Hfa] 1 puff INHALATION DAILY 10/21/17 Fluticasone/Vilanterol [Breo Ellipta 200-25 Mcg INH] 1 puff INHALATION QODAY 10/21/17 Levothyroxine [Synthroid] 137 mcg PO DAILY 05/12/19 Tamoxifen Citrate [Nolvadex] 20 mg PO DAILY #90 tab 05/12/19 Aspirin [Aspirin, Baby] 81 mg PO DAILY@0800 #30 tab.chew 06/28/19 carvedilol 3.125 mg tablet 3.125 mg PO BID #30 tab 08/20/19 furosemide 20 mg tablet 20 mg PO DAILY #30 tab 08/20/19 Atorvastatin Calcium 40 mg PO DAILY 10/11/19 Ticagrelor [Brilinta] 90 mg PO BID 10/11/19 Prednisone See Taper PO DAILY #30 tab 10/13/19 levoFLOXacin tablet [Levaquin tablet] 750 mg PO DAILY #5 tab 10/13/19 The patient was counseled on the following discharge medications and changes in medications for homegoing were reviewed. The Reason for Use, instructions for use, and potential side effects were reviewed for all new medications. The patient's questions regarding all of their medications were answered. The patient was able to verbally demonstrate an understanding of their discharge medications.
[2019-10-13] MEDS: levoFLOXacin IV 750 MG/150 ML BAG 100 MG IV (12:46)
--- NOTE | 2019-10-14 15:30 | CASEMGMT ---
AIME CANTU Discharge Follow-up Phone Call: SHADI: 10 Strata: 3 Call Date: 10/14/2019 Discharge Date: 10/13/2019 Time of Call: 1530 Duration: 1 min Admitting Diagnosis: COPD Exacerbation AIME CANTU attempted to complete follow-up phone call after recent hospitalization. No answer, voice message left with return contact information. Follow-up appts scheduled prior to discharge.
== END 2019-10-13 14:55 | disposition home or self-care (01) | DRG 191 ==
LOC: ED 22:21 → PCU 23:31
PROVIDERS: Emergency Provider Emergency Medicine; Visit Provider Student in an Organized Health Care Education/Training Program
DX: J44.1 Chronic obstructive pulmonary disease with (acute) exacerbation (principal); J96.11 Chronic respiratory failure with hypoxia; I24.8 Other forms of acute ischemic heart disease; I50.22 Chronic systolic (congestive) heart failure; C50.411 Malignant neoplasm of upper-outer quadrant of right female breast; Z17.0 Estrogen receptor positive status [ER+]; I25.5 Ischemic cardiomyopathy; I25.10 Atherosclerotic heart disease of native coronary artery without angina pectoris; E03.9 Hypothyroidism, unspecified; R73.03 Prediabetes; F17.210 Nicotine dependence, cigarettes, uncomplicated; Z79.02 Long term (current) use of antithrombotics/antiplatelets; Z79.82 Long term (current) use of aspirin; Z79.899 Other long term (current) drug therapy; I25.2 Old myocardial infarction; Z85.3 Personal history of malignant neoplasm of breast; Z95.5 Presence of coronary angioplasty implant and graft; Z90.11 Acquired absence of right breast and nipple
CPT/HCPCS: 36415; 71045; 80048; 84484; 85025; 87633; 93005; 94640; 94667; 94668; 96374; 97802; 99251; 99285; 99406; J7040; A4216; G0463

== ENCOUNTER → 2019-11-10 | Outpatient (CLI) | payer MEDICARE, SELFPAY ==
[2018-05-12 09:29] VITALS: BMI 27.5
[2019-10-11 23:15] VITALS: BMI 25.9
[2019-11-10 11:39] VITALS: BMI 26.9
--- NOTE | 2019-11-10 12:14 | BI_ITS ---
MAMMOGRAPHY - UNILATERAL DIAGNOSTIC: LEFT BREAST REASON FOR EXAM: Female, 73 years old. Prior right mastectomy with chemotherapy and radiation therapy. PERTINENT HISTORY: Personal history of breast cancer. TECHNIQUE: Digital unilateral breast gómez (3D mammographic acquisition) in the CC and MLO projections. 2-D mediolateral oblique (MLO) and craniocaudad (CC) views of both breasts were obtained. CAD: Full Field Digital Mammography with Computer Added Detection was performed. COMPARISON: Comparison is made with prior outside examination dated August 18, 2018.. FINDINGS: Breast Composition: The breasts are heterogeneously dense, which may obscure small masses. There are no dominant masses or suspicious calcifications. There is a 5 mm well-defined nodule in the central aspect of the right breast. Correlation with ultrasound is recommended. Stable benign-appearing bilateral axillary lymph nodes. No other significant abnormalities are identified. There has been no significant change since the prior study. BI/DIAG MAMM W/CAD, UNILAT IMPRESSION: Stable unilateral diagnostic mammogram. Correlation with ultrasound of the left breast is recommended. ASSESSMENT CATEGORY: BIRADS Category 0: Incomplete. Need additional imaging evaluation. A letter regarding these results will be sent to the patient by the facility within 30 days. Approximately 10% of breast cancers are not detected by mammography. A normal mammogram should not delay biopsy of a clinically suspicious abnormality. Electronically Signed: Chang Shepard, at 13:51 EDT , Service support ,
--- NOTE | 2019-11-10 13:02 | US_ITS ---
STUDY: ULTRASOUND BREAST - LEFT REASON FOR EXAM: Female, 73 years old. Abnormal screening mammogram. TECHNIQUE: Axial and longitudinal images of the LEFT breast were performed with a high resolution ultrasound transducer. # OF IMAGES: 19 COMPARISON: Comparison is made with prior mammogram done earlier in the day. FINDINGS: LEFT Breast: The inferior outer quadrant of the left breast was examined by ultrasound. There is a 7 mm x 8 mm x 4 mm cyst at the 4:00 position of the breast at 6 cm from the nipple. There is also evidence of a 3 mm x 3 mm x 3 mm cyst at the 3:00 position of the breast at 4 cm from the nipple. US/Breast Limited Unilateral IMPRESSION: 2 small cysts are seen in the mid inferior aspect of the left breast. ASSESSMENT CATEGORY: BIRADS Category 2: Benign. A letter regarding these results will be sent to the patient by the facility within 30 days. Electronically Signed: Chang Shepard, at 14:58 EDT , Service support ,
--- NOTE | 2019-11-10 13:51 | ECHODONC_ITS ---
Reason For Study: DYSPNEA Procedure This was a 2D Doppler, Color Flow transthoracic echocardiogram. The study was technically difficult. Exam performed in department. Left Ventricle Normal LV size. Left ventricular systolic function is normal. The estimated ejection fraction is 58 %. No regional wall motion abnormalities noted. Right Ventricle Normal RV size. Normal systolic function. Atria Normal left atrium. Normal right atrium. Mitral Valve Normal mitral valve. Tricuspid Valve Normal tricuspid valve. Mild tricuspid valve insufficiency. Aortic Valve Normal aortic valve. Pulmonic Valve Normal pulmonic valve. Great Vessels Normal aortic root. Pericardium/Pleural No pericardial effusion. MMode/2D Measurements & Calculations LVIDd: 4.2 cm IVSd: 0.90 cm Ao root diam: 2.7 cm LVIDs: 2.5 cm LVPWd: 1.0 cm RVDd: 3.7 cm FS: 41.3 % LAV(MOD-bp): 45.1 ml LA A4 area: 15.5 cm2 LA dimension(2D): 3.6 cm LAV(MOD-bp) Indexed: 25.0 ml/m2 LAV(MOD-sp2): 45.5 ml LAV(MOD-sp4): 42.7 ml RA A4 area: 8.4 cm2 Time Measurements MV dec time: 0.23 sec Doppler Measurements & Calculations MV E max jefry: 74.4 cm/sec Lat Peak E' Jefry: 10.6 cm/sec Med Peak E' Jefry: 7.3 cm/sec MV A max jefry: 77.5 cm/sec E/E' lat: 7.0 E/E' med: 10.2 MV E/A: 0.96 Ao V2 max: 164.5 cm/sec LV V1 max: 126.7 cm/sec TR max jefry: 206.9 cm/sec Ao max P.8 mmHg LV V1 max P.4 mmHg TR max P.1 mmHg Interpretation Summary Normal LV size. Left ventricular systolic function is normal. The estimated ejection fraction is 58 %. Compared to previous study, the left ventricular systolic function has improved.. Ordering Physician: Thomas Paz Referring Physician: DR ANDREI PACHECO Performed By: Amelia Obrien, ALEXANDRA, RVT
== END | disposition home or self-care (01) ==
DX: C50.811 Malignant neoplasm of overlapping sites of right female breast (principal); I34.0 Nonrheumatic mitral (valve) insufficiency; R06.00 Dyspnea, unspecified; R06.02 Shortness of breath; Z17.0 Estrogen receptor positive status [ER+]
CPT/HCPCS: 76642; 77062; 77065; 93306; 93356; G0279

== ENCOUNTER → 2019-11-17 14:49 | Outpatient (CLI) | payer MEDICARE, SELFPAY ==
[2018-05-12 09:29] VITALS: BMI 27.5
[2019-11-17 13:54] VITALS: BMI 26.9
[2019-11-17 14:58] LABS: Hematocrit 37.1 % (37-47); Hemoglobin 11.8 g/dL (12.0-15.0); Mean Corp Hgb Conc 31.8 g/dL (32-36); Mean Corpuscular Hgb 31.1 pg (27.0-32.0); Mean Corpuscular Volume 97.6 fL (81-99); Mean Platelet Vol. 9.5 fl (6.2-12.0); Platelet Count 245 K/mm3 (150-450); RBC Distribution Width CV 15.9 % (11.6-14.6); RBC Distribution Width SD 57.5 fl (35.1-43.9); White Blood Count 5.5 K/mm3 (4.4-11.0)
--- NOTE | 2019-11-17 15:10 | RAD_ITS ---
STUDY: X-RAY CHEST REASON FOR EXAM: Female, 73 years old. sob TECHNIQUE: Frontal and lateral views of the chest. COMPARISON: 10/11/2019 FINDINGS: Left chest wall port. The lungs are clear and expanded. There is no demonstrated pleural abnormality. Normal size heart. Normal mediastinum and rah. Normal visualized pulmonary arteries. Normal visualized aortic arch and descending thoracic aorta. Normal visualized thoracic spine. Normal visualized ribs, clavicles, and shoulders. There is no demonstrated abnormality of the visualized soft tissue structures of the upper abdomen. RAD/Chest PA and Lateral IMPRESSION: No acute pulmonary findings. Electronically Signed: Thomas Cisneros MD at 15:25 EDT Tel , Service support ,
[2019-11-17 15:14] LABS: Anion Gap 6 (5-15); BUN 12 mg/dL (7-18); BUN/Creat Ratio 21.8 RATIO (10-20); Calcium,Total 8.6 mg/dL (8.5-10.1); Chloride 99 mmol/L (98-107); Creatinine, Serum 0.55 mg/dL (0.55-1.02); EST Glomerular Filtration Rate 115 mL/min (>60); Est Glom Filt Rate - Afr Amer 140 mL/min (>60); Glucose 74 mg/dL (74-106); Potassium 4.3 mmol/L (3.5-5.1); Sodium Level 138 mmol/L (136-145)
[2019-11-17 15:23] LABS: BNP,B-Type NATRIURETIC PEPTIDE 22.8 pg/mL (0-100)
== END ==
PROVIDERS: Referring Provider Nurse Practitioner Acute Care; Visit Provider Nurse Practitioner Acute Care
DX: R06.02 Shortness of breath (principal); R06.2 Wheezing
CPT/HCPCS: 36591; 71046; 80048; 83880; 85027; A4216

== ENCOUNTER → 2019-12-14 09:53 | Outpatient (CLI) | payer MEDICARE, SELFPAY ==
[2018-05-12 09:29] VITALS: BMI 27.5
[2019-10-11 23:15] VITALS: BMI 25.9
[2019-11-17 13:54] VITALS: BMI 26.9
--- NOTE | 2019-12-14 14:16 | PFT ---
INTRODUCTION: The patient is a 73-year-old female that presents for pulmonary function studies secondary to a diagnosis of COPD. Respiratory therapy reports good patient effort. Bronchodilators were used during testing. INTERPRETATION: Forced expiration spirometry demonstrates the presence of a very severe large airways obstructive ventilatory defect. There was a significant response to aerosolized bronchodilators noted. Spirograms are of fair quality and do not plateau indicating slow emptying of the lungs. Body plethysmography was performed and reveals a decreased TLC to 3.54 L, 74% of predicted, indicative of a mild restrictive ventilatory impairment. Diffusing capacity by single breath CO was severely reduced at 37% of predicted. IMPRESSION: Partially reversible very severe mixed ventilatory defect with symmetric reduction in diffusing capacity.
== END ==
PROVIDERS: Referring Provider Internal Medicine Critical Care Medicine; Visit Provider Internal Medicine Critical Care Medicine
DX: J44.9 Chronic obstructive pulmonary disease, unspecified (principal); J84.82 Adult pulmonary Langerhans cell histiocytosis
CPT/HCPCS: 94060; 94726; 94729

== ENCOUNTER → 2019-12-17 09:51 | Outpatient (CLI) | payer MEDICARE, SELFPAY ==
[2018-05-12 09:29] VITALS: BMI 27.5
[2019-10-11 23:15] VITALS: BMI 25.9
[2019-11-17 13:54] VITALS: BMI 26.9
[2019-12-17 10:56] VITALS: PULSE 78; PULSE 79; PULSE 83; PULSE 84; PULSE 86; PULSE 87; PULSE 94; O2SAT 2; O2SAT 85; O2SAT 88; O2SAT 89; O2SAT 90; O2SAT 91; O2SAT 92
--- NOTE | 2019-12-17 11:01 | CPS ---
STARTED HER ON ROOM AIR BUT AT 145 HER SPO2 WAS 85% PUT ON O2 AT 2LPM FOR THE REST OF THE TEST. SHE RESTED FROM 145 TO.3 MINS,
--- NOTE | 2019-12-19 08:23 | PCM.PSN.6M ---
PSN 6 Minute Walk Test - 6 Minute Walk Test 6 Minute Walk Test: 6 Minute Walk Test PSN:6-Minute Walk Test Start: 12/17/19 10:56 Freq: Status: Active Protocol: [id number].6MINW Document 12/17/19 10:56 FR (Rec: 12/17/19 11:04 FR [id number]) 6 Minute Walk Test Date Performed 12/17/19 Time Performed 10:00 Height 5 ft 4 in Weight: 160 lb Weight in Pounds 160.[address]: Ruiz Vyas Assistive device used: None Pre-test Oxygen Delivery Method Room Air Pulse Ox (%) 91 Pulse Rate (60-100 beats/min) 78 Dyspnea Jalyn Scale (0-10) 4 Exertion Jalyn Scale (6-20) 10 1st minute Oxygen Delivery Method Room Air Pulse Ox (%) 88 Pulse Rate (60-100 beats/min) 83 2nd minute Oxygen Flow Rate (L/min) (L/min) 2 Oxygen Delivery Method Nasal Cannula Pulse Ox (%) 85 Pulse Rate (60-100 beats/min) 84 Reported Symptoms Increased Work of Breathing 3rd minute Oxygen Flow Rate (L/min) (L/min) 2 Oxygen Delivery Method Nasal Cannula Pulse Ox (%) 92 Pulse Rate (60-100 beats/min) 79 4th minute Oxygen Flow Rate (L/min) (L/min) 2 Oxygen Delivery Method Nasal Cannula Pulse Ox (%) 90 Pulse Rate (60-100 beats/min) 84 5th minute Oxygen Flow Rate (L/min) (L/min) 2 Oxygen Delivery Method Nasal Cannula Pulse Ox (%) 90 Pulse Rate (60-100 beats/min) 86 Reported Symptoms Increased Work of Breathing 6th minute Oxygen Flow Rate (L/min) (L/min) 2 Oxygen Delivery Method Nasal Cannula Pulse Ox (%) 89 Pulse Rate (60-100 beats/min) 87 Dyspnea Jalyn Scale (0-10) 6 Exertion Jalyn Scale (6-20) 12 Post-test Oxygen Delivery Method Nasal Cannula Pulse Ox (%) 2 Pulse Rate (60-100 beats/min) 94 Dyspnea Jalyn Scale (0-10) 76 Full Laps Walked 14 Partial Lap, Number of Tiles Walked 25 Total Distance Walked (ft) 851 12/17/19 11:01 Cardiopulmonary Services by Felicia Bardales STARTED HER ON ROOM AIR BUT AT 145 HER SPO2 WAS 85% PUT ON O2 AT 2LPM FOR THE REST OF THE TEST. SHE RESTED FROM 145 TO.3 MINS, Initialized on 12/17/19 11:01 - END OF NOTE - Interpretation Interpretation: The patient ambulated 851 feet over the course of 6 minutes beginning on room air without assistive devices. The patient did take a greater than 1 minute break during testing. Pretesting oxygen saturation was noted to be 91% on room air. With ambulation, the ana oxygen saturation was 85%. 2 L/min of supplemental oxygen was applied and the patient was able to complete the remainder of the test while maintaining appropriate oxygen saturations. - Recommendations Recommendations: 2 L/min of supplemental oxygen should be utilized with exertion.
== END ==
PROVIDERS: Referring Provider Internal Medicine Critical Care Medicine; Visit Provider Internal Medicine Critical Care Medicine
DX: J44.9 Chronic obstructive pulmonary disease, unspecified (principal)
CPT/HCPCS: 94618

== ENCOUNTER → 2020-01-12 13:16 | Outpatient (CLI) | payer MEDICARE, SELFPAY ==
[2018-05-12 09:29] VITALS: BMI 27.5
[2019-11-10 11:39] VITALS: BMI 26.9
[2019-11-17 13:54] VITALS: BMI 26.9
--- NOTE | 2020-01-12 13:18 | CT_ITS ---
STUDY: CT CHEST WITH CONTRAST REASON FOR EXAM: Female, 74 years old. Hx of rt breast cancer with mastectomy, chemo and radiation. Also removal of rt axial lymph node. Prior appendectomy, heart stent and lumbar surgery. Symptoms of COPD RADIATION DOSAGE (If Supplied By Facility): CTDIvol = ( 12.00 ) mGy, DLP = ( 1103.34 ) mGycm TECHNIQUE: Transaxial imaging was performed following intravenous administration of IV 100mL Isovue-300. Multiplanar coronal and sagittal images were reformatted. Individualized dose optimization techniques were used for this CT. COMPARISON: Comparison is made with prior examination of 01/04/2019. FINDINGS: A left-sided portacatheter is seen. The patient is status post right mastectomy. Emphysematous changes. Bullous formation in the upper lobes. Stable increased markings in the lingular segment of the left upper lobe as well as in the left lower lung suggestive of scarring. Stable subcentimeters nodules in the right midlung. There is no demonstrated pleural abnormality. Normal heart and pericardium. Normal mediastinum. Normal hilar regions. Normal enhanced pulmonary arteries. There is atherosclerotic calcification of the aortic arch . There are mild degenerative changes of the thoracic spine. There is no demonstrated abnormality of the visualized upper abdomen. CT/Chest WITH Contrast IMPRESSION: Stable examination. Electronically Signed: Chang Shepard, at 14:39 EDT , Service support ,
--- NOTE | 2020-01-12 13:18 | CT_ITS ---
STUDY: CT ABDOMEN AND PELVIS WITHOUT CONTRAST REASON FOR EXAM: Female, 74 years old. Hx of rt breast cancer with mastectomy, chemo and radiation. Also removal of rt axial lymph node. Prior appendectomy, heart stent and lumbar surgery. Symptoms of COPD RADIATION DOSAGE (If Supplied By Facility): CTDIvol = ( 12.00 ) mGy, DLP = ( 1103.34 ) mGycm TECHNIQUE: Transaxial images were obtained from the dome of the diaphragm to the symphysis pubis without oral contrast, and without intravenous contrast. Sagittal and coronal images were reconstructed. Individualized dose optimization techniques were used for this CT. COMPARISON: Comparison is made with prior examination dated 01/04/2019. FINDINGS: Stable mild increased fibrotic changes at the left lung base. Coronary artery calcification. Normal liver. Normal gallbladder and extrahepatic biliary system. Normal spleen. Normal pancreas. Normal bilateral adrenal glands. Normal right kidney. Normal left kidney. Normal visualized stomach. Stable 2.8 cm x 1.8 cm intraluminal lipoma within a small bowel loop in the right lower quadrant as seen on axial image #86. This is unchanged. Normal colon. The patient is status post appendectomy. There is diffuse atherosclerotic calcification of the abdominal aorta, without a demonstrated aneurysm. Normal inferior vena cava. Stable small scattered subcentimeter mesenteric and retroperitoneal lymph nodes. Normal urinary bladder. There is a left-sided inguinal hernia containing adipose tissue. Stable mild to moderate degree of disc space narrowing at the L5-S1 level. CT/Abdomen/Pelvis W IV Cont ONLY IMPRESSION: Stable examination. Stable intraluminal lipoma in the bowel loop in the right lower quadrant. Electronically Signed: Chang Shepard, at 14:36 EDT , Service support ,
[2020-01-12 13:31] LABS: CREATININE FINGERSTICK 0.8 mg/dL (0.55-1.02); EGFR FINGERSTICK > 60.0000 mL/min (>60)
[2020-01-12] MEDS: 0.9% Saline Lock 10 ML Syringe IV (13:55)
== END ==
PROVIDERS: Referring Provider Internal Medicine Medical Oncology; Visit Provider Internal Medicine Medical Oncology
DX: C50.411 Malignant neoplasm of upper-outer quadrant of right female breast (principal)
CPT/HCPCS: 71260; 74177; Q9967; A4216

== ENCOUNTER → 2020-09-21 10:24 | Outpatient (CLI) | payer MEDICARE, SELFPAY ==
[2020-07-26 12:02] VITALS: BMI 27.8
[2020-09-21 09:57] VITALS: BMI 28.0
--- NOTE | 2020-09-21 10:30 | VDLE_ITS ---
Reason For Study: Swelling Procedure LEFT This is a venous duplex using B-mode, color CFV is compressible, spontaneous, phasic, flow and spectral Doppler. competent, and demonstrates normal Exam performed in department. augmentation. A preliminary report was called and/or faxed FV is compressible, spontaneous, phasic, to Ilana. competent and demonstrates normal augmentation. POP V is compressible, spontaneous, phasic, competent and demonstrates normal augmentation. T/P Trunk is compressible. PTV is compressible. LT PerV is compressible. Acute superficial vein thrombosis is noted in the left GSV from prox calf to distal calf. VL/Venous Duplex US, Unilateral Interpretation Summary There is no evidence of left lower extremity deep vein thrombosis. Superficial venous thrombophlebitis left great saphenous vein from the proximal to distal calf Ordering Physician: Carlos Bradley Referring Physician: Mike Lino Performed By: Arleen Yo RVT and Student
== END ==
PROVIDERS: PCP Family Medicine; Visit Provider Surgery
DX: M79.89 Other specified soft tissue disorders (principal)
CPT/HCPCS: 93971

== ENCOUNTER → 2020-11-10 11:11 | Outpatient (CLI) | payer MEDICARE, SELFPAY ==
[2020-07-26 12:02] VITALS: BMI 27.8
[2020-07-26 12:04] VITALS: BMI 27.8
[2020-09-21 09:57] VITALS: BMI 28.0
--- NOTE | 2020-11-10 11:11 | BI_ITS ---
MAMMOGRAPHY - UNILATERAL SCREENING: LEFT BREAST REASON FOR EXAM: Female, 74 years old. Routine annual screening examination (unilateral). PERTINENT HISTORY: Personal history of breast cancer. Prior right mastectomy with radiation and chemotherapy. Remote left excisional breast biopsy. TECHNIQUE: Digital unilateral breast grazyna (3D mammographic acquisition) in the CC and MLO projections. 2-D mediolateral oblique (MLO) and craniocaudad (CC) views of both breasts were obtained. CAD: Full Field Digital Mammography with Computer Added Detection was performed. COMPARISON: Comparison is made with prior study dated 11/10/2019. FINDINGS: Breast Composition: The breasts are heterogeneously dense, which may obscure small masses. There are no dominant masses or suspicious calcifications. The previously seen 5 mm well-defined nodule in the central deep aspect of the left breast is not seen at this time. No other significant abnormalities are identified. BI/SCREEN MAMM (CAD) W/GRAZYNA UNI L IMPRESSION: Stable unilateral screening mammogram. Yearly follow-up mammogram recommended. (A) ASSESSMENT CATEGORY: BIRADS Category 2: Benign. A letter regarding these results will be sent to the patient by the facility within 30 days. Approximately 10% of breast cancers are not detected by mammography. A normal mammogram should not delay biopsy of a clinically suspicious abnormality. [id number] Electronically Signed: Chang Shepard MD at 12:40 EDT , Service support ,
== END ==
PROVIDERS: PCP Family Medicine; Referring Provider Student in an Organized Health Care Education/Training Program; Visit Provider Student in an Organized Health Care Education/Training Program
DX: Z12.31 Encounter for screening mammogram for malignant neoplasm of breast (principal); Z85.3 Personal history of malignant neoplasm of breast; Z90.11 Acquired absence of right breast and nipple; Z92.21 Personal history of antineoplastic chemotherapy; Z92.3 Personal history of irradiation
CPT/HCPCS: 77063; 77067

== ENCOUNTER → 2021-01-10 12:47 | Outpatient (CLI) | payer MEDICARE, SELFPAY ==
[2020-07-26 12:02] VITALS: BMI 27.8
[2020-09-21 09:57] VITALS: BMI 28.0
--- NOTE | 2021-01-10 12:54 | CT_ITS ---
STUDY: CT CHEST WITH CONTRAST REASON FOR EXAM: Female, 75 years old. HX OF BREAST CANCER WITH CHEMO AND RADIATION RADIATION DOSAGE (If Supplied By Facility): CTDIvol = ( 14.73 ) mGy, DLP = ( 357.08 ) mGycm TECHNIQUE: Transaxial imaging was performed following intravenous administration of IV 100mL Isovue-370. Multiplanar coronal and sagittal images were reformatted. Individualized dose optimization techniques were used for this CT. COMPARISON: Comparison is made with prior examination 01/12/2020. FINDINGS: A left-sided portacatheter is seen with the tip in the superior vena cava. Small bilateral benign appearing axillary lymph nodes. The patient is status post right mastectomy. There is hyperinflation of the lungs consistent with chronic obstructive lung disease (COPD). Stable bullous formation in the upper lobes worse on the right side. Stable subcentimeters nodular densities in the right midlung. Stable scarring in the left lower lobe. There is no demonstrated pleural abnormality. There are calcifications of the coronary arteries. Normal mediastinum. Normal hilar regions. Stable mild enlargement of the main pulmonary artery. Normal aorta arch and descending thoracic aorta. There are mild degenerative changes of the thoracic spine. There is no demonstrated abnormality of the visualized upper abdomen. CT/Chest WITH Contrast IMPRESSION: Stable examination. No acute abnormality is seen. Electronically Signed: Chang Shepard MD at 15:24 EDT , Service support ,
[2021-01-10 13:21] LABS: CREATININE FINGERSTICK 0.8 mg/dL (0.55-1.02); EGFR FINGERSTICK > 60.0000 mL/min (>60)
[2021-01-10] MEDS: 0.9% Saline Lock 10 ML Syringe IV (13:40)
== END ==
PROVIDERS: PCP Family Medicine; Referring Provider Internal Medicine Medical Oncology; Visit Provider Internal Medicine Medical Oncology
DX: C50.911 Malignant neoplasm of unspecified site of right female breast (principal)
CPT/HCPCS: 71260; Q9967; A4216

== ENCOUNTER 2021-06-10 10:01 | Inpatient (IN) | payer MEDICARE, SELFPAY ==
[2020-07-26 12:02] VITALS: BMI 27.8
[2021-06-10] VITALS (13 sets, daily range): BP systolic 113–136; BP diastolic 50–99; PULSE 69–117; RESP 14–40; TEMP 36.6–36.9; O2SAT 88–100; BMI 28.5; BMI 27.5
--- NOTE | 2021-06-10 10:16 | EKG12_ITS ---
Test Reason : SOB Blood Pressure : / mmHG Vent. Rate : 080 BPM Atrial Rate : 080 BPM P-R Int : 138 ms QRS Dur : 074 ms QT Int : 370 ms P-R-T Axes : 083 091 067 degrees QTc Int : 426 ms Normal sinus rhythm Poor R wave Progression Confirmed by KAUR SALDIVAR, FIOR ([id number]), video editor MANPREET CORTEZ ([id number]) on 06/12/2021 1:36:20 PM Referred By: BELEN Confirmed By:FIOR DIETRICH MD
--- NOTE | 2021-06-10 10:17 | EDS_ITS ---
HPI History of Present Illness Chief Complaint: Shortness of Breath Detail of Chief Complaint: This of breath worse since last night Informant: patient Narrative Narrative: Patient presents to the emergency department with increasing shortne ss of breath since last night. Patient states that she has been having trouble breathing for months and has been on steroids. She has history of COPD and is normally on 2 L of home oxygen. She denies chest pain. She denies significant cough. She denies fever. She has been vaccine against COVID but does not have the booster. Patient denies recent travel or surgery. Per EMS her O2 sats were in the 70s prior to breathing treatments. She complains of exertional dyspnea. PE Risk Factors: Positive for OCP + Smoking + > 35 Prior similar symptoms: Yes PFSH PFS Medical History (Updated 06/10/21 @ 11:[address] Alcides Gregory, DO) Abnormal breast biopsy Acute hypoxemic respiratory failure (06/20/19) Antineoplastic chemotherapy induced anemia Asthma Asthma with COPD Atherosclerosis of coronary artery of [place] heart without angina pectoris Breast cancer Breast cancer, right breast Chronic systolic (congestive) heart failure COPD (chronic obstructive pulmonary disease) Elevated troponin (10/11/19) Encounter for insertion of venous access port Encounter for monitoring cardiotoxic drug therapy Foot swelling Fracture, skull History of alcohol abuse History of elevated glucose History of non-ST elevation myocardial infarction (NSTEMI) (10/11/19) Hypokalemia due to loss of potassium Hypothyroidism (acquired) Ileus Ischemic cardiomyopathy Large bowel obstruction Nicotine dependence port placement Prediabetes 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 Home Medications albuterol sulfate 1 puff INHALATION DAILY 10/21/17 [History Last Taken 10/11/19] albuterol sulfate 1 puff INHALATION DAILY 10/21/17 [History Last Taken 10/11/19] fluticasone furoate-vilanterol 1 puff INHALATION QODAY 10/21/17 [History Last Taken 10/09/19] levothyroxine 137 mcg PO DAILY 05/12/19 [History Last Taken 10/11/19] aspirin 81 mg PO DAILY@0800 #30 tab.chew 06/28/19 [Rx Last Taken 10/11/19] tamoxifen 20 mg PO DAILY 90 Days #90 tablet 07/03/20 [Rx Last Taken Unknown] fluticasone furoate 200 mcg-vilanterol 25 mcg/dose inhalation powder 1 inh INHALATION DAILY #60 each 09/20/20 [Rx Last Taken Unknown] tiotropium bromide 2.5 mcg/actuation mist for inhalation 2 puff INHALATION DAILY #4 gm 09/20/20 [Rx Last Taken Unknown] clopidogrel 75 mg tablet 75 mg PO DAILY #90 tablet 11/24/20 [Rx Last Taken Unknown] lisinopril 5 mg tablet 5 mg PO DAILY #90 tab 01/22/21 [Rx Last Taken Unknown] carvedilol 3.125 mg tablet 3.125 mg PO BID #180 tab 02/14/21 [Rx Last Taken Unknown] cholecalciferol (vitamin D3) 125 mcg (5,000 unit) capsule 125 mcg PO DAILY 02/23/21 [History Last Taken Unknown] esomeprazole magnesium 20 mg capsule,delayed release 20 mg PO DAILY cap 02/23/21 [History Last Taken Unknown] atorvastatin 40 mg tablet 40 mg PO DAILY #90 tablet 05/28/21 [Rx Last Taken Unknown] Allergy/AdvReac Type Severity Reaction Status Date / Time No Known Allergies Allergy Verified 06/10/21 10:07 Family History Brother Cancer Father Lung cancer Aunt Cancer Mother Asthma Thyroid disorder Heart disease Surgical History H/O toe surgery H/O ultrasound guided needle biopsy History of appendectomy History of back surgery History of coronary artery stent placement (06/25/19) History of modified radical mastectomy of right breast Social History Smoking Status: Current every day smoker tobacco type: cigarettes ROS ROS ED Constitutional Constitutional ED: Reports systems reviewed and no addt'l complaints, except as documented; Denies body ache(s), change in weight or chills Eyes Eyes: Denies acute decrease in peripheral vision, change in vision, double vision or loss of vision ENT ENT ED: Reports none; Denies ear pain, lip swelling, loss taste/smell, neck pain, otalgia or sore throat Cardiovascular Cardiovascular: Reports none; Denies abdominal pain, chest pain with activity, leg edema, lightheadedness, palpitations, rapid heart rate or syncope Respiratory/Chest Respiratory/Chest: Reports none and dyspnea; Denies change in mental status, dry cough, hemoptysis, shortness of breath at rest or shortness of breath with exertion Gastrointestinal Gastrointestinal: Reports none; Denies abdominal pain, change in stool character, diarrhea, hematemesis, hematochezia, melena, rectal bleeding or vomiting Genitourinary Genitourinary ED: Reports none; Denies abdominal discomfort, anuria, dysuria, genital pain or polyuria Musculoskeletal Musculoskeletal: Reports none; Denies arthralgias, back pain, difficulty walking, extremity pain, muscle weakness or myalgias Integumentary Reports none; Denies abscess or rash Neurologic Neurologic: Reports none; Denies abnormal gait, confusion, focal weakness, frequent falls, headache(s), loss of vision, numbness, paresthesias, radicular pain, vertigo or weakness Psychiatric Psychiatric: Reports systems reviewed and no addt'l complaints, except as documented and none; Denies behavioral changes, confusion, difficulty concentrating, hallucinations, suicidal ideation, tactile hallucinations or visual hallucinations Endocrine Endocrinology: Denies none, cold intolerance, excessive sweating, fatigue or heat intolerance Hematologic/Lymphatic Hematologic/Lymphatic: Reports none; Denies anemia, easy bleeding or easy bruising Allergic/Immunologic Allergic/Immunologic ED: Denies as per HPI, none, lip swelling, mouth swelling, throat swelling, tongue swelling or hives EXAM Physical Exam Const Vital Signs: 06/10/21 10:02 06/10/21 10:09 06/10/21 10:10 Temperature 97.9 F 97.9 F Temperature Source Temporal Temporal Pulse Rate 117 H 117 H Respiratory Rate 25 H 25 H Respiratory Effort Short of Breath Respiratory Pattern Tachypnea Blood Pressure 136/99 H 136/99 H Blood Pressure Mean 111 111 Pulse Ox 88 88 Oxygen Delivery Method Nasal Cannula Nasal Cannula Oxygen Flow Rate (L/min) 5 5 06/10/21 10:31 06/10/21 11:02 Temperature Temperature Source Pulse Rate 80 83 Respiratory Rate 30 H 22 H Respiratory Effort Respiratory Pattern Blood Pressure 113/68 Blood Pressure Mean 83 Pulse Ox 100 93 Oxygen Delivery Method Nasal Cannula Nasal Cannula Oxygen Flow Rate (L/min) 5 5 Positive well nourished and well developed General Appearance ED: well developed and NAD HEENT Reports TM's clear and moist mucous membranes normocephalic and atraumatic; Negative for trauma or tenderness Tympanic Membrane ED: Yes TM's clear Eyes PERRL and EOMs intact bilaterally General Eye ED: Negative for pale conjunctiva or scleral icterus Neck no lymphadenopathy, supple and no JVD General: Negative for tenderness Chest Wall inspection of chest normal and palpation of chest normal Chest: Negative for tenderness Resp normal respiratory effort and clear to auscultation bilaterally Resp Narrative: Patient with tachypnea and conversational dyspnea. Patient with some accessory muscle use noted. Effort and Inspection: Negative for respiratory distress or pain with movement Auscultation: wheezes and diminished lung sounds; Negative for rhonchi Cardio regular rate, regular rhythm, S1 normal heart sound, S2 normal heart sound and no murmurs Rate: tachycardic Peripheral Pulses: pulses 2+ throughout GI normal to inspection, nondistended, normoactive bowel sounds, soft to palpation, non-tender, non-distended and no masses Back/Spine no CVA tenderness and no thoracic nor lumbar tenderness Extremity normal to inspection General Extremety ED: Negative for edema General Extremity: Negative for edema Neuro oriented x3, CN's II-XII intact bilaterally, no sensory deficits noted and gait normal Sensorium / Orientation: awake, alert, oriented to person, oriented to place and oriented to time Motor Exam: strength 5/5 throughout and strength abnormal Psych mental status grossly normal Skin no rashes or lesions noted and no wounds MDM MDM MDM Narrative Medical decision making narrative: IV line established on arrival. Patient initially was bumped up to 6 L of nasal cannula O2. She received albuterol aerosols as well as an Atrovent aerosol. She was started on Solu-Medrol 125 mg IV. Lab Data Attestation: I reviewed the patient's lab results. Labs: Laboratory Results - last 24 hr 06/10/21 06/10/21 06/10/21 10:14 10:14 10:14 WBC 10.1 RBC 4.21 Hgb 13.3 Hct 41.0 MCV 97.4 MCH 31.6 MCHC 32.4 RDW Std Deviation 57.0 H RDW Coeff of [place] 16.0 H Plt Count 222 MPV 9.6 Immature Gran % (Auto) 0.500 Neut % (Auto) 85.7 H Lymph % (Auto) 6.9 L [place] % (Auto) 6.4 Eos % (Auto) 0.3 Baso % (Auto) 0.2 Absolute Neuts (auto) 8.6 H Absolute Lymphs (auto) 0.70 L Nucleated RBC % 0 D-Dimer Quant (PE/DVT) 0.48 Sodium 136 Potassium 4.1 Chloride 95 L Carbon Dioxide 34.0 H Anion Gap 7 BUN 9 Creatinine 0.70 Estim Creat Clear Calc 43.27 Est GFR (MDRD) Af Amer 106 Est GFR (MDRD) Non-Af 88 BUN/Creatinine Ratio 12.9 Glucose 87 Calcium 8.2 L Troponin I High Sens 6 B-Natriuretic Peptide 06/10/21 10:14 WBC RBC Hgb Hct MCV MCH MCHC RDW Std Deviation RDW Coeff of Ermelinda Plt Count MPV Immature Gran % (Auto) Neut % (Auto) Lymph % (Auto) [place] % (Auto) Eos % (Auto) Baso % (Auto) Absolute Neuts (auto) Absolute Lymphs (auto) Nucleated RBC % D-Dimer Quant (PE/DVT) Sodium Potassium Chloride Carbon Dioxide Anion Gap BUN Creatinine Estim Creat Clear Calc Est GFR (MDRD) Af Amer Est GFR (MDRD) Non-Af BUN/Creatinine Ratio Glucose Calcium Troponin I High Sens B-Natriuretic Peptide 40.9 Radiography Diagnostic Testin view chest x-ray obtained interpreted by myself as hyperinflation with some atelectasis in the bases. Official report from radiology pending. EKG Initial EKG: Attestation: I personally reviewed and interpreted this EKG as follows: Comments: Sinus rhythm with a ventricular rate rate of 80 bpm with no acute ST segment changes Discharge Plan Triage Chief Complaint: Shortness of Breath ED Provider: Alcides Gregory Dx/Rx/DC Orders Clinical Impression: COVID-19, Acute exacerbation of chronic obstructive pulmonary disease Prescriptions: No Action Breo Ellipta 200-25 mcg/dose blister with device 1 inh INHALATION DAILY Qty: 60 RF: 6 Spiriva Respimat 2.5 mcg/actuation mist 2 puff INHALATION DAILY Qty: 4 RF: 6 prednisone 10 mg tablet 10 mg PO QDAY Qty: 30 RF: 0 amoxicillin-pot clavulanate [Augmentin] 875-125 mg tablet 1 tab PO BID Qty: 10 RF: 0 esomeprazole magnesium 20 mg capsule,delayed release(DR/EC) 20 mg PO DAILY RF: 0 cholecalciferol (vitamin D3) 125 mcg (5,000 unit) capsule 125 mcg PO DAILY RF: 0 albuterol sulfate 2.5 MG/3 ML solution for nebulization 1 puff INHALATION DAILY RF: 0 albuterol sulfate 1 INHALER inhaler 1 puff INHALATION DAILY RF: 0 fluticasone furoate-vilanterol 1 EACH blister with device 1 puff INHALATION QODAY RF: 0 levothyroxine 137 MCG tablet 137 mcg PO DAILY RF: 0 tamoxifen 20 MG tablet 20 mg PO DAILY 90 Days Qty: 90 RF: 3 aspirin 81 MG tablet,chewable 81 mg PO DAILY@0800 Qty: 30 RF: 1 clopidogrel [Plavix] 75 mg tablet 75 mg PO DAILY Qty: 90 RF: 4 lisinopril 5 mg tablet 5 mg PO DAILY Qty: 90 RF: 3 carvedilol 3.125 mg tablet 3.125 mg PO BID Qty: 180 RF: 3 atorvastatin 40 mg tablet 40 mg PO DAILY Qty: 90 RF: 3 Primary Care Provider: Mike Lino Referrals: Mike Lino MD [Primary Care Provider] - Disposition Disposition: Acute Care Hospital [facility]
[2021-06-10 10:24] LABS: Absolute Neutrophil Count 8.6 X10^3/uL (2.0-7.7); Basophil# 0.02 X10^3/uL; Basophil% 0.2 % (0-1); Eosinophil# 0.03 X10^3/uL; Eosinophils% 0.3 % (0-5); Hemoglobin 13.3 g/dL (12.0-15.0); Lymphocyte % 6.9 % (19-41); Mean Corp Hgb Conc 32.4 g/dL (32-36); Mean Corpuscular Hgb 31.6 pg (27.0-32.0); Mean Corpuscular Volume 97.4 fL (81-99); Mean Platelet Vol. 9.6 fl (6.2-12.0); Monocyte# 0.65 X10^3/uL; Monocyte% 6.4 % (0-10); NRBC Flagged by Analyzer 0 % (0-5); Neutrophil # 8.64 X10^3/uL (2.7-7.7); Neutrophil % 85.7 % (47-70); Platelet Count 222 K/mm3 (150-450); Red Blood Count 4.21 M/mm3 (4.2-5.4); White Blood Count 10.1 K/mm3 (4.4-11.0)
--- NOTE | 2021-06-10 10:26 | RAD_ITS ---
STUDY: X-RAY CHEST REASON FOR EXAM: Female, 75 years old. dyspnea TECHNIQUE: Single AP portable view of the chest. COMPARISON: 11/17/2019 FINDINGS: The lungs are clear and expanded. There is no demonstrated pleural abnormality. Normal size heart. Normal mediastinum and rah. Normal visualized pulmonary arteries. Normal visualized aortic arch and descending thoracic aorta. Normal visualized thoracic spine. Normal visualized ribs, clavicles, and shoulders. There is no demonstrated abnormality of the visualized soft tissue structures of the upper abdomen. RAD/Chest 1 View (Portable) IMPRESSION: Normal x-ray examination of the chest. Electronically Signed: Rayo Vega MD at 11:06 EST Tel , Service support ,
[2021-06-10] MEDS: Ipratropium/Albuterol Sulfate 3 ML AMPUL.NEB INHALATION ×4 (10:28→22:59)
[2021-06-10 10:34] LABS: D-Dimer Quantitative (DVT/PE) 0.48 FEU/ug/m (0.27-0.49)
[2021-06-10 10:41] LABS: Anion Gap 7 (5-15); BNP,B-Type NATRIURETIC PEPTIDE 40.9 pg/mL (0-100); BUN 9 mg/dL (7-18); BUN/Creat Ratio 12.9 RATIO (10-20); Calcium,Total 8.2 mg/dL (8.5-10.1); Chloride 95 mmol/L (98-107); EST Glomerular Filtration Rate 88 mL/min (>60); Est Glom Filt Rate - Afr Amer 106 mL/min (>60); Estimated Creatinine Clearance 43.27 ml/min; Glucose 87 mg/dL (74-106); Potassium 4.1 mmol/L (3.5-5.1); Sodium Level 136 mmol/L (136-145); Troponin-I HS 6 pg/mL (3.0-54.0)
[2021-06-10] MEDS: MethylPREDNISolone 125 MG/2 ML Vial IV (10:55)
--- NOTE | 2021-06-10 11:12 | PCM.HP.STD ---
HPI - General General Date of Admission: 06/10/21 Date of Service: 06/10/21 Chief Complaint: Progressive shortness of breath ongoing for weeks HPI Narrative NURYS DIAZ, is a 75 F who presents with the above. Patient has history of chronic respiratory failure secondary to COPD, on 2 L of oxygen at home. Patient stated that she has been feeling short of breath ongoing for weeks. She has gone through 3 courses of prednisone. She recently was started on dexamethasone on Friday by her primary care doctor. She started feeling worsening shortness of breath last night. The EMS were called this morning. Her oxygen saturation was in the 70s. Per oxygen saturation in the ED was 88% and improved to 93% on 3 L of oxygen. Her admitting vitals otherwise were stable. Admitting blood work was unremarkable. Chest x-ray showed no acute infiltrates. Rapid antigen test for COVID-19 was positive. Patient is vaccinated. [facility] Medical History Abnormal breast biopsy Acute hypoxemic respiratory failure (06/20/19) Antineoplastic chemotherapy induced anemia Asthma Asthma with COPD Atherosclerosis of coronary artery of [place] heart without angina pectoris Breast cancer Breast cancer, right breast Chronic systolic (congestive) heart failure COPD (chronic obstructive pulmonary disease) Elevated troponin (10/11/19) Encounter for insertion of venous access port Encounter for monitoring cardiotoxic drug therapy Foot swelling Fracture, skull History of alcohol abuse History of elevated glucose History of non-ST elevation myocardial infarction (NSTEMI) (10/11/19) Hypokalemia due to loss of potassium Hypothyroidism (acquired) Ileus Ischemic cardiomyopathy Large bowel obstruction Nicotine dependence port placement Prediabetes 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 Home Medications albuterol sulfate 1 puff INHALATION DAILY 10/21/17 [History Last Taken 10/11/19] albuterol sulfate 1 puff INHALATION DAILY 10/21/17 [History Last Taken 10/11/19] fluticasone furoate-vilanterol 1 puff INHALATION QODAY 10/21/17 [History Last Taken 10/09/19] levothyroxine 137 mcg PO DAILY 05/12/19 [History Last Taken 10/11/19] aspirin 81 mg PO DAILY@0800 #30 tab.chew 06/28/19 [Rx Last Taken 10/11/19] tamoxifen 20 mg PO DAILY 90 Days #90 tablet 07/03/20 [Rx Last Taken Unknown] fluticasone furoate 200 mcg-vilanterol 25 mcg/dose inhalation powder 1 inh INHALATION DAILY #60 each 09/20/20 [Rx Last Taken Unknown] tiotropium bromide 2.5 mcg/actuation mist for inhalation 2 puff INHALATION DAILY #4 gm 09/20/20 [Rx Last Taken Unknown] clopidogrel 75 mg tablet 75 mg PO DAILY #90 tablet 11/24/20 [Rx Last Taken Unknown] lisinopril 5 mg tablet 5 mg PO DAILY #90 tab 01/22/21 [Rx Last Taken Unknown] carvedilol 3.125 mg tablet 3.125 mg PO BID #180 tab 02/14/21 [Rx Last Taken Unknown] cholecalciferol (vitamin D3) 125 mcg (5,000 unit) capsule 125 mcg PO DAILY 02/23/21 [History Last Taken Unknown] esomeprazole magnesium 20 mg capsule,delayed release 20 mg PO DAILY cap 02/23/21 [History Last Taken Unknown] atorvastatin 40 mg tablet 40 mg PO DAILY #90 tablet 05/28/21 [Rx Last Taken Unknown] Allergy/AdvReac Type Severity Reaction Status Date / Time No Known Allergies Allergy Verified 06/10/21 10:07 Family History Brother Cancer Father Lung cancer Aunt Cancer Mother Asthma Thyroid disorder Heart disease Surgical History H/O toe surgery H/O ultrasound guided needle biopsy History of appendectomy History of back surgery History of coronary artery stent placement (06/25/19) History of modified radical mastectomy of right breast Social History (Updated 06/10/21 @ 15:[address] Codi Brooks MD) household members: family Smoking Status: Current every day smoker tobacco type: cigarettes alcohol intake: never substance use type: does not use ROS ROS Narrative Constitutional: Reports: Malaise, Weakness, Fatigue. Denies: Anorexia, Chills, Fever, Night Sweats, Weight Change Eyes: Denies: Blurred vision, Cataracts, Conjunctivae Inflammation, Pain, Redness, Vision Change HEENT: Denies: Difficulty Hearing, Difficulty Swallowing, Head Aches, Hearing Changes, Sinus Congestion, Sinus Drainage Cardiovascular: Denies: Chest Pain, Orthopnea, Palpitations Respiratory: Admits to cough, Shortness of breath at rest, Sputum production Gastrointestinal: Denies: Abdominal Pain, Nausea, Vomiting Genitourinary: Denies: Dysuria Musculoskeletal: Denies: Joint Pain, Joint stiffness, Joint swelling, Joint Tenderness Skin: Denies: Rash, Wounds Neurological: Denies: Numbness, Tingling, Focal weakness Vital Signs Vital Signs Vital Signs: 06/10/21 10:02 06/10/21 10:09 06/10/21 10:10 Temperature 97.9 F 97.9 F Temperature Source Temporal Temporal Pulse Rate 117 H 117 H Respiratory Rate 25 H 25 H Respiratory Effort Short of Breath Respiratory Pattern Tachypnea Blood Pressure 136/99 H 136/99 H Blood Pressure Mean 111 111 Pulse Ox 88 88 Oxygen Delivery Method Nasal Cannula Nasal Cannula Oxygen Flow Rate (L/min) 5 5 06/10/21 10:31 06/10/21 11:02 06/10/21 11:07 Temperature 97.9 F Temperature Source Temporal Pulse Rate 80 83 83 Respiratory Rate 30 H 22 H 22 H Respiratory Effort Respiratory Pattern Blood Pressure 113/68 113/68 Blood Pressure Mean 83 83 Pulse Ox 100 93 93 Oxygen Delivery Method Nasal Cannula Nasal Cannula Nasal Cannula Oxygen Flow Rate (L/min) 5 5 2 Weight Weight: 75.6 kg Body Mass Index (BMI) 28.5 Physical Exam Narrative Physical exam: General: Alert, Oriented x3, Cooperative, in moderate respiratory distress with tachypnea, use of accessory muscles of respiration HEENT: Atraumatic Oral: Moist Mucosa Neck: Supple Lungs: Diminished to auscultation, wheezes++ Cardiovascular: HS I+II, regular, no murmurs Abdomen: Bowel Sounds Present, Soft, Non Tender Extremities: No edema Results Lab / Micro Data Result Diagrams: 06/10/21 10:14 06/10/21 10:14 Labs: Laboratory Results - last 24 hr 06/10/21 10:14: WBC 10.1, RBC 4.21, Hgb 13.3, Hct 41.0, MCV 97.4, MCH 31.6, MCHC 32.4, RDW Std Deviation 57.0 H, RDW Coeff of [place] 16.0 H, Plt Count 222, MPV 9.6, Immature Gran % (Auto) 0.500, Neut % (Auto) 85.7 H, Lymph % (Auto) 6.9 L, [place] % (Auto) 6.4, Eos % (Auto) 0.3, Baso % (Auto) 0.2, Absolute Neuts (auto) 8.6 H, Absolute Lymphs (auto) 0.70 L, Nucleated RBC % 0 06/10/21 10:14: D-Dimer Quant (PE/DVT) 0.48 06/10/21 10:14: Sodium 136, Potassium 4.1, Chloride 95 L, Carbon Dioxide 34.0 H, Anion Gap 7, BUN 9, Creatinine 0.70, Estim Creat Clear Calc 43.27, Est GFR (MDRD) Af Amer 106, Est GFR (MDRD) Non-Af 88, BUN/Creatinine Ratio 12.9, Glucose 87, Calcium 8.2 L, Troponin I High Sens 6 06/10/21 10:14: B-Natriuretic Peptide 40.9 Micro: Microbiology 06/10/21 10:36 Nasal Secretion SARS-CoV-2 Antigen (Rapid) - Final Radiology Impression Chest X-Ray 06/10/21 10:26 IMPRESSION: Normal x-ray examination of the chest. Electronically Signed: Rayo Vega MD at 11:06 EST Tel , Service support , Assessment & Plan Assessment/Plan (1) COVID-19: (2) Acute exacerbation of chronic obstructive pulmonary disease: (3) Acute hypoxemic respiratory failure: PLAN: 1. Acute on chronic hypoxic respiratory failure secondary to acute COVID-19 infection Patient has underlying chronic lung disease from COPD, pulmonary histiocytosis She is on 2 L at home;currently on 5 L of oxygen Admitting chest x-ray shows no acute infiltrate Continue on breathing treatment, IV dexamethasone, encourage use of incentive spirometer Continue on fluticasone Check influenza and RSV, check D-dimer, BNpep 2. Nicotine dependence, advised to quit, will continue on replacement 3. CA status post stent, continue on aspirin, statin, carvedilol 4. Rest of chronic medical conditions including hypertension, hypothyroidism, GERD, chronic systolic CHF, Ef 58% Continue rest of her home medication 5. History of breast CA, on tamoxifen Code status - I discussed and explained in details the various types of CODE STATUS-full code, DNR CCA, DNR CC. Patient chose to be full code. She stated that her son was her power of consumer attorney for healthcare. Time spent discussing CODE STATUS 16minutes Charges/Coding Visit Charges Inpatient E&M: 57911 Init Hosp L3 Procedures Hospitalists Procedures: 56778 Advncd Care Plan 30 Min
[2021-06-10 11:20] LABS: Lactic Acid 1.3 mmol/L (0.4-1.9)
[2021-06-10] MEDS: Albuterol 2.5 MG/3 ML VIAL.NEB. INHALATION ×2 (11:20)
[2021-06-10] MEDS: dexAMETHasone 10 MG/ML Vial 6 MG IV (15:07)
[2021-06-10] MEDS: 0.9% Saline Lock 10 ML Syringe IV (15:08)
[2021-06-10] MEDS: Atorvastatin Calcium 40 MG Tablet PO (23:44)
[2021-06-10] MEDS: Tamoxifen 10 MG Tablet 20 MG PO (23:44)
[2021-06-10] MEDS: Carvedilol 3.125 MG TABLET PO (23:44)
[2021-06-11] VITALS (19 sets, daily range): BP systolic 82–154; BP diastolic 49–82; PULSE 57–90; RESP 12–31; TEMP 36.2–37.2; O2SAT 92–100
[2021-06-11] MEDS: Ipratropium/Albuterol Sulfate 3 ML AMPUL.NEB INHALATION ×3 (04:59→15:03)
[2021-06-11] MEDS: Levothyroxine 137 MCG Tablet PO (06:34)
[2021-06-11 06:56] LABS: Absolute Lymphocyte Count 0.39 X10^3/uL (0.83-4.51); Basophil# 0.01 X10^3/uL; Basophil% 0.2 % (0-1); Hematocrit 38.2 % (37-47); Lymphocyte # 0.39 X10^3/ul (0.83-4.51); Lymphocyte % 6.4 % (19-41); Mean Corp Hgb Conc 31.4 g/dL (32-36); Mean Corpuscular Hgb 30.7 pg (27.0-32.0); Mean Corpuscular Volume 97.7 fL (81-99); Mean Platelet Vol. 9.8 fl (6.2-12.0); Monocyte# 0.67 X10^3/uL; Monocyte% 11.1 % (0-10); NRBC Flagged by Analyzer 0 % (0-5); Neutrophil # 4.97 X10^3/uL (2.7-7.7); POSITIVE DIFFERENTIAL YES; Platelet Count 193 K/mm3 (150-450); RBC Distribution Width CV 16.1 % (11.6-14.6); RBC Distribution Width SD 58.1 fl (35.1-43.9); Red Blood Count 3.91 M/mm3 (4.2-5.4); White Blood Count 6.1 K/mm3 (4.4-11.0)
[2021-06-11 06:58] LABS: Differential Indicated SCAN CRITERIA MET
[2021-06-11 07:16] LABS: ALB/GLOB Ratio 0.8 RATIO (0.9-2.4); AST(SGOT) 13 U/L (15-37); Alanine Aminotransfer ALT/SGPT 21 U/L (13-56); Albumin, Serum 2.8 g/dL (3.2-5.0); Alkaline Phosphatase 62 U/L (45-117); Anion Gap 4 (5-15); BUN 9 mg/dL (7-18); Calcium,Total 8.4 mg/dL (8.5-10.1); Chloride 96 mmol/L (98-107); Creatinine, Serum 0.56 mg/dL (0.55-1.02); EST Glomerular Filtration Rate 112 mL/min (>60); Est Glom Filt Rate - Afr Amer 136 mL/min (>60); Estimated Creatinine Clearance 43.27 ml/min; Globulin 3.6 g/dL (2.2-4.2); Glucose 103 mg/dL (74-106); Potassium 4.6 mmol/L (3.5-5.1); Protein, Total 6.4 g/dL (6.4-8.2); Sodium Level 136 mmol/L (136-145)
--- NOTE | 2021-06-11 10:26 | CASEMGMT ---
AIME CANTU Assessment: Face to Face with pt for initial transition planning/care coordination assessment. AIME CANTU introduced self and role at [facility], pt voices understanding and consents to assessment. Pt is A/O x4 and answers all questions appropriately at this time. Pt sitting up in bed with O2 in and is sob with conversation. Care providers, pharmacy, and demographics verified/updated. Admitting Dx: Acute COVID/COPD exac PCP:[facility] Specialists:Asael, pulm; Brandi, cardio; Ryan pod Preferred Pharmacy: [facility] Insurance: [employer] [employer] Prescription Benefit: yes LW/HPOA: Pt states she has a LW/DPOA and her DPOA is her Pietro Larose. She is aware this is not on file at [facility] and she may bring in to be scanned into the chart. LNOK: Pietro Larose, ; Seamus Couch, son Living Arrangements: Pt lives with in a single story house with 5 steps to enter with a rail. Pt reports she was I in ADL's and denies concerns at home. Transportation: Pt drives self and denies concerns with transportation. DME/HHC/SNF: Pt has O2 at 2L cont per her report through [employer]. She states she does have portable tanks and one can be brought in to go home on. Pt also has a walker but does not use. She has a pulse ox. Pt has had HHC in the past but is unsure of the name of the company who provided it. Pt denies SNF stays. Pt states no concerns with going home at time of dc.Discussed HHC SN and pt denies need for this. Pt states no further concerns/needs. CM to follow. Advised pt to ask CM if any further question/concerns/needs arise, voices understanding. Pt first test positive for COVID at [facility]. Pt has family who can provide groceries and supplies while in quarantine. Pt is not positive as far as I know of. She states she cannot quarantine from him as they only have one bathroom and they both sleep in recliners in the livingroom. Pt Goal: Home Plan: Home
[2021-06-11] MEDS: Carvedilol 3.125 MG TABLET PO ×2 (10:41→21:02)
[2021-06-11] MEDS: Lisinopril 5 MG Tablet PO (10:41)
[2021-06-11] MEDS: Aspirin 81 MG TAB.CHEW PO (10:41)
[2021-06-11] MEDS: 0.9% Saline Lock 10 ML Syringe IV (10:42)
[2021-06-11] MEDS: dexAMETHasone 10 MG/ML Vial 6 MG IV (10:42)
--- NOTE | 2021-06-11 11:10 | CPS ---
Addendum entered and electronically signed by Nazia Davenport RRT 06/11/21 16:30: Also explained to pt why she cannot use a NRB mask over her NC d/t CO2 retention. Original Note: Pt says she is anxious, that she feels like the mucus in her chest won't come up any further than below her clavicles and feels like she can't breath even after the aerosol. R.T. will discuss w/RN & cortext
--- NOTE | 2021-06-11 12:30 | PN.HOSP_ITS ---
Subjective Subjective Patient seen and examined. She complained of feeling short of breath and feeling like she could not breathe. She was however saturating at 94% on 3 L of oxygen. Patient does seem to be quite anxious and I think this is contributing to her feeling like she is short of breath. She has no other complaints and review of systems otherwise negative. Objective Data Objective Data Vital Signs: Vital Signs Temp Pulse Resp BP Pulse Ox 98.3 F 75 22 H 154/70 H 96 06/11/21 09:00 06/11/21 11:10 06/11/21 11:10 06/11/21 09:00 06/11/21 11:10 Oxygen Flow Rate (L/min) 3 Oxygen Delivery Method Nasal Cannula Weight: 160 lb 7.944 oz Body Mass Index (BMI) 27.5 Intake & Output: Intake and Output for Last 24 Hours 06/09/21 06/10/21 06/11/21 23:59 23:59 23:59 Intake Total 900 / 900 Balance 900 / 900 Lab / Micro Data Result Diagrams: 06/11/21 06:10 06/11/21 06:10 Labs: Laboratory Results - last 24 hr 06/11/21 06:10: WBC 6.1, RBC 3.91 L, Hgb 12.0, Hct 38.2, MCV 97.7, MCH 30.7, MCHC 31.4 L, RDW Std Deviation 58.1 H, RDW Coeff of [place] 16.1 H, Plt Count 193, MPV 9.8, Immature Gran % (Auto) 0.300, Neut % (Auto) 82.0 H, Lymph % (Auto) 6.4 L, [place] % (Auto) 11.1 H, Eos % (Auto) 0.0, Baso % (Auto) 0.2, Absolute Neuts (auto) 5.0, Absolute Lymphs (auto) 0.39 L, Nucleated RBC % 0, Differential Comment COMMENT 06/11/21 06:10: Sodium 136, Potassium 4.6, Chloride 96 L, Carbon Dioxide 36.0 H, Anion Gap 4 L, BUN 9, Creatinine 0.56, Estim Creat Clear Calc 43.27, Est GFR (MDRD) Af Amer 136, Est GFR (MDRD) Non-Af 112, BUN/Creatinine Ratio 16.0, Glucose 103, Calcium 8.4 L, Total Bilirubin 0.50, AST 13 L, ALT 21, Alkaline Phosphatase 62, Total Protein 6.4, Albumin 2.8 L, Globulin 3.6, Albumin/Globulin Ratio 0.8 L Micro: Microbiology 06/10/21 15:42 Mucosa - Nose Rapid RSV (DFA) - Final 06/10/21 15:42 Mucosa - Nose Influenza Types A,B Direct FA (JE) - Final 06/10/21 10:36 Nasal Secretion SARS-CoV-2 Antigen (Rapid) - Final SARS-CoV-2 (COVID 19) Physical Exam Const alert and oriented x3 Constitutional Narrative: anxious Exam Limitations: no limitations HEENT head/scalp atraumatic and moist oral mucous membranes Head and Scalp: normocephalic Eyes PERRL, EOMs intact bilaterally and conjunctivae normal Neck no lymphadenopathy Resp Resp Narrative: Mildly diminished breath sounds bibasilar. No wheezes or crackles. On 3 L of oxygen. Cardio regular rate, regular rhythm, S1 normal heart sound, S2 normal heart sound and no murmurs GI normal to inspection, nondistended, normoactive bowel sounds, soft to palpation, non-tender and non-distended Extremity normal to inspection, full ROM and no clubbing, cyanosis or edema Peripheral Pulses: Yes pulses 2+ throughout Skin no rashes or lesions noted Neuro oriented x3, CN's II-XII intact bilaterally and moves all extremities Sensorium / Orientation: awake and alert Psych affect normal Assessment & Plan Assessment/Plan (1) COVID-19: (2) Acute hypoxemic respiratory failure: PLAN: ##Acute hypoxic respiratory failure due to covid 19 pneumonia * Patient is vaccinated x2 with Moderna but has not yet gotten the booster * On Decadron and remdesivir * Titrate oxygen to maintain saturation above 90% * Diurese as needed to maintain euvolemic status. * Will start on Ativan 1 mg every 6 hours as needed to help with anxiety as I think anxiety is contributing to her shortness of breath. * Influenza and RSV are negative. BNP was only 40.9, and D-dimer was 0.48 * #CAD s/p stents: * On aspirin,plavix, statin and carvedilol * #Hypertension: On carvedilol #Hypothyroidism: On Synthroid #Heart failure with preserved ejection fraction * stable. BNP was 40. * #History of breast cancer: on tamoxifen. #Nicotine dependence: counseled to quit. On nicotine patch DVT prophylaxis; will start lovenox Charges/Coding Visit Charges Inpatient E&M: 41290 Subs Hosp L3
[2021-06-11] MEDS: LORazepam 1 MG Tablet PO (12:45)
[2021-06-11] MEDS: Enoxaparin 40 MG/0.4 ML Syringe SC (13:04)
[2021-06-11 15:56] LABS: Allen Test Positive; Base Excess 13 mmol/L (-2 to +2); Bicarbonate 39.4 mmol/L (22-26); Blood Gas Specimen Type ART; FI02 100; O2 Delivery Device NRB; PO2 203 mmHG (75-100); SITE L Brach; SO2 100 % (95-99); Total Carbon Dioxide 42 mmol/L; pCO2 83.2 mmHg (35-45); pH 7.28 (7.35-7.45)
[2021-06-11] MEDS: QUEtiapine 25 MG Tablet PO ×2 (16:15→21:02)
[2021-06-11 17:40] LABS: Allen Test Positive; Base Excess 12 mmol/L (-2 to +2); Bicarbonate 39.2 mmol/L (22-26); Blood Gas Specimen Type ART; FI02 35; Mode BiLevel; O2 Delivery Device BiPAP; PEEP 7; PO2 84 mmHG (75-100); RR 12; SITE L Radial; SO2 94 % (95-99); Total Carbon Dioxide 42 mmol/L; pCO2 87.7 mmHg (35-45); pH 7.26 (7.35-7.45)
[2021-06-11 19:46] LABS: Allen Test Positive; Base Excess 13 mmol/L (-2 to +2); Bicarbonate 39.1 mmol/L (22-26); Blood Gas Specimen Type ART; FI02 30; O2 Delivery Device BiPAP; PEEP 9; PO2 75 mmHG (75-100); PS 18; RR 12; SITE R Radial; SO2 92 % (95-99); Total Carbon Dioxide 42 mmol/L; pCO2 77.3 mmHg (35-45); pH 7.31 (7.35-7.45)
--- NOTE | 2021-06-11 20:04 | CPS ---
After most recent ABG results and observation of patient taking in inadequate tidal volumes on the current bipap settings, the settings were changed to AVAPS mode on the V60. Review 1958 documentation new settings.
[2021-06-11] MEDS: Clopidogrel Bisulfate 75 MG Tablet PO (21:01)
[2021-06-11] MEDS: Atorvastatin Calcium 40 MG Tablet PO (21:02)
[2021-06-11] MEDS: Pantoprazole Sodium 20 MG Tablet PO (21:02)
[2021-06-11] MEDS: Tamoxifen 10 MG Tablet 20 MG PO (21:03)
[2021-06-11 21:45] LABS: Allen Test Positive; Base Excess 12 mmol/L (-2 to +2); Bicarbonate 37.5 mmol/L (22-26); Blood Gas Specimen Type ART; FI02 30; O2 Delivery Device BiPAP; PO2 80 mmHG (75-100); RR 14; SITE R Radial; SO2 94 % (95-99); Total Carbon Dioxide 40 mmol/L; Vt 400; pH 7.34 (7.35-7.45)
[2021-06-12] VITALS (30 sets, daily range): BP systolic 82–153; BP diastolic 48–86; PULSE 53–75; RESP 14–26; TEMP 36.2–36.6; O2SAT 91–100
--- NOTE | 2021-06-12 03:59 | CPS ---
06/11/211941 Critical ABG results read to Barbi SALOMON and results were rerun at this time.
--- NOTE | 2021-06-12 04:01 | CPS ---
06/11/212140 CRITICAL ABG results read to Barbi SALOMON. Results were rerun at this time.
--- NOTE | 2021-06-12 05:39 | EX.PCM.CONCC ---
Assessment & Plan Assessment/Plan (1) COVID-19: PLAN: RECOMMENDATIONS: 1. Continue supplemental oxygen to maintain saturations at or above 90%. 2. Continue scheduled bronchodilators. 3. Continue Decadron to complete 10 days of therapy. 4. Continue nicotine replacement therapy. 5. Encourage incentive spirometer use and mobilize patient as tolerated. 6. Continue BiPAP therapy with naps and nightly. 7. Continue prophylactic Lovenox. 8. Palliative care consultation. 9. The patient is medically stable for transfer out of the intensive care unit. IMPRESSIONS: 1. Acute on chronic combined respiratory failure secondary to COVID-19 pneumonia The patient was initially admitted to the hospital with progressive dyspnea of several weeks duration on June 10. She has a known history of advanced age COPD and chronic hypoxemic respiratory failure. In addition, the patient does continue to smoke cigarettes daily. Although the patient did have evidence of CO2 retention on ABG, she responded quite well to noninvasive positive pressure ventilatory support. She has been weaned to nasal cannula oxygen this morning. Accordingly, I would recommend that the patient be continued on BiPAP therapy with naps and nightly. Continue scheduled bronchodilator therapy along with Decadron daily. D-dimer was negative. Therefore continue prophylactic Lovenox. I do suspect that the patient's underlying anxiety is also contributing significantly to her ongoing symptoms. Palliative care consultation would be reasonable at this time. 2. Chronic tobacco dependency/end-stage COPD I personally spent 3 minutes discussing the deleterious effects of continued tobacco use with the patient. Nicotine replacement therapy can be utilized while admitted to the hospital. Continue scheduled bronchodilator therapy. 3. History of pulmonary Langerhans' cell histiocytosis/history of coronary artery disease/hypertension/hypothyroidism Complicates care, management, recovery and prognosis. Continue home medications as indicated. CODE status: Discussed CODE status at length including difference between FULL code, DNR-CCA and DNR-CC status. Following discussions about the differences in these status, patient requested FULL CODE STATUS. This note was generated with [employer] software. It may contain incorrect words, spelling, and punctuation that were not noted in checking the note before signing. HPI Consult Data Date of Consult: 06/12/21 HPI Narrative HPI Narrative: The patient is a 75-year-old female, with a history as outlined below, who presented to the emergency department on June 10 with progressive dyspnea. The patient has a known history of end-stage COPD (on a baseline triple therapy inhaler regimen) along with chronic hypoxemic respiratory failure (2 L/min baseline requirement), chronic nicotine dependency and pulmonary Langerhans' cell histiocytosis. In addition to the aforementioned, the patient also has a history of ischemic cardiomyopathy and chronic systolic heart failure, followed longitudinally by Dr. Paz in the cardiology clinic. The patient does continue to smoke 3 to 4 cigarettes/day. On presentation to the emergency department, the patient was noted to be afebrile and hemodynamically stable. Initial laboratory evaluation demonstrated no evidence of a leukocytosis. D-dimer was within normal limits. Chemistry profile revealed an elevated bicarbonate at 34. Rapid coronavirus antigen testing was positive. The patient was subsequently placed on scheduled bronchodilators, Decadron and prophylactic Lovenox. The patient was initially admitted to a general medical floor. On June 11, the patient was transition to BiPAP and was noted to have CO2 retention on ABG. Therefore, she was transferred to the medical intensive care unit. The patient did tolerate BiPAP overnight and was subsequently transitioned to nasal cannula oxygen at 4 L/min this morning. [facility] Medical History Abnormal breast biopsy Acute hypoxemic respiratory failure (06/20/19) Antineoplastic chemotherapy induced anemia Asthma Asthma with COPD Atherosclerosis of coronary artery of [place] heart without angina pectoris Breast cancer Breast cancer, right breast Chronic systolic (congestive) heart failure COPD (chronic obstructive pulmonary disease) Elevated troponin (10/11/19) Encounter for insertion of venous access port Encounter for monitoring cardiotoxic drug therapy Foot swelling Fracture, skull History of alcohol abuse History of elevated glucose History of non-ST elevation myocardial infarction (NSTEMI) (10/11/19) Hypokalemia due to loss of potassium Hypothyroidism (acquired) Ileus Ischemic cardiomyopathy Large bowel obstruction Nicotine dependence port placement Prediabetes 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 Home Medications albuterol sulfate 1 puff INHALATION DAILY 10/21/17 [History Last Taken 10/11/19] albuterol sulfate 1 puff INHALATION DAILY 10/21/17 [History Last Taken 10/11/19] fluticasone furoate-vilanterol 1 puff INHALATION QODAY 10/21/17 [History Last Taken 10/09/19] levothyroxine 137 mcg PO DAILY 05/12/19 [History Last Taken 06/09/21 06:00] aspirin 81 mg PO DAILY@0800 #30 tab.chew 06/28/19 [Rx Last Taken 10/11/19] tamoxifen 20 mg PO DAILY 90 Days #90 tablet 07/03/20 [Rx Last Taken 06/09/21 22:00] fluticasone furoate 200 mcg-vilanterol 25 mcg/dose inhalation powder 1 inh INHALATION DAILY #60 each 09/20/20 [Rx Last Taken Unknown] tiotropium bromide 2.5 mcg/actuation mist for inhalation 2 puff INHALATION DAILY #4 gm 09/20/20 [Rx Last Taken Unknown] clopidogrel 75 mg tablet 75 mg PO DAILY #90 tablet 11/24/20 [Rx Last Taken 06/09/21 22:00] lisinopril 5 mg tablet 5 mg PO DAILY #90 tab 01/22/21 [Rx Last Taken 06/09/21 10:00] carvedilol 3.125 mg tablet 3.125 mg PO BID #180 tab 02/14/21 [Rx Last Taken Unknown] cholecalciferol (vitamin D3) 125 mcg (5,000 unit) capsule 125 mcg PO DAILY 02/23/21 [History Last Taken 06/09/21 08:00] esomeprazole magnesium 20 mg capsule,delayed release 20 mg PO DAILY cap 02/23/21 [History Last Taken 06/09/21 22:00] atorvastatin 40 mg tablet 40 mg PO DAILY #90 tablet 05/28/21 [Rx Last Taken Unknown] Allergy/AdvReac Type Severity Reaction Status Date / Time No Known Allergies Allergy Verified 06/10/21 10:07 Family History Brother Cancer Father Lung cancer Aunt Cancer Mother Asthma Thyroid disorder Heart disease Surgical History H/O toe surgery H/O ultrasound guided needle biopsy History of appendectomy History of back surgery History of coronary artery stent placement (06/25/19) History of modified radical mastectomy of right breast Social History (Updated 06/10/21 @ 15:[address] Codi Brooks MD) household members: family Smoking Status: Current every day smoker tobacco type: cigarettes alcohol intake: never substance use type: does not use ROS Constitutional Constitutional: Reports fatigue and malaise Eyes Eyes: Denies blurry vision or change in vision ENT HEENT: Denies dizziness, dysphagia, epistaxis, headache(s) or nasal congestion Cardiovascular Cardiovascular: Reports dyspnea Respiratory/Chest Respiratory/Chest: Reports cough and dyspnea Gastrointestinal Gastrointestinal: Denies abdominal pain, diarrhea, nausea or vomiting Genitourinary Genitourinary: Denies difficulty urinating Musculoskeletal Musculoskeletal: Denies arthralgias, back pain or joint pain Integumentary Integumentary: Denies lesions, rash or skin ulcer Neurologic Neurologic: Denies abnormal gait or abnormal speech Psychiatric Psychiatric: Reports anxiety Endocrine Endocrinology: Reports fatigue Hematologic/Lymphatic Hematologic/Lymphatic: Denies easy bleeding or easy bruising Physical Exam Const alert and no apparent distress General Appearance: cooperative HEENT normocephalic, head/scalp atraumatic and moist oral mucous membranes Eyes PERRL, EOMs intact bilaterally and conjunctivae normal Neck supple General: trachea midline Chest inspection of chest normal Resp Effort and Inspection: tachypneic Auscultation: Negative for rales, rhonchi, wheezes or diminished lung sounds Cardio regular rate and regular rhythm GI normal to inspection, nondistended, normoactive bowel sounds Extremity no clubbing, cyanosis or edema Skin no rashes or lesions noted Neuro CN's II-XII intact bilaterally, moves all extremities and no focal motor deficits Psych Mood & Affect: anxious Lab / Micro Data Result Diagrams: 06/12/21 10:55 06/12/21 10:55 Labs: Laboratory Results - last 24 hr 06/11/21 06:10: WBC 6.1, RBC 3.91 L, Hgb 12.0, Hct 38.2, MCV 97.7, MCH 30.7, MCHC 31.4 L, RDW Std Deviation 58.1 H, RDW Coeff of Ermelinda 16.1 H, Plt Count 193, MPV 9.8, Immature Gran % (Auto) 0.300, Neut % (Auto) 82.0 H, Lymph % (Auto) 6.4 L, Hodgeman % (Auto) 11.1 H, Eos % (Auto) 0.0, Baso % (Auto) 0.2, Absolute Neuts (auto) 5.0, Absolute Lymphs (auto) 0.39 L, Nucleated RBC % 0, Differential Comment COMMENT 06/11/21 06:10: Sodium 136, Potassium 4.6, Chloride 96 L, Carbon Dioxide 36.0 H, Anion Gap 4 L, BUN 9, Creatinine 0.56, Estim Creat Clear Calc 43.27, Est GFR (MDRD) Af Amer 136, Est GFR (MDRD) Non-Af 112, BUN/Creatinine Ratio 16.0, Glucose 103, Calcium 8.4 L, Total Bilirubin 0.50, AST 13 L, ALT 21, Alkaline Phosphatase 62, Total Protein 6.4, Albumin 2.8 L, Globulin 3.6, Albumin/Globulin Ratio 0.8 L ABG Data ABG results: ABG 06/11/21 06/11/21 06/11/21 15:49 17:34 19:42 Specimen Type ART ART ART Sample Site L Brach L Radial R Radial pH 7.28 L 7.26 L 7.31 L Bicarbonate Actual 39.4 H 39.2 H 39.1 H Total CO2 42 42 42 Base Excess 13 H 12 H 13 H O2 Saturation 100 H 94 L 92 L O2 % 100 35 30 ABG pCO2 83.2 H* 87.7 H* 77.3 H* ABG pO2 203 H 84 75 José Miguel Test Positive Positive Positive Respiration Rate 12 12 O2 Delivery Device NRB BiPAP BiPAP Vent Mode BiLevel Tidal Volume POC PEEP 7 9 POC Pressure Suppt 18 Crit Call To/Read Back Yes Yes Yes Blood Gas Notified Whom darrion maier Clinical Comments bipap 14/7 35% 06/11/21 21:41 Specimen Type ART Sample Site R Radial pH 7.34 L Bicarbonate Actual 37.5 H Total CO2 40 Base Excess 12 H O2 Saturation 94 L O2 % 30 ABG pCO2 69.0 H* ABG pO2 80 José Miguel Test Positive Respiration Rate 14 O2 Delivery Device BiPAP Vent Mode Tidal Volume 400 POC PEEP POC Pressure Suppt Crit Call To/Read Back Yes Blood Gas Notified Whom Clinical Comments avaps epap 9 Charges/Coding Visit Charges Inpatient E&M: 74923 Init Hosp L3 Procedures Hospitalists Procedures: 11430 Advncd Care Plan 30 Min Behavior Interventions Behavior Intervention: 71428 Smoking Cessation 3-10 min
[2021-06-12] MEDS: Ipratropium/Albuterol Sulfate 3 ML AMPUL.NEB INHALATION ×4 (07:14→19:25)
[2021-06-12] MEDS: Levothyroxine 137 MCG Tablet PO (08:27)
[2021-06-12] MEDS: dexAMETHasone 10 MG/ML Vial 6 MG IV (08:28)
[2021-06-12] MEDS: Lisinopril 5 MG Tablet PO (08:28)
[2021-06-12] MEDS: Aspirin 81 MG TAB.CHEW PO (08:28)
[2021-06-12] MEDS: LORazepam 1 MG Tablet PO (08:28)
[2021-06-12] MEDS: Carvedilol 3.125 MG TABLET PO (08:28)
[2021-06-12] MEDS: 0.9% Saline Lock 10 ML Syringe IV ×2 (08:29→21:15)
[2021-06-12] MEDS: Enoxaparin 40 MG/0.4 ML Syringe SC (08:29)
[2021-06-12 11:03] LABS: Basophil# 0.01 X10^3/uL; Basophil% 0.1 % (0-1); Eosinophil# 0.01 X10^3/uL; Eosinophils% 0.1 % (0-5); Hematocrit 40.1 % (37-47); Hemoglobin 12.7 g/dL (12.0-15.0); Lymphocyte % 2.8 % (19-41); Mean Corp Hgb Conc 31.7 g/dL (32-36); Mean Corpuscular Hgb 31.3 pg (27.0-32.0); Mean Corpuscular Volume 98.8 fL (81-99); Mean Platelet Vol. 9.6 fl (6.2-12.0); Monocyte# 0.43 X10^3/uL; NRBC Flagged by Analyzer 0 % (0-5); Neutrophil # 9.95 X10^3/uL (2.7-7.7); Neutrophil % 92.6 % (47-70); POSITIVE DIFFERENTIAL YES; Platelet Count 174 K/mm3 (150-450); RBC Distribution Width CV 15.9 % (11.6-14.6); Red Blood Count 4.06 M/mm3 (4.2-5.4); White Blood Count 10.7 K/mm3 (4.4-11.0)
[2021-06-12 11:05] LABS: Differential Indicated SCAN CRITERIA MET
[2021-06-12 11:18] LABS: ALB/GLOB Ratio 0.8 RATIO (0.9-2.4); AST(SGOT) 15 U/L (15-37); Alanine Aminotransfer ALT/SGPT 26 U/L (13-56); Alkaline Phosphatase 63 U/L (45-117); Anion Gap 4 (5-15); BUN 15 mg/dL (7-18); BUN/Creat Ratio 24.3 RATIO (10-20); CRP 4.47 mg/L (0.0-3.0); Calcium,Total 8.5 mg/dL (8.5-10.1); Chloride 91 mmol/L (98-107); Creatinine, Serum 0.62 mg/dL (0.55-1.02); EST Glomerular Filtration Rate 101 mL/min (>60); Est Glom Filt Rate - Afr Amer 122 mL/min (>60); Estimated Creatinine Clearance 43.27 ml/min; Globulin 3.6 g/dL (2.2-4.2); Glucose 85 mg/dL (74-106); Potassium 4.6 mmol/L (3.5-5.1); Protein, Total 6.6 g/dL (6.4-8.2); Sodium Level 135 mmol/L (136-145)
--- NOTE | 2021-06-12 11:59 | CASEMGMT ---
Dr Vyas updated this RN CM requesting Palliative Consult. RN CM completed Palliative screening tool and referral made to Palliative Care.
--- NOTE | 2021-06-12 14:29 | PN.HOSP_ITS ---
Subjective Subjective Patient seen and examined. She was emergently transferred to the ICu yesternight o/a of hypercapnic and hypoxic respiratory failure. She is on BIPAP. She has no complaints this morning. She did much better overnight and says her shortness of breath is much better. She denies fever, chills, cough, chest pain, nausea or vomiting. REview of systems is otherwise negative. Objective Data Objective Data Vital Signs: Vital Signs Temp Pulse Resp BP Pulse Ox 97.8 F 65 16 106/64 96 06/12/21 14:00 06/12/21 14:15 06/12/21 14:15 06/12/21 14:00 06/12/21 14:00 Oxygen Flow Rate (L/min) 4 Oxygen Delivery Method Bi-pap Weight: 163 lb 5.8 oz Body Mass Index (BMI) 27.5 Intake & Output: Intake and Output for Last 24 Hours 06/10/21 06/11/21 06/12/21 23:59 23:59 23:59 Intake Total 900 / 900 808 / 808 244 / 244 Output Total 600 / 600 Balance 900 / 900 808 / 808 -356 / -356 Lab / Micro Data Result Diagrams: 06/12/21 10:55 06/12/21 10:55 Labs: Laboratory Results - last 24 hr 06/12/21 10:55: WBC 10.7, RBC 4.06 L, Hgb 12.7, Hct 40.1, MCV 98.8, MCH 31.3, MCHC 31.7 L, RDW Std Deviation 58.0 H, RDW Coeff of Ermelinda 15.9 H, Plt Count 174, MPV 9.6, Immature Gran % (Auto) 0.400, Neut % (Auto) 92.6 H, Lymph % (Auto) 2.8 L, Foster % (Auto) 4.0, Eos % (Auto) 0.1, Baso % (Auto) 0.1, Absolute Neuts (auto) 10.0 H, Absolute Lymphs (auto) 0.30 L, Nucleated RBC % 0 06/12/21 10:55: Sodium 135 L, Potassium 4.6, Chloride 91 L, Carbon Dioxide 40.0 H, Anion Gap 4 L, BUN 15, Creatinine 0.62, Estim Creat Clear Calc 43.27, Est GFR (MDRD) Af Amer 122, Est GFR (MDRD) Non-Af 101, BUN/Creatinine Ratio 24.3 H, Glucose 85, Calcium 8.5, Total Bilirubin 0.50, AST 15, ALT 26, Alkaline Phosphatase 63, Total Protein 6.6, Albumin 3.0 L, Globulin 3.6, Albumin/Globulin Ratio 0.8 L 06/12/21 10:55: C-React Prot Ext Range 4.47 H Micro: Microbiology 06/10/21 10:28 Blood Culture (Wb) - Anticubital Left Blood Culture - Preliminary No growth in 48 hours. 06/10/21 15:42 Mucosa - Nose Rapid RSV (DFA) - Final 06/10/21 15:42 Mucosa - Nose Influenza Types A,B Direct FA (EJ) - Final 06/10/21 10:36 Nasal Secretion SARS-CoV-2 Antigen (Rapid) - Final SARS-CoV-2 (COVID 19) ABG Data ABG results: ABG 06/11/21 06/11/21 06/11/21 15:49 17:34 19:42 Specimen Type ART ART ART Sample Site L Brach L Radial R Radial pH 7.28 L 7.26 L 7.31 L Bicarbonate Actual 39.4 H 39.2 H 39.1 H Total CO2 42 42 42 Base Excess 13 H 12 H 13 H O2 Saturation 100 H 94 L 92 L O2 % 100 35 30 ABG pCO2 83.2 H* 87.7 H* 77.3 H* ABG pO2 203 H 84 75 José Miguel Test Positive Positive Positive Respiration Rate 12 12 O2 Delivery Device NRB BiPAP BiPAP Vent Mode BiLevel Tidal Volume POC PEEP 7 9 POC Pressure Suppt 18 Crit Call To/Read Back Yes Yes Yes Blood Gas Notified Whom darrion maier Clinical Comments bipap 14/7 35% 06/11/21 21:41 Specimen Type ART Sample Site R Radial pH 7.34 L Bicarbonate Actual 37.5 H Total CO2 40 Base Excess 12 H O2 Saturation 94 L O2 % 30 ABG pCO2 69.0 H* ABG pO2 80 José Miguel Test Positive Respiration Rate 14 O2 Delivery Device BiPAP Vent Mode Tidal Volume 400 POC PEEP POC Pressure Suppt Crit Call To/Read Back Yes Blood Gas Notified Whom Clinical Comments avaps epap 9 Physical Exam Const alert, oriented x3 and no apparent distress Exam Limitations: no limitations and altered mental status HEENT head/scalp atraumatic and moist oral mucous membranes Head and Scalp: normocephalic Eyes PERRL, EOMs intact bilaterally and conjunctivae normal Neck no lymphadenopathy Resp Resp Narrative: Mildly diminished breath sounds bibasilarly. No wheezes or crackles. On BIPAP Cardio regular rate, regular rhythm, S1 normal heart sound, S2 normal heart sound and no murmurs GI normal to inspection, nondistended, normoactive bowel sounds, soft to palpation, non-tender and non-distended Extremity normal to inspection, full ROM and no clubbing, cyanosis or edema Peripheral Pulses: Yes pulses 2+ throughout Skin no rashes or lesions noted Neuro oriented x3, CN's II-XII intact bilaterally and moves all extremities Sensorium / Orientation: awake and alert Assessment & Plan Assessment/Plan (1) COVID-19: (2) Acute hypoxemic respiratory failure: PLAN: ##Acute hypercapnic and hypoxic respiratory failure due to covid 19 pneumonia * on BIPAP. transferred to the ICU yesterday o/a of hypercapnia which was not initially responding to BIPAP * Patient is vaccinated x2 with Moderna but has not yet gotten the booster * On Decadron and remdesivir * Titrate oxygen to maintain saturation above 90% * Diurese as needed to maintain euvolemic status. * on seroquel to help with anxiety to help her tolerate BIPAP better * Influenza and RSV are negative. BNP was only 40.9, and D-dimer was 0.48 * critical care on board * #CAD s/p stents: * On aspirin,plavix, statin and carvedilol * #Hypertension: On carvedilol #Hypothyroidism: On Synthroid #Heart failure with preserved ejection fraction * stable. BNP was 40. * #History of breast cancer: on tamoxifen. #Nicotine dependence: counseled to quit. On nicotine patch DVT prophylaxis: lovenox Charges/Coding Visit Charges Inpatient E&M: 14601 Subs Hosp L3
--- NOTE | 2021-06-12 15:41 | CASEMGMT ---
TC to [facility] to verify O2 orders. Pt is currently 2L at rest and 1L with exertion.
[2021-06-12] MEDS: Pantoprazole Sodium 20 MG Tablet PO (21:01)
[2021-06-12] MEDS: QUEtiapine 25 MG Tablet PO (21:01)
[2021-06-12] MEDS: Atorvastatin Calcium 40 MG Tablet PO (21:01)
[2021-06-12] MEDS: Tamoxifen 10 MG Tablet 20 MG PO (21:01)
[2021-06-12] MEDS: Clopidogrel Bisulfate 75 MG Tablet PO (21:01)
--- NOTE | 2021-06-12 21:53 | PCS.PANDOC ---
PANDEMIC DOCUMENTATION INITIATED: Date: 01/15/2021 Time: 190
[2021-06-13] VITALS (21 sets, daily range): BP systolic 82–114; BP diastolic 48–55; PULSE 61–83; RESP 10–22; TEMP 36.3–37.3; O2SAT 93–98
[2021-06-13 03:56] LABS: Absolute Neutrophil Count 4.9 X10^3/uL (2.0-7.7); Basophil# 0.01 X10^3/uL; Basophil% 0.2 % (0-1); Hemoglobin 11.9 g/dL (12.0-15.0); Lymphocyte % 11.2 % (19-41); Mean Corp Hgb Conc 32.2 g/dL (32-36); Mean Corpuscular Hgb 31.6 pg (27.0-32.0); Mean Corpuscular Volume 98.4 fL (81-99); Mean Platelet Vol. 9.9 fl (6.2-12.0); Monocyte# 0.65 X10^3/uL; Monocyte% 10.4 % (0-10); NRBC Flagged by Analyzer 0 % (0-5); Neutrophil # 4.86 X10^3/uL (2.7-7.7); Neutrophil % 77.7 % (47-70); Platelet Count 160 K/mm3 (150-450); RBC Distribution Width CV 15.7 % (11.6-14.6); RBC Distribution Width SD 56.8 fl (35.1-43.9); Red Blood Count 3.76 M/mm3 (4.2-5.4); White Blood Count 6.3 K/mm3 (4.4-11.0)
[2021-06-13 04:21] LABS: ALB/GLOB Ratio 0.9 RATIO (0.9-2.4); AST(SGOT) 16 U/L (15-37); Alanine Aminotransfer ALT/SGPT 23 U/L (13-56); Albumin, Serum 2.8 g/dL (3.2-5.0); Alkaline Phosphatase 53 U/L (45-117); Anion Gap 3 (5-15); BUN 14 mg/dL (7-18); BUN/Creat Ratio 28.4 RATIO (10-20); Calcium,Total 7.7 mg/dL (8.5-10.1); Chloride 95 mmol/L (98-107); Creatinine, Serum 0.49 mg/dL (0.55-1.02); EST Glomerular Filtration Rate 131 mL/min (>60); Est Glom Filt Rate - Afr Amer 158 mL/min (>60); Estimated Creatinine Clearance 43.27 ml/min; Globulin 3.1 g/dL (2.2-4.2); Glucose 84 mg/dL (74-106); Potassium 4.2 mmol/L (3.5-5.1); Protein, Total 5.9 g/dL (6.4-8.2); Sodium Level 137 mmol/L (136-145)
--- NOTE | 2021-06-13 05:42 | NURSING ---
Called report to [facility] on medsurg 3. Pt to be transferred to [facility].
--- NOTE | 2021-06-13 06:42 | PCM.PN.INT ---
Assessment & Plan Assessment/Plan (1) COVID-19: PLAN: RECOMMENDATIONS: 1. Continue supplemental oxygen to maintain saturations at or above 90%. 2. Continue scheduled bronchodilators. 3. Continue Decadron to complete 10 days of therapy. 4. Continue nicotine replacement therapy. 5. Encourage incentive spirometer use and mobilize patient as tolerated. 6. Continue BiPAP therapy with naps and nightly. 7. Continue prophylactic Lovenox. 8. Palliative care consultation. IMPRESSIONS: 1. Acute on chronic combined respiratory failure secondary to COVID-19 pneumonia The patient was initially admitted to the hospital with progressive dyspnea of several weeks duration on June 10. She has a known history of advanced age COPD and chronic hypoxemic respiratory failure. In addition, the patient does continue to smoke cigarettes daily. Although the patient did have evidence of CO2 retention on ABG, she responded quite well to noninvasive positive pressure ventilatory support. She has been weaned to nasal cannula oxygen. Accordingly, I would recommend that the patient be continued on BiPAP therapy with naps and nightly. Continue scheduled bronchodilator therapy along with Decadron daily. D-dimer was negative. Therefore continue prophylactic Lovenox. I do suspect that the patient's underlying anxiety is also contributing significantly to her ongoing symptoms. Palliative care consultation would be reasonable at this time. 2. Chronic tobacco dependency/end-stage COPD Nicotine replacement therapy can be utilized while admitted to the hospital. Continue scheduled bronchodilator therapy. 3. History of pulmonary Langerhans' cell histiocytosis/history of coronary artery disease/hypertension/hypothyroidism Complicates care, management, recovery and prognosis. Continue home medications as indicated. CODE status: Discussed CODE status at length including difference between FULL code, DNR-CCA and DNR-CC status. Following discussions about the differences in these status, patient requested FULL CODE STATUS. This note was generated with [employer] dictation software. It may contain incorrect words, spelling, and punctuation that were not noted in checking the note before signing. Subjective Subjective The patient was seen and examined at the bedside this morning. Events from the last 24 hours have been reviewed. The patient is currently afebrile, hemodynamically stable and maintaining appropriate oxygen saturations on BiPAP with an FiO2 requirement of 30%. The patient was able to be weaned to her baseline 2 L/min yesterday. No overnight issues were noted by the nursing staff. She is currently documented to be overall net +1.5 L for the hospitalization. The patient remains on bronchodilators and Decadron. Objective Data Objective Data The patient's most recent lab work, culture data and imaging studies have all been personally reviewed. Rapid coronavirus antigen testing was positive on June 10. Vital Signs: Vital Signs Temp Pulse Resp BP Pulse Ox 97.6 F L 64 19 H 103/53 L 97 06/13/21 04:00 06/13/21 04:00 06/13/21 04:00 06/13/21 04:00 06/13/21 04:00 Oxygen Flow Rate (L/min) 2 Oxygen Delivery Method Bi-pap Weight: 74.1 kg Body Mass Index (BMI) 27.5 Intake & Output: Intake and Output for Last 24 Hours 06/11/21 06/12/21 06/13/21 23:59 23:59 23:59 Intake Total 808 / 808 844 / 844 0 / 0 Output Total 1000 / 1000 0 / 0 Balance 808 / 808 -156 / -156 0 / 0 Lab / Micro Data Attestation: I reviewed the patient's lab results. Result Diagrams: 06/13/21 03:35 06/13/21 03:35 Labs: Laboratory Results - last 24 hr 06/12/21 10:55: WBC 10.7, RBC 4.06 L, Hgb 12.7, Hct 40.1, MCV 98.8, MCH 31.3, MCHC 31.7 L, RDW Std Deviation 58.0 H, RDW Coeff of Ermelinda 15.9 H, Plt Count 174, MPV 9.6, Immature Gran % (Auto) 0.400, Neut % (Auto) 92.6 H, Lymph % (Auto) 2.8 L, Yancey % (Auto) 4.0, Eos % (Auto) 0.1, Baso % (Auto) 0.1, Absolute Neuts (auto) 10.0 H, Absolute Lymphs (auto) 0.30 L, Nucleated RBC % 0 06/12/21 10:55: Sodium 135 L, Potassium 4.6, Chloride 91 L, Carbon Dioxide 40.0 H, Anion Gap 4 L, BUN 15, Creatinine 0.62, Estim Creat Clear Calc 43.27, Est GFR (MDRD) Af Amer 122, Est GFR (MDRD) Non-Af 101, BUN/Creatinine Ratio 24.3 H, Glucose 85, Calcium 8.5, Total Bilirubin 0.50, AST 15, ALT 26, Alkaline Phosphatase 63, Total Protein 6.6, Albumin 3.0 L, Globulin 3.6, Albumin/Globulin Ratio 0.8 L 06/12/21 10:55: C-React Prot Ext Range 4.47 H 06/13/21 03:35: WBC 6.3, RBC 3.76 L, Hgb 11.9 L, Hct 37.0, MCV 98.4, MCH 31.6, MCHC 32.2, RDW Std Deviation 56.8 H, RDW Coeff of Ermelinda 15.7 H, Plt Count 160, MPV 9.9, Immature Gran % (Auto) 0.500, Neut % (Auto) 77.7 H, Lymph % (Auto) 11.2 L, Yancey % (Auto) 10.4 H, Eos % (Auto) 0.0, Baso % (Auto) 0.2, Absolute Neuts (auto) 4.9, Absolute Lymphs (auto) 0.70 L, Nucleated RBC % 0 06/13/21 03:35: Sodium 137, Potassium 4.2, Chloride 95 L, Carbon Dioxide 39.0 H, Anion Gap 3 L, BUN 14, Creatinine 0.49 L, Estim Creat Clear Calc 43.27, Est GFR (MDRD) Af Amer 158, Est GFR (MDRD) Non-Af 131, BUN/Creatinine Ratio 28.4 H, Glucose 84, Calcium 7.7 L, Total Bilirubin 0.40, AST 16, ALT 23, Alkaline Phosphatase 53, Total Protein 5.9 L, Albumin 2.8 L, Globulin 3.1, Albumin/Globulin Ratio 0.9 Micro: Microbiology 06/10/21 10:28 Blood Culture (Wb) - Anticubital Left Blood Culture - Preliminary No growth in 48 hours. 06/10/21 15:42 Mucosa - Nose Rapid RSV (DFA) - Final 06/10/21 15:42 Mucosa - Nose Influenza Types A,B Direct FA (EJ) - Final 06/10/21 10:36 Nasal Secretion SARS-CoV-2 Antigen (Rapid) - Final SARS-CoV-2 (COVID 19) Physical Exam Const alert and no apparent distress General Appearance: cooperative HEENT normocephalic, head/scalp atraumatic and moist oral mucous membranes Eyes PERRL, EOMs intact bilaterally and conjunctivae normal Neck supple General: trachea midline Chest inspection of chest normal Resp Auscultation: Negative for rales, rhonchi, wheezes or diminished lung sounds Cardio regular rate and regular rhythm GI normal to inspection, nondistended, normoactive bowel sounds Extremity no clubbing, cyanosis or edema Skin no rashes or lesions noted Neuro CN's II-XII intact bilaterally, moves all extremities and no focal motor deficits Psych Mood & Affect: anxious Charges/Coding Visit Charges Inpatient E&M: 21433 Subs Hosp L2
--- NOTE | 2021-06-13 06:58 | NURSING ---
Pt transferred to [facility] w/ [facility].
[2021-06-13] MEDS: Ipratropium/Albuterol Sulfate 3 ML AMPUL.NEB INHALATION ×5 (07:53→23:38)
[2021-06-13] MEDS: Levothyroxine 137 MCG Tablet PO (09:50)
[2021-06-13] MEDS: Aspirin 81 MG TAB.CHEW PO (09:50)
[2021-06-13] MEDS: 0.9% Saline Lock 10 ML Syringe IV (09:51)
[2021-06-13] MEDS: Enoxaparin 40 MG/0.4 ML Syringe SC (09:51)
[2021-06-13] MEDS: Lisinopril 5 MG Tablet PO (09:51)
[2021-06-13] MEDS: dexAMETHasone 10 MG/ML Vial 6 MG IV (09:51)
[2021-06-13] MEDS: guaiFENesin 10 ML UDC (200MG/10ML) PO ×3 (11:55→23:45)
[2021-06-13] MEDS: guaiFENesin 1,200 MG Tablet 1200 MG PO ×2 (11:55→21:21)
--- NOTE | 2021-06-13 12:37 | PN.HOSP_ITS ---
Subjective Subjective Patient seen and examined. She complained of some anxiety overnight, and said she felt she was having difficulty breathing. Patient is now on 4 L of oxygen. Review of systems otherwise negative. Objective Data Objective Data Vital Signs: Vital Signs Temp Pulse Resp BP Pulse Ox 98.2 F 68 18 105/55 L 94 06/13/21 10:00 06/13/21 11:23 06/13/21 11:23 06/13/21 10:00 06/13/21 10:00 Oxygen Flow Rate (L/min) 2 Oxygen Delivery Method Nasal Cannula Weight: 157 lb 13.616 oz Body Mass Index (BMI) 27.5 Intake & Output: Intake and Output for Last 24 Hours 06/11/21 06/12/21 06/13/21 23:59 23:59 23:59 Intake Total 808 / 808 844 / 844 300 / 300 Output Total 1000 / 1000 0 / 0 Balance 808 / 808 -156 / -156 300 / 300 Lab / Micro Data Result Diagrams: 06/13/21 03:35 06/13/21 03:35 Labs: Laboratory Results - last 24 hr 06/13/21 03:35: WBC 6.3, RBC 3.76 L, Hgb 11.9 L, Hct 37.0, MCV 98.4, MCH 31.6, MCHC 32.2, RDW Std Deviation 56.8 H, RDW Coeff of Ermelinda 15.7 H, Plt Count 160, MPV 9.9, Immature Gran % (Auto) 0.500, Neut % (Auto) 77.7 H, Lymph % (Auto) 11.2 L, [place] % (Auto) 10.4 H, Eos % (Auto) 0.0, Baso % (Auto) 0.2, Absolute Neuts (auto) 4.9, Absolute Lymphs (auto) 0.70 L, Nucleated RBC % 0 06/13/21 03:35: Sodium 137, Potassium 4.2, Chloride 95 L, Carbon Dioxide 39.0 H, Anion Gap 3 L, BUN 14, Creatinine 0.49 L, Estim Creat Clear Calc 43.27, Est GFR (MDRD) Af Amer 158, Est GFR (MDRD) Non-Af 131, BUN/Creatinine Ratio 28.4 H, Glucose 84, Calcium 7.7 L, Total Bilirubin 0.40, AST 16, ALT 23, Alkaline Phosphatase 53, Total Protein 5.9 L, Albumin 2.8 L, Globulin 3.1, Albumin/Globulin Ratio 0.9 Micro: Microbiology 06/10/21 10:28 Blood Culture (Wb) - Anticubital Left Blood Culture - Preliminary No growth in 48 hours. 06/10/21 15:42 Mucosa - Nose Rapid RSV (DFA) - Final 06/10/21 15:42 Mucosa - Nose Influenza Types A,B Direct FA (EJ) - Final 06/10/21 10:36 Nasal Secretion SARS-CoV-2 Antigen (Rapid) - Final SARS-CoV-2 (COVID 19) Physical Exam Const alert, oriented x3 and no apparent distress Exam Limitations: no limitations HEENT head/scalp atraumatic and moist oral mucous membranes Head and Scalp: normocephalic Eyes PERRL, EOMs intact bilaterally and conjunctivae normal Neck no lymphadenopathy Resp Resp Narrative: Mildly diminished breath sounds bibasilarly. No wheezes or crackles. On 4L of oxygen Cardio regular rate, regular rhythm, S1 normal heart sound, S2 normal heart sound and no murmurs GI normal to inspection, nondistended, normoactive bowel sounds, soft to palpation, non-tender and non-distended Extremity normal to inspection, full ROM and no clubbing, cyanosis or edema Skin no rashes or lesions noted Neuro oriented x3, CN's II-XII intact bilaterally and moves all extremities Sensorium / Orientation: awake and alert Psych affect normal Assessment & Plan Assessment/Plan (1) COVID-19: (2) Acute hypoxemic respiratory failure: PLAN: ##Acute hypercapnic and hypoxic respiratory failure due to covid 19 pneumonia * now off BIPAP and on 4L of oxygen. * Patient is vaccinated x2 with Moderna but has not yet gotten the booster * On Decadron and remdesivir * Titrate oxygen to maintain saturation above 90% * Diurese as needed to maintain euvolemic status. * on seroquel to help with anxiety * Influenza and RSV are negative. BNP was only 40.9, and D-dimer was 0.48 * critical care on board * #CAD s/p stents: * On aspirin,plavix, statin and carvedilol * #Hypertension: On carvedilol #Hypothyroidism: On Synthroid #Heart failure with preserved ejection fraction * stable. BNP was 40. * #History of breast cancer: on tamoxifen. #Nicotine dependence: counseled to quit. On nicotine patch DVT prophylaxis: lovenox Disposition: anticipate likely DC tomorrow if she does well with walking pulse ox. Charges/Coding Visit Charges Inpatient E&M: 36600 Subs Hosp L2
--- NOTE | 2021-06-13 15:51 | NURSING ---
Pt currently sitting up in bed getting a breathing treatment. Pt remains at 95% on 2L. pt does get SOB with talking. occasional cough noted. patient denies needs at this time.
--- NOTE | 2021-06-13 17:55 | NURSING ---
Assisted patient back into bed from the chair. patient tolerated well. minimal SOB noted. Pt remains 94% on 2L. denies further needs at this time.
[2021-06-13] MEDS: Tamoxifen 10 MG Tablet 20 MG PO (21:21)
[2021-06-13] MEDS: QUEtiapine 25 MG Tablet PO (21:22)
[2021-06-13] MEDS: Pantoprazole Sodium 20 MG Tablet PO (21:22)
[2021-06-13] MEDS: Atorvastatin Calcium 40 MG Tablet PO (21:22)
[2021-06-13] MEDS: Clopidogrel Bisulfate 75 MG Tablet PO (21:22)
--- NOTE | 2021-06-13 23:22 | CPS ---
pt refusing BiPAP
[2021-06-14] VITALS (15 sets, daily range): BP systolic 100–122; BP diastolic 50–68; PULSE 62–86; RESP 16–22; TEMP 36.6–37.2; O2SAT 85–99
[2021-06-14] MEDS: Ipratropium/Albuterol Sulfate 3 ML AMPUL.NEB INHALATION ×4 (02:46→14:20)
[2021-06-14] MEDS: guaiFENesin 10 ML UDC (200MG/10ML) PO ×2 (03:48→09:23)
[2021-06-14 06:30] LABS: Absolute Lymphocyte Count 0.77 X10^3/uL (0.83-4.51); Absolute Neutrophil Count 6.2 X10^3/uL (2.0-7.7); Basophil# 0.01 X10^3/uL; Basophil% 0.1 % (0-1); Eosinophil# 0.01 X10^3/uL; Eosinophils% 0.1 % (0-5); Hematocrit 35.4 % (37-47); Hemoglobin 11.9 g/dL (12.0-15.0); Lymphocyte # 0.77 X10^3/ul (0.83-4.51); Mean Corp Hgb Conc 33.6 g/dL (32-36); Mean Corpuscular Hgb 31.1 pg (27.0-32.0); Mean Corpuscular Volume 92.4 fL (81-99); Mean Platelet Vol. 9.5 fl (6.2-12.0); Monocyte# 0.72 X10^3/uL; Monocyte% 9.3 % (0-10); NRBC Flagged by Analyzer 0 % (0-5); Neutrophil # 6.16 X10^3/uL (2.7-7.7); Platelet Count 135 K/mm3 (150-450); RBC Distribution Width CV 15.3 % (11.6-14.6); RBC Distribution Width SD 51.8 fl (35.1-43.9); Red Blood Count 3.83 M/mm3 (4.2-5.4); White Blood Count 7.7 K/mm3 (4.4-11.0)
[2021-06-14 07:00] LABS: ALB/GLOB Ratio 0.8 RATIO (0.9-2.4); AST(SGOT) 10 U/L (15-37); Alanine Aminotransfer ALT/SGPT 23 U/L (13-56); Albumin, Serum 2.8 g/dL (3.2-5.0); Alkaline Phosphatase 52 U/L (45-117); Anion Gap 3 (5-15); BUN 13 mg/dL (7-18); BUN/Creat Ratio 25.2 RATIO (10-20); Calcium,Total 8.2 mg/dL (8.5-10.1); Chloride 95 mmol/L (98-107); Creatinine, Serum 0.52 mg/dL (0.55-1.02); EST Glomerular Filtration Rate 124 mL/min (>60); Est Glom Filt Rate - Afr Amer 150 mL/min (>60); Estimated Creatinine Clearance 43.27 ml/min; Globulin 3.3 g/dL (2.2-4.2); Glucose 79 mg/dL (74-106); Protein, Total 6.1 g/dL (6.4-8.2); Sodium Level 136 mmol/L (136-145)
[2021-06-14] MEDS: Enoxaparin 40 MG/0.4 ML Syringe SC (08:37)
[2021-06-14] MEDS: Aspirin 81 MG TAB.CHEW PO (08:37)
[2021-06-14] MEDS: guaiFENesin 1,200 MG Tablet 1200 MG PO (08:38)
[2021-06-14] MEDS: Levothyroxine 137 MCG Tablet PO (08:38)
[2021-06-14] MEDS: 0.9% Saline Lock 10 ML Syringe IV (09:20)
[2021-06-14] MEDS: dexAMETHasone 10 MG/ML Vial 6 MG IV (09:20)
--- NOTE | 2021-06-14 09:43 | CASEMGMT ---
AIME CANTU called patient in room. Patient states that she does not need HHC at discharge. Patient states that she just wanted someone to call if she has a coughing fit. AIME CANTU instructed that a Palliative Consult was placed and they will be following up with her once she is out of covid precautions. AIME CANTU instructed patient that she can call PCP office and speak to someone regarding what to do when she is having increased SOB. Patient states he has calls out to her son to inquire when he will be able to pick her up today. Patient states she has oxygen tank at home and family will bring in when she is picked up. Patient had no further questions or concerns at this time.
--- NOTE | 2021-06-14 12:57 | DS.PCM_ITS ---
Providers Date of Admission: 06/10/21 Primary Care Physician: Dr. Mike Lino MD Consultations 06/11/21 18:45 Consult: [employer] / Pulmonary Medicine Routine Consulting Provider: Pulmonary Medicine sonali Wall Reason for Consult: Acute hypoxic respiratory failure secondary to COVID-19 PNA. EMERGENT Consult: No MD Notified: Yes Date Notified: 06/11/21 Time Notified: 17:51 Method of Notification: Provider Initiated Reason For Visit: ACUTE COVID/COPD EXACERBATION Diagnosis Discharge Diagnosis (1) COVID-19: Status: Acute Code(s): U07.1 - COVID-19 (2) Acute hypoxemic respiratory failure: Status: Chronic Code(s): J96.01 - Acute respiratory failure with hypoxia Medications at Discharge Home Medications albuterol sulfate 1 puff INHALATION DAILY 10/21/17 albuterol sulfate 1 puff INHALATION DAILY 10/21/17 fluticasone furoate-vilanterol 1 puff INHALATION QODAY 10/21/17 levothyroxine 137 mcg PO DAILY 05/12/19 aspirin 81 mg PO DAILY@0800 #30 tab.chew 06/28/19 tamoxifen 20 mg PO DAILY 90 Days #90 tablet 07/03/20 fluticasone furoate 200 mcg-vilanterol 25 mcg/dose inhalation powder 1 inh INHALATION DAILY #60 each 09/20/20 tiotropium bromide 2.5 mcg/actuation mist for inhalation 2 puff INHALATION DAILY #4 gm 09/20/20 clopidogrel 75 mg tablet 75 mg PO DAILY #90 tablet 11/24/20 lisinopril 5 mg tablet 5 mg PO DAILY #90 tab 01/22/21 carvedilol 3.125 mg tablet 3.125 mg PO BID #180 tab 02/14/21 cholecalciferol (vitamin D3) 125 mcg (5,000 unit) capsule 125 mcg PO DAILY 02/23/21 esomeprazole magnesium 20 mg capsule,delayed release 20 mg PO DAILY cap 02/23/21 atorvastatin 40 mg tablet 40 mg PO DAILY #90 tablet 05/28/21 dexamethasone 6 mg PO DAILY #5 tab 06/14/21 Hospital Course Operations None Summary of Care Provided Minutes Spent on Discharge: 45 Hospital Course: Patient is a 75-year-old female with past medical history as outlined was admitted through the ED on 06/10/2021 with a complaint of shortness of breath which has been going on for some weeks. Patient has chronic respiratory failure due to COPD and wears 2 L of oxygen at home. She says she has been feeling short of breath for some weeks and had gone through 3 courses of prednisone. She had been started on dexamethasone few days before admission by her PCP. Her shortness of breath worsened the night before admission so she came into the ED. COVID test done was positive. Patient had received both vaccinations but had yet to receive a booster. Her saturation in the ED was 88% which improved to 93% on 3 L of oxygen. She was admitted and managed for acute on chronic hypoxic respiratory failure due to COVID-19 infection. She was put on decadron and remdesivir. Her shortness of breath worsened so she was transferred to the ICu emergently after she was placed on BIPAP. She didnt require intubation nad her shortness of brath gradually improved. SHe was transferred back out of the ICU to the regular floor. She gradually felt better and had walking pulse ox on 06/14/2021 which showed that she required her baseline 2 L of oxygen at rest and with exertion. She was discharged home on 06/14/2021. Dexamethasone to complete a 10-day course. She is to follow-up with her primary care doctor in 1 to 2 weeks. Patient was seen and examined prior to discharge. She had no active complaints. She said she had had some coughing over the night but this had resolved. Review of systems otherwise negative. Labs and vitals reviewed. Medication reviewed and reconciled. Physical Exam Const alert, oriented x3 and no apparent distress Constitutional Narrative: anxious General Appearance: cooperative, comfortable and well kempt Exam Limitations: no limitations HEENT normocephalic, head/scalp atraumatic and moist oral mucous membranes Eyes PERRL, EOMs intact bilaterally and conjunctivae normal Neck no lymphadenopathy Resp Resp Narrative: Mildly diminished breath sounds bibasilarly. No wheezes or crackles. On 2L of oxygen Cardio regular rate, regular rhythm, S1 normal heart sound, S2 normal heart sound and no murmurs GI normal to inspection, nondistended, normoactive bowel sounds, soft to palpation, non-tender and non-distended Extremity normal to inspection, full ROM and no clubbing, cyanosis or edema Skin no rashes or lesions noted Neuro oriented x3, CN's II-XII intact bilaterally and moves all extremities Sensorium / Orientation: awake and alert Psych affect normal Weight / BMI Weight Weight: 154 lb 12.232 oz Body Mass Index (BMI) 27.5 ABG / Lab / Microbiology Data Result Diagrams: 06/14/21 06:15 06/14/21 06:15 Laboratory: Laboratory Results - last 24 hr 06/14/21 06:15: WBC 7.7, RBC 3.83 L, Hgb 11.9 L, Hct 35.4 L, MCV 92.4 D, MCH 31.1, MCHC 33.6, RDW Std Deviation 51.8 H, RDW Coeff of Ermelinda 15.3 H, Plt Count 135 L, MPV 9.5, Immature Gran % (Auto) 0.500, Neut % (Auto) 80.0 H, Lymph % (Auto) 10.0 L, [place] % (Auto) 9.3, Eos % (Auto) 0.1, Baso % (Auto) 0.1, Absolute Neuts (auto) 6.2, Absolute Lymphs (auto) 0.77 L, Nucleated RBC % 0 06/14/21 06:15: Sodium 136, Potassium 4.0, Chloride 95 L, Carbon Dioxide 38.0 H, Anion Gap 3 L, BUN 13, Creatinine 0.52 L, Estim Creat Clear Calc 43.27, Est GFR (MDRD) Af Amer 150, Est GFR (MDRD) Non-Af 124, BUN/Creatinine Ratio 25.2 H, Glucose 79, Calcium 8.2 L, Total Bilirubin 0.60, AST 10 L, ALT 23, Alkaline Phosphatase 52, Total Protein 6.1 L, Albumin 2.8 L, Globulin 3.3, Albumin/Globulin Ratio 0.8 L Microbiology: Microbiology 06/10/21 10:28 Blood Culture (Wb) - Anticubital Left Blood Culture - Preliminary No growth in 48 hours. 06/10/21 15:42 Mucosa - Nose Rapid RSV (DFA) - Final 06/10/21 15:42 Mucosa - Nose Influenza Types A,B Direct FA (EJ) - Final 06/10/21 10:36 Nasal Secretion SARS-CoV-2 Antigen (Rapid) - Final SARS-CoV-2 (COVID 19) D/C Instructions Discharge Diet: Low fat / Low cholesterol Discharge Activity: Return to Normal Activity Weight Bearing Status: Weight bearing as tolerated Call your doctor if you observe: Fever of 101 or Higher, Shortness of breath, Dizziness, Swelling in the ankles and Chest pain Meaningful Use Info Meaningful Use Diagnoses (Choose all that apply): None applicable Discharge Plan Admission Admit Date/Time: 06/10/21 11:06 Primary Reason for Your Visit: acute on chronic hypoxic respiratory failure due to covid Attending Provider: Gia Calhoun Primary Care Provider: Mike Lino Consulting Providers: Johann Lugo ; Ruiz Vyas ; Sherine Black ROLL UP OPERATOR Instructions Patient Instructions: Coronavirus Disease 2019 (COVID-19): Caring for Yourself or Others Discharge Orders/Prescriptions Prescriptions: New dexamethasone 6 mg tablet 6 mg PO DAILY Qty: 5 RF: 0 Continued Breo Ellipta 200-25 mcg/dose blister with device 1 inh INHALATION DAILY Qty: 60 RF: 6 Spiriva Respimat 2.5 mcg/actuation mist 2 puff INHALATION DAILY Qty: 4 RF: 6 esomeprazole magnesium 20 mg capsule,delayed release(DR/EC) 20 mg PO DAILY RF: 0 cholecalciferol (vitamin D3) 125 mcg (5,000 unit) capsule 125 mcg PO DAILY RF: 0 albuterol sulfate 2.5 MG/3 ML solution for nebulization 1 puff INHALATION DAILY RF: 0 albuterol sulfate 1 INHALER inhaler 1 puff INHALATION DAILY RF: 0 fluticasone furoate-vilanterol 1 EACH blister with device 1 puff INHALATION QODAY RF: 0 levothyroxine 137 MCG tablet 137 mcg PO DAILY RF: 0 tamoxifen 20 MG tablet 20 mg PO DAILY 90 Days Qty: 90 RF: 3 aspirin 81 MG tablet,chewable 81 mg PO DAILY@0800 Qty: 30 RF: 1 clopidogrel [Plavix] 75 mg tablet 75 mg PO DAILY Qty: 90 RF: 4 lisinopril 5 mg tablet 5 mg PO DAILY Qty: 90 RF: 3 carvedilol 3.125 mg tablet 3.125 mg PO BID Qty: 180 RF: 3 atorvastatin 40 mg tablet 40 mg PO DAILY Qty: 90 RF: 3 Referrals / Follow Up: Mike Lino MD [Primary Care Provider] - Within 3 Months Disposition Disposition (needs filled in before D/C Order can be placed): Home, Self Care Charges/Coding Visit Charges Inpatient E&M: 51390 Disch Hosp
--- NOTE | 2021-06-14 13:54 | NURSING ---
concur with [employer]ALITY [employer]OL EXPERT
== END 2021-06-14 17:10 | disposition home or self-care (01) | DRG 177 ==
LOC: ED 11:09 → MS3 11:29 → ICU 06-11 18:37 → MS3 06-13 06:58
PROVIDERS: Internal Medicine Critical Care Medicine; Admitting Provider Internal Medicine; Emergency Provider Emergency Medicine; PCP Family Medicine; Visit Provider Student in an Organized Health Care Education/Training Program
DX: U07.1 COVID-19 (principal); J96.21 Acute and chronic respiratory failure with hypoxia; J12.82 Pneumonia due to coronavirus disease 2019; J96.22 Acute and chronic respiratory failure with hypercapnia; I50.42 Chronic combined systolic (congestive) and diastolic (congestive) heart failure; J44.0 Chronic obstructive pulmonary disease with (acute) lower respiratory infection; J44.1 Chronic obstructive pulmonary disease with (acute) exacerbation; I11.0 Hypertensive heart disease with heart failure; C50.911 Malignant neoplasm of unspecified site of right female breast; E03.9 Hypothyroidism, unspecified; I25.10 Atherosclerotic heart disease of native coronary artery without angina pectoris; F17.210 Nicotine dependence, cigarettes, uncomplicated; K21.9 Gastro-esophageal reflux disease without esophagitis; I25.5 Ischemic cardiomyopathy; Z79.02 Long term (current) use of antithrombotics/antiplatelets; Z79.82 Long term (current) use of aspirin; Z79.899 Other long term (current) drug therapy; Z79.51 Long term (current) use of inhaled steroids
CPT/HCPCS: 36415; 36600; 71045; 80048; 80053; 82803; 83605; 83880; 84484; 85025; 85379; 86140; 87040; 87426; 87804; 87807; 93005; 94002; 94003; 94640; 94660; 94667; 94668; 94762; 97110; 97163; 97166; 97530; 97535; 97802; 99251; 99285; A4216; G0463

== ENCOUNTER 2021-07-26 11:01 | Inpatient (IN) | payer MEDICARE, SELFPAY ==
[2020-07-26 12:02] VITALS: BMI 27.8
[2021-07-26] VITALS (13 sets, daily range): BP systolic 83–113; BP diastolic 41–64; PULSE 68–115; RESP 18–33; TEMP 36.9–37; O2SAT 90–97; BMI 26.1; BMI 25.7
--- NOTE | 2021-07-26 11:26 | RAD_ITS ---
STUDY: X-RAY CHEST REASON FOR EXAM: Female, 75 years old. Shortness of Breath TECHNIQUE: Single AP portable view of the chest. COMPARISON: Comparison is made with prior study dated 06/10/2021. FINDINGS: EKG electrodes are seen. There is hyperinflation of the lungs consistent with chronic obstructive lung disease (COPD). There is no demonstrated pleural abnormality. Stable mild stable mild increased markings at the left lung base suggestive of a left basilar scarring. Normal mediastinum and rah. Normal visualized pulmonary arteries. There is atherosclerotic calcification of the aortic arch with tortuosity. There are diffuse degenerative changes of the visualized thoracic spine. Normal visualized ribs, clavicles, and shoulders. There is no demonstrated abnormality of the visualized soft tissue structures of the upper abdomen. RAD/Chest 1 View (Portable) IMPRESSION: Hyperinflation. Stable mild increased markings at the left lung base suggestive of linear scarring. Electronically Signed: Chang Shepard MD at 12:15 EST ,
--- NOTE | 2021-07-26 11:26 | EKG12_ITS ---
Test Reason : SOB Blood Pressure : / mmHG Vent. Rate : 068 BPM Atrial Rate : 068 BPM P-R Int : 190 ms QRS Dur : 068 ms QT Int : 388 ms P-R-T Axes : 078 086 065 degrees QTc Int : 412 ms Normal sinus rhythm Low voltage QRS (Limb Leads) Confirmed by KAUR SALDIVAR, FIOR ([id number]), film and video editor DENIS BLOUNT ([id number]) on 07/30/2021 11:14:16 AM Referred By: ULYSSES Confirmed By:FIOR DIETRICH MD
--- NOTE | 2021-07-26 11:28 | ED.VIS.DYS ---
HPI History of Present Illness Chief Complaint: Shortness of Breath Narrative Narrative: Patient presents with increased difficulty breathing over the last 7 days. She states she has been treated for cellulitis. She went saw her primary care physician last Friday, and was placed on antibiotics, and additionally started a prednisone burst and completed it. It was for 5 days. She usually wears oxygen 2 L at all times. She states that she has not had to increase her oxygen consumption per nasal cannula/turn it up. Additionally, she used to [id number] aerosolized treatments today, with the second 1 helping. She becomes more short of breath on exertion. She denies any chest pain or other symptoms. She states that she has recently recovered from both RSV and COVID-19. [facility] Medical History Abnormal breast biopsy Acute hypoxemic respiratory failure (06/20/19) Antineoplastic chemotherapy induced anemia Asthma Asthma with COPD Atherosclerosis of coronary artery of [place] heart without angina pectoris Breast cancer Breast cancer, right breast Chronic systolic (congestive) heart failure COPD (chronic obstructive pulmonary disease) COVID-19 Elevated troponin (10/11/19) Encounter for insertion of venous access port Encounter for monitoring cardiotoxic drug therapy Foot swelling Fracture, skull History of alcohol abuse History of elevated glucose History of non-ST elevation myocardial infarction (NSTEMI) (10/11/19) Hypokalemia due to loss of potassium Hypothyroidism (acquired) Ileus Ischemic cardiomyopathy Large bowel obstruction Nicotine dependence port placement Prediabetes 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 Home Medications albuterol sulfate 1 puff INHALATION DAILY 10/21/17 [History Last Taken 10/11/19] albuterol sulfate 1 puff INHALATION DAILY 10/21/17 [History Last Taken 10/11/19] fluticasone furoate-vilanterol 1 puff INHALATION QODAY 10/21/17 [History Last Taken 10/09/19] levothyroxine 137 mcg PO DAILY 05/12/19 [History Last Taken 06/09/21 06:00] aspirin 81 mg PO DAILY@0800 #30 tab.chew 06/28/19 [Rx Last Taken 10/11/19] fluticasone furoate 200 mcg-vilanterol 25 mcg/dose inhalation powder 1 inh INHALATION DAILY #60 each 09/20/20 [Rx Last Taken Unknown] tiotropium bromide 2.5 mcg/actuation mist for inhalation 2 puff INHALATION DAILY #4 gm 09/20/20 [Rx Last Taken Unknown] clopidogrel 75 mg tablet 75 mg PO DAILY #90 tablet 11/24/20 [Rx Last Taken 06/09/21 22:00] lisinopril 5 mg tablet 5 mg PO DAILY #90 tab 01/22/21 [Rx Last Taken 06/09/21 10:00] carvedilol 3.125 mg tablet 3.125 mg PO BID #180 tab 02/14/21 [Rx Last Taken Unknown] cholecalciferol (vitamin D3) 125 mcg (5,000 unit) capsule 125 mcg PO DAILY 02/23/21 [History Last Taken 06/09/21 08:00] esomeprazole magnesium 20 mg capsule,delayed release 20 mg PO DAILY cap 02/23/21 [History Last Taken 06/09/21 22:00] atorvastatin 40 mg tablet 40 mg PO DAILY #90 tablet 05/28/21 [Rx Last Taken Unknown] dexamethasone 6 mg PO DAILY #5 tab 06/14/21 [Rx Last Taken Unknown] tamoxifen 20 mg tablet 20 mg PO DAILY 90 Days #90 tablet 07/12/21 [Rx Last Taken Unknown] sulfamethoxazole-trimethoprim 1 tab PO Q12H 07/26/21 [History Last Taken Unknown] Allergy/AdvReac Type Severity Reaction Status Date / Time No Known Allergies Allergy Verified 07/12/21 13:34 Family History Brother Cancer Father Lung cancer Aunt Cancer Mother Asthma Thyroid disorder Heart disease Surgical History H/O toe surgery H/O ultrasound guided needle biopsy History of appendectomy History of back surgery History of coronary artery stent placement (06/25/19) History of modified radical mastectomy of right breast Social History household members: family Smoking Status: Current every day smoker tobacco type: cigarettes alcohol intake: never substance use type: does not use ROS ROS ED ROS Narrative Constitutional: No fever, no chills. HEENT: No sore throat. No neck pain. No loss of vision. No rhinorrhea. Cardiovascular: No chest pain. No palpitations. No pedal edema. Respiratory: Occasional cough, positive, increasing shortness of breath. Dyspnea on exertion. Abdominal: No abdominal pain. No nausea. No vomiting. Genitourinary: No dysuria. No hematuria. Musculoskeletal: No myalgias. No arthralgias. Neurologic: No headaches. No dizziness. No lightheadedness. Skin: No rash. No change in color-but being treated for cellulitis of lower extremity. Psychiatric: No depression. No anxiety. EXAM Physical Exam Narrative Exam Narrative: Afebrile. Vital signs noted. HEENT: Normocephalic. Atraumatic. PERRL, EOMI. Neck soft and supple. No point tenderness or step off. Cardiovascular: Regular rate and rhythm. No murmurs, rubs, or gallops appreciated. Respiratory: No tachypnea. Decreased sounds bilateral bases. Occasional expiratory wheeze. Moving a fair amount of air. Gastrointestinal: Abdomen soft, nontender, with normoactive bowel sounds. No rebound or guarding. Neurological: Awake. Alert. Nonfocal, nonlateralizing. Skin: No rash. Mild erythema right lower extremity. No pallor. Musculoskeletal: No pedal edema. Full range of motion extremities. Const Vital Signs: 07/26/21 11:04 07/26/21 11:45 07/26/21 12:24 Temperature 98.4 F Temperature Source Temporal Pulse Rate 115 H 79 68 Respiratory Rate 33 H 28 H 18 Respiratory Pattern Tachypnea Blood Pressure 83/64 L 102/53 L Blood Pressure Mean 70 69 Pulse Ox 95 95 Oxygen Delivery Method Nasal Cannula Nasal Cannula MDM MDM MDM Narrative Medical decision making narrative: Comprehensive work-up was pursued. Suspicion is high for COPD exacerbation given her history of COPD, and emphysema, and her continuing smoking. Her agricultural extension agent is Dr. Vyas. She was administered a DuoNeb aerosolized treatment and administered methylprednisolone 125 mg intravenously. EKG demonstrates normal sinus rhythm at 68 bpm without ectopy or acute ST changes. Her laboratory work is grossly unremarkable with a normal white count of 9.2 and normal hemoglobin of 13.7, platelet count normal at 304. She does have mild hyponatremia with a sodium of 132. CO2 elevated on electrolyte panel at 35 consistent with her COPD. Troponin and BNP are normal. She was ambulated on her 2 L of oxygen per nasal cannula, and experienced desaturation into the low 80s. At this point in time, given her COPD exacerbation, tachypnea with dyspnea on exertion, and hypoxia, I discussed the patient with Dr. Pope for admission. I do feel that she is stable for the general medical floor. Disposition is admitted in stable condition. Lab Data Attestation: I reviewed the patient's lab results. Labs: Laboratory Results - last 24 hr 07/26/21 07/26/21 07/26/21 11:50 11:50 11:50 WBC 9.2 RBC 4.20 Hgb 13.7 Hct 40.5 MCV 96.4 MCH 32.6 H MCHC 33.8 RDW Std Deviation 52.0 H RDW Coeff of Ermelinda 14.7 H Plt Count 304 MPV 9.6 Immature Gran % (Auto) 0.500 Neut % (Auto) 79.6 H Lymph % (Auto) 10.6 L [place] % (Auto) 7.9 Eos % (Auto) 1.0 Baso % (Auto) 0.4 Absolute Neuts (auto) 7.3 Absolute Lymphs (auto) 0.97 Nucleated RBC % 0 Sodium 132 L Potassium 4.6 Chloride 94 L Carbon Dioxide 35.0 H Anion Gap 3 L BUN 15 Creatinine 0.93 Estim Creat Clear Calc 46.52 Est GFR (MDRD) Af Amer 76 Est GFR (MDRD) Non-Af 63 BUN/Creatinine Ratio 16.1 Glucose 107 H Calcium 8.5 Troponin I High Sens 6 B-Natriuretic Peptide 13.6 Radiography Diagnostic Testing: Clinical Impression(s) from Imaging Studies Chest X-Ray 07/26/21 11:26 IMPRESSION: Hyperinflation. Stable mild increased markings at the left lung base suggestive of linear scarring. Electronically Signed: Chang Shepard MD at 12:15 EST , Discharge Plan Dx/Rx/DC Orders Clinical Impression: COPD exacerbation, Hypoxia, MODI (dyspnea on exertion) Disposition Disposition: Acute Care [facility]
[2021-07-26] MEDS: Ipratropium/Albuterol Sulfate 3 ML AMPUL.NEB INHALATION ×4 (11:50→22:59)
[2021-07-26] MEDS: MethylPREDNISolone 125 MG/2 ML Vial IV (11:53)
[2021-07-26 12:01] LABS: Absolute Lymphocyte Count 0.97 X10^3/uL (0.83-4.51); Absolute Neutrophil Count 7.3 X10^3/uL (2.0-7.7); Basophil# 0.04 X10^3/uL; Basophil% 0.4 % (0-1); Eosinophil# 0.09 X10^3/uL; Hematocrit 40.5 % (37-47); Hemoglobin 13.7 g/dL (12.0-15.0); Lymphocyte # 0.97 X10^3/ul (0.83-4.51); Lymphocyte % 10.6 % (19-41); Mean Corp Hgb Conc 33.8 g/dL (32-36); Mean Corpuscular Hgb 32.6 pg (27.0-32.0); Mean Corpuscular Volume 96.4 fL (81-99); Mean Platelet Vol. 9.6 fl (6.2-12.0); Monocyte# 0.72 X10^3/uL; Monocyte% 7.9 % (0-10); NRBC Flagged by Analyzer 0 % (0-5); Neutrophil % 79.6 % (47-70); Platelet Count 304 K/mm3 (150-450); RBC Distribution Width CV 14.7 % (11.6-14.6); White Blood Count 9.2 K/mm3 (4.4-11.0)
[2021-07-26 12:18] LABS: Anion Gap 3 (5-15); BUN 15 mg/dL (7-18); BUN/Creat Ratio 16.1 RATIO (10-20); Calcium,Total 8.5 mg/dL (8.5-10.1); Chloride 94 mmol/L (98-107); Creatinine, Serum 0.93 mg/dL (0.55-1.02); EST Glomerular Filtration Rate 63 mL/min (>60); Est Glom Filt Rate - Afr Amer 76 mL/min (>60); Estimated Creatinine Clearance 46.52 ml/min; Glucose 107 mg/dL (74-106); Potassium 4.6 mmol/L (3.5-5.1); Sodium Level 132 mmol/L (136-145); Troponin-I HS 6 pg/mL (3.0-54.0)
[2021-07-26 12:34] LABS: BNP,B-Type NATRIURETIC PEPTIDE 13.6 pg/mL (0-100)
--- NOTE | 2021-07-26 13:14 | PCM.HP.STD ---
HPI - General General Date of Admission: 07/26/21 Date of Service: 07/26/21 Chief Complaint: Shortness of breath HPI Narrative NURYS DIAZ, is a 75 F who presents with shortness of breath. Patient has underlying history of chronic combined respiratory failure on home oxygen who continues to smoke. Presented to the emergency department with shortness of breath. Patient states it started about a week prior to her admission. Has noticed increasing work of breathing with minimal activity. He also did notice wheezing as well as cough. Patient also reports redness involving the right lower extremity for which she was treated with Bactrim. Presented to the emergency department and assessment of COPD with acute exacerbation made admitted to regular nursing floor for further management [facility] Medical History Abnormal breast biopsy Acute hypoxemic respiratory failure (06/20/19) Antineoplastic chemotherapy induced anemia Asthma Asthma with COPD Atherosclerosis of coronary artery of [place] heart without angina pectoris Breast cancer Breast cancer, right breast Chronic systolic (congestive) heart failure COPD (chronic obstructive pulmonary disease) COVID-19 Elevated troponin (10/11/19) Encounter for insertion of venous access port Encounter for monitoring cardiotoxic drug therapy Foot swelling Fracture, skull History of alcohol abuse History of elevated glucose History of non-ST elevation myocardial infarction (NSTEMI) (10/11/19) Hypokalemia due to loss of potassium Hypothyroidism (acquired) Ileus Ischemic cardiomyopathy Large bowel obstruction Nicotine dependence port placement Prediabetes 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 Home Medications albuterol sulfate 1 puff INHALATION DAILY 10/21/17 [History Last Taken 07/25/21] fluticasone furoate-vilanterol 1 puff INHALATION BID 10/21/17 [History Last Taken 1 Week Ago ~07/19/21] levothyroxine 137 mcg PO DAILY 05/12/19 [History Last Taken 07/26/21] aspirin 81 mg PO DAILY@0800 #30 tab.chew 06/28/19 [Rx Last Taken 07/26/21] clopidogrel 75 mg tablet 75 mg PO DAILY #90 tablet 11/24/20 [Rx Last Taken 07/26/21] lisinopril 5 mg tablet 5 mg PO DAILY #90 tab 01/22/21 [Rx Last Taken 07/25/21] carvedilol 3.125 mg tablet 3.125 mg PO BID #180 tab 02/14/21 [Rx Last Taken 07/26/21] cholecalciferol (vitamin D3) 125 mcg (5,000 unit) capsule 125 mcg PO DAILY 02/23/21 [History Last Taken 07/26/21] esomeprazole magnesium 20 mg capsule,delayed release 20 mg PO DAILY cap 02/23/21 [History Last Taken 07/25/21] atorvastatin 40 mg tablet 40 mg PO DAILY #90 tablet 05/28/21 [Rx Last Taken 07/25/21] tamoxifen 20 mg tablet 20 mg PO DAILY 90 Days #90 tablet 07/12/21 [Rx Last Taken 07/25/21] prednisone 20 mg PO DAILY 07/26/21 [History Last Taken 07/24/21] sulfamethoxazole-trimethoprim 1 tab PO Q12H 07/26/21 [History Last Taken 07/24/21] Allergy/AdvReac Type Severity Reaction Status Date / Time No Known Allergies Allergy Verified 07/12/21 13:34 Family History Brother Cancer Father Lung cancer Aunt Cancer Mother Asthma Thyroid disorder Heart disease Surgical History H/O toe surgery H/O ultrasound guided needle biopsy History of appendectomy History of back surgery History of coronary artery stent placement (06/25/19) History of modified radical mastectomy of right breast Social History household members: family Smoking Status: Current every day smoker tobacco type: cigarettes alcohol intake: never substance use type: does not use ROS ROS Narrative GENERAL: denies fever, chills, night sweats, weight loss, anorexia HEENT: denies headache, sinus congestion, or drainage, dysphagia RESPIRATORY: cough, sputum production, shortness of breath, dyspnea on exertion CARDIAC: denies chest pain, palpitations, orthopnea, PND GASTROINTESTINAL: denies abdominal pain, nausea, vomiting, melena, GENITOURINARY: denies dysuria, urgency, frequency, heamaturia EXTREMITY: denies swelling MUSCULOSKELETAL: denies current joint pain or tenderness NEUROLOGIC: denies focal numbness, weakness, tingling HEMATOLOGIC: denies easy bruising and/or hemorrhage INTEGUMENT: denies rashes PSYCHIATRIC: denies suicidal or homicidal ideation Vital Signs Vital Signs Vital Signs: 07/26/21 11:04 07/26/21 11:45 07/26/21 12:24 Temperature 98.4 F Temperature Source Temporal Pulse Rate 115 H 79 68 Respiratory Rate 33 H 28 H 18 Respiratory Pattern Tachypnea Blood Pressure 83/64 L 102/53 L Blood Pressure Mean 70 69 Pulse Ox 95 95 Oxygen Delivery Method Nasal Cannula Nasal Cannula Oxygen Flow Rate (L/min) 07/26/21 13:04 Temperature 98.4 F Temperature Source Temporal Pulse Rate 71 Respiratory Rate 23 H Respiratory Pattern Blood Pressure 108/53 L Blood Pressure Mean 71 Pulse Ox 97 Oxygen Delivery Method Nasal Cannula Oxygen Flow Rate (L/min) 2 Weight Weight: 69 kg Body Mass Index (BMI) 26.1 Physical Exam Narrative GENERAL: cooperative HEENT: Atraumatic; EYES; Anicteric, Normal Conjunctiva NECK; supple, normal thyroid, RESPIRATORY: Diminished to auscultation with bilateral wheezes CARDIOVASCULAR: Regular S1 S2, GI: soft, normoactive bowel sounds, : No Renal angle tenderness; EXTREMITIES: No edema, no clubbing, MUSCULOSKELETAL: no muscle wasting NEURO: Awake; no lateralizing signs. SKIN: No Rash PSYCH; Flat affect Results Lab / Micro Data Result Diagrams: 07/26/21 11:50 07/26/21 11:50 Labs: Laboratory Results - last 24 hr 07/26/21 11:50: WBC 9.2, RBC 4.20, Hgb 13.7, Hct 40.5, MCV 96.4, MCH 32.6 H, MCHC 33.8, RDW Std Deviation 52.0 H, RDW Coeff of [place] 14.7 H, Plt Count 304, MPV 9.6, Immature Gran % (Auto) 0.500, Neut % (Auto) 79.6 H, Lymph % (Auto) 10.6 L, [place] % (Auto) 7.9, Eos % (Auto) 1.0, Baso % (Auto) 0.4, Absolute Neuts (auto) 7.3, Absolute Lymphs (auto) 0.97, Nucleated RBC % 0 07/26/21 11:50: Sodium 132 L, Potassium 4.6, Chloride 94 L, Carbon Dioxide 35.0 H, Anion Gap 3 L, BUN 15, Creatinine 0.93, Estim Creat Clear Calc 46.52, Est GFR (MDRD) Af Amer 76, Est GFR (MDRD) Non-Af 63, BUN/Creatinine Ratio 16.1, Glucose 107 H, Calcium 8.5, Troponin I High Sens 6 07/26/21 11:50: B-Natriuretic Peptide 13.6 Radiology Impression Chest X-Ray 07/26/21 11:26 IMPRESSION: Hyperinflation. Stable mild increased markings at the left lung base suggestive of linear scarring. Electronically Signed: Chang Shepard MD at 12:15 EST , Assessment & Plan Assessment/Plan (1) COPD exacerbation: PLAN: Patient is a 75-year-old lady presented with shortness of breath 1. Acute on chronic combined respiratory failure ?Secondary to COPD exacerbation admitted to regular nursing floor with treatment of underlying condition 2. COPD with acute exacerbation ?Patient continues to smoke she was counseled on cessation. Presented with bronchospasm admitted to regular nursing floor managed with systemic steroid antibiotic therapy as well as supplemental oxygen. 3. Adult pulmonary Langerhans cell histiocytosis ?Patient followed by pulmonary as outpatient 4. Stage IIIb right breast cancer ?Status post neoadjuvant chemotherapy. Patient currently on tamoxifen 5. Tobacco dependence - Counseled on cessation, offered nicotine patch for tobacco cravings 6. Coronary artery disease ?With previous PCI patient is currently on dual antiplatelet therapy with aspirin and Plavix as well as statin therapy and beta-blockers 7. Hypertension - Blood pressure controlled, home medications continued with dose adjustment as needed 8. Hypothyroidism - Patient is on levothyroxine home dose continued 9. Chronic congestive heart failure ?With preserved ejection fraction, echo obtained on 11/10/2019 demonstrated EF of 58% 10. Recent admission for COVID-19 pneumonia ?Patient was discharged home on 06/14/2021 after successful treatment in the hospital 11. GERD ?Patient is on PPI 12. DVT prophylaxis ?Lovenox Advance planning; did discuss with the patient and family regarding advanced directives as well as CODE STATUS. Did explain the various scenarios involved ( FULL CODE, DNR CCA, DNR CCA with no intubation, and DNR CC and what each meant) patient elected remain full code with CPR and intubation if needed. Order was placed. Time spent on discussion 18 minutes. Charges/Coding Visit Charges OBSV E&M: 57249 Initial observation care L3 Procedures Hospitalists Procedures: [id number] Advncd Care Plan 30 Min
[2021-07-26 14:42] LABS: D-Dimer Quantitative (DVT/PE) 0.89 FEU/ug/m (0.27-0.49)
[2021-07-26] MEDS: 0.9% Saline Lock 10 ML Syringe IV ×2 (15:51→22:10)
[2021-07-26] MEDS: Azithromycin 250 MG Tablet 500 MG PO (15:52)
[2021-07-26] MEDS: Tamoxifen 10 MG Tablet 20 MG PO (22:06)
[2021-07-26] MEDS: Atorvastatin Calcium 40 MG Tablet PO (22:06)
[2021-07-26] MEDS: Carvedilol 3.125 MG TABLET PO (22:06)
[2021-07-27] VITALS (11 sets, daily range): BP systolic 103–135; BP diastolic 56–80; PULSE 73–92; RESP 16–24; TEMP 36.8–37.1; O2SAT 90–97
[2021-07-27] MEDS: Ipratropium/Albuterol Sulfate 3 ML AMPUL.NEB INHALATION ×6 (03:00→23:40)
[2021-07-27] MEDS: Levothyroxine 137 MCG Tablet PO (05:51)
[2021-07-27] MEDS: 0.9% Saline Lock 10 ML Syringe IV (05:52)
[2021-07-27 06:20] LABS: Absolute Lymphocyte Count 0.45 X10^3/uL (0.83-4.51); Absolute Neutrophil Count 13.7 X10^3/uL (2.0-7.7); Basophil# 0.01 X10^3/uL; Basophil% 0.1 % (0-1); Hematocrit 36.9 % (37-47); Hemoglobin 12.6 g/dL (12.0-15.0); Lymphocyte # 0.45 X10^3/ul (0.83-4.51); Lymphocyte % 3.1 % (19-41); Mean Corp Hgb Conc 34.1 g/dL (32-36); Mean Corpuscular Volume 93.7 fL (81-99); Mean Platelet Vol. 9.8 fl (6.2-12.0); Monocyte# 0.44 X10^3/uL; NRBC Flagged by Analyzer 0 % (0-5); Neutrophil # 13.71 X10^3/uL (2.7-7.7); POSITIVE DIFFERENTIAL YES; Platelet Count 297 K/mm3 (150-450); RBC Distribution Width CV 14.5 % (11.6-14.6); RBC Distribution Width SD 49.7 fl (35.1-43.9); Red Blood Count 3.94 M/mm3 (4.2-5.4); White Blood Count 14.7 K/mm3 (4.4-11.0)
[2021-07-27 06:30] LABS: Differential Indicated SCAN CRITERIA MET
[2021-07-27 06:43] LABS: Anion Gap 4 (5-15); BUN 13 mg/dL (7-18); BUN/Creat Ratio 20.1 RATIO (10-20); Calcium,Total 8.5 mg/dL (8.5-10.1); Chloride 99 mmol/L (98-107); Creatinine, Serum 0.65 mg/dL (0.55-1.02); EST Glomerular Filtration Rate 95 mL/min (>60); Est Glom Filt Rate - Afr Amer 115 mL/min (>60); Estimated Creatinine Clearance 43.27 ml/min; Glucose 174 mg/dL (74-106); Magnesium 2.4 mg/dL (1.6-2.6); Potassium 4.6 mmol/L (3.5-5.1); Sodium Level 134 mmol/L (136-145)
--- NOTE | 2021-07-27 07:42 | PCM.PN.HOSP ---
Objective Data Objective Data Vital Signs: Vital Signs Temp Pulse Resp BP Pulse Ox 98.3 F 85 22 H 106/66 94 07/27/21 01:53 07/27/21 07:22 07/27/21 07:22 07/27/21 01:53 07/27/21 07:22 Oxygen Flow Rate (L/min) 3 Oxygen Delivery Method Nasal Cannula Weight: 68.9 kg Body Mass Index (BMI) 25.7 Lab / Micro Data Result Diagrams: 07/27/21 06:00 07/27/21 06:00 Labs: Laboratory Results - last 24 hr 07/26/21 11:50: WBC 9.2, RBC 4.20, Hgb 13.7, Hct 40.5, MCV 96.4, MCH 32.6 H, MCHC 33.8, RDW Std Deviation 52.0 H, RDW Coeff of [place] 14.7 H, Plt Count 304, MPV 9.6, Immature Gran % (Auto) 0.500, Neut % (Auto) 79.6 H, Lymph % (Auto) 10.6 L, [place] % (Auto) 7.9, Eos % (Auto) 1.0, Baso % (Auto) 0.4, Absolute Neuts (auto) 7.3, Absolute Lymphs (auto) 0.97, Nucleated RBC % 0 07/26/21 11:50: Sodium 132 L, Potassium 4.6, Chloride 94 L, Carbon Dioxide 35.0 H, Anion Gap 3 L, BUN 15, Creatinine 0.93, Estim Creat Clear Calc 46.52, Est GFR (MDRD) Af Amer 76, Est GFR (MDRD) Non-Af 63, BUN/Creatinine Ratio 16.1, Glucose 107 H, Calcium 8.5, Troponin I High Sens 6 07/26/21 11:50: B-Natriuretic Peptide 13.6 07/26/21 14:02: D-Dimer Quant (PE/DVT) 0.89 H* 07/27/21 06:00: WBC 14.7 H, RBC 3.94 L, Hgb 12.6, Hct 36.9 L, MCV 93.7, MCH 32.0, MCHC 34.1, RDW Std Deviation 49.7 H, RDW Coeff of [place] 14.5, Plt Count 297, MPV 9.8, Immature Gran % (Auto) 0.800, Neut % (Auto) 93.0 H, Lymph % (Auto) 3.1 L, [place] % (Auto) 3.0, Eos % (Auto) 0.0, Baso % (Auto) 0.1, Absolute Neuts (auto) 13.7 H, Absolute Lymphs (auto) 0.45 L, Nucleated RBC % 0 07/27/21 06:00: Sodium 134 L, Potassium 4.6, Chloride 99, Carbon Dioxide 31.0, Anion Gap 4 L, BUN 13, Creatinine 0.65, Estim Creat Clear Calc 43.27, Est GFR (MDRD) Af Amer 115, Est GFR (MDRD) Non-Af 95, BUN/Creatinine Ratio 20.1 H, Glucose 174 H, Calcium 8.5, Magnesium 2.4 Micro: Microbiology 07/26/21 14:02 Mucosa - Nasopharyngeal - Final 07/26/21 14:02 Nasal Secretion SARS-CoV-2 Antigen (Rapid) - Final Radiography Diagnostic Testing: Radiology Impression Chest X-Ray 07/26/21 11:26 IMPRESSION: Hyperinflation. Stable mild increased markings at the left lung base suggestive of linear scarring. Electronically Signed: Chang Shepard MD at 12:15 EST , Physical Exam Narrative GENERAL: cooperative HEENT: Atraumatic; EYES; Anicteric, Normal Conjunctiva NECK; supple, normal thyroid, RESPIRATORY: Diminished to auscultation with bilateral wheezes CARDIOVASCULAR: Regular S1 S2, GI: soft, normoactive bowel sounds, : No Renal angle tenderness; EXTREMITIES: No edema, no clubbing, MUSCULOSKELETAL: no muscle wasting NEURO: Awake; no lateralizing signs. SKIN: No Rash PSYCH; Flat affect
--- NOTE | 2021-07-27 07:43 | PCM.PN.HOSP ---
Subjective Subjective Patient seen breathing more labored than before. With patient's increasing work of breathing decision was made to consult pulmonary medicine Objective Data Objective Data Vital Signs: Vital Signs Temp Pulse Resp BP Pulse Ox 98.3 F 85 22 H 106/66 94 07/27/21 01:53 07/27/21 07:22 07/27/21 07:22 07/27/21 01:53 07/27/21 07:22 Oxygen Flow Rate (L/min) 3 Oxygen Delivery Method Nasal Cannula Weight: 68.9 kg Body Mass Index (BMI) 25.7 Lab / Micro Data Result Diagrams: 07/27/21 06:00 07/27/21 06:00 Labs: Laboratory Results - last 24 hr 07/26/21 11:50: WBC 9.2, RBC 4.20, Hgb 13.7, Hct 40.5, MCV 96.4, MCH 32.6 H, MCHC 33.8, RDW Std Deviation 52.0 H, RDW Coeff of [place] 14.7 H, Plt Count 304, MPV 9.6, Immature Gran % (Auto) 0.500, Neut % (Auto) 79.6 H, Lymph % (Auto) 10.6 L, [place] % (Auto) 7.9, Eos % (Auto) 1.0, Baso % (Auto) 0.4, Absolute Neuts (auto) 7.3, Absolute Lymphs (auto) 0.97, Nucleated RBC % 0 07/26/21 11:50: Sodium 132 L, Potassium 4.6, Chloride 94 L, Carbon Dioxide 35.0 H, Anion Gap 3 L, BUN 15, Creatinine 0.93, Estim Creat Clear Calc 46.52, Est GFR (MDRD) Af Amer 76, Est GFR (MDRD) Non-Af 63, BUN/Creatinine Ratio 16.1, Glucose 107 H, Calcium 8.5, Troponin I High Sens 6 07/26/21 11:50: B-Natriuretic Peptide 13.6 07/26/21 14:02: D-Dimer Quant (PE/DVT) 0.89 H* 07/27/21 06:00: WBC 14.7 H, RBC 3.94 L, Hgb 12.6, Hct 36.9 L, MCV 93.7, MCH 32.0, MCHC 34.1, RDW Std Deviation 49.7 H, RDW Coeff of [place] 14.5, Plt Count 297, MPV 9.8, Immature Gran % (Auto) 0.800, Neut % (Auto) 93.0 H, Lymph % (Auto) 3.1 L, [place] % (Auto) 3.0, Eos % (Auto) 0.0, Baso % (Auto) 0.1, Absolute Neuts (auto) 13.7 H, Absolute Lymphs (auto) 0.45 L, Nucleated RBC % 0 07/27/21 06:00: Sodium 134 L, Potassium 4.6, Chloride 99, Carbon Dioxide 31.0, Anion Gap 4 L, BUN 13, Creatinine 0.65, Estim Creat Clear Calc 43.27, Est GFR (MDRD) Af Amer 115, Est GFR (MDRD) Non-Af 95, BUN/Creatinine Ratio 20.1 H, Glucose 174 H, Calcium 8.5, Magnesium 2.4 Micro: Microbiology 07/26/21 14:02 Mucosa - Nasopharyngeal - Final 07/26/21 14:02 Nasal Secretion SARS-CoV-2 Antigen (Rapid) - Final Radiography Diagnostic Testing: Radiology Impression Chest X-Ray 07/26/21 11:26 IMPRESSION: Hyperinflation. Stable mild increased markings at the left lung base suggestive of linear scarring. Electronically Signed: Chang Shepard MD at 12:15 EST , Assessment & Plan Assessment/Plan (1) COPD exacerbation: PLAN: Charges/Coding Visit Charges Inpatient E&M: 08671 Subs Hosp L2 Assessment & Plan Assessment & Plan (1) COPD exacerbation: Plan:
[2021-07-27] MEDS: Aspirin 81 MG TAB.CHEW PO (08:47)
[2021-07-27] MEDS: Enoxaparin 40 MG/0.4 ML Syringe SC (08:47)
[2021-07-27] MEDS: Carvedilol 3.125 MG TABLET PO ×2 (08:47→22:01)
[2021-07-27] MEDS: Azithromycin 250 MG Tablet 500 MG PO (08:48)
[2021-07-27] MEDS: Cholecalciferol (VIT D3) 25 MCG TABLET (1,000 UNITS) 125 MCG PO (08:48)
[2021-07-27] MEDS: Clopidogrel Bisulfate 75 MG Tablet PO (08:48)
[2021-07-27] MEDS: Pantoprazole Sodium 20 MG Tablet PO (08:48)
[2021-07-27] MEDS: Lisinopril 5 MG Tablet PO (08:48)
--- NOTE | 2021-07-27 10:02 | PN.HOSP_ITS ---
Subjective Subjective Patient seen breathing much more labored compared to when she was admitted Objective Data Objective Data Vital Signs: Vital Signs Temp Pulse Resp BP Pulse Ox 98.5 F 90 16 135/80 H 90 07/27/21 08:00 07/27/21 08:00 07/27/21 08:00 07/27/21 08:00 07/27/21 08:00 Oxygen Flow Rate (L/min) 3 Oxygen Delivery Method Nasal Cannula Weight: 68.9 kg Body Mass Index (BMI) 25.7 Lab / Micro Data Result Diagrams: 07/27/21 06:00 07/27/21 06:00 Labs: Laboratory Results - last 24 hr 07/26/21 11:50: WBC 9.2, RBC 4.20, Hgb 13.7, Hct 40.5, MCV 96.4, MCH 32.6 H, M CHC 33.8, RDW Std Deviation 52.0 H, RDW Coeff of [place] 14.7 H, Plt Count 304, MPV 9.6, Immature Gran % (Auto) 0.500, Neut % (Auto) 79.6 H, Lymph % (Auto) 10.6 L, [place] % (Auto) 7.9, Eos % (Auto) 1.0, Baso % (Auto) 0.4, Absolute Neuts (auto) 7.3, Absolute Lymphs (auto) 0.97, Nucleated RBC % 0 07/26/21 11:50: Sodium 132 L, Potassium 4.6, Chloride 94 L, Carbon Dioxide 35.0 H, Anion Gap 3 L, BUN 15, Creatinine 0.93, Estim Creat Clear Calc 46.52, Est GFR (MDRD) Af Amer 76, Est GFR (MDRD) Non-Af 63, BUN/Creatinine Ratio 16.1, Glucose 107 H, Calcium 8.5, Troponin I High Sens 6 07/26/21 11:50: B-Natriuretic Peptide 13.6 07/26/21 14:02: D-Dimer Quant (PE/DVT) 0.89 H* 07/27/21 06:00: WBC 14.7 H, RBC 3.94 L, Hgb 12.6, Hct 36.9 L, MCV 93.7, MCH 32.0, MCHC 34.1, RDW Std Deviation 49.7 H, RDW Coeff of [place] 14.5, Plt Count 297, MPV 9.8, Immature Gran % (Auto) 0.800, Neut % (Auto) 93.0 H, Lymph % (Auto) 3.1 L, [place] % (Auto) 3.0, Eos % (Auto) 0.0, Baso % (Auto) 0.1, Absolute Neuts (auto) 13.7 H, Absolute Lymphs (auto) 0.45 L, Nucleated RBC % 0 07/27/21 06:00: Sodium 134 L, Potassium 4.6, Chloride 99, Carbon Dioxide 31.0, Anion Gap 4 L, BUN 13, Creatinine 0.65, Estim Creat Clear Calc 43.27, Est GFR (MDRD) Af Amer 115, Est GFR (MDRD) Non-Af 95, BUN/Creatinine Ratio 20.1 H, Glucose 174 H, Calcium 8.5, Magnesium 2.4 Micro: Microbiology 07/26/21 14:02 Mucosa - Nasopharyngeal - Final 07/26/21 14:02 Nasal Secretion SARS-CoV-2 Antigen (Rapid) - Final Radiography Diagnostic Testing: Radiology Impression Chest X-Ray 07/26/21 11:26 IMPRESSION: Hyperinflation. Stable mild increased markings at the left lung base suggestive of linear scarring. Electronically Signed: Chang Shepard MD at 12:15 EST , Physical Exam Narrative GENERAL: cooperative but dyspneic at rest HEENT: Atraumatic; EYES; Anicteric, Normal Conjunctiva NECK; supple, normal thyroid, RESPIRATORY: Diminished to auscultation with bilateral wheezes CARDIOVASCULAR: Regular S1 S2, GI: soft, normoactive bowel sounds, : No Renal angle tenderness; EXTREMITIES: No edema, no clubbing, MUSCULOSKELETAL: no muscle wasting NEURO: Awake; no lateralizing signs. SKIN: No Rash PSYCH; Flat affect Assessment & Plan Assessment/Plan (1) COPD exacerbation: PLAN: Patient is a 75-year-old lady presented with shortness of breath 1. Acute on chronic combined respiratory failure ?Secondary to COPD exacerbation admitted to regular nursing floor with treatment of underlying condition -07/27/2021; Patient seen breathing more labored than before. With patient's increasing work of breathing decision was made to consult pulmonary medicine, Dr. Vyas. 2. COPD with acute exacerbation ?Patient continues to smoke she was counseled on cessation. Presented with bronchospasm admitted to regular nursing floor managed with systemic steroid antibiotic therapy as well as supplemental oxygen. 3. Adult pulmonary Langerhans cell histiocytosis ?Patient followed by pulmonary as outpatient 4. Stage IIIb right breast cancer ?Status post neoadjuvant chemotherapy. Patient currently on tamoxifen 5. Tobacco dependence - Counseled on cessation, offered nicotine patch for tobacco cravings 6. Coronary artery disease ?With previous PCI patient is currently on dual antiplatelet therapy with aspirin and Plavix as well as statin therapy and beta-blockers 7. Hypertension - Blood pressure controlled, home medications continued with dose adjustment as needed 8. Hypothyroidism - Patient is on levothyroxine home dose continued 9. Chronic congestive heart failure ?With preserved ejection fraction, echo obtained on 11/10/2019 demonstrated EF of 58% 10. Recent admission for COVID-19 pneumonia ?Patient was discharged home on 06/14/2021 after successful treatment in the hospital 11. GERD ?Patient is on PPI 12. DVT prophylaxis ?Lovenox 13. 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
--- NOTE | 2021-07-27 10:12 | EX.PCM.CONCC ---
Assessment & Plan Assessment/Plan (1) COPD exacerbation: PLAN: RECOMMENDATIONS: 1. Continue scheduled bronchodilators and IV steroids. 2. Supplemental oxygen as needed for saturations greater than 90%. 3. Start AVAPS therapy throughout the day as needed and nightly. 4. Recommend palliative care referral. 5. Encourage incentive spirometer use and mobilize patient as tolerated. IMPRESSIONS: 1. COPD exacerbation The patient has known end-stage COPD and is on maximum triple therapy inhaler regimen. She has a baseline oxygen requirement of 2 L/min along with a history of pulmonary Langerhans' cell histiocytosis. Unfortunately, she does continue to smoke cigarettes. The patient's chest imaging is grossly clear of any infiltrates or consolidation. I suspect her exacerbation is likely secondary to ongoing tobacco abuse. However, I cannot discount the possibility of a viral URI. Nevertheless, our management would not change. Recommend continuing scheduled bronchodilators, azithromycin and IV steroids as ordered. The patient has already been set up with AVAPS therapy in her home environment. This should be continued on an inpatient basis throughout the day as needed and while sleeping. I would also recommend a palliative care be invited to participate in the patient's management as well. 2. Chronic tobacco dependency/pulmonary Langerhans' cell histiocytosis/history of breast CA/ischemic cardiomyopathy/congestive heart failure Complicates care, management, recovery and prognosis. The importance of achieving and maintaining tobacco cessation was emphasized to the patient. Nicotine replacement therapy can be utilized while she is admitted to the hospital if needed. This note was generated with [employer] dictation software. It may contain incorrect words, spelling, and punctuation that were not noted in checking the note before signing. HPI Consult Data Date of Consult: 07/27/21 HPI Narrative Reason for Consultation: COPD exacerbation HPI Narrative: The patient is a 75-year-old female, with a history as outlined below, who presented to the emergency department on July 26 with worsening dyspnea. The patient is currently followed in the pulmonary medicine clinic. She has a known history of stage IIb right breast cancer along with pulmonary Langerhans' cell histiocytosis, COPD, chronic hypoxemic respiratory failure, chronic nicotine dependency, ischemic cardiomyopathy and chronic systolic heart failure. She was last admitted to the hospital in June 2021 with acute on chronic combined respiratory failure secondary to COVID-19 pneumonia. She is on a maximal triple therapy inhaler regimen at her baseline. She does continue to smoke cigarettes daily. At the time of her last office visit with me, she was set up with home AVAPS therapy but has only had the machine for approximately 3 days. On presentation to the emergency department, the patient was noted to be afebrile. Initial laboratory evaluation revealed no evidence of a leukocytosis. D-dimer was noted to be 0.89. Troponin and BNP were normal. Chest x-ray revealed chronic findings coupled with hyperinflated lung fraga. The patient was placed on azithromycin along with scheduled bronchodilators and IV steroids. She was admitted to the medical surgical floor for further management. [facility], [facility] Medical History Abnormal breast biopsy Acute hypoxemic respiratory failure (06/20/19) Antineoplastic chemotherapy induced anemia Asthma Asthma with COPD Atherosclerosis of coronary artery of [place] heart without angina pectoris Breast cancer Breast cancer, right breast Chronic systolic (congestive) heart failure COPD (chronic obstructive pulmonary disease) COVID-19 Elevated troponin (10/11/19) Encounter for insertion of venous access port Encounter for monitoring cardiotoxic drug therapy Foot swelling Fracture, skull History of alcohol abuse History of elevated glucose History of non-ST elevation myocardial infarction (NSTEMI) (10/11/19) Hypokalemia due to loss of potassium Hypothyroidism (acquired) Ileus Ischemic cardiomyopathy Large bowel obstruction Nicotine dependence On home oxygen therapy port placement 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 Home Medications albuterol sulfate 1 puff INHALATION DAILY 10/21/17 [History Last Taken 07/25/21] fluticasone furoate-vilanterol 1 puff INHALATION BID 10/21/17 [History Last Taken 1 Week Ago ~07/19/21] levothyroxine 137 mcg PO DAILY 05/12/19 [History Last Taken 07/26/21] aspirin 81 mg PO DAILY@0800 #30 tab.chew 06/28/19 [Rx Last Taken 07/26/21] clopidogrel 75 mg tablet 75 mg PO DAILY #90 tablet 11/24/20 [Rx Last Taken 07/26/21] lisinopril 5 mg tablet 5 mg PO DAILY #90 tab 01/22/21 [Rx Last Taken 07/25/21] carvedilol 3.125 mg tablet 3.125 mg PO BID #180 tab 02/14/21 [Rx Last Taken 07/26/21] cholecalciferol (vitamin D3) 125 mcg (5,000 unit) capsule 125 mcg PO DAILY 02/23/21 [History Last Taken 07/26/21] esomeprazole magnesium 20 mg capsule,delayed release 20 mg PO DAILY cap 02/23/21 [History Last Taken 07/25/21] atorvastatin 40 mg tablet 40 mg PO DAILY #90 tablet 05/28/21 [Rx Last Taken 07/25/21] tamoxifen 20 mg tablet 20 mg PO DAILY 90 Days #90 tablet 07/12/21 [Rx Last Taken 07/25/21] prednisone 20 mg PO DAILY 07/26/21 [History Last Taken 07/24/21] sulfamethoxazole-trimethoprim 1 tab PO Q12H 07/26/21 [History Last Taken 07/24/21] Allergy/AdvReac Type Severity Reaction Status Date / Time No Known Allergies Allergy Verified 07/12/21 13:34 Family History Brother Cancer Father Lung cancer Aunt Cancer Mother Asthma Thyroid disorder Heart disease Surgical History H/O toe surgery H/O ultrasound guided needle biopsy History of appendectomy History of back surgery History of coronary artery stent placement (06/25/19) History of modified radical mastectomy of right breast Social History household members: family Smoking Status: Current every day smoker tobacco type: cigarettes alcohol intake: never substance use type: does not use ROS Constitutional Constitutional: Denies chills or fever(s) Eyes Eyes: Denies blurry vision or change in vision ENT HEENT: Denies dizziness, dysphagia or epistaxis Cardiovascular Cardiovascular: Reports dyspnea Respiratory/Chest Respiratory/Chest: Reports cough, dyspnea and wheezing Gastrointestinal Gastrointestinal: Denies abdominal pain, diarrhea, nausea or vomiting Genitourinary Genitourinary: Denies difficulty urinating Musculoskeletal Musculoskeletal: Denies arthralgias, back pain or joint pain Integumentary Integumentary: Denies lesions, rash or skin ulcer Neurologic Neurologic: Denies abnormal gait Psychiatric Psychiatric: Reports anxiety; Denies depression Endocrine Endocrinology: Denies fatigue, polydipsia or polyuria Hematologic/Lymphatic Hematologic/Lymphatic: Denies easy bleeding or easy bruising Physical Exam Const alert and no apparent distress General Appearance: cooperative HEENT normocephalic, head/scalp atraumatic and moist oral mucous membranes Eyes PERRL, EOMs intact bilaterally and conjunctivae normal Neck supple General: trachea midline Chest inspection of chest normal Resp Resp Narrative: Frequent paroxysms of coughing Auscultation: wheezes and diminished lung sounds Cardio regular rate and regular rhythm GI normal to inspection, nondistended, normoactive bowel sounds Extremity no clubbing, cyanosis or edema Skin no rashes or lesions noted Neuro CN's II-XII intact bilaterally, moves all extremities and no focal motor deficits Psych cooperative and affect normal Lab / Micro Data Result Diagrams: 07/27/21 06:00 07/27/21 06:00 Labs: Laboratory Results - last 24 hr 07/26/21 11:50: WBC 9.2, RBC 4.20, Hgb 13.7, Hct 40.5, MCV 96.4, MCH 32.6 H, MCHC 33.8, RDW Std Deviation 52.0 H, RDW Coeff of Ermelinda 14.7 H, Plt Count 304, MPV 9.6, Immature Gran % (Auto) 0.500, Neut % (Auto) 79.6 H, Lymph % (Auto) 10.6 L, Kane % (Auto) 7.9, Eos % (Auto) 1.0, Baso % (Auto) 0.4, Absolute Neuts (auto) 7.3, Absolute Lymphs (auto) 0.97, Nucleated RBC % 0 07/26/21 11:50: Sodium 132 L, Potassium 4.6, Chloride 94 L, Carbon Dioxide 35.0 H, Anion Gap 3 L, BUN 15, Creatinine 0.93, Estim Creat Clear Calc 46.52, Est GFR (MDRD) Af Amer 76, Est GFR (MDRD) Non-Af 63, BUN/Creatinine Ratio 16.1, Glucose 107 H, Calcium 8.5, Troponin I High Sens 6 07/26/21 11:50: B-Natriuretic Peptide 13.6 07/26/21 14:02: D-Dimer Quant (PE/DVT) 0.89 H* 07/27/21 06:00: WBC 14.7 H, RBC 3.94 L, Hgb 12.6, Hct 36.9 L, MCV 93.7, MCH 32.0, MCHC 34.1, RDW Std Deviation 49.7 H, RDW Coeff of Ermelinda 14.5, Plt Count 297, MPV 9.8, Immature Gran % (Auto) 0.800, Neut % (Auto) 93.0 H, Lymph % (Auto) 3.1 L, Kane % (Auto) 3.0, Eos % (Auto) 0.0, Baso % (Auto) 0.1, Absolute Neuts (auto) 13.7 H, Absolute Lymphs (auto) 0.45 L, Nucleated RBC % 0 07/27/21 06:00: Sodium 134 L, Potassium 4.6, Chloride 99, Carbon Dioxide 31.0, Anion Gap 4 L, BUN 13, Creatinine 0.65, Estim Creat Clear Calc 43.27, Est GFR (MDRD) Af Amer 115, Est GFR (MDRD) Non-Af 95, BUN/Creatinine Ratio 20.1 H, Glucose 174 H, Calcium 8.5, Magnesium 2.4 Micro: Microbiology 07/26/21 14:02 Mucosa - Nasopharyngeal - Final 07/26/21 14:02 Nasal Secretion SARS-CoV-2 Antigen (Rapid) - Final Radiology Impression Chest X-Ray 07/26/21 11:26 IMPRESSION: Hyperinflation. Stable mild increased markings at the left lung base suggestive of linear scarring. Electronically Signed: Chang Shepard MD at 12:15 EST , Charges/Coding Visit Charges Inpatient E&M: 67449 Init Hosp L3
--- NOTE | 2021-07-27 11:45 | CASEMGMT ---
Addendum entered by Esther Brandon 07/27/21 15:21: Spoke with who asks for palliative to see pt. Per palliative, pt declined services upon hospital dc last admission. Pt is agreeable now. Pt screened with [facility] Palliative Care Screening Tool, referral emailed to Palliative. Plan to see pt today. Dr. Vyas updated. TC to [facility] HHC referral made to [facility]. Received tc back from [facility] who states they do not currently have MANAGER SYSTEMS, asked Shady Hartman to provide community resources and SN and POULTRY PROCESSOR ordered. They will see pt on Friday. Original Note: AIME CANTU Assessment: Face to Face with pt for initial transition planning/care coordination assessment. AIME CANTU introduced self and role at [facility], pt voices understanding and consents to assessment. Pt is A/O x4 and answers all questions appropriately at this time. Pt sitting up in bed with O2 in and is sob with conversation. Care providers, pharmacy, and demographics verified/updated. Admitting Dx: COPD exac PCP:[facility] Specialists:paulette Vyas; Brandi, cardio; nisreen Davis Preferred Pharmacy: [facility] Insurance: [employer] [facility] [employer] Prescription Benefit: yes LW/HPOA: Pt states she has a LW/DPOA and her DPOA is her Pietro Larose. She is aware this is not on file at [facility] and she may bring in to be scanned into the chart. LNOK: Pietro Larose, ; Seamus Couch, son Living Arrangements: Pt lives with in a single story house with 5 steps to enter with a rail. Pt reports she was I in ADL's although having difficulty with bathing and dressing. Pt states she has not washed her hair in some time. Transportation: Pt drives self and denies concerns with transportation but states she has not been able to lately. DME/HHC/SNF: Pt has O2 at 2L cont per her report through [employer]. She states she does have portable tanks and one can be brought in to go home on. Pt also has a walker that she has been using recently. She has a pulse ox. Pt has had HHC in the past but is unsure of the name of the company who provided it. Pt denies SNF stays. Pt states she is not sure if she has palliative care or not. Referral made at last admission. Pt states her has HHC currently. She is interested in receiving services. Pt does get MOW. Pt denied need for list of HHC agencies stating she would like the same as her . Pt states no further concerns/needs. CM to follow. Advised pt to ask CM if any further question/concerns/needs arise, voices understanding. Pt Goal: Home with HHC Plan: Home with HHC, palliative referral
[2021-07-27] MEDS: Tamoxifen 10 MG Tablet 20 MG PO (22:01)
[2021-07-27] MEDS: Atorvastatin Calcium 40 MG Tablet PO (22:02)
--- NOTE | 2021-07-27 23:41 | CPS ---
PATIENT FAMILY BROUGHT IN HOME TRILOGY UNIT. RT FILLED HUMDIFIER AND BLED 3 LPM OXYGEN INTO UNIT.
[2021-07-28] VITALS (14 sets, daily range): BP systolic 86–112; BP diastolic 46–67; PULSE 66–110; RESP 16–26; TEMP 36.6–37.7; O2SAT 91–94
[2021-07-28] MEDS: Ipratropium/Albuterol Sulfate 3 ML AMPUL.NEB INHALATION ×6 (02:40→22:54)
--- NOTE | 2021-07-28 02:42 | CPS ---
PATIENT ON HOME RESMED ASTRAL HOME VENTILATOR WITH 4 LPM BLED IN.
[2021-07-28] MEDS: 0.9% Saline Lock 10 ML Syringe IV ×2 (03:01→21:59)
[2021-07-28] MEDS: Levothyroxine 137 MCG Tablet PO (05:58)
--- NOTE | 2021-07-28 07:16 | PN.HOSP_ITS ---
Subjective Subjective Patient seen breathing more labored with audible wheezes. Objective Data Objective Data Vital Signs: Vital Signs Temp Pulse Resp BP Pulse Ox 98.5 F 72 18 110/61 92 07/28/21 03:02 07/28/21 03:02 07/28/21 03:02 07/28/21 03:02 07/28/21 03:02 Oxygen Flow Rate (L/min) 3.5 Oxygen Delivery Method Bi-pap Weight: 68.1 kg Body Mass Index (BMI) 25.7 Intake & Output: Intake and Output for Last 24 Hours 07/26/21 07/27/21 07/28/21 23:59 23:59 23:59 Intake Total 720 / 720 Balance 720 / 720 Lab / Micro Data Result Diagrams: 07/27/21 06:00 07/27/21 06:00 Micro: Microbiology 07/26/21 14:02 Mucosa - Nasopharyngeal - Final 07/26/21 14:02 Nasal Secretion SARS-CoV-2 Antigen (Rapid) - Final Physical Exam Narrative GENERAL: cooperative but dyspneic at rest HEENT: Atraumatic; EYES; Anicteric, Normal Conjunctiva NECK; supple, normal thyroid, RESPIRATORY: Diminished to auscultation with bilateral wheezes CARDIOVASCULAR: Regular S1 S2, GI: soft, normoactive bowel sounds, : No Renal angle tenderness; EXTREMITIES: No edema, no clubbing, MUSCULOSKELETAL: no muscle wasting NEURO: Awake; no lateralizing signs. SKIN: No Rash PSYCH; Flat affect Assessment & Plan Assessment/Plan (1) COPD exacerbation: PLAN: Patient is a 75-year-old lady presented with shortness of breath 1. Acute on chronic combined respiratory failure ?Secondary to COPD exacerbation admitted to regular nursing floor with treatment of underlying condition -07/27/2021; Patient seen breathing more labored than before. With patient's increasing work of breathing decision was made to consult pulmonary medicine, Dr. Vyas. ?06/27/2021; Patient seen breathing more labored with audible wheezes. Patient was seen in consultation by Dr. Vyas with pulmonary medicine his notes and recommendations reviewed 2. COPD with acute exacerbation ?Patient continues to smoke she was counseled on cessation. Presented with bronchospasm admitted to regular nursing floor managed with systemic steroid antibiotic therapy as well as supplemental oxygen. 3. Adult pulmonary Langerhans cell histiocytosis ?Patient followed by pulmonary as outpatient 4. Stage IIIb right breast cancer ?Status post neoadjuvant chemotherapy. Patient currently on tamoxifen 5. Tobacco dependence - Counseled on cessation, offered nicotine patch for tobacco cravings 6. Coronary artery disease ?With previous PCI patient is currently on dual antiplatelet therapy with aspi rin and Plavix as well as statin therapy and beta-blockers 7. Hypertension - Blood pressure controlled, home medications continued with dose adjustment as needed 8. Hypothyroidism - Patient is on levothyroxine home dose continued 9. Chronic congestive heart failure ?With preserved ejection fraction, echo obtained on 11/10/2019 demonstrated EF of 58% 10. Recent admission for COVID-19 pneumonia ?Patient was discharged home on 06/14/2021 after successful treatment in the hospital 11. GERD ?Patient is on PPI 12. DVT prophylaxis ?Lovenox 13. 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
[2021-07-28] MEDS: Aspirin 81 MG TAB.CHEW PO (07:47)
[2021-07-28] MEDS: predniSONE 20 MG Tablet 40 MG PO (07:47)
[2021-07-28] MEDS: Clopidogrel Bisulfate 75 MG Tablet PO (07:48)
[2021-07-28] MEDS: Enoxaparin 40 MG/0.4 ML Syringe SC (07:48)
[2021-07-28] MEDS: Carvedilol 3.125 MG TABLET PO (07:48)
[2021-07-28] MEDS: Cholecalciferol (VIT D3) 25 MCG TABLET (1,000 UNITS) 125 MCG PO (07:49)
[2021-07-28] MEDS: Lisinopril 5 MG Tablet PO (07:49)
[2021-07-28] MEDS: Pantoprazole Sodium 20 MG Tablet PO (07:49)
[2021-07-28] MEDS: Azithromycin 250 MG Tablet 500 MG PO (07:50)
--- NOTE | 2021-07-28 08:21 | PCM.PN.INT ---
Assessment & Plan Assessment/Plan (1) COPD exacerbation: PLAN: RECOMMENDATIONS: 1. Continue scheduled bronchodilators and IV steroids. Anticipate prolonged steroid taper at discharge. 2. Supplemental oxygen as needed for saturations greater than 90%. 3. Continue AVAPS therapy throughout the day as needed and nightly. 4. Follow-up with palliative care on outpatient basis. 5. Encourage incentive spirometer use and mobilize patient as tolerated. IMPRESSIONS: 1. COPD exacerbation The patient has known end-stage COPD and is on maximum triple therapy inhaler regimen. She has a baseline oxygen requirement of 2 L/min along with a history of pulmonary Langerhans' cell histiocytosis. Unfortunately, she does continue to smoke cigarettes. The patient's chest imaging is grossly clear of any infiltrates or consolidation. I suspect her exacerbation is likely secondary to ongoing tobacco abuse. However, I cannot discount the possibility of a viral URI. Nevertheless, our management would not change. Recommend continuing scheduled bronchodilators, azithromycin and IV steroids as ordered. Continue AVAPS throughout the day as needed and while sleeping. The patient will be scheduled to follow-up with palliative care on an outpatient basis. 2. Chronic tobacco dependency/pulmonary Langerhans' cell histiocytosis/history of breast CA/ischemic cardiomyopathy/congestive heart failure Complicates care, management, recovery and prognosis. The importance of achieving and maintaining tobacco cessation was emphasized to the patient. Nicotine replacement therapy can be utilized while she is admitted to the hospital if needed. This note was generated with [employer] dictation software. It may contain incorrect words, spelling, and punctuation that were not noted in checking the note before signing. Subjective Subjective The patient was seen and examined at the bedside this morning. Events from the last 24 hours have been reviewed. The patient is currently afebrile, hemodynamically stable and maintaining appropriate oxygen saturations on 4 L/min via nasal cannula. The patient does report ongoing shortness of breath and wheezing. The patient was placed on her home astral noninvasive ventilator overnight. The patient was evaluated by palliative care yesterday. Objective Data Objective Data The patient's most recent lab work, culture data and imaging studies have all been personally reviewed. Vital Signs: Vital Signs Temp Pulse Resp BP Pulse Ox 98.5 F 77 20 H 110/61 93 07/28/21 03:02 07/28/21 07:45 07/28/21 07:45 07/28/21 03:02 07/28/21 08:08 Oxygen Flow Rate (L/min) 4 Oxygen Delivery Method Nasal Cannula Weight: 68.1 kg Body Mass Index (BMI) 25.7 Intake & Output: Intake and Output for Last 24 Hours 07/26/21 07/27/21 07/28/21 23:59 23:59 23:59 Intake Total 720 / 720 Balance 720 / 720 Lab / Micro Data Attestation: I reviewed the patient's lab results. Result Diagrams: 07/27/21 06:00 07/27/21 06:00 Micro: Microbiology 07/26/21 14:02 Mucosa - Nasopharyngeal - Final 07/26/21 14:02 Nasal Secretion SARS-CoV-2 Antigen (Rapid) - Final Physical Exam Const alert and no apparent distress General Appearance: cooperative HEENT normocephalic, head/scalp atraumatic and moist oral mucous membranes Eyes PERRL, EOMs intact bilaterally and conjunctivae normal Neck supple General: trachea midline Chest inspection of chest normal Resp Effort and Inspection: prolonged expiratory phase Auscultation: wheezes and diminished lung sounds Cardio regular rate and regular rhythm GI normal to inspection, nondistended, normoactive bowel sounds Extremity no clubbing, cyanosis or edema Skin no rashes or lesions noted Neuro CN's II-XII intact bilaterally, moves all extremities and no focal motor deficits Psych cooperative and affect normal Charges/Coding Visit Charges Inpatient E&M: 49334 Subs Hosp L2
--- NOTE | 2021-07-28 13:37 | CASEMGMT ---
Social Work Consult: Resources Referral source: RN ALONDRA Met with patient in room. Introduced self and social services coordinator role. Patient agreeable to speak with this social services coordinator. This social services coordinator inquired about patient request for resources. Patient reports to already be connected with [employer] Whe[employer] and to received 5 hot meals a week. Patient reports that patient spouse has dementia and I take care of him. Patient reports that patient son and patient sister are currently caring for patient spouse while patient is in the hospital. Patient plans to discharge to community tomorrow. Patient reports main concern is someone to help clean and help with my . This social services coordinator exploring patient financial means. Patient is limited financially. This social services coordinator provided patient with information on [facility] [employer] [facility]. Patient reports to be aware of this resource and to have worked with [facility] for Meals on Wheels. This social services coordinator provided patient information on contacting [facility] as patient does not want this social services coordinator to make a referral I will in my own time. This social services coordinator explored if patient has a medical alert in the home, patient does not. This social services coordinator provided information on medical alert as well as ed educational aide list in the event that patient only needs a few hours here and there and can afford that. Patient reports to have son that assist with transportation in the community. Patient denies concerns on returning to home and reports positive support from patient family. Active support provided. PLAN: Discharge to community No further services indicated. Iliana HYDE, JINA
[2021-07-28] MEDS: Atorvastatin Calcium 40 MG Tablet PO (21:58)
[2021-07-28] MEDS: Tamoxifen 10 MG Tablet 20 MG PO (21:58)
[2021-07-29] VITALS (11 sets, daily range): BP systolic 100–127; BP diastolic 51–76; PULSE 62–106; RESP 12–24; TEMP 36.6–37.2; O2SAT 91–95
[2021-07-29] MEDS: Ipratropium/Albuterol Sulfate 3 ML AMPUL.NEB INHALATION ×6 (03:17→23:15)
[2021-07-29] MEDS: Levothyroxine 137 MCG Tablet PO (06:01)
--- NOTE | 2021-07-29 06:33 | PCM.PN.INT ---
Assessment & Plan Assessment/Plan (1) COPD exacerbation: PLAN: RECOMMENDATIONS: 1. Continue scheduled bronchodilators and IV steroids. Anticipate prolonged steroid taper at discharge. 2. Supplemental oxygen as needed for saturations greater than 90%. 3. Continue AVAPS therapy throughout the day as needed and nightly. 4. Follow-up with palliative care on outpatient basis. 5. Encourage incentive spirometer use and mobilize patient as tolerated. 6. Follow-up in the pulmonary medicine clinic 2 weeks post discharge. IMPRESSIONS: 1. COPD exacerbation The patient has known end-stage COPD and is on maximum triple therapy inhaler regimen. She has a baseline oxygen requirement of 2 L/min along with a history of pulmonary Langerhans' cell histiocytosis. Unfortunately, she does continue to smoke cigarettes. The patient's chest imaging is grossly clear of any infiltrates or consolidation. I suspect her exacerbation is likely secondary to ongoing tobacco abuse. However, I cannot discount the possibility of a viral URI. Nevertheless, our management would not change. Recommend continuing scheduled bronchodilators, azithromycin and IV steroids as ordered. Continue AVAPS throughout the day as needed and while sleeping. The patient will be scheduled to follow-up with palliative care on an outpatient basis. I would recommend that she be provided with a prolonged steroid taper at discharge and be instructed to follow-up in our office in 2 weeks. Given the frequency of her exacerbations, the patient may benefit from remaining on low-dose corticosteroids. 2. Chronic tobacco dependency/pulmonary Langerhans' cell histiocytosis/history of breast CA/ischemic cardiomyopathy/congestive heart failure Complicates care, management, recovery and prognosis. The importance of achieving and maintaining tobacco cessation was emphasized to the patient. Nicotine replacement therapy can be utilized while she is admitted to the hospital if needed. This note was generated with [employer] dictation software. It may contain incorrect words, spelling, and punctuation that were not noted in checking the note before signing. Subjective Subjective The patient was seen and examined at the bedside this morning. Events from the last 24 hours have been reviewed. The patient is currently afebrile, hemodynamically stable and maintaining appropriate oxygen saturations on 4 L/min via nasal cannula. The patient remains compliant with her home astral noninvasive ventilator. She does report some improvement in her breathing quality at this morning. Objective Data Objective Data The patient's most recent lab work, culture data and imaging studies have all been personally reviewed. Vital Signs: Vital Signs Temp Pulse Resp BP Pulse Ox 97.8 F 62 16 100/60 94 07/29/21 03:44 07/29/21 03:44 07/29/21 03:44 07/29/21 03:44 07/29/21 03:44 Oxygen Flow Rate (L/min) 4 Oxygen Delivery Method Nasal Cannula Weight: 68.9 kg Body Mass Index (BMI) 25.7 Intake & Output: Intake and Output for Last 24 Hours 07/27/21 07/28/21 07/29/21 23:59 23:59 23:59 Intake Total 720 / 720 850 / 850 Balance 720 / 720 850 / 850 Lab / Micro Data Attestation: I reviewed the patient's lab results. Result Diagrams: 07/27/21 06:00 07/27/21 06:00 Micro: Microbiology 07/26/21 14:02 Mucosa - Nasopharyngeal - Final 07/26/21 14:02 Nasal Secretion SARS-CoV-2 Antigen (Rapid) - Final Physical Exam Const alert and no apparent distress General Appearance: cooperative HEENT normocephalic, head/scalp atraumatic and moist oral mucous membranes Eyes PERRL, EOMs intact bilaterally and conjunctivae normal Neck supple General: trachea midline Chest inspection of chest normal Resp Resp Narrative: Although wheezes are still present bilaterally there is some improvement when compared to the last several days along with improved air movement. Effort and Inspection: prolonged expiratory phase Auscultation: diminished lung sounds Cardio regular rate and regular rhythm GI normal to inspection, nondistended, normoactive bowel sounds Extremity no clubbing, cyanosis or edema Skin no rashes or lesions noted Neuro CN's II-XII intact bilaterally, moves all extremities and no focal motor deficits Psych cooperative and affect normal Charges/Coding Visit Charges Inpatient E&M: 28084 Subs Hosp L2
--- NOTE | 2021-07-29 07:29 | PCM.PN.HOSP ---
Subjective Subjective Patient seen breathing remains labored. Objective Data Objective Data Vital Signs: Vital Signs Temp Pulse Resp BP Pulse Ox 97.8 F 62 16 100/60 94 07/29/21 03:44 07/29/21 03:44 07/29/21 03:44 07/29/21 03:44 07/29/21 03:44 Oxygen Flow Rate (L/min) 4 Oxygen Delivery Method Nasal Cannula Weight: 68.9 kg Body Mass Index (BMI) 25.7 Intake & Output: Intake and Output for Last 24 Hours 07/27/21 07/28/21 07/29/21 23:59 23:59 23:59 Intake Total 720 / 720 850 / 850 Balance 720 / 720 850 / 850 Lab / Micro Data Result Diagrams: 07/27/21 06:00 07/27/21 06:00 Micro: Microbiology 07/26/21 14:02 Mucosa - Nasopharyngeal - Final 07/26/21 14:02 Nasal Secretion SARS-CoV-2 Antigen (Rapid) - Final Physical Exam Narrative GENERAL: cooperative but dyspneic at rest HEENT: Atraumatic; EYES; Anicteric, Normal Conjunctiva NECK; supple, normal thyroid, RESPIRATORY: Diminished to auscultation with bilateral wheezes CARDIOVASCULAR: Regular S1 S2, GI: soft, normoactive bowel sounds, : No Renal angle tenderness; EXTREMITIES: No edema, no clubbing, MUSCULOSKELETAL: no muscle wasting NEURO: Awake; no lateralizing signs. SKIN: An area of induration on the anterior surface of the right tibia consistent with abscess PSYCH; Flat affect Assessment & Plan Assessment/Plan (1) COPD exacerbation: PLAN: Patient is a 75-year-old lady presented with shortness of breath 1. Acute on chronic combined respiratory failure ?Secondary to COPD exacerbation admitted to regular nursing floor with treatment of underlying condition -07/27/2021; Patient seen breathing more labored than before. With patient's increasing work of breathing decision was made to consult pulmonary medicine, Dr. Vyas. ?06/27/2021; Patient seen breathing more labored with audible wheezes. Patient was seen in consultation by Dr. Vyas with pulmonary medicine his notes and recommendations reviewed 2. COPD with acute exacerbation ?Patient continues to smoke she was counseled on cessation. Presented with bronchospasm admitted to regular nursing floor managed with systemic steroid antibiotic therapy as well as supplemental oxygen. 3. Adult pulmonary Langerhans cell histiocytosis ?Patient followed by pulmonary as outpatient 4. Stage IIIb right breast cancer ?Status post neoadjuvant chemotherapy. Patient currently on tamoxifen 5. Tobacco dependence - Counseled on cessation, offered nicotine patch for tobacco cravings 6. Coronary artery disease ?With previous PCI patient is currently on dual antiplatelet therapy with aspirin and Plavix as well as statin therapy and beta-blockers 7. Hypertension - Blood pressure controlled, home medications continued with dose adjustment as needed 8. Hypothyroidism - Patient is on levothyroxine home dose continued 9. Chronic congestive heart failure ?With preserved ejection fraction, echo obtained on 11/10/2019 demonstrated EF of 58% 10. Recent admission for COVID-19 pneumonia ?Patient was discharged home on 06/14/2021 after successful treatment in the hospital 11. GERD ?Patient is on PPI 12. DVT prophylaxis ?Lovenox 13. 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 Recent right lower extremity cellulitis ?With resultant abscess. Patient was on Bactrim start on admission started on doxycycline which should help treat both the cellulitis with abscess as well as patient COPD with acute exacerbation Charges/Coding Visit Charges Inpatient E&M: 01227 Subs Hosp L2
[2021-07-29] MEDS: predniSONE 20 MG Tablet 40 MG PO (08:12)
[2021-07-29] MEDS: Pantoprazole Sodium 20 MG Tablet PO (08:12)
[2021-07-29] MEDS: Cholecalciferol (VIT D3) 25 MCG TABLET (1,000 UNITS) 125 MCG PO (08:12)
[2021-07-29] MEDS: Aspirin 81 MG TAB.CHEW PO (08:13)
[2021-07-29] MEDS: Enoxaparin 40 MG/0.4 ML Syringe SC (08:13)
[2021-07-29] MEDS: Clopidogrel Bisulfate 75 MG Tablet PO (08:14)
[2021-07-29] MEDS: Azithromycin 250 MG Tablet 500 MG PO (08:14)
[2021-07-29] MEDS: Doxycycline 100 MG CAPSULE PO ×2 (10:22→22:07)
[2021-07-29] MEDS: Atorvastatin Calcium 40 MG Tablet PO (22:07)
[2021-07-29] MEDS: Tamoxifen 10 MG Tablet 20 MG PO (22:07)
[2021-07-30] VITALS (13 sets, daily range): BP systolic 89–119; BP diastolic 52–65; PULSE 67–101; RESP 18–24; TEMP 36.7–37.2; O2SAT 86–96
[2021-07-30] MEDS: Ipratropium/Albuterol Sulfate 3 ML AMPUL.NEB INHALATION ×6 (03:18→22:33)
[2021-07-30] MEDS: Levothyroxine 137 MCG Tablet PO (06:06)
[2021-07-30 06:51] LABS: Absolute Lymphocyte Count 1.93 X10^3/uL (0.83-4.51); Absolute Neutrophil Count 8.7 X10^3/uL (2.0-7.7); Basophil# 0.01 X10^3/uL; Basophil% 0.1 % (0-1); Eosinophil# 0.04 X10^3/uL; Eosinophils% 0.3 % (0-5); Hematocrit 34.7 % (37-47); Hemoglobin 11.8 g/dL (12.0-15.0); Lymphocyte # 1.93 X10^3/ul (0.83-4.51); Mean Corpuscular Hgb 31.7 pg (27.0-32.0); Mean Corpuscular Volume 93.3 fL (81-99); Mean Platelet Vol. 9.7 fl (6.2-12.0); Monocyte# 1.25 X10^3/uL; Monocyte% 10.4 % (0-10); NRBC Flagged by Analyzer 0 % (0-5); Neutrophil % 72.1 % (47-70); Platelet Count 247 K/mm3 (150-450); RBC Distribution Width CV 14.7 % (11.6-14.6); Red Blood Count 3.72 M/mm3 (4.2-5.4); White Blood Count 12.1 K/mm3 (4.4-11.0)
[2021-07-30 07:12] LABS: Anion Gap 2 (5-15); BUN 17 mg/dL (7-18); BUN/Creat Ratio 28.8 RATIO (10-20); Calcium,Total 8.1 mg/dL (8.5-10.1); Chloride 98 mmol/L (98-107); Creatinine, Serum 0.59 mg/dL (0.55-1.02); EST Glomerular Filtration Rate 106 mL/min (>60); Est Glom Filt Rate - Afr Amer 128 mL/min (>60); Estimated Creatinine Clearance 43.27 ml/min; Glucose 83 mg/dL (74-106); Potassium 4.1 mmol/L (3.5-5.1); Sodium Level 134 mmol/L (136-145)
--- NOTE | 2021-07-30 08:06 | PN.CC_ITS ---
Assessment & Plan Assessment/Plan (1) COPD exacerbation: PLAN: RECOMMENDATIONS: 1. Continue scheduled bronchodilators and IV steroids. Anticipate prolonged steroid taper at discharge. 2. Supplemental oxygen as needed for saturations greater than 90%. 3. Continue AVAPS therapy throughout the day as needed and nightly. 4. Follow-up with palliative care on outpatient basis. 5. Obtain PA lateral chest x-ray 6. Follow-up in the pulmonary medicine clinic 2 weeks post discharge. IMPRESSIONS: 1. COPD exacerbation The patient has known end-stage COPD and is on maximum triple therapy inhaler regimen. She has a baseline oxygen requirement of 2 L/min along with a history of pulmonary Langerhans' cell histiocytosis. Unfortunately, she does continue to smoke cigarettes. The patient's chest imaging is grossly clear of any infiltrates or consolidation. I suspect her exacerbation is likely secondary to ongoing tobacco abuse. However, I cannot discount the possibility of a viral URI. Nevertheless, our management would not change. Recommend continuing scheduled bronchodilators, azithromycin and IV steroids as ordered. Continue AVAPS throughout the day as needed and while sleeping. The patient will be scheduled to follow-up with palliative care on an outpatient basis. I would recommend that she be provided with a prolonged steroid taper at discharge and be instructed to follow-up in our office in 2 weeks. Some concern with paroxysmal coughing overnight for possible pneumothorax. Patient would be at high risk for this given her pulmonary Langerhan's histiocytosis. We will check a chest x-ray to evaluate 2. Chronic tobacco dependency/pulmonary Langerhans' cell histiocytosis/history of breast CA/ischemic cardiomyopathy/congestive heart failure Complicates care, management, recovery and prognosis. The importance of achieving and maintaining tobacco cessation was emphasized to the patient. Nicotine replacement therapy can be utilized while she is admitted to the [facility] if needed. This note was generated with [employer] dictation software. It may contain incorrect words, spelling, and punctuation that were not noted in checking the note before signing. Subjective Subjective Patient did okay yesterday evening. However, patient woke up overnight while on CPAP and had a paroxysmal type coughing event. Patient states this took it out of me. Patient states this was nonproductive and related to a tickle in the throat. Patient denies any current chest pain, abdominal pain, nausea or vomiting. No aspiration event was reported. Objective Data Objective Data Vital Signs: Vital Signs Temp Pulse Resp BP Pulse Ox 37.2 C 67 20 H 115/65 93 07/30/21 03:33 07/30/21 03:33 07/30/21 03:33 07/30/21 03:33 07/30/21 03:33 Oxygen Flow Rate (L/min) 4 Oxygen Delivery Method Nasal Cannula Weight: 68.9 kg Body Mass Index (BMI) 25.7 Intake & Output: Intake and Output for Last 24 Hours 07/28/21 07/29/21 07/30/21 23:59 23:59 23:59 Intake Total 850 / 850 850 / 850 750 / 750 Balance 850 / 850 850 / 850 750 / 750 Lab / Micro Data Result Diagrams: 07/30/21 06:33 07/30/21 06:33 Labs: Laboratory Results - last 24 hr 07/30/21 06:33: WBC 12.1 H, RBC 3.72 L, Hgb 11.8 L, Hct 34.7 L, MCV 93.3, MCH 31.7, MCHC 34.0, RDW Std Deviation 51.0 H, RDW Coeff of [place] 14.7 H, Plt Count 247, MPV 9.7, Immature Gran % (Auto) 1.100 H, Neut % (Auto) 72.1 H, Lymph % (Auto) 16.0 L, [place] % (Auto) 10.4 H, Eos % (Auto) 0.3, Baso % (Auto) 0.1, Absolute Neuts (auto) 8.7 H, Absolute Lymphs (auto) 1.93, Nucleated RBC % 0 07/30/21 06:33: Sodium 134 L, Potassium 4.1, Chloride 98, Carbon Dioxide 34.0 H, Anion Gap 2 L, BUN 17, Creatinine 0.59, Estim Creat Clear Calc 43.27, Est GFR (MDRD) Af Amer 128, Est GFR (MDRD) Non-Af 106, BUN/Creatinine Ratio 28.8 H, Glucose 83, Calcium 8.1 L Micro: Microbiology 07/26/21 14:02 Mucosa - Nasopharyngeal - Final 07/26/21 14:02 Nasal Secretion SARS-CoV-2 Antigen (Rapid) - Final Physical Exam Const alert and no apparent distress Constitutional Narrative: No conversational dyspnea noted. General Appearance: cooperative HEENT normocephalic, head/scalp atraumatic and moist oral mucous membranes Eyes PERRL, EOMs intact bilaterally and conjunctivae normal Neck supple General: trachea midline Chest inspection of chest normal Resp Resp Narrative: Diminished breath sounds with apical wheezing noted. Effort and Inspection: prolonged expiratory phase Auscultation: diminished lung sounds Cardio regular rate and regular rhythm GI normal to inspection, nondistended, normoactive bowel sounds Extremity no clubbing, cyanosis or edema Skin no rashes or lesions noted Neuro CN's II-XII intact bilaterally, moves all extremities and no focal motor deficits Psych cooperative and affect normal Charges/Coding Visit Charges Inpatient E&M: 20629 Subs Hosp L2
--- NOTE | 2021-07-30 08:20 | RAD_ITS ---
STUDY: X-RAY CHEST REASON FOR EXAM: Female, 75 years old. Shortness of breath. Concern for pneumothorax TECHNIQUE: PA and lateral views of the chest. COMPARISON: Comparison is made with prior study dated 07/26/2021. FINDINGS: There is hyperinflation of the lungs consistent with chronic obstructive lung disease (COPD). Stable increased markings at the lung bases suggestive of scarring. Residual blunting of the left costal phrenic angle. Normal size heart. Normal mediastinum and rah. Normal visualized pulmonary arteries. There is atherosclerotic calcification of the aortic arch with tortuosity. There is demineralization of the osseous structures. Normal visualized ribs, clavicles, and shoulders. There is no demonstrated abnormality of the visualized soft tissue structures of the upper abdomen. RAD/Chest PA and Lateral IMPRESSION: Stable examination. No acute amount is seen. Electronically Signed: Chang Shepard MD at 13:15 EST ,
[2021-07-30] MEDS: Enoxaparin 40 MG/0.4 ML Syringe SC (08:37)
[2021-07-30] MEDS: Clopidogrel Bisulfate 75 MG Tablet PO (08:37)
[2021-07-30] MEDS: Carvedilol 3.125 MG TABLET PO (08:38)
[2021-07-30] MEDS: Doxycycline 100 MG CAPSULE PO ×2 (08:38→21:25)
[2021-07-30] MEDS: Cholecalciferol (VIT D3) 25 MCG TABLET (1,000 UNITS) 125 MCG PO (08:38)
[2021-07-30] MEDS: Aspirin 81 MG TAB.CHEW PO (08:38)
[2021-07-30] MEDS: Pantoprazole Sodium 20 MG Tablet PO (08:39)
[2021-07-30] MEDS: Lisinopril 5 MG Tablet PO (08:39)
[2021-07-30] MEDS: predniSONE 20 MG Tablet 40 MG PO (08:39)
[2021-07-30] MEDS: guaiFENesin 10 ML UDC (200MG/10ML) 20 ML PO ×2 (12:42→21:25)
--- NOTE | 2021-07-30 14:41 | PCM.PN.HOSP ---
Subjective Subjective Patient states she feels about the same. She indicates she had a severe coughing episode last night. A chest x-ray was done this morning to rule out spontaneous pneumothorax related to coughing and it was negative. Patient remains on 4 L nasal cannula and required 6 L nasal cannula to keep sats greater than 90%. She is anxious to go home however she is only on 2 L at baseline and as noted above is currently on 4 L and 6 with exertion. Objective Data Objective Data Vital Signs: Vital Signs Temp Pulse Resp BP Pulse Ox 98.4 F 73 18 119/63 90 07/30/21 08:11 07/30/21 11:16 07/30/21 11:16 07/30/21 08:11 07/30/21 12:28 Oxygen Flow Rate (L/min) [ 6 AMBULATING with Oxygen #3] Oxygen Flow Rate (L/min) [ 4 AMBULATING with Oxygen #1] Oxygen Flow Rate (L/min) [At 4 REST with Oxygen] Oxygen Flow Rate (L/min) 4 Oxygen Delivery Method Nasal Cannula Weight: 68.9 kg Body Mass Index (BMI) 25.7 Intake & Output: Intake and Output for Last 24 Hours 07/28/21 07/29/21 07/30/21 23:59 23:59 23:59 Intake Total 850 / 850 850 / 850 750 / 750 Balance 850 / 850 850 / 850 750 / 750 Lab / Micro Data Result Diagrams: 07/30/21 06:33 07/30/21 06:33 Labs: Laboratory Results - last 24 hr 07/30/21 06:33: WBC 12.1 H, RBC 3.72 L, Hgb 11.8 L, Hct 34.7 L, MCV 93.3, MCH 31.7, MCHC 34.0, RDW Std Deviation 51.0 H, RDW Coeff of [place] 14.7 H, Plt Count 247, MPV 9.7, Immature Gran % (Auto) 1.100 H, Neut % (Auto) 72.1 H, Lymph % (Auto) 16.0 L, [place] % (Auto) 10.4 H, Eos % (Auto) 0.3, Baso % (Auto) 0.1, Absolute Neuts (auto) 8.7 H, Absolute Lymphs (auto) 1.93, Nucleated RBC % 0 07/30/21 06:33: Sodium 134 L, Potassium 4.1, Chloride 98, Carbon Dioxide 34.0 H, Anion Gap 2 L, BUN 17, Creatinine 0.59, Estim Creat Clear Calc 43.27, Est GFR (MDRD) Af Amer 128, Est GFR (MDRD) Non-Af 106, BUN/Creatinine Ratio 28.8 H, Glucose 83, Calcium 8.1 L Micro: Microbiology 07/26/21 14:02 Mucosa - Nasopharyngeal - Final 07/26/21 14:02 Nasal Secretion SARS-CoV-2 Antigen (Rapid) - Final Radiography Diagnostic Testing: Radiology Impression Chest X-Ray 07/30/21 08:20 IMPRESSION: Stable examination. No acute amount is seen. Electronically Signed: Chang Shepard MD at 13:15 EST , Physical Exam Const alert, oriented x3 and average body habitus Constitutional Narrative: White female who appears older than stated age, sitting up in bed, some conversational dyspnea with increased work of breathing, nontoxic appearing however Exam Limitations: no limitations Nutritional Appearance: overweight HEENT head/scalp atraumatic, moist oral mucous membranes and oropharynx normal HEENT Narrative: Dentition is poor, Mallampati is 2, no thrush is present Head and Scalp: normocephalic Resp no retractions and no use of accessory muscles Resp Narrative: Markedly diminished with scattered end expiratory wheeze, increased work of breathing especially noted with conversation and markedly so with exertion Auscultation: wheezes; Negative for crackles, rales or rhonchi Cardio regular rate, regular rhythm, S1 normal heart sound, S2 normal heart sound, no murmurs, no rub, no gallops, no clicks and no JVD GI normal to inspection, nondistended, normoactive bowel sounds, soft to palpation, non-tender and non-distended Extremity no clubbing, cyanosis or edema Peripheral Pulses: Yes pulses 2+ throughout Neuro oriented x3, CN's II-XII intact bilaterally, moves all extremities and no focal motor deficits Sensorium / Orientation: awake and alert Speech: speech normal Psych affect normal Assessment & Plan Assessment/Plan (1) Acute and chronic respiratory failure with hypoxia: (2) Leukocytosis: (3) Hyponatremia: PLAN: Acute hypoxic respiratory failure secondary to acute exacerbation of COPD -Chest x-ray stable with hyperinflation but no signs of infiltrate -RSV is negative -Influenza is negative -Covid is negative -Continue pulmonary toilet -Continue steroids -We will utilize slow outpatient taper at discharge -Patient remains on 4 L nasal cannula and required 6 L with exertion to maintain sats greater than or equal to 88% -Baseline oxygen requirement is 2 L -Patient recently had Covid in June 2021 -We will dose Lasix 40 mg IV push x1 -Continue I-S and Acapella added -Continue AVAPS as needed -Continue atypical coverage with azithromycin -Pulmonary following-appreciate input Leukocytosis -Trending down -Suspect related to steroids -Continue to monitor Hyponatremia -Relatively stable -It does not appear she is on any medications at baseline that would exacerbate this -Repeat BMP in a.m. Hypothyroidism -Continue levothyroxine GERD -Continue PPI COPD/Langerhans histiocytosis -2 L dependent at baseline -Recommend smoking cessation -Hold home inhalers -Treatment as above -Patient is on 20 mg of prednisone at baseline CAD/HTN/HPL -Continue aspirin -Continue atorvastatin -Continue carvedilol neck-plan -Continue lisinopril History of breast cancer -Continue tamoxifen DVT prophylaxis -Continue Lovenox CODE STATUS -Full code Charges/Coding Visit Charges Inpatient E&M: 18226 Subs Hosp L2
[2021-07-30] MEDS: Furosemide 40 MG/4 ML Vial IV (15:07)
[2021-07-30] MEDS: 0.9% Saline Lock 10 ML Syringe IV (15:07)
--- NOTE | 2021-07-30 15:48 | CON.PCM.PA_ITS ---
Assessment & Plan Assessment/Plan (1) MODI (dyspnea on exertion): (2) Cough: (3) Acute and chronic respiratory failure with hypoxia: (4) History of right breast cancer: (5) COPD exacerbation: (6) Chronic systolic (congestive) heart failure: (7) Nicotine dependence: QUALIFIERS: Nicotine product type: cigarettes Substance use status: uncomplicated Qualified Code(s): F17.210 - Nicotine dependence, cigarettes, uncomplicated (8) Adult pulmonary Langerhans cell histiocytosis: PLAN: 75-year-old female with end-stage respiratory failure, COPD exacerbation, and persistent paroxysmal cough, seen today for palliative care consultation for symptom management of dyspnea and for supportive care as an outpatient. 1. Dyspnea: With minimal exertion, requiring 6 L with activity and 4 L at rest. As stated in HPI, patient would benefit from small dose of Roxanol 2.5 mg p.o./SL q4h PRN to treat her dyspnea and cough. I feel this would improve her quality of life and allow her to increase her activity tolerance with titration of the medication. However, we are currently unable to prescribe this medication to the patient as an outpatient until she has a physician visit, which could be completed at her initial [employer] home visit in a couple of weeks. I would recommend close follow-up with pulmonary and use of AVAPS at home. She will be sent home on a prolonged steroid taper. She did meet with a liaison over the weekend and has not signed any palliative consents thus far. She does want her son to meet with a liaison as an outpatient and review information. 2. Cough: Chest x-ray today was negative for spontaneous pneumothorax. Managed by pulmonary. See above 3. Acute on chronic hypoxemic and hypercapnic respiratory failure: She is on higher than normal O2 requirements, typically 2 L per nasal cannula at home. Currently on 4 L at rest and 6 L with exertion. She is wanting to go home, even on the increased oxygen requirements. She states she would like to leave tomorrow morning regardless. Continue close follow-up with pulmonary 4. History of right breast cancer/COPD/nicotine dependence/adult pulmonary Langerhans' cell histiocytosis/systolic CHF/anemia/CAD status post stent: Complicates overall care, management, recovery, and prognosis. She will continue to follow with oncology and pulmonary as stated above. She also follows with Dr. Paz for cardiology. Patient is an excellent candidate for palliative care. She is wanting symptom relief of her chronic severe dyspnea and coughing and would like to perform more activities without becoming so dyspneic. We will give her a call as an outpatient and set up another liaison visit, hopefully we can get an [employer] visit in the next couple of weeks to avoid rehospitalization. She does not want to sign consents today without her son present. She is at high risk. Thank you for the opportunity to participate in this patient's care, please do not hesitate to contact [facility] with any further questions or concerns. Palliative direct line is [phone]. We will follow up after discharge and will discuss palliative services further at that time. Greater than 50% of F2F visit dedicated to education and counseling of palliative care services, medications, comorbid conditions and potential assistance with management, and plan of care moving forward. Start time: 153 End time: 1640 HPI Consult Data Date of Consult: 07/30/21 HPI Narrative HPI Narrative: NURYS DIAZ, is a 75 F who presented to [facility] 07/26/2021 with increased shortness of breath over about a week. Recently treated for cellulitis and saw PCP about a week ago. She was placed on antibiotics for the cellulitis. She has also had recent COVID-19 and RSV. Work-up in the ED included a chest x-ray that showed hyperinflation and stable mild increased markings left lung base suggestive of linear scarring. Lab work was relatively unremarkable. Bicarb is elevated at 35. She was given aerosols, IV prednisone and oxygen. Patient is on a baseline 2 L per nasal cannula. They ambulated her in the ED and she desaturated into the low 80s. Patient was admitted for COPD exacerbation. She is a patient of Dr. Vyas, pulmonology for her advanced lung disease and Langerhans' cell histiocytosis. Pulmonary consulted during this hospital stay and recommended AVAPS throughout the day as needed and nightly, supplemental oxygen to keep saturations greater than 90%, continuing bronchodilators and IV steroids, antibiotics, mobilize, and also recommended a palliative care referral. Patient has known end-stage COPD and is on maximum triple therapy inhaler regimen. Despite having significant ongoing symptoms of dyspnea with minimal exertion and poor activity tolerance, she continues to smoke. Patient will require prolonged steroid taper at discharge and close follow-up with pulmonary. There is some concern with paroxysmal coughing overnight for possible pneumothorax per pulmonary reports. Chest x-carrie was obtained and showed a stable examination, no evidence of pneumothorax. Patient remains on 4 L of supplemental oxygen and is maintaining saturations in the 90s. She does require 6 L with exertion. Patient is anxious to be discharged home. She is afebrile. Patient has elevated white count but is likely related to her steroids. Patient reports she is having ongoing coughing fits. She feels short of breath with minimal activity. There is very little audible air movement. She is wanting to know if there is anything we can do to help her coughing and dyspnea. We did discuss use of Roxanol as I think she would benefit significantly from this. Patient does not have any allergies and has a low ORT score. She does not have Pap machine at home, however would want her to obtain one if possible prior to initiation of opioids for control of her dyspnea. She will also require an MD visit prior to initiation of opioids on an outpatient basis. Denies any nausea or vomiting. Some constipation but had a large bowel movement yesterday. Discussed use of stool softeners to avoid constipation due to making that harder to breathe. Denies any dizziness or syncope. Denies any lower extremity edema. There is a knot on her right ruiz from recent cellulitis, mildly red. No increased warmth. She has been taking antibiotics. No urinary complaints other than frequency with the Lasix. No numbness or tingling. Patient states she was given a dose of Lasix this morning to see if that would help her oxygenation. She does also have a history of breast cancer status post modified radical mastectomy right breast with axillary dissection and chemoradiation. She is on adjuvant tamoxifen and last CT the chest December 2020 showed stable right lung nodules. Patient is interested in palliative care and wants her son to meet with a liaison to get more information on an outpatient basis. Liaison came to the hospital yesterday to discuss hospice and palliative care and she was open to further discussions. 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 I also discussed smoking cessation and the severity of her illness. [facility] Medical History Abnormal breast biopsy Acute hypoxemic respiratory failure (06/20/19) Antineoplastic chemotherapy induced anemia Asthma Asthma with COPD Atherosclerosis of coronary artery of [place] heart without angina pectoris Breast cancer Breast cancer, right breast Chronic systolic (congestive) heart failure COPD (chronic obstructive pulmonary disease) COVID-19 Elevated troponin (10/11/19) Encounter for insertion of venous access port Encounter for monitoring cardiotoxic drug therapy Foot swelling Fracture, skull History of alcohol abuse History of elevated glucose History of non-ST elevation myocardial infarction (NSTEMI) (10/11/19) Hypokalemia due to loss of potassium Hypothyroidism (acquired) Ileus Ischemic cardiomyopathy Large bowel obstruction Nicotine dependence On home oxygen therapy port placement 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 Home Medications albuterol sulfate 1 puff INHALATION DAILY 10/21/17 [History Last Taken 07/25/21] fluticasone furoate-vilanterol 1 puff INHALATION BID 10/21/17 [History Last Taken 1 Week Ago ~07/19/21] levothyroxine 137 mcg PO DAILY 05/12/19 [History Last Taken 07/26/21] aspirin 81 mg PO DAILY@0800 #30 tab.chew 06/28/19 [Rx Last Taken 07/26/21] clopidogrel 75 mg tablet 75 mg PO DAILY #90 tablet 11/24/20 [Rx Last Taken 07/26/21] lisinopril 5 mg tablet 5 mg PO DAILY #90 tab 01/22/21 [Rx Last Taken 07/25/21] carvedilol 3.125 mg tablet 3.125 mg PO BID #180 tab 02/14/21 [Rx Last Taken 07/26/21] cholecalciferol (vitamin D3) 125 mcg (5,000 unit) capsule 125 mcg PO DAILY 02/23/21 [History Last Taken 07/26/21] esomeprazole magnesium 20 mg capsule,delayed release 20 mg PO DAILY cap 02/23/21 [History Last Taken 07/25/21] atorvastatin 40 mg tablet 40 mg PO DAILY #90 tablet 05/28/21 [Rx Last Taken 07/25/21] tamoxifen 20 mg tablet 20 mg PO DAILY 90 Days #90 tablet 07/12/21 [Rx Last Taken 07/25/21] prednisone 20 mg PO DAILY 07/26/21 [History Last Taken 07/24/21] sulfamethoxazole-trimethoprim 1 tab PO Q12H 07/26/21 [History Last Taken 07/24/21] Allergy/AdvReac Type Severity Reaction Status Date / Time No Known Allergies Allergy Verified 07/12/21 13:34 Family History Brother Cancer Father Lung cancer Aunt Cancer Mother Asthma Thyroid disorder Heart disease Surgical History H/O toe surgery H/O ultrasound guided needle biopsy History of appendectomy History of back surgery History of coronary artery stent placement (06/25/19) History of modified radical mastectomy of right breast Social History household members: family Smoking Status: Current every day smoker tobacco type: cigarettes alcohol intake: never substance use type: does not use ROS ROS Narrative Review of systems otherwise negative from a constitutional, HEENT, respiratory, cardiovascular, GI, genitourinary, musculoskeletal, skin, neurologic, psychiatric and hematologic system unless stated above. Physical Exam Const alert and oriented x3 Constitutional Narrative: Coughing with minimal conversation, sounds coarse/tight General Appearance: ill appearing HEENT normocephalic and head/scalp atraumatic Neck supple General: trachea midline Resp Effort and Inspection: actively coughing non-productive, bronchospastic and wheezy Auscultation: wheezes throughout and diminished lung sounds Cardio regular rate, regular rhythm, S1 normal heart sound and S2 normal heart sound GI normal to inspection, nondistended, normoactive bowel sounds Extremity General Extremity: Negative for cyanosis or edema Skin no rashes or lesions noted Neuro CN's II-XII intact bilaterally and moves all extremities Psych mental status grossly normal Activity / Motor Behavior: restless Mood & Affect: anxious Memory / Cognition: memory grossly intact
[2021-07-30] MEDS: MELATONIN 3 MG TABLET PO (21:25)
[2021-07-30] MEDS: Tamoxifen 10 MG Tablet 20 MG PO (21:25)
[2021-07-30] MEDS: Atorvastatin Calcium 40 MG Tablet PO (21:25)
[2021-07-31] VITALS (10 sets, daily range): BP systolic 92–124; BP diastolic 52–61; PULSE 67–82; RESP 18–22; TEMP 36.7–36.8; O2SAT 87–94
[2021-07-31] MEDS: Ipratropium/Albuterol Sulfate 3 ML AMPUL.NEB INHALATION ×4 (03:00→15:09)
[2021-07-31] MEDS: Levothyroxine 137 MCG Tablet PO (05:29)
[2021-07-31 05:59] LABS: Absolute Lymphocyte Count 2.31 X10^3/uL (0.83-4.51); Absolute Neutrophil Count 9.8 X10^3/uL (2.0-7.7); Basophil# 0.02 X10^3/uL; Basophil% 0.1 % (0-1); Eosinophil# 0.09 X10^3/uL; Eosinophils% 0.7 % (0-5); Hematocrit 34.7 % (37-47); Lymphocyte # 2.31 X10^3/ul (0.83-4.51); Lymphocyte % 17.1 % (19-41); Mean Corp Hgb Conc 34.6 g/dL (32-36); Mean Corpuscular Hgb 31.8 pg (27.0-32.0); Mean Platelet Vol. 9.7 fl (6.2-12.0); Monocyte# 1.17 X10^3/uL; Monocyte% 8.7 % (0-10); NRBC Flagged by Analyzer 0 % (0-5); Neutrophil # 9.78 X10^3/uL (2.7-7.7); Neutrophil % 72.6 % (47-70); Platelet Count 241 K/mm3 (150-450); RBC Distribution Width CV 14.8 % (11.6-14.6); RBC Distribution Width SD 50.3 fl (35.1-43.9); Red Blood Count 3.77 M/mm3 (4.2-5.4); White Blood Count 13.5 K/mm3 (4.4-11.0)
[2021-07-31 06:36] LABS: Anion Gap 4 (5-15); BUN 27 mg/dL (7-18); BUN/Creat Ratio 37.4 RATIO (10-20); Calcium,Total 8.7 mg/dL (8.5-10.1); Chloride 98 mmol/L (98-107); Creatinine, Serum 0.72 mg/dL (0.55-1.02); EST Glomerular Filtration Rate 84 mL/min (>60); Est Glom Filt Rate - Afr Amer 102 mL/min (>60); Estimated Creatinine Clearance 43.27 ml/min; Glucose 97 mg/dL (74-106); Potassium 3.8 mmol/L (3.5-5.1); Sodium Level 134 mmol/L (136-145)
--- NOTE | 2021-07-31 07:03 | PCM.PN.INT ---
Assessment & Plan Assessment/Plan (1) COPD exacerbation: PLAN: RECOMMENDATIONS: 1. Continue scheduled bronchodilators and p.o. steroids. Anticipate prolonged steroid taper at discharge. 2. Supplemental oxygen as needed for saturations greater than 90%. 3. Continue AVAPS therapy throughout the day as needed and nightly. 4. Follow-up with palliative care on outpatient basis. 5. Increase activity as tolerated 6. Follow-up in the pulmonary medicine clinic 2 weeks post discharge. IMPRESSIONS: 1. COPD exacerbation The patient has known end-stage COPD and is on maximum triple therapy inhaler regimen. She has a baseline oxygen requirement of 2 L/min along with a history of pulmonary Langerhans' cell histiocytosis. Unfortunately, she does continue to smoke cigarettes. The patient's chest imaging is grossly clear of any infiltrates or consolidation. I suspect her exacerbation is likely secondary to ongoing tobacco abuse. However, I cannot discount the possibility of a viral URI. Nevertheless, our management would not change. Recommend continuing scheduled bronchodilators, azithromycin and IV steroids as ordered. Continue AVAPS throughout the day as needed and while sleeping. The patient will be scheduled to follow-up with palliative care on an outpatient basis. I would recommend that she be provided with a prolonged steroid taper at discharge and be instructed to follow-up in our office in 2 weeks. Chest x-ray yesterday did not show any pneumothorax. Anticipate protracted recovery given continued smoking and severe emphysematous changes. We will hold on walking oximetry as patient requires 6 L at rest at this time. 2. Chronic tobacco dependency/pulmonary Langerhans' cell histiocytosis/history of breast CA/ischemic cardiomyopathy/congestive heart failure Complicates care, management, recovery and prognosis. The importance of achieving and maintaining tobacco cessation was emphasized to the patient. Nicotine replacement therapy can be utilized while she is admitted to the hospital if needed. This note was generated with [employer] dictation software. It may contain incorrect words, spelling, and punctuation that were not noted in checking the note before signing. Subjective Subjective Patient did okay overnight. Patient states that she did have another paroxysmal coughing event, but was able to subside it much more easily than yesterday. Patient is not reporting any chest pain. Patient does have significant shortness of breath with exertion. Objective Data Objective Data Vital Signs: Vital Signs Temp Pulse Resp BP Pulse Ox 36.7 C 72 18 124/61 H 92 07/31/21 05:35 07/31/21 05:35 07/31/21 05:35 07/31/21 05:35 07/31/21 05:35 Oxygen Flow Rate (L/min) [ 6 AMBULATING with Oxygen #3] Oxygen Flow Rate (L/min) [ 4 AMBULATING with Oxygen #1] Oxygen Flow Rate (L/min) [At 4 REST with Oxygen] Oxygen Flow Rate (L/min) 4 Oxygen Delivery Method Nasal Cannula Weight: 68.7 kg Body Mass Index (BMI) 25.7 Intake & Output: Intake and Output for Last 24 Hours 07/29/21 07/30/21 07/31/21 23:59 23:59 23:59 Intake Total 850 / 850 1000 / 1000 60 / 60 Balance 850 / 850 1000 / 1000 60 / 60 Lab / Micro Data Result Diagrams: 07/31/21 05:32 07/31/21 05:32 Labs: Laboratory Results - last 24 hr 07/30/21 06:33: Sodium 134 L, Potassium 4.1, Chloride 98, Carbon Dioxide 34.0 H, Anion Gap 2 L, BUN 17, Creatinine 0.59, Estim Creat Clear Calc 43.27, Est GFR (MDRD) Af Amer 128, Est GFR (MDRD) Non-Af 106, BUN/Creatinine Ratio 28.8 H, Glucose 83, Calcium 8.1 L 07/31/21 05:32: WBC 13.5 H, RBC 3.77 L, Hgb 12.0, Hct 34.7 L, MCV 92.0, MCH 31.8, MCHC 34.6, RDW Std Deviation 50.3 H, RDW Coeff of [place] 14.8 H, Plt Count 241, MPV 9.7, Immature Gran % (Auto) 0.800, Neut % (Auto) 72.6 H, Lymph % (Auto) 17.1 L, Gregg % (Auto) 8.7, Eos % (Auto) 0.7, Baso % (Auto) 0.1, Absolute Neuts (auto) 9.8 H, Absolute Lymphs (auto) 2.31, Nucleated RBC % 0 07/31/21 05:32: Sodium 134 L, Potassium 3.8, Chloride 98, Carbon Dioxide 32.0, Anion Gap 4 L, BUN 27 H, Creatinine 0.72, Estim Creat Clear Calc 43.27, Est GFR (MDRD) Af Amer 102, Est GFR (MDRD) Non-Af 84, BUN/Creatinine Ratio 37.4 H, Glucose 97, Calcium 8.7 Micro: Microbiology 07/26/21 14:02 Mucosa - Nasopharyngeal - Final 07/26/21 14:02 Nasal Secretion SARS-CoV-2 Antigen (Rapid) - Final Radiography Diagnostic Testing: Radiology Impression Chest X-Ray 07/30/21 08:20 IMPRESSION: Stable examination. No acute amount is seen. Electronically Signed: Chang Shepard MD at 13:15 EST , Physical Exam Const alert and no apparent distress Constitutional Narrative: No conversational dyspnea noted. General Appearance: cooperative HEENT normocephalic, head/scalp atraumatic and moist oral mucous membranes Eyes PERRL, EOMs intact bilaterally and conjunctivae normal Neck supple General: trachea midline Chest Chest: abnormal inspection of the chest barrel chest and increased A-P diameter Resp Resp Narrative: Diminished breath sounds with right basilar wheezing noted. Effort and Inspection: prolonged expiratory phase Auscultation: diminished lung sounds Cardio regular rate and regular rhythm GI normal to inspection, nondistended, normoactive bowel sounds Extremity no clubbing, cyanosis or edema Skin no rashes or lesions noted Neuro CN's II-XII intact bilaterally, moves all extremities and no focal motor deficits Psych cooperative and affect normal Charges/Coding Visit Charges Inpatient E&M: 08726 Subs Hosp L2
[2021-07-31] MEDS: Enoxaparin 40 MG/0.4 ML Syringe SC (08:53)
[2021-07-31] MEDS: predniSONE 20 MG Tablet 40 MG PO (08:53)
[2021-07-31] MEDS: Doxycycline 100 MG CAPSULE PO (08:53)
[2021-07-31] MEDS: Aspirin 81 MG TAB.CHEW PO (08:53)
[2021-07-31] MEDS: Cholecalciferol (VIT D3) 25 MCG TABLET (1,000 UNITS) 125 MCG PO (08:54)
[2021-07-31] MEDS: Pantoprazole Sodium 20 MG Tablet PO (08:54)
[2021-07-31] MEDS: Clopidogrel Bisulfate 75 MG Tablet PO (08:54)
--- NOTE | 2021-07-31 11:34 | CASEMGMT ---
Addendum entered by Esther Brandon 07/31/21 14:27: Spoke to Guille at [facility], pt recently started on NIV. No orders needed to continue. He will have his resp therapist reach out to pt to make sure that it is going well with the patient. Original Note: TC dony Lorenzo at [facility] to make aware pt will dc today. Pt qualifies for increased O2 need, faxed updated script to [facility]. RN CM in to pt room. Pt up speaking with [facility]. She denies need for therapy at this time. Pt states she is feeling much better. Pt son to bring in her portable O2 tanks. Pt denies further needs.
--- NOTE | 2021-07-31 11:38 | DS.PCM_ITS ---
Providers Date of Admission: 07/27/21 Primary Care Physician: Dr. Mike Lino MD Consultations 07/27/21 09:44 Consult: Customer Care Voice Consultant / Pulmonary Medicine Routine Consulting Provider: [facility] Reason for Consult: COPD EMERGENT Consult: No MD Notified: Yes Date Notified: 07/27/21 Time Notified: 09:44 Method of Notification: Verbal Reason For Visit: COPD Diagnosis Discharge Diagnosis (1) COPD exacerbation: Status: Chronic Code(s): J44.1 - Chronic obstructive pulmonary disease with (acute) exacerbation Medications at Discharge Home Medications albuterol sulfate 1 puff INHALATION DAILY 10/21/17 fluticasone furoate-vilanterol 1 puff INHALATION BID 10/21/17 levothyroxine 137 mcg PO DAILY 05/12/19 aspirin 81 mg PO DAILY@0800 #30 tab.chew 06/28/19 clopidogrel 75 mg tablet 75 mg PO DAILY #90 tablet 11/24/20 lisinopril 5 mg tablet 5 mg PO DAILY #90 tab 01/22/21 carvedilol 3.125 mg tablet 3.125 mg PO BID #180 tab 02/14/21 cholecalciferol (vitamin D3) 125 mcg (5,000 unit) capsule 125 mcg PO DAILY 02/23/21 esomeprazole magnesium 20 mg capsule,delayed release 20 mg PO DAILY cap 02/23/21 atorvastatin 40 mg tablet 40 mg PO DAILY #90 tablet 05/28/21 tamoxifen 20 mg tablet 20 mg PO DAILY 90 Days #90 tablet 07/12/21 sulfamethoxazole-trimethoprim 1 tab PO Q12H 07/26/21 prednisone 10 mg PO DAILY #40 tab 07/31/21 Hospital Course Operations None Procedures None Summary of Care Provided Minutes Spent on Discharge: 39 Hospital Course: Mrs. Larose is a 75-year-old white female who presented to the emergency department at [facility] on 07/27/2021 with a chief complaint of shortness of breath. The patient follows with Dr. Vyas at baseline and has a history of Langerhans cell histiocytosis as well as COPD with chronic hypoxic respiratory failure who is on 2 L at baseline. Patient did have COVID in June 2021. The patient does continue to smoke cigarettes. She was admitted to the medical floor and placed on scheduled bronchodilators, azithromycin and IV steroids. Covid rapid was negative. Influenza and RSV PCR's were negative. And she was maintained on IV steroids and completed a course of 5 days of azithromycin prior to discharge. She unfortunately remained on 2 L of oxygen at rest which is her baseline but did require 4 L with ambulation with testing prior to discharge. She was given as needed Lasix to maintain euvolemia for optimized lung function. And by 07/31/2021 she stabilized to the point where she was stable enough for discharge home. She was followed by pulmonary medicine throughout her hospitalization. We have counseled her extensively on tobacco cessation. As it is contributing to the worsening of her lung disease. She was placed on a very slow prednisone taper starting with 40 mg for 4 days and tapering by 10 mg every 4 days until she is completed the dosing. She is to continue her home inhalers and has been instructed to follow-up in the pulmonary clinic in 2 weeks. She was also evaluated by palliative care during her hospitalization and will have ongoing input with them after discharge for symp dottie management. Discharge diagnoses: Acute on chronic hypoxic respiratory failure secondary to acute exacerbation of COPD Leukocytosis-resolving Chronic hyponatremia-likely related to chronic lung disease Hyper thyroidism GERD COPD Langerhans histiocytosis CAD Hypertension Hyperlipidemia History of breast cancer GERD Hypothyroidism Physical Exam Const alert, oriented x3 and average body habitus Constitutional Narrative: White female who appears older than stated age, sit ting up in bed, some conversational dyspnea only mild increased work of breathing with conversation, nontoxic appearing, nursing at bedside General Appearance: cooperative, comfortable, well kempt and well developed Orientation / Consciousness: awake Exam Limitations: no limitations Nutritional Appearance: overweight HEENT normocephalic, head/scalp atraumatic, moist oral mucous membranes and oropharynx normal HEENT Narrative: Mallampati is 2-3, no thrush, dentition is fair for age Eyes PERRL, EOMs intact bilaterally and conjunctivae normal Eyes Narrative: No scleral icterus Neck no lymphadenopathy, supple and no JVD Neck Narrative: Trachea midline, no thyroid enlargement Resp no retractions, no use of accessory muscles and clear to auscultation bilaterally Resp Narrative: Mild tachypnea, markedly diminished but no adventitious sounds, mild conversational dyspnea however the patient reports this is her baseline Auscultation: Negative for crackles, rales, rhonchi or wheezes Cardio regular rate, regular rhythm, S1 normal heart sound, S2 normal heart sound, no murmurs, no rub, no gallops, no clicks and no JVD GI normal to inspection, nondistended, normoactive bowel sounds, soft to palpation, non-tender and non-distended Extremity no clubbing, cyanosis or edema Skin no rashes or lesions noted, no wounds, skin turgor normal and no jaundice Skin Narrative: Skin is pale Neuro oriented x3, CN's II-XII intact bilaterally, moves all extremities, no focal motor deficits and no sensory deficits noted Sensorium / Orientation: awake and alert Speech: speech normal Psych affect normal Weight / BMI Weight Weight: 68.7 kg Body Mass Index (BMI) 25.7 ABG / Lab / Microbiology Data Result Diagrams: 07/31/21 05:32 07/31/21 05:32 Laboratory: Laboratory Results - last 24 hr 07/31/21 05:32: WBC 13.5 H, RBC 3.77 L, Hgb 12.0, Hct 34.7 L, MCV 92.0, MCH 31.8, MCHC 34.6, RDW Std Deviation 50.3 H, RDW Coeff of Ermelinda 14.8 H, Plt Count 241, MPV 9.7, Immature Gran % (Auto) 0.800, Neut % (Auto) 72.6 H, Lymph % (Auto) 17.1 L, Hood % (Auto) 8.7, Eos % (Auto) 0.7, Baso % (Auto) 0.1, Absolute Neuts (auto) 9.8 H, Absolute Lymphs (auto) 2.31, Nucleated RBC % 0 07/31/21 05:32: Sodium 134 L, Potassium 3.8, Chloride 98, Carbon Dioxide 32.0, Anion Gap 4 L, BUN 27 H, Creatinine 0.72, Estim Creat Clear Calc 43.27, Est GFR (MDRD) Af Amer 102, Est GFR (MDRD) Non-Af 84, BUN/Creatinine Ratio 37.4 H, Glucose 97, Calcium 8.7 Microbiology: Microbiology 07/26/21 14:02 Mucosa - Nasopharyngeal - Final 07/26/21 14:02 Nasal Secretion SARS-CoV-2 Antigen (Rapid) - Final Radiography Diagnostic Testing: Radiology Impression Chest X-Ray 07/30/21 08:20 IMPRESSION: Stable examination. No acute amount is seen. Electronically Signed: Chang Shepard MD at 13:15 EST , D/C Instructions Discharge Diet: Low fat / Low cholesterol Discharge Activity: Return to Normal Activity Meaningful Use Info Meaningful Use Diagnoses (Choose all that apply): None applicable Discharge Plan Admission Admit Date/Time: 07/27/21 09:27 Primary Reason for Your Visit: Shortness of breath Attending Provider: Claire Austin Primary Care Provider: Mike Lino Consulting Providers: Johann Lugo ; Ruiz Vyas ; Sherine Black LPN CMA Discharge Orders/Prescriptions Prescriptions: New prednisone 10 mg tablet 10 mg PO DAILY Qty: 40 RF: 0 Continued tamoxifen 20 mg tablet 20 mg PO DAILY 90 Days Qty: 90 RF: 3 esomeprazole magnesium 20 mg capsule,delayed release(DR/EC) 20 mg PO DAILY RF: 0 cholecalciferol (vitamin D3) 125 mcg (5,000 unit) capsule 125 mcg PO DAILY RF: 0 albuterol sulfate 1 INHALER inhaler 1 puff INHALATION DAILY RF: 0 fluticasone furoate-vilanterol 1 EACH blister with device 1 puff INHALATION BID RF: 0 levothyroxine 137 MCG tablet 137 mcg PO DAILY RF: 0 aspirin 81 MG tablet,chewable 81 mg PO DAILY@0800 Qty: 30 RF: 1 sulfamethoxazole-trimethoprim 800-160 mg tablet 1 tab PO Q12H RF: 0 clopidogrel [Plavix] 75 mg tablet 75 mg PO DAILY Qty: 90 RF: 4 lisinopril 5 mg tablet 5 mg PO DAILY Qty: 90 RF: 3 carvedilol 3.125 mg tablet 3.125 mg PO BID Qty: 180 RF: 3 atorvastatin 40 mg tablet 40 mg PO DAILY Qty: 90 RF: 3 Discontinued prednisone 20 mg tablet 20 mg PO DAILY RF: 0 Referrals / Follow Up: Ruiz Vyas DO [STAFF PHYSICIAN] - Within 2 Weeks Mike Lino MD [Primary Care Provider] - Within 2 Weeks Disposition Disposition (needs filled in before D/C Order can be placed): Home Health Service Charges/Coding Visit Charges Inpatient E&M: 74933 Disch Hosp
== END 2021-07-31 16:42 | disposition home health service (06) | DRG 190 ==
LOC: ED 13:08 → MS3 13:39
PROVIDERS: Internal Medicine Critical Care Medicine; Admitting Provider Internal Medicine; Emergency Provider Emergency Medicine; PCP Family Medicine; Visit Provider Internal Medicine
DX: J44.1 Chronic obstructive pulmonary disease with (acute) exacerbation (principal); J96.21 Acute and chronic respiratory failure with hypoxia; E22.2 Syndrome of inappropriate secretion of antidiuretic hormone; J84.82 Adult pulmonary Langerhans cell histiocytosis; I50.32 Chronic diastolic (congestive) heart failure; C50.911 Malignant neoplasm of unspecified site of right female breast; I11.0 Hypertensive heart disease with heart failure; E03.9 Hypothyroidism, unspecified; I25.10 Atherosclerotic heart disease of native coronary artery without angina pectoris; F17.200 Nicotine dependence, unspecified, uncomplicated; I25.5 Ischemic cardiomyopathy; K21.9 Gastro-esophageal reflux disease without esophagitis; F17.210 Nicotine dependence, cigarettes, uncomplicated; E78.5 Hyperlipidemia, unspecified; I25.2 Old myocardial infarction; Z79.02 Long term (current) use of antithrombotics/antiplatelets; Z79.82 Long term (current) use of aspirin; Z79.01 Long term (current) use of anticoagulants; Z20.822 Contact with and (suspected) exposure to COVID-19; Z51.5 Encounter for palliative care; Z71.6 Tobacco abuse counseling; Z86.16 Personal history of COVID-19; Z87.19 Personal history of other diseases of the digestive system; Z79.899 Other long term (current) drug therapy; Z95.5 Presence of coronary angioplasty implant and graft; Z87.01 Personal history of pneumonia (recurrent); E66.3 Overweight; Z68.25 Body mass index [BMI] 25.0-25.9, adult
CPT/HCPCS: 36415; 71045; 71046; 80048; 83735; 83880; 84484; 85025; 85379; 87426; 87632; 93005; 94003; 94640; 94660; 94667; 94668; 97802; 99251; 99285; 99406; A4216; G0463; J1940

== ENCOUNTER → 2021-11-14 | Outpatient (CLI) | payer MEDICARE, SELFPAY ==
[2020-07-26 12:02] VITALS: BMI 27.8
[2021-11-14 13:35] LABS: Anion Gap 3 (5-15); BUN 15 mg/dL (7-18); BUN/Creat Ratio 20.2 RATIO (10-20); Calcium,Total 8.6 mg/dL (8.5-10.1); Chloride 97 mmol/L (98-107); Creatinine, Serum 0.74 mg/dL (0.55-1.02); EST Glomerular Filtration Rate 81 mL/min (>60); Est Glom Filt Rate - Afr Amer 98 mL/min (>60); Glucose 96 mg/dL (74-106); Potassium 4.3 mmol/L (3.5-5.1); Sodium Level 137 mmol/L (136-145)
== END | disposition home or self-care (01) ==
LOC: LABSPEC 13:02
PROVIDERS: PCP Family Medicine; Visit Provider Internal Medicine Cardiovascular Disease
DX: R06.02 Shortness of breath (principal)
CPT/HCPCS: 80048

== ENCOUNTER 2022-05-23 15:12 | Inpatient (IN) | payer MEDICARE, SELFPAY ==
[2020-07-26 12:02] VITALS: BMI 27.8
[2022-05-23] VITALS (14 sets, daily range): BP systolic 106–146; BP diastolic 53–100; PULSE 70–112; RESP 12–33; TEMP 36.2–37; O2SAT 83–99; BMI 27.8
[2022-05-23] MEDS: Albuterol 2.5 MG/3 ML VIAL.NEB. INHALATION ×3 (16:09)
[2022-05-23] MEDS: Ipratropium/Albuterol Sulfate 3 ML AMPUL.NEB INHALATION (16:09)
--- NOTE | 2022-05-23 16:09 | ED.VIS.DYS ---
HPI History of Present Illness Chief Complaint: Shortness of Breath Informant: patient Onset/Context/Timing Onset: Days (3) Context: gradual and onset Timing: Continuous Quality: Positive for Wheezing Current Severity: Moderate Maximum Severity: Severe Worsened by: Exertion and Coughing Relieved by: Albuterol Associated Symptoms cough Chest Pain: Positive for None Narrative Narrative: Patient with a history of COPD felt like she was having a respiratory illness starting 3 days ago progressively worsening with regards to her breathing. No chest discomfort. No fevers or chills. States her sister had influenza A but I have not been around her in 4 days. No leg swelling worse than usual. No orthopnea. She has albuterol at home that is helping some, but everything is just gradually been worsening. EMS gave her Solu-Medrol 125 mg IV prior to arrival here. 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 Asthma Asthma with COPD Atherosclerosis of coronary artery of [place] heart without angina pectoris Breast cancer Breast cancer, right breast Chronic systolic (congestive) heart failure COPD (chronic obstructive pulmonary disease) COVID-19 MODI (dyspnea on exertion) Elevated troponin (10/11/19) Encounter for insertion of venous access port Encounter for monitoring cardiotoxic drug therapy Foot swelling Fracture, skull History of alcohol abuse History of elevated glucose History of non-ST elevation myocardial infarction (NSTEMI) (10/11/19) History of right breast cancer Hypokalemia due to loss of potassium Hypothyroidism (acquired) Ileus Ischemic cardiomyopathy Large bowel obstruction Nicotine dependence On home oxygen therapy port placement 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 Home Medications albuterol sulfate 90 mcg/actuation aerosol inhaler 1 puff inhalation DAILY asthma 10/21/17 [History Last Taken 07/25/21] levothyroxine 137 mcg tablet 137 mcg PO DAILY thyroid 05/12/19 [History Last Taken 07/26/21] aspirin 81 mg chewable tablet 81 mg PO DAILY@0800 ##30 06/28/19 [Rx Last Taken 07/26/21] lisinopril 5 mg tablet 5 mg PO DAILY #90 tabs 01/22/21 [Rx Last Taken 07/25/21] carvedilol 3.125 mg tablet 3.125 mg PO BID #180 tabs 02/14/21 [Rx Last Taken 07/26/21] cholecalciferol (vitamin D3) 125 mcg (5,000 unit) capsule 125 mcg PO DAILY Check with primary doctor 02/23/21 [History Last Taken 07/26/21] atorvastatin 40 mg tablet 40 mg PO DAILY cholesterol #90 tabs 05/28/21 [Rx Last Taken 07/25/21] tamoxifen 20 mg tablet 20 mg PO DAILY 90 days #90 tabs 07/12/21 [Rx Last Taken 07/25/21] prednisone 10 mg tablet 10 mg PO DAILY #100 tabs 08/15/21 [Rx Last Taken Unknown] diazepam 2 mg tablet 2 - 4 mg PO DAILY PRN 10/03/21 [History Last Taken Unknown] morphine concentrate 100 mg/5 mL (20 mg/mL) oral solution 2.5 mg PO Q6H PRN SOB 10/03/21 [History Last Taken Unknown] oxycodone 5 mg tablet 2.5 mg PO BID PRN 10/03/21 [History Last Taken Unknown] tiotropium bromide 2.5 mcg/actuation mist for inhalation (Spiriva Respimat) 2 puff inhalation QDAY #3 ea 10/03/21 [Rx Last Taken Unknown] prednisone 10 mg tablet 10 mg PO QDAY #30 tabs 10/08/21 [Rx Last Taken Unknown] esomeprazole magnesium 20 mg capsule,delayed release 20 mg PO DAILY Check with primary doctor #90 caps 10/09/21 [Rx Last Taken Unknown] clopidogrel 75 mg tablet (Plavix) 75 mg PO DAILY #90 tabs 12/14/21 [Rx Last Taken Unknown] Allergy/AdvReac Type Severity Reaction Status Date / Time No Known Allergies Allergy Verified 05/23/22 15:13 Family History (Reviewed 10/03/21 @ 10:25 by Sherine Black REFRIGERATING TECHNICIAN, REFRIGERATING TECHNICIAN-C) Brother Cancer Father Lung cancer Aunt Cancer Mother Asthma Thyroid disorder Heart disease Surgical History H/O toe surgery H/O ultrasound guided needle biopsy History of appendectomy History of back surgery History of coronary artery stent placement (06/25/19) History of modified radical mastectomy of right breast Social History household members: family Smoking Status: Current every day smoker tobacco type: cigarettes alcohol intake: never substance use type: does not use ROS ROS ED Constitutional Constitutional ED: Reports malaise; Denies body ache(s), chills, fever(s) or headache(s) Eyes Eyes: Denies change in vision or diplopia ENT ENT ED: Denies rhinorrhea or sore throat Cardiovascular Cardiovascular: Denies chest pain or palpitations Respiratory/Chest Respiratory/Chest: Reports cough, dyspnea, dyspnea on exertion and wheezing Gastrointestinal Gastrointestinal: Denies abdominal pain, diarrhea, nausea or vomiting Genitourinary Genitourinary ED: Denies dysuria or hematuria Musculoskeletal Musculoskeletal: Denies back pain or neck pain Integumentary Denies abscess or rash Neurologic Neurologic: Denies headache(s), paresthesias or weakness Psychiatric Psychiatric: Denies anxiety or suicidal thoughts EXAM Physical Exam Const Vital Signs: 05/23/22 15:13 05/23/22 15:25 05/23/22 15:26 Temperature 97.4 F L Temperature Source Temporal Pulse Rate 112 H 70 Respiratory Rate 27 H 33 H Respiratory Effort Short of Breath Respiratory Depth Normal Respiratory Pattern Normal Blood Pressure 121/77 H 121/77 H Blood Pressure Mean 91 91 Pulse Ox 83 98 Oxygen Delivery Method Nasal Cannula Nasal Cannula Nasal Cannula Oxygen Flow Rate (L/min) 3 3 3 Fraction of Inspired Oxygen (FIO2) 05/23/22 16:10 05/23/22 17:30 05/23/22 18:03 Temperature Temperature Source Pulse Rate 92 81 Respiratory Rate 30 H 28 H Respiratory Effort Respiratory Depth Respiratory Pattern Hyperpnea Hyperpnea Blood Pressure Blood Pressure Mean Pulse Ox 99 Oxygen Delivery Method Bi-pap Oxygen Flow Rate (L/min) Fraction of Inspired Oxygen (FIO2) 40 05/23/22 19:19 Temperature 97.6 F L Temperature Source Temporal Pulse Rate 85 Respiratory Rate 19 H Respiratory Effort Respiratory Depth Respiratory Pattern Blood Pressure 119/68 Blood Pressure Mean 85 Pulse Ox 94 Oxygen Delivery Method Bi-pap Oxygen Flow Rate (L/min) Fraction of Inspired Oxygen (FIO2) Positive well nourished and well developed Constitutional Narrative: Malaised-appearing, mild respiratory distress. Keenly alert. General Appearance ED: well developed HEENT Reports moist mucous membranes normocephalic and atraumatic Eyes PERRL and EOMs intact bilaterally Neck full ROM, no lymphadenopathy, supple and no meningeal signs Resp Resp Narrative: Mild respiratory distress, diffuse expiratory wheezes and prolonged expiratory phase. No other adventitious breath sounds. Cardio regular rate, regular rhythm and no murmurs Rate: Negative for tachycardic GI non-tender and non-distended Auscultation: normoactive bowel sounds Palpation: soft Back/Spine no CVA tenderness General Back: other FROM Extremity normal to inspection and no calf tenderness General Extremety ED: Yes edema; Negative for pulses abnormal or tenderness General Extremity: edema bilateral lower extremity Details: trace (Symmetric, no calf tenderness or palpable cords); Negative for pulses abnormal Neuro oriented x3, CN's II-XII intact bilaterally and no sensory deficits noted Sensorium / Orientation: awake and alert Motor Exam: strength 5/5 throughout Skin no rashes or lesions noted and no wounds MDM MDM MDM Narrative Medical decision making narrative: After around the nebulizer treatments, the patient was still in respiratory distress, we placed her on BiPAP after getting an ABG confirming a mild acute respiratory acidosis on top of chronic CO2 retention that is acutely worse with a PCO2 of 81. This helped her breathing and oxygenation. Her influenza swab came back positive, chest x-ray 2 views on my interpretation shows a possible left lower lobe infiltrate consistent with influenza pneumonia, however radiology thought it was unchanged compared with her prior likely indicating scarring. Solu-Medrol was already given by EMS. Plan is for admission. Even though she is just outside of the 48-hour recommended window for Tamiflu I am giving it to her because of the severity of illness. Lab Data Attestation: I reviewed the patient's lab results. Labs: Laboratory Results - last 24 hr 05/23/22 05/23/22 05/23/22 18:20 18:20 18:20 WBC 9.2 RBC 4.20 Hgb 13.0 Hct 43.0 MCV 102.4 H MCH 31.0 MCHC 30.2 L RDW Std Deviation 53.7 H RDW Coeff of Ermelinda 14.2 Plt Count 224 MPV 10.1 Immature Gran % (Auto) 0.300 Neut % (Auto) 97.0 H Lymph % (Auto) 1.2 L [place] % (Auto) 1.3 Eos % (Auto) 0.0 Baso % (Auto) 0.2 Absolute Neuts (auto) 8.9 H Absolute Lymphs (auto) 0.11 L Nucleated RBC % 0 Differential Comment SCANNED PT 12.2 INR 0.9 APTT 26.1 Sodium 135 L Potassium 4.8 Chloride 95 L Carbon Dioxide 43.0 H Anion Gap -3 L BUN 12 Creatinine 0.65 Estim Creat Clear Calc 42.62 Est GFR (MDRD) Af Amer 115 Est GFR (MDRD) Non-Af 95 BUN/Creatinine Ratio 18.5 Glucose 169 H Lactic Acid Calcium 8.8 Total Bilirubin 0.50 AST 10 L ALT 18 Alkaline Phosphatase 69 Troponin I High Sens 4 Total Protein 7.0 Albumin 3.3 Globulin 3.7 Albumin/Globulin Ratio 0.9 05/23/22 18:20 WBC RBC Hgb Hct MCV MCH MCHC RDW Std Deviation RDW Coeff of Ermelinda Plt Count MPV Immature Gran % (Auto) Neut % (Auto) Lymph % (Auto) [place] % (Auto) Eos % (Auto) Baso % (Auto) Absolute Neuts (auto) Absolute Lymphs (auto) Nucleated RBC % Differential Comment PT INR APTT Sodium Potassium Chloride Carbon Dioxide Anion Gap BUN Creatinine Estim Creat Clear Calc Est GFR (MDRD) Af Amer Est GFR (MDRD) Non-Af BUN/Creatinine Ratio Glucose Lactic Acid 0.7 Calcium Total Bilirubin AST ALT Alkaline Phosphatase Troponin I High Sens Total Protein Albumin Globulin Albumin/Globulin Ratio ABG Data ABG results: ABG 05/23/22 17:35 Specimen Type ART Sample Site L Radial pH 7.31 L Bicarbonate Actual 41.2 H Total CO2 44 Base Excess 15 H O2 Saturation 91 L ABG pCO2 81.4 H* ABG pO2 72 L José Miguel Test Positive O2 Delivery Device Cannula Liter Flow 5.0 Crit Call To/Read Back Yes Radiography Chest X-Ray - ED: 2 View, Read by ED Physician and Chronic Changes (poss LLL infiltrate, although similar to prior) Diagnostic Testing: Clinical Impression(s) from Imaging Studies Chest X-Ray 05/23/22 17:18 IMPRESSION: Mild basilar scarring. There is no acute pulmonary abnormality. 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
--- NOTE | 2022-05-23 17:18 | RAD_ITS ---
EXAM: XR CHEST, 2 VIEWS CLINICAL INDICATION: cough sob TECHNIQUE: Frontal and lateral views of the chest. This report was created using [employer] report generation technology. COMPARISON: 07/30/2021 FINDINGS: LUNGS AND PLEURAL SPACES: There is mild scarring in the lung bases. No pneumothorax. No effusion. HEART: Unremarkable. Cardiac silhouette not enlarged. MEDIASTINUM: Central airways and mediastinal contour are unremarkable. BONES/JOINTS: Unremarkable. SOFT TISSUES: Unremarkable. RAD/Chest PA and Lateral IMPRESSION: Mild basilar scarring. There is no acute pulmonary abnormality. Electronically Signed: John Davey MD at 18:09 EST ,
[2022-05-23 17:40] LABS: Allen Test Positive; Base Excess 15 mmol/L (-2 to +2); Bicarbonate 41.2 mmol/L (22-26); Blood Gas Specimen Type ART; O2 Delivery Device Cannula; PO2 72 mmHG (75-100); SITE L Radial; SO2 91 % (95-99); Total Carbon Dioxide 44 mmol/L; pCO2 81.4 mmHg (35-45); pH 7.31 (7.35-7.45)
--- NOTE | 2022-05-23 17:49 | CPS ---
Critical value verified times 2, handed to dr preston. verified by read back.
[2022-05-23 18:37] LABS: Absolute Lymphocyte Count 0.11 X10^3/uL (0.83-4.51); Absolute Neutrophil Count 8.9 X10^3/uL (2.0-7.7); Basophil# 0.02 X10^3/uL; Basophil% 0.2 % (0-1); Lymphocyte # 0.11 X10^3/ul (0.83-4.51); Lymphocyte % 1.2 % (19-41); Mean Corp Hgb Conc 30.2 g/dL (32-36); Mean Corpuscular Volume 102.4 fL (81-99); Mean Platelet Vol. 10.1 fl (6.2-12.0); Monocyte# 0.12 X10^3/uL; Monocyte% 1.3 % (0-10); NRBC Flagged by Analyzer 0 % (0-5); Neutrophil # 8.88 X10^3/uL (2.7-7.7); POSITIVE DIFFERENTIAL YES; Platelet Count 224 K/mm3 (150-450); RBC Distribution Width CV 14.2 % (11.6-14.6); RBC Distribution Width SD 53.7 fl (35.1-43.9); White Blood Count 9.2 K/mm3 (4.4-11.0)
[2022-05-23 18:45] LABS: Differential Indicated SCAN CRITERIA MET
[2022-05-23 18:46] LABS: International Normalized Ratio 0.9; Prothrombin Time (Protime)PT. 12.2 SECONDS (11.7-14.9)
[2022-05-23 18:47] LABS: Partial Thromboplast Time 26.1 Seconds (24.1-36.2)
[2022-05-23] MEDS: Oseltamivir Phosphate 75 MG Capsule PO (18:55)
[2022-05-23] MEDS: 0.9% Normal Saline 1,000 ML 150 ML IV (18:55)
[2022-05-23 19:04] LABS: Lactic Acid 0.7 mmol/L (0.4-1.9)
[2022-05-23 19:09] LABS: ALB/GLOB Ratio 0.9 RATIO (0.9-2.4); AST(SGOT) 10 U/L (15-37); Alanine Aminotransfer ALT/SGPT 18 U/L (13-56); Albumin, Serum 3.3 g/dL (3.2-5.0); Alkaline Phosphatase 69 U/L (45-117); Anion Gap -3 (5-15); BUN 12 mg/dL (7-18); BUN/Creat Ratio 18.5 RATIO (10-20); Calcium,Total 8.8 mg/dL (8.5-10.1); Chloride 95 mmol/L (98-107); Creatinine, Serum 0.65 mg/dL (0.55-1.02); EST Glomerular Filtration Rate 95 mL/min (>60); Est Glom Filt Rate - Afr Amer 115 mL/min (>60); Estimated Creatinine Clearance 42.62 ml/min; Globulin 3.7 g/dL (2.2-4.2); Glucose 169 mg/dL (74-106); Potassium 4.8 mmol/L (3.5-5.1); Sodium Level 135 mmol/L (136-145); Troponin-I HS 4 pg/mL (3.0-54.0)
[2022-05-23 19:13] LABS: Differential Comment SCANNED
--- NOTE | 2022-05-23 20:02 | PCM.HP.STD ---
HPI - General General Date of Admission: 05/23/22 Date of Service: 05/23/22 Chief Complaint: Dyspnea HPI Narrative NURYS DIAZ, is a 76 F who presents with a significant history of chronic systolic heart failure; COPD on baseline 3 L nasal cannula oxygen; hypothyroidism; ischemic cardiomyopathy; tobacco abuse and alcoholism who presents emergency department with a 2-day history of progressively worsening dyspnea. Her dyspnea is with exertion. She reported she is too dyspneic to move. She has been trying some home albuterol which is not really helping. Associated with symptoms is a congested cough that she cannot expectorate. She reports more wheezing above her baseline. She has good appetite. 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 Asthma Asthma with COPD Atherosclerosis of coronary artery of [place] heart without angina pectoris Breast cancer Breast cancer, right breast Chronic systolic (congestive) heart failure COPD (chronic obstructive pulmonary disease) COVID-19 MODI (dyspnea on exertion) Elevated troponin (10/11/19) Encounter for insertion of venous access port Encounter for monitoring cardiotoxic drug therapy Foot swelling Fracture, skull History of alcohol abuse History of elevated glucose History of non-ST elevation myocardial infarction (NSTEMI) (10/11/19) History of right breast cancer Hypokalemia due to loss of potassium Hypothyroidism (acquired) Ileus Ischemic cardiomyopathy Large bowel obstruction Nicotine dependence On home oxygen therapy port placement 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 Home Medications albuterol sulfate 90 mcg/actuation aerosol inhaler 1 puff inhalation DAILY asthma 10/21/17 [History Last Taken 07/25/21] levothyroxine 137 mcg tablet 137 mcg PO DAILY thyroid 05/12/19 [History Last Taken 07/26/21] aspirin 81 mg chewable tablet 81 mg PO DAILY@0800 ##30 06/28/19 [Rx Last Taken 07/26/21] lisinopril 5 mg tablet 5 mg PO DAILY #90 tabs 01/22/21 [Rx Last Taken 07/25/21] carvedilol 3.125 mg tablet 3.125 mg PO BID #180 tabs 02/14/21 [Rx Last Taken 07/26/21] cholecalciferol (vitamin D3) 125 mcg (5,000 unit) capsule 125 mcg PO DAILY Check with primary doctor 02/23/21 [History Last Taken 07/26/21] atorvastatin 40 mg tablet 40 mg PO DAILY cholesterol #90 tabs 05/28/21 [Rx Last Taken 07/25/21] tamoxifen 20 mg tablet 20 mg PO DAILY 90 days #90 tabs 07/12/21 [Rx Last Taken 07/25/21] prednisone 10 mg tablet 10 mg PO DAILY #100 tabs 08/15/21 [Rx Last Taken Unknown] diazepam 2 mg tablet 2 - 4 mg PO DAILY PRN 10/03/21 [History Last Taken Unknown] morphine concentrate 100 mg/5 mL (20 mg/mL) oral solution 2.5 mg PO Q6H PRN SOB 10/03/21 [History Last Taken Unknown] oxycodone 5 mg tablet 2.5 mg PO BID PRN 10/03/21 [History Last Taken Unknown] tiotropium bromide 2.5 mcg/actuation mist for inhalation (Spiriva Respimat) 2 puff inhalation QDAY #3 ea 10/03/21 [Rx Last Taken Unknown] prednisone 10 mg tablet 10 mg PO QDAY #30 tabs 10/08/21 [Rx Last Taken Unknown] esomeprazole magnesium 20 mg capsule,delayed release 20 mg PO DAILY Check with primary doctor #90 caps 10/09/21 [Rx Last Taken Unknown] clopidogrel 75 mg tablet (Plavix) 75 mg PO DAILY #90 tabs 12/14/21 [Rx Last Taken Unknown] Allergy/AdvReac Type Severity Reaction Status Date / Time No Known Allergies Allergy Verified 05/23/22 15:13 Family History Brother Cancer Father Lung cancer Aunt Cancer Mother Asthma Thyroid disorder Heart disease Surgical History H/O toe surgery H/O ultrasound guided needle biopsy History of appendectomy History of back surgery History of coronary artery stent placement (06/25/19) History of modified radical mastectomy of right breast Social History household members: family Smoking Status: Current every day smoker tobacco type: cigarettes alcohol intake: never substance use type: does not use ROS ROS Narrative Pertinent positives and pertinent negatives as noted in HPI. All other systems were reviewed and are negative Vital Signs Vital Signs Vital Signs: 05/23/22 15:13 05/23/22 15:25 05/23/22 15:26 Temperature 97.4 F L Temperature Source Temporal Pulse Rate 112 H 70 Respiratory Rate 27 H 33 H Respiratory Effort Short of Breath Respiratory Depth Normal Respiratory Pattern Normal Blood Pressure 121/77 H 121/77 H Blood Pressure Mean 91 91 Pulse Ox 83 98 Oxygen Delivery Method Nasal Cannula Nasal Cannula Nasal Cannula Oxygen Flow Rate (L/min) 3 3 3 Fraction of Inspired Oxygen (FIO2) 05/23/22 16:10 05/23/22 17:30 05/23/22 18:03 Temperature Temperature Source Pulse Rate 92 81 Respiratory Rate 30 H 28 H Respiratory Effort Respiratory Depth Respiratory Pattern Hyperpnea Hyperpnea Blood Pressure Blood Pressure Mean Pulse Ox 99 Oxygen Delivery Method Bi-pap Oxygen Flow Rate (L/min) Fraction of Inspired Oxygen (FIO2) 40 05/23/22 19:19 Temperature 97.6 F L Temperature Source Temporal Pulse Rate 85 Respiratory Rate 19 H Respiratory Effort Respiratory Depth Respiratory Pattern Blood Pressure 119/68 Blood Pressure Mean 85 Pulse Ox 94 Oxygen Delivery Method Bi-pap Oxygen Flow Rate (L/min) Fraction of Inspired Oxygen (FIO2) Weight Weight: 73.482 kg Body Mass Index (BMI) 27.8 Physical Exam Narrative Physical exam: General: Well-nourished, well-developed. Head: Normocephalic, atraumatic, no tenderness Eyes: Vision is grossly intact. EOMI ENT, no trauma, moist mucous membranes, no rhinorrhea Neck: Nontender, No thyromegaly. CVS: Regular rate and rhythm. S1-S2 present. No murmur, gallop or rub. Respiratory : On BiPAP. Tachypnea. Rhonchi and wheezes. Abdomen: Soft, nontender, nondistended, normal bowel sounds, no masses : Deferred Back: Nontender, no CVA tenderness, no midline spinal tenderness, deformities, step-offs Extremities: Nontender full range of motion, no trauma. Erythema of bilateral legs; left worse than right (reportedly chronic) Skin: Normal color, no trauma, abrasions Neuro: Alert, oriented, cranial nerves II through XII grossly intact. Psychiatry: Normal mood. Normal affect. Not depressed. Not anxious. Results Lab / Micro Data Attestation: I reviewed the patient's lab results. Result Diagrams: 05/23/22 18:20 05/23/22 18:20 Labs: Laboratory Results - last 24 hr 05/23/22 18:20: WBC 9.2, RBC 4.20, Hgb 13.0, Hct 43.0, MCV 102.4 H, MCH 31.0, MCHC 30.2 L, RDW Std Deviation 53.7 H, RDW Coeff of Ermelinda 14.2, Plt Count 224, MPV 10.1, Immature Gran % (Auto) 0.300, Neut % (Auto) 97.0 H, Lymph % (Auto) 1.2 L, [place] % (Auto) 1.3, Eos % (Auto) 0.0, Baso % (Auto) 0.2, Absolute Neuts (auto) 8.9 H, Absolute Lymphs (auto) 0.11 L, Nucleated RBC % 0, Differential Comment SCANNED 05/23/22 18:20: PT 12.2, INR 0.9, APTT 26.1 05/23/22 18:20: Sodium 135 L, Potassium 4.8, Chloride 95 L, Carbon Dioxide 43.0 H, Anion Gap -3 L, BUN 12, Creatinine 0.65, Estim Creat Clear Calc 42.62, Est GFR (MDRD) Af Amer 115, Est GFR (MDRD) Non-Af 95, BUN/Creatinine Ratio 18.5, Glucose 169 H, Calcium 8.8, Total Bilirubin 0.50, AST 10 L, ALT 18, Alkaline Phosphatase 69, Troponin I High Sens 4, Total Protein 7.0, Albumin 3.3, Globulin 3.7, Albumin/Globulin Ratio 0.9 05/23/22 18:20: Lactic Acid 0.7 Micro: Microbiology 05/23/22 16:05 Nasal Secretion SARS-CoV-2 & FLU Antigen (Rapid) - Final Influenzae A ABG Data ABG results: ABG 05/23/22 17:35 Specimen Type ART Sample Site L Radial pH 7.31 L Bicarbonate Actual 41.2 H Total CO2 44 Base Excess 15 H O2 Saturation 91 L ABG pCO2 81.4 H* ABG pO2 72 L José Miguel Test Positive O2 Delivery Device Cannula Liter Flow 5.0 Crit Call To/Read Back Yes Rhythm Strip Rhythm Strip: Sinus Rhythm Rate: 75 Ectopy: None Radiology Impression Chest X-Ray 05/23/22 17:18 IMPRESSION: Mild basilar scarring. There is no acute pulmonary abnormality. Electronically Signed: John Davey MD at 18:09 EST , Assessment & Plan Assessment/Plan (1) Acute respiratory failure with hypoxia and hypercapnia: (2) Influenza A: (3) Hyponatremia: PLAN: Plan Acute hypercapnic and hypoxemic respiratory failure secondary to influenza A infection Tamiflu given the emergency department and continued. ABG showed Influenza was positive CBC showed normal white count. Trend CBC and BMP Chest x-ray was visualized and independently reviewed. Chest x-ray was compared to previous. I agree with radiologist of left basilar scarring. Hyponatremia Chronic Alcoholism Report that she cannot quantify how much she drinks. Counseled on some days she drinks and on some days she does not drink. Does not seem that she is going through withdrawal while in the hospital. Thiamine and folic acid ordered. Check ciwa Tobacco abuse Counseled Nicotine patch patient DVT prophylaxis: Subcutaneous Lovenox ordered Charges/Coding Visit Charges Inpatient E&M: 82211 Init Hosp L3
--- NOTE | 2022-05-23 21:09 | ED.RN ---
Pt angry with this RN for keeping her on BIPAP mask. This RN explained the benefits of BIPAP and why it is necessary. Pt stated, I can make my own medical decisions I want off this mask. Pt also stated she was hungry. Family took this RN out into hallway and explained that pt can do what she wants. This RN again explained the benefits of BIPAP and why it was necessary. Family again pushing for pt to be removed from BIPAP so she can eat. RN removed BIPAP and placed pt on 6L NC. Pulse ox 90-93%. Will be placed back on BIPAP after 30 minutes to decrease aspiration risk.
[2022-05-24] VITALS (26 sets, daily range): BP systolic 94–152; BP diastolic 56–82; PULSE 65–85; RESP 12–26; TEMP 36.4–37.2; O2SAT 94–99; BMI 27.8
--- NOTE | 2022-05-24 04:06 | CPS ---
decreased fio2 to 35%-nurse aware
[2022-05-24] MEDS: Ipratropium/Albuterol Sulfate 3 ML AMPUL.NEB INHALATION ×5 (06:32→22:45)
[2022-05-24] MEDS: 0.9% Saline Lock 10 ML Syringe IV ×3 (07:30→23:06)
[2022-05-24 07:35] LABS: Absolute Neutrophil Count 6.4 X10^3/uL (2.0-7.7); Basophil# 0.01 X10^3/uL; Basophil% 0.1 % (0-1); Hematocrit 39.1 % (37-47); Hemoglobin 11.9 g/dL (12.0-15.0); Lymphocyte % 4.1 % (19-41); Mean Corp Hgb Conc 30.4 g/dL (32-36); Mean Corpuscular Hgb 30.8 pg (27.0-32.0); Mean Corpuscular Volume 101.3 fL (81-99); Mean Platelet Vol. 10.3 fl (6.2-12.0); Monocyte# 0.58 X10^3/uL; Monocyte% 7.9 % (0-10); NRBC Flagged by Analyzer 0 % (0-5); Neutrophil % 87.5 % (47-70); POSITIVE DIFFERENTIAL YES; Platelet Count 196 K/mm3 (150-450); RBC Distribution Width SD 52.4 fl (35.1-43.9); Red Blood Count 3.86 M/mm3 (4.2-5.4); White Blood Count 7.3 K/mm3 (4.4-11.0)
[2022-05-24 07:37] LABS: Differential Indicated SCAN CRITERIA MET
[2022-05-24 08:01] LABS: Anion Gap 0 (5-15); BUN 14 mg/dL (7-18); BUN/Creat Ratio 20.4 RATIO (10-20); Calcium,Total 8.8 mg/dL (8.5-10.1); Chloride 97 mmol/L (98-107); Creatinine, Serum 0.69 mg/dL (0.55-1.02); EST Glomerular Filtration Rate 89 mL/min (>60); Est Glom Filt Rate - Afr Amer 107 mL/min (>60); Estimated Creatinine Clearance 42.62 ml/min; Glucose 113 mg/dL (74-106); Potassium 4.7 mmol/L (3.5-5.1); Sodium Level 137 mmol/L (136-145)
[2022-05-24] MEDS: Enoxaparin 40 MG/0.4 ML Syringe SC (10:51)
[2022-05-24] MEDS: Folic Acid 1 MG Tablet PO (10:51)
[2022-05-24] MEDS: guaiFENesin 1,200 MG Tablet 1200 MG PO ×2 (10:51→23:02)
[2022-05-24] MEDS: Thiamine Hydrochloride 100 MG Tablet PO (10:51)
[2022-05-24] MEDS: Oseltamivir Phosphate 30 MG Capsule PO ×2 (10:51→23:02)
--- NOTE | 2022-05-24 13:08 | PCM.PN.HOSP ---
Objective Data Objective Data Vital Signs: Vital Signs Temp Pulse Resp BP Pulse Ox O2 Del Method O2 Flow Rate 97.6 F L 71 20 H 145/80 H 95 Bi-pap 6 05/24/22 08:57 05/24/22 10:35 05/24/22 10:35 05/24/22 08:57 05/24/22 09:37 05/24/22 10:00 05/23/22 21:06 FiO2 35 05/24/22 10:00 Oxygen Flow Rate (L/min) 6 Oxygen Delivery Method Bi-pap Weight: 162 lb Body Mass Index (BMI) 27.8 Intake & Output: Intake and Output for Last 24 Hours 05/22/22 05/23/22 05/24/22 23:59 23:59 23:59 Intake Total 1000 / 1000 Output Total 250 / 250 Balance 750 / 750 Lab / Micro Data Result Diagrams: 05/24/22 07:10 05/24/22 07:10 Labs: Laboratory Results - last 24 hr 05/23/22 18:20: WBC 9.2, RBC 4.20, Hgb 13.0, Hct 43.0, MCV 102.4 H, MCH 31.0, MCHC 30.2 L, RDW Std Deviation 53.7 H, RDW Coeff of Ermelinda 14.2, Plt Count 224, MPV 10.1, Immature Gran % (Auto) 0.300, Neut % (Auto) 97.0 H, Lymph % (Auto) 1.2 L, [place] % (Auto) 1.3, Eos % (Auto) 0.0, Baso % (Auto) 0.2, Absolute Neuts (auto) 8.9 H, Absolute Lymphs (auto) 0.11 L, Nucleated RBC % 0, Differential Comment SCANNED 05/23/22 18:20: PT 12.2, INR 0.9, APTT 26.1 05/23/22 18:20: Sodium 135 L, Potassium 4.8, Chloride 95 L, Carbon Dioxide 43.0 H, Anion Gap -3 L, BUN 12, Creatinine 0.65, Estim Creat Clear Calc 42.62, Est GFR (MDRD) Af Amer 115, Est GFR (MDRD) Non-Af 95, BUN/Creatinine Ratio 18.5, Glucose 169 H, Calcium 8.8, Total Bilirubin 0.50, AST 10 L, ALT 18, Alkaline Phosphatase 69, Troponin I High Sens 4, Total Protein 7.0, Albumin 3.3, Globulin 3.7, Albumin/Globulin Ratio 0.9 05/23/22 18:20: Lactic Acid 0.7 05/24/22 07:10: WBC 7.3, RBC 3.86 L, Hgb 11.9 L, Hct 39.1, MCV 101.3 H, MCH 30.8, MCHC 30.4 L, RDW Std Deviation 52.4 H, RDW Coeff of Ermelinda 14.0, Plt Count 196, MPV 10.3, Immature Gran % (Auto) 0.400, Neut % (Auto) 87.5 H, Lymph % (Auto) 4.1 L, [place] % (Auto) 7.9, Eos % (Auto) 0.0, Baso % (Auto) 0.1, Absolute Neuts (auto) 6.4, Absolute Lymphs (auto) 0.30 L, Nucleated RBC % 0 05/24/22 07:10: Sodium 137, Potassium 4.7, Chloride 97 L, Carbon Dioxide 40.0 H, Anion Gap 0 L, BUN 14, Creatinine 0.69, Estim Creat Clear Calc 42.62, Est GFR (MDRD) Af Amer 107, Est GFR (MDRD) Non-Af 89, BUN/Creatinine Ratio 20.4 H, Glucose 113 H, Calcium 8.8 Micro: Microbiology 05/23/22 16:05 Nasal Secretion SARS-CoV-2 & FLU Antigen (Rapid) - Final Influenzae A ABG Data ABG results: ABG 05/23/22 17:35 Specimen Type ART Sample Site L Radial pH 7.31 L Bicarbonate Actual 41.2 H Total CO2 44 Base Excess 15 H O2 Saturation 91 L ABG pCO2 81.4 H* ABG pO2 72 L José Miguel Test Positive O2 Delivery Device Cannula Liter Flow 5.0 Crit Call To/Read Back Yes Radiography Diagnostic Testing: Radiology Impression Chest X-Ray 05/23/22 17:18 IMPRESSION: Mild basilar scarring. There is no acute pulmonary abnormality. Electronically Signed: John Davey MD at 18:09 EST , Rhythm Strip Rhythm Strip: Sinus Rhythm Rate: 75 Ectopy: None Physical Exam Narrative Seen and examined. Patient complain of chest tightness. She has chronic shortness of breath but got worse in the last 2 days along with cough due to influenza A. Physical exam: General: Well-nourished, well-developed. BMI 27.8 kg/m?, mild overweight. Alert oriented x3 HEENT: Atraumatic, PERRLA, EOMI, Normocephalic Oral: No Gingival or Mucosal Lesions/ Ulcerations Neck: Supple, No JVD, Negative Carotid Bruits Lungs: Air entry diminished in bilateral lung bases. Bilateral coarse rhonchi and wheezing present. Cardiovascular: Regular rate, Regular Rhythm, Normal S1, Normal S2, No murmurs Abdomen: Bowel Sounds Present, Soft, Non Tender, Non-Distended : No renal angle tenderness. No suprapubic tenderness. Extremities: No edema, Capillary Refill Less than 3 Seconds Skin: No rashes, No breakdown Musculoskeletal: No Tenderness to Palpation of Joints or Extremities Neurological: Cranial nerves II-XII grossly intact, DTR 2+/4 and Symmetrical, Neuro grossly intact Psych/Mental Status: Normal Affect, Appropriate. Assessment & Plan Assessment/Plan (1) Acute respiratory failure with hypoxia and hypercapnia: (2) Influenza A: (3) Hyponatremia: PLAN: Plan This is 76-year-old female with history of COPD on 3 L of home oxygen admitted with 2 days worsening of shortness of breath/dyspnea more on exertion along with cough. 1. Acute hypercapnic and hypoxemic respiratory failure secondary to influenza A bronchitis: Chest x-ray individually reviewed shows bibasilar scarring but no acute abnormality. Tamiflu given the emergency department and continued. ABG showed 7.3 on 5 L of oxygen nasal cannula. Bicarb 40 on BMP and therefore patient is chronic CO2 retainer. Influenza a was positive CBC showed normal white count. 2. COPD exacerbation due to influenza A bronchitis: Patient on bronchodilator DuoNeb scheduled, Solu-Medrol, Mucinex, incentive spirometry and Pep. Hyponatremia chronic: Sodium is 137. Mildly improved. Chronic alcohol use disorder: Report that she cannot quantify how much she drinks. Counseled on some days she drinks and on some days she does not drink. On thiamine and folic acid. Monitor CIWA. Patient does not seem to be in acute alcohol withdrawal. Thiamine and folic acid ordered. Check ciwa Tobacco abuse Counseled Nicotine patch patient DVT prophylaxis: Subcutaneous Lovenox ordered Charges/Coding Visit Charges Inpatient E&M: 30781 Subs Hosp L2
--- NOTE | 2022-05-24 17:14 | CASEMGMT ---
AIME CANTU Discharge Planning Assessment: Face to Face with patient for initial transition planning/care coordination assessment.?Pt alert, oriented and agreeable to participating in assessment. AIME CANTU introduced self and role at [facility], pt voices understanding.? Care providers, pharmacy,?and demographics verified. ? PCP:[facility] Specialists: Hospice, pt revoked services for admission Preferred Pharmacy: [facility] Insurance: [facility] until the end of May due to revoking hospice then [place] MCR Prescription Benefit:?Yes Living Will/HPOA: Yes, pt's is listed as the HPOA but pt states he is cognitively unable to make decisions for her at this time. States her son Seamus is the alternate. LNOK: Pt's spouse and pt's son Seamus Living Arrangements: pt currently lives alone in a single story home with 10 small steps to enter. Pt states he spouse is currently living with her son Seamus due to pt not being able to care for him. Pt states her sister also assists her as needed. Pt is independent with ADLs on her good days. Pt recently began having a school health aide visit once a week to help her shower. Transportation: Pt drives when she is feeling well. If she is unable to drive her son Seamus assists or her sister. DME: shower stool, hospital bed, hand held shower, nebulizer, pulse oximeter, O2 at 3l/min with portability, trilogy. Has a walker and w/c which pt only uses when leaving the home. Equipment is from [facility]: pt denies any previous providers. Plan: Pt plans to return home with resumption of hospice services through [facility]. Will continue to follow and assist with DC needs as identified. Raymundo Ravi RN CM
[2022-05-25] VITALS (22 sets, daily range): BP systolic 130–167; BP diastolic 62–79; PULSE 70–80; RESP 12–26; TEMP 36.1–37.1; O2SAT 94–98
[2022-05-25] MEDS: LORazepam 0.5 MG Tablet PO ×2 (01:25→23:20)
[2022-05-25] MEDS: Ipratropium/Albuterol Sulfate 3 ML AMPUL.NEB INHALATION ×7 (03:04→22:58)
[2022-05-25] MEDS: 0.9% Saline Lock 10 ML Syringe IV ×3 (06:48→23:11)
[2022-05-25 07:08] LABS: Absolute Lymphocyte Count 0.39 X10^3/uL (0.83-4.51); Absolute Neutrophil Count 8.4 X10^3/uL (2.0-7.7); Basophil# 0.01 X10^3/uL; Basophil% 0.1 % (0-1); Lymphocyte # 0.39 X10^3/ul (0.83-4.51); Lymphocyte % 4.2 % (19-41); Mean Corp Hgb Conc 30.2 g/dL (32-36); Mean Corpuscular Hgb 30.5 pg (27.0-32.0); Mean Corpuscular Volume 100.9 fL (81-99); Mean Platelet Vol. 11.4 fl (6.2-12.0); Monocyte# 0.56 X10^3/uL; NRBC Flagged by Analyzer 0 % (0-5); Neutrophil # 8.35 X10^3/uL (2.7-7.7); Neutrophil % 89.2 % (47-70); POSITIVE DIFFERENTIAL YES; Platelet Count 200 K/mm3 (150-450); RBC Distribution Width CV 14.3 % (11.6-14.6); RBC Distribution Width SD 52.8 fl (35.1-43.9); Red Blood Count 4.26 M/mm3 (4.2-5.4); White Blood Count 9.4 K/mm3 (4.4-11.0)
[2022-05-25 07:17] LABS: Differential Indicated SCAN CRITERIA MET
[2022-05-25 07:29] LABS: Anion Gap -1 (5-15); BUN 16 mg/dL (7-18); BUN/Creat Ratio 22.3 RATIO (10-20); Calcium,Total 9.1 mg/dL (8.5-10.1); Chloride 96 mmol/L (98-107); Creatinine, Serum 0.72 mg/dL (0.55-1.02); EST Glomerular Filtration Rate 85 mL/min (>60); Est Glom Filt Rate - Afr Amer 102 mL/min (>60); Estimated Creatinine Clearance 42.62 ml/min; Glucose 134 mg/dL (74-106); Potassium 4.9 mmol/L (3.5-5.1); Sodium Level 136 mmol/L (136-145)
[2022-05-25 08:25] LABS: Macrocytosis 1+; Platelet Estimate ADEQUATE (ADEQ)
[2022-05-25] MEDS: Folic Acid 1 MG Tablet PO (08:26)
[2022-05-25] MEDS: Oseltamivir Phosphate 30 MG Capsule PO ×2 (08:26→23:08)
[2022-05-25] MEDS: Thiamine Hydrochloride 100 MG Tablet PO (08:26)
[2022-05-25] MEDS: guaiFENesin 1,200 MG Tablet 1200 MG PO ×2 (08:26→23:08)
[2022-05-25] MEDS: Acetaminophen 325 MG Tablet 650 MG PO ×2 (08:26→23:20)
[2022-05-25] MEDS: Enoxaparin 40 MG/0.4 ML Syringe SC (08:26)
--- NOTE | 2022-05-25 12:00 | NURSING ---
Called both pharmacy's listed for patient, [facility] and [facility] and updated [facility] with what they had on file for patient.
--- NOTE | 2022-05-25 17:15 | PCM.PN.HOSP ---
Subjective Subjective Slowly feeling better but still continues to have shortness of breath and intermittent nausea, some cough last night. Does not like wearing the BiPAP. Because makes her claustrophobic and is hoping her family can bring her trilogy from home Objective Data Objective Data Vital Signs: Vital Signs Temp Pulse Resp BP Pulse Ox O2 Del Method O2 Flow Rate 97.9 F 79 22 H 130/62 H 96 Nasal Cannula 3 05/25/22 14:10 05/25/22 15:26 05/25/22 14:23 05/25/22 14:10 05/25/22 14:23 05/25/22 14:23 05/25/22 14:23 FiO2 35 05/25/22 03:29 Oxygen Flow Rate (L/min) 3 Oxygen Delivery Method Nasal Cannula Weight: 73.482 kg Body Mass Index (BMI) 27.8 Intake & Output: Intake and Output for Last 24 Hours 05/23/22 05/24/22 05/25/22 23:59 23:59 23:59 Intake Total 1360 / 1360 320 / 320 Output Total 250 / 1250 1500 / 1500 Balance 1110 / 110 -1180 / -1180 Lab / Micro Data Result Diagrams: 05/25/22 06:00 05/25/22 06:00 Labs: Laboratory Results - last 24 hr 05/25/22 06:00: WBC 9.4, RBC 4.26, Hgb 13.0, Hct 43.0, MCV 100.9 H, MCH 30.5, MCHC 30.2 L, RDW Std Deviation 52.8 H, RDW Coeff of Ermelinda 14.3, Plt Count 200, MPV 11.4, Immature Gran % (Auto) 0.500, Neut % (Auto) 89.2 H, Lymph % (Auto) 4.2 L, [place] % (Auto) 6.0, Eos % (Auto) 0.0, Baso % (Auto) 0.1, Absolute Neuts (auto) 8.4 H, Absolute Lymphs (auto) 0.39 L, Nucleated RBC % 0, Platelet Estimate ADEQUATE, Macrocytosis 1+ 05/25/22 06:00: Sodium 136, Potassium 4.9, Chloride 96 L, Carbon Dioxide 41.0 H, Anion Gap -1 L, BUN 16, Creatinine 0.72, Estim Creat Clear Calc 42.62, Est GFR (MDRD) Af Amer 102, Est GFR (MDRD) Non-Af 85, BUN/Creatinine Ratio 22.3 H, Glucose 134 H, Calcium 9.1 Micro: Microbiology 05/23/22 16:05 Nasal Secretion SARS-CoV-2 & FLU Antigen (Rapid) - Final Influenzae A Rhythm Strip Rhythm Strip: Sinus Rhythm Rate: 75 Ectopy: None Physical Exam Const alert and no apparent distress Constitutional Narrative: Oriented HEENT normocephalic and head/scalp atraumatic Eyes Eyes Narrative: EOM grossly intact, anicteric Neck supple Resp Resp Narrative: Increased work of breathing, diffuse wheezes Cardio regular rate and regular rhythm GI soft to palpation, non-tender and non-distended Extremity Extremity Narrative: No edema appreciated Neuro moves all extremities Neuro Narrative: No overt focal deficits appreciated Psych Psych Narrative: Cooperative Assessment & Plan Assessment/Plan (1) Acute respiratory failure with hypoxia and hypercapnia: (2) Influenza A: (3) Hyponatremia: PLAN: Plan This is 76-year-old female with history of COPD on 3 L of home oxygen admitted with 2 days worsening of shortness of breath/dyspnea more on exertion along with cough. 1. Acute hypercapnic and hypoxemic respiratory failure secondary to influenza A bronchitis: Chest x-rayshows bibasilar scarring but no acute abnormality. Tamiflu given the emergency department and continued. ABG showed 7.3 / on 5 L of oxygen nasal cannula. Bicarb 40 on BMP and therefore patient is chronic CO2 retainer. Influenza a was positive CBC showed normal white count. 05/25/2020: Continues to have increased work of breathing, BiPAP as needed continue nebs and methylprednisone as well as Tamiflu, Mucinex 2. COPD exacerbation due to influenza A bronchitis: Patient on bronchodilator DuoNeb scheduled, Solu-Medrol, Mucinex, incentive spirometry and BiPAP. #Alcohol use Reports she drinks anywhere from 2-6 times a week when she is out with friends and never mixes any of her hospice medications if she is going to drink, last drink on Friday, SRI HANIES at this time. Thiamine and folic acid Tobacco abuse Counseled Nicotine patch patient DVT prophylaxis: Subcutaneous Lovenox ordered Charges/Coding Visit Charges Inpatient E&M: 99365 Subs Hosp L2
[2022-05-25] MEDS: MELATONIN 3 MG TABLET PO (23:20)
[2022-05-26] VITALS (15 sets, daily range): BP systolic 150–165; BP diastolic 60–80; PULSE 61–92; RESP 12–24; TEMP 36.6–37.3; O2SAT 94–98
[2022-05-26] MEDS: Ipratropium/Albuterol Sulfate 3 ML AMPUL.NEB INHALATION ×6 (03:12→23:19)
[2022-05-26 05:08] LABS: Absolute Lymphocyte Count 0.33 X10^3/uL (0.83-4.51); Absolute Neutrophil Count 8.2 X10^3/uL (2.0-7.7); Basophil# 0.01 X10^3/uL; Basophil% 0.1 % (0-1); Hematocrit 41.7 % (37-47); Hemoglobin 13.3 g/dL (12.0-15.0); Lymphocyte # 0.33 X10^3/ul (0.83-4.51); Lymphocyte % 3.6 % (19-41); Mean Corp Hgb Conc 31.9 g/dL (32-36); Mean Corpuscular Hgb 30.9 pg (27.0-32.0); Monocyte# 0.48 X10^3/uL; Monocyte% 5.3 % (0-10); NRBC Flagged by Analyzer 0 % (0-5); Neutrophil % 90.2 % (47-70); POSITIVE DIFFERENTIAL YES; Platelet Count 259 K/mm3 (150-450); RBC Distribution Width CV 14.4 % (11.6-14.6); RBC Distribution Width SD 51.4 fl (35.1-43.9); White Blood Count 9.1 K/mm3 (4.4-11.0)
[2022-05-26 05:34] LABS: Differential Indicated SCAN CRITERIA MET
[2022-05-26 05:38] LABS: Anion Gap 3 (5-15); BUN 17 mg/dL (7-18); Chloride 99 mmol/L (98-107); Creatinine, Serum 0.59 mg/dL (0.55-1.02); EST Glomerular Filtration Rate 106 mL/min (>60); Est Glom Filt Rate - Afr Amer 129 mL/min (>60); Estimated Creatinine Clearance 42.62 ml/min; Glucose 130 mg/dL (74-106); Potassium 4.2 mmol/L (3.5-5.1); Sodium Level 138 mmol/L (136-145)
[2022-05-26] MEDS: 0.9% Saline Lock 10 ML Syringe IV ×3 (06:04→14:30)
[2022-05-26] MEDS: Thiamine Hydrochloride 100 MG Tablet PO (08:39)
[2022-05-26] MEDS: Folic Acid 1 MG Tablet PO (08:39)
[2022-05-26] MEDS: Ondansetron 4 MG/2 ML Vial IV ×2 (11:30→20:49)
[2022-05-26] MEDS: Enoxaparin 40 MG/0.4 ML Syringe SC (11:41)
[2022-05-26] MEDS: guaiFENesin 1,200 MG Tablet 1200 MG PO ×2 (12:50→20:51)
[2022-05-26] MEDS: Oseltamivir Phosphate 30 MG Capsule PO ×2 (12:51→20:52)
--- NOTE | 2022-05-26 15:57 | PN.HOSP_ITS ---
Subjective Subjective This morning reports feeling worse overall, still short of breath with some cough and has been feeling sick to her stomach with poor appetite. Did have bowel movement, no diarrhea, does have some upper abdominal pain, no vomiting. Requests a regular diet Objective Data Objective Data Vital Signs: Vital Signs Temp Pulse Resp BP Pulse Ox O2 Del Method O2 Flow Rate 98 F 73 20 H 165/73 H 95 Nasal Cannula 4 05/26/22 11:00 05/26/22 11:00 05/26/22 11:00 05/26/22 11:00 05/26/22 11:00 05/26/22 11:00 05/26/22 11:00 FiO2 30 05/26/22 05:10 Oxygen Flow Rate (L/min) 4 Oxygen Delivery Method Nasal Cannula Weight: 73.482 kg Body Mass Index (BMI) 27.8 Intake & Output: Intake and Output for Last 24 Hours 05/24/22 05/25/22 05/26/22 23:59 23:59 23:59 Intake Total 1360 / 1360 540 / 540 480 / 480 Output Total 250 / 1250 1900 / 2700 1400 / 1400 Balance 1110 / 110 -1360 / -2160 -920 / -920 Lab / Micro Data Result Diagrams: 05/26/22 04:50 05/26/22 04:50 Labs: Laboratory Results - last 24 hr 05/26/22 04:50: WBC 9.1, RBC 4.30, Hgb 13.3, Hct 41.7, MCV 97.0, MCH 30.9, MCHC 31.9 L D, RDW Std Deviation 51.4 H, RDW Coeff of Ermelinda 14.4, Plt Count 259, MPV 10.0, Immature Gran % (Auto) 0.800, Neut % (Auto) 90.2 H, Lymph % (Auto) 3.6 L, [place] % (Auto) 5.3, Eos % (Auto) 0.0, Baso % (Auto) 0.1, Absolute Neuts (auto) 8.2 H, Absolute Lymphs (auto) 0.33 L, Nucleated RBC % 0 05/26/22 04:50: Sodium 138, Potassium 4.2, Chloride 99, Carbon Dioxide 36.0 H, Anion Gap 3 L, BUN 17, Creatinine 0.59, Estim Creat Clear Calc 42.62, Est GFR (MDRD) Af Amer 129, Est GFR (MDRD) Non-Af 106, BUN/Creatinine Ratio 29.0 H, Glucose 130 H, Calcium 9.0 Micro: Microbiology 05/23/22 18:15 Blood Culture (Wb) - Left Hand Blood Culture - Preliminary No growth in 48 hours. 05/23/22 18:20 Blood Culture (Wb) - Left Wrist Blood Culture - Preliminary No growth in 48 hours. 05/23/22 16:05 Nasal Secretion SARS-CoV-2 & FLU Antigen (Rapid) - Final Influenzae A Rhythm Strip Rhythm Strip: Sinus Rhythm Rate: 75 Ectopy: None Physical Exam Const alert Constitutional Narrative: Oriented, appears more uncomfortable today HEENT normocephalic and head/scalp atraumatic Eyes Eyes Narrative: EOM grossly intact, anicteric Neck supple Resp Resp Narrative: Increased work of breathing, diffuse wheezes Cardio regular rate and regular rhythm GI soft to palpation and non-distended GI Narrative: Slight tenderness on deep palpation in epigastric region Extremity Extremity Narrative: No edema appreciated Neuro moves all extremities Neuro Narrative: No overt focal deficits appreciated Psych Psych Narrative: Cooperative Assessment & Plan Assessment/Plan (1) Acute respiratory failure with hypoxia and hypercapnia: (2) Influenza A: (3) Hyponatremia: PLAN: Plan This is 76-year-old female with history of COPD on 3 L of home oxygen admitted with 2 days worsening of shortness of breath/dyspnea more on exertion along with cough. #Acute hypercapnic and hypoxemic respiratory failure secondary to influenza A bronchitis: Chest x-rayshows bibasilar scarring but no acute abnormality. Tamiflu given the emergency department and continued. ABG showed 7.3 on 5 L of oxygen nasal cannula. Bicarb 40 on BMP and therefore patient is chronic CO2 retainer. Influenza a was positive CBC showed normal white count. 05/25/2020: Continues to have increased work of breathing, BiPAP as needed continue nebs and methylprednisone as well as Tamiflu, Mucinex 05/26/22: Reports subjective increasing shortness of breath, sats maintaining, BiPAP as needed, breathing treatments. Minimal cough. Still on Tamiflu. Is considering resuming hospice but wants to see how she does today. #Nausea May be due to not eating much because she does not like the cardiac diet, given long-term prognosis and current status will give regular diet Zofran as needed No diarrhea and did not report blood in her stool, hemoglobin stable If symptoms continue can consider further work-up Of note it does appear she has history of GERD and is not receiving her PPI, will resume There has been difficulty obtaining an accurate home medication list but seems she may have been on esomeprazole #COPD exacerbation due to influenza A bronchitis: See #1 #Alcohol use Reports she drinks anywhere from 2-6 times a week when she is out with friends and never mixes any of her hospice medications if she is going to drink, last drink on Friday, DC CATHYWA at this time. Thiamine and folic acid #Tobacco abuse Counseled Nicotine patch patient DVT prophylaxis: Subcutaneous Lovenox ordered Charges/Coding Visit Charges Inpatient E&M: 66919 Subs Hosp L2
[2022-05-26] MEDS: Acetaminophen 325 MG Tablet 650 MG PO ×2 (16:32→20:46)
[2022-05-26] MEDS: Pantoprazole Sodium 40 MG Tablet PO (16:34)
[2022-05-26] MEDS: LORazepam 0.5 MG Tablet PO (21:44)
[2022-05-26] MEDS: proCHLORPERazine 10 MG/2 ML Vial 5 MG IV (22:51)
[2022-05-27] VITALS (15 sets, daily range): BP systolic 156–165; BP diastolic 75–89; PULSE 63–86; RESP 14–32; TEMP 36.7–37.3; O2SAT 95–98
[2022-05-27] MEDS: Ipratropium/Albuterol Sulfate 3 ML AMPUL.NEB INHALATION ×5 (03:42→19:45)
[2022-05-27] MEDS: Acetaminophen 325 MG Tablet 650 MG PO ×4 (03:52→22:14)
[2022-05-27] MEDS: Ondansetron 4 MG/2 ML Vial IV ×3 (03:52→16:31)
--- NOTE | 2022-05-27 05:33 | CPS ---
Pt had family to bring in her trilogy. I hooked it up and bled in oxygen at 4L but pt was nauseated most of the night. But machine is set up and ready for pt use. V60 removed from pt room.
[2022-05-27 07:25] LABS: Absolute Lymphocyte Count 0.62 X10^3/uL (0.83-4.51); Absolute Neutrophil Count 9.8 X10^3/uL (2.0-7.7); Basophil# 0.01 X10^3/uL; Basophil% 0.1 % (0-1); Hemoglobin 14.5 g/dL (12.0-15.0); Lymphocyte # 0.62 X10^3/ul (0.83-4.51); Lymphocyte % 5.5 % (19-41); Mean Platelet Vol. 9.9 fl (6.2-12.0); Monocyte# 0.75 X10^3/uL; Monocyte% 6.7 % (0-10); NRBC Flagged by Analyzer 0 % (0-5); Neutrophil # 9.83 X10^3/uL (2.7-7.7); Neutrophil % 87.3 % (47-70); Platelet Count 256 K/mm3 (150-450); RBC Distribution Width CV 14.1 % (11.6-14.6); RBC Distribution Width SD 48.6 fl (35.1-43.9); Red Blood Count 4.68 M/mm3 (4.2-5.4); White Blood Count 11.3 K/mm3 (4.4-11.0)
[2022-05-27 07:55] LABS: Anion Gap 5 (5-15); BUN 17 mg/dL (7-18); BUN/Creat Ratio 27.2 RATIO (10-20); Calcium,Total 9.1 mg/dL (8.5-10.1); Chloride 95 mmol/L (98-107); Creatinine, Serum 0.62 mg/dL (0.55-1.02); EST Glomerular Filtration Rate 99 mL/min (>60); Est Glom Filt Rate - Afr Amer 120 mL/min (>60); Estimated Creatinine Clearance 42.62 ml/min; Glucose 110 mg/dL (74-106); Potassium 4.1 mmol/L (3.5-5.1); Sodium Level 133 mmol/L (136-145)
--- NOTE | 2022-05-27 10:05 | PN.HOSP_ITS ---
Subjective Subjective Breathing improving but continues to have nausea, Compazine was helpful but gave her the heebie-jeebies, poor appetite. Somewhat of a cough. Interested in being reevaluated by hospice for possible inpatient Objective Data Objective Data Vital Signs: Vital Signs Temp Pulse Resp BP Pulse Ox O2 Del Method O2 Flow Rate 99.2 F H 73 22 H 165/81 H 96 Nasal Cannula 4 05/27/22 14:31 05/27/22 14:40 05/27/22 14:40 05/27/22 14:31 05/27/22 14:39 05/27/22 14:45 05/27/22 14:45 FiO2 30 05/26/22 05:10 Oxygen Flow Rate (L/min) 4 Oxygen Delivery Method Nasal Cannula Weight: 73.5 kg Body Mass Index (BMI) 27.8 Intake & Output: Intake and Output for Last 24 Hours 05/25/22 05/26/22 05/27/22 23:59 23:59 23:59 Intake Total 540 / 540 780 / 780 890 / 890 Output Total 1900 / 2700 1600 / 1800 1500 / 1500 Balance -1360 / -2160 -820 / -1020 -610 / -610 Lab / Micro Data Result Diagrams: 05/27/22 07:12 05/27/22 07:12 Labs: Laboratory Results - last 24 hr 05/27/22 07:12: WBC 11.3 H, RBC 4.68, Hgb 14.5, Hct 44.0, MCV 94.0, MCH 31.0, MCHC 33.0, RDW Std Deviation 48.6 H, RDW Coeff of Ermelinda 14.1, Plt Count 256, MPV 9.9, Immature Gran % (Auto) 0.400, Neut % (Auto) 87.3 H, Lymph % (Auto) 5.5 L, [place] % (Auto) 6.7, Eos % (Auto) 0.0, Baso % (Auto) 0.1, Absolute Neuts (auto) 9.8 H, Absolute Lymphs (auto) 0.62 L, Nucleated RBC % 0 05/27/22 07:12: Sodium 133 L, Potassium 4.1, Chloride 95 L, Carbon Dioxide 33.0 H, Anion Gap 5, BUN 17, Creatinine 0.62, Estim Creat Clear Calc 42.62, Est GFR (MDRD) Af Amer 120, Est GFR (MDRD) Non-Af 99, BUN/Creatinine Ratio 27.2 H, Glucose 110 H, Calcium 9.1 05/27/22 12:03: POC Glucose 159 H Micro: Microbiology 05/23/22 18:15 Blood Culture (Wb) - Left Hand Blood Culture - Preliminary No growth in 48 hours. 05/23/22 18:20 Blood Culture (Wb) - Left Wrist Blood Culture - Preliminary No growth in 48 hours. 05/23/22 16:05 Nasal Secretion SARS-CoV-2 & FLU Antigen (Rapid) - Final Influenzae A Rhythm Strip Rhythm Strip: Sinus Rhythm Rate: 75 Ectopy: None Physical Exam Const alert Constitutional Narrative: Oriented HEENT normocephalic and head/scalp atraumatic Eyes Eyes Narrative: EOM grossly intact, anicteric Neck supple Resp Resp Narrative: Work of breathing slightly improved compared to yesterday, diffuse wheezes Cardio regular rate and regular rhythm GI soft to palpation and non-distended GI Narrative: Slight tenderness on deep palpation in epigastric region Extremity Extremity Narrative: No edema appreciated Neuro moves all extremities Neuro Narrative: No overt focal deficits appreciated Psych Psych Narrative: Cooperative Assessment & Plan Assessment/Plan (1) Acute respiratory failure with hypoxia and hypercapnia: (2) Influenza A: (3) Hyponatremia: PLAN: Plan This is 76-year-old female with history of COPD on 3 L of home oxygen admitted with 2 days worsening of shortness of breath/dyspnea more on exertion along with cough. #Acute hypercapnic and hypoxemic respiratory failure secondary to influenza A bronchitis: Chest x-rayshows bibasilar scarring but no acute abnormality. Tamiflu given the emergency department and continued. ABG showed 7.3 / on 5 L of oxygen nasal cannula. Bicarb 40 on BMP and therefore patient is chronic CO2 retainer. Influenza a was positive CBC showed normal white count. 05/25/2020: Continues to have increased work of breathing, BiPAP as needed continue nebs and methylprednisone as well as Tamiflu, Mucinex 05/26/22: Reports subjective increasing shortness of breath, sats maintaining, BiPAP as needed, breathing treatments. Minimal cough. Still on Tamiflu. Is considering resuming hospice but wants to see how she does today. 05/27: Is doing better from a respiratory standpoint, hospice to evaluate tomorrow morning #Nausea May be due to not eating much because she does not like the cardiac diet, given long-term prognosis and current status will give regular diet Zofran as needed No diarrhea and did not report blood in her stool, hemoglobin stable If symptoms continue can consider further work-up Of note it does appear she has history of GERD and is not receiving her PPI, will resume There has been difficulty obtaining an accurate home medication list but seems she may have been on esomeprazole 05/27: Still intermittently with some nausea, Zofran, will try dose of Phenergan #COPD exacerbation due to influenza A bronchitis: See #1 #Alcohol use Reports she drinks anywhere from 2-6 times a week when she is out with friends and never mixes any of her hospice medications if she is going to drink, last drink on Friday, SRI HAINES at this time. Thiamine and folic acid #Tobacco abuse Counseled Nicotine patch patient DVT prophylaxis: Subcutaneous Lovenox ordered Charges/Coding Visit Charges Inpatient E&M: 29489 Subs Hosp L2
[2022-05-27] MEDS: 0.9% Saline Lock 10 ML Syringe IV ×2 (10:32→16:33)
[2022-05-27] MEDS: proMETHazine 25 MG Tablet 12.5 MG PO (11:15)
[2022-05-27] MEDS: Folic Acid 1 MG Tablet PO (11:46)
[2022-05-27] MEDS: Polyethylene Glycol 3350 17 GM PACKET PO (11:46)
[2022-05-27] MEDS: guaiFENesin 1,200 MG Tablet 1200 MG PO ×2 (11:46→22:14)
[2022-05-27] MEDS: Thiamine Hydrochloride 100 MG Tablet PO (11:46)
[2022-05-27] MEDS: Oseltamivir Phosphate 30 MG Capsule PO ×2 (11:47→22:14)
[2022-05-27] MEDS: Pantoprazole Sodium 40 MG Tablet PO (11:51)
[2022-05-27 12:25] LABS: Bedside Glucose 159 mg/dL (74-106)
[2022-05-27] MEDS: DiphenhydrAMINE 25 MG Capsule PO (13:42)
[2022-05-27] MEDS: MELATONIN 3 MG TABLET PO (22:14)
[2022-05-27] MEDS: LORazepam 0.5 MG Tablet PO (22:15)
[2022-05-28] VITALS (15 sets, daily range): BP systolic 121–152; BP diastolic 72–90; PULSE 68–94; RESP 16–20; TEMP 36.3–37.1; O2SAT 92–97
[2022-05-28 05:10] LABS: Absolute Lymphocyte Count 0.39 X10^3/uL (0.83-4.51); Absolute Neutrophil Count 9.7 X10^3/uL (2.0-7.7); Basophil# 0.01 X10^3/uL; Basophil% 0.1 % (0-1); Hematocrit 45.1 % (37-47); Hemoglobin 15.1 g/dL (12.0-15.0); Lymphocyte # 0.39 X10^3/ul (0.83-4.51); Lymphocyte % 3.7 % (19-41); Mean Corp Hgb Conc 33.5 g/dL (32-36); Mean Corpuscular Hgb 31.1 pg (27.0-32.0); Mean Platelet Vol. 10.3 fl (6.2-12.0); Monocyte# 0.35 X10^3/uL; Monocyte% 3.3 % (0-10); NRBC Flagged by Analyzer 0 % (0-5); Neutrophil # 9.67 X10^3/uL (2.7-7.7); Neutrophil % 92.3 % (47-70); POSITIVE DIFFERENTIAL YES; Platelet Count 267 K/mm3 (150-450); RBC Distribution Width CV 13.9 % (11.6-14.6); Red Blood Count 4.85 M/mm3 (4.2-5.4); White Blood Count 10.5 K/mm3 (4.4-11.0)
[2022-05-28 05:13] LABS: Differential Indicated SCAN CRITERIA MET
[2022-05-28 05:47] LABS: ALB/GLOB Ratio 0.9 RATIO (0.9-2.4); AST(SGOT) 13 U/L (15-37); Alanine Aminotransfer ALT/SGPT 19 U/L (13-56); Albumin, Serum 3.3 g/dL (3.2-5.0); Alkaline Phosphatase 55 U/L (45-117); Anion Gap 5 (5-15); BUN 17 mg/dL (7-18); BUN/Creat Ratio 24.1 RATIO (10-20); Calcium,Total 8.9 mg/dL (8.5-10.1); Chloride 91 mmol/L (98-107); EST Glomerular Filtration Rate 86 mL/min (>60); Est Glom Filt Rate - Afr Amer 104 mL/min (>60); Estimated Creatinine Clearance 42.62 ml/min; Globulin 3.6 g/dL (2.2-4.2); Glucose 104 mg/dL (74-106); Potassium 4.5 mmol/L (3.5-5.1); Protein, Total 6.9 g/dL (6.4-8.2); Sodium Level 129 mmol/L (136-145)
[2022-05-28] MEDS: Ipratropium/Albuterol Sulfate 3 ML AMPUL.NEB INHALATION ×5 (07:02→22:59)
--- NOTE | 2022-05-28 08:50 | CASEMGMT ---
SW received a call from Sherine with [facility]. Patient was going to go to the inpatient Hospice unit, but now wants rehab to get stronger. PRICE spoke with charge authorizer and she confirmed plan was the inpatient Hospice unit, but because patient is on trilogy and has flu they cannot take her in the inpatient unit so they suggested she go to a fpc. PRICE ordered PT/OT for patient as she will need insurance authorization for SNF. Bridgett ZIEGLER
[2022-05-28] MEDS: Folic Acid 1 MG Tablet PO (10:01)
[2022-05-28] MEDS: Acetaminophen 325 MG Tablet 650 MG PO (10:01)
[2022-05-28] MEDS: Ondansetron 4 MG/2 ML Vial IV ×2 (10:01→16:12)
[2022-05-28] MEDS: 0.9% Saline Lock 10 ML Syringe IV ×3 (10:01→22:15)
[2022-05-28] MEDS: Thiamine Hydrochloride 100 MG Tablet PO (10:02)
[2022-05-28] MEDS: Enoxaparin 40 MG/0.4 ML Syringe SC (10:02)
[2022-05-28] MEDS: Oseltamivir Phosphate 30 MG Capsule PO (10:03)
[2022-05-28] MEDS: Pantoprazole Sodium 40 MG Tablet PO (10:08)
--- NOTE | 2022-05-28 10:22 | CASEMGMT ---
Discharge Protection Officer This newswriter sent a referral via [facility] to [facility]. Chris FIERRO Dot Etcher Apprentice
--- NOTE | 2022-05-28 10:26 | CASEMGMT ---
SW spoke with patient and she confirmed she needs to go to a [place] [facility] [place] for [place]hab. SW provided a list of fpc facility providers including quality and resource use data and consistent with patient?s preferred geographic region, medical needs, and insurance network were provided from the [facility] Guide. Patient was overwhelmed with picking a place and asked SW to call her son Seamus. SW called patient's son Seamus. Introduced self and role at [facility]. SW explained that patient is a little overwhelmed with making a decision on where to go. He was overwhelmed as well and wasn't sure what to do. SW assisted him by trying to determine which city he would prefer. He did not want [place] as he does not like any of those facilities. He was okay with anywhere in [place] or [place]. He then specifically mentioned [facility]. SW let Seamus know patient also mentioned [facility] so SW can start there. SW explained that we will have to wait on a facility to accept her and then we will have to wait on insurance to approve her. SW explained patient will stay in [facility] until insurance approves her. SW spoke with patient and let her know what Seamus said and she would like [facility] to be her first choice and then [place]. SW let her know SW will work on referrals. SW asked Thao d/c capacity planning engineer to please make referrals. Patient has a Trilogy machine. PRICE called Coco at Hospice and she said patient does have a Trilogy machine, but it is hers. Hospice is not renting the machine for her. SW notified Thao to pass this information along to the SNFS. Bridgett ZIEGLER
--- NOTE | 2022-05-28 12:39 | CASEMGMT ---
Discharge Ripper Operator [facility] has not bed available at this time. This pattern chart writer sent referral to [facility] via [facility]. Chris FIERRO Allergist Immunologist
--- NOTE | 2022-05-28 14:30 | CASEMGMT ---
SW went back to patient's room and let her know that we are still waiting on [facility]. Patient spoke with her friend and her next 3 choices would be [facility], [facility], and [facility]. PRICE let patient know SW will continue to work on referrals. Plan: SNF pending accepting facility and insurance approval. Bridgett ZIEGLER
--- NOTE | 2022-05-28 14:55 | CCN.REFER ---
Addendum entered by Thao Hoffman 05/28/22 15:53: [facility] has no beds. Sent referral to [facility]. Chris FIERRO Dietary Supervisor Original Note: Discharge Charge Machine Operator This principal technical writer sent referral to [facility] via [facility]. Chris FIERRO Dietary Supervisor
--- NOTE | 2022-05-28 15:30 | CASEMGMT ---
PRICE called patient's son Seamus and updated him letting him know [facility] is not able to take patient. PRICE told Seamus that [facility] was her next choice then [facility]. PRICE let Seamus know we will let him know when we have a place. He asked about transport and SW told him as long as he has an O2 tank he should be able to transport her. Plan: SNF pending accepting facility and insurance approval. Bridgett ZIEGLER
--- NOTE | 2022-05-28 16:01 | PCM.PN.HOSP ---
Subjective Subjective Still short of breath and intermittently sick to her stomach but shortness of breath is improving and nausea is more intermittent now Objective Data Objective Data Vital Signs: Vital Signs Temp Pulse Resp BP Pulse Ox O2 Del Method O2 Flow Rate 98.2 F 73 20 H 121/72 H 92 Nasal Cannula 3 05/28/22 10:00 05/28/22 15:00 05/28/22 10:50 05/28/22 10:00 05/28/22 14:20 05/28/22 14:20 05/28/22 14:20 FiO2 30 05/26/22 05:10 Oxygen Flow Rate (L/min) 3 Oxygen Delivery Method Nasal Cannula Weight: 73.5 kg Body Mass Index (BMI) 27.8 Intake & Output: Intake and Output for Last 24 Hours 05/26/22 05/27/22 05/28/22 23:59 23:59 23:59 Intake Total 780 / 780 890 / 890 Output Total 1600 / 1800 1600 / 1600 100 / 100 Balance -820 / -1020 -710 / -710 -100 / -100 Lab / Micro Data Result Diagrams: 05/28/22 04:16 05/28/22 04:16 Labs: Laboratory Results - last 24 hr 05/28/22 04:16: WBC 10.5, RBC 4.85, Hgb 15.1 H, Hct 45.1, MCV 93.0, MCH 31.1, MCHC 33.5, RDW Std Deviation 47.0 H, RDW Coeff of Ermelinda 13.9, Plt Count 267, MPV 10.3, Immature Gran % (Auto) 0.600, Neut % (Auto) 92.3 H, Lymph % (Auto) 3.7 L, [place] % (Auto) 3.3, Eos % (Auto) 0.0, Baso % (Auto) 0.1, Absolute Neuts (auto) 9.7 H, Absolute Lymphs (auto) 0.39 L, Nucleated RBC % 0 05/28/22 04:16: Sodium 129 L, Potassium 4.5, Chloride 91 L, Carbon Dioxide 33.0 H, Anion Gap 5, BUN 17, Creatinine 0.70, Estim Creat Clear Calc 42.62, Est GFR (MDRD) Af Amer 104, Est GFR (MDRD) Non-Af 86, BUN/Creatinine Ratio 24.1 H, Glucose 104, Calcium 8.9, Total Bilirubin 1.00, AST 13 L, ALT 19, Alkaline Phosphatase 55, Total Protein 6.9, Albumin 3.3, Globulin 3.6, Albumin/Globulin Ratio 0.9 Micro: Microbiology 05/23/22 18:15 Blood Culture (Wb) - Left Hand Blood Culture - Preliminary No growth in 48 hours. 05/23/22 18:20 Blood Culture (Wb) - Left Wrist Blood Culture - Preliminary No growth in 48 hours. 05/23/22 16:05 Nasal Secretion SARS-CoV-2 & FLU Antigen (Rapid) - Final Influenzae A Rhythm Strip Rhythm Strip: Sinus Rhythm Rate: 75 Ectopy: None Physical Exam Const alert Constitutional Narrative: Oriented HEENT normocephalic and head/scalp atraumatic Eyes Eyes Narrative: EOM grossly intact, anicteric Neck supple Resp Resp Narrative: Diffuse wheezes Cardio regular rate and regular rhythm GI soft to palpation and non-distended GI Narrative: Slight tenderness on deep palpation in epigastric region Extremity Extremity Narrative: No edema appreciated Neuro moves all extremities Neuro Narrative: No overt focal deficits appreciated Psych Psych Narrative: Cooperative Assessment & Plan Assessment/Plan (1) Acute respiratory failure with hypoxia and hypercapnia: (2) Influenza A: (3) Hyponatremia: PLAN: Plan This is 76-year-old female with history of COPD on 3 L of home oxygen admitted with 2 days worsening of shortness of breath/dyspnea more on exertion along with cough. #Acute hypercapnic and hypoxemic respiratory failure secondary to influenza A bronchitis: Chest x-rayshows bibasilar scarring but no acute abnormality. Tamiflu given the emergency department and continued. ABG showed 7.3 on 5 L of oxygen nasal cannula. Bicarb 40 on BMP and therefore patient is chronic CO2 retainer. Influenza a was positive CBC showed normal white count. 05/25/2020: Continues to have increased work of breathing, BiPAP as needed continue nebs and methylprednisone as well as Tamiflu, Mucinex 05/26/22: Reports subjective increasing shortness of breath, sats maintaining, BiPAP as needed, breathing treatments. Minimal cough. Still on Tamiflu. Is considering resuming hospice but wants to see how she does today. 05/27: Is doing better from a respiratory standpoint, hospice to evaluate tomorrow morning 05/28: We will work on SNF placement, doing much better from respiratory standpoint #Nausea May be due to not eating much because she does not like the cardiac diet, given long-term prognosis and current status will give regular diet Zofran as needed No diarrhea and did not report blood in her stool, hemoglobin stable If symptoms continue can consider further work-up Of note it does appear she has history of GERD and is not receiving her PPI, will resume There has been difficulty obtaining an accurate home medication list but seems she may have been on esomeprazole 05/27: Still intermittently with some nausea, Zofran, will try dose of Phenergan 05/28: Slightly improved #COPD exacerbation due to influenza A bronchitis: See #1 #Alcohol use Reports she drinks anywhere from 2-6 times a week when she is out with friends and never mixes any of her hospice medications if she is going to drink, last drink on Friday, DC ZAKI at this time. Thiamine and folic acid #Tobacco abuse Counseled Nicotine patch patient DVT prophylaxis: Subcutaneous Lovenox ordered Charges/Coding Visit Charges Inpatient E&M: 40595 Subs Hosp L2
[2022-05-28] MEDS: LORazepam 0.5 MG Tablet PO (20:08)
[2022-05-28] MEDS: MELATONIN 3 MG TABLET PO (22:22)
[2022-05-29] VITALS (23 sets, daily range): BP systolic 124–145; BP diastolic 74–92; PULSE 72–99; RESP 18–24; TEMP 36.3–37.1; O2SAT 92–96
--- NOTE | 2022-05-29 00:33 | CPS ---
Pt has a trilogy at bedside. It is set up ready to use and in pt reach.
[2022-05-29] MEDS: Ipratropium/Albuterol Sulfate 3 ML AMPUL.NEB INHALATION ×6 (03:45→23:11)
--- NOTE | 2022-05-29 05:19 | CPS ---
Pt used her trilogy 1-2 hours tonight. Thats all she could sleep.
[2022-05-29 08:36] LABS: Absolute Lymphocyte Count 0.59 X10^3/uL (0.83-4.51); Absolute Neutrophil Count 9.8 X10^3/uL (2.0-7.7); Basophil# 0.01 X10^3/uL; Basophil% 0.1 % (0-1); Hematocrit 45.5 % (37-47); Hemoglobin 15.3 g/dL (12.0-15.0); Lymphocyte # 0.59 X10^3/ul (0.83-4.51); Lymphocyte % 5.2 % (19-41); Mean Corp Hgb Conc 33.6 g/dL (32-36); Mean Corpuscular Hgb 30.9 pg (27.0-32.0); Mean Corpuscular Volume 91.9 fL (81-99); Monocyte# 0.75 X10^3/uL; Monocyte% 6.7 % (0-10); NRBC Flagged by Analyzer 0 % (0-5); Neutrophil # 9.79 X10^3/uL (2.7-7.7); POSITIVE DIFFERENTIAL YES; Platelet Count 245 K/mm3 (150-450); RBC Distribution Width CV 13.8 % (11.6-14.6); RBC Distribution Width SD 46.6 fl (35.1-43.9); Red Blood Count 4.95 M/mm3 (4.2-5.4); White Blood Count 11.3 K/mm3 (4.4-11.0)
--- NOTE | 2022-05-29 08:36 | NURSING ---
Emergency Documentation 05/29/2022 0700
[2022-05-29 08:45] LABS: Differential Indicated SCAN CRITERIA MET
[2022-05-29] MEDS: Enoxaparin 40 MG/0.4 ML Syringe SC (08:49)
[2022-05-29] MEDS: 0.9% Saline Lock 10 ML Syringe IV (08:50)
[2022-05-29] MEDS: Pantoprazole Sodium 40 MG Tablet PO (08:50)
[2022-05-29] MEDS: Folic Acid 1 MG Tablet PO (08:50)
[2022-05-29] MEDS: Thiamine Hydrochloride 100 MG Tablet PO (08:50)
[2022-05-29 08:55] LABS: ALB/GLOB Ratio 0.9 RATIO (0.9-2.4); AST(SGOT) 8 U/L (15-37); Alanine Aminotransfer ALT/SGPT 16 U/L (13-56); Albumin, Serum 3.3 g/dL (3.2-5.0); Alkaline Phosphatase 57 U/L (45-117); Anion Gap 7 (5-15); BUN 19 mg/dL (7-18); BUN/Creat Ratio 27.8 RATIO (10-20); Calcium,Total 9.1 mg/dL (8.5-10.1); Chloride 90 mmol/L (98-107); Creatinine, Serum 0.68 mg/dL (0.55-1.02); EST Glomerular Filtration Rate 89 mL/min (>60); Est Glom Filt Rate - Afr Amer 108 mL/min (>60); Estimated Creatinine Clearance 42.62 ml/min; Globulin 3.5 g/dL (2.2-4.2); Glucose 111 mg/dL (74-106); Potassium 4.5 mmol/L (3.5-5.1); Protein, Total 6.8 g/dL (6.4-8.2); Sodium Level 129 mmol/L (136-145)
[2022-05-29] MEDS: Ensure Clear 120 ML Liquid PO ×3 (08:56→16:15)
--- NOTE | 2022-05-29 09:13 | CASEMGMT ---
Discharge Buckle Wire Inserter [facility] does not have a bed at the moment but they will be having discharges. This repairer typewriter called K[facility] and left a message. This repairer typewriter is also sending a referral to [facility]. Chris FIERRO Cloth Finisher
--- NOTE | 2022-05-29 09:36 | CASEMGMT ---
Discharge Supervisor Stage Carpentry [facility] is not accepting patient insurance at this moment. Referral still being reviewed at [facility]. Chris FIERRO Life Skills Specialist
[2022-05-29 10:05] LABS: Differential Comment SCANNED
--- NOTE | 2022-05-29 11:23 | CASEMGMT ---
Discharge Steam Frame Operator [facility] accepted patient. Pre-cert is being started. Chris FIERRO Engraver Picture
--- NOTE | 2022-05-29 11:28 | CASEMGMT ---
Social Work Telephone call from patient son, Seamus. This social media editor updated Seamus that patient has been accepted to [facility] and is pending pre-cert. Seamus is agreeable to this and then notes that if something does not work out with [facility] that another option would be [facility]. Will continue to follow. Iliana oMrocho MSW, JINA
--- NOTE | 2022-05-29 12:05 | CASEMGMT ---
Discharge Brewmaster Pre-cert has been obtained for tomorrow. 05/30/2022. Patient can go to [facility] if medically ready tomorrow. PRICE Ash notified. Chris FIERRO Voyage Management System Operator
--- NOTE | 2022-05-29 12:17 | CASEMGMT ---
Social Work Notified by discharge transit planning manager, Thao that pre-cert has been obtained for patient to discharge to the [facility] tomorrow. Telephone call to patient son, Seamus. No answer. No voicemail set up. Medical team updated. Plan is for patient to discharge to the [facility] tomorrow. This neonatal social worker updated patient on above information. Patient prefers to be transported via wheelchair van versus family. Proposed discharge date: 05/30/2022 PLAN: safia Rizzo, JINA
[2022-05-29] MEDS: Acetaminophen 325 MG Tablet 650 MG PO (13:51)
--- NOTE | 2022-05-29 15:12 | PN.HOSP_ITS ---
Subjective Subjective Still continues to feel generally not well but breathing is better than it was, still intermittently nauseous. Objective Data Objective Data Vital Signs: Vital Signs Temp Pulse Resp BP Pulse Ox O2 Del Method O2 Flow Rate 98.0 F 79 18 124/77 H 93 Nasal Cannula 2 05/29/22 12:50 05/29/22 12:50 05/29/22 12:50 05/29/22 12:50 05/29/22 13:51 05/29/22 13:51 05/29/22 13:51 FiO2 95 05/29/22 08:45 Oxygen Flow Rate (L/min) 2 Oxygen Delivery Method Nasal Cannula Weight: 73.5 kg Body Mass Index (BMI) 27.8 Intake & Output: Intake and Output for Last 24 Hours 05/27/22 05/28/22 05/29/22 23:59 23:59 23:59 Intake Total 890 / 890 680 / 680 240 / 240 Output Total 1600 / 1600 100 / 500 600 / 600 Balance -710 / -710 580 / 180 -360 / -360 Lab / Micro Data Result Diagrams: 05/29/22 07:25 05/29/22 07:25 Labs: Laboratory Results - last 24 hr 05/29/22 07:25: WBC 11.3 H, RBC 4.95, Hgb 15.3 H, Hct 45.5, MCV 91.9, MCH 30.9, MCHC 33.6, RDW Std Deviation 46.6 H, RDW Coeff of Ermelinda 13.8, Plt Count 245, MPV 11.0, Immature Gran % (Auto) 1.000 H, Neut % (Auto) 87.0 H, Lymph % (Auto) 5.2 L , [place] % (Auto) 6.7, Eos % (Auto) 0.0, Baso % (Auto) 0.1, Absolute Neuts (auto) 9.8 H, Absolute Lymphs (auto) 0.59 L, Nucleated RBC % 0, Differential Comment SCANNED 05/29/22 07:25: Sodium 129 L, Potassium 4.5, Chloride 90 L, Carbon Dioxide 32.0, Anion Gap 7, BUN 19 H, Creatinine 0.68, Estim Creat Clear Calc 42.62, Est GFR (MDRD) Af Amer 108, Est GFR (MDRD) Non-Af 89, BUN/Creatinine Ratio 27.8 H, Glucose 111 H, Calcium 9.1, Total Bilirubin 1.00, AST 8 L, ALT 16, Alkaline Phosphatase 57, Total Protein 6.8, Albumin 3.3, Globulin 3.5, Albumin/Globulin Ratio 0.9 Micro: Microbiology 05/23/22 18:15 Blood Culture (Wb) - Left Hand Blood Culture - Final No growth in 5 days. 05/23/22 18:20 Blood Culture (Wb) - Left Wrist Blood Culture - Final No growth in 5 days. 05/23/22 16:05 Nasal Secretion SARS-CoV-2 & FLU Antigen (Rapid) - Final Influenzae A Rhythm Strip Rhythm Strip: Sinus Rhythm Rate: 75 Ectopy: None Physical Exam Const alert Constitutional Narrative: Oriented HEENT normocephalic and head/scalp atraumatic Eyes Eyes Narrative: EOM grossly intact, anicteric Neck supple Resp Resp Narrative: Work of breathing and wheezes improving Cardio regular rate and regular rhythm GI soft to palpation and non-distended GI Narrative: Slight tenderness on deep palpation in epigastric region Extremity Extremity Narrative: No edema appreciated Neuro moves all extremities Neuro Narrative: No overt focal deficits appreciated Psych Psych Narrative: Cooperative Assessment & Plan Assessment/Plan (1) Acute respiratory failure with hypoxia and hypercapnia: (2) Influenza A: (3) Hyponatremia: PLAN: Plan This is 76-year-old female with history of COPD on 3 L of home oxygen admitted with 2 days worsening of shortness of breath/dyspnea more on exertion along with cough. #Acute hypercapnic and hypoxemic respiratory failure secondary to influenza A bronchitis: Chest x-rayshows bibasilar scarring but no acute abnormality. Tamiflu given the emergency department and continued. ABG showed 7.3 on 5 L of oxygen nasal cannula. Bicarb 40 on BMP and therefore patient is chronic CO2 retainer. Influenza a was positive CBC showed normal white count. 05/25/2020: Continues to have increased work of breathing, BiPAP as needed continue nebs and methylprednisone as well as Tamiflu, Mucinex 05/26/22: Reports subjective increasing shortness of breath, sats maintaining, BiPAP as needed, breathing treatments. Minimal cough. Still on Tamiflu. Is considering resuming hospice but wants to see how she does today. 05/27: Is doing better from a respiratory standpoint, hospice to evaluate tomorrow morning 05/28: We will work on SNF placement, doing much better from respiratory standpoint 05/29: Awaiting SNF placement #Nausea May be due to not eating much because she does not like the cardiac diet, given long-term prognosis and current status will give regular diet Zofran as needed No diarrhea and did not report blood in her stool, hemoglobin stable If symptoms continue can consider further work-up Of note it does appear she has history of GERD and is not receiving her PPI, will resume There has been difficulty obtaining an accurate home medication list but seems she may have been on esomeprazole 05/27: Still intermittently with some nausea, Zofran, will try dose of Phenergan 05/28: Slightly improved #COPD exacerbation due to influenza A bronchitis: See #1 #Alcohol use Reports she drinks anywhere from 2-6 times a week when she is out with friends and never mixes any of her hospice medications if she is going to drink, last drink on Friday, SRI HAINES at this time. Thiamine and folic acid #Tobacco abuse Counseled Nicotine patch patient DVT prophylaxis: Subcutaneous Lovenox ordered Charges/Coding Visit Charges Inpatient E&M: 69706 Subs Hosp L2
--- NOTE | 2022-05-29 19:00 | NURSING ---
Emergency Documentation at 1900 on 05/29/22
--- NOTE | 2022-05-29 19:00 | PCA ---
EMERGENCY DOCUMENTATION
[2022-05-29] MEDS: LORazepam 1 MG Tablet PO (22:52)
[2022-05-29] MEDS: MELATONIN 3 MG TABLET PO (22:52)
--- NOTE | 2022-05-29 23:13 | CPS ---
Pt has own trilogy at bedside ready for pt use with 3L bleed in
[2022-05-30] VITALS (15 sets, daily range): BP systolic 102–140; BP diastolic 66–100; PULSE 79–114; RESP 16–20; TEMP 36.4–36.8; O2SAT 93–96
[2022-05-30] MEDS: Ipratropium/Albuterol Sulfate 3 ML AMPUL.NEB INHALATION ×5 (03:55→19:04)
[2022-05-30 07:21] LABS: Absolute Lymphocyte Count 1.18 X10^3/uL (0.83-4.51); Absolute Neutrophil Count 8.8 X10^3/uL (2.0-7.7); Basophil# 0.02 X10^3/uL; Basophil% 0.2 % (0-1); Eosinophil# 0.05 X10^3/uL; Eosinophils% 0.4 % (0-5); Hematocrit 44.8 % (37-47); Hemoglobin 15.5 g/dL (12.0-15.0); Lymphocyte # 1.18 X10^3/ul (0.83-4.51); Lymphocyte % 10.5 % (19-41); Mean Corp Hgb Conc 34.6 g/dL (32-36); Mean Corpuscular Hgb 31.7 pg (27.0-32.0); Mean Corpuscular Volume 91.6 fL (81-99); Mean Platelet Vol. 10.2 fl (6.2-12.0); Monocyte# 0.98 X10^3/uL; Monocyte% 8.7 % (0-10); NRBC Flagged by Analyzer 0 % (0-5); Neutrophil # 8.78 X10^3/uL (2.7-7.7); Neutrophil % 78.1 % (47-70); Platelet Count 236 K/mm3 (150-450); Red Blood Count 4.89 M/mm3 (4.2-5.4); White Blood Count 11.3 K/mm3 (4.4-11.0)
[2022-05-30 07:40] LABS: Anion Gap 6 (5-15); BUN 17 mg/dL (7-18); BUN/Creat Ratio 26.4 RATIO (10-20); Calcium,Total 8.6 mg/dL (8.5-10.1); Chloride 93 mmol/L (98-107); Creatinine, Serum 0.64 mg/dL (0.55-1.02); EST Glomerular Filtration Rate 96 mL/min (>60); Est Glom Filt Rate - Afr Amer 116 mL/min (>60); Estimated Creatinine Clearance 42.62 ml/min; Glucose 91 mg/dL (74-106); Potassium 3.5 mmol/L (3.5-5.1); Sodium Level 130 mmol/L (136-145)
[2022-05-30] MEDS: Ensure Clear 120 ML Liquid PO ×3 (07:52→16:01)
[2022-05-30] MEDS: Pantoprazole Sodium 40 MG Tablet PO (08:47)
[2022-05-30] MEDS: predniSONE 20 MG Tablet 40 MG PO (08:47)
[2022-05-30] MEDS: Folic Acid 1 MG Tablet PO (08:47)
[2022-05-30] MEDS: Thiamine Hydrochloride 100 MG Tablet PO (08:48)
--- NOTE | 2022-05-30 15:28 | PCM.TXEXTCAR ---
Diet Diet Order/Speech Therapy: 05/26/22 13:51 Diet: Regular - General Is pt able to select menu?: No Routine Orders/Code Status Suppository Type: Dulcolax 10mg Suppository Frequency: Daily PRN O2 Liters per Minute: 3 O2 Frequency: Continuous Keep PO Greater than or Equal to (%): 92 Code Status: DNRCC-A (With intubation) Therapies Physical Therapy: Eval and Treat Occupational Therapy: Eval and Treat Speech Therapy: Eval and Treat Problem/Diagnosis (1) Acute respiratory failure with hypoxia and hypercapnia: Status: Acute Code(s): J96.01 - Acute respiratory failure with hypoxia; J96.02 - Acute respiratory failure with hypercapnia (2) Influenza A: Status: Acute Code(s): J10.1 - Influenza due to other identified influenza virus with other respiratory manifestations (3) Hyponatremia: Status: Acute Code(s): E87.1 - Hypo-osmolality and hyponatremia Plan #Acute hypercapnic and hypoxemic respiratory failure secondary to influenza A bronchitis: Chest x-ray shows bibasilar scarring but no acute abnormality. #Nausea #COPD exacerbation due to influenza A bronchitis #Tobacco abuse 76-year-old female with a history of COPD on 3 L of home O2 baseline, CHF, breast cancer, hypothyroidism, tobacco use who presented to [facility] 05/23/2022 with 2 days of worsening shortness of breath. She was admitted for acute exacerbation of COPD and was found to have influenza A. She was given nebs and steroids as well as Tamiflu. Was frequently dependent on BiPAP initially but breathing improved over time. She did develop nausea after several days for unclear reasons but possibly given her influenza and was getting IV antiemetics. Slowly began to improve. Stable for transfer to skilled facility. Allergies/Procedures Done in Hospital Allergies prochlorperazine [From Compazine] Adverse Reaction (Mild, Verified 05/27/22 03:38) Other creepy crawlies on her body Type of Care/Length of Stay Estimated LOS: Convalescent Care Less Than 30 days Type of Care Needed: Skilled Rehab Potential: Fair Prognosis: Fair Additional Orders/Day of Discharge Day of Discharge: 05/30/22 Dietary and Speech Recommendations Dietitian Recommendations/Changes: Continue liberalized regular diet due to decreased appetite as pt reports. Will try 120 ml ensure clear TID w/ medpass as tolerated. Additional ONS as needed depending on meal intake. Discharge Plan Admission Admit Date/Time: 05/23/22 19:50 Primary Reason for Your Visit: Shortness of breath Attending Provider: Charmaine Bailon Primary Care Provider: Mike Lino Consulting Providers: Ignacio Torres ; Horace Kerr ; Joann Fish ; Mike Hooper ; Lara Rodas ; Maria Luisa Garcia ; Sarah Sarmiento [employer] Instructions Patient Instructions: ED Influenza (Adult) Additional Instructions / Restrictions: DISCHARGE INSTRUCTIONS PLEASE READ ?Your carvedilol was held due to your blood pressure, once this increases you can continue this ?Your lisinopril was also held due to your blood pressure reading, once this increases this can likely be resumed as well ?Your water pill was held as you have not appear to be fluid overloaded, would recommend weighing yourself daily and if you gain more than 2 pounds or begin to have swelling in your extremities this may need to be restarted. Given that your water pills been held and your potassium supplement has been held as well ?You are taking 0.5 mg of Ativan as needed at bedtime here, will leave adjustment at the discretion of your provider ?Morphine was listed on your home medication list but you have not required that since admission is unclear how often it was being taken, will defer management of these medications to hospice and excepting facility ?Would recommend to more days of prednisone 40 mg and then can discontinue or decrease to previous home dose of this was being taken regularly -Please call your primary care provider's office upon discharge to schedule a hospital follow up within 1 week. -For any concerning signs or symptoms please call 911 or proceed to the nearest emergency department Discharge Orders/Prescriptions Prescriptions: New prednisone 20 mg Tablet 40 mg PO 0800 2 Days Qty: 4 0RF Continued tamoxifen 20 mg tablet 20 mg PO DAILY 90 Days Qty: 90 3RF cholecalciferol (vitamin D3) 125 mcg (5,000 unit) capsule 125 mcg PO DAILY Spiriva Respimat 2.5 mcg/actuation mist 2 puff inhalation QDAY Qty: 3 3RF Rx Instructions: administer at approximately the same time(s) each day albuterol sulfate 1 INHALER inhaler 1 puff INHALATION DAILY levothyroxine 137 MCG tablet 137 mcg PO DAILY aspirin 81 MG tablet,chewable 81 mg PO DAILY@0800 Qty: 30 1RF ipratropium-albuterol 0.5 mg-3 mg(2.5 mg base)/3 mL solution for nebulization 3 ml inhalation Q4H PRN ipratropium-albuterol 0.5 mg-3 mg(2.5 mg base)/3 mL solution for nebulization 3 ml inhalation Q2H PRN PRN (Reason: SOB/Wheezing) sennosides-docusate sodium [Senexon-S] 8.6-50 mg tablet PO omeprazole 20 mg capsule,delayed release(DR/EC) 20 mg PO BID clopidogrel [Plavix] 75 mg tablet 75 mg PO DAILY atorvastatin 40 mg tablet 40 mg PO DAILY Qty: 90 3RF Changed lorazepam 0.5 mg tablet 0.5 mg PO QHS PRN (Reason: ANXIETY) Qty: 7 0RF Discontinued morphine concentrate 100 mg/5 mL (20 mg/mL) solution 2.5 mg PO Q6H PRN (Reason: SOB) diazepam 2 mg tablet 2 - 4 mg PO DAILY PRN oxycodone 5 mg tablet 2.5 mg PO BID PRN prednisone 10 mg tablet 10 mg PO DAILY Qty: 100 3RF potassium chloride 10 mEq tablet extended release 10 meq PO DAILY lorazepam 0.5 mg tablet 0.5 mg PO Q2H PRN PRN (Reason: Anxiety/SOB) morphine 15 mg tablet extended release 15 mg PO TID Rx Instructions: Takes at 0600, 1400, 2200 furosemide 20 mg tablet 20 mg PO DAILY carvedilol 3.125 mg tablet 3.125 mg PO BID lisinopril 5 mg tablet 5 mg PO DAILY Qty: 90 3RF prednisone 10 mg tablet 10 mg PO QDAY Qty: 30 0RF Rx Instructions: take 4 tabs for three days, then 3 tabs for three days, then 2 tabs for three days, then 1 tab for 3 days esomeprazole magnesium 20 mg capsule,delayed release(DR/EC) 20 mg PO DAILY Qty: 90 3RF Referrals / Follow Up: Mike Lino MD [Primary Care Provider] - Within 1 Week Disposition Disposition (needs filled in before D/C Order can be placed): Residential Facility
--- NOTE | 2022-05-30 15:36 | PCM.DC.SUM ---
Providers Date of Admission: 05/23/22 Date of Discharge: 05/30/22 Primary Care Physician: Dr. Mike Lino MD Consultations 05/27/22 12:58 Consult: Hospice / Palliative Care Routine Consulting Provider: [facility] Reason for Consult: evaluate for in patient unit EMERGENT Consult: No MD Notified: Yes Date Notified: 05/27/22 Time Notified: 12:59 Method of Notification: Answering Service Reason For Visit: INFLUENZA A INFECTION Diagnosis Discharge Diagnosis (1) Acute respiratory failure with hypoxia and hypercapnia: Status: Acute Code(s): J96.01 - Acute respiratory failure with hypoxia; J96.02 - Acute respiratory failure with hypercapnia (2) Influenza A: Status: Acute Code(s): J10.1 - Influenza due to other identified influenza virus with other respiratory manifestations (3) Hyponatremia: Status: Acute Code(s): E87.1 - Hypo-osmolality and hyponatremia Plan #Acute hypercapnic and hypoxemic respiratory failure secondary to influenza A bronchitis: Chest x-ray shows bibasilar scarring but no acute abnormality. #Nausea #COPD exacerbation due to influenza A bronchitis #Tobacco abuse Medications at Discharge Home Medications albuterol sulfate 90 mcg/actuation aerosol inhaler 1 puff inhalation DAILY asthma 10/21/17 levothyroxine 137 mcg tablet 137 mcg PO DAILY thyroid 05/12/19 aspirin 81 mg chewable tablet 81 mg PO DAILY@0800 ##30 06/28/19 cholecalciferol (vitamin D3) 125 mcg (5,000 unit) capsule 125 mcg PO DAILY Check with primary doctor 02/23/21 atorvastatin 40 mg tablet 40 mg PO DAILY cholesterol #90 tabs 05/28/21 tamoxifen 20 mg tablet 20 mg PO DAILY 90 days #90 tabs 07/12/21 tiotropium bromide 2.5 mcg/actuation mist for inhalation (Spiriva Respimat) 2 puff inhalation QDAY #3 ea 10/03/21 clopidogrel 75 mg tablet (Plavix) 75 mg PO DAILY Anti-platelet 05/25/22 ipratropium 0.5 mg-albuterol 3 mg (2.5 mg base)/3 mL nebulization soln 3 ml inhalation Q2H PRN PRN SOB/Wheezing 05/25/22 ipratropium 0.5 mg-albuterol 3 mg (2.5 mg base)/3 mL nebulization soln 3 ml inhalation Q4H PRN SOB 05/25/22 omeprazole 20 mg capsule,delayed release 20 mg PO BID GERD 05/25/22 sennosides 8.6 mg-docusate sodium 50 mg tablet (Senexon-S) PO Constipation 05/25/22 lorazepam 0.5 mg tablet 0.5 mg PO QHS PRN ANXIETY #7 tabs 05/30/22 prednisone 20 mg tablet 40 mg PO 0800 2 days #4 tabs 05/30/22 Hospital Course Summary of Care Provided Minutes Spent on Discharge: 35 Hospital Course: 76-year-old female with a history of COPD on 3 L of home O2 baseline, CHF, breast cancer, hypothyroidism, tobacco use who presented to [facility] 05/23/2022 with 2 days of worsening shortness of breath. She was admitted for acute exacerbation of COPD and was found to have influenza A. She was given nebs and steroids as well as Tamiflu. Was frequently dependent on BiPAP initially but breathing improved over time. She did develop nausea after several days for unclear reasons but possibly given her influenza and was getting IV antiemetics. Slowly began to improve. There was confusion of her home medication list and this was updated as much as possible though she was unsure of her medications, only required Ativan nightly did not receive any opiates while here though med list had stated she was on Ativan, Valium, morphine. Did well adjust the as needed Ativan nightly, will defer to hospice for further pain medication and benzodiazepine adjustment. Stable for transfer to skilled facility. On day of discharge she reported her shortness of breath was there but significantly improved, nausea and abdominal pain improving as well. No diarrhea. Discharge instructions including medication changes as below: ?Your carvedilol was held due to your blood pressure, once this increases you can continue this ?Your lisinopril was also held due to your blood pressure reading, once this increases this can likely be resumed as well ?Your water pill was held as you have not appear to be fluid overloaded, would recommend weighing yourself daily and if you gain more than 2 pounds or begin to have swelling in your extremities this may need to be restarted.? Given that your water pills been held and your potassium supplement has been held as well ?You are taking 0.5 mg of Ativan as needed at bedtime here, will leave adjustment at the discretion of your provider ?Morphine was listed on your home medication list but you have not required that since admission is unclear how often it was being taken, will defer management of these medications to hospice and excepting facility ?Would recommend to more days of prednisone 40 mg and then can discontinue or decrease to previous home dose of this was being taken regularly -Please call your primary care provider's office upon discharge to schedule a hospital follow up within 1 week. -For any concerning signs or symptoms please call 911 or proceed to the nearest emergency department Physical Exam Const alert Constitutional Narrative: Oriented HEENT normocephalic and head/scalp atraumatic Eyes Eyes Narrative: EOM grossly intact, anicteric Neck supple Resp Resp Narrative: No significant increased work of breathing, scattered wheezes much improved Cardio regular rate and regular rhythm GI soft to palpation and non-distended GI Narrative: No rebound, guarding, rigidity Extremity Extremity Narrative: No edema appreciated Neuro moves all extremities Neuro Narrative: No overt focal deficits appreciated Psych Psych Narrative: Cooperative Weight / BMI Weight Weight: 73.5 kg Body Mass Index (BMI) 27.8 ABG / Lab / Microbiology Data Result Diagrams: 05/30/22 06:55 05/30/22 06:55 Laboratory: Laboratory Results - last 24 hr 05/30/22 06:55: WBC 11.3 H, RBC 4.89, Hgb 15.5 H, Hct 44.8, MCV 91.6, MCH 31.7, MCHC 34.6, RDW Std Deviation 47.0 H, RDW Coeff of Ermelinda 14.0, Plt Count 236, MPV 10.2, Immature Gran % (Auto) 2.100 H, Neut % (Auto) 78.1 H, Lymph % (Auto) 10.5 L, [place] % (Auto) 8.7, Eos % (Auto) 0.4, Baso % (Auto) 0.2, Absolute Neuts (auto) 8.8 H, Absolute Lymphs (auto) 1.18, Nucleated RBC % 0 05/30/22 06:55: Sodium 130 L, Potassium 3.5, Chloride 93 L, Carbon Dioxide 31.0, Anion Gap 6, BUN 17, Creatinine 0.64, Estim Creat Clear Calc 42.62, Est GFR (MDRD) Af Amer 116, Est GFR (MDRD) Non-Af 96, BUN/Creatinine Ratio 26.4 H, Glucose 91, Calcium 8.6 Microbiology: Microbiology 05/30/22 15:00 Nasal Secretion SARS-CoV-2 Antigen (Rapid) - Final 05/23/22 18:15 Blood Culture (Wb) - Left Hand Blood Culture - Final No growth in 5 days. 05/23/22 18:20 Blood Culture (Wb) - Left Wrist Blood Culture - Final No growth in 5 days. 05/23/22 16:05 Nasal Secretion SARS-CoV-2 & FLU Antigen (Rapid) - Final Influenzae A Meaningful Use Info Meaningful Use Diagnoses (Choose all that apply): None applicable Discharge Plan Admission Admit Date/Time: 05/23/22 19:50 Primary Reason for Your Visit: Shortness of breath Attending Provider: Charmaine Bailon Primary Care Provider: Mike Lino Consulting Providers: Ignacio Torres ; Horace Kerr ; Joann Fish ; Mike Hooper ; Lara Rodas ; Maria Luisa Garcia ; Sarah Sarmiento [employer] SALES REPRESENTATIVE Instructions Patient Instructions: ED Influenza (Adult) Additional Instructions / Restrictions: DISCHARGE INSTRUCTIONS PLEASE READ ?Your carvedilol was held due to your blood pressure, once this increases you can continue this ?Your lisinopril was also held due to your blood pressure reading, once this increases this can likely be resumed as well ?Your water pill was held as you have not appear to be fluid overloaded, would recommend weighing yourself daily and if you gain more than 2 pounds or begin to have swelling in your extremities this may need to be restarted. Given that your water pills been held and your potassium supplement has been held as well ?You are taking 0.5 mg of Ativan as needed at bedtime here, will leave adjustment at the discretion of your provider ?Morphine was listed on your home medication list but you have not required that since admission is unclear how often it was being taken, will defer management of these medications to hospice and excepting facility ?Would recommend to more days of prednisone 40 mg and then can discontinue or decrease to previous home dose of this was being taken regularly -Please call your primary care provider's office upon discharge to schedule a hospital follow up within 1 week. -For any concerning signs or symptoms please call 911 or proceed to the nearest emergency department Discharge Orders/Prescriptions Prescriptions: New prednisone 20 mg Tablet 40 mg PO 0800 2 Days Qty: 4 0RF Continued tamoxifen 20 mg tablet 20 mg PO DAILY 90 Days Qty: 90 3RF cholecalciferol (vitamin D3) 125 mcg (5,000 unit) capsule 125 mcg PO DAILY Spiriva Respimat 2.5 mcg/actuation mist 2 puff inhalation QDAY Qty: 3 3RF Rx Instructions: administer at approximately the same time(s) each day albuterol sulfate 1 INHALER inhaler 1 puff INHALATION DAILY levothyroxine 137 MCG tablet 137 mcg PO DAILY aspirin 81 MG tablet,chewable 81 mg PO DAILY@0800 Qty: 30 1RF ipratropium-albuterol 0.5 mg-3 mg(2.5 mg base)/3 mL solution for nebulization 3 ml inhalation Q4H PRN ipratropium-albuterol 0.5 mg-3 mg(2.5 mg base)/3 mL solution for nebulization 3 ml inhalation Q2H PRN PRN (Reason: SOB/Wheezing) sennosides-docusate sodium [Senexon-S] 8.6-50 mg tablet PO omeprazole 20 mg capsule,delayed release(DR/EC) 20 mg PO BID clopidogrel [Plavix] 75 mg tablet 75 mg PO DAILY atorvastatin 40 mg tablet 40 mg PO DAILY Qty: 90 3RF Changed lorazepam 0.5 mg tablet 0.5 mg PO QHS PRN (Reason: ANXIETY) Qty: 7 0RF Discontinued morphine concentrate 100 mg/5 mL (20 mg/mL) solution 2.5 mg PO Q6H PRN (Reason: SOB) diazepam 2 mg tablet 2 - 4 mg PO DAILY PRN oxycodone 5 mg tablet 2.5 mg PO BID PRN prednisone 10 mg tablet 10 mg PO DAILY Qty: 100 3RF potassium chloride 10 mEq tablet extended release 10 meq PO DAILY lorazepam 0.5 mg tablet 0.5 mg PO Q2H PRN PRN (Reason: Anxiety/SOB) morphine 15 mg tablet extended release 15 mg PO TID Rx Instructions: Takes at 0600, 1400, 2200 furosemide 20 mg tablet 20 mg PO DAILY carvedilol 3.125 mg tablet 3.125 mg PO BID lisinopril 5 mg tablet 5 mg PO DAILY Qty: 90 3RF prednisone 10 mg tablet 10 mg PO QDAY Qty: 30 0RF Rx Instructions: take 4 tabs for three days, then 3 tabs for three days, then 2 tabs for three days, then 1 tab for 3 days esomeprazole magnesium 20 mg capsule,delayed release(DR/EC) 20 mg PO DAILY Qty: 90 3RF Referrals / Follow Up: Mike Lino MD [Primary Care Provider] - Within 1 Week Disposition Disposition (needs filled in before D/C Order can be placed): [facility] Facility Charges/Coding Visit Charges Inpatient E&M: 87957 Disch Hosp
--- NOTE | 2022-05-30 15:55 | CASEMGMT ---
Discharge Custom Decorating Consultant This teletypewriter operator sent dc orders to [facility]. Wheel Chair transportation set up with [facility] with a transport time of 8:00pm. Nursing staff made aware and patients son Jim. Chris FIERRO Dirt Contractor
--- NOTE | 2022-05-30 17:07 | CASEMGMT ---
Social Work 7000 completed in [employer], unable to get 7000 to print. Notified [facility] of 7000 being completed in [employer], they are able to get document off of [employer] system. Proposed discharge date: 05/30/2022 PLAN: skilled. Iliana Rizzo, RISK MGR-S
--- NOTE | 2022-05-30 22:00 | NURSING ---
pt IV removed, catheter tip intact, covered with gauze. pts telemetry took off. pt left floor with ambulance services at 2200.
== END 2022-05-30 22:00 | disposition skilled nursing facility (03) | DRG 193 ==
LOC: ED 20:32 → PCU 05-24 00:33
PROVIDERS: Internal Medicine; Admitting Provider Hospitalist; Emergency Provider Emergency Medicine; PCP Family Medicine; Visit Provider Internal Medicine
DX: J10.1 Influenza due to other identified influenza virus with other respiratory manifestations (principal); J96.22 Acute and chronic respiratory failure with hypercapnia; J96.21 Acute and chronic respiratory failure with hypoxia; I50.22 Chronic systolic (congestive) heart failure; J44.0 Chronic obstructive pulmonary disease with (acute) lower respiratory infection; J44.1 Chronic obstructive pulmonary disease with (acute) exacerbation; E87.1 Hypo-osmolality and hyponatremia; F10.20 Alcohol dependence, uncomplicated; I25.10 Atherosclerotic heart disease of native coronary artery without angina pectoris; I25.5 Ischemic cardiomyopathy; J20.9 Acute bronchitis, unspecified; I25.2 Old myocardial infarction; E03.9 Hypothyroidism, unspecified; Z85.3 Personal history of malignant neoplasm of breast; Z79.810 Long term (current) use of selective estrogen receptor modulators (SERMs); Z79.82 Long term (current) use of aspirin; Z79.02 Long term (current) use of antithrombotics/antiplatelets; Z86.16 Personal history of COVID-19; Z79.899 Other long term (current) drug therapy; Z79.890 Hormone replacement therapy; Z99.81 Dependence on supplemental oxygen
CPT/HCPCS: 36415; 36600; 71046; 80048; 80053; 82803; 82962; 83605; 84484; 85025; 85610; 85730; 87040; 87426; 87428; 93005; 94002; 94003; 94640; 94667; 94668; 94762; 97162; 97166; 97535; 99251; 99285; 99406; J7030; A4216; G0463; J2405